=== PATIENT | female | born 1995 | race Caucasian/White ===

== ENCOUNTER 2017-05-04 09:42 | Emergency (ER) | payer OTHER, MEDICAID, SELFPAY ==
[2017-05-04 09:44] VITALS: BP 126/77; PULSE 69; RESP 15; TEMP 36.7; O2SAT 97; BMI 27.8
[2017-05-04 11:20] LABS: Carboxyhemoglobin Frac (CO) 3.3 % (0.0-1.5)
--- NOTE | 2017-05-04 11:51 | ED.VISSUMM ---
- ER Visit Summary Date of Service: 05/04/17 Chief Complaint: [Possible chemical exposure] History of Present Illness: The patient is a 21 F [presents to the emergency department with complaint of possible chemical exposure while at work. 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 Patient states that she will likely quit this job. Patient states when she was out of the garage her symptoms seem to resolve. Patient describes just a minimal headache at this time. She denies any visual changes.] Physical Examination: [HEENT-PERRLA, EOMI. Cranial nerves II through XII grossly intact. TMs clear. Mucous membranes moist. No adenopathy. Cardiovascular-regular rate and rhythm without murmur or ectopy Lungs-clear to auscultation, chest wall stable without crepitus or subcu emphysema Abdomen-normoactive bowel sounds, soft, nontender, no rebound or rigidity, no peritoneal signs. Extremities-intact ?4, normal range of motion, normal pulses, atraumatic] Test Results: [Carboxyhemoglobin was 3.3] Emergency Department Course and Treatment: [None indicated] Treatment Plan: [Patient states that she will not be returning to that garage. Patient is instructed to avoid the garage till issues associated with the propane heaters and the air compressor there are resolved.] Disposition: [Discharged home in stable condition. Patient advised to follow-up with corporate care in 3-5 days.] Impression: [Chemical exposure-etiology uncertain-suspect related to propane heaters] This note was generated with [employer] dictation software. It may contain incorrect words, spelling, and punctuation that were not noted in review of the chart prior to signing ED Disposition - Plan for ED Patient: Chief Complaint: Other, Pain/Inj Referrals: Care Physician,No Primary [Primary Care Provider] -
--- NOTE | 2017-05-04 11:54 | ED.DEP ---
ED Disposition - Plan for ED Patient: Chief Complaint: Other, Pain/Inj Instructions: ED Chemical Conjunctivitis, ED Inhalation Chemical Referrals: Care Physician,No Primary [Primary Care Provider] - Corporate,Care [GROUP OF PHYSICIANS] - 3-5 Days
== END 2017-05-04 12:12 | disposition home or self-care (01) ==
PROVIDERS: Emergency Provider Emergency Medicine
DX: Z77.098 Contact with and (suspected) exposure to other hazardous, chiefly nonmedicinal, chemicals (principal); Z72.0 Tobacco use
CPT/HCPCS: 82375; 99282

== ENCOUNTER → 2022-12-06 | Outpatient (CLI) | payer OTHER, BC, SELFPAY ==
--- NOTE | 2022-12-06 14:42 | RAD_ITS ---
STUDY: X-RAY CHEST REASON FOR EXAM: Female, 27 years old. cough TECHNIQUE: PA and lateral views of the chest. COMPARISON: None. FINDINGS: The lungs are clear and expanded. There is no demonstrated pleural abnormality. Normal size heart. Normal mediastinum and joe. Normal visualized pulmonary arteries. Normal visualized aortic arch and descending thoracic aorta. Normal visualized thoracic spine. Normal visualized ribs, clavicles, and shoulders. There is no demonstrated abnormality of the visualized soft tissue structures of the upper abdomen. RAD/Chest PA and Lateral IMPRESSION: Normal x-ray examination of the chest. Electronically Signed: Homero Painter MD at 15:38 EDT ,
== END | disposition home or self-care (01) ==
LOC: MTRAD 14:41
PROVIDERS: Referring Provider Physician Assistant; Visit Provider Physician Assistant
DX: R05.9 Cough, unspecified (principal)
CPT/HCPCS: 71046

== ENCOUNTER 2024-07-15 16:35 | Emergency (ER) | payer OTHER, SELFPAY ==
[2024-07-15 16:36] VITALS: BP 120/60; PULSE 82; RESP 19; TEMP 36.5; O2SAT 99; BMI 25.4
[2024-07-15 16:55] LABS: Absolute Lymphocyte Count 2.69 X10^3/uL (0.83-4.51); Absolute Neutrophil Count 6.2 X10^3/uL (2.0-7.7); Basophil# 0.05 X10^3/uL; Basophil% 0.5 % (0-1); Hematocrit 39.4 % (37-47); Hemoglobin 13.5 g/dL (12.0-15.0); Lymphocyte # 2.69 X10^3/ul (0.83-4.51); Lymphocyte % 27.6 % (19-41); Mean Corp Hgb Conc 34.3 g/dL (32-36); Mean Corpuscular Hgb 31.9 pg (27.0-32.0); Mean Corpuscular Volume 93.1 fL (81-99); Mean Platelet Vol. 9.8 fl (6.2-12.0); Monocyte# 0.65 X10^3/uL; Monocyte% 6.7 % (0-10); NRBC Flagged by Analyzer 0 % (0-5); Neutrophil # 6.23 X10^3/uL (2.7-7.7); Neutrophil % 63.8 % (47-70); Platelet Count 277 K/mm3 (150-450); RBC Distribution Width CV 13.3 % (11.6-14.6); RBC Distribution Width SD 45.8 fl (35.1-43.9); Red Blood Count 4.23 M/mm3 (4.2-5.4); White Blood Count 9.8 K/mm3 (4.4-11.0)
[2024-07-15 17:14] LABS: ALB/GLOB Ratio 1.4 RATIO (0.9-2.4); AST(SGOT) 13 U/L (<=31); Alanine Aminotransfer ALT/SGPT 7 U/L (<=34); Albumin, Serum 4.3 g/dL (3.5-5.0); Alkaline Phosphatase 94 U/L (35-104); Anion Gap 11 (5-15); BUN 5 mg/dL (4-19); BUN/Creat Ratio 5.7 RATIO (10-20); Calcium,Total 9.3 mg/dL (7.6-11.0); Carbon Dioxide 23.8 mmol/L (21.0-32.0); Chloride 105 mmol/L (98-108); EST Glomerular Filtration Rate 91 (>60); Estimated Creatinine Clearance 89.21 ml/min (50-250); Globulin 3.2 g/dL (2.2-4.2); Glucose 55 mg/dL (70-99); Lipase 32 U/L (13-75); Protein, Total 7.4 g/dL (5.9-8.4); Sodium Level 139 mmol/L (133-145); Total Bilirubin 1.02 mg/dL (0.00-1.30)
[2024-07-15 17:19] LABS: Internal QC Validated? YES +Cl - CLEAR BKGD; Pregnancy, Serum, hCG Quali. POSITIVE Negative
--- NOTE | 2024-07-15 17:36 | US_ITS ---
PROCEDURE: TRANSVAGINAL W/PREG US 07/15/2024 REASON FOR EXAM: ABD PAIN EARLY TECHNIQUE: Transvaginal FINDINGS: Comments: Number of Gestational Sacs: 1 Gestational Sac Shape: Normal Number of Fetuses: 1 Heart Rate: (average) Survey of Visible Anatomic Structures: Grossly unremarkable for gestational age. Nasal Bones: Yolk Sac: Present and unremarkable. Placenta: Presently not well-visualized Amniotic Fluid Volume: Subjectively normal for gestational age. Uterine Abnormalities: Maternal uterus is unremarkable. Ovaries / Adnexa: Both maternal ovaries are visualized and unremarkable. DIMENSIONS: Parameter Measurement / EGA [place] Rump Length: Not visualized/ Gestational Sac: 7 mm/5 weeks 3 days Yolk Sac: 2 mm/ ESTIMATED GESTATIONAL AGE: By Ultrasound: 5 weeks 3 days By LMP: 5 weeks 2 days ESTIMATED DATE OF DELIVERY: By Ultrasound: 03/14/2025 By LMP: 03/15/2025 US/Transvaginal w/Preg US IMPRESSION: Early intrauterine gestational sac with a yolk sac but no identifiable po le. Differential diagnosis includes an early intrauterine , or incomplete . Serial beta HCG measurements i s recommended. Reading Location: [id number]
[2024-07-15 18:59] VITALS: BP 100/63; PULSE 67; RESP 14; O2SAT 100
--- NOTE | 2024-07-15 19:20 | EX.ED.DYSGE1 ---
HPI History of Present Illness Chief Complaint: Abd Pain [facility] Medical History (Updated 12/06/22 @ 15:33 by Fausto CHRISTIANSON, PA) Contact with and (suspected) exposure to other viral communicable diseases Acute streptococcal pharyngitis COVID-19 URI (upper respiratory infection) Home Medications ?Medication ?Instructions ?Recorded ?Last Taken ?Type ovzxiptaxxvtzoz-qxneehvqzxigqro-FP 10 ml PO Q4H PRN 12/06/22 Unknown History 2 mg-30 mg-10 mg/5 mL oral syrup clindamycin HCl 300 mg capsule 300 mg PO Q8H 12/06/22 Unknown History methylprednisolone 4 mg tablets in See Rx Instructions PO PER PKG DIR 12/06/22 Unknown Rx a dose pack (Medrol (Landry)) #21 tabs norgestimate 0.25 mg-ethinyl 1 tab PO DAILY 12/06/22 Unknown History estradiol 35 mcg tablet ([place]Linyah) Allergy/AdvReac Type Severity Reaction Status Date / Time amoxicillin Allergy Angioedema Verified 12/06/22 14:39 Penicillins (PCN) Allergy Angioedema Verified 12/06/22 14:39 Social History (Updated 12/06/22 @ 15:38 by Brooklyn Bell) Smoking Status: Current every day smoker tobacco type: e-cigarettes alcohol intake: never EXAM Physical Exam Const Vital Signs: 07/15/24 16:36 07/15/24 18:59 Temperature 97.7 F L Temperature Source Temporal Pulse Rate 82 67 Respiratory Rate 19 H 14 Blood Pressure 120/60 100/63 Blood Pressure Mean 80 75 Pulse Ox 99 100 Oxygen Delivery Method Room Air Room Air [facility] MDM MDM Narrative Medical decision making narrative: HISTORY OF PRESENT ILLNESS: Chief complaint: Abdominal pain, early 28-year-old female who is a G1, P0 presents with concern for abdominal pain in early . She did note some spotting several days ago but denies any bleeding. Denies any STDs. Denies abdominal pain now but does note cramping throughout the last 5 weeks. Notes nausea and breast tenderness as well. Denies vomiting. Denies history abdominal surgeries. Denies urinary complaints. Denies changes in bowel habits. REVIEW OF SYSTEMS: Pertinent positives: Abdominal pain, vaginal spotting Pertinent negatives: Vomiting PHYSICAL EXAM: Nursing triage notes reviewed, Vital signs reviewed Constitutional: please see mdm HENT: MMM Eyes: Pupils equal round and reactive to light, Extraocular muscles intact Neck: No stridor, no JVD, full neck ROM Lungs: Clear to auscultation, No wheezing or rales. No increased work of breathing, no conversational dyspnea, no accessory muscle use, no nasal flaring. No respiratory distress noted Heart: Regular rate and rhythm, No murmurs, No rubs and No gallops, 2+ distal pulses (radial, femoral, posterior tibial) in all extremities Abdomen: Soft, there is no tenderness, rigidity, rebound or guarding, no obvious peritoneal signs, no palpable pulsatile abdominal masses, no auscultated abdominal bruit : No CVAT Extremities: No edema Neuro: No new focal neurological deficits, cranial nerves II through XII intact, 5/5 strength in all present extremities. Intact sensation to light touch in all present extremities, 2+ reflexes bilateral patella tendons. Skin: No rash or lesions noted MEDICAL DECISION MAKING: Chief Complaint: please see HPI External records reviewed: Reviewed prior imaging studies Factors affecting care: none Social determinants of health: none History obtained from others: none Consults: none [facility] Narrative: The patient was initially hemodynamically stable, afebrile and nontoxic-appearing. Abdominal exam was benign I considered the following differential diagnosis: Early intrauterine , ectopic , miscarriage I obtained a ultrasound and labs ALL IMAGES (IF OBTAINED) HAVE BEEN PERSONALLY REVIEWED AND INTERPRETED BY MYSELF. CBC with no leukocytosis, no anemia or thrombocytopenia CMP without evidence of acute kidney injury, significant electrolyte abnormality, anion gap to suggest end organ hypo-perfusion, no evidence of metabolic acidosis with a normal bicarbonate, no evidence of hepatobiliary obstructive pathology. Lipase is wnl indicating no pancreatic inflammation. Serum test Transvaginal ultrasound showed findings consistent with likely intrauterine although is not definitive. Patient would need repeat outpatient quant and ultrasound. Discussed this with patient who agreed to follow with RN BARIATRIC. Strict return precautions were discussed. Follow-up was arranged. The patient and/or family, caregivers express understanding. The patient and/or family, caregivers agrees with the plan. Shared decision making: I will have a discussion with the patient and or visitors regarding risk/benefits of further testing or admission. They will be made aware of of the risk/benefits inherent in this decision they will be given the opportunity to voice understanding. Total critical care time today provided was at least 0 minutes. This excludes separately billable procedures. Critical care time (if documented) is secondary to the patient having high probability of clinically significant/life threatening deterioration in the patient's condition which required my urgent intervention. Impression: 1. Abdominal pain 2. First trimester Dispo: Discharge home This note was generated with [employer] dictation software. It may contain incorrect words, spelling, and punctuation that were not noted in review of the chart prior to signing. Lab Data Labs: Laboratory Results - last 24 hr 07/15/24 16:45 WBC 9.8 RBC 4.23 Hgb 13.5 Hct 39.4 MCV 93.1 MCH 31.9 MCHC 34.3 RDW Std Deviation 45.8 H RDW Coeff of Jodi 13.3 Plt Count 277 MPV 9.8 Immature Gran % (Auto) 0.400 Neut % (Auto) 63.8 Lymph % (Auto) 27.6 [place] % (Auto) 6.7 Eos % (Auto) 1.0 Baso % (Auto) 0.5 Absolute Neuts (auto) 6.2 Absolute Lymphs (auto) 2.69 Nucleated RBC % 0 Sodium 139 Potassium 4.0 Chloride 105 Carbon Dioxide 23.8 Anion Gap 11 BUN 5 Creatinine 0.90 Estim Creat Clear Calc 89.21 Est GFR (MDRD) Non-Af 91 BUN/Creatinine Ratio 5.7 L Glucose 55 L Calcium 9.3 Total Bilirubin 1.02 AST 13 ALT 7 Alkaline Phosphatase 94 Total Protein 7.4 Albumin 4.3 Globulin 3.2 Albumin/Globulin Ratio 1.4 Lipase 32 Serum , Qual POSITIVE H Radiography Diagnostic Testing: Clinical Impression(s) from Imaging Studies Obstetrics Ultrasound 07/15/24 17:36 IMPRESSION: Early intrauterine gestational sac with a yolk sac but no identifiable pole. Differential diagnosis includes an early intrauterine , or incomplete . Serial beta HCG measurements is recommended. Reading Location: [id number] Discharge Plan Triage Chief Complaint: Abd Pain ED Provider: Jacinto Abarca Dx/Rx/DC Orders Prescriptions: No Action vfftermqxqcwfpa-owoxkzxif-PL 2-30-10 mg/5 mL syrup 10 ml PO Q4H PRN Patient Comments: take TEN ml BY MOUTH EVERY 4 HOURS BY MOUTH NEEDED FOR 5 DAYS clindamycin HCl 300 mg capsule 300 mg PO Q8H Patient Comments: TAKE 1 CAPSULE BY MOUTH EVERY 8 HOURS FOR 10 DAYS norgestimate-ethinyl estradiol [[place]ah] 0.25-35 mg-mcg tablet 1 tab PO DAILY Patient Comments: Take 1 tablet by mouth daily. methylprednisolone [Medrol (Landry)] 4 mg tablets,dose pack See Rx Instructions PO PER PKG DIR Qty: 21 0RF Rx Instructions: PO PER PKG DIR Primary Care Provider: Elisabet Morgan NP Referrals: Elisabet Morgan NP, JORDAN WORKER-C [Primary Care Provider] - Print Language: Korean
[2024-07-15 20:00] VITALS: PULSE 72; RESP 16
[2024-07-15 20:29] LABS: hCG Titer Quant., Serum 5000 mIU/mL (<9 non-preg)
[2024-07-15 21:39] VITALS: BP 100/63; PULSE 72; RESP 15; TEMP 36.5; O2SAT 100
== END 2024-07-15 21:40 | disposition home or self-care (01) ==
PROVIDERS: Emergency Provider Emergency Medicine; PCP Nurse Practitioner Family; Visit Provider Emergency Medicine
DX: O99.891 Other specified diseases and conditions complicating pregnancy (principal); R10.9 Unspecified abdominal pain; Z3A.00 Weeks of gestation of pregnancy not specified
CPT/HCPCS: 76817; 80053; 83690; 84702; 84703; 85025; 86900; 86901; 99282; A4216

== ENCOUNTER 2024-08-29 22:29 | Emergency (ER) | payer OTHER, SELFPAY ==
[2024-08-29 22:29] VITALS: BP 130/76; PULSE 72; RESP 18; TEMP 36.8; O2SAT 100; BMI 25.4
[2024-08-29 22:58] LABS: Absolute Lymphocyte Count 3.48 X10^3/uL (0.83-4.51); Absolute Neutrophil Count 8.1 X10^3/uL (2.0-7.7); Basophil# 0.04 X10^3/uL; Basophil% 0.3 % (0-1); Eosinophil# 0.14 X10^3/uL; Eosinophils% 1.1 % (0-5); Hematocrit 35.6 % (37-47); Hemoglobin 12.2 g/dL (12.0-15.0); Lymphocyte # 3.48 X10^3/ul (0.83-4.51); Mean Corp Hgb Conc 34.3 g/dL (32-36); Mean Corpuscular Hgb 31.9 pg (27.0-32.0); Mean Corpuscular Volume 93.2 fL (81-99); Monocyte# 0.62 X10^3/uL; NRBC Flagged by Analyzer 0 % (0-5); Neutrophil # 8.13 X10^3/uL (2.7-7.7); Neutrophil % 65.4 % (47-70); Platelet Count 242 K/mm3 (150-450); RBC Distribution Width CV 12.9 % (11.6-14.6); RBC Distribution Width SD 44.1 fl (35.1-43.9); Red Blood Count 3.82 M/mm3 (4.2-5.4); White Blood Count 12.4 K/mm3 (4.4-11.0)
--- NOTE | 2024-08-29 23:03 | EDS_ITS ---
HPI HPI - Female History of Present Illness Chief Complaint: Vag Bld, Preg Narrative Narrative: Patient is a 28-year-old female with no known significant past medical history who presented to the emergency department the chief complaint of brown spotting. Patient states that she about a week ago started having brown discharge states that she followed up with her CLERK GUIDE in outpatient setting they did an ultrasound that showed a intrauterine and ultimately sent her home. States that for the past few days she has had cramping in the lower portion of her abdomen noted that today while at work she had bright red blood and more brown discharge and her usual therefore she discussed with her mother and they decided to come here for the evaluation management. [facility] Medical History Contact with and (suspected) exposure to other viral communicable diseases Acute streptococcal pharyngitis COVID-19 URI (upper respiratory infection) Home Medications ?Medication ?Instructions ?Recorded ?Last Taken ?Type obpjiivokgbmwqb-rmesrllzhovmkqh-KM 10 ml PO Q4H PRN Unknown History 2 mg-30 mg-10 mg/5 mL oral syrup clindamycin HCl 300 mg capsule 300 mg PO Q8H 12/06/22 Unknown History methylprednisolone 4 mg tablets in See Rx Instructions PO PER PKG DIR 12/06/22 Unknown Rx a dose pack (Medrol (Landry)) #21 tabs norgestimate 0.25 mg-ethinyl 1 tab PO DAILY 12/06/22 U nknown History estradiol 0.035 mg tablet ([place]-Linyah) Allergy/AdvReac Type Severity Reaction Status Date / Time amoxicillin Allergy Angioedema Verified 08/29/24 22:31 Penicillins (PCN) Allergy Angioedema Verified 08/29/24 22:31 Social History Smoking Status: Current every day smoker tobacco type: e-cigarettes alcohol intake: never ROS ROS ED ROS Narrative constitutional: Denies any fevers or chills Cardiovascular: Denies chest pain Respiratory: Denies shortness of breath Abdomen: Complains of abdominal cramping as noted above, states that she is cons tantly nauseous since getting this is not new denies vomiting : Complains of spotting as noted above denies any painful urination Neurological: Denies any numbness, wheeze, tingling Musculoskeletal: Denies back pain Skin: Denies any rashes or lesions EXAM Physical Exam Narrative Exam Narrative: General: Patient lying in bed rest comfortably. In acute distress Head: Atraumatic, normocephalic Eyes: PERRL bilateral, EOMI bilateral, no conjunctival injection noted Neck: Soft, supple, trach midline Cardiovascular: Regular in rhythm no murmurs gallops rubs noted Respiratory: Clear to auscultation bilaterally Abdomen: Soft, nondistended, nontender to palpation Extremities: +5/5 strength noted in the bilateral upper and lower extremities Neurological: Patient follow commands knew that she was at [facility] year is 2024 Skin: Warm, dry, intact no rashes lesions noted Const Vital Signs: 08/29/24 22:29 08/30/24 00:29 08/30/24 02:03 Temperature 98.2 F Temperature Source Oral Pulse Rate 72 67 65 Respiratory Rate 18 16 15 Blood Pressure 130/76 H 92/58 L 92/51 L Blood Pressure Mean 94 69 64 Pulse Ox 100 100 100 Oxygen Delivery Method Room Air Room Air Room Air 08/30/24 04:00 Temperature Temperature Source Pulse Rate 80 Respiratory Rate 18 Blood Pressure 99/63 Blood Pressure Mean 75 Pulse Ox 98 Oxygen Delivery Method Room Air MDM MDM MDM Narrative Medical decision making narrative: Patient is a 28-year-old female who presented to the emergency department with concern of vaginal spotting. On the differential diagnosis includes but not limited to missed , threatened miscarriage, UTI. Once workup is obtained reviewed she will be reevaluated. Patient's CBC was reviewed and showed a white count of 12,000, hemoglobin is 12.2, platelet count of 242. Patient sodium normal 135, potassium normal 3.8, creatinine was noted to be 0.62. Patient's quant level was 63,097. Patient urinalysis reviewed showed a negative nitrites 25 leuks with 1+ bacteria and 0-5 white cells this was sent for culture she was advised to follow-up on this with her CLERK GUIDE. Multiple people attempted to obtain heart tones including we called OB team down and they were unable to do so since this was the case we ordered a transvaginal ultrasound was ordered. Ultrasound reviewed showed a single live intrauterine fundal portion of the uterus with heart tones at 174 beats per minutes. Discussed results with patient she would like to go home at this point time. She is vies follow-up on urine culture with her CLERK GUIDE and she is placed on pelvic rest. She is advised no intercourse nothing inserted in her vagina. She is agreeable spinal course concerns answered she was discharged home in stable condition. Lab Data Labs: Laboratory Results - last 24 hr 08/29/24 08/29/24 22:43 23:10 WBC 12.4 H RBC 3.82 L Hgb 12.2 Hct 35.6 L MCV 93.2 MCH 31.9 MCHC 34.3 RDW Std Deviation 44.1 H RDW Coeff of Jodi 12.9 Plt Count 242 MPV 10.0 Immature Gran % (Auto) 0.200 Neut % (Auto) 65.4 Lymph % (Auto) 28.0 [place] % (Auto) 5.0 Eos % (Auto) 1.1 Baso % (Auto) 0.3 Absolute Neuts (auto) 8.1 H Absolute Lymphs (auto) 3.48 Nucleated RBC % 0 Sodium 135 Potassium 3.8 Chloride 102 Carbon Dioxide 23.1 Anion Gap 10 BUN 7 Creatinine 0.62 L Estim Creat Clear Calc 129.75 Est GFR (MDRD) Non-Af 126 BUN/Creatinine Ratio 10.5 Glucose 83 Calcium 8.9 HCG, Quant 06251 H Urine Color Yellow Urine Clarity Clear Urine pH 6.0 Ur Specific [place] 1.025 Urine Protein 30 H Urine Glucose (UA) Normal Urine Ketones 15 H Urine Occult Blood 250 H Urine Nitrite Negative Urine Bilirubin Negative Urine Urobilinogen Normal Ur Leukocyte Esterase 25 H Urine RBC 0-5 SEEN Urine WBC 0-5 SEEN Ur Squamous Epith Cells 5-10 SEEN Urine Bacteria 1+ Urine Mucus 0 SEEN Blood Type O NEGATIVE Radiography Diagnostic Testing: Clinical Impression(s) from Imaging Studies Obstetrics Ultrasound 08/30/24 03:05 IMPRESSION: Single live intrauterine fundal portion of the uterus with heart tones 174 beats per minute. Reading Location: [facility] Discharge Plan Triage Chief Complaint: Vag Bld, Preg ED Provider: Carlos Bliss Dx/Rx/DC Orders Clinical Impression: Vaginal bleeding affecting early Prescriptions: No Action knmrbnmwdqqyggw-mlgqpbqqt-AD 2-30-10 mg/5 mL syrup 10 ml PO Q4H PRN Patient Comments: take TEN ml BY MOUTH EVERY 4 HOURS BY MOUTH NEEDED FOR 5 DAYS clindamycin HCl 300 mg capsule 300 mg PO Q8H Patient Comments: TAKE 1 CAPSULE BY MOUTH EVERY 8 HOURS FOR 10 DAYS norgestimate-ethinyl estradiol [[place]] 0.25-35 mg-mcg tablet 1 tab PO DAILY Patient Comments: Take 1 tablet by mouth daily. methylprednisolone [Medrol (Landry)] 4 mg tablets,dose pack See Rx Instructions PO PER PKG DIR Qty: 21 0RF Rx Instructions: PO PER PKG DIR Primary Care Provider: Elisabet Morgan NP Referrals: Elisabet Morgan RECORDS MANAGEMENT SPECIALIST, RECORDS MANAGEMENT SPECIALIST-C [Primary Care Provider] - Activity Restrictions/Additional Instructions: Follow-up with your CLERK GUIDE. You were given a hard copy of your ultrasound re port. You are placed on pelvic rest no sex nothing inserted in your vagina until you are cleared by CLERK GUIDE. Follow-up on urine culture with your OB as well. Print Language: Danish Disposition Disposition: Home, Self Care
[2024-08-29 23:16] LABS: Mucous, Urine 0 SEEN /hpf (<or=2+)
[2024-08-29 23:21] LABS: Glucose, Dipstick Normal (Normal); Ketone-Dipstick 15 mg/dl (Negative); Leukocyte Esterase-Dipstick 25 /ul (Negative); Nitrite-Dipstick Negative (Negative); Occult Blood-Urine 250 /ul (Negative); Protein-Dipstick 30 mg/dl (Negative); Specific Gravity, Urine 1.025 (1.002-1.030); Urine Bilirubin Dipstick Negative (Negative); Urine Urobilinogen Normal (Normal)
[2024-08-29 23:34] LABS: Color, Urine Yellow (Yellow); Urine Clarity Clear (Clear)
[2024-08-29 23:43] LABS: Anion Gap 10 (5-15); BUN 7 mg/dL (4-19); BUN/Creat Ratio 10.5 RATIO (10-20); Calcium,Total 8.9 mg/dL (7.6-11.0); Carbon Dioxide 23.1 mmol/L (21.0-32.0); Chloride 102 mmol/L (98-108); Creatinine, Serum 0.62 mg/dL (0.70-1.20); EST Glomerular Filtration Rate 126 (>60); Estimated Creatinine Clearance 129.75 ml/min (50-250); Glucose 83 mg/dL (70-99); Potassium 3.8 mmol/L (3.3-5.1); Sodium Level 135 mmol/L (133-145)
[2024-08-29 23:49] LABS: Squamous Epithelial Cells - UA 5-10 SEEN /hpf (5-10); White Blood Cells 0-5 SEEN /hpf (0-5)
[2024-08-29 23:51] LABS: Bacteria 1+ /hpf (None Seen); Red Blood Cells-Urine 0-5 SEEN /hpf (0-5)
[2024-08-30 00:29] VITALS: BP 92/58; PULSE 67; RESP 16; O2SAT 100
[2024-08-30 02:03] VITALS: BP 92/51; PULSE 65; RESP 15; O2SAT 100
--- NOTE | 2024-08-30 03:00 | ED.RN ---
KATIE Richards and KATIE Keen attempted to obtain heart rate with the doppler, [facility] called and two additional nurses attempted to obtain heart rate. All unable to obtain heart tones at this time. notified.
--- NOTE | 2024-08-30 03:05 | US_ITS ---
PROCEDURE: TRANSVAGINAL W/PREG US 08/30/2024 REASON FOR EXAM: VAG BLEEDING FIRST TRIMESTER TECHNIQUE: Transvaginal 1st trimester ultrasound FINDINGS: Comments: Transvaginal imaging was performed Single live intrauterine fundal portion of the uterus with heart tones 174 beats per minute. No sandip-sac hemorrhage identified. Estimated gestational age by ultrasound 11 weeks and 3 days, TORRI 03/18/2025 Estimated gestational age by LMP 11 weeks 6 days, TORRI 03/15/2025 4 mm yolk sac. The uterus measures 11.4 x 9.8 x 7.1 cm. Cervix appears closed. The right ovary measures 2.8 x 2.9 x 1.4 cm and appears within limits. The left ovary measures 2.5 x 2.4 x 1.7 cm and appears within limits. No evidence of adnexal mass. No free fluid seen. US/Transvaginal w/Preg US IMPRESSION: Single live intrauterine fundal portion of the uterus with hear t tones 174 beats per minute. Reading Location: [id number]
[2024-08-30 03:07] LABS: hCG Titer Quant., Serum 63097 mIU/mL (<9 non-preg)
[2024-08-30 04:00] VITALS: BP 99/63; PULSE 80; RESP 18; O2SAT 98
[2024-08-30 05:37] VITALS: BP 96/55; PULSE 60; RESP 18; TEMP 36.8; O2SAT 99
== END 2024-08-30 05:38 | disposition home or self-care (01) ==
PROVIDERS: Emergency Provider Emergency Medicine; PCP Nurse Practitioner Family; Visit Provider Emergency Medicine
DX: O20.9 Hemorrhage in early pregnancy, unspecified (principal); F17.290 Nicotine dependence, other tobacco product, uncomplicated; O99.330 Smoking (tobacco) complicating pregnancy, unspecified trimester; Z3A.00 Weeks of gestation of pregnancy not specified
CPT/HCPCS: 76817; 80048; 81001; 84702; 85025; 86900; 86901; 87086; 99283; A4216

== ENCOUNTER 2025-03-09 02:55 | Outpatient (CLI) | payer MEDICAID, SELFPAY ==
--- OUTSIDE RECORDS SUMMARY | 2025-03-09 03:05 | XMS RPT_ITS | CCD ---
Author Organization [facility] Care Team Providers Care Director Environmental Name Role Phone PROVIDER, UNKNOWN Admitting Unavailable BAUDILIO ARCHIBALD Attending Unavailable Queden SPECIAL SERVICES COORDINATOR.Lulu SERVINny A Primary Care Provider Joselyn Lovelace MD Primary Care Provider [phone] [facility] SPECIAL SERVICES COORDINATOR.Elisabet SERVIN A Primary Care Provider Care Physician, No Primary Primary Care Provider Unavailable Care Physician, No Primary Referring Provider Un available MEGHAN Dover Attending Provider Joselyn Lovelace MD Primary Care Provider Queden SPECIAL SERVICES COORDINATOR.Lulu SERVINny A Primary Care Provider Queden SPECIAL SERVICES COORDINATOR - GARETH Elisabet Primary Care Provider MALIA VALLES Attending Unavailable [facility] Primary Care Unavailable ES[facility] Primary Care Unavailable KEYONA CONRAD Attending Unavailable QUEDEN, ELISABET Primary Care Unavailable Dr. Jacinto Abarca DO Emergency Provider [phone] Queden POWER GRADER OPERATOR-C, Elisabet Primary Care Provider Carlos Bliss Attending Unavailable Queden POWER GRADER OPERATOR, Elisabet Primary Care Unavailable Queden POWER GRADER OPERATOR, Elisabet Primary Care Unavailable Jacinto Abarca Attending Unavailable Unavailable Primary Care Provider Unavailabl e QUEDEN, ELISABET A Primary Care Unavailable VON LOZANO Attending Unavailable QUEDEN, ELISABET A Primary Care Unavailable GEOFFREY ARTHUR Attending Unava ilable QUEDEN, ELISABET A Primary Care Unavailable ARNOLDO HEREDIA Attending Unavailable ARNOLDO HEREDIA Admitting Unavailable QUEDEN, ELISABET A Primary Care Unavailable QUEDEN, ELISABET A Primary Care Unavailable AGUSTÍN BLACKWELL Attending Unavailable QUEDEN, ELISABET A Primary Care Unavailable SHEETSCAROLYNN Attending Unavailable QUEDEN, ELISABET A Primary Care Unavailable SHEETSCAROLYNN C Referring Unavailable QUEDEN, ELISABET A Primary Care Unavailable HAURY, FREDA Referring Unavailable QUEDEN, ELISABET A Primary Care Unavailable KLARISSA RAIN Attending Unavailable QUEDEN, ELISABET A Primary Care Unavailable QUEDEN, ELISABET A Primary Care Unavailable WISWELLOCTAVIA Attending Unavailable QUEDEN, ELISABET A Primary Care Unavailable HAURY, FREDA Referring Unavailable SUNITHA AGUILAR Attending Unavailable QUEDEN, ELISABET A Primary Care Unavailable HAURY, FREDA Referring Unavailable QUEDEN, ELISABET A Primary Care Unavailable WISOCTAVIA CURTIS Attending Unavailable QUEDEN, ELISABET A Primary Care Unavailable HAURY, FREDA Referring Unavailable QUEDEN, ELISABET A Primary Care Unavailable JOSE REESE Referring Unavailable QUEDEN, ELISABET A Primary Care Unavailable WISWELL, OCTAVIA Referring Unavailable QUEDEN, ELISABET A Primary Care Unavailable TIJOSE DUGGAN Attending Unavailable QUEDEN, ELISABET A Primary Care Unavailable WISWELLFLORINAA Attending Unavailable QUEDEN, ELISABET A Primary Care Unavailable HAURY, FREDA Attending Unavailable QUEDEN, ELISABET A Primary Care Unavailable SCARLETYSUSSYT DANIE GUANRE Attending Unavail able QUEDEN, ELISABET A Primary Care Unavailable NEYHART DANIE GUANRE Attending Unavail able QUEDEN, ELISABET A Primary Care Unavailable HAURY, FREDA Attending Unavailable NEYHART GUAN, JYOTSNA Attending Unavail able QUEDEN, ELISABET A Primary Care Unavailable QUEDEN, ELISABET A Primary Care Unavailable NEYHART ROGE, JYOTSNA Attending Unavail able QUEDEN, ELISABET A Primary Care Unavailable KLARISSA RAIN Attending Unavailable SUDARSHAN HONG Attending Unavailable QUEDEN, ELISABET A Primary Care Unavailable QUEDEN, ELISABET A Primary Care Unavailable HAURY, FREDA Referring Unavailable TIANA CARPENTER Attending Unavailable Allergies Allergy Classification Reported Allergen(s) Allergy Type Date of Onset Reaction(s) Facility (20 sources) Amoxicillin; Translations: [AMOXICILLIN] Drug Allergy 07-21-2014 Swelling [facility] (10 sources) Penicillins; Translations: [PENICILLINS] Drug Allergy 07-21-2014 Swelling [facility] (7 sources) Penicillins Drug Allergy 07-21-2014 Swelling [facility] (11 sources) Penicillins Drug Allergy 07-21-2014 Swelling [facility] (2 sources) Penicillins Allergy to substance 12-06-2022 Angioedema [facility] (20 sources) Penicillins Drug Allergy 07-21-2014 Swelling [facility] (1 source) Amoxicillin Drug Allergy 08-29-2024 [facility] (1 source) Penicillins Drug allergy (disorder) 08-29-2024 [facility] Medications Current Medications Medication Drug Class(es) Dates Sig (Normalized) Sig (Original) aspirin 81 mg delayed release oral tablet (20 sources) Platelet Aggregation Inhibitor, Nonsteroidal Anti-inflammatory Drug Start: 08-01-2024 take 1 tablet by mouth once daily aspirin, enteric coated (ECOTRIN LOW STRENGTH) 81 mg EC tablet Indications: Encounter for supervision of high risk in first trimester, antepartum (HCC) Take 1 tablet by mouth once daily. 90 tablet 3 08/01/2024 Active azithromycin 250 mg oral tablet (1 source) Macrolide Antimicrobial Start: 11-02-2022 End: 11-06-2022 take 1 tablet by mouth once daily azithromycin (ZITHROMAX) 250 mg tablet Take 1 tablet by mouth once daily for 4 days. 4 tablet 0 11/02/2022 11/06/2022 Active Comment on above: Take 1 tablet by [facility] once daily for 4 days. brompheniramine maleate 0.4 mg/ml / dextromethorphan hydrobromide 2 mg/ml / pseudoephedrine hydrochloride 6 mg/ml oral solution (2 sources) alpha-Adrenergic Agonist, Uncompetitive P-lcqxxj-P-aspartat e Receptor Antagonist, Sigma-1 Agonist Start: 12-06-2022 take 1 mL by mouth every four hours as needed Brompheniramine-P seudoeph-Dm 30-10 mg/5 mL syrup Active 10 mL PO Q4H as needed December 06, 2022 12:00am Start: 12-06-2022 take 1 mL by mouth every four hours Zaddebnccpcgfsg-Bucaybmom-Dr Active 10 M L PO Q4H December 06, 2022 12:00am clindamycin 300 mg oral capsule (2 sources) Lincosamide Antibacterial Start: 12-06-2022 take 1 capsule by mouth every eight hours Clindamycin Hcl 300 mg capsule Active 300 mg PO Q8H December 06, 2022 12:00am diazePAM 5 mg oral tablet (2 sources) Benzodiazepine Start: 06-12-2024 End: 06-15-2024 take 1 tablet by mouth every eight hours as needed for muscle spasms diazePAM (Valium) 5 MG tablet Indications: Pleuritic chest pain , Acute cough Take 1 tablet (5 mg) by mouth every 8 hours as needed for muscle spasms for up to 3 days. 9 tablet 06/12/2024 06/15/2024 Active ethinyl estradiol 0.035 mg / norgestimate 0.25 mg oral tablet (10 sources) Progestin, Estrogen Start: 12-06-2022 End: 07-10-2023 norgestimate 0.25 mg-ethinyl estradiol 35 mcg (MONO-LINYAH) 0.25-35 mg-mcg per tablet Take by mouth. 0 12/06/2022 07/10/2023 Discontinued (Other) Start: 12-06-2022 Norgestimate-E thinyl Estradiol ([place]-Linyah) 0.25-35 mg-mcg tablet Active 1 {tbl} PO DAILY December 06, 2022 12:00am Start: 12-06-2022 take 1 tablet by dewey once daily Norgestimate-Ethinyl Estradiol ([place]-Linyah) 0.25-35 mg-mcg tablet Active 1 TABLET PO DAILY December 06, 2022 12:00am Start: 11-15-2022 End: 06-30-2023 take 1 tablet by mouth once daily norgestimate-ethinyl estradiol (Sprintec 28) 0.25-35 MG-MCG tablet Take 1 tablet by mouth daily. 28 tablet 12 06/30/2023 Active Comment on above: Take by mouth. fluconazole 150 mg oral tablet (5 sources) Azole Antifungal Start: 04-30-2024 End: 04-30-2024 take 1 tablet by mouth once fluconazole (DIFLUCAN) 150 mg tablet Take 1 tablet by mouth one time only for 1 dose. 1 tablet 04/30/2024 04/30/2024 Active Start: 08-11-2023 End: 04-30-2024 fluconazole (DIFLUCAN) 150 m g tablet Indications: vulvovaginal candidiasis Take one by mouth at the first sign of a yeast infection, repeat with another tablet in 3 days 2 tablet 08/11/2023 04/30/2024 Discontinued (Other) Start: 03-25-2023 End: 07-10-2023 fluconazole (DIFLUCAN) 150 m g tablet take 1 tab now and then take another in 3 days and then another 3 days after that. (day 1, 4, and 7) 0 03/25/2023 07/10/2023 Discontinued (Other) Comment on above: take 1 tab now and t hen take another in 3 days and then another 3 days after that. (day 1, 4, and 7) ibuprofen 600 mg oral tablet (2 sources) Nonsteroidal Anti-inflammatory Drug Start: 2024 End: 2024 take 1 tablet by mouth every eight hours as needed for pain ibuprofen 600 MG tablet Take 1 tablet (600 mg) by mouth every 8 hours as needed for mild pain (1-3) for up to 7 days. 21 tablet 06/12/2024 06/19/2024 Active levoFLOXacin 500 mg oral tablet (2 sources) Quinolone Antimicrobial Start: 2024 End: 2024 take 1 tablet by mouth once daily levoFLOXacin (LEVAQUIN) 500 mg tablet Indications: Non-recurrent acute suppurative otitis media of left ear without spontaneous rupture of tympanic membrane Take 1 tablet by mouth once daily for 5 days. 5 tablet 08/15/2024 08/20/2024 Active methylPREDNISolone 4 mg oral tablet (2 sources) Corticosteroid Start: 2022 take 1 tablet by mouth once Methylprednisolone (Medrol (Landry)) 4 mg tablets,dose pack Active 0 PO per package directions December 06, 2022 12:00am PO PER PKG DIR metroNIDAZOLE 0.0075 mg/mg vaginal gel (4 sources) Nitroimidazole Antimicrobial Start: 2024 End: 2024 metroNIDAZOLE (METROGEL) 0.75 % (37.5mg/5 gram) Vaginal Gel Use 1 Applicatorful vaginally daily at bedtime for 5 days. 75 g 04/30/2024 05/05/2024 Active Start: 07-12-2021 End: 07-19-2021 take 1 tablet by mouth twice daily metroNIDAZOLE (FLAGYL) 500 mg tablet Indications: BV (bacterial vaginosis) Take 1 tablet by mouth twice daily for 7 days. Do not drink alcohol during treatment and for 48 hours after final dose 14 tablet 0 07/12/2021 07/19/2021 Active Comment on above: Take 1 tablet by dewey th twice daily for 7 days. Do not drink alcohol during treatment and for 48 hours after final dose predniSONE 50 mg oral tablet (1 source) Start: 11-02-2022 End: 11-06-2022 take 1 tablet by mouth once daily predniSONE (DELTASONE) 50 mg Take 1 tablet by mouth once daily for 4 days. 4 tablet 0 11/02/2022 11/06/2022 Active Comment on above: Take 1 tablet by dewey th once daily for 4 days. Vitamin w/ Iron (PNV NO. 72, W/ IRON,) 27 mg iron- 1 mg (20 sources) Start: 07-08-2024 take 1 tablet by mouth once daily Vitamin w/ Iron (PNV NO. 72, W/ IRON,) 27 mg iron- 1 mg Take 1 tablet by mouth once daily. 30 tablet 2 07/08/2024 Active Start: 07-08-2024 End: 10-06-2024 take 1 tablet by mouth once daily Vitamin w/ Iron (PNV NO. 72, W/ IRON,) 27 mg iron- 1 mg Take 1 tablet by mouth once daily. 30 tablet 2 07/08/2024 10/06/2024 Active vitamin, iron-folic , 27 mg iron-800 mcg folic acid tablet (2 sources) take 1 tablet by dewey th once daily vitamin, iron-folic, 27 mg iron-800 mcg folic acid tablet Take 1 tablet by mouth once daily. Active Completed/Discontinued Medications Medication Drug Class(es) Dates Sig (Normalized) Sig (Original) Albuterol (1 source) beta2-Adrenergic Agonist End: 07-12-2021 ALBUTEROL INHALATION Inhale as instructed. 0 07/12/2021 Discontinued (Course of therapy completed) Comment on above: Inhale as instructed . benzonatate 100 mg oral capsule (4 sources) Non-narcotic Antitussive Start: 06-12-2024 End: 06-12-2024 take 200 mg by mouth once 200 mg, Oral, Once, On Mon06/12/24 at 1555, For 1 dose, Do not crush or chew. Start: 06-12-2024 End: 06-19-2024 take 1 capsule by mouth three times daily as needed for cough benzonatate (Tessalon) 200 MG capsule Take 1 capsule (200 mg) by mouth 3 times daily as needed for cough for up to 7 days. Do not crush or chew. 21 capsule 06/12/2024 06/19/2024 Active boric acid vaginal supposito ry 600 mg (CPD) (5 sources) Start: 07-12-2021 End: 08-09-2021 boric acid vaginal supposito ry 600 mg (CPD) Indications: Bacterial vaginosis Use 1 Suppository vaginally three times a week. Unwrap and insert as directed. 12 Suppository 2 07/12/2021 08/09/2021 Discontinued (Availability) Start: 07-12-2021 boric acid vag inal suppository 600 mg (CPD) Indications: Bacterial vaginosis Use 1 Suppository vaginally three times a week. Unwrap and insert as directed. 12 Suppository 2 07/12/2021 Active Comment on above: Use 1 Suppository va ginally three times a week. Unwrap and insert as directed. dexamethasone 4 mg oral tablet (2 sources) Corticosteroid Start: 02-19-20 End: 12-07-19 take 1 tablet by mouth once daily Dexamethasone 4 mg tablet Discontinued 4 mg PO DAILY February 18, 2021 1:00am December 06, 2022 2:39pm enteric contrast (will be provided with radiology test) (2 sources) Start: 07-10-19 End: 07-11-19 enteric contrast (will be provided with radiology test) For CT ABD/PEL W IVCON Routine order Administer, As Directed One Time Only, via Oral, Rectal, both Oral and Rectal, Enteric Tube, Stoma or Indwelling Catheter, Enteric Contrast as designated per enteric contrast guidelines 1 Each 0 07/10/2023 07/11/2023 Start: 07-10-2023 End: 07-11-2023 enteric contrast (will be pr ovided with radiology test) For CT ABD/PEL W IVCON Routine order Administer, As Directed One Time Only, via Oral, Rectal, both Oral and Rectal, Enteric Tube, Stoma or Indwelling Catheter, Enteric Contrast as designated per enteric contrast guidelines 1 Each 0 07/10/2023 07/11/2023 Active Comment on above: For CT ABD/PEL W IVC ON Routine order Administer, As Directed One Time Only, via Oral, Rectal, both Oral and Rectal, Enteric Tube, Stoma or Indwelling Catheter, Enteric Contrast as designated per enteric contrast guidelines gabapentin 300 mg oral capsule (5 sources) Anti-epileptic Agent End: 07-10-2023 gabapentin (NEURONTIN) 300 mg capsule Take 300 mg by mouth as needed. Erik Reddic 0 07/10/2023 Discontinued (Other) Comment on above: Take 300 mg by mouth as needed. Erik Foy iv contrast (will be provided with radiology test) (2 sources) Start: 07-10-2023 End: 07-11-2023 iv contrast (will be provided with radiology test) CT ABD/PEL -Inject, intravenously, once for 1 dose.No IV access, insert saline lock prior to the beginning of sedation, infusion, injection of imaging exam. Discontinue saline lock post exam. If Pt. has a central line or IVAD, may access for administration according to line specific nursing protocol. Once exam is complete flush line and de-access according to line specific nursing protocol in the CT contrast administration guidelines link. 1 Each 0 07/10/2023 07/11/2023 Start: 07-10-2023 End: 07-11-2023 iv contrast (will be provide d with radiology test) CT ABD/PEL -Inject, intravenously, once for 1 dose.No IV access, insert saline lock prior to the beginning of sedation, infusion, injection of imaging exam. Discontinue saline lock post exam. If Pt. has a central line or IVAD, may access for administration according to line specific nursing protocol. Once exam is complete flush line and de-access according to line specific nursing protocol in the CT contrast administration guidelines link. 1 Each 0 07/10/2023 07/11/2023 Active Comment on above: CT ABD/PEL -Inject, intravenously, once for 1 dose.No IV access, insert saline lock prior to the beginning of sedation, infusion, injection of imaging exam. Discontinue saline lock post exam. If Pt. has a central line or IVAD, may access for administration according to line specific nursing protocol. Once exam is complete flush line and de-access according to line specific nursing protocol in the CT contrast administration guidelines link. 1 ml ketorolac tromethamine 15 mg/ml cartridge (2 sources) Nonsteroidal Anti-inflammatory Drug, Cyclooxygenase Inhibitor Start: 06-12-2024 End: 06-12-2024 15 mg, IntraVENous, Once, On Mon06/12/24 at 1555, For 1 dose Problems Active Problems Problem Classification Problem Date Documented Da te Episodic/Chronic Anxiety disorders (20 sources) Mixed anxiety and depressive disorder; Translations: [Other specified anxiety disorders] Onset: 08-01-2024 08-01-2024 Chronic Diabetes mellitus without complication (2 sources) Prediabetes; Translations: [Prediabetes] 08-11-2023 Episodic Diseases of white blood cells (1 source) Leukocytosis; Translations: [Elevated white blood cell count, unspecified] Chronic Gastrointestinal hemorrhage (1 source) Rectal hemorrhage; Translations: [Hemorrhage of anus and rectum] 07-10-2023 Episodic Genitourinary symptoms and ill-defined conditions (3 sources) Proteinuria; Translations: [Proteinuria, unspecified] Onset: 11-28-2024 08-14-2023 Episodic Headache; including migraine (1 source) Headache; including migraine; Translations: [ headache in third trimester (HCC)] Onset: 01-10-2025 Hemorrhage during ; abruptio placenta; placenta previa (2 sources) Antepartum hemorrhage; Translations: [Hemorrhage in early , unspecified] Onset: 09-04-2024 07-15-2024 Episodic Immunizations and screening for infectious disease (10 sources) Exposure to Hepatitis C virus; Translations: [Contact with and (suspected) exposure to viral hepatitis] Onset: 08-01-2024 Episodic Malaise and fatigue (1 source) Fatigue; Translations: [Other fatigue] 01-01-2025 Episodic Mood disorders (1 source) Mood disorders; Translations: [Depression, unspecified depression type] Onset: 02-17-2025 Other circulatory disease (1 source) Elevated blood-pressure reading, without diagnosis of hypertension; Translations: [Elevated blood pressure reading without diagnosis of hypertension] Onset: 01-24-2025 Episodic Other complications of (1 source) Anemia complicating , third trimester; Translations: [Anemia complicating , third trimester (HCC)] Onset: 12-30-2024 Chronic Other complications of (20 sources) High risk ; Translations: [Supervision of high risk , unspecified, first trimester] Onset: 08-01-2024 08-01-2024 Episodic Other complications of (2 sources) Uterine contractions problem; Translations: [Other specified related conditions, unspecified trimester] 08-22-2024 Episodic Other complications of (11 sources) RhD negative; Translations: [Other specified related conditions, unspecified trimester] Onset: 09-12-2024 09-12-2024 Episodic Other complications of (1 source) Reduced movement; Translations: [Decreased movements, second trimester, not applicable or unspecified] 12-04-2024 Episodic Other complications of (1 source) Decreased movements, third trimester, not applicable or unspecified; Translations: [Decreased movements in third trimester, single or unspecified fetus ([facility])] Onset: 01-24-2025 Episodic Other complications of (1 source) Supervision of high risk , unspecified, third trimester; Translations: [Supervision of high risk in third trimester ([facility])] Onset: 02-03-2025 Episodic Other complications of (1 source) Other specified related conditions, third trimester; Translations: [ headache in third trimester ([facility])] Onset: 01-10-2025 Episodic Other complications of (1 source) Decreased movements, second trimester, not applicable or unspecified; Translations: [Decreased movements in second trimester, single or unspecified fetus ([facility])] Onset: 12-04-2024 Episodic Other connective tissue disease (1 source) Pain in left arm; Translations: [Pain in left arm] 12-23-2024 Episodic Other female genital disorders (1 source) Pain in female genitalia on intercourse; Translations: [Unspecified dyspareunia] 07-10-2023 Chronic Other female genital disorders (2 sources) Vaginal bleeding; Translations: [Abnormal uterine and vaginal bleeding, unspecified] 08-22-2024 Chronic Other female genital disorders (1 source) Abnormal uterine and vaginal bleeding, unspecified; Translations: [Vaginal spotting] Onset: 09-05-2024 Chronic Other female genital disorders (1 source) Pruritus of vagina; Translations: [Other specified noninflammatory disorders of vagina] 08-11-2023 Episodic Other female genital disorders (1 source) Vaginal irritation; Translations: [Other specified noninflammatory disorders of vagina] 04-30-2024 Episodic Other lower respiratory disease (3 sources) Cough; Translations: [Cough] 11-24-2020 Episodic Other lower respiratory disease (2 sources) Pleuritic pain; Translations: [Pleurodynia] 06-12-2024 Episodic Other lower respiratory disease (2 sources) Cough; Translations: [Acute cough] 06-12-2024 Episodic Other lower respiratory disease (2 sources) Pleurodynia; Translations: [Pleurodynia] Onset: 06-12-2024 Episodic Other nutritional; endocrine; and metabolic disorders (20 sources) Obese class I; Translations: [Obesity, unspecified] Onset: 07-12-2021 Chronic Other screening for suspected conditions (not mental disorders or infectious disease) (10 sources) Cancer cervix screening status; Translations: [Encounter for screening for malignant neoplasm of cervix] Onset: 04-30-2024 Episodic Other upper respiratory disease (2 sources) Respiratory tract congestion; Translations: [Nasal congestion] 02-18-2021 Episodic Ovarian cyst (1 source) Cyst of left ovary; Translations: [Unspecified ovarian cyst, left side] 11-15-2022 Episodic Personality disorders (1 source) Personality disorder, unspecified; Translations: [Personality disorder (HCC)] Onset: 02-17-2025 Chronic Residual codes; unclassified (1 source) Family history of malignant neoplasm of ovary; Translations: [Family history of malignant neoplasm of ovary] 11-15-2022 Episodic Residual codes; unclassified (2 sources) Suspected clinical finding; Translations: [Contact with and (suspected) exposure to other hazardous, chiefly nonmedicinal, chemicals] 05-17-2017 Episodic Residual codes; unclassified (1 source) Gestation period, 4 weeks; Translations: [Less than 8 weeks gestation of ] 07-10-2024 Episodic Residual codes; unclassified (1 source) Gestation period, 10 weeks; Translations: [10 weeks gestation of ] 08-22-2024 Episodic Residual codes; unclassified (1 source) Gestation period, 12 weeks; Translations: [12 weeks gestation of ] 09-05-2024 Episodic Residual codes; unclassified (2 sources) Gestation period, 13 weeks; Translations: [13 weeks gestation of ] 09-11-2024 Episodic Residual codes; unclassified (1 source) Gestation period, 16 weeks; Translations: [16 weeks gestation of ] 10-03-2024 Episodic Residual codes; unclassified (1 source) Gestation period, 20 weeks; Translations: [20 weeks gestation of ] 10-31-2024 Episodic Residual codes; unclassified (1 source) Gestation period, 24 weeks; Translations: [24 weeks gestation of ] 11-28-2024 Episodic Residual codes; unclassified (1 source) Gestation period, 25 weeks; Translations: [25 weeks gestation of ] 12-04-2024 Episodic Residual codes; unclassified (1 source) 33 weeks gestation of ; Translations: [33 weeks gestation of (HCC)] Onset: 01-24-2025 Episodic Residual codes; unclassified (1 source) 36 weeks gestation of ; Translations: [36 weeks gestation of (HCC)] Onset: 02-17-2025 Episodic Residual codes; unclassified (1 source) 34 weeks gestation of ; Translations: [34 weeks gestation of (HCC)] Onset: 02-03-2025 Episodic Residual codes; unclassified (1 source) 32 weeks gestation of ; Translations: [32 weeks gestation of (HCC)] Onset: 01-20-2025 Episodic Residual codes; unclassified (1 source) 30 weeks gestation of ; Translations: [30 weeks gestation of (HCC)] Onset: 01-10-2025 Episodic Residual codes; unclassified (1 source) 24 weeks gestation of ; Translations: [24 weeks gestation of ([facility])] Onset: 12-27-2024 Episodic Residual codes; unclassified (1 source) 28 weeks gestation of ; Translations: [28 weeks gestation of ([facility])] Onset: 12-27-2024 Episodic Residual codes; unclassified (1 source) 25 weeks gestation of ; Translations: [25 weeks gestation of ([facility])] Onset: 12-04-2024 Episodic Unclassified (1 source) Acute cough; Translations: [Acute cough] Onset: 06-12-2024 Unclassified (20 sources) [facility] - [facility]ON Onset: 08-01-2024 08-01-2024 Unclassified (20 sources) Education - [place] Onset: 08-01-2024 08-01-2024 Unclassified (1 source) Other specified diseases and conditions complicating ; Translations: [Other specified diseases and conditions complicating ] Onset: 07-19-2024 Unclassified (1 source) Vaginal candidiasis; Translations: [Vaginal candidiasis] Onset: 04-30-2024 Viral infection (2 sources) Disease caused by 2019-nCoV; Translations: [COVID-19] 02-18-2021 Episodic Past or Other Problems Problem Classification Problem Date Documented Date Episodic/Chronic Abdominal pain (16 sources) Pain in female pelvis; Translations: [Pelvic and perineal pain] Onset: 06-30-2023 10-25-2022 Episodic Allergic reactions (20 sources) Allergy to penicillin; Translations: [Allergy status to penicillin] Onset: 08-01-2024 08-01-2024 Episodic Bacterial infection; unspecified site (1 source) Other specified bacterial agents as the cause of diseases classified elsewhere; Translations: [Bacterial vaginosis] Onset: 07-12-2021 Episodic Conditions associated with dizziness or vertigo (2 sources) Lightheadedness; Translations: [Dizziness and giddiness] Onset: 04-30-2024 04-30-2024 Episodic E Codes: Fall (20 sources) Fall; Translations: [Unspecified fall, initial encounter] Onset: 08-01-2024 08-01-2024 Episodic Inflammatory diseases of female pelvic organs (20 sources) Bacterial vaginosis; Translations: [Acute vaginitis] Onset: 07-12-2021 Episodic Other complications of (20 sources) Smoking (tobacco) complicating , unspecified trimester; Translations: [Tobacco use disorder complicating , childbirth, or the puerperium, unspecified as to episode of care or not applicable] Onset: 08-01-2024 08-01-2024 Episodic Other complications of (20 sources) Vomiting of , unspecified; Translations: [Unspecified vomiting of , unspecified as to episode of care or not applicable] Onset: 08-01-2024 08-01-2024 Episodic Other complications of (1 source) Other specified related conditions, first trimester; Translations: [Abdominal pain during in first trimester ([facility])] Onset: 09-03-2024 Episodic Other complications of (1 source) Supervision of high risk , unspecified, second trimester; Translations: [Encounter for supervision of high risk in second trimester, antepartum ([facility])] Onset: 09-11-2024 Episodic Other complications of (1 source) Supervision of high risk , unspecified, first trimester; Translations: [Encounter for supervision of high risk in first trimester, antepartum ([facility])] Onset: 09-11-2024 Episodic Other complications of (1 source) Other specified related conditions, unspecified trimester; Translations: [Cramping affecting , antepartum ([facility])] Onset: 09-05-2024 Episodic Other female genital disorders (20 sources) Vaginal discharge; Translations: [Other specified noninflammatory disorders of vagina] Onset: 08-01-2024 Episodic Other female genital disorders (1 source) Other specified noninflammatory disorders of vagina; Translations: [Vaginal discharge] Onset: 08-02-2024 Episodic Other and delivery including normal (4 sources) First trimester ; Translations: [Encounter for supervision of normal , unspecified, first trimester] Onset: 08-01-2024 07-15-2024 Episodic Other upper respiratory infections (9 sources) Acute upper respiratory infection; Translations: [Acute upper respiratory infection, unspecified] Onset: 09-03-2024 11-24-2020 Episodic Otitis media and related conditions (2 sources) Acute suppurative otitis media without spontaneous rupture of ear drum; Translations: [Acute suppurative otitis media without spontaneous rupture of ear drum, left ear] Onset: 08-15-2024 08-15-2024 Episodic Pancreatic disorders (not diabetes) (7 sources) Mass of pancreas; Translations: [Other specified diseases of pancreas] Onset: 11-05-2018 01-20-2022 Episodic Residual codes; unclassified (1 source) 20 weeks gestation of ; Translations: [20 weeks gestation of ([facility])] Onset: 10-31-2024 Episodic Residual codes; unclassified (1 source) 16 weeks gestation of ; Translations: [16 weeks gestation of (HCC)] Onset: 10-03-2024 Episodic Residual codes; unclassified (1 source) 13 weeks gestation of ; Translations: [13 weeks gestation of (HCC)] Onset: 09-11-2024 Episodic Residual codes; unclassified (1 source) 12 weeks gestation of ; Translations: [12 weeks gestation of ([facility])] Onset: 09-05-2024 Episodic Residual codes; unclassified (1 source) Less than 8 weeks gestation of ; Translations: [7 weeks gestation of (HCC)] Onset: 08-01-2024 Episodic Unclassified (1 source) Acute cough; Translations: [Acute cough] Onset: 06-12-2024 NEGATED: Highlighted row has been ruled out!Unclassified (1 source) No known active problems 01-01-2025 Results Test Name Value Interpretation Reference Range Facility ROUTINE, GROUP B ST REPTOCOCCUS BY PCRon 02-17-2025 ROUTINE, GROUP B STREPTOCOCCUS BY PCR Not detected Normal [facility] Comment on above: Performed By: #### G BPCR ####[facility] [id number] [place] [address] [place] CBC panel Auto (Bld)on 01-24 Erythrocyte distribution width (RBC) [Ratio] 12.5 % Normal 11.5-15.0 [facility] Comment on above: Order Comment: Mich martinez Type: BLOOD SPECIMEN Ordering Facility: [facility] Address: [address] [place] [address] Performed By: #### 5 8410-2 #### [facility] CLIA [id number] [address] [place] [address] [place] Hematocrit (Bld) [Volume fraction] 30.4 % Low 36.0-46.0 [facility] Comment on above: Order Comment: Mich martinez Type: BLOOD SPECIMEN Ordering Facility: [facility] Address: [address] [place] [address] Performed By: #### 5 8410-2 #### [facility] CLIA [id number] [address] [place] [address] [place] Hemoglobin (Bld) [Mass/Vol] 10.7 g/dL Low 11.5-15.5 [facility] Comment on above: Order Comment: Speci men Type: BLOOD SPECIMEN Ordering Facility: [facility] Address: [address] [place] [address] Performed By: #### 5 8410-2 #### [facility] CLIA [id number] [address] MCH (RBC) [Entitic mass] 33.6 pg Normal 26.0-34.0 [facility] Comment on above: Order Comment: Speci men Type: BLOOD SPECIMEN Ordering Facility: [facility] Address: [address] [place] [address] Performed By: #### 5 8410-2 #### [facility] CLIA [id number] [address] MCHC (RBC) [Mass/Vol] 35.2 g/dL Normal 30.5-36.0 [facility] Comment on above: Order Comment: Speci men Type: BLOOD SPECIMEN Ordering Facility: [facility] Address: [address] [place] [address] Performed By: #### 5 8410-2 #### [facility] CLIA [id number] [address] MCV (RBC) [Entitic vol] 95.6 fL Normal 80.0-100.0 [facility] Comment on above: Order Comment: Speci men Type: BLOOD SPECIMEN Ordering Facility: [facility] Address: [address] [place] [address] Performed By: #### 5 8410-2 #### [facility] CLIA [id number] [address] Nucleated RBC (Bld) [#/Vol] 10*3/uL Normal <0.01 [facility] Comment on above: Order Comment: Speci men Type: BLOOD SPECIMEN Ordering Facility: [facility] Address: [address] [place] [address] Performed By: #### 5 8410-2 #### [facility] CLIA [id number] [address] [place] Platelet mean volume (Bld) [Entitic vol] 10.7 fL Normal 9.0-12.7 [facility] Comment on above: Order Comment: Speci men Type: BLOOD SPECIMEN Ordering Facility: [facility] Address: [address] [place] [address] Performed By: #### 5 8410-2 #### [facility] CLIA [id number] [address] [place] Platelets (Bld) [#/Vol] 210 10*3/uL Normal 150-400 [facility] Comment on above: Order Comment: Speci men Type: BLOOD SPECIMEN Ordering Facility: [facility] Address: [address] [place] [address] Performed By: #### 5 8410-2 #### [facility] CLIA [id number] [address] RBC (Bld) [#/Vol] 3.18 10*6/uL Low 3.90-5.20 [facility] Comment on above: Order Comment: Speci men Type: BLOOD SPECIMEN Ordering Facility: [facility] Address: [address] [place] [address] Performed By: #### 5 8410-2 #### [facility] CLIA [id number] [address] [place] WBC (Bld) [#/Vol] 10.41 10*3/uL Normal 3.70-11.00 [facility] Comment on above: Order Comment: Speci men Type: BLOOD SPECIMEN Ordering Facility: [facility] Address: [address] [place] [address] Performed By: #### 5 8410-2 #### [facility] CLIA [id number] [address] OF [facility] Ricardo 01-24-2025 ARSH Telephone (OBGYWM) ---- GABE HUBBARD ([id number]) 1995 F ONOFRE Date Time Provider Department 01/24/25 [facility]N VILLALPANDO During your visit today, we recorded the following information about you: Breanna Gillette RN 01/24/2025 3:52 PM Signed S: Last movement around 11-11:30am. For past few days, have had water colored black squiggly lines in vision -checked BP 132/87. Reports trouble breathing-states noticed this past few days/will be sitting on the couch and feels like she ran a marathon States baby is usually pretty active B: 32w6d. A: Tried eating (milkshake/chicken sandwich, apple), poking stomach/lifting stomach. Denies headache/denies increase in swelling/denies RUQ abdominal pain R: Spoke to Brooklyn Villalpando APRN, CNM and Pt is advised to go to [facility] OB ED. Pt voiced understanding. Breanna Gillette RN Allergies As of Date: 01/24/2025 Noted Allergy Reaction AMOXICILLIN 07/21/2014 7 - Swelling PENICILLINS 07/21/2014 7 - Swelling Date Reviewed: 01/20/2025 Reviewed by: Ashlyn Vasques MA - Fully Assessed Prescriptions as of 01/24/2025 - famotidine (PEPCID) 20 mg tablet Take 1 tablet by mouth two times a day. - aspirin, enteric coated (ECOTRIN LOW STRENGTH) 81 mg EC tablet Take 1 tablet by mouth once daily. - Vitamin w/ Iron (PNV NO. 72, W/ IRON,) 27 mg iron- 1 mg Take 1 tablet by mouth once daily. Meds Comments as of 12/14/2015: Pt states she takes control pill, unable to recall which one Problem List As Of Date 01/24/2025 Noted Resolved Use of nicotine during (HCC) [O99.330]08/01/2024 Vaginal discharge [N89.8] 08/01/2024 Depression with anxiety [F41.8] 08/01/2024 Nausea and vomiting during ([facility]) [O21*08/01/2024 Fall [W19.XXXA] 08/01/2024 Penicillin allergy [Z88.0] 08/01/2024 Rh negative state in antepartum period ([facility]) [O*09/12/2024 Anemia complicating , third trimester *12/30/2024 Encounter Status:Closed by BREANNA GILLETTE on 01/24/25 Normal [facility] metabolic 2000 panelon 01-24-2025 Albumin [Mass/Vol] 3.4 g/dL Low 3.9-4.9 [facility] Comment on above: Order Comment: Speci men Type: URINE SPECIMEN Ordering Facility: [facility] Address: [address] [place] [address] Performed By: #### 2 4356-8 #### [facility] CLIA [id number] [address] [place] [address] [place] ALP [Catalytic activity/Vol] 107 U/L Normal 34-123 [facility] Comment on above: Order Comment: Speci men Type: URINE SPECIMEN Ordering Facility: [facility] Address: [address] [place] [address] Performed By: #### 2 4356-8 #### [facility] CLIA [id number] [address] [place] [address] [place] ALT With P-5'-P [Catalytic activity/Vol] 10 U/L Normal 7-38 [facility] Comment on above: Order Comment: Speci men Type: URINE SPECIMEN Ordering Facility: [facility] Address: [address] [place] [place] [address] Performed By: #### 2 4356-8 #### [facility] CLIA [id number] [address] [place] [address] [place] [facility] Anion gap [Moles/Vol] 9 mmol/L Normal 8-15 [facility] Comment on above: Order Comment: Speci men Type: URINE SPECIMEN Ordering Facility: [facility] Address: [address] [place], [place] [address] Performed By: #### 2 4356-8 #### [facility] CLIA [id number] [address] [place] [address] [place] AST With P-5'-P [Catalytic activity/Vol] 15 U/L Normal 13-35 [facility] Comment on above: Order Comment: Speci men Type: URINE SPECIMEN Ordering Facility: [facility] Address: [address] [place] [address] Performed By: #### 2 4356-8 #### [facility] CLIA [id number] [address] [place] [address] [place] Bilirubin [Mass/Vol] 0.4 mg/dL Normal 0.2-1.3 [facility] Comment on above: Order Comment: Speci men Type: URINE SPECIMEN Ordering Facility: [facility] Address: [address] [place] [address] Performed By: #### 2 4356-8 #### [facility] CLIA [id number] [address] [place] [address] [place] Calcium [Mass/Vol] 8.4 mg/dL Low 8.5-10.2 [facility] Comment on above: Order Comment: Speci men Type: URINE SPECIMEN Ordering Facility: [facility] Address: [address] [place] [address] Performed By: #### 2 4356-8 #### [facility] CLIA [id number] [address] [place] [address] [place] Chloride [Moles/Vol] 105 mmol/L Normal 98-107 [facility] Comment on above: Order Comment: Speci men Type: URINE SPECIMEN Ordering Facility: [facility] Address: [address] [place] [address] Performed By: #### 2 4356-8 #### [facility] CLIA [id number] [address] [place] [address] [place] CO2 [Moles/Vol] 23 mmol/L Normal 22-30 [facility] Comment on above: Order Comment: Speci men Type: URINE SPECIMEN Ordering Facility: [facility] Address: [address] [place] [address] Performed By: #### 2 4356-8 #### [facility] CLIA [id number] [address] [place] [address] [place] Creatinine [Mass/Vol] 0.55 mg/dL Low 0.58-0.96 [facility] Comment on above: Order Comment: Speci men Type: URINE SPECIMEN Ordering Facility: [facility] Address: [address] [place] [address] Performed By: #### 2 4356-8 #### [facility] CLIA [id number] [address] [place] [address] [place] eGFRcr SerPlBld CKD-EPI 2020 129 mL/min/1.73m??? Normal >=60 [facility] Comment on above: Order Comment: Speci men Type: URINE SPECIMEN Ordering Facility: [facility] Address: [address] [place] [address] Result Comment: Beth mated Glomerular Filtration Rate (eGFR) is calculated using the 2020 CKD-EPI creatinine equation. This equation utilizes serum creatinine, sex, and age as parameters. The creatinine assay has traceable calibration to isotope dilution-mass spectrometry. Refer to KDIGO guidelines for clinical interpretation. In patients with unstable renal function, e.g. those with acute kidney injury, the eGFR may not accurately reflect actual GFR. Performed By: #### 2 4356-8 #### [facility] CLIA [id number] [address] [place] [address] [place] Glucose [Mass/Vol] 107 mg/dL High 74-99 [facility] Comment on above: Order Comment: Sharrondiandra martinez Type: URINE SPECIMEN Ordering Facility: [facility] Address: [address] [place] [address] Result Comment: The [place] Diabetes Association (ADA) provides guidance for cutoff values for fasting glucose and random glucose. The ADA defines fasting as no caloric intake for at least 8 hours. Fasting plasma glucose results between 100 to 125 mg/dL indicate increased risk for diabetes (prediabetes). Fasting plasma glucose results greater than or equal to 126 mg/dL meet the criteria for diagnosis of diabetes. In the absence of unequivocal hyperglycemia, results should be confirmed by repeat testing. In a patient with classic symptoms of hyperglycemia or hyperglycemic crisis, random plasma glucose results greater than or equal to 200 mg/dL meet the criteria for diagnosis of diabetes. Reference: Standards of Medical Care in Diabetes 2016, [place] [employer] Association. Diabetes Care. 2016.39(Suppl 1). Performed By: #### 2 4356-8 #### [facility] CLIA [id number] [address] [place] [address] [place] Potassium [Moles/Vol] 3.6 mmol/L Low 3.7-5.1 [facility] Comment on above: Order Comment: Speci men Type: URINE SPECIMEN Ordering Facility: [facility] Address: [address] [place] [address] Performed By: #### 2 4356-8 #### [facility] CLIA [id number] [address] [place] [address] [place] Protein [Mass/Vol] 6.5 g/dL Normal 6.3-8.0 [facility] Comment on above: Order Comment: Speci men Type: URINE SPECIMEN Ordering Facility: [facility] Address: [address] [place] [address] Performed By: #### 2 4356-8 #### [facility] CLIA [id number] [address] [place] [address] [place] Sodium [Moles/Vol] 137 mmol/L Normal 136-144 [facility] Comment on above: Order Comment: Speci men Type: URINE SPECIMEN Ordering Facility: [facility] Address: [address] [place] [address] Performed By: #### 2 4356-8 #### [facility] CLIA [id number] [address] [place] [address] [place] Urea nitrogen [Mass/Vol] 9 mg/dL Normal 7-21 [facility] Comment on above: Order Comment: Speci men Type: URINE SPECIMEN Ordering Facility: [facility] Address: [address] [place], [place] [address] Performed By: #### 2 4356-8 #### [facility] CLIA [id number] [address] [place] [address] [facility] ED Triage Noteon 01-24-2025 ED Triage Note HNO ID: [id number] Author: ARISTEO CISNEROS APRN.CNP Service: Emergency Medicine Author Type: Nurse Practitioner Type: ED Triage Notes Filed: 01/24/2025 17:40 Note Text: ED TRIAGE PROVIDER NOTE Patient Name: Gabe Hubbard Service Date: 01/24/25 BRIEF HPI: The patient is a 29-year-old primigravida who presents to the emergency department for evaluation of multiple complaints. She states that she is about 33 weeks . She reports that she started noticing elevated blood pressure readings today. She also noticed decreased movement. No formal diagnosis of hypertension and no reported complications during this . No abdominal pain, nausea, vomiting or new concerning vaginal bleeding/leakage. BRIEF EXAM: NAD Awake and Alert Non labored breathing PA and ED findings were discussed with our OB attending who accepted the patient for OB triage for further evaluation and definitive care. INITIAL WORKUP AND DECISION MAKING: Orders Placed This Encounter No orders of the defined types were placed in this encounter. SIGNATURE: Aristeo Luna APRN.GARETH Normal [facility] Prot/Creat Uron 01-24-2025 Protein/Creatinine (U) [Mass ratio] 0.12 mg/mg Normal <0.15 [facility] Comment on above: Order Comment: Speci men Type: BLOOD SPECIMEN [facility] Facility: [facility] Address: [address] [place], [place] [address] Result Comment: Adul t Proteinuria Categories: <0.15 mg/mg is considered normal to mildly increased 0.15 - 0.50 mg/mg is considered moderately increased >0.50 mg/mg is considered severely increased KDIGO. (2013). KDIGO 2012 Clinical Practice Guideline for the Evaluation and Management of Chronic Kidney Disease. Official Journal of the International Society of Nephrology, 3(1), 1-150. Performed By: #### 5 8410-2 #### [facility] CLIA [id number] [address] [place] [address] [place] Protein/Creatinine (U) [Mass ratio]on 01-24-2025 Creatinine (U) [Mass/Vol] 102.6 mg/dL Normal 42.2-237.9 [facility] Comment on above: Order Comment: Speci men Type: BLOOD SPECIMEN Order[facility] Facility: [facility] Address: [address] [place] [address] Performed By: #### 5 8410-2 #### [facility] CLIA [id number] [address] [place] [address] [place] Protein (U) [Mass/Vol] 12 mg/dL Normal 0-20 [facility] Comment on above: Order Comment: Speci men Type: BLOOD SPECIMEN [facility] Facility: [facility] Address: [address] [place] [address] Performed By: #### 5 8410-2 #### [facility] CLIA [id number] [address] [place] [id number] [place] CBC panel Auto (Bld)on 01-10 Erythrocyte distribution width (RBC) [Ratio] 12.9 % Normal 11.5-15.0 [facility] Comment on above: Order Comment: Speci men Type: BLOOD SPECIMENOrdering Facility: [facility] Address: [address] [place] [address] Performed By: #### 5 8410-2 ####[facility] [id number] [place] [address] [place] Hematocrit (Bld) [Volume fraction] 31.2 % Low 36.0-46.0 [facility] Comment on above: Order Comment: Speci men Type: BLOOD SPECIMENOrdering Facility: [facility] Address: [address] [place] [address] Performed By: #### 5 8410-2 ####[facility] [id number] [place] [address] [place] Hemoglobin (Bld) [Mass/Vol] 10.9 g/dL Low 11.5-15.5 [facility] Comment on above: Order Comment: Speci men Type: BLOOD SPECIMENOrdering Facility: [facility] Address: [address] [place] [address] Performed By: #### 5 8410-2 ####[facility] [id number] [place] [address] [place] MCH (RBC) [Entitic mass] 33.0 pg Normal 26.0-34.0 [facility] Comment on above: Order Comment: Speci men Type: BLOOD SPECIMENOrdering Facility: [facility] Address: [address] [place] [address] Performed By: #### 5 8410-2 ####[facility] [id number] [address] [place] MCHC (RBC) [Mass/Vol] 34.9 g/dL Normal 30.5-36.0 [facility] Comment on above: Order Comment: Speci men Type: BLOOD SPECIMENOrdering Facility: [facility] Address: [address] [place] [address] Performed By: #### 5 8410-2 ####[facility] [id number] [place] [address] [place] MCV (RBC) [Entitic vol] 94.5 fL Normal 80.0-100.0 [facility] Comment on above: Order Comment: Speci men Type: BLOOD SPECIMENOrdering Facility: [facility] Address: [address] [place] [address] Performed By: #### 5 8410-2 ####[facility] [id number] [place] [address] [place] Nucleated RBC (Bld) [#/Vol] 10*3/uL Normal <0.01 [facility] Comment on above: Order Comment: Speci men Type: BLOOD SPECIMENOrdering Facility: [facility] Address: [address] [place] [address] Performed By: #### 5 8410-2 ####[facility] [id number] [place] [address] [place] Platelet mean volume (Bld) [Entitic vol] 10.4 fL Normal 9.0-12.7 [facility] Comment on above: Order Comment: Speci men Type: BLOOD SPECIMENOrdering Facility: [facility] Address: [address] [place] [address] Performed By: #### 5 8410-2 ####[facility] [id number] [place] [address] [place] Platelets (Bld) [#/Vol] 236 10*3/uL Normal 150-400 [facility] Comment on above: Order Comment: Speci men Type: BLOOD SPECIMENOrdering Facility: [facility] Address: [address] [place] [address] Performed By: #### 5 8410-2 ####[facility] [id number] [place] [address] [place] RBC (Bld) [#/Vol] 3.30 10*6/uL Low 3.90-5.20 [facility] Comment on above: Order Comment: Speci men Type: BLOOD SPECIMENOrdering Facility: [facility] Address: [address] [place] [address] Performed By: #### 5 8410-2 ####[facility] [id number] [place] [address] [place] WBC (Bld) [#/Vol] 11.09 10*3/uL High 3.70-11.00 [facility] Comment on above: Order Comment: Speci men Type: BLOOD SPECIMENOrdering Facility: [facility] Address: [address] [place] [address] Performed By: #### 5 8410-2 ####[facility] [id number] [place] [address] [place] CNCOon 01-10-2025 CNCO Letter Text Normal [facility] Creatinine and Glomerular fi ltration rate.predicted panel (S/P/Bld)on 01-10-2025 Creatinine [Mass/Vol] 0.62 mg/dL Normal 0.58-0.96 [facility] Comment on above: Order Comment: Speci juan Type: BLOOD SPECIMEN [facility] Address: [address] [place] [address] Performed By: #### 5 195-3, 16131-7, 67537-7 #### [facility] CLIA [id number] [address] [place] [address] [place] eGFRcr SerPlBld CKD-EPI 2020 125 mL/min/1.73m??? Normal >=60 [facility] Comment on above: Order Comment: Mich martinez Type: BLOOD SPECIMEN [facility]: [facility] Address: [address] [place] [address] Result Comment: Beth mated Glomerular Filtration Rate (eGFR) is calculated using the 2020 CKD-EPI creatinine equation. This equation utilizes serum creatinine, sex, and age as parameters. The creatinine assay has traceable calibration to isotope dilution-mass spectrometry. Refer to KDIGO guidelines for clinical interpretation. In patients with unstable renal function, e.g. those with acute kidney injury, the eGFR may not accurately reflect actual GFR. Performed By: #### 5 195-3, 06270-4, 72943-0 #### [facility] CLIA [id number] [address] [place] [address] [place] Hepatic function 2000 panelo n 01-10-2025 Albumin [Mass/Vol] 3.4 g/dL Low 3.9-4.9 [facility] Comment on above: Order Comment: Speci men Type: BLOOD SPECIMEN [facility] Address: [address] [place] [address] Performed By: #### 5 195-3, 65062-0, 36866-8 #### [facility] CLIA [id number] [address] [place] [address] [place] ALP [Catalytic activity/Vol] 108 U/L Normal 34-123 [facility] Comment on above: Order Comment: Speci men Type: BLOOD SPECIMEN [facility] Address: [address] [place] [address] Performed By: #### 5 195-3, 54188-1, 95985-8 #### [facility] CLIA [id number] [address] [place] [address] [place] ALT [Catalytic activity/Vol] 12 U/L Normal 7-38 [facility] Comment on above: Order Comment: Speci men Type: BLOOD SPECIMEN [facility] Address: [address] [place] [address] Performed By: #### 5 195-3, 89934-9, 90264-4 #### [facility] CLIA [id number] [address] [place] [address] [place] AST [Catalytic activity/Vol] 15 U/L Normal 13-35 [facility] Comment on above: Order Comment: Speci men Type: BLOOD SPECIMEN [facility] Address: [address] [place] [address] Performed By: #### 5 195-3, 07002-5, 06367-6 #### [facility] CLIA [id number] [address] [place] [address] [place] Bilirubin [Mass/Vol] 0.5 mg/dL Normal 0.2-1.3 [facility] Comment on above: Order Comment: Speci men Type: BLOOD SPECIMEN [facility] Address: [address] [place] [address] Performed By: #### 5 195-3, 47601-3, 87847-8 #### [facility] CLIA [id number] [address] [place] [address] [place] Bilirubin.conjugated [Mass/Vol] 0.1 mg/dL Normal <0.3 [facility] Comment on above: Order Comment: Speci men Type: BLOOD SPECIMEN [facility] Address: [address] [place] [address] Performed By: #### 5 195-3, 69331-5, 08423-7 #### [facility] CLIA [id number] [address] [place] [address] [place] Protein [Mass/Vol] 6.6 g/dL Normal 6.3-8.0 [facility] Comment on above: Order Comment: Speci men Type: BLOOD SPECIMEN [facility] Address: [address] [place] [address] Performed By: #### 5 195-3, 03506-1, #### [facility] CLIA [id number] [address] [place] [address] [place] Prot/Creat Uron 01-10-2025 Protein/Creatinine (U) [Mass ratio] 0.15 mg/mg High <0.15 [facility] Comment on above: Order Comment: Speci men Type: BLOOD SPECIMEN [facility] Address: [address] [place] [address] Result Comment: Adul t Proteinuria Categories: <0.15 mg/mg is considered normal to mildly increased 0.15 - 0.50 mg/mg is considered moderately increased >0.50 mg/mg is considered severely increased KDIGO. (2013). KDIGO 2012 Clinical Practice Guideline for the Evaluation and Management of Chronic Kidney Disease. Official Journal of the International Society of Nephrology, 3(1), 1-150. Performed By: #### 5 195-3, 62366-9, 71456-0 #### [facility] CLIA [id number] [address] [place], [place] [address] [place] Protein/Creatinine (U) [Mass ratio]on 01-10-2025 Creatinine (U) [Mass/Vol] 33.1 mg/dL Normal 20.0-300.0 [facility] Comment on above: Order Comment: Speci men Type: BLOOD SPECIMEN [facility] Address: [address] [place] [address] Performed By: #### 5 195-3, 31141-9, 38007-3 #### [facility] CLIA [id number] [address] [place] [address] [place] Protein (U) [Mass/Vol] 5 mg/dL Normal 0-20 [facility] Comment on above: Order Comment: Speci men Type: BLOOD SPECIMEN [facility] Address: [address] [place] [address] Performed By: #### 5 195-3, 74876-0, 48256-6 #### [facility] CLIA [id number] [address] [place] [address] [place] Urate SerPl-mCncon Urate [Mass/Vol] 3.8 mg/dL Normal 2.5-6.6 [facility] Comment on above: Order Comment: Speci men Type: BLOOD SPECIMEN [facility] Address: [address] [place] [address] Performed By: #### 5 195-3, 34841-4, 77523-3 #### [facility] CLIA [id number] [address] [place], [place] [address] [place] Ricardo 01-07-2025 [facility] Telephone (OBGYWM) ---- GABE HUBBARD ([id number]) 1995 F [facility] Date Time Provider Department 01/07/25 [facility] During your visit today, we recorded the following information about you: Breanna Gillette RN 01/07/2025 9:19 AM Signed 32w3d C/o pain in pelvic area for past couple of weeks. 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 Has not noticed increase in swelling. Pain Improves with sitting. Has not taken anything for the pain/Has not used heating pad. +FM.Denies vaginal bleeding, denies abdominal pain, denies vaginal itching States does have white discharge, thick on underwear, not noticing every time she wipes. Not sexually active in months. Advised Pt when able to take breaks at work-sit and put feet up, advised to take 1,000mg tylenol q6 hours PRN and may be a good idea to take before she's on her feet all day, stay hydrated, monitor kick counts/notify office if decreased movement, monitor for vaginal bleeding/vaginal itching/abdominal pain AND notify office. Advised Pt to use heating pad after work alternating hips and to also take tylenol at that time if needed. Pt advised that this pelvic pain sounds normal with her being 32w3d and being on her feet for 8 hours a day and minimal breaks AND she should contact office if not noticing improvement with the above advice. Pt voiced understanding. Next OB appt 01/20/25. 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 Thank you, Brooklyn Villalpando APRN.Rita Ness RN 01/07/2025 12:23 PM Signed Left message to check [employer] message and call with any questions. Rita Chairez RN Allergies As of Date: 01/07/2025 Noted Allergy Reaction AMOXICILLIN 07/21/2014 7 - Swelling PENICILLINS 07/21/2014 7 - Swelling Date Reviewed: 12/27/2024 Reviewed by: Klarissa Rain MD - Fully Assessed Reason for Visit: Pelvic Pain [282] Prescriptions as of 01/07/2025 - aspirin, enteric coated (ECOTRIN LOW STRENGTH) 81 mg EC tablet Take 1 tablet by mouth once daily. - Vitamin w/ Iron (PNV NO. 72, W/ IRON,) 27 mg iron- 1 mg Take 1 tablet by mouth once daily. Meds Comments as of 12/14/2015: Pt states she takes control pill, unable to recall which one Problem List As Of Date 01/07/2025 Noted Resolved Use of nicotine during (HCC) [O99.330]08/01/2024 Vaginal discharge [N89.8] 08/01/2024 Depression with anxiety [F41.8] 08/01/2024 Nausea and vomiting during (HCC) [O21*08/01/2024 Fall [W19.XXXA] 08/01/2024 Penicillin allergy [Z88.0] 08/01/2024 Rh negative state in antepartum period ([facility]) [O*09/12/2024 Anemia complicating , third trimester *12/30/2024 Encounter Status:Closed by RITA CHAIREZ on 01/07/25 [facility]ABE [facility] ([id number]) 1995 F [facility] Date Time Provider Department 01/02/25 [facility] During your visit today, we recorded the following information about you: Klarissa Beckett, KATIE 01/02/2025 8:13 AM Signed Received request from [facility] for breast pump, compression stockings, lumbar support, abdominal binder, and BP cuff. To RR to sign. KATIE Vega Tara, RN 01/02/2025 12:25 PM Signed Faxed. Breanna Gillette RN Allergies As of Date: 01/02/2025 Noted Allergy Reaction AMOXICILLIN 07/21/2014 7 - Swelling PENICILLINS 07/21/2014 7 - Swelling Date Reviewed: 12/27/2024 Reviewed by: Klarissa Rain MD - Fully Assessed Reason for Visit: Breast Pump RX [Other] Prescriptions as of 01/02/2025 - aspirin, enteric coated (ECOTRIN LOW STRENGTH) 81 mg EC tablet Take 1 tablet by mouth once daily. - Vitamin w/ Iron (PNV NO. 72, W/ IRON,) 27 mg iron- 1 mg Take 1 tablet by mouth once daily. Meds Comments as of 12/14/2015: Pt states she takes control pill, unable to recall which one Problem List As Of Date 01/02/2025 Noted Resolved Use of nicotine during ([facility]) [O99.330]08/01/2024 Vaginal discharge [N89.8] 08/01/2024 Depression with anxiety [F41.8] 08/01/2024 Nausea and vomiting during ([facility]) [O21*08/01/2024 Fall [W19.XXXA] 08/01/2024 Penicillin allergy [Z88.0] 08/01/2024 Rh negative state in antepartum period ([facility]) [O*09/12/2024 Anemia complicating , third trimester *12/30/2024 Encounter Status:Closed by BREANNA GILLETTE on 01/02/25 Normal [facility] POCT SPOTFIRE R/ST Panel Min i w/COVID ([facility]) manually resultedOrdered By: Caren Haro on 01-01-2025 POC Human Rhinovirus PCR Negative Negative [facility] POC Influenza A Virus PCR Negative Negative [facility] POC Influenza B Virus PCR Negative Negative [facility] POC Respiratory Syncytial Virus PCR Negative Negative [facility] POC Sars-Cov-2 PCR Negative Negative [facility] CBC W Auto Differential pane l (Bld)on 12-27-2024 Basophils (Bld) [#/Vol] 10*3/uL Normal <0.11 [facility] Comment on above: Order Comment: Speci men Type: BLOOD SPECIMEN [facility] Address: [address] [place] [address] Performed By: #### 5 195-3, 02264-5, 30397-6 #### [facility] CLIA [id number] [address] [place] [address] [place] Basophils/100 WBC (Bld) 0.2 % Normal [facility] Comment on above: Order Comment: Speci men Type: BLOOD SPECIMEN [facility] Address: [address] [place] [address] Performed By: #### 5 195-3, 27709-5, 00162-7 #### [facility] CLIA [id number] [address] [place] [address] [place] Differential cell count method Nom (Bld) Auto Normal [facility] Comment on above: Order Comment: Speci men Type: BLOOD SPECIMEN [facility] Address: [address] [place] [address] Performed By: #### 5 195-3, 58215-1, 82058-7 #### [facility] CLIA [id number] [address] [place] [address] [place] Eosinophils (Bld) [#/Vol] 0.11 10*3/uL Normal <0.46 [facility] Comment on above: Order Comment: Speci men Type: BLOOD SPECIMEN [facility] Address: [address] [place] [address] Performed By: #### 5 195-3, 19910-3, 49905-3 #### [facility] CLIA [id number] [address] [place] [address] [place] Eosinophils/100 WBC (Bld) 1.1 % Normal [facility] Comment on above: Order Comment: Speci men Type: BLOOD SPECIMEN [facility] Address: [address] [place] [address] Performed By: #### 5 195-3, 88957-1, 58196-2 #### [facility] CLIA [id number] [address] [place] [address] [place] Erythrocyte distribution width (RBC) [Ratio] 12.9 % Normal 11.5-15.0 [facility] Comment on above: Order Comment: Speci men Type: BLOOD SPECIMEN [facility] Address: [address] [place] [address] Performed By: #### 5 195-3, 47823-9, 69645-9 #### [facility] CLIA [id number] [address] [place] [address] [place] Hematocrit (Bld) [Volume fraction] 30.7 % Low 36.0-46.0 [facility] Comment on above: Order Comment: Speci men Type: BLOOD SPECIMEN [facility] Address: [address] [place] [address] Performed By: #### 5 195-3, 94143-1, 49303-3 #### [facility] CLIA [id number] [address] [place] [address] [place] Hemoglobin (Bld) [Mass/Vol] 10.6 g/dL Low 11.5-15.5 [facility] Comment on above: Order Comment: Speci men Type: BLOOD SPECIMEN [facility] Address: [address] [place] [address] Performed By: #### 5 195-3, 29617-2, 48157-2 #### [facility] CLIA [id number] [address] [place] [address] [place] Immature granulocytes (Bld) [#/Vol] 0.08 10*3/uL Normal <0.10 [facility] Comment on above: Order Comment: Speci men Type: BLOOD SPECIMEN [facility] Address: [address] [place] [address] Performed By: #### 5 195-3, 93126-2, 71207-2 #### [facility] CLIA [id number] [address] [place] [address] [place] Immature granulocytes/100 WBC (Bld) 0.8 % Normal [facility] Comment on above: Order Comment: Speci men Type: BLOOD SPECIMEN [facility] Address: [address] [place] [address] Performed By: #### 5 195-3, 13148-0, 45904-1 #### [facility] CLIA [id number] [address] [place] [address] [place] Lymphocytes (Bld) [#/Vol] 2.27 10*3/uL Normal 1.00-4.00 [facility] Comment on above: Order Comment: Speci men Type: BLOOD SPECIMEN [facility] Address: [address] [place] [address] Performed By: #### 5 195-3, 67883-4, 27915-4 #### [facility] CLIA [id number] [address] [place] [address] [place] Lymphocytes/100 WBC (Bld) 22.1 % Normal [facility] Comment on above: Order Comment: Speci men Type: BLOOD SPECIMEN [facility] Address: [address] [place] [address] Performed By: #### 5 195-3, 21789-4, 75136-6 #### [facility] CLIA [id number] [address] [place] [address] [place] MCH (RBC) [Entitic mass] 32.9 pg Normal 26.0-34.0 [facility] Comment on above: Order Comment: Speci men Type: BLOOD SPECIMEN [facility] Address: [address] [place] [address] Performed By: #### 5 195-3, 42744-1, 05129-5 #### [facility] CLIA [id number] [address] [place] [address] [place] MCHC (RBC) [Mass/Vol] 34.5 g/dL Normal 30.5-36.0 [facility] Comment on above: Order Comment: Speci men Type: BLOOD SPECIMEN [facility] Address: [address] [place] [address] Performed By: #### 5 195-3, 21821-8, 41831-1 #### [facility] CLIA [id number] [address] [place] [address] [place] MCV (RBC) [Entitic vol] 95.3 fL Normal 80.0-100.0 C [facility] Comment on above: Order Comment: Speci men Type: BLOOD SPECIMEN [facility] Address: [address] [place] [address] Performed By: #### 5 195-3, 83588-7, 21566-1 #### [facility] CLIA [id number] [address] [place] [address] [place] Monocytes (Bld) [#/Vol] 0.67 10*3/uL Normal <0.87 [facility] Comment on above: Order Comment: Speci men Type: BLOOD SPECIMEN [facility] Address: [address] [place] [address] Performed By: #### 5 195-3, 97344-5, #### [facility] CLIA [id number] [address] [place] [address] [place] Monocytes/100 WBC (Bld) 6.5 % Normal C [facility] Comment on above: Order Comment: Speci men Type: BLOOD SPECIMEN [facility] Address: [address] [place] [address] Performed By: #### 5 195-3, 92216-7, 12355-3 #### [facility] CLIA [id number] [address] [place] [address] [place] Neutrophils (Bld) [#/Vol] 7.13 10*3/uL Normal 1.45-7.50 [facility] Comment on above: Order Comment: Speci men Type: BLOOD SPECIMEN [facility] Address: [address] [place] [address] Performed By: #### 5 195-3, 60543-1, 39729-6 #### [facility] CLIA [id number] [address] [place] [address] [place] Neutrophils/100 WBC (Bld) 69.3 % Normal [facility] Comment on above: Order Comment: Speci men Type: BLOOD SPECIMEN [facility] Address: [address] [place] [address] Performed By: #### 5 195-3, 85233-2, 95339-9 #### [facility] CLIA [id number] [address] [place] [address] [place] Nucleated RBC (Bld) [#/Vol] 10*3/uL Normal <0.01 [facility] Comment on above: Order Comment: Speci men Type: BLOOD SPECIMEN [facility] Address: [address] [place] [address] Performed By: #### 5 195-3, 27589-2, 23001-3 #### [facility] CLIA [id number] [address] [place] [address] [place] Nucleated RBC/100 WBC (Bld) [Ratio] 0.0 /100 WBC Normal [facility] Comment on above: Order Comment: Speci men Type: BLOOD SPECIMEN [facility] Address: [address] [place] [address] Performed By: #### 5 195-3, 24233-4, 68269-7 #### [facility] CLIA [id number] [address] [place] [address] [place] Platelet mean volume (Bld) [Entitic vol] 9.9 fL Normal 9.0-12.7 [facility] Comment on above: Order Comment: Speci men Type: BLOOD SPECIMEN [facility] Address: [address] [place] [address] Performed By: #### 5 195-3, 17838-8, 11554-1 #### [facility] CLIA [id number] [address] [place] [address] [place] Platelets (Bld) [#/Vol] 214 10*3/uL Normal 150-400 [facility] Comment on above: Order Comment: Speci men Type: BLOOD SPECIMEN [facility] Address: [address] [place] [address] Performed By: #### 5 195-3, 19881-0, 79560-2 #### [facility] CLIA [id number] [address] [place] [address] [place] RBC (Bld) [#/Vol] 3.22 10*6/uL Low 3.90-5.20 [facility] Comment on above: Order Comment: Speci men Type: BLOOD SPECIMEN [facility] Address: [address] [place] [address] Performed By: #### 5 195-3, 74315-3, 89914-6 #### [facility] CLIA [id number] [address] [place] [address] [place] WBC (Bld) [#/Vol] 10.28 10*3/uL Normal 3.70-11.00 [facility] Comment on above: Order Comment: Speci men Type: BLOOD SPECIMEN [facility] Address: [address] [place] [address] Performed By: #### 5 195-3, 42665-6, 42283-6 #### [facility] CLIA [id number] [address] [place], [place] [address] [place] Ferritin SerPl-mCncon 2024 Ferritin [Mass/Vol] 14.2 ng/mL Low 14.7-205.1 [facility] Comment on above: Order Comment: Mich martinez Type: BLOOD SPECIMEN [facility] Address: [address] [place] [address] Performed By: #### 5 195-3, 81965-2, 59561-6 #### [facility] CLIA [id number] [address] [place] [address] [place] GESTATIONAL GLUCOSE SCREEN, 1-HOUR, 50 GRAM, NON-FASTINGon 12-27-2024 Glucose [Mass/Vol] 132 mg/dL Normal 74-134 [facility] Comment on above: Order Comment: Mich martinez Type: BLOOD SPECIMENOrdering Facility: [facility] Address: [address] [place] [address] Result Comment: [facility] Congress of Obstetricians and Gynecologists (Chasidy/Joanne) guidelines state a gestational diabetes mellitus positive screen is made, in women not previously diagnosed with overt diabetes, when the 1 hr plasma glucose level is equal to or above 140 mg/dL. [facility] [employer] [facility] [employer] recommends a 135 mg/dL cutoff. Performed By: #### G LTGST ####[facility] [id number] [place] [id number] [place] Iron and Iron binding capaci ty panelon 12-27-2024 Iron [Mass/Vol] 54 ug/dL Normal 41-186 [facility] Comment on above: Order Comment: Mich martinez Type: BLOOD SPECIMEN [facility] Address: [address] [place] [address] Performed By: #### 5 195-3, 76472-3, 82290-9 #### [facility] CLIA [id number] [address] [place], [place] [address] [place] Iron binding capacity [Mass/Vol] 466 ug/dL High 232-386 [facility] Comment on above: Order Comment: Speci men Type: BLOOD SPECIMEN [facility] Address: [address] [place] [address] Performed By: #### 5 195-3, 83455-6, 78255-3 #### [facility] CLIA [id number] [address] [place] [address] [place] Iron/TIBC [Molar ratio] 11.6 % Low 15.0-57.0 C [facility] Comment on above: Order Comment: Speci men Type: BLOOD SPECIMEN [facility] Address: [address] [place] [address] Performed By: #### 5 195-3, 11241-8, 27275-9 #### [facility] CLIA [id number] [address] [place] [address] [place] Reagin and Treponema pallidu m IgG and IgM [Interp]on 12-27-2024 T. pallidum IgG+IgM IA Ql (S) Non-Reactive Normal Nonreactive [facility] Comment on above: Order Comment: Speci men Type: BLOOD SPECIMENOrdering Facility: [facility] Address: [address] [place] [address] Performed By: #### 7 3752-8 ####[facility] LABCLIA [id number] [place] [address] [place] Reagin+T pallidum IgG+IgM Se rPl-Impon 12-27-2024 Reagin and Treponema pallidum IgG and IgM [Interp] Cannot exclude recent Treponemal infection if specimen collected within 7-10 days after appearance of suspect lesions or 2-3 weeks after an exposure. Clinical correlation is required. Normal [facility] Comment on above: Order Comment: Speci men Type: BLOOD SPECIMENOrdering Facility: [facility] Address: [address] [place] [address] Performed By: #### 7 3752-8 ####[facility] LABCLIA [id number] [place] [address] [place] TYPE + SCREEN PRENATALon ABO O Normal [facility] Comment on above: Order Comment: Speci men Type: BLOOD SPECIMEN [facility] Address: [address] [place] [address] Performed By: #### 5 195-3, 81526-7, 62054-2 #### [facility] CLIA [id number] [address] [place] [address] [place] Rh Nom (Bld) Negative Normal [facility] Comment on above: Order Comment: Speci men Type: BLOOD SPECIMEN [facility] Address: [address] [place] [address] Performed By: #### 5 195-3, 66640-3, 38223-1 #### [facility] CLIA [id number] [address] [place] [address] [place] TYPE AND SCREEN EXPIRATION 12/30/2024 23:59 Normal [facility] Comment on above: Order Comment: Speci men Type: BLOOD SPECIMEN [facility] Address: [address] [place] [address] Performed By: #### 5 195-3, 93443-3, 18498-9 #### [facility] CLIA [id number] [address] [place] [address] [place] CNCOon 12-04-2024 CNCO Letter Text Normal [facility] BACTERIAL VAGINOSIS NAATon 0 11-28-2024 Lactobacillus crispatus+gasseri+jense tanvir + Gardnerella vaginalis + Atopobium vaginae rRNA JOSEFA+probe Ql (Vag fld) Not detected Normal Not detected [facility] Comment on above: Order Comment: Speci men Type: SWABOrdering Facility: [facility] Address: [address] [place] [address] Performed By: #### B VAMP, CVTV ####[facility] LABCLIA [id number] [place] [address] [place] YOUSUF/TRICHOMONAS NAATon 0 11-28-2024 C. glabrata RNA JOSEFA+probe Ql (Vag fld) Not detected Normal Not detected [facility] Comment on above: Order Comment: Speci men Type: SWABOrdering Facility: [facility] Address: [address] [place] [address] Performed By: #### B VAMP, CVTV ####[facility] LABCLIA [id number] [place] [address] [place] Yousuf sp DNA JOSEFA+probe Ql (Vag fld) Not detected Normal Not detected [facility] Comment on above: Order Comment: Speci men Type: SWABOrdering Facility: [facility] Address: [address] [place] [address] Result Comment: The Yousuf species group target includes C. albicans, C. tropicalis, C. parapsilosis, and C. dubliniensis. Performed By: #### B VAMP, CVTV ####[facility] LABCLIA [id number] [place] [address] [place] T. vaginalis DNA JOSEFA+probe Ql (Unsp spec) Not detected Normal Not detected [facility] Comment on above: Order Comment: Speci men Type: SWABOrdering Facility: [facility] Address: [address] [place] [address] Performed By: #### B VAMP, CVTV ####[facility] LABCLIA [id number] [place] [address] [place] UA DIP, URINE (POC)on 2024 BILIRUBIN UA (POCT) Negative Negative [facility] CLARITY UA (POCT) Clear [facility] COLOR UA (POCT) Yellow [facility] GLUCOSE UA (POCT) Negative Negative mg/dL [facility] Hemoglobin Ql (U) Negative Negative [facility] KETONE UA (POCT) Negative Negative mg/dL [facility] LEUKOCYTES UA (POCT) Negative Negative [facility] NITRITE UA (POCT) Negative Negative [facility] PH UA (POCT) 6.0 4.5 - 8.0 [facility] Protein Ql (U) Negative Negative mg/dL [facility] SPECIFIC GRAVITY UA (POCT) 1.010 1.005 - 1.030 [facility] UROBILINOGEN UA (POCT) 0.2 Normal E.U./d L [facility] Location:[facility], [address] [facility], [place], [place], [id number] [place] [address] POINT OF CARE [facility] Examination level ultrasound on 10-31-2024 Indication Standard anatomic survey Impression remote read The patient is referred for a standard anatomic survey. - Single, live, intrauterine . - biometry is consistent with the established gestational age. - No malformations were visualized on a complete standard anatomic survey. - The amniotic fluid volume is normal amount. - The placenta is anterior, fundal. - The Transvaginal cervical length measures 35.6 mm with no evidence of funneling or other dynamic changes. - Not all structural malformations can be detected by ultrasound examination. Recommendations Additional follow-up as clinically indicated. Maternal Assessment Height 163 cm Height (ft) 5 ft Height (in) 4 in Physical Exam Initial weight (lb) 142 lb Initial BMI 24.37 kg/m Method Transabdominal and transvaginal ultrasound examination. View: Adequate visualization Alfaro . Number of fetuses: 1 Dating LMP on: 06/08/2024 GA by LMP 20 w + 5 d TORRI by LMP: 03/15/2025 GA by prior assessment 20 w + 5 d TORRI by prior assessment: 03/15/2025 Ultrasound examination on: 10/31/2024 GA by U/S based upon: AC, BPD, Femur, HC GA by U/S 20 w + 6 d TORRI by U/S: 03/14/2025 Assigned: based on stated TORRI, selected on 09/11/2024 Assigned GA 20 w + 5 d Assigned TORRI: 03/15/2025 General Evaluation Cardiac activity present. FHR 159 bpm. movements: present. Presentation: breech Placenta: Placental site: anterior, fundal Umbilical cord: Cord vessels: 3 vessel cord. Insertion site: normal insertion Amniotic fluid: Amount of AF: normal amount. MVP 4.5 cm Growth Overview Exam date GA BPD (mm) HC (mm) AC (mm) FL (mm) HL (mm) EFW (g) 10/31/2024 20w 5d 48.2 43% 177.6 35% 168.4 79% 33 48% 32.4 54% 393 61% Biometry Standard BPD 48.2 mm 20w 4d 43% Hadlock OFD 62.8 mm 20w 1d 44% Nicolaides HC 177.6 mm 20w 2d 35% Jewel Cerebellum tr 21.1 mm 20w 0d 41% Hill Nuchal fold 3.9 mm AC 168.4 mm 21w 6d 79% Hadlock Femur 33.0 mm 20w 3d 48% Jewel Humerus 32.4 mm 20w 6d 54% Jewel EFW 393 g 20w 6d 61% Hadlock EFW (lb) 0 lb EFW (oz) 14 oz EFW by: Hadlock (HC-AC-FL) [facility] 5.9 mm CM 4.6 mm 31% Nicolaides Nasal bone 6.3 mm Extremities / Bony Struc FL / HC 0.19 48% Hadlock Other Structures FHR 159 bpm Anatomy Cranium: normal Lateral ventricles: normal Choroid plexus: normal Midline falx: normal Cavum septi pellucidi: normal Cerebellum: normal Cisterna magna: normal Head / Neck Vermis: Normal but not required for a standard anatomy exam Neck: Normal but not required for a standard anatomy exam Nuchal fold: Normal but not required for a standard anatomy exam Lips: normal Profile: Normal but not required for a standard anatomy exam Nose: Normal but not required for a standard anatomy exam Face Maxilla: Normal but not required for a standard anatomy exam Mandible: Normal but not required for a standard anatomy exam Orbits: Normal but not required for a standard anatomy exam Lens: Normal but not required for a standard anatomy exam 4-chamber view: normal RVOT view: normal LVOT view: normal 3-vessel view: normal 9-[id number]-[id number] view: normal Heart / Thorax Situs: situs solitus (normal) Aortic arch view: Normal but not required for a standard anatomy exam SVC: Normal but not required for a standard anatomy exam IVC: Normal but not required for a standard anatomy exam Cardiac axis: normal Rt lung: Normal but not required for a standard anatomy exam Lt lung: Normal but not required for a standard anatomy exam Diaphragm: normal Cord insertion: normal Stomach: normal Kidneys: normal Bladder: normal Genitals: normal Abdomen Abdom. wall: normal Cervical spine: normal Thoracic spine: normal Lumbar spine: normal Sacral spine: normal Arms: normal Legs: normal Rt upper arm: normal Rt forearm: normal Rt hand: normal Rt fingers: normal Lt upper arm: normal Lt forearm: normal Lt hand: normal Lt fingers: normal Rt upper leg: normal Rt lower leg: normal Rt foot: normal Lt upper leg: normal Lt lower leg: normal Lt foot: normal sex: female Wants to know sex: yes Maternal Structures Uterus / Cervix Uterus: Visualized Cervix: Visualized Approach: Transvaginal Cervical length 35.6 mm Ovaries / Tubes / Adnexa Rt ovary: Normal Lt ovary: Normal Performed By: Taniya Hartley RDMS Read By: Juanis Oviedo M.D. MATERNAL MEDICINE [facility] Radiology Study observation (narrative) [facility] 10-03-2024 [facility] Telephone (OBGYWM) ---- GABE VIERA ([id number]) 1995 [facility] Date Time Provider Department 10/03/24 OCTAVAI HERZOG OBGYWMorenita During your visit today, we recorded the following information about you: Breanna Gillette RN 10/03/2024 1:25 PM Signed SW asked that Pt's FMLA, work restrictions letter, AND list of patient appointments be printed out for patient. 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 All are printed out with patient label and at nurses desk. KATIE Alamo Trisha, RN 10/15/2024 9:21 AM Signed Patient called in and will pick paperwork up. All to front of house manager front of house manager binder. Rita Chairez RN Allergies As of Date: 10/03/2024 Noted Allergy Reaction AMOXICILLIN 07/21/2014 7 - Swelling PENICILLINS 07/21/2014 7 - Swelling Date Reviewed: 10/03/2024 Reviewed by: Karly Pardo MA - Fully Assessed Reason for Visit: Records [Other] Prescriptions as of 10/15/2024 - aspirin, enteric coated (ECOTRIN LOW STRENGTH) 81 mg EC tablet Take 1 tablet by mouth once daily. - Vitamin w/ Iron (PNV NO. 72, W/ IRON,) 27 mg iron- 1 mg Take 1 tablet by mouth once daily. 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]08/01/2024 Vaginal discharge [N89.8] 08/01/2024 Encounter for supervision of high risk pregnanc*08/01/2024 Depression with anxiety [F41.8] 08/01/2024 Nausea and vomiting during (HCC) [O21*08/01/2024 Fall [W19.XXXA] 08/01/2024 Penicillin allergy [Z88.0] 08/01/2024 Rh negative state in antepartum period ([facility]) [O*09/12/2024 Encounter Status:Closed by RITA CHAIREZ on 10/15/24 Normal [facility] CBC W Auto Differential pane l (Bld)on 09-11-2024 Basophils (Bld) [#/Vol] 0.03 10*3/uL Normal <0.11 [facility] Comment on above: Order Comment: Speci men Type: BLOOD SPECIMEN [facility] Address: [address] [place] [address] Performed By: #### 5 195-3, 08794-5, 81094-8 #### [facility] CLIA [id number] [address] [place] [address] [place] Basophils/100 WBC (Bld) 0.4 % Normal C [facility] Comment on above: Order Comment: Speci men Type: BLOOD SPECIMEN [facility] Address: [address] [place] [address] Performed By: #### 5 195-3, 77364-2, 09229-1 #### [facility] CLIA [id number] [address] [place] [address] [place] Differential cell count method Nom (Bld) Auto Normal [facility] Comment on above: Order Comment: Speci men Type: BLOOD SPECIMEN [facility] Address: [address] [place] [address] Performed By: #### 5 195-3, 53177-8, 37531-2 #### [facility] CLIA [id number] [address] [place] [address] [place] Eosinophils (Bld) [#/Vol] 0.07 10*3/uL Normal <0.46 [facility] Comment on above: Order Comment: Speci men Type: BLOOD SPECIMEN [facility] Address: [address] [place] [address] Performed By: #### 5 195-3, 81232-2, 88789-3 #### [facility] CLIA [id number] [address] [place] [address] [place] Eosinophils/100 WBC (Bld) 0.8 % Normal [facility] Comment on above: Order Comment: Speci men Type: BLOOD SPECIMEN [facility] Address: [address] [place] [address] Performed By: #### 5 195-3, 82010-9, 78470-5 #### [facility] CLIA [id number] [address] [place] [address] [place] Erythrocyte distribution width (RBC) [Ratio] 12.7 % Normal 11.5-15.0 [facility] Comment on above: Order Comment: Speci men Type: BLOOD SPECIMEN [facility] Address: [address] [place] [address] Performed By: #### 5 195-3, 18784-0, 48836-4 #### [facility] CLIA [id number] [address] [place] [address] [place] Hematocrit (Bld) [Volume fraction] 37.6 % Normal 36.0-46.0 [facility] Comment on above: Order Comment: Speci men Type: BLOOD SPECIMEN [facility] Address: [address] [place] [address] Performed By: #### 5 195-3, 48081-0, 11824-2 #### [facility] CLIA [id number] [address] [place] [address] [place] Hemoglobin (Bld) [Mass/Vol] 12.5 g/dL Normal 11.5-15.5 [facility] Comment on above: Order Comment: Speci men Type: BLOOD SPECIMEN [facility] Address: [address] [place] [address] Performed By: #### 5 195-3, 71587-5, 84601-9 #### [facility] CLIA [id number] [address] [place] [address] [place] Immature granulocytes (Bld) [#/Vol] 0.03 10*3/uL Normal <0.10 [facility] Comment on above: Order Comment: Speci men Type: BLOOD SPECIMEN [facility] Address: [address] [place] [address] Performed By: #### 5 195-3, 41749-1, 60565-7 #### [facility] CLIA [id number] [address] [place] [address] [place] Immature granulocytes/100 WBC (Bld) 0.4 % Normal [facility] Comment on above: Order Comment: Speci men Type: BLOOD SPECIMEN [facility] Address: [address] [place] [address] Performed By: #### 5 195-3, 20318-3, 35260-4 #### [facility] CLIA [id number] [address] [place] [address] [place] Lymphocytes (Bld) [#/Vol] 2.41 10*3/uL Normal 1.00-4.00 [facility] Comment on above: Order Comment: Speci men Type: BLOOD SPECIMEN [facility] Address: [address] [place] [address] Performed By: #### 5 195-3, 48061-4, 65321-0 #### [facility] CLIA [id number] [address] [place] [address] [place] Lymphocytes/100 WBC (Bld) 28.5 % Normal [facility] Comment on above: Order Comment: Speci men Type: BLOOD SPECIMEN [facility] Address: [address] [place] [address] Performed By: #### 5 195-3, 77113-7, 38562-5 #### [facility] CLIA [id number] [address] [place] [address] [place] MCH (RBC) [Entitic mass] 30.9 pg Normal 26.0-34.0 [facility] Comment on above: Order Comment: Speci men Type: BLOOD SPECIMEN [facility] Address: [address] [place] [address] Performed By: #### 5 195-3, 32525-1, 06605-9 #### [facility] CLIA [id number] [address] [place] [address] [place] MCHC (RBC) [Mass/Vol] 33.2 g/dL Normal 30.5-36.0 [facility] Comment on above: Order Comment: Speci men Type: BLOOD SPECIMEN [facility] Address: [address] [place] [address] Performed By: #### 5 195-3, 61952-9, 79838-9 #### [facility] CLIA [id number] [address] [place] [address] [place] MCV (RBC) [Entitic vol] 92.8 fL Normal 80.0-100.0 [facility] Comment on above: Order Comment: Speci men Type: BLOOD SPECIMEN [facility] Address: [address] [place] [address] Performed By: #### 5 195-3, 47953-4, 27310-5 #### [facility] CLIA [id number] [address] [place] [address] [place] Monocytes (Bld) [#/Vol] 0.44 10*3/uL Normal <0.87 [facility] Comment on above: Order Comment: Speci men Type: BLOOD SPECIMEN [facility] Address: [address] [place] [address] Performed By: #### 5 195-3, 69768-1, 66169-9 #### [facility] CLIA [id number] [address] [place] [address] [place] Monocytes/100 WBC (Bld) 5.2 % Normal C [facility] Comment on above: Order Comment: Speci men Type: BLOOD SPECIMEN [facility] Address: [address] [place] [address] Performed By: #### 5 195-3, 51776-6, 07923-8 #### [facility] CLIA [id number] [address] [place] [address] [place] Neutrophils (Bld) [#/Vol] 5.48 10*3/uL Normal 1.45-7.50 [facility] Comment on above: Order Comment: Speci men Type: BLOOD SPECIMEN [facility] Address: [address] [place] [address] Performed By: #### 5 195-3, 85888-1, 31414-2 #### [facility] CLIA [id number] [address] [place] [address] [place] Neutrophils/100 WBC (Bld) 64.7 % Normal [facility] Comment on above: Order Comment: Speci men Type: BLOOD SPECIMEN [facility] Address: [address] [place] [address] Performed By: #### 5 195-3, 81612-8, 06731-6 #### [facility] CLIA [id number] [address] [place] [address] [place] Nucleated RBC (Bld) [#/Vol] 10*3/uL Normal <0.01 [facility] Comment on above: Order Comment: Speci men Type: BLOOD SPECIMEN [facility] Address: [address] [place] [address] Performed By: #### 5 195-3, 47882-7, 39544-2 #### [facility] CLIA [id number] [address] [place] [address] [place] Nucleated RBC/100 WBC (Bld) [Ratio] 0.0 /100 WBC Normal [facility] Comment on above: Order Comment: Speci men Type: BLOOD SPECIMEN [facility] Address: [address] [place] [address] Performed By: #### 5 195-3, 16253-9, 15487-0 #### [facility] CLIA [id number] [address] [place] [address] [place] Platelet mean volume (Bld) [Entitic vol] 9.6 fL Normal 9.0-12.7 [facility] Comment on above: Order Comment: Speci men Type: BLOOD SPECIMEN [facility] Address: [address] [place] [address] Performed By: #### 5 195-3, 29819-6, 76653-9 #### [facility] CLIA [id number] [address] [place] [address] [place] Platelets (Bld) [#/Vol] 237 10*3/uL Normal 150-400 [facility] Comment on above: Order Comment: Speci men Type: BLOOD SPECIMEN [facility] Address: [address] [place] [address] Performed By: #### 5 195-3, 89533-1, 95366-2 #### [facility] CLIA [id number] [address] [place] [address] [place] RBC (Bld) [#/Vol] 4.05 10*6/uL Normal 3.90-5.20 [facility] Comment on above: Order Comment: Speci men Type: BLOOD SPECIMEN [facility] Address: [address] [place] [address] Performed By: #### 5 195-3, 61244-4, 41513-5 #### [facility] CLIA [id number] [address] [place] [address] [place] WBC (Bld) [#/Vol] 8.46 10*3/uL Normal 3.70-11.00 [facility] Comment on above: Order Comment: Speci men Type: BLOOD SPECIMEN [facility] Address: [address] [place] [address] Performed By: #### 5 195-3, 95132-4, 92027-2 #### [facility] CLIA [id number] [address] [place] [address] [place] Examination level ultrasound on 09-11-2024 Indication First trimester anatomic survey Impression The patient is referred for a first trimester anatomy scan including nuchal translucency measurement as clinically indicated. - Single, live, intrauterine . - Danby rump length measurement is consistent with the established gestational age. - No malformations visualized on a complete first trimester anatomic assessment. - The nuchal translucency measurement is 1.7 mm. - Not all structural malformations can be detected by ultrasound examination. Maternal Structures: Right Ovary: Size 37 mm x 20 mm x 15 mm Left Ovary: Size 33 mm x 32 mm x 14 mm Recommendations Return for anatomy ultrasound Maternal Assessment Height 163 cm Height (ft) 5 ft Height (in) 4 in Physical Exam Initial weight (lb) 142 lb Initial BMI 24.37 kg/m Maternal assessment other: 1 Para 0 REMOTE READ Method Transabdominal ultrasound examination Alfaro . Number of fetuses: 1 Dating LMP on: 06/08/2024 GA by LMP 13 w + 4 d TORRI by LMP: 03/15/2025 GA by prior assessment 13 w + 4 d TORRI by prior assessment: 03/15/2025 Ultrasound examination on: 09/11/2024 GA by U/S based upon: CRL GA by U/S 13 w + 2 d TORRI by U/S: 03/17/2025 Assigned: based on stated TORRI, selected on 09/11/2024 Assigned GA 13 w + 4 d Assigned TORRI: 03/15/2025 General Evaluation Cardiac activity present Placenta: anterior Cord vessels: 3 vessel cord Amniotic fluid: normal amount Biometry Standard FHR 161 bpm CRL 70.4 mm 13w 2d 28% Hadlock NT 1.70 mm First Trimester Anatomy Calvarium: normal Falx cerebri: normal Choroid plexus: normal Profile: normal Nasal bone: normal Retronasal triangle: normal Maxilla: normal Mandible: normal Nuchal translucency: Unremarkable Situs: normal Cardiac position: normal Cardiac axis: normal 4-chamber view: suboptimal 4-chamber view with color: suboptimal [id number] view: visualized Abdominal cord insertion: normal Stomach: normal Kidneys: normal Bladder: normal Color doppler of perivesical umbilical arteries: normal Vertebral alignment: normal Arms: normal Hands: normal Legs: normal Feet: normal Maternal Structures Uterus / Cervix Uterus: Visualized Uterus length 121 mm Uterus width 96 mm Uterus height 79 mm Uterus Vol 477.6 cm Ovaries / Tubes / Adnexa Rt ovary: Visualized Rt ovary D1 37 mm Rt ovary D2 20 mm Rt ovary D3 15 mm Rt ovary Vol 5.5 cm Lt ovary: Visualized Lt ovary D1 33 mm Lt ovary D2 32 mm Lt ovary D3 14 mm Lt ovary Vol 7.5 cm Performed By: Cristobal Crenshaw RDMS, RVT Read By: Savannah Benitez M.D. MATERNAL MEDICINE [facility] Radiology Study observation (narrative) [facility] HBV surface Ag Ser Qlon 06-0 HBV surface Ag Ql (S) Negative Normal Negative [facility] Comment on above: Order Comment: Speci men Type: BLOOD SPECIMEN [facility] Address: [address] [place] [address] Performed By: #### 5 195-3, 64762-8, 89988-5 #### [facility] CLIA [id number] [address] [place] [address] [place] HCV Ab Ser Qlon 09-11-2024 HCV Ab Ql (S) Negative Normal Negative [facility] Comment on above: Order Comment: Speci men Type: BLOOD SPECIMEN Ordering Facility: [facility] Address: [address] [place] [address] Result Comment: The result suggests no evidence of infection with Hepatitis C virus. Should recent infection be suspected, repeat testing may be considered 4-6 weeks after this draw. Performed By: #### 1 6128-1 #### [facility] CLIA [id number] [address] [place] [address] [place] HIV 1+2 Ab IA Qlon HIV 1 and 2 Ab IA.rapid Nom (S/P/Bld) Normal [facility] Comment on above: Order Comment: Speci men Type: BLOOD SPECIMEN Ordering Facility: [facility] Address: [address] [place] [address] Result Comment: Test not indicated. Performed By: #### 5 195-3, 92395-0, 80907-3 #### [facility] CLIA [id number] [address] [place] [address] [place] HIV 1+2 Ab+HIV1 p24 Ag IA Ql Non-Reactive Normal Nonreactive [facility] Comment on above: Order Comment: Speci men Type: BLOOD SPECIMEN Ordering Facility: [facility] Address: [address] [place] [address] Performed By: #### 5 195-3, 61220-8, 95344-6 #### [facility] CLIA [id number] [address] [place] [address] [place] HIV immunoassay testing algorithm interpretation (S/P/Bld) [Interp] Normal [facility] Comment on above: Order Comment: Mich martinez Type: BLOOD SPECIMEN Ordering Facility: [facility] Address: [address] [place] [address] Result Comment: No e vidence of HIV-1 or HIV-2 infection. Should recent infection be suspected, repeat testing may be considered 2-3 weeks after this draw. [place] Rev. Code 3701.243(E): This information has been disclosed to you from confidential records protected from disclosure by state law. You shall make no further disclosure of this information without the specific, written, and informed release of the individual to whom it pertains or as otherwise permitted by state law. A general authorization for the release of medical or other information is not sufficient for the purpose of the release of HIV test results or diagnoses. Performed By: #### 5 195-3, 81380-2, 04981-4 #### [facility] CLIA [id number] [address] [place] [address] [place] HbA1c (Bld)on 09-11-2024 Average glucose Estimated from glycated hemoglobin (Bld) [Mass/Vol] 111 mg/dL Normal [facility] Comment on above: Order Comment: Mich juan Type: BLOOD SPECIMENOrdering Facility: [facility] Address: [address] [place] [address] Result Comment: eAG: (Estimated average glucose) is a calculated value from HgbA1c and is loan representative of the average blood glucose level in the last 2-3 month period. Performed By: #### 5 5454-3 ####[facility] [id number] [place] [address] [place] HbA1c (Bld) [Mass fraction] 5.5 % Normal 4.3-5.6 [facility] Comment on above: Order Comment: Mich martinez Type: BLOOD SPECIMENOrdering Facility: [facility] Address: [address] [place] [address] Result Comment: Amer ican Diabetes Association guidelines indicate that patients with HgbA1c in the range 5.7-6.4% are at increased risk for development of diabetes, and intervention by lifestyle modification may be beneficial. HgbA1c greater or equal to 6.5% is considered diagnostic of diabetes. Performed By: #### 5 5454-3 ####[facility] [id number] [place] [address] [place] [id number] PLUSon 09-11-2024 Cell-free DNA./Cell-free DNA.total Dosage of chromosome-specific cfDNA (cfDNA) [Molar fraction] 23% Normal [facility] Comment on above: Order Comment: Speci men Type: BLOOD SPECIMENOrdering Facility: [facility] Address: [address] [place] [address] Performed By: #### M AT21 ####[facility]CLIA [id number] [place] [address] Chr 13+18+21+X+Y aneuploidy Dosage of chromosome-specific cfDNA Ql (cfDNA) Negative Normal [facility] Comment on above: Order Comment: Speci men Type: BLOOD SPECIMENOrdering Facility: [facility] Address: [address] [place] [address] Performed By: #### M AT21 ####[facility] LABCLIA [id number] [place] [address] Chr 21 trisomy Dosage of chromosome-specific cfDNA Ql (cfDNA) Negative Normal [facility] Comment on above: Order Comment: Speci men Type: BLOOD SPECIMENOrdering Facility: [facility] Address: [address] [place] [address] Performed By: #### M AT21 ####[facility]IA [id number] [place] [address] Chr X and Y aneuploidy risk Sequencing Ql (cfDNA) [Interp] Not detected Normal [facility] Comment on above: Order Comment: Speci men Type: BLOOD SPECIMENOrdering Facility: [facility] Address: [address] [place] [address] Result Comment: Not Detected Not Detected Performed By: #### M AT21 ####[facility] LABCLIA [id number] [place] [id number] Citation Jame (Reference lab test) Comment Normal [facility] Comment on above: Order Comment: Speci men Type: BLOOD SPECIMENOrdering Facility: [facility] Address: [address] [place] [address] Result Comment: 1. P caitlin ROBBINS, et al. Kavitha Med. 2012;14(3):296-305. 2. Nicolas DURAN, et al. Prenat Diag. 2013;33(6):591-597. 3. Markel C, et al. Clin Chem. 2015 Apr;61(4):608-616. 4. Yogesh ROBBINS, et al. Kavitha Med. 2011;13(11):913-920. 5. ACOG/SMFM Practice Bulletin No. 226, Jan 2020. Performed By: #### M AT21 ####[facility]CLIA [id number] [place] [id number] Gestational age Estimated from conception date Alfaro Normal [facility] Comment on above: Order Comment: Speci men Type: BLOOD SPECIMENOrdering Facility: [facility] Address: [address] [place] [address] Performed By: #### M AT21 ####[facility]CLIA [id number] [place] [id number] GESTATIONALAGE AGE > OR = 9W Yes Normal [facility] Comment on above: Order Comment: Speci men Type: BLOOD SPECIMENOrdering Facility: [facility] Address: [address] [place] [address] Performed By: #### M AT21 ####[facility]CLIA [id number] [place] [address] Laboratory comment Jame (Report) Comment Normal [facility] Comment on above: Order Comment: Speci men Type: BLOOD SPECIMENOrdering Facility: [facility] Address: [address] [place] [address] Result Comment: The MaterniT(R) 21 PLUS laboratory-developed test (LDT) analyzes circulating cell-free DNA from a maternal blood sample. This test is used for screening purposes and not diagnostic. Clinical correlation is recommended. Validation data on twin pregnancies is limited and the ability of this test to detect aneuploidy in higher multiple gestations has not yet been validated. Performed By: #### M AT21 ####[facility]IA [id number] [place] [address] traffic engineering director name Nom (Provider) Comment Normal [facility] Comment on above: Order Comment: Speci men Type: BLOOD SPECIMENOrdering Facility: [facility] Address: [address] [place] [address] Result Comment: This specimen showed an expected representation of chromosome 21, 18 and 13 material. Clinical correlation is suggested. Comment Kenan Garcia MD, PhD, Director, [facility] Performed By: #### M AT21 ####[facility] LABCLIA [id number] [place] [address] LIMITATIONS OF THE TEST Comment Normal [facility] Comment on above: Order Comment: Speci men Type: BLOOD SPECIMENOrdering Facility: [facility] Address: [address] [place] [address] Result Comment: Whil e the results of these tests are highly reliable, discordant results, including inaccurate sex prediction, may occur due to placental, maternal, or mosaicism or neoplasm; vanishing twin; prior maternal organ transplant; or other causes. These tests are screening tests and not diagnostic; they do not replace the accuracy and precision of diagnosis with CVS or amniocentesis. A patient with a positive test result should be referred for genetic counseling and offered invasive diagnosis for confirmation of test results.[5] The results of this testing, including the benefits and limitations, should be discussed with a qualified healthcare provider. management decisions, including termination of the , should not be based on the results of these tests alone. The healthcare provider is responsible for the use of this information in the management of their patient. Sex chromosomal aneuploidies are not reportable for known multiple gestations. A negative result does not ensure an unaffected nor does it exclude the possibility of other chromosomal abnormalities or defects which are not a part of these tests. An uninformative result may be reported, the causes of which may include, but are not limited to, insufficient sequencing coverage, noise or artifacts in the region, amplification or sequencing bias, or insufficient fraction. These tests are not intended to identify pregnancies at risk for neural tube defects or ventral wall defects. Testing for whole chromosome abnormalities (including sex chromosomes) and for subchromosomal abnormalities could lead to the potential discovery of both and maternal genomic abnormalities that could have major, minor, or no, clinical significance. Evaluating the significance of a positive or a non-reportable result may involve both invasive testing and additional studies on the mother. Such investigations may lead to a diagnosis of maternal chromosomal or subchromosomal abnormalities, which on occasion may be associated with benign or malignant maternal neoplasms. These tests may not accurately identify triploidy, balanced rearrangements, or the precise location of subchromosomal duplications or deletions; these may be detected by diagnosis with CVS or amniocentesis. The ability to report results may be impacted by maternal BMI, maternal weight, maternal systemic lupus erythematosus (SLE) and/or by certain pharmaceutical agents such as low molecular weight heparin (for example: Lovenox(R), Xaparin(R), Clexane(R) and Fragmin(R)). Performed By: #### M AT21 ####[facility] LABCLIA [id number] [place] [address] Monosomy X risk Dosage of chromosome-specific cfDNA Ql (Plasma cell-free+WBC DNA) [Interp] Not detected Normal [facility] Comment on above: Order Comment: Speci men Type: BLOOD SPECIMENOrdering Facility: [facility] Address: [address] [place] [address] Performed By: #### M AT21 ####[facility]CLIA [id number] [place] [address] NEGATIVE PREDICTIVE VALUE Note Normal [facility] Comment on above: Order Comment: Speci men Type: BLOOD SPECIMENOrdering Facility: [facility] Address: [address] [place] [address] Result Comment: The Negative Predictive Value (NPV) for trisomy 21, 18, and 13 is greater than 99%. The NPV for SCA and ESS cannot be calculated as SCA and ESS are only reported when an abnormality is detected. Performed By: #### M AT21 ####[facility] LABCLIA [id number] [place] [address] PERFORMANCE CHARACTERISTICS Note Normal [facility] Comment on above: Order Comment: Mich martinez Type: BLOOD SPECIMENOrdering Facility: [facility] Address: [address], [place] [address] Result Comment: ! Sex ! Accuracy: 99.4% ! ! ! ! Region (associated syndrome) ! Est. Sens# ! Est. Spec ! ! ! ! Trisomy 21 (Down Syndrome) ! 99.1% ! 99.9% ! ! ! ! Trisomy 18 (Ortega Syndrome) ! >99.9% ! 99.6% ! ! ! ! Trisomy 13 (Patau Syndrome) ! 91.7% ! 99.7% ! ! ! ! Sex Chromosome Aneuploidies## ! 96.2% ! 99.7% ! ! ! * As reported in ISCA database nstd37 [https://www.ncbi.nlm.nih.gov/dbvar/studies/nstd37/ ] # Estimated Sensitivity. Sensitivity estimated across the observed size distribution of each syndrome [per ISCA database nstd37] and across the range of fractions observed in routine clinical NIPT. Actual sensitivity can also be influenced by other factors such as the size of the event, total sequence counts, amplification bias, or sequence bias. ## Alfaro gestation only. Performed By: #### M AT21 ####[facility] LABCLIA [id number] [place] [address] POSITIVE PREDICTIVE VALUE N/A Normal [facility] Comment on above: Order Comment: Mich martinez Type: BLOOD SPECIMENOrdering Facility: [facility] Address: [address] [place] [address] Performed By: #### M AT21 ####[facility] LABCLIA [id number] [place] [address] Reference Lab Test Method Comment Normal [facility] Comment on above: Order Comment: Mich martinez Type: BLOOD SPECIMENOrdering Facility: [facility] Address: [address] [place] [address] Result Comment: See Notes Circulating cell-free DNA was purified from the plasma component of maternal blood. The extracted DNA was then converted into a genomic DNA library for aneuploidy analysis of chromosomes 21, 18, and 13 via next generation sequencing.[1] Optional findings based on the test order include sex chromosome aneuploidy (SCA)[2], and enhanced sequencing series (ESS)[3], which will only be reported on as an additional finding when an abnormality is detected. SCA testing includes information on X and Y representation, while ESS testing includes deletions in selected regions (22q, 15q, 11q, 8q, 5p, 4p, 1p) and trisomy of chromosomes 16 and 22. Performed By: #### M AT21 ####[facility]CLIA [id number] [place] [address] Service comment (Unsp spec) [Interp] Comment Normal [facility] Comment on above: Order Comment: Speci men Type: BLOOD SPECIMENOrdering Facility: [facility] Address: [address] [place] [address] Result Comment: See Notes [employer] is a subsidiary of [[employer], using the brand [employer]. This test was developed and its performance characteristics determined by [employer]. It has not been cleared or approved by the Food and Drug Administration. This laboratory is certified under the Clinical Laboratory Improvement Amendments (CLIA) as qualified to perform high complexity clinical laboratory testing and accredited by the [employer] (CAP). If there is future clinical need for adding MaterniT GENOME testing, this specimen will be available until term. [facility] samples will not be retained beyond 60 days. [facility] patients will have to send a new sample for re-sequencing ([facility] Test Code: 832828). Performed By: #### M AT21 ####[facility] LABCLIA [id number] [place] [address] Sex Dosage of chromosome-specific cfDNA Nom (cfDNA) Comment Normal [facility] Comment on above: Order Comment: Speci men Type: BLOOD SPECIMENOrdering Facility: [facility] Address: [address] [place] [address] Result Comment: Cons istent with Female Performed By: #### M AT21 ####[facility]CLIA [id number] [place] [address] Test performance information Jame (Unsp spec) Comment Normal [facility] Comment on above: Order Comment: Speci men Type: BLOOD SPECIMENOrdering Facility: [facility] Address: [address] [place] [address] Result Comment: The performance characteristics of the MaterniT(R) 21 PLUS laboratory-developed test (LDT) have been determined in a clinical validation study with women at increased risk for chromosomal aneuploidy.[1-4] Performed By: #### M AT21 ####[facility]CLIA [id number] [place] [address] Trisomy 13 risk Dosage of chromosome-specific cfDNA Ql (cfDNA) [Interp] Negative Normal [facility] Comment on above: Order Comment: Speci men Type: BLOOD SPECIMENOrdering Facility: [facility] Address: [address] [place] [address] Performed By: #### M AT21 ####[facility]CLIA [id number] [place] [address] Trisomy 18 risk Dosage of chromosome-specific cfDNA Ql (Plasma cell-free+WBC DNA) [Interp] Negative Normal [facility] Comment on above: Order Comment: Speci juan Type: BLOOD SPECIMENOrdering Facility: [facility] Address: [address] [place] [address] Performed By: #### M AT21 ####[facility] LABCLIA [id number] [place] [address] RUBELLA IGG ANTIBODYon 09-11 RUBELLA IGG AB, QUAL Positive Normal Positive [facility] Comment on above: Order Comment: Sharroni juan Type: BLOOD SPECIMENOrdering Facility: [facility] Address: [address] [place] [address] Result Comment: The result suggests recent or past exposure to Rubella virus or history of Rubella vaccination. Positive result may also be seen due to presence of passively-transferred antibodies. Please correlate with patient's history. Performed By: #### R UBIGG ####[facility] LABCLIA [id number] [place] [address] [place] Reagin and Treponema pallidu m IgG and IgM [Interp]on 09-11-2024 T. pallidum IgG+IgM IA Ql (S) Non-Reactive Normal Nonreactive [facility] Comment on above: Order Comment: Speci men Type: BLOOD SPECIMEN [facility] Facility: [facility] Address: [address] [place] [address] Performed By: #### 5 195-3, 87981-6, 91349-3 #### [facility] CLIA [id number] [address] [place] [address] [place] Reagin+T pallidum IgG+IgM Se rPl-Impon 09-11-2024 Reagin and Treponema pallidum IgG and IgM [Interp] Cannot exclude recent Treponemal infection if specimen collected within 7-10 days after appearance of suspect lesions or 2-3 weeks after an exposure. Clinical correlation is required. Normal [facility] Comment on above: Order Comment: Speci men Type: BLOOD SPECIMEN [facility] Facility: [facility] Address: [address] [place] [address] Performed By: #### 5 195-3, 32346-8, 34868-8 #### [facility] CLIA [id number] [address] [place] [address] [place] TYPE + SCREEN PRENATALon ABO O Normal [facility] Comment on above: Order Comment: Speci men Type: BLOOD SPECIMEN [facility] Facility: [facility] Address: [address] [place] [address] Performed By: #### 5 195-3, 22911-2, 72966-1 #### [facility] CLIA [id number] [address] [place] [address] [place] Rh Nom (Bld) Negative Normal [facility] Comment on above: Order Comment: Speci men Type: BLOOD SPECIMEN [facility] Facility: [facility] Address: [address] [place] [address] Performed By: #### 5 195-3, 52699-7, 39953-5 #### [facility] CLIA [id number] [address] [place] [address] [place] TYPE AND SCREEN EXPIRATION 09/14/2024 23:59 Normal [facility] Comment on above: Order Comment: Speci men Type: BLOOD SPECIMEN [facility] Facility: [facility] Address: [address] [place] [address] Performed By: #### 5 195-3, 32928-0, 27050-5 #### [facility] CLIA [id number] [address] [place] [address] [place] Bacteria Ur Culton 5 Bacteria identified Cx Nom (U) ORGANISM ID: 1 10,000 -<50,000 CFU/ml Normal urogenital david Normal [facility] Comment on above: Performed By: #### 6 30-4 ####[facility] LABCLIA [id number] [place] [address] [place] UA DIP, URINE (POC)on 2024 BILIRUBIN UA (POCT) Negative Negative [facility] CLARITY UA (POCT) Clear [facility] COLOR UA (POCT) Light yellow [facility] GLUCOSE UA (POCT) Negative Negative mg/dL [facility] Hemoglobin Ql (U) Trace-intact Abnormal Negative [facility] Interpretation and review of laboratory results Abnormal [facility] KETONE UA (POCT) Negative Negative mg/dL [facility] LEUKOCYTES UA (POCT) Negative Negative [facility] NITRITE UA (POCT) Negative Negative [facility] PH UA (POCT) 5.5 4.5 - 8.0 [facility] Protein Ql (U) Negative Negative mg/dL [facility] SPECIFIC GRAVITY UA (POCT) 1.01 1.005 - 1.030 [facility] UROBILINOGEN UA (POCT) 0.2 Normal E.U./d L [facility] Location:[facility], [address], [place], [address] [facility] Ricardo 09-04-2024 ARSH Telephone (OBGYW) ---- GABE VIERA ([id number]) 1995 F ONOFRE Date Time Provider Department 09/04/24 [place]ILLAL[place]O During your visit today, we recorded the following information about you: Rita Chairez RN 09/04/2024 1:26 PM Signed 12w4d Patient calling with update after going to [place] ER yesterday. She thought she had UTI, but was told urine was negative and to f/u with OB provider. No u/s was done. Stated pain has lessened since yesterday, but she is still having constant pressure feeling like her bladder is full. She is having some brown discharge still from when she had bleeding on 08/29 (she went to [facility] ER for this and did have u/s then). No cramping, but does still have some discomfort with moving especially that causes a cramp like feeling at times. Please advise. KATIE Wright Jessica, APRN.CNM 09/04/2024 1:41 PM Signed Can schedule for appointment this week. Get both ED records. Thanks, Brooklyn Villalpando APRN.Klarissa Payne RN 09/04/2024 2:28 PM Signed ER records are in [facility]. Appointment scheduled for tomorrow with RR. Klarissa Beckett RN Allergies As of Date: 09/04/2024 Noted Allergy Reaction AMOXICILLIN 07/21/2014 7 - Swelling PENICILLINS 07/21/2014 7 - Swelling Date Reviewed: 09/03/2024 Reviewed by: Amparo Blake RN - Fully Assessed Reason for Visit: ER F/U [41] Prescriptions as of 09/04/2024 - aspirin, enteric coated (ECOTRIN LOW STRENGTH) 81 mg EC tablet Take 1 tablet by mouth once daily. - Vitamin w/ Iron (PNV NO. 72, W/ IRON,) 27 mg iron- 1 mg Take 1 tablet by mouth once daily. Meds Comments as of 12/14/2015: Pt states she takes control pill, unable to recall which one Problem List As Of Date 09/04/2024 Noted Resolved Use of nicotine during (HCC) [O99.330]08/01/2024 Vaginal discharge [N89.8] 08/01/2024 Encounter for supervision of high risk pregnanc*08/01/2024 Depression with anxiety [F41.8] 08/01/2024 Nausea and vomiting during (HCC) [O21*08/01/2024 Fall [W19.XXXA] 08/01/2024 Penicillin allergy [Z88.0] 08/01/2024 Encounter Status:Closed by KLARISSA BECKETT on 09/04/24 Normal [facility] ED NOTEon 09-03-2024 ED NOTE HNO ID: [id number] Author: SYLVIA SOOD, KATIE Service: ? Author Type: Registered Nurse Type: ED Notes Filed: 09/04/2024 18:40 Note Text: Patient Call Back Information How are you doing ? better Did we appropriately manage your pain? Yes Did you understand your discharge instructions? Yes Did you get your prescriptions filled? Were you able to make a follow-up appointment with your physician? Yes Were you comfortable during your stay here? Yes Did a member of the ER nursing team round on you during your visit? Yes You will receive a patient satisfaction survey in the mail in the nest 2 weeks, please take the time to fill out the survey as your input from your ER visit is very important to us. Yes Can we do anything else to help you? No Normal [facility] ED NOTE HNO ID: [id number] Author: AMPARO BLAKE, KATIE Service: ? Author Type: Registered Nurse Type: ED Notes Filed: 09/03/2024 20:54 Note Text: Pt c/o pelvic and back pain that started this morning. States does not feel like normal uti pain. Pt states she is 12w . OB US last . States she is also having throat and ear pain. Normal [facility] ED PROV NOTEon 09-03-2024 ED PROV NOTE HNO ID: [id number] Author: VON LOZANO MD Service: Emergency Medicine Author Type: Physician Type: ED Provider Notes Filed: 09/03/2024 22:51 Note Text: ED Provider Note Patient Name: Gabe Viera : 1995 SERVICE DATE: 09/03/24 History Patient presents with: Abdominal Pain: 12w Pelvic Pain: Back Pain Gabe Viera is a 28 year old female with history of 12-week intrauterine by ultrasound who presents with lower abdominal pain. Patient has taken nothing with no relief of symptoms. - Symptom began this morning. - Severity: mild - Timing: constant - Quality: dull - Pain is exacerbated by movement. Pain radiates to lumbar back. - Pain is not exacerbated by inspiration. - Symptoms are associated with dysuria also complaining of sore throat and bilateral ear pain. - Symptoms are not associated with vaginal bleeding. - Improved by rest. - Patient's G1, P0 Ab0 12 weeks she has had ultrasound by OB with a confirmed IUP. No vaginal bleeding but she has had some low back pain today and some pelvic discomfort does not feel that she has dysuria like she would have a UTI but there is some discomfort when she urinates PAST MEDICAL HISTORY Diagnosis Date Anxiety Asthma (HCC) childhood Bronchitis Depression Personality disorder (HCC) PAST SURGICAL HISTORY Procedure Laterality Date NONE FAMILY HISTORY Problem Relation Age of Onset No Known Problems Mother No Known Problems Father Diabetes Maternal Grandmother Ovarian cancer Paternal Grandmother No Known Problems Half-brother No Known Problems Half-sister No Known Problems Half-sister No Known Problems Half-sister No Known Problems Half-sister Diabetes Other Social History Tobacco Use Smoking status: Former Current packs/day: 1.00 Types: Cigarettes Smokeless tobacco: Never Vaping Use Vaping status: current everyday user Substances: Nicotine, Flavoring Substance and Sexual Activity Alcohol use: No Drug use: No Sexual activity: Yes Partners: Male ALLERGIES Allergen Reactions Amoxicillin Swelling Penicillins Swelling Review of Systems Constitutional: Negative for chills and fever. HENT: Positive for ear pain and sore throat. Negative for rhinorrhea. Respiratory: Negative for cough and shortness of breath. Gastrointestinal: Negative for nausea and vomiting. Genitourinary: Positive for flank pain. Negative for difficulty urinating, dysuria and vaginal bleeding. Musculoskeletal: Positive for back pain. Negative for myalgias. Skin: Negative for rash. Allergic/Immunologi c: Negative for environmental allergies, food allergies and immunocompromised state. Physical Exam Vitals [09/03/242054] BP Pulse Temp Temp src Resp SpO2 Weight Height 105/66 81 36.2 ?C (97.2 ?F) Temporal 16 100 % 65.3 kg (144 lb) -- Physical Exam Vitals and nursing note reviewed. Constitutional: General: She is not in acute distress. Appearance: She is well-developed. She is not ill-appearing, toxic-appearing or diaphoretic. HENT: Head: Normocephalic and atraumatic. Mouth/Throat: Mouth: Mucous membranes are moist. Pharynx: No oropharyngeal exudate. Comments: Erythema and mild enlargement of tonsils TMs dull middle ear effusion but no infection. Eyes: General: No scleral icterus. Extraocular Movements: Extraocular movements intact. Pulmonary: Effort: Pulmonary effort is normal. No respiratory distress. Abdominal: General: There is no distension. There are no signs of injury. Palpations: Abdomen is soft. Tenderness: There is no abdominal tenderness. There is no right CVA tenderness or left CVA tenderness. Skin: General: Skin is warm and dry. Capillary Refill: Capillary refill takes less than 2 seconds. Findings: No rash. Neurological: General: No focal deficit present. Mental Status: She is alert and oriented to person, place, and time. Psychiatric: Mood and Affect: Mood normal. Mood is not anxious or depressed. Behavior: Behavior normal. Diagnostic Testing ED Labs Ordered and Reviewed URINALYSIS (WITH MICROSCOPIC) WITH CULTURE IF INDICATED - Abnormal; Notable for the following components: Result Value Ref Range Bilirubin, Urine 1+ (*) Negative Specific [place], Ur >=1.030 (*) 1.005 - 1.030 Hemoglobin/Blood,Ur Trace (*) Negative Protein, Urine Trace (*) Negative Bacteria Few (*) None Seen /HPF All other components within normal limits GROUP A STREPTOCOCCUS BY PCR - Normal Procedures ED Course / Clinical Impression Clinical Impressions as of 09/03/245 Abdominal pain during in first trimester (HCC) Sore throat MDM / Disposition / Plan Urinalysis is negative for any acute infection strep throat testing is negative. She has some middle ear effusion on exam I think she is safe to take some Claritin for this. She has had recent ultrasound imaging has a confirmed IUP she lovelace (more content not included)... Normal [facility] S pyo DNA Throat Ql JOSEFA+prob levi 09-03-2024 S. pyogenes DNA JOSEFA+probe Ql (Throat) Not detected Normal Not detected [facility] Comment on above: Order Comment: Speci men Type: SWAB Ordering Facility: [facility] Address: [address] [place] [address] Performed By: #### 6 0489-2 #### [facility] CLIA [id number] [address] [place] [address] [facility] Urinalysis complete panel (U )on 09-03-2024 Bacteria LM.HPF (Urine sed) [#/Area] Few Abnormal None Seen [facility] Comment on above: Order Comment: Speci men Type: URINE SPECIMEN Ordering Facility: [facility] Address: [address] [place] [address] Performed By: #### 2 4356-8 #### [facility] CLIA [id number] [address] [place] [address] Bilirubin Ql (U) 1+ Abnormal Negative [facility] Comment on above: Order Comment: Speci men Type: URINE SPECIMEN Ordering Facility: [facility] Address: [address] [place] [address] Result Comment: Sugg est correlation with clinical findings and serum bilirubin if clinically indicated. Performed By: #### 2 4356-8 #### [facility] CLIA [id number] [address] [place], [place] [id number] [facility] Clarity (Unsp spec) Clear Normal Clear [facility] Comment on above: Order Comment: Speci men Type: URINE SPECIMEN Ordering Facility: [facility] Address: [address] [place] [address] Performed By: #### 2 4356-8 #### [facility] CLIA [id number] [address] [place] [address] [facility] Color (U) Yellow Normal Yellow [facility] Comment on above: Order Comment: Speci men Type: URINE SPECIMEN Ordering Facility: [facility] Address: [address] [place] [address] Performed By: #### 2 4356-8 #### [facility] CLIA [id number] [address] [place] [address] [facility] [place] Epithelial cells LM.HPF (Urine sed) [#/Area] Few Normal [facility] Comment on above: Order Comment: Speci men Type: URINE SPECIMEN Ordering Facility: [facility] Address: [address] [place] [address] Performed By: #### 2 4356-8 #### [facility] CLIA [id number] [address] [place] [address] [facility] Glucose Test strip (U) [Mass/Vol] Negative Normal Negative [facility] Comment on above: Order Comment: Speci men Type: URINE SPECIMEN Ordering Facility: [facility] Address: [address] [place] [address] Performed By: #### 2 4356-8 #### [facility] CLIA [id number] [address] [place] [address] [facility] Hemoglobin Ql (U) Trace Abnormal Negative [facility] Comment on above: Order Comment: Speci men Type: URINE SPECIMEN Ordering Facility: [facility] Address: [address] [place] [address] Performed By: #### 2 4356-8 #### [facility] CLIA [id number] [address] [place] [address] [place] Ketones Ql (U) Negative Normal Negative [facility] Comment on above: Order Comment: Speci men Type: URINE SPECIMEN Ordering Facility: [facility] Address: [address] [place] [address] Performed By: #### 2 4356-8 #### [facility] CLIA [id number] [address] [place] [address] [place] Leukocyte esterase Test strip Ql (U) Negative Normal Negative [facility] Comment on above: Order Comment: Speci men Type: URINE SPECIMEN Ordering Facility: [facility] Address: [address] [place] [address] Performed By: #### 2 4356-8 #### [facility] CLIA [id number] [address] [place] [address] [place] Nitrite Ql (U) Negative Normal Negative [facility] Comment on above: Order Comment: Speci men Type: URINE SPECIMEN Ordering Facility: [facility] Address: [address] [place] [address] Performed By: #### 2 4356-8 #### [facility] CLIA [id number] [address] [place] [address] [place] pH (U) 5.5 [pH] Normal 5.0-8.0 [facility] Comment on above: Order Comment: Speci men Type: URINE SPECIMEN Ordering Facility: [facility] Address: [address] [place] [address] Performed By: #### 2 4356-8 #### [facility] CLIA [id number] [address] [place] [address] [place] Protein (U) [Mass/Vol] Trace Abnormal Negative [facility] Comment on above: Order Comment: Speci men Type: URINE SPECIMEN Ordering Facility: [facility] Address: [address] [place] [address] Performed By: #### 2 4356-8 #### [facility] CLIA [id number] [address] [place] [address] [place] [facility] RBC LM.HPF (Urine sed) [#/Area] 0-3 /HPF Normal 0-3 /HPF [facility] Comment on above: Order Comment: Speci men Type: URINE SPECIMEN Ordering Facility: [facility] Address: [address] [place] [address] Performed By: #### 2 4356-8 #### [facility] CLIA [id number] [address] [place] [address] [place] Specific gravity (U) [Rel density] >=1.030 High 1.005-1.030 [facility] Comment on above: Order Comment: Speci men Type: URINE SPECIMEN Ordering Facility: [facility] Address: [address] [place] [address] Performed By: #### 2 4356-8 #### [facility] CLIA [id number] [address] [place] [address] [facility] Urobilinogen Ql (U) 0.2 EU/dL Normal 0.2-1.0 EU/dL [facility] Comment on above: Order Comment: Speci men Type: URINE SPECIMEN Ordering Facility: [facility] Address: [address] [place] [address] Performed By: #### 2 4356-8 #### [facility] CLIA [id number] [address] [place] WBC LM.HPF (Urine sed) [#/Area] 0-5 /HPF Normal 0-5 /HPF [facility] Comment on above: Order Comment: Speci men Type: URINE SPECIMEN Ordering Facility: [facility] Address: [address] [place] [address] Performed By: #### 2 4356-8 #### [facility] CLIA [id number] [address] [place] [address] [facility] Urine Cultureon 08-31-2024 URC Culture exhibits no growth. Normal [facility] Comment on above: Performed By: #### M 100.2200 #### [facility] [address] [place], [address] [facility] GABE VIERA ([id number]) 1995 F [facility] Date Time Provider Department 08/30/24 SUNITHA AGUILAR During your visit today, we recorded the following information about you: Rita Chairez, RN 08/30/2024 3:52 PM Signed 11w6d Patient went to [facility] ER yesterday for bleeding in . Was told everything looked fine and was discharged. Records in care everywhere and u/s report copied below. She only notices small amount of blood with wiping only so far today. No cramping. Advised to continue to monitor and if heavier flow returns or develops pain to return to ER over the weekend. Her next visit is on 09/11/24 for u/s and OB appt. Asking if she needs seen before that? Rita Chairez RN FINDINGS: Comments: Transvaginal imaging was performed Single live intrauterine fundal portion of the uterus with hearttones 174 beats per minute. No sandip-sac hemorrhage identified. Estimated gestational age by ultrasound 11 weeks and 3 days, TORRI 03/18/2025 Estimated gestational age by LMP 11 weeks 6 days, TORRI 03/15/2025 4 mm yolk sac. The uterus measures 11.4 x 9.8 x 7.1 cm. Cervix appears closed. The right ovary measures 2.8 x 2.9 x 1.4 cm and appears within limits. The left ovary measures 2.5 x 2.4 x 1.7 cm and appears within limits. No evidence of adnexal mass. No free fluid seen. Sunitha Aguilar APRN.EZEQUIEL 08/30/2024 4:22 PM Signed Patient is fine to monitor at home with knowledge of bleeding precautions and when to return to ED. Keep appointment. Thank you. Sunitha Aguilar APRN.Rita Gibson RN 08/30/2024 4:24 PM Signed Patient notified. Rita Chairez RN Allergies As of Date: 08/30/2024 Noted Allergy Reaction AMOXICILLIN 07/21/2014 7 - Swelling PENICILLINS 07/21/2014 7 - Swelling Date Reviewed: 08/22/2024 Reviewed by: Freda Santillan APRN.MED DIR - Fully Assessed Reason for Visit: ER F/U [41] OB Bleeding [Other] Prescriptions as of 08/30/2024 - aspirin, enteric coated (ECOTRIN LOW STRENGTH) 81 mg EC tablet Take 1 tablet by mouth once daily. - Vitamin w/ Iron (PNV NO. 72, W/ IRON,) 27 mg iron- 1 mg Take 1 tablet by mouth once daily. Meds Comments as of 12/14/2015: Pt states she takes control pill, unable to recall which one Problem List As Of Date 08/30/2024 Noted Resolved Use of nicotine during (HCC) [O99.330]08/01/2024 Vaginal discharge [N89.8] 08/01/2024 Encounter for supervision of high risk pregnanc*08/01/2024 Depression with anxiety [F41.8] 08/01/2024 Nausea and vomiting during (HCC) [O21*08/01/2024 Fall [W19.XXXA] 08/01/2024 Penicillin allergy [Z88.0] 08/01/2024 Encounter Status:Closed by RITA CHAIREZ on 08/30/24 Normal [facility] Transvaginal w/Preg USon Transvaginal w/Preg US [facility] [address] [place], [place] [id number] Transvaginal w/Preg US MR#: [id number] Acct: [id number] Name: GABE VIERA Rep #: [id number] : 1995 F 28 From: Luis Boyce MD PCP: LAYLA Bartholomew Status: REG ER Study: Transvaginal w/Preg US Date of Exam: 08/30/24 Exam# [id number] Ordering Dr: Carlos Bliss DO PROCEDURE: TRANSVAGINAL W/PREG US 08/30/2024 REASON FOR EXAM: VAG BLEEDING FIRST TRIMESTER TECHNIQUE: Transvaginal 1st trimester ultrasound FINDINGS: Comments: Transvaginal imaging was performed Single live intrauterine fundal portion of the uterus with heart tones 174 beats per minute. No sandip-sac hemorrhage identified. Estimated gestational age by ultrasound 11 weeks and 3 days, TORRI 03/18/2025 Estimated gestational age by LMP 11 weeks 6 days, TORRI 03/15/2025 4 mm yolk sac. The uterus measures 11.4 x 9.8 x 7.1 cm. Cervix appears closed. The right ovary measures 2.8 x 2.9 x 1.4 cm and appears within limits. The left ovary measures 2.5 x 2.4 x 1.7 cm and appears within limits. No evidence of adnexal mass. No free fluid seen. US/Transvaginal w/Preg US IMPRESSION: Single live intrauterine fundal portion of the uterus with heart tones 174 beats per minute. Reading Location: [id number] CC: LAYLA Morgan; Dr. Carlos Bliss DO [employer]: Signed Normal [facility] hCG Titer Quant., Serumon HCG QUANT. 02800 mIU/mL High <9 non-preg [facility] Comment on above: Result Comment: Gest ational Age 0.2-1 Week: 5-50 mIU/mL 1-2 Weeks: 50-500 mIU/mL 2-3 Weeks: 100-5000 mIU/mL 3-4 Weeks: 500-10,000 mIU/mL 4-5 Weeks:1000-50,000 mIU/mL 5-6 Weeks: 10,000-100,000 mIU/mL 6-8 Weeks: 15,000-200,000 mIU/mL 2-3 Months:10,000-100,000 mIU/mL Performed By: #### B 882-1, L700.8000 #### [facility] [address] [place], [address] [id number] 08-29-2024 ABO and Rh group Nom (Bld) Blood group O Rh(D) negative Normal [facility] Comment on above: Performed By: #### B 882-1, L700.8000 #### [facility] [address] [place], [address] Basic Metabolic Profile (BMP )on 08-29-2024 BUN/CRE 10.5 RATIO Normal 10-20 [facility] Comment on above: Performed By: #### L 500.2500, L100.0100 ####[facility] [address] [place], [address] Calcium [Mass/Vol] 8.9 mg/dL Normal 7.6-11.0 [facility] Comment on above: Performed By: #### L 500.2500, L100.0100 ####[facility] [address] [place], [address] Chloride [Moles/Vol] 102 mmol/L Normal 98-108 [facility] Comment on above: Performed By: #### L 500.2500, L100.0100 ####[facility] [address] [place], [address] CO2 [Moles/Vol] 23.1 mmol/L Normal 21.0-32.0 [facility] Comment on above: Performed By: #### L 500.2500, L100.0100 ####[facility] [address] [place], [address] Creatinine [Mass/Vol] 0.62 mg/dL Low 0.70-1.20 [facility] Comment on above: Performed By: #### L 500.2500, L100.0100 ####[facility] [address] [place], [address] ECRCL 129.75 ml/min Normal 50-250 [facility] Comment on above: Performed By: #### L 500.2500, L100.0100 ####[facility] [address] [place], [address] GAP 10 Normal 5-15 [facility] Comment on above: Performed By: #### L 500.2500, L100.0100 ####[facility] [address] [place], [address] GFR/1.73 sq M.predicted among non-blacks MDRD (S/P/Bld) [Vol rate/Area] 126 mL/min/{1.73_m2} Normal >60 [facility] Comment on above: Result Comment: mL/m in/1.73m2 CKD-EPI Creatinine Equation (2020) Performed By: #### L 500.2500, L100.0100 ####[facility] [address] [place], [address] Glucose [Mass/Vol] 83 mg/dL Normal 70-99 [facility] Comment on above: Performed By: #### L 500.2500, L100.0100 ####[facility] [address] [place], [address] Potassium [Moles/Vol] 3.8 mmol/L Normal 3.3-5.1 [facility] Comment on above: Performed By: #### L 500.2500, L100.0100 ####[facility] [address] [place], [address] Sodium [Moles/Vol] 135 mmol/L Normal 133-145 [facility] Comment on above: Performed By: #### L 500.2500, L100.0100 ####[facility] [address] [place], [address] Urea nitrogen [Mass/Vol] 7 mg/dL Normal 4-19 [facility] Comment on above: Performed By: #### L 500.2500, L100.0100 ####[facility] [address] [place], [address] CBC W/Diff, Automatedon 05-2 2-2024 Absolute Lymph 3.48 X10 3/uL Normal 0.83-4.51 [facility] Comment on above: Performed By: #### L 500.2500, L100.0100 #### [facility] [address] [place], [address] Absolute Neut 8.1 X10 3/uL High 2.0-7.7 [facility] Comment on above: Performed By: #### L 500.2500, L100.0100 #### [facility] [address] [place], [address] Basophils/100 WBC (Bld) 0.3 % Normal 0-1 [facility] Comment on above: Performed By: #### L 500.2500, L100.0100 #### [facility] [address] [place], [address] Eosinophils/100 WBC (Bld) 1.1 % Normal 0-5 [facility] Comment on above: Performed By: #### L 500.2500, L100.0100 #### [facility] [address] [place], [address] Erythrocyte distribution width (RBC) [Ratio] 12.9 % Normal 11.6-14.6 [facility] Comment on above: Performed By: #### L 500.2500, L100.0100 #### [facility] [address] [place], [address] Hematocrit (Bld) [Volume fraction] 35.6 % Low 37-47 [facility] Comment on above: Performed By: #### L 500.2500, L100.0100 #### [facility] [address] [place], [address] Hemoglobin (Bld) [Mass/Vol] 12.2 g/dL Normal 12.0-15.0 [facility] Comment on above: Performed By: #### L 500.2500, L100.0100 #### [facility] [address] [place], [address] IG% 0.200 Normal 0.0-0.9 [facility] Comment on above: Result Comment: IG% - Immature Granulocytes (promyelocytes, myelocytes and metamyelocytes) > 1% indicates that a LEFT SHIFT is Present. Performed By: #### L 500.2500, L100.0100 #### [facility] [address] [place], [address] Lymphocytes/100 WBC (Bld) 28.0 % Normal 19-41 [facility] Comment on above: Performed By: #### L 500.2500, L100.0100 #### [facility] [address] [place], [address] MCH (RBC) [Entitic mass] 31.9 pg Normal 27.0-32.0 [facility] Comment on above: Performed By: #### L 500.2500, L100.0100 #### [facility] [address] [place], [address] MCHC (RBC) [Mass/Vol] 34.3 g/dL Normal 32-36 [facility] Comment on above: Performed By: #### L 500.2500, L100.0100 #### [facility] [address] [place], [address] MCV (RBC) [Entitic vol] 93.2 fL Normal 81-99 [facility] Comment on above: Performed By: #### L 500.2500, L100.0100 #### [facility] [address] [place], [address] Monocytes/100 WBC (Bld) 5.0 % Normal 0-10 [facility] Comment on above: Performed By: #### L 500.2500, L100.0100 #### [facility] [address] [place], [address] Neutrophils/100 WBC (Bld) 65.4 % Normal 47-70 [facility] Comment on above: Performed By: #### L 500.2500, L100.0100 #### [facility] [address] [place], [address] Nucleated RBC (Bld) [#/Vol] 0 10*3/uL Normal 0-5 [facility] Comment on above: Performed By: #### L 500.2500, L100.0100 #### [facility] [address] [place], [address] Platelet mean volume (Bld) [Entitic vol] 10.0 fL Normal 6.2-12.0 [facility] Comment on above: Performed By: #### L 500.2500, L100.0100 #### [facility] [address] [place], [address] Platelets (Bld) [#/Vol] 242 10*3/uL Normal 150-450 [facility] Comment on above: Performed By: #### L 500.2500, L100.0100 #### [facility] [address] [place], [address] RBC (Bld) [#/Vol] 3.82 10*6/uL Low 4.2-5.4 [facility] Comment on above: Performed By: #### L 500.2500, L100.0100 #### [facility] [address] [place], [address] RDW SD 44.1 fl High 35.1-43.9 [facility] Comment on above: Performed By: #### L 500.2500, L100.0100 #### [facility] [address] [place], [address] WBC (Bld) [#/Vol] 12.4 10*3/uL High 4.4-11.0 [facility] Comment on above: Performed By: #### L 500.2500, L100.0100 #### [facility] [address] [place], [address] Emergency Department Summary on 08-29-2024 Emergency Department Summary [facility] Medical Records Department [address] [place] [address] Emergency Department Summary 08/29/24 MR#: [id number] Acct: [id number] Name: GABE VIERA Rep #: [id number] : 1995 28 From: Carlos Bliss DO PCP: LAYLA Bartholomew Status:REG ER Location: ED HPI HPI - Female History of Present Illness Chief Complaint: Vag Bld, Preg Narrative Narrative: Patient is a 28-year-old female with no known significant past medical history who presented to the emergency department the chief complaint of brown spotting. Patient states that she about a week ago started having brown discharge states that she followed up with her DIAPER FOLDER in outpatient setting they did an ultrasound that showed a intrauterine and ultimately sent her home. States that for the past few days she has had cramping in the lower portion of her abdomen noted that today while at work she had bright red blood and more brown discharge and her usual therefore she discussed with her mother and they decided to come here for the evaluation management. [facility] Medical History Contact with and (suspected) exposure to other viral communicable diseases Acute streptococcal pharyngitis COVID-19 URI (upper respiratory infection) Home Medications ???Medication ???Instructions ???Recorded ???Last Taken ???Type brompheniramine-pse udoephedrine-DM 10 ml PO Q4H PRN 12/06/22 Unknow n History 2 mg-30 mg-10 mg/5 mL oral syrup clindamycin HCl 300 mg capsule 300 mg PO Q8H 12/06/22 Unknown His tory methylprednisolone 4 mg tablets in See Rx Instructions PO PER PKG D IR 12/06/22 Unknown Rx a dose pack (Medrol (Landry)) #21 tabs norgestimate 0.25 mg-ethinyl 1 tab PO DAILY 12/06/22 Unknown Hi story estradiol 0.035 mg tablet ([place]-Linyah) Allergy/AdvReac Type Severity Reaction Status Date / Time amoxicillin Allergy Angioedema Verified 08/29/24 22:31 Penicillins (PCN) Allergy Angioedema Verified 08/29/24 22:31 Social History Smoking Status: Current every day smoker tobacco type: e-cigarettes alcohol intake: never ROS ROS ED ROS Narrative constitutional: Denies any fevers or chills Cardiovascular: Denies chest pain Respiratory: Denies shortness of breath Abdomen: Complains of abdominal cramping as noted above, states that she is constantly nauseous since getting this is not new denies vomiting : Complains of spotting as noted above denies any painful urination Neurological: Denies any numbness, wheeze, tingling Musculoskeletal: Denies back pain Skin: Denies any rashes or lesions EXAM Physical Exam Narrative Exam Narrative: General: Patient lying in bed rest comfortably. In acute distress Head: Atraumatic, normocephalic Eyes: PERRL bilateral, EOMI bilateral, no conjunctival injection noted Neck: Soft, supple, trach midline Cardiovascular: Regular in rhythm no murmurs gallops rubs noted Respiratory: Clear to auscultation bilaterally Abdomen: Soft, nondistended, nontender to palpation Extremities: +5/5 strength noted in the bilateral upper and lower extremities Neurological: Patient follow commands knew that she was at [facility] year is 2024 Skin: Warm, dry, intact no rashes lesions noted Const Vital Signs: 08/29/24 22:29 08/30/24 00:29 08/30/24 02:03 Temperature 98.2 F Temperature Source Oral Pulse Rate 72 67 65 Respiratory Rate 18 16 15 Blood Pressure 130/76 H 92/58 L 92/51 L Blood Pressure Mean 94 69 64 Pulse Ox 100 100 100 Oxygen Delivery Method Room Air Room Air Room Air 08/30/24 04:00 Temperature Temperature Source Pulse Rate 80 Respiratory Rate 18 Blood Pressure 99/63 Blood Pressure Mean 75 Pulse Ox 98 Oxygen Delivery Method Room Air MDM MDM MDM Narrative Medical decision making narrative: Patient is a 28-year-old female who presented to the emergency department with concern of vaginal spotting. On the differential diagnosis includes but not limited to missed , threatened miscarriage, UTI. Once workup is obtained reviewed she will be reevaluated. Patient's CBC was reviewed and showed a white count of 12,000, hemoglobin is 12.2, platelet count of 242. Patient sodium normal 135, potassium normal 3.8, creatinine was noted to be 0.62. Patient's quant level was 63,097. Patient urinalysis reviewed showed a negative nitrites 25 leuks with 1+ bacteria and 0-5 white cells this was sent for culture she was advised to follow-up on this with her DIAPER FOLDER. Multiple people attempted to obtain heart tones including we called OB team down and they were unable to do so since this was the case we ordered a transvaginal ultrasound wa (more content not included)... Normal [facility] Urinalysis, Completeon 08-29 BACTERIA 1+ /hpf Normal None Seen [facility] Comment on above: Order Comment: CLEAN CATCH Performed By: #### L 400.0001 ####[facility] [address] [place], [address] RBC 0-5 SEEN Normal 0-5 [facility] Comment on above: Order Comment: CLEAN CATCH Performed By: #### L 400.0001 ####[facility] [address] [place], [address] EPI,SQUAMOUS 5-10 SEEN Normal 5-10 [facility] Comment on above: Order Comment: CLEAN CATCH Performed By: #### L 400.0001 ####[facility] [address] [place], [address] WBC 0-5 SEEN Normal 0-5 [facility] Comment on above: Order Comment: CLEAN CATCH Performed By: #### L 400.0001 ####[facility] [address] [place], [address] Mucus Ql (Urine sed) 0 SEEN Normal [facility] Comment on above: Order Comment: CLEAN CATCH Performed By: #### L 400.0001 ####[facility] [address] [place], [address] BACTERIAL VAGINOSIS NAATon 0 - Lactobacillus crispatus+gasseri+jense tanvir + Gardnerella vaginalis + Atopobium vaginae rRNA JOSEFA+probe Ql (Vag fld) Not detected Normal Not detected [facility] Comment on above: Order Comment: Speci men Type: SWABOrdering Facility: [facility] Address: [address] [place] [address] Performed By: #### C VTV, BVAMP ####[facility] LABCLIA [id number] [place] [address] [place] YOUSUF/TRICHOMONAS NAATon 0 - C. glabrata RNA JOSEFA+probe Ql (Vag fld) Not detected Normal Not detected [facility] Comment on above: Order Comment: Speci men Type: SWABOrdering Facility: [facility] Address: [address] [place] [address] Performed By: #### C VTV, BVAMP ####[facility] LABIA [id number] [address] [place] Yousuf sp DNA JOSEFA+probe Ql (Vag fld) Not detected Normal Not detected [facility] Comment on above: Order Comment: Speci men Type: SWABOrdering Facility: [facility] Address: [address] [place] [address] Result Comment: The Yousuf species group target includes C. albicans, C. tropicalis, C. parapsilosis, and C. dubliniensis. Performed By: #### C VTV, BVAMP ####[facility] LABIA [id number] [address] [place] T. vaginalis DNA JOSEFA+probe Ql (Unsp spec) Not detected Normal Not detected [facility] Comment on above: Order Comment: Speci men Type: SWABOrdering Facility: [facility] Address: [address] [place] [address] Performed By: #### C VTV, BVAMP ####[facility] [id number] [address] [place] [facility] ---- GABE VIERA ([id number]) 1995 F [facility] Date Time Provider Department 08/21/24 FREDA SANTILLAN During your visit today, we recorded the following information about you: Klarissa Beckett, KATIE 08/21/2024 4:57 PM Signed 10w4d Patient called with c/o brown spotting since last night. Cramping pain rate of 4. Had a possible brown blood clot approximately 2 hours ago. Patient asking if she needs to be seen in ER. IUP seen on POCUS. Advised that we could bring her in to the office tomorrow since her bleeding is not red, heavy, and her pain is not severe. Patient agreeable. She was instructed to go to ER if those things occur. She is concerned for a missed AB and is scheduled for a visit tomorrow. Advised to call and cancel if she goes to ER for evaluation. DIEGO Beckett RN Allergies As of Date: 08/21/2024 Noted Allergy Reaction AMOXICILLIN 07/21/2014 7 - Swelling PENICILLINS 07/21/2014 7 - Swelling Date Reviewed: 08/15/2024 Reviewed by: Agustín Blackwell APRN.MED DIR - Fully Assessed Reason for Visit: Early OB Spotting [Other] Prescriptions as of 08/22/2024 - aspirin, enteric coated (ECOTRIN LOW STRENGTH) 81 mg EC tablet Take 1 tablet by mouth once daily. - Vitamin w/ Iron (PNV NO. 72, W/ IRON,) 27 mg iron- 1 mg Take 1 tablet by mouth once daily. Meds Comments as of 12/14/2015: Pt states she takes control pill, unable to recall which one Problem List As Of Date 08/21/2024 Noted Resolved Use of nicotine during (HCC) [O99.330]08/01/2024 Vaginal discharge [N89.8] 08/01/2024 Encounter for supervision of high risk pregnanc*08/01/2024 Depression with anxiety [F41.8] 08/01/2024 Nausea and vomiting during (HCC) [O21*08/01/2024 Fall [W19.XXXA] 08/01/2024 Penicillin allergy [Z88.0] 08/01/2024 Encounter Status:Closed by KLARISSA BECKETT on [facility]/22/[facility] AYLINGABE Xavier ([id number]) 1995 F [facility] Date Time Provider Department 08/21/24 FREDA SANTILLAN During your visit today, we recorded the following information about you: Osmani Juarez MA 08/21/2024 2:25 PM Signed Patients intermittent [facility] paperwork has been completed and faxed back to employer. Patient notified. Osmani Juarez MA Allergies As of Date: 08/21/2024 Noted Allergy Reaction AMOXICILLIN 07/21/2014 7 - Swelling PENICILLINS 07/21/2014 7 - Swelling Date Reviewed: 08/15/2024 Reviewed by: Agustín Blackwell APRN.MED DIR - Fully Assessed Reason for Visit: [facility] Paperwork [4185] Prescriptions as of 08/21/2024 - aspirin, enteric coated (ECOTRIN LOW STRENGTH) 81 mg EC tablet Take 1 tablet by mouth once daily. - Vitamin w/ Iron (PNV NO. 72, W/ IRON,) 27 mg iron- 1 mg Take 1 tablet by mouth once daily. Meds Comments as of 12/14/2015: Pt states she takes control pill, unable to recall which one Problem List As Of Date 08/21/2024 Noted Resolved Use of nicotine during (HCC) [O99.330]08/01/2024 Vaginal discharge [N89.8] 08/01/2024 Encounter for supervision of high risk pregnanc*08/01/2024 Depression with anxiety [F41.8] 08/01/2024 Nausea and vomiting during (HCC) [O21*08/01/2024 Fall [W19.XXXA] 08/01/2024 Penicillin allergy [Z88.0] 08/01/2024 Encounter Status:Closed by OSMANI JUAREZ on 08/21/24 [facility] CNOVon 08-15-2024 CNOV Office Visit (AGINTMLW) ---- GABE VIERA ([id number]) 1995 F [facility] Date Time Provider Department 08/15/24 2:20 PM AGUSTÍN BLACKWELL AGINTMLW During your visit today, we recorded the following information about you: Temperature Pulse Blood pressure Weight 98.5 degrees 76/minute 102/62 66 kg Height 1.626 m Agustín Blackwell, SPECIAL SERVICES COORDINATOR.MED DIR 08/15/2024 3:33 PM Signed This note was created using [employer]. 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 Headache: - Headache x3 days. - No recent sick contacts or travel. Tonsillar Swelling: - Onset of tonsillar swelling yesterday, with associated odynophagia and dysphagia. - Denies post-nasal drainage. Otalgia: - Bilateral otalgia since last night. 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 Nausea and Vomiting: - Nausea all day yesterday and today. - Typically experiences morning sickness without emesis, but vomited today. - Vomiting triggered by slight movements; no relief post-emesis. - Appetite described as crappy due to constant nausea. - Taking vitamins. - Denies diarrhea. - Prescribed aspirin for cramping but has not picked it up. : - Approximately 10 weeks gestation. - Reports fatigue and feeling sluggish. - Denies abdominal or pelvic pain. - No children at home. Allergies: - Allergic to penicillin and amoxicillin. ALLERGIES Allergen Reactions Amoxicillin Swelling Penicillins Swelling Current Outpatient Medications Medication Sig Dispense Refill Vitamin w/ Iron (PNV NO. 72, W/ IRON,) 27 mg iron- 1 mg Take 1 tablet by mouth once daily. 30 tablet 2 aspirin, enteric coated (ECOTRIN LOW STRENGTH) 81 mg EC tablet Take 1 tablet by mouth once daily. (Patient not taking: Reported on 08/15/2024) 90 tablet 3 No current facility-administer ed medications for this visit. ACTIVE PROBLEM LIST Use of Nicotine During (Hcc) Vaginal Discharge Encounter for Supervision of High Risk in First Trimester, Antepartum ([facility]) Depression With Anxiety Nausea and Vomiting During (Hcc) Fall Penicillin Allergy PAST MEDICAL HISTORY Diagnosis Date Anxiety Asthma (HCC) childhood Bronchitis Depression Personality disorder (HCC) PAST SURGICAL HISTORY Procedure Laterality Date NONE Social History Tobacco Use Smoking status: Former Current packs/day: 1.00 Types: Cigarettes Smokeless tobacco: Never Vaping Use Vaping status: current everyday user Substances: Nicotine, Flavoring Substance Use Topics Alcohol use: No Drug use: No Family History Problem Relation Age of Onset No Known Problems Mother No Known Problems Father Diabetes Maternal Grandmother Ovarian cancer Paternal Grandmother No Known Problems Half-brother No Known Problems Half-sister No Known Problems Half-sister No Known Problems Half-sister No Known Problems Half-sister Diabetes Other . Review of Systems Constitutional: Negative for chills, fatigue, fever and unexpected weight change. HENT: Positive for ear pain, postnasal drip and sore throat. Negative for congestion, rhinorrhea, sinus pressure, sinus pain, sneezing, tinnitus and trouble swallowing. Respiratory: Positive for shortness of breath. Negative for cough and wheezing. Cardiovascular: Negative for chest pain, palpitations and leg swelling. Gastrointestinal: Positive for nausea and vomiting. Negative for abdominal pain, constipation and diarrhea. Genitourinary: Negative for difficulty urinating, flank pain and frequency. Neurological: Positive for headaches. Objective 08/15/24 1446 BP: 102/62 Pulse: 76 Temp: 36.9 ?C (98.5 ?F) SpO2: 98% Weight: 66 kg (145 lb 9.6 oz) Height: 162.6 cm (5' 4) BP 102/62 Pulse 76 Temp 36.9 ?C (98.5 ?F) Ht 162.6 cm (5' 4) Wt 66 kg (145 lb 9.6 oz) LMP 06/08/2024 (Approximate) SpO2 98% BMI 24.99 kg/m? Physical Exam Vitals and nursing note reviewed. Constitutional: General: She is not in acute distress. Appearance: She is not ill-appearing. HENT: Head: Normocephalic and atraumatic. Cardiovascular: Rate and Rhythm: Normal rate and regular rhythm. Pulses: Normal pulses. Heart sounds: Normal heart sounds. No murmur heard. Pulmonary: Effort: Pulmonary effort is normal. No respiratory distress. Breath sounds: Normal breath sounds. No wheezing, rhonchi or rales. Abdominal: General: Abdomen is flat. Palpations: Abdomen is soft. Skin: General: Skin is warm and dry. Neurological: Mental Status: She is oriented to person, place, and time. Psychiatric: Mood and Affect: Mood normal. Behavior: Behavior normal. Thought Content: Thought content normal. Judgment: Judgment normal. Assessment and Plan 1. Non-recurrent acute suppurative otitis media of left (more content not included)... Normal [facility] CNPNon 08-06-2024 CNPN Telephone (AGPSYACC) ---- VIERAGABE Nayak ([id number]) 1995 [facility] Date Time Provider Department 08/06/24 TIANA CARPENTER During your visit today, we recorded the following information about you: Qasim Worrell 08/06/2024 11:05 AM Signed No Show Documentation Gabe Viera no showed for an appointment on 08/06/2024 with Tiana Carpenter MD at 9:00 AM. She was scheduled for VIRTUAL NEW . I called and spoke with the patient regarding her missed appointment. Gabe stated the reason that she missed her appointment was because forgot about appointment . Resources discussed/offered to patient: RESSCHEDULE No show determined to be fault of patient: Yes This is the patients first no show in the last 12 months. Patient was rescheduled for NOT AT THIS TIME. Letter mailed : Yes Is this the Third or Fourth No Show? Madie Worrell August 06, 2024 11:02 AM Allergies As of Date: 08/06/2024 Noted Allergy Reaction AMOXICILLIN 07/21/2014 7 - Swelling PENICILLINS 07/21/2014 7 - Swelling Date Reviewed: 08/01/2024 Reviewed by: Freda Santillan APRN.MED DIR - Fully Assessed Prescriptions as of 08/06/2024 - aspirin, enteric coated (ECOTRIN LOW STRENGTH) 81 mg EC tablet Take 1 tablet by mouth once daily. - Vitamin w/ Iron (PNV NO. 72, W/ IRON,) 27 mg iron- 1 mg Take 1 tablet by mouth once daily. Meds Comments as of 12/14/2015: Pt states she takes control pill, unable to recall which one Problem List As Of Date 08/06/2024 Noted Resolved Use of nicotine during (HCC) [O99.330]08/01/2024 Vaginal discharge [N89.8] 08/01/2024 Encounter for supervision of high risk pregnanc*08/01/2024 Depression with anxiety [F41.8] 08/01/2024 Nausea and vomiting during (HCC) [O21*08/01/2024 Fall [W19.XXXA] 08/01/2024 Penicillin allergy [Z88.0] 08/01/2024 Letter Text Encounter Status:Closed by QASIM WORRELL on 08/06/24 [facility] CNPN Telephone (PSYRMN) ---- GABE VIERA ([id number]) 1995 [facility] Date Time Provider Department 08/02/24 ARIEL RAWLS PSYRMN During your visit today, we recorded the following information about you: Ariel Rawls LISW 08/02/2024 12:23 PM Signed Review of referral with patient. Was patient aware of [facility] referral placement by provider?Yes Is the patient currently connected for care : No If not connected to Care are they agreeable to referral?Yes If agreeable to referral, are they:Internal Comment: [facility] psychiatry Assisted in making appt at: [facility] psychiatry Appointment date and time: 08/06/24 @ 9am ([place]) Current priority status of the referral Medium Additional information Patient and SW discussed [facility] referral. Patient shared mental health history, noting history of depression and anxiety as well as possible other diagnoses. Patient reports being happy about the , but noted difficulty controlling emotions over the last two months, reporting crying a lot and needing to call off work a lot. Patient agreeable to [facility] psychiatry appointment: appointment scheduled. Patient declines interest in counseling at this time, but verbalized understanding that [facility] SW can assist patient in connecting with counseling in the future if needed/wanted. 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 - Vitamin w/ Iron (PNV NO. 72, W/ IRON,) 27 mg iron- 1 mg Take 1 tablet by mouth once daily. 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]08/01/2024 Vaginal discharge [N89.8] 08/01/2024 Encounter for supervision of high risk pregnanc*08/01/2024 Depression with anxiety [F41.8] 08/01/2024 Nausea and vomiting during (HCC) [O21*08/01/2024 Fall [W19.XXXA] 08/01/2024 Penicillin allergy [Z88.0] 08/01/2024 Encounter Status:Closed by ARIEL RAWLS on 08/02/24 Normal [facility] Telephone (PSYRMN) ---- GABE VIERA ([id number]) 1995 F [facility] Date Time Provider Department 08/02/24 ARIEL RAWLS PSYRMN During your visit today, we recorded the following information about you: Ariel Rawls LISW 08/02/2024 11:23 AM Signed Phone call to patient regarding [facility] referral. Patient did not answer, left message. 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 - Vitamin w/ Iron (PNV NO. 72, W/ IRON,) 27 mg iron- 1 mg Take 1 tablet by mouth once daily. 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]08/01/2024 Vaginal discharge [N89.8] 08/01/2024 Encounter for supervision of high risk pregnanc*08/01/2024 Depression with anxiety [F41.8] 08/01/2024 Nausea and vomiting during (HCC) [O21*08/01/2024 Fall [W19.XXXA] 08/01/2024 Penicillin allergy [Z88.0] 08/01/2024 Encounter Status:Closed by ARIEL RAWLS on 08/02/24 Normal [facility] BACTERIAL VAGINOSIS NAATon 0 08-01-2024 Lactobacillus crispatus+gasseri+jense tanvir + Gardnerella vaginalis + Atopobium vaginae rRNA JOSEFA+probe Ql (Vag fld) Not detected Normal Not detected [facility] Comment on above: Order Comment: Speci men Type: BLOOD SPECIMEN [facility] Address: [address] [place] [address] [place] [address] Performed By: #### 5 195-3, 12705-1, 70643-7 #### [facility] CLIA [id number] [address] [place] [address] [place] Bacteria Ur Culton Bacteria identified Cx Nom (U) ORGANISM ID: 1 10,000 -<50,000 CFU/ml Normal urogenital david Normal [facility] Comment on above: Performed By: #### 6 30-4 ####[facility] LABCLIA [id number] [place] [address] [place] C. trachomatis+N. gonorrhoea e DNA JOSEFA+probe Ql (Unsp spec)on 08-01-2024 C. trachomatis rRNA JOSEFA+probe Ql (Unsp spec) Not detected Normal Not detected [facility] Comment on above: Order Comment: Speci men Type: BLOOD SPECIMEN [facility] Address: [address] [place] [address] Performed By: #### 5 195-3, 80914-6, 40536-3 #### [facility] CLIA [id number] [address] [place] [address] [place] N. gonorrhoeae rRNA JOSEFA+probe Ql (Unsp spec) Not detected Normal Not detected [facility] Comment on above: Order Comment: Speci men Type: BLOOD SPECIMEN [facility] Address: [address] [place] [address] Performed By: #### 5 195-3, 80673-9, 24844-7 #### [facility] CLIA [id number] [address] [place] [address] [place] YOUSUF/TRICHOMONAS NAATon 0 08-01-2024 C. glabrata RNA JOSEFA+probe Ql (Vag fld) Detected Abnormal Not detected [facility] Comment on above: Order Comment: Speci men Type: BLOOD SPECIMEN [facility] Address: [address] [place] [address] Performed By: #### 5 195-3, 40011-1, 99522-2 #### [facility] CLIA [id number] [address] [place] [address] [place] Yousuf sp DNA JOSEFA+probe Ql (Vag fld) Detected Abnormal Not detected [facility] Comment on above: Order Comment: Speci men Type: BLOOD SPECIMEN [facility] Address: [address] [place] [address] Result Comment: The Yousuf species group target includes C. albicans, C. tropicalis, C. parapsilosis, and C. dubliniensis. Performed By: #### 5 195-3, 93198-1, 51882-2 #### [facility] CLIA [id number] [address] [place] [address] [place] T. vaginalis DNA JOSEFA+probe Ql (Unsp spec) Not detected Normal Not detected [facility] Comment on above: Order Comment: Speci men Type: BLOOD SPECIMEN [facility]: [facility] Address: [address] [place] [address] Performed By: #### 5 195-3, 68191-2, 64565-8 #### [facility] CLIA [id number] [address] [place] [address] [place] PAP TESTon 08-01-2024 ADEQUACY Normal [facility] Comment on above: Order Comment: Speci men Type: BLOOD SPECIMEN [facility] [facility] Address: [address] [place] [address] Result Comment: Sati sfactory for interpretation. Transformation zone present Performed By: #### 5 195-3, 91107-3, 21134-9 #### [facility] CLIA [id number] [address] [place] [address] [place] CASE REPORT Normal [facility] Comment on above: Order Comment: Speci men Type: BLOOD SPECIMEN Ordering Facility: [facility] Address: [address] [place] [address] Result Comment: Gyne cologic Cytology Report Case: [id number] Authorizing Provider: Freda Santillan APRN.MED DIR Collected: 08/01/2024 02:25 PM Ordering Location: OB/Gynecology Received: 08/01/2024 04:43 PM First Screen: Venessa Bunch, CT, ASCP Rescreen: Freda Burgos, CT, ASCP Specimen: Pap Test, ThinPrep, Cervix Performed By: #### 5 195-3, 88468-8, 77972-6 #### [facility] CLIA [id number] [address] [place] [address] [place] CLINICAL HISTORY, CYTOLOGY, SHIP DESIGN TEACHER Routine Exam Normal [facility] Comment on above: Order Comment: Speci men Type: BLOOD SPECIMEN Ordering Facility: [facility] Address: [address] [place] [address] Performed By: #### 5 195-3, 11383-3, 43068-9 #### [facility] CLIA [id number] [address] [place] [address] STATES OF [facility] FINAL PERFORMING LAB Normal [facility] Comment on above: Order Comment: Speci men Type: BLOOD SPECIMEN Ordering Facility: [facility] Address: [address] [place] [address] Result Comment: Tech nical component, switching clerk screening performed at: [facility], [address] [place] [address] CLIA: [id number] Diagnostic interpretation performed at: [facility], [address] [place] [address] CLIA# [id number] Plating Inspector: Sherry Winston MD Performed By: #### 5 195-3, 48448-4, 68106-2 #### [facility] CLIA [id number] [address] [place] [address] [place] INTERPRETATION, CYTOLOGY, SHIP DESIGN TEACHER Normal [facility] Comment on above: Order Comment: Speci men Type: BLOOD SPECIMEN Ordering Facility: [facility] Address: [address] [place] [address] Result Comment: Nega tive for intraepithelial lesion or malignancy. at 0925 EDT Performed By: #### 5 195-3, 50084-6, 16269-1 #### [facility] CLIA [id number] [address] [place], [place] [address] [place] LMP 06/08/2024 Normal [facility] Comment on above: Order Comment: Speci men Type: BLOOD SPECIMEN Ordering Facility: [facility] Address: [address] [place] [address] Performed By: #### 5 195-3, 87908-7, 99962-2 #### [facility] CLIA [id number] [address] [place], [place] [address] [place] PAP DISCLAIMER COMMENT The Pap Smear is a screening test for cervical cancer. False negative results occur with all screening tests, emphasizing the need for rescreening at recommended intervals, and clinical correlation. Normal [facility] Comment on above: Order Comment: Speci men Type: BLOOD SPECIMEN Ordering Facility: [facility] Address: [address] [place] [address] Performed By: #### 5 195-3, 19117-6, 28213-8 #### [facility] CLIA [id number] [address] [place], [place] [address] [place] Absolute neutrophil countOrd ered By: ED PROVIDER on 07-15-2024 Neutrophils (Bld) [#/Vol] 6.2 10*3/uL 2.0-7.7 [facility] Anion gap in Serum or Plasma Ordered By: ED PROVIDER on 07-15-2024 Anion gap [Moles/Vol] 11 mmol/L 5-15 [facility] [id number] 07-15-2024 ABO and Rh group Nom (Bld) Blood group O Rh(D) negative Normal [facility] Comment on above: Performed By: #### B 882-1 #### [facility] [address] [place], [address] BUN/creatinine ratioOrdered By: ED PROVIDER on 07-15-2024 Urea nitrogen/Creatinine [Mass ratio] 5.7 mg/mg Low 10-20 [facility] Basophil percentageOrdered B y: ED PROVIDER on 07-15-2024 Basophils/100 WBC (Bld) 0.5 % 0-1 [facility] Beta HCG ( test) Ql Ordered By: ED PROVIDER on 07-15-2024 Serum Test, Qualitative Negative High [facility] Comment on above: TEST is *P OSITIVE* Bilirubin, totalOrdered By: ED PROVIDER on 07-15-2024 Bilirubin [Mass/Vol] 1.02 mg/dL 0.00-1.30 [facility] CBC W/Diff, Automatedon Absolute Lymph 2.69 X10 3/uL Normal 0.83-4.51 [facility] Comment on above: Performed By: #### L 100.0100, L700.6800, L500.4050, L501.2450 ####[facility] [address] [place], [address] Absolute Neut 6.2 X10 3/uL Normal 2.0-7.7 [facility] Comment on above: Performed By: #### L 100.0100, L700.6800, L500.4050, L501.2450 ####[facility] [address] [place], [address] Basophils/100 WBC (Bld) 0.5 % Normal 0-1 [facility] Comment on above: Performed By: #### L 100.0100, L700.6800, L500.4050, L501.2450 ####[facility] [address] [place], [address] Eosinophils/100 WBC (Bld) 1.0 % Normal 0-5 [facility] Comment on above: Performed By: #### L 100.0100, L700.6800, L500.4050, L501.2450 ####[facility] [address] [place], [address] Erythrocyte distribution width (RBC) [Ratio] 13.3 % Normal 11.6-14.6 [facility] Comment on above: Performed By: #### L 100.0100, L700.6800, L500.4050, L501.2450 ####[facility] [address] [place], [address] Hematocrit (Bld) [Volume fraction] 39.4 % Normal 37-47 [facility] Comment on above: Performed By: #### L 100.0100, L700.6800, L500.4050, L501.2450 ####[facility] [address] [place], [address] Hemoglobin (Bld) [Mass/Vol] 13.5 g/dL Normal 12.0-15.0 [facility] Comment on above: Performed By: #### L 100.0100, L700.6800, L500.4050, L501.2450 ####[facility] [address] [place], [address] IG% 0.400 Normal 0.0-0.9 [facility] Comment on above: Result Comment: IG% - Immature Granulocytes (promyelocytes, myelocytes and metamyelocytes) > 1% indicates that a LEFT SHIFT is Present. Performed By: #### L 100.0100, L700.6800, L500.4050, L501.2450 ####[facility] [address] [place], [address] Lymphocytes/100 WBC (Bld) 27.6 % Normal 19-41 [facility] Comment on above: Performed By: #### L 100.0100, L700.6800, L500.4050, L501.2450 ####[facility] [address] [place], [address] MCH (RBC) [Entitic mass] 31.9 pg Normal 27.0-32.0 [facility] Comment on above: Performed By: #### L 100.0100, L700.6800, L500.4050, L501.2450 ####[facility] [address] [place], [address] MCHC (RBC) [Mass/Vol] 34.3 g/dL Normal 32-36 [facility] Comment on above: Performed By: #### L 100.0100, L700.6800, L500.4050, L501.2450 ####[facility] [address] [place], [address] MCV (RBC) [Entitic vol] 93.1 fL Normal 81-99 [facility] Comment on above: Performed By: #### L 100.0100, L700.6800, L500.4050, L501.2450 ####[facility] [address] [place], [address] Monocytes/100 WBC (Bld) 6.7 % Normal 0-10 [facility] Comment on above: Performed By: #### L 100.0100, L700.6800, L500.4050, L501.2450 ####[facility] [address] [place], [address] Neutrophils/100 WBC (Bld) 63.8 % Normal 47-70 [facility] Comment on above: Performed By: #### L 100.0100, L700.6800, L500.4050, L501.2450 ####[facility] [address] [place], [address] Nucleated RBC (Bld) [#/Vol] 0 10*3/uL Normal 0-5 [facility] Comment on above: Performed By: #### L 100.0100, L700.6800, L500.4050, L501.2450 ####[facility] [address] [place], [address] Platelet mean volume (Bld) [Entitic vol] 9.8 fL Normal 6.2-12.0 [facility] Comment on above: Performed By: #### L 100.0100, L700.6800, L500.4050, L501.2450 ####[facility] [address] [place], [address] Platelets (Bld) [#/Vol] 277 10*3/uL Normal 150-450 [facility] Comment on above: Performed By: #### L 100.0100, L700.6800, L500.4050, L501.2450 ####[facility] [address] [place], [address] RBC (Bld) [#/Vol] 4.23 10*6/uL Normal 4.2-5.4 [facility] Comment on above: Performed By: #### L 100.0100, L700.6800, L500.4050, L501.2450 ####[facility] [address] [place], [address] RDW SD 45.8 fl High 35.1-43.9 [facility] Comment on above: Performed By: #### L 100.0100, L700.6800, L500.4050, L501.2450 ####[facility] [address] [place], [address] WBC (Bld) [#/Vol] 9.8 10*3/uL Normal 4.4-11.0 [facility] Comment on above: Performed By: #### L 100.0100, L700.6800, L500.4050, L501.2450 ####[facility] [address] [place], [address] CNPNon 07-15-2024 [facility] Telephone (OBGYWM) ---- VIERAGABE Nayak ([id number]) 1995 [facility] Date Time Provider Department 07/15/24 [facility] V[facility]AL[facility]O OBGYWMorenita During your visit today, we recorded the following information about you: Cristobal Smiley RN 07/15/2024 1:59 PM Signed Patient calling with concerns of cramping and vaginal spotting in early . Patient states she had some spotting in her underwear earlier today that was light red. Patient states she just used the bathroom and did not have any bleeding when she wiped. Patient was seen in the office on 07/10 for a ER follow up at [place] on 07/07. When she went to the ER she did not have any bleeding only cramping. Currently rating abdominal cramping at a 4-5 out of 10, occasional stabbing. LMP was 3/1, making her approximately 5w2d. blee hCG Quantitative, Blood (mIU/mL) Date Value 07/10/2024 1,045.0 07/07/2024 420.4 KATIE Donis Jessica, APRN.CNM 07/15/2024 3:07 PM Signed I can order another hCG and pelvic ultrasound. Can she have an US and follow up visit tomorrow due to no prior US and confirm IUP. [place] Tinoco Lindsey, RN 07/15/2024 3:13 PM Signed Left message to call office. Please file pended HCG quant level. KATIE Donis Jennifer, RN 07/15/2024 3:23 PM Signed Patient called back. Are you wanting patient to have a formal US or bedside? No pelvic US openings until . Also need HCG orders signed. KATIE Vega Jessica, APRN.CNM 07/15/2024 3:57 PM Addendum Formal ultrasound soonest appointment please. Thanks, [place] Tinoco Lindsey, RN 07/15/2024 4:04 PM Signed Patient called and notified of below instructions. Patient states she is actually already on her way to [place] ED. Patient states she has not had an increase in bleeding or pain/cramping since last call, but she is just feeling anxious and wants to be evaluated. Patient will call office tomorrow with update and schedule ultrasound if not done in ED. Will look for ER reports from [facility] tomorrow. KATIE Donis Trisha, RN 07/17/2024 9:37 AM Signed Patient did go to [facility] ER on 07/15/24. She did have labs and u/s. All records available under care everywhere. Copied some below. Should she get the [facility] This order was previously placed. US/Transvaginal w/Preg US IMPRESSION: Early intrauterine gestational sac with a yolk sac but no identifiable pole. Differential diagnosis includes an early intrauterine , or incomplete . Serial beta HCG measurements is recommended. [facility] hcg Result: HCG ( test) Ql Ordered By: Jacinto Abarca on 07-15-2024 Human Chorionic Gonadotropin, Quant 5000 mIU/mL Previous F results: hCG Quantitative, Blood (mIU/mL) Date Value 07/10/2024 1,045.0 07/07/2024 420.4 Sunitha Aguilar APRN.CNM 07/17/2024 11:27 AM Signed We can discuss ordering HCG levels at her appointment. Thank you! [place] Nieto Trisha, RN 07/17/2024 11:31 AM Signed She doesn't have an appointment until her NOB on 08/01/24. Does she need one this week? KATIE Wright Courtney, APRN.CNM 07/17/2024 11:33 AM Signed I would recommend a visit in office prior to NOB due to cramping and spotting. I would recommend a formal ultrasound here as well. Next week is fine. [place] Nieto Jennifer, RN 07/17/2024 12:03 PM Signed Called patient. Scheduled for viability US and f/u visit with RR on 07/25. Patient reports having a yeast infection. Vaginal itching and thick white discharge. Discussed OTC Monistat 7 day. She has not had any more bleeding since ER visit. Occasional right sided sharp pain continues. Klarissa Beckett RN Allergies As of Date: 07/15/2024 Noted Allergy Reaction AMOXICILLIN 07/21/2014 7 - Swelling PENICILLINS 07/21/2014 7 - Swelling Date Reviewed: 07/10/2024 Reviewed by: Perfecto Sanches LPN - Fully Assessed Reason for Visit: Bleeding With [73364] Primary Visit Diagnosis:Pelvic pain in (HCC) [O26.899, R10.2] Other Visit Diagnosis:Bleeding in early (HCC) [O20.9] Order(s):PELVIC US WHI [9683663] Order #: [id number]: 1 FUTURE HCG QUANTITATIVE [SQHCGQT] Order #: [id number] FUTURE Prescriptions as of 07/17/2024 - Vitamin w/ Iron (PNV NO. 72, W/ IRON,) 27 mg iron- 1 mg Take 1 tablet by mouth once daily. Meds Comments as of 12/14/2015: Pt states she takes control pill, unable to recall which one Problem List As Of Date 07/15/2024 Noted Resolved Obesity, Class I, BMI 30-34.9 [E66.811] 07/12/2021 Bacterial vaginosis [N76.0, B96.89] 07/12/2021 Encounter Status:Closed by SUNITHA AGUILAR on 07/17/24 Normal [facility] Carbon dioxide, total [Moles /volume] in Central venous bloodOrdered By: ED PROVIDER on 07-15-2024 CO2 [Moles/Vol] 23.8 mmol/L 21.0-32.0 [facility] Chloride assayOrdered By: ED PROVIDER on 07-15-2024 Chloride [Moles/Vol] 105 mmol/L 98-108 [facility] Comprehensive Metabolic Prof ilon 07-15-2024 Albumin [Mass/Vol] 4.3 g/dL Normal 3.5-5.0 [facility] Comment on above: Performed By: #### L 100.0100, L700.6800, L500.4050, L501.2450 ####[facility] [address] [place], [address] Albumin/Globulin [Mass ratio] 1.4 {ratio} Normal 0.9-2.4 [facility] Comment on above: Performed By: #### L 100.0100, L700.6800, L500.4050, L501.2450 ####[facility] [address] [place], [address] ALK PHOS 94 U/L Normal 35-104 [facility] Comment on above: Performed By: #### L 100.0100, L700.6800, L500.4050, L501.2450 ####[facility] [address] [place], [address] ALT [Catalytic activity/Vol] 7 U/L Normal <=34 [facility] Comment on above: Performed By: #### L 100.0100, L700.6800, L500.4050, L501.2450 ####[facility] [address] [place], [address] AST [Catalytic activity/Vol] 13 U/L Normal <=31 [facility] Comment on above: Performed By: #### L 100.0100, L700.6800, L500.4050, L501.2450 ####[facility] [address] [place], [address] Bilirubin [Mass/Vol] 1.02 mg/dL Normal 0.00-1.30 [facility] Comment on above: Performed By: #### L 100.0100, L700.6800, L500.4050, L501.2450 ####[facility] [address] [place], [address] BUN/CRE 5.7 RATIO Low 10-20 [facility] Comment on above: Performed By: #### L 100.0100, L700.6800, L500.4050, L501.2450 ####[facility] [address] [place], [address] Calcium [Mass/Vol] 9.3 mg/dL Normal 7.6-11.0 [facility] Comment on above: Performed By: #### L 100.0100, L700.6800, L500.4050, L501.2450 ####[facility] [address] [place], [address] Chloride [Moles/Vol] 105 mmol/L Normal 98-108 [facility] Comment on above: Performed By: #### L 100.0100, L700.6800, L500.4050, L501.2450 ####[facility] [address] [place], [address] CO2 [Moles/Vol] 23.8 mmol/L Normal 21.0-32.0 [facility] Comment on above: Performed By: #### L 100.0100, L700.6800, L500.4050, L501.2450 ####[facility] [address] [place], [address] Creatinine [Mass/Vol] 0.90 mg/dL Normal 0.70-1.20 [facility] Comment on above: Performed By: #### L 100.0100, L700.6800, L500.4050, L501.2450 ####[facility] [address] [place], [address] ECRCL 89.21 ml/min Normal 50-250 [facility] Comment on above: Performed By: #### L 100.0100, L700.6800, L500.4050, L501.2450 ####[facility] [address] [place], [address] GAP 11 Normal 5-15 [facility] Comment on above: Performed By: #### L 100.0100, L700.6800, L500.4050, L501.2450 ####[facility] [address] [place], [address] GFR/1.73 sq M.predicted among non-blacks MDRD (S/P/Bld) [Vol rate/Area] 91 mL/min/{1.73_m2} Normal >60 [facility] Comment on above: Result Comment: mL/m in/1.73m2 CKD-EPI Creatinine Equation (2020) Performed By: #### L 100.0100, L700.6800, L500.4050, L501.2450 ####[facility] [address] [place], [address] Globulin (S) [Mass/Vol] 3.2 g/dL Normal 2.2-4.2 [facility] Comment on above: Performed By: #### L 100.0100, L700.6800, L500.4050, L501.2450 ####[facility] [address] [place], [address] Glucose [Mass/Vol] 55 mg/dL Low 70-99 [facility] Comment on above: Performed By: #### L 100.0100, L700.6800, L500.4050, L501.2450 ####[facility] [address] [place], [address] Potassium [Moles/Vol] 4.0 mmol/L Normal 3.3-5.1 [facility] Comment on above: Performed By: #### L 100.0100, L700.6800, L500.4050, L501.2450 ####[facility] [address] [place], [address] Sodium [Moles/Vol] 139 mmol/L Normal 133-145 [facility] Comment on above: Performed By: #### L 100.0100, L700.6800, L500.4050, L501.2450 ####[facility] [address] [place], [address] T PROT 7.4 g/dL Normal 5.9-8.4 [facility] Comment on above: Performed By: #### L 100.0100, L700.6800, L500.4050, L501.2450 ####[facility] [address] [place], [address] Urea nitrogen [Mass/Vol] 5 mg/dL Normal 4-19 [facility] Comment on above: Performed By: #### L 100.0100, L700.6800, L500.4050, L501.2450 ####[facility] [address] [place], [address] Emergency Department Summary on 07-15-2024 Emergency Department Summary [facility] Medical Records Department [address] [place] [address] Emergency Department Summary 07/15/24 MR#: [id number] Acct: [id number] Name: GABE VIERA Rep #: [id number] : 1995 28 From: Jacinto Abarca DO PCP: LAYLA Bartholomew Status:REG ER Location: ED ADDENDUM by Dr. Jacinto Abarca DO on 07/15/24 at 2055 Medical decision making narrative: HISTORY OF PRESENT ILLNESS: Chief complaint: Abdominal pain, early 28-year-old female who is a G1, P0 presents with concern for abdominal pain in early . She did note some spotting several days ago but denies any bleeding. Denies any STDs. Denies abdominal pain now but does note cramping throughout the last 5 weeks. Notes nausea and breast tenderness as well. Denies vomiting. Denies history abdominal surgeries. Denies urinary complaints. Denies changes in bowel habits. REVIEW OF SYSTEMS: Pertinent positives: Abdominal pain, vaginal spotting Pertinent negatives: Vomiting PHYSICAL EXAM: Nursing triage notes reviewed, Vital signs reviewed Constitutional: please see mdm HENT: MMM Eyes: Pupils equal round and reactive to light, Extraocular muscles intact Neck: No stridor, no JVD, full neck ROM Lungs: Clear to auscultation, No wheezing or rales. No increased work of breathing, no conversational dyspnea, no accessory muscle use, no nasal flaring. No respiratory distress noted Heart: Regular rate and rhythm, No murmurs, No rubs and No gallops, 2+ distal pulses (radial, femoral, posterior tibial) in all extremities Abdomen: Soft, there is no tenderness, rigidity, rebound or guarding, no obvious peritoneal signs, no palpable pulsatile abdominal masses, no auscultated abdominal bruit : No CVAT Extremities: No edema Neuro: No new focal neurological deficits, cranial nerves II through XII intact, 5/5 strength in all present extremities. Intact sensation to light touch in all present extremities, 2+ reflexes bilateral patella tendons. Skin: No rash or lesions noted MEDICAL DECISION MAKING: Chief Complaint: please see HPI External records reviewed: Reviewed prior imaging studies Factors affecting care: none Social determinants of health: none History obtained from others: none Consults: OBGYN (Dr. Herzog) - discussed Rhogam. Noted there is likely no benefit at this gestational age. Recommended against Rhogam at this time. [facility] Narrative: The patient was initially hemodynamically stable, afebrile and nontoxic-appearing. Abdominal exam was benign I considered the following differential diagnosis: Early intrauterine , ectopic , miscarriage I obtained a ultrasound and labs ALL IMAGES (IF OBTAINED) HAVE BEEN PERSONALLY REVIEWED AND INTERPRETED BY MYSELF. CBC with no leukocytosis, no anemia or thrombocytopenia CMP without evidence of acute kidney injury, significant electrolyte abnormality, anion gap to suggest end organ hypo-perfusion, no evidence of metabolic acidosis with a normal bicarbonate, no evidence of hepatobiliary obstructive pathology. Lipase is wnl indicating no pancreatic inflammation. Serum test Transvaginal ultrasound showed findings consistent with likely intrauterine although is not definitive. Patient would need repeat outpatient quant and ultrasound. Discussed this with patient who agreed to follow with DIAPER FOLDER. Strict return precautions were discussed. Follow-up was arranged. The patient and/or family, caregivers express understanding. The patient and/or family, caregivers agrees with the plan. Shared decision making: I will have a discussion with the patient and or visitors regarding risk/benefits of further testing or admission. They will be made aware of of the risk/benefits inherent in this decision they will be given the opportunity to voice understanding. Total critical care time today provided was at least 0 minutes. This excludes separately billable procedures. Critical care time (if documented) is secondary to the patient having high probability of clinically significant/life threatening deterioration in the patient's condition which required my urgent intervention. Impression: 1. Abdominal pain 2. First trimester Dispo: Discharge home This note was generated with [employer] dictation software. It may contain incorrect words, spelling, and punctuation that were not noted in review of the chart prior to signing. 07/15/242054 Cosigner Signature (if applicable): cc: LAYLA Morgan * Signed HPI History of Present Illness Chief Complaint: Abd Pain [facility] Medical History (Updated 12/06/22 @ 15:33 by Amparo CHRISTIANSON, PA) Contact with and (suspected) exposure to other viral communicable diseases Acute streptococcal pharyngitis COVID-19 URI (upper respi (more content not included)... Normal [facility] Eosinophil percentageOrdered By: ED PROVIDER on 07-15-2024 Eosinophils/100 WBC (Bld) 1.0 % 0-5 [facility] Erythrocyte distribution wid th (RBC) [Ratio]Ordered By: ED PROVIDER on 07-15-2024 Erythrocyte distribution width (RBC) [Entitic vol] 45.8 fL High 35.1-43.9 [facility] Erythrocyte distribution wid th ratioOrdered By: ED PROVIDER on 07-15-2024 Erythrocyte distribution width (RBC) [Ratio] 13.3 % 11.6-14.6 [facility] Estimation of creatinine livia aranceOrdered By: ED PROVIDER on 07-15-2024 Estimated Creatinine Clearance Calc 89.21 ml/min 50-250 [facility] GFR/1.73 sq M.predicted marilyn g non-blacks MDRD (S/P/Bld) [Vol rate/Area]Ordered By: ED PROVIDER on 07-15-2024 Estimated GFR (MDRD) Non-Af Amer 91 >60 [facility] Comment on above: mL/min/1.73m2 CKD-EP I Creatinine Equation (2020) HCG ( test) QlOrder ed By: Jacinto Abarca on 07-15-2024 Human Chorionic Gonadotropin, Quant 5000 mIU/mL High <9 [facility] Comment on above: Gestational Age0.2-1 Week: 5-50 mIU/mL1-2 Weeks: 50-500 mIU/mL2-3 Weeks: 100-5000 mIU/mL3-4 Weeks: 500-10,000 mIU/mL4-5 Weeks:1000-50,000 mIU/mL5-6 Weeks: 10,000-100,000 mIU/mL6-8 Weeks: 15,000-200,000 mIU/mL2-3 Months:10,000-100,000 mIU/mL Hematocrit Auto (Bld) [Volum e fraction]Ordered By: ED PROVIDER on 07-15-2024 Hematocrit (Bld) [Volume fraction] 39.4 % 37-47 [facility] Hemoglobin measurementOrdere d By: ED PROVIDER on 07-15-2024 Hemoglobin (Bld) [Mass/Vol] 13.5 g/dL 12.0-15.0 [facility] Immature granulocytes/100 WB C Auto (Bld)Ordered By: ED PROVIDER on 07-15-2024 Immature granulocytes/100 WBC (Bld) 0.400 % 0.0-0.9 [facility] Comment on above: IG% - Immature Granu locytes (promyelocytes, myelocytes and metamyelocytes) > 1% indicates that a LEFT SHIFT is Present. Laboratory - Chemistry and C hemistry - challengeOrdered By: ED PROVIDER on 07-15-2024 AST [Catalytic activity/Vol] 13 U/L <32 [facility] Lipaseon 07-15-2024 Lipase [Catalytic activity/Vol] 32 U/L Normal 13-75 [facility] Comment on above: Result Comment: Queenie jaquez note: LIPASE revised reference range effective 22. New Lipase methodology. Expected to produce lower values than the previous assay method. NEW Reference Range: 13 - 75 U/L Performed By: #### L 100.0100, L700.6800, L500.4050, L501.2450 ####[facility] [address] [place], [address] Lipase measurementOrdered By : ED PROVIDER on 07-15-2024 Lipase [Catalytic activity/Vol] 32 U/L 13-75 [facility] Comment on above: Please note:LIPASE r evised reference range effective 22. New Lipase methodology. Expected to produce lower values than the previous assay method. NEW Reference Range: 13 - 75 U/L Lymphocytes Auto (Unsp spec) [#/Vol]Ordered By: ED PROVIDER on 07-15-2024 Lymphocytes (Bld) [#/Vol] 2.69 10*3/uL 0.83-4.51 [facility] Lymphocytes/100 WBC Auto (Un sp spec)Ordered By: ED PROVIDER on 07-15-2024 Lymphocytes/100 WBC (Bld) 27.6 % 19-41 [facility] MCV (mean corpuscular volume ) determinationOrdered By: ED PROVIDER on 07-15-2024 MCV (RBC) [Entitic vol] 93.1 fL 81-99 [facility] Mean corpuscular hemoglobin (MCH) determinationOrdered By: ED PROVIDER on 07-15-2024 MCH (RBC) [Entitic mass] 31.9 pg 27.0-32.0 [facility] Mean corpuscular hemoglobin concentration (MCHC) determinationOrdered By: ED PROVIDER on 07-15-2024 MCHC (RBC) [Mass/Vol] 34.3 g/dL 32-36 [facility] Mean platelet volume determi nationOrdered By: ED PROVIDER on 07-15-2024 Platelet mean volume (Bld) [Entitic vol] 9.8 fL 6.2-12.0 [facility] Monocyte percentageOrdered B y: ED PROVIDER on 07-15-2024 Monocytes/100 WBC (Bld) 6.7 % 0-10 [facility] Neutrophil percentageOrdered By: ED PROVIDER on 07-15-2024 Neutrophils/100 WBC (Bld) 63.8 % 47-70 [facility] Nucleated red blood cell per centageOrdered By: ED PROVIDER on 07-15-2024 Nucleated RBC/100 WBC (Bld) [Ratio] 0 % 0-5 [facility] Platelet countOrdered By: ED PROVIDER on 07-15-2024 Platelets (Bld) [#/Vol] 277 10*3/uL 150-450 [facility] Potassium (Unsp spec) [Mass/ Vol]Ordered By: ED PROVIDER on 07-15-2024 Potassium [Moles/Vol] 4.0 mmol/L 3.3-5.1 [facility] ,Serum,hCG Quali.on 07-15-2024 HCG, SERUM QUAL Positive Abnormal [facility] Comment on above: Order Comment: CRITI ONOFRE VALUE CALLED TO [id number]/07/25 1720 Mally Black.RESULTS READ BACK BY SAME. Result Comment: PREG MIRANDA TEST is *POSITIVE* Performed By: #### L 100.0100, L700.6800, L500.4050, L501.2450 ####[facility] [address] [place], [place], [address] RBC Auto (Bld) [#/Vol]Ordere d By: ED PROVIDER on 07-15-2024 RBC (Bld) [#/Vol] 4.23 10*6/uL 4.2-5.4 [facility] Serum creatinine measurement (mass/volume)Ordered By: ED PROVIDER on 07-15-2024 Creatinine [Mass/Vol] 0.90 mg/dL 0.70-1.20 [facility] Serum globulin measurementOr dered By: ED PROVIDER on 07-15-2024 Globulin (S) [Mass/Vol] 3.2 g/dL 2.2-4.2 [facility] Serum glucose measurement (m ass/volume)Ordered By: ED PROVIDER on 07-15-2024 Glucose [Mass/Vol] 55 mg/dL Low 70-99 [facility] Serum or plasma alanine brennan otransferase (ALT) measurementOrdered By: ED PROVIDER on 07-15-2024 ALT [Catalytic activity/Vol] 7 U/L <35 [facility] Serum or plasma albumin mahesh urement (mass/volume)Ordered By: ED PROVIDER on 07-15-2024 Albumin [Mass/Vol] 4.3 g/dL 3.5-5.0 [facility] Serum or plasma albumin/glob ulin mass ratioOrdered By: ED PROVIDER on 07-15-2024 Albumin/Globulin [Mass ratio] 1.4 {ratio} 0.9-2.4 [facility] Serum or plasma alkaline vernon sphatase measurementOrdered By: ED PROVIDER on 07-15-2024 ALP [Catalytic activity/Vol] 94 U/L 35-104 [facility] Serum or plasma calcium mahesh urement (mass/volume)Ordered By: ED PROVIDER on 07-15-2024 Calcium [Mass/Vol] 9.3 mg/dL 7.6-11.0 [facility] Serum or plasma urea nitroge n measurement (mass/volume)Ordered By: ED PROVIDER on 07-15-2024 Urea nitrogen [Mass/Vol] 5 mg/dL 4-19 [facility] Sodium levelOrdered By: ED P ROVIDER on 07-15-2024 Sodium [Moles/Vol] 139 mmol/L 133-145 [facility] Total proteinOrdered By: ED PROVIDER on 07-15-2024 Protein [Mass/Vol] 7.4 g/dL 5.9-8.4 [facility] Transvaginal w/Preg USon Transvaginal w/Preg US [facility] [address] [place], [place] [address] Transvaginal w/Preg US MR#: [id number] Acct: [id number] Name: GABE VIERA Rep #: [id number] : 1995 F 28 From: Nick Jean MD PCP: Care Physician,No Primary Status: PRE ER Study: Transvaginal w/Preg US Date of Exam: 07/15/24 Exam# [id number] Ordering Dr: Jacinto Abarca DO PROCEDURE: TRANSVAGINAL W/PREG US 07/15/2024 REASON FOR EXAM: ABD PAIN EARLY TECHNIQUE: Transvaginal FINDINGS: Comments: Number of Gestational Sacs: 1 Gestational Sac Shape: Normal Number of Fetuses: 1 Heart Rate: (average) Survey of Visible Anatomic Structures: Grossly unremarkable for gestational age. Nasal Bones: Yolk Sac: Present and unremarkable. Placenta: Presently not well-visualized Amniotic Fluid Volume: Subjectively normal for gestational age. Uterine Abnormalities: Maternal uterus is unremarkable. Ovaries / Adnexa: Both maternal ovaries are visualized and unremarkable. DIMENSIONS: Parameter Measurement / EGA Danby Rump Length: Not visualized/ Gestational Sac: 7 mm/5 weeks 3 days Yolk Sac: 2 mm/ ESTIMATED GESTATIONAL AGE: By Ultrasound: 5 weeks 3 days By LMP: 5 weeks 2 days ESTIMATED DATE OF DELIVERY: By Ultrasound: 03/14/2025 By LMP: 03/15/2025 US/Transvaginal w/Preg US IMPRESSION: Early intrauterine gestational sac with a yolk sac but no identifiable pole. Differential diagnosis includes an early intrauterine , or incomplete . Serial beta HCG measurements is recommended. Reading Location: [id number] CC: Dr. Jacinto Abarca DO; No Primary Care Physician Salesperson Shoes: Signed Normal [facility] White blood cell (WBC) count Ordered By: ED PROVIDER on 07-15-2024 WBC (Bld) [#/Vol] 9.8 10*3/uL 4.4-11.0 [facility] hCG Titer Quant., Serumon HCG QUANT. 5000 mIU/mL High <9 non-preg [facility] Comment on above: Result Comment: Gest ational Age 0.2-1 Week: 5-50 mIU/mL 1-2 Weeks: 50-500 mIU/mL 2-3 Weeks: 100-5000 mIU/mL 3-4 Weeks: 500-10,000 mIU/mL 4-5 Weeks:1000-50,000 mIU/mL 5-6 Weeks: 10,000-100,000 mIU/mL 6-8 Weeks: 15,000-200,000 mIU/mL 2-3 Months:10,000-100,000 mIU/mL Performed By: #### L 700.8000 #### [facility] [address] [place], [address] B-HCG SerPl-aCncon 5 HCG.beta subunit Qn 1045.0 m[IU]/mL High <5.0 [facility] Comment on above: Order Comment: Speci men Type: BLOOD SPECIMEN Ordering Facility: [facility] Address: [address] [place] [address] Result Comment: ADRIÁN TITATIVE HCG NORMAL RANGES Weeks of Gestation (Weeks Since LMP) 3 Weeks (5.8-71.2 mIU/mL) 4 Weeks (9.5-750 mIU/mL) 5 Weeks (217-7138 mIU/mL) 6 Weeks (158-51554 mIU/mL) 7 Weeks (3697-450005 mIU/mL) 8 Weeks (92805-713737 mIU/mL) 9 Weeks (62032-422477 mIU/mL) 10 Weeks (34283-242434 mIU/mL) 12 Weeks (65447-486494 mIU/mL) Referenced to 4th IS of [facility] Performed By: #### 5 195-3, 49250-3, 69274-9 #### [facility] CLIA [id number] [address] [place] [address] OF [facility] CNOVon 07-10-2024 CNOV Office Visit (OBGYWM) ---- GABE VIERA ([id number]) 1995 [facility] Date Time Provider Department 07/10/24 11:10 AM JOSE REESE OBGYWM During your visit today, we recorded the following information about you: Blood pressure Weight Last Period 124/70 67.8 kg 06/08/24 Jose Reese MD 07/10/2024 11:34 AM Signed Gabe Viera is a 28 year old female who presents for problem visit follow up [place], Emergency Room visit on 07/07/2024 for reported vaginal cramping requested additional Hcg lab order, last Hcg 07/07/2024 420.4. HPI:Patient see3n at [place] ER to confirm Quant. BHCG 420 Asked to repeat BHCG in 48 hrs and presents today for lab. Reports nausea w/o emesis and breast tenderness. 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: Sexual Activity: Yes; No partner data on record Contraception: Condom PAST MEDICAL HISTORY Diagnosis Date Anxiety Asthma Bronchitis Depression Personality disorder (HCC) PAST SURGICAL HISTORY Procedure Laterality Date NONE FAMILY HISTORY Problem Relation Age of Onset No Known Problems Mother No Known Problems Father Diabetes Maternal Grandmother Ovarian cancer Paternal Grandmother Diabetes Other No Known Problems Half-sister No Known Problems Half-sister No Known Problems Half-sister No Known Problems Half-sister No Known Problems Half-brother Social History Tobacco Use Smoking status: Former Current packs/day: 1.00 Types: Cigarettes Smokeless tobacco: Never Vaping Use Vaping status: current everyday user Substances: Nicotine Substance Use Topics Alcohol use: No Drug use: No Current Outpatient Medications Medication Sig Vitamin w/ Iron (PNV NO. 72, W/ IRON,) 27 mg iron- 1 mg Take 1 tablet by mouth once daily. No current facility-administer ed medications for this visit. Allergies As of Date: 07/10/2024 Allergen Noted Reaction AMOXICILLIN 07/21/2014 Swelling PENICILLINS 07/21/2014 Swelling Fully Assessed 07/07/2024 REVIEW OF SYSTEMS Abdomen: No bloating, early satiety, indigestion, or increased flatulence. No abdominal pain, nausea, vomiting, diarrhea, or constipation. Bladder: No dysuria, gross hematuria, urinary frequency, urinary urgency, or incontinence. Breast: No breast lumps, nipple d/c, overlying skin changes, redness or skin retraction. Expanded ROS: N/A Allergies and current medication updated:Yes SENSITIVE EXAM: Sensitive exam not performed. EXAM: LMP 06/14/2024 GENERAL: pleasant, female in no apparent distress ASSESSMENT AND PLAN: Early confirm viability and appropriate rise in BHCG Assessment AND Plan 4 weeks gestation of (HCC) Orders: HCG QUANTITATIVE; Future confirm appropriate rise in BHCG and f/u for NOB ftft> 30 min Jose Reese MD Allergies As of Date: 07/10/2024 Noted Allergy Reaction AMOXICILLIN 07/21/2014 7 - Swelling PENICILLINS 07/21/2014 7 - Swelling Date Reviewed: 07/10/2024 Reviewed by: Perfecto Sanches LPN - Fully Assessed Reason for Visit: Problem Visit [Other] Primary Visit Diagnosis:4 weeks gestation of (HCC) [Z3A.01] Order(s):HCG QUANTITATIVE [SQHCGQT] Order #: [id number] FUTURE Prescriptions as of 07/10/2024 - Vitamin w/ Iron (PNV NO. 72, W/ IRON,) 27 mg iron- 1 mg Take 1 tablet by mouth once daily. Meds Comments as of 12/14/2015: Pt states she takes control pill, unable to recall which one Problem List As Of Date 07/10/2024 Noted Resolved Obesity, Class I, BMI 30-34.9 [E66.811] 07/12/2021 Bacterial vaginosis [N76.0, B96.89] 07/12/2021 Encounter Status:Closed by JOSE REESE on 07/10/24 Normal [facility] HCG QUANTITATIVEon HCG.beta subunit Qn 1045 m[IU]/mL [facility] Comment on above: QUANTITATIVE HCG NOR MAL RANGES Weeks of Gestation (Weeks Since LMP) 3 Weeks (5.8-71.2 mIU/mL) 4 Weeks (9.5-750 mIU/mL) 5 Weeks (217-7138 mIU/mL) 6 Weeks (158-84500 mIU/mL) 7 Weeks (3697-548536 mIU/mL) 8 Weeks (67585-015130 mIU/mL) 9 Weeks (02544-700396 mIU/mL) 10 Weeks (58017-958237 mIU/mL) 12 Weeks (91782-705581 mIU/mL) Referenced to 4th IS of [facility] HCG.beta subunit Qnon 2024 Interpretation and review of laboratory results Abnormal [facility] ED NOTEon 07-08-2024 ED NOTE HNO ID: [id number] Author: RENETTA MAYES RN Service: Emergency Medicine Author Type: Registered Nurse Type: ED Notes Filed: 07/08/2024 09:38 Note Text: Patient Call Back Information How are you doing ? better Did we appropriately manage your pain? Yes Did you understand your discharge instructions? Yes Did you get your prescriptions filled? Yes Were you able to make a follow-up appointment with your physician? Yes Were you comfortable during your stay here? Yes Did a member of the ER nursing team round on you during your visit? Yes You will receive a patient satisfaction survey in the mail in the nest 2 weeks, please take the time to fill out the survey as your input from your ER visit is very important to us. Yes Can we do anything else to help you? No Normal [facility] ED NOTE HNO ID: [id number] Author: SILVIANO BROOKS RN Service: Emergency Medicine Author Type: Registered Nurse Type: ED Notes Filed: 07/08/2024 01:15 Note Text: Patient discharge instructions given to patient. Patient educated on discharge instructions and prescription. Patient denied having questions at this time regarding discharge instructions. Patient discharged home at this time. Normal [facility] ED PROV NOTEon 07-08-2024 ED PROV NOTE HNO ID: [id number] Author: GEOFFREY ARTHUR MD Service: Emergency Medicine Author Type: Physician Type: ED Provider Notes Filed: 07/08/2024 03:43 Note Text: ED Provider Note Patient Name: Gabe Viera : 1995 SERVICE DATE: 07/07/24 History Patient presents with: Abdominal Pain Possible Ex-smoker, past history of ovarian cyst, presents to the emergency room with her mom, for concerns of a , and right lower quadrant abdominal pain. Patient notes she felt like symptoms like appear to be becoming a week early and started having abdominal cramping which is since localized to her right lower quadrant. Patient denies any vaginal complaints or vaginal discharge however she feels like her abdomen is swollen. Patient's concern for , she also notes her breasts are swollen and tender and she took 2 home test which were positive. Patient's last menstrual period was approximately 3 weeks prior. No nausea no vomiting no urinary complaints no stool changes. Patient does not currently have a DIAPER FOLDER, and she does not take vitamins. Previously used control for ovarian cysts without much improvement. Abdominal Pain Pain location: RLQ (right adnexa, and right groin) Pain severity: Mild Onset quality: Gradual Timing: Intermittent Progression: Waxing and waning Chronicity: New Context: not sick contacts Associated symptoms: no constipation, no diarrhea, no dysuria, no vaginal bleeding and no vomiting Risk factors: Risk factors: has not had multiple surgeries PAST MEDICAL HISTORY Diagnosis Date Anxiety Asthma Bronchitis Depression Personality disorder (HCC) PAST SURGICAL HISTORY Procedure Laterality Date NONE FAMILY HISTORY Problem Relation Age of Onset No Known Problems Mother No Known Problems Father Diabetes Maternal Grandmother Ovarian cancer Paternal Grandmother Diabetes Other No Known Problems Half-sister No Known Problems Half-sister No Known Problems Half-sister No Known Problems Half-sister No Known Problems Half-brother Social History Tobacco Use Smoking status: Former Current packs/day: 1.00 Types: Cigarettes Smokeless tobacco: Never Vaping Use Vaping status: current everyday user Substances: Nicotine Substance and Sexual Activity Alcohol use: No Drug use: No Sexual activity: Yes control/protection: Condom ALLERGIES Allergen Reactions Amoxicillin Swelling Penicillins Swelling Review of Systems Gastrointestinal: Positive for abdominal pain. Negative for constipation, diarrhea and vomiting. Genitourinary: Negative for dysuria and vaginal bleeding. Physical Exam Vitals BP Pulse Temp Temp src Resp SpO2 Weight Height 07/07/24 2241 07/07/24 2241 07/07/24 2243 07/07/24 2240 07/07/24 2241 07/07/24 2241 07/07/24 2240 07/07/24 2240 116/72 (!) 92 36.8 ?C (98.3 ?F) Temporal 16 100 % 67.1 kg (148 lb) 1.626 m (5' 4) Physical Exam Vitals and nursing note reviewed. Constitutional: General: She is not in acute distress. Appearance: Normal appearance. She is not ill-appearing or toxic-appearing. HENT: Head: Normocephalic and atraumatic. Eyes: General: Right eye: No discharge. Left eye: No discharge. Cardiovascular: Rate and Rhythm: Normal rate and regular rhythm. Heart sounds: Normal heart sounds. No murmur heard. Pulmonary: Effort: No respiratory distress. Abdominal: General: Abdomen is flat. Bowel sounds are normal. Palpations: Abdomen is soft. Tenderness: There is abdominal tenderness. There is no right CVA tenderness, left CVA tenderness or guarding. Negative signs include McBurney's sign. Skin: General: Skin is warm and dry. Neurological: General: No focal deficit present. Mental Status: She is alert and oriented to person, place, and time. Mental status is at baseline. Psychiatric: Mood and Affect: Mood normal. Behavior: Behavior normal. Diagnostic Testing ED Labs Ordered and Reviewed URINALYSIS (WITH MICROSCOPIC) WITH CULTURE IF INDICATED - Abnormal; Notable for the following components: Result Value Ref Range Glucose, Urine Trace (*) Negative Urobilinogen 2.0 EU/dL (*) 0.2-1.0 EU/dL Bacteria Rare (*) None Seen /HPF All other components within normal limits HCG, QUALITATIVE, URINE - Abnormal; Notable for the following components: HCG Qualitative, Urine Positive (*) Negative All other components within normal limits COMPLETE BLOOD COUNT - Abnormal; Notable for the following components: WBC 11.65 (*) 3.70 - 11.00 k/uL All other components within normal limits COMPREHENSIVE METABOLIC PANEL HCG QUANTITATIVE Procedures ED Course / Clinical Impression Clinical Impressions as of 07/08/24 0340 Abdominal pain during in first trimester RLQ abdominal pain MDM / Disposition / Plan [age] year-old female w past history of ovarian cysts, pres (more content not included)... Normal [facility] B-HCG SerPl-aCncon 5 HCG.beta subunit Qn 420.4 m[IU]/mL High <5.0 [facility] Comment on above: Order Comment: Speci men Type: BLOOD SPECIMEN Ordering Facility: [facility] Address: [address] [place] [address] Result Comment: ADRIÁN TITATIVE HCG NORMAL RANGES Weeks of Gestation (Weeks Since LMP) 3 Weeks (5.8-71.2 mIU/mL) 4 Weeks (9.5-750 mIU/mL) 5 Weeks (217-7138 mIU/mL) 6 Weeks (158-07827 mIU/mL) 7 Weeks (3697-104965 mIU/mL) 8 Weeks (40525-267711 mIU/mL) 9 Weeks (99111-006942 mIU/mL) 10 Weeks (94795-645013 mIU/mL) 12 Weeks (29178-287501 mIU/mL) Referenced to 4th IS of [facility] Performed By: #### 2 1198-7 #### [facility] CLIA [id number] [address] [place] [address] [place] CBC panel Auto (Bld)on 07-07 Erythrocyte distribution width (RBC) [Ratio] 13.5 % Normal 11.5-15.0 [facility] Comment on above: Order Comment: Speci men Type: URINE SPECIMEN Ordering Facility: [facility] Address: [address] [place] [address] Performed By: #### 2 4356-8 #### [facility] CLIA [id number] [address] [place] [address] [facility] Hematocrit (Bld) [Volume fraction] 43.3 % Normal 36.0-46.0 [facility] Comment on above: Order Comment: Speci men Type: URINE SPECIMEN Ordering Facility: [facility] Address: [address] [place] [address] Performed By: #### 2 4356-8 #### [facility] CLIA [id number] [address] [place] [address] [facility] [place] Hemoglobin (Bld) [Mass/Vol] 14.4 g/dL Normal 11.5-15.5 [facility] Comment on above: Order Comment: Speci men Type: URINE SPECIMEN Ordering Facility: [facility] Address: [address] [place] [address] Performed By: #### 2 4356-8 #### [facility] CLIA [id number] [address] [place] [address] [place] MCH (RBC) [Entitic mass] 31.2 pg Normal 26.0-34.0 [facility] Comment on above: Order Comment: Speci men Type: URINE SPECIMEN Ordering Facility: [facility] Address: [address] [place] [address] Performed By: #### 2 4356-8 #### [facility] CLIA [id number] [address] [place] [address] [place] MCHC (RBC) [Mass/Vol] 33.3 g/dL Normal 30.5-36.0 [facility] Comment on above: Order Comment: Speci men Type: URINE SPECIMEN Ordering Facility: [facility] Address: [address] [place] [address] Performed By: #### 2 4356-8 #### [facility] CLIA [id number] [address] [place] [address] [place] MCV (RBC) [Entitic vol] 93.9 fL Normal 80.0-100.0 [facility] Comment on above: Order Comment: Speci men Type: URINE SPECIMEN Ordering Facility: [facility] Address: [address] [place] [address] Performed By: #### 2 4356-8 #### [facility] CLIA [id number] [address] [place] [address] [place] Platelet mean volume (Bld) [Entitic vol] 9.9 fL Normal 9.0-12.7 [facility] Comment on above: Order Comment: Speci men Type: URINE SPECIMEN Ordering Facility: [facility] Address: [address] [place] [address] Performed By: #### 2 4356-8 #### [facility] CLIA [id number] [address] [place] [address] [place] Platelets (Bld) [#/Vol] 265 10*3/uL Normal 150-400 [facility] Comment on above: Order Comment: Speci men Type: URINE SPECIMEN Ordering Facility: [facility] Address: [address] [place] [address] Performed By: #### 2 4356-8 #### [facility] CLIA [id number] [address] [place] [address] [place] RBC (Bld) [#/Vol] 4.61 10*6/uL Normal 3.90-5.20 [facility] Comment on above: Order Comment: Speci men Type: URINE SPECIMEN Ordering Facility: [facility] Address: [address] [place] [address] Performed By: #### 2 4356-8 #### [facility] CLIA [id number] [address] [place] [address] [facility] WBC (Bld) [#/Vol] 11.65 10*3/uL High 3.70-11.00 [facility] Comment on above: Order Comment: Speci men Type: URINE SPECIMEN Ordering Facility: [facility] Address: [address] [place] [address] Performed By: #### 2 4356-8 #### [facility] CLIA [id number] [address] [place] [address] [facility] Comprehensive metabolic 2000 panelon 07-07-2024 Albumin [Mass/Vol] 4.3 g/dL Normal 3.9-4.9 [facility] Comment on above: Order Comment: Speci men Type: BLOOD SPECIMEN Ordering Facility: [facility] Address: [address] [place] [address] Performed By: #### 2 4323-8 #### [facility] CLIA [id number] [address] [place] [address] [facility] ALP [Catalytic activity/Vol] 94 U/L Normal 34-123 [facility] Comment on above: Order Comment: Speci men Type: BLOOD SPECIMEN Ordering Facility: [facility] Address: [address] [place] [address] Performed By: #### 2 4323-8 #### [facility] CLIA [id number] [address] [place] [address] [facility] ALT With P-5'-P [Catalytic activity/Vol] 7 U/L Normal 7-38 [facility] Comment on above: Order Comment: Speci men Type: BLOOD SPECIMEN Ordering Facility: [facility] Address: [address] [place] [address] Performed By: #### 2 4323-8 #### [facility] [place] [facility] CLIA [id number] [address] [place] [address] [facility] Anion gap [Moles/Vol] 12 mmol/L Normal 8-15 [facility] Comment on above: Order Comment: Speci men Type: BLOOD SPECIMEN Ordering Facility: [facility] Address: [address] [place] [address] Performed By: #### 2 4323-8 #### [facility] [place] [facility] CLIA [id number] [address] [place] [address] [place] AST With P-5'-P [Catalytic activity/Vol] 12 U/L Low 13-35 [facility] Comment on above: Order Comment: Speci men Type: BLOOD SPECIMEN Ordering Facility: [facility] Address: [address] [place] [address] Performed By: #### 2 4323-8 #### [facility] [place] [facility] CLIA [id number] [address] [place] [address] [place] Bilirubin [Mass/Vol] 1.6 mg/dL High 0.2-1.3 [facility] Comment on above: Order Comment: Speci men Type: BLOOD SPECIMEN Ordering Facility: [facility] Address: [address] [place] [address] Performed By: #### 2 4323-8 #### [facility] [place] [facility] CLIA [id number] [address] [place] [address] [place] Calcium [Mass/Vol] 9.1 mg/dL Normal 8.5-10.2 [facility] Comment on above: Order Comment: Speci men Type: BLOOD SPECIMEN Ordering Facility: [facility] Address: [address] [place] [address] Performed By: #### 2 4323-8 #### [facility] [place] [facility] CLIA [id number] [address] [place] [address] [place] Chloride [Moles/Vol] 103 mmol/L Normal 98-107 [facility] Comment on above: Order Comment: Speci men Type: BLOOD SPECIMEN Ordering Facility: [facility] Address: [address] [place] [address] Performed By: #### 2 4323-8 #### [facility] [place] [facility] CLIA [id number] [address] [place] [address] [place] [facility] CO2 [Moles/Vol] 24 mmol/L Normal 22-30 [facility] Comment on above: Order Comment: Mich martinez Type: BLOOD SPECIMEN Ordering Facility: [facility] Address: [address] [place] [address] Performed By: #### 2 4323-8 #### [facility] [place] CLIA [id number] [address] [place] [address] [place] Creatinine [Mass/Vol] 0.80 mg/dL Normal 0.58-0.96 [facility] Comment on above: Order Comment: Speci men Type: BLOOD SPECIMEN Ordering Facility: [facility] Address: [address] [place] [address] Performed By: #### 2 4323-8 #### [facility] CLIA [id number] [address] Creatinine and Glomerular filtration rate.predicted panel (S/P/Bld) 104 mL/min/1.73m??? Normal >=60 [facility] Comment on above: Order Comment: Speci men Type: BLOOD SPECIMEN Ordering Facility: [facility] Address: [address] [place] [address] Result Comment: Beth mated Glomerular Filtration Rate (eGFR) is calculated using the 2020 CKD-EPI creatinine equation. This equation utilizes serum creatinine, sex, and age as parameters. The creatinine assay has traceable calibration to isotope dilution-mass spectrometry. Refer to KDIGO guidelines for clinical interpretation. In patients with unstable renal function, e.g. those with acute kidney injury, the eGFR may not accurately reflect actual GFR. Performed By: #### 2 4323-8 #### [facility] CLIA [id number] [address] [place] [id number] [place] [facility] Glucose [Mass/Vol] 69 mg/dL Low 74-99 [facility] Comment on above: Order Comment: Speci men Type: BLOOD SPECIMEN Ordering Facility: [facility] Address: [address] [place] [address] Result Comment: The [place] Diabetes Association (ADA) provides guidance for cutoff values for fasting glucose and random glucose. The ADA defines fasting as no caloric intake for at least 8 hours. Fasting plasma glucose results between 100 to 125 mg/dL indicate increased risk for diabetes (prediabetes). Fasting plasma glucose results greater than or equal to 126 mg/dL meet the criteria for diagnosis of diabetes. In the absence of unequivocal hyperglycemia, results should be confirmed by repeat testing. In a patient with classic symptoms of hyperglycemia or hyperglycemic crisis, random plasma glucose results greater than or equal to 200 mg/dL meet the criteria for diagnosis of diabetes. Reference: Standards of Medical Care in Diabetes 2016, [place] Diabetes Association. Diabetes Care. 2016.39(Suppl 1). Performed By: #### 2 4323-8 #### [facility] CLIA [id number] [address] [place], [place] [id number] [place] Potassium [Moles/Vol] 3.6 mmol/L Low 3.7-5.1 [facility] Comment on above: Order Comment: Mich martinez Type: BLOOD SPECIMEN Ordering Facility: [facility] Address: [address] [place] [address] Performed By: #### 2 4323-8 #### [facility] [place] CLIA [id number] [address] [place], [place] [id number] [place] Protein [Mass/Vol] 7.4 g/dL Normal 6.3-8.0 [facility] Comment on above: Order Comment: Mich martinez Type: BLOOD SPECIMEN Ordering Facility: [facility] Address: [address] [place] [address] Performed By: #### 2 4323-8 #### [facility] [place] [facility] CLIA [id number] [address] [place] [address] [place] Sodium [Moles/Vol] 139 mmol/L Normal 136-144 [facility] Comment on above: Order Comment: Mich martinez Type: BLOOD SPECIMEN Ordering Facility: [facility] Address: [address] [place] [address] Performed By: #### 2 4323-8 #### [facility] CLIA [id number] [address] [place] [address] [place] Urea nitrogen [Mass/Vol] 7 mg/dL Normal 7-21 [facility] Comment on above: Order Comment: Speci men Type: BLOOD SPECIMEN Ordering Facility: [facility] Address: [address] [place] [address] Performed By: #### 2 4323-8 #### [facility] CLIA [id number] [address] [place] [address] [place] HCG Preg Ur Qlon 07-07-2024 HCG ( test) Ql (U) Positive Abnormal Negative [facility] Comment on above: Order Comment: Speci men Type: URINE SPECIMEN Ordering Facility: [facility] Address: [address] [place] [address] Result Comment: This test is intended to aid in the early detection of . Very dilute urine samples, as indicated by a low specific gravity, may not contain loan representative levels of hCG. This test detects intact hCG only. This test does not reliably detect hCG degradation products, including free-beta subunit and beta-core fragment. Therefore, this test may show reduced reactivity in urine after 8 weeks gestation. A number of conditions other than , including trophoblastic disease and certain non-trophoblastic neoplasms cause elevated levels of hCG. As with any assay employing mouse antibodies, the possibility exists for interference by human anti-mouse antibodies (HAMA) in the specimen. The test provides a presumptive diagnosis for . Performed By: #### 2 106-3 #### [facility] CLIA [id number] [address] [place] [address] [place] Urinalysis complete panel (U )on 07-07-2024 Bacteria LM.HPF (Urine sed) [#/Area] Rare Abnormal None Seen [facility] Comment on above: Order Comment: Speci men Type: URINE SPECIMEN Ordering Facility: [facility] Address: [address] [place], [place] [address] Performed By: #### 2 4356-8 #### [facility] CLIA [id number] [address] [place] [address] [place] Bilirubin Ql (U) Negative Normal Negative [facility] Comment on above: Order Comment: Speci men Type: URINE SPECIMEN Ordering Facility: [facility] Address: [address] [place] [address] Performed By: #### 2 4356-8 #### [facility] CLIA [id number] [address] [place] [address] [facility] [place] Clarity (Unsp spec) Clear Normal Clear [facility] Comment on above: Order Comment: Speci men Type: URINE SPECIMEN Ordering Facility: [facility] Address: [address] [place] [address] Performed By: #### 2 4356-8 #### [facility] CLIA [id number] [address] [place] [address] [facility] Color (U) Yellow Normal Yellow [facility] Comment on above: Order Comment: Speci men Type: URINE SPECIMEN Ordering Facility: [facility] Address: [address] [place] [address] Performed By: #### 2 4356-8 #### [facility] CLIA [id number] [address] [place] [address] [facility] Epithelial cells LM.HPF (Urine sed) [#/Area] Few Normal [facility] Comment on above: Order Comment: Speci men Type: URINE SPECIMEN Ordering Facility: [facility] Address: [address] [place] [address] Performed By: #### 2 4356-8 #### [facility] CLIA [id number] [address] [place] [address] [facility] [place] Glucose Test strip (U) [Mass/Vol] Trace Abnormal Negative [facility] Comment on above: Order Comment: Speci men Type: URINE SPECIMEN Ordering Facility: [facility] Address: [address] [place] [address] Performed By: #### 2 4356-8 #### [facility] CLIA [id number] [address] [place] [address] [facility] [place] Hemoglobin Ql (U) Negative Normal Negative [facility] Comment on above: Order Comment: Speci men Type: URINE SPECIMEN Ordering Facility: [facility] Address: [address] [place] [address] Performed By: #### 2 4356-8 #### [facility] CLIA [id number] [address] [place] [address] [place] Ketones Ql (U) Negative Normal Negative [facility] Comment on above: Order Comment: Speci men Type: URINE SPECIMEN Ordering Facility: [facility] Address: [address] [place] [address] Performed By: #### 2 4356-8 #### [facility] CLIA [id number] [address] [place] [address] [place] Leukocyte esterase Test strip Ql (U) Negative Normal Negative [facility] Comment on above: Order Comment: Speci men Type: URINE SPECIMEN Ordering Facility: [facility] Address: [address] [place] [address] Performed By: #### 2 4356-8 #### [facility] [place] [facility] CLIA [id number] [address] [place] [address] [place] Nitrite Ql (U) Negative Normal Negative [facility] Comment on above: Order Comment: Speci men Type: URINE SPECIMEN Ordering Facility: [facility] Address: [address] [place] [address] Performed By: #### 2 4356-8 #### [facility] CLIA [id number] [address] [place] [address] [place] pH (U) 6.5 [pH] Normal 5.0-8.0 [facility] Comment on above: Order Comment: Speci men Type: URINE SPECIMEN Ordering Facility: [facility] Address: [address] [place] [address] Performed By: #### 2 4356-8 #### [facility] [facility] CLIA [id number] [address] [place] [address] [place] Protein (U) [Mass/Vol] Negative Normal Negative [facility] Comment on above: Order Comment: Speci men Type: URINE SPECIMEN Ordering Facility: [facility] Address: [address] [place] [address] Performed By: #### 2 4356-8 #### [facility] CLIA [id number] [address] [place] [address] RBC LM.HPF (Urine sed) [#/Area] 0-3 /HPF Normal 0-3 /HPF [facility] Comment on above: Order Comment: Speci men Type: URINE SPECIMEN Ordering Facility: [facility] Address: [address] [place] [address] Performed By: #### 2 4356-8 #### [facility] CLIA [id number] [address] Specific gravity (U) [Rel density] 1.020 Normal 1.005-1.030 [facility] Comment on above: Order Comment: Speci men Type: URINE SPECIMEN Ordering Facility: [facility] Address: [address] [place] [address] Performed By: #### 2 4356-8 #### [facility] CLIA [id number] [address] [place] [address] Urobilinogen Ql (U) 2.0 EU/dL Abnormal 0.2-1.0 EU/dL [facility] Comment on above: Order Comment: Speci men Type: URINE SPECIMEN Ordering Facility: [facility] Address: [address] [place] [address] Performed By: #### 2 4356-8 #### [facility] CLIA [id number] [address] [place] [address] [facility] WBC LM.HPF (Urine sed) [#/Area] 0-5 /HPF Normal 0-5 /HPF [facility] Comment on above: Order Comment: Speci men Type: URINE SPECIMEN Ordering Facility: [facility] Address: [address] [place] [address] Performed By: #### 2 4356-8 #### [facility] [place] [facility] CLIA [id number] [address] [place] [address] [place] CBC W Auto Differential pane l (Bld)on 06-12-2024 Basophils (Bld) [#/Vol] 0 10*3/uL 0.0 - 0.2 10*3/uL [facility] Basophils/100 WBC (Bld) 0.3 % 0.0 - 2.0 % [facility] Eosinophils (Bld) [#/Vol] 0.1 10*3/uL 0.0 - 0.5 10*3/uL [facility] Eosinophils/100 WBC (Bld) 1.3 % 0.0 - 6.0 % [facility] Erythrocyte distribution width (RBC) [Ratio] 13.4 % 11.5 - 15.0 % [facility] Hematocrit (Bld) [Volume fraction] 35.8 % 35.0 - 47.0 % [facility] Hemoglobin (Bld) [Mass/Vol] 12.2 g/dL 11.7 - 16.0 g/dL [facility] Immature granulocytes (Bld) [#/Vol] 0 10*3/uL NINF - 0.1 10*3/uL [facility] Immature granulocytes/100 WBC (Bld) 0.3 % 0.0 - 2.0 % [facility] Interpretation and review of laboratory results Normal [facility] Lymphocytes (Bld) [#/Vol] 2.6 10*3/uL 1.0 - 4.3 10*3/uL [facility] Lymphocytes/100 WBC (Bld) 33.2 % 15.0 - 45.0 % [facility] MCH (RBC) [Entitic mass] 31.1 pg 26.0 - 34.0 pg [facility] MCHC (RBC) [Mass/Vol] 34.1 % 30.5 - 36.0 % [facility] MCV (RBC) [Entitic vol] 91.3 fL 77.0 - 99.0 fL [facility] Monocytes (Bld) [#/Vol] 0.5 10*3/uL 0.0 - 0.9 10*3/uL [facility] Monocytes/100 WBC (Bld) 5.8 % 5.0 - 13.0 % [facility] Neutrophils (Bld) [#/Vol] 4.6 10*3/uL 1.8 - 7.5 10*3/uL [facility] Neutrophils/100 WBC (Bld) 59.1 % 38.0 - 82.0 % [facility] Nucleated RBC/100 WBC (Bld) [Ratio] 0 % [facility] Platelet mean volume (Bld) [Entitic vol] 9.9 fL 9.0 - 12.7 fL [facility] Comment on above: MPV is a calculated measurement using platelet volume ratio Platelets (Bld) [#/Vol] 255 10*3/uL 140 - 440 10*3/uL [facility] RBC (Bld) [#/Vol] 3.92 10*6/uL 3.80 - 5.2 0 10*6/uL [facility] WBC (Bld) [#/Vol] 7.7 10*3/uL 3.6 - 10.7 10*3/uL [facility] CBC WITH AUTO DIFFERENTIALon 06-12-2024 Basophils (Bld) [#/Vol] 0.0 10*3/uL Normal 0.0-0.2 [facility] Comment on above: Performed By: #### Drew [id number], [id number], LAB17 #### Ibm Bpm Architect: SCOTT WILLSON ([phone]) [facility] ([facility]) [address] [place] [address] [place] Basophils/100 WBC (Bld) 0.3 % Normal 0.0-2.0 [facility] Comment on above: Performed By: #### Drew [id number], [id number], LAB17 #### Ibm Bpm Architect: SCOTT WILLSON ([phone]) [facility] ([facility]) [address] [place] [address] [place] Eosinophils (Bld) [#/Vol] 0.1 10*3/uL Normal 0.0-0.5 [facility] Comment on above: Performed By: #### Drew [id number], [id number], LAB17 #### Ibm Bpm Architect: SCOTT WILLSON ([phone]) [facility] ([facility]) [address] [place] [address] [place] Eosinophils/100 WBC (Bld) 1.3 % Normal 0.0-6.0 [facility] Comment on above: Performed By: #### Drew [id number], [id number], LAB17 #### Ibm Bpm Architect: SCOTT WILLSON ([phone]) [facility] ([facility]) [address] [place] [address] Erythrocyte distribution width (RBC) [Ratio] 13.4 % Normal 11.5-15.0 [facility] Comment on above: Performed By: #### Drew [id number], [id number], LAB17 #### Ibm Bpm Architect: SCOTT WILLSON ([id number]) [facility] ([facility]) [address] [place] [address] Hematocrit (Bld) [Volume fraction] 35.8 % Normal 35.0-47.0 [facility] Comment on above: Performed By: #### Drew [id number], [id number], LAB17 #### Ibm Bpm Architect: SCOTT WILLSON ([id number]) [facility] ([facility]) [address] [place] [address] Hemoglobin (Bld) [Mass/Vol] 12.2 g/dL Normal 11.7-16.0 [facility] Comment on above: Performed By: #### Drew [id number], [id number], LAB17 #### Ibm Bpm Architect: SCOTT WILLSON ([id number]) [facility] ([facility]) [address] [place] [address] IMMATURE GRANS % 0.3 % Normal 0.0-2.0 [facility] Comment on above: Performed By: #### Drew [id number], [id number], LAB17 #### Ibm Bpm Architect: SCOTT WILLSON ([id number]) [facility] ([facility]) [address] [place] [address] IMMATURE GRANS ABSOLUTE 0.0 10*3/uL Normal <0.1 [facility] Comment on above: Performed By: #### Drew [id number], [id number], LAB17 #### Ibm Bpm Architect: SCOTT WILLSON ([id number]) [facility] ([facility]) [address] [place] [address] [place] Lymphocytes (Bld) [#/Vol] 2.6 10*3/uL Normal 1.0-4.3 [facility] Comment on above: Performed By: #### L [id number], [id number], LAB17 #### Ibm Bpm Architect: SCOTT WILLSON ([id number]) [facility] ([facility]) [address] [place] [address] Lymphocytes/100 WBC (Bld) 33.2 % Normal 15.0-45.0 [facility] Comment on above: Performed By: #### Drew [id number], [id number], LAB17 #### Ibm Bpm Architect: SCOTT WILLSON ([phone]) [facility] ([facility]) [address] [place] [address] MCH (RBC) [Entitic mass] 31.1 pg Normal 26.0-34.0 [facility] Comment on above: Performed By: #### Drew [id number], [id number], LAB17 #### Ibm Bpm Architect: CSOTT WILLSON ([id number]) [facility] ([facility]) [address] [place] [address] MCHC 34.1 % Normal 30.5-36.0 [facility] Comment on above: Performed By: #### Drew [id number], [id number], LAB17 #### Ibm Bpm Architect: SCOTT WILLSON ([phone]) [facility] ([facility]) [address] [place] [address] MCV (RBC) [Entitic vol] 91.3 fL Normal 77.0-99.0 [facility] Comment on above: Performed By: #### L [id number], [id number], LAB17 #### Ibm Bpm Architect: SCOTT WILLSON ([id number]) [facility] ([facility]) [address] [place] [address] Monocytes (Bld) [#/Vol] 0.5 10*3/uL Normal 0.0-0.9 [facility] Comment on above: Performed By: #### L [id number], [id number], LAB17 #### Ibm Bpm Architect: SCOTT WILLSON ([id number]) [facility] ([facility]) [address] [place] [address] [place] Monocytes/100 WBC (Bld) 5.8 % Normal 5.0-13.0 [facility] Comment on above: Performed By: #### L [id number], [id number], LAB17 #### Ibm Bpm Architect: SCOTT WILLSON ([id number]) [facility] ([facility]) [address] [place] [address] [place] NEUTROPHILS ABSOLUTE 4.6 10*3/uL Normal 1.8-7.5 [facility] Comment on above: Performed By: #### Drew [id number], [id number], LAB17 #### Ibm Bpm Architect: SCOTT WILLSON ([id number]) [facility] ([facility]) [address] [place] [address] [place] Neutrophils/100 WBC (Bld) 59.1 % Normal 38.0-82.0 [facility] Comment on above: Performed By: #### Drew [id number], [id number], LAB17 #### Ibm Bpm Architect: SCOTT WILLSON ([phone]) [facility] ([facility]) [address] [place] [address] [place] NRBC 0.0 /100 WBCs Normal 0.0-2.0 [facility] Comment on above: Performed By: #### L [id number], [id number], LAB17 #### Ibm Bpm Architect: SCOTT WILLSON ([id number]) [facility] WALLVICTOR MANUEL [facility] ([facility]) [address] [place] [address] Platelet mean volume (Bld) [Entitic vol] 9.9 fL Normal 9.0-12.7 [facility] Comment on above: Result Comment: MPV is a calculated measurement using platelet volume ratio Performed By: #### L [id number], [id number], LAB17 #### Ibm Bpm Architect: SCOTT WILLSON ([id number]) [facility] ([facility]) [address] [place] [address] Platelets (Bld) [#/Vol] 255 10*3/uL Normal 140-440 [facility] Comment on above: Performed By: #### Drew [id number], [id number], LAB17 #### Ibm Bpm Architect: SCOTT WILLSON ([id number]) [facility] ([facility]) [address] [place] [address] RBC (Bld) [#/Vol] 3.92 10*6/uL Normal 3.80-5.20 [facility] Comment on above: Performed By: #### Drew [id number], [id number], LAB17 #### Ibm Bpm Architect: SCOTT WILLSON ([id number]) [facility] ([facility]) [address] [place] [address] WBC (Bld) [#/Vol] 7.7 10*3/uL Normal 3.6-10.7 [facility] Comment on above: Performed By: #### Drew [id number], [id number], LAB17 #### Ibm Bpm Architect: SCOTT WILLSON ([id number]) [facility] ([facility]) [address] [place] [address] COMPREHENSIVE METABOLIC PANE [place] 06-12-2024 Albumin [Mass/Vol] 3.7 g/dL Normal 3.5-5.0 [facility] Comment on above: Performed By: #### Drew [id number], [id number], LAB17 #### Ibm Bpm Architect: SCOTT WILLSON ([phone]) [facility] ([facility]) [address] [place] [address] ALP [Catalytic activity/Vol] 80 U/L Normal 40-150 [facility] Comment on above: Performed By: #### Drew [id number], [id number], LAB17 #### Ibm Bpm Architect: SCOTT WILLSON ([id number]) [facility] ([facility]) [address] [place] [address] ALT [Catalytic activity/Vol] 11 U/L Normal <30 [facility] Comment on above: Performed By: #### L [id number], [id number], LAB17 #### Ibm Bpm Architect: SCOTT WILLSON ([id number]) [facility] ([facility]) [address] [place] [address] Anion gap [Moles/Vol] 7 mmol/L Normal 3-13 [facility] Comment on above: Performed By: #### L [id number], [id number], LAB17 #### Ibm Bpm Architect: SCOTT WILLSON ([phone]) [facility] ([facility]) [address] [place] [address] AST [Catalytic activity/Vol] 16 U/L Normal <34 [facility] Comment on above: Performed By: #### Drew [id number], [id number], LAB17 #### Ibm Bpm Architect: SCOTT WILLSON ([phone]) [facility] ([facility]) [address] [place] [address] [place] Bilirubin [Mass/Vol] 1.9 mg/dL High <1.2 [facility] Comment on above: Performed By: #### Drew [id number], [id number], [id number] #### Ibm Bpm Architect: SCOTT WILLSON ([id number]) [facility] (SWRLAB) [address] [place] [address] Calcium [Mass/Vol] 8.8 mg/dL Normal 8.4-10.2 [facility] Comment on above: Performed By: #### L [id number], [id number], [id number] #### Ibm Bpm Architect: SCOTT WILLSON ([id number]) [facility] (SWRLAB) [address] [place] [address] [place] Chloride [Moles/Vol] 110 mmol/L High 98-107 [facility] Comment on above: Performed By: #### L [id number], [id number], [id number] #### Ibm Bpm Architect: SCOTT WILLSON ([id number]) [facility] (SWRLAB) [address] [place] [address] CO2 [Moles/Vol] 25 mmol/L Normal 22-29 [facility] Comment on above: Performed By: #### L [id number], [id number], [id number] #### Ibm Bpm Architect: SCOTT WILLSON ([id number]) [facility] (SWRLAB) [address] [place] [address] Creatinine [Mass/Vol] 0.75 mg/dL Normal 0.57-1.11 [facility] Comment on above: Performed By: #### Drew [id number], [id number], [id number] #### Ibm Bpm Architect: SCOTT WILLSON ([phone]) [facility] MORGANT[facility] (SWRLAB) [address] [place] [address] GLOMERULAR FILTRATION RATE ML/MIN/1.73 SQ M.PREDICTED >90.0 Normal >60.0 [facility] Comment on above: Result Comment: Calc ulation based on the Chronic Kidney Disease Epidemiology Collaboration (CKD-EPI) equation refit without adjustment for race Performed By: #### L [id number], [id number], [id number] #### Ibm Bpm Architect: SCOTT WILLSON ([id number]) [facility]GANT[facility] (SWRLAB) [address] [place] [address] [place] Glucose [Mass/Vol] 91 mg/dL Normal 74-100 [facility] Comment on above: Performed By: #### L [id number], [id number], [id number] #### Ibm Bpm Architect: SCOTT WILLSON ([phone]) [facility] [place] (SWRLAB) [address] [place] [address] [place] Potassium [Moles/Vol] 3.5 mmol/L Normal 3.5-5.1 [facility] Comment on above: Result Comment: [facility] potassium values may be up to 0.5 mmol/L lower than serum values. Performed By: #### L [id number], [id number], [id number] #### Ibm Bpm Architect: SCOTT WILLSON ([phone]) [facility] (SWRLAB) [address] [place] [address] Protein [Mass/Vol] 6.7 g/dL Normal 6.4-8.3 [facility] Comment on above: Performed By: #### Drew [id number], [id number], [id number] #### Ibm Bpm Architect: SCOTT WILLSON ([id number]) [facility]GANT[facility] (SWRLAB) [address] [place] [address] Sodium [Moles/Vol] 142 mmol/L Normal 136-145 [facility] Comment on above: Performed By: #### Drew [id number], [id number], [id number] #### Ibm Bpm Architect: SCOTT WILLSON ([id number]) [facility]GANT[facility] (SWRLAB) [address] [place] [address] Urea nitrogen [Mass/Vol] 10 mg/dL Normal 8-21 [facility] Comment on above: Performed By: #### Drew [id number], [id number], [id number] #### Ibm Bpm Architect: SCOTT WILLSON ([id number]) [facility]GANT[facility] (SWRLAB) [address] [place] [address] Comprehensive metabolic 1998 panelon 06-12-2024 Albumin [Mass/Vol] 3.7 g/dL 3.5 - 5.0 g/dL [facility] ALP [Catalytic activity/Vol] 80 U/L 40 - 150 U/L [facility] ALT [Catalytic activity/Vol] 11 U/L NINF - 30 U/L [facility] Anion gap [Moles/Vol] 7 mmol/L 3 - 13 mmol/L [facility] AST [Catalytic activity/Vol] 16 U/L NINF - 34 U/L [facility] Bilirubin [Mass/Vol] 1.9 mg/dL High NINF - 1.2 mg/dL [facility] Calcium [Mass/Vol] 8.8 mg/dL 8.4 - 10. 2 mg/dL [facility] Chloride [Moles/Vol] 110 mmol/L High 98 - 10 7 mmol/L [facility] CO2 [Moles/Vol] 25 mmol/L 22 - 29 mmol/L [facility] Creatinine [Mass/Vol] 0.75 mg/dL 0.57 - 1.11 mg/dL [facility] GFR/1.73 sq M.predicted (S/P/Bld) [Vol rate/Area] - PINF [facility] Comment on above: Calculation based on the Chronic Kidney Disease Epidemiology Collaboration (CKD-EPI) equation refit without adjustment for race Glucose [Mass/Vol] 91 mg/dL 74 - 100 mg/dL [facility] Interpretation and review of laboratory results Abnormal [facility] Potassium [Moles/Vol] 3.5 mmol/L 3.5 - 5.1 mmol/L [facility] Comment on above: Plasma potassium lazarus ues may be up to 0.5 mmol/L lower than serum values. Protein [Mass/Vol] 6.7 g/dL 6.4 - 8.3 g/dL [facility] Sodium [Moles/Vol] 142 mmol/L 136 - 145 mmol/L [facility] Urea nitrogen [Mass/Vol] 10 mg/dL 8 - 21 mg/dL [facility] D-DIMER,QUANTITATIVEon 06-12 D-DIMER, INNOVANCE 0.26 mg/L Normal <0.50 [facility] Comment on above: Result Comment: AMIE Martins COMMENTS: [employer] D-Dimer values of <0.50 mg/L FEU can be used in combination with a pre-test probability model (e.g. Well's) to exclude pulmonary embolism (PE) disease, as well as an aid in the diagnosis of deep vein thrombosis (DVT). Performed By: #### L [id number], [id number], [id number] #### Ibm Bpm Architect: SCOTT WILLSON ([id number]) [facility] (SWLakshmiLAB) [address] [place] [address] ECG 12-LEADon 06-12-2024 ECG 12-LEAD IMPRESSION: EKG shows sinus arrhythmia, normal axis, normal ND QRS and QTC intervals. No STEMI, no SVT, no LVH. No old EKG. Electronically Signed On 06-12-2024 15:38:55 EST by Keyona Conrad Normal [facility] ED Nursing Noteon 06-12-2024 ED Nursing Note Since last night c/o chest pain with radiation down both arms, cough, shortness of breath and dizziness. EKG done on arrival [facility] ED Provider Noteon ED Provider Note EMERGENCY DEPARTMENT ENCOUNTER Pt Name: Gabe Viera Birthdate 1995 Date of evaluation: 06/12/2024 ED Provider: Keyona Conrad MD CHIEF COMPLAINT Chief Complaint Patient presents with Chest Pain HISTORY OF PRESENT ILLNESS (Location/Symptom, Timing/Onset, Context/Setting, Quality, Duration, Modifying Factors, Severity) Note limiting factors. I wore appropriate PPE for the entirety of this encounter. HPI Gabe Viera is a 28 y.o. who presents to the emergency department with pleuritic chest pain Patient has a history of cigarette smoking which she is gradually replacing with vaping. Drinks alcohol. 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 Patient says that for the last 3 days she has had pleuritic chest tightness, only lasts a few seconds at a time and radiates down her right arm. She gets lightheaded occasionally when this happens but denies any palpitations. She has no focal numbness or focal weakness in the arms or legs no slurred speech no facial droop no blurry vision no double vision no syncope no presyncope. She also has a cough and has been short of breath for 3 days. Her has a pneumonia and he is sitting right next to her with no mask on. Patient denies any fevers or chills. Patient says the chest tightness can happen at random, for no apparent reason. It is not associated with exertion, it is only rarely associated with coughing. Patient denies any recent travel or recent immobility. She has no leg pain orthopnea or paroxysmal nocturnal dyspnea. She has no calf pain she has no history of DVT or PE. She has no history of coronary artery disease and there is no family history of early CAD either. She denies any hemoptysis, denies any wheezing. Denies any fevers. She is not tachycardic or tachypneic or hypoxic. Nursing Notes were reviewed. Limitations to history: None Outside historians: None REVIEW OF SYSTEMS Review of Systems Pertinent positives and negatives as per HPI PAST MEDICAL HISTORY Past Medical History: Diagnosis Date Depression SURGICAL HISTORY History reviewed. No pertinent surgical history. CURRENT MEDICATIONS Previous Medications NORGESTIMATE-ETHINY L ESTRADIOL (SPRINTEC 28) 0.25-35 MG-MCG TABLET Take 1 tablet by mouth daily. ALLERGIES Penicillins FAMILY HISTORY Family History Problem Relation Name Age of Onset Ovarian cancer Paternal Grandmother Breast cancer Paternal Great-Grandmother Colon cancer Neg Hx Uterine cancer Neg Hx SOCIAL HISTORY Social History Socioeconomic History Marital status: Single Tobacco Use Smoking status: Every Day Current packs/day: 1.00 Types: Cigarettes Smokeless tobacco: Never Vaping Use Vaping status: Every Day Substance and Sexual Activity Alcohol use: Yes Drug use: Never Sexual activity: Yes Social Drivers of Health Financial Resource Strain: Low Risk (10/25/2022) Overall Financial Resource Strain (CARDIA) Difficulty of Paying Living Expenses: Not very hard Food Insecurity: No Food Insecurity (10/25/2022) Hunger Vital Sign Worried About Running Out of Food in the Last Year: Never true Ran Out of Food in the Last Year: Never true Transportation Needs: No Transportation Needs (10/25/2022) PRAPARE - Transportation Lack of Transportation (Medical): No Lack of Transportation (Non-Medical): No Physical Activity: Inactive (10/25/2022) Exercise Vital Sign Days of Exercise per Week: 0 days Minutes of Exercise per Session: 0 min Stress: No Stress Concern Present (10/25/2022) [employer] - Occupational Stress Questionnaire Feeling of Stress : Not at all Intimate Partner Violence: Not At Risk (10/25/2022) Humiliation, Afraid, Rape, and Kick questionnaire Fear of Current or Ex-Partner: No Emotionally Abused: No Physically Abused: No Sexually Abused: No Housing Stability: Low Risk (10/25/2022) Housing Stability Vital Sign Unable to Pay for Housing in the Last Year: No Number of Places Lived in the Last Year: 1 Unstable Housing in the Last Year: No PHYSICAL EXAM ED Triage Vitals [06/12/24 1450] Temp Heart Rate Resp BP 36.6 ?C (97.8 ?F) 65 14 (!) 151/71 SpO2 Temp Source Heart Rate Source Patient Position 98 % Oral -- -- BP Location FiO2 (%) -- -- Physical Exam General: WDWN adult in NAD. Non-toxic appearing HENT: Head NCAT, EOMI with no erythema, swelling or discharge. Normal visual acuity bilaterally. No diplopia bilaterally. No nystagmus bilaterally. No visual field cuts on confrontational testing bilaterally oropharyngeal mucus membranes moist, pink, no exudate Neck: Full ROM, supple, no rigidity Cardio: RRR, nl s1 s2 no m/r/g, extremities warm, dry, well (more content not included)... Normal [facility] Fibrin D-dimer FEU (PPP) [Ma ss/Vol]on 06-12-2024 Interpretation and review of laboratory results Normal [facility] D-Dimer values of <0.50 mg/L FEU can be used in combination with a pre-test probability model (e.g. Well's) to exclude pulmonary embolism (PE) disease, as well as an aid in the diagnosis of deep vein thrombosis (DVT). [facility] HCG QUALITATIVE URINEon Beta HCG ( test) Ql (U) Negative Normal Negative [facility] Comment on above: Result Comment: Plea se note: Very dilute urine specimens, as indicated by a low specific gravity, may not contain loan representative levels of hCG. If is still suspected, a first morning urine specimen should be collected 48 hours later and tested. ORDER COMMENTS: is the most common reason for HCG in urine, although choriocarcinoma, hydatidiform mole, and certain nontrophoblastic malignancies also result in detectable urinary HCG levels. Sensitivity = 20mIU/mL. Performed By: #### L [id number], [id number], [id number] #### Ibm Bpm Architect: SCOTT WILLSON ([id number]) [facility] DANILO (SWRLAB) [address] [place] [address] HIGH SENSITIVITY TROPONIN, S ERIAL BASELINEon 06-12-2024 TROPONIN HS SERIAL BASELINE <3 Normal <=14 [facility] Comment on above: Result Comment: In i ndividuals presenting with symptoms > 2h, a baseline troponin <= 5 ng/L suggests acute cardiac injury is unlikely and further serial testing is generally not indicated. Performed By: #### L [id number], [id number], [id number] #### Ibm Bpm Architect: SCOTT WILLSON ([id number]) [facility] (SWRLAB) [address] [place] [address] HIGH SENSITIVITY TROPONIN, S ERIAL, SECOND TESTon 06-12-2024 2H TROPONIN HS (SERIAL 2ND TROPONIN) <3 Normal <=14 [facility] Comment on above: Result Comment: Delt a value was unable to be calculated as both baseline and serial troponin tests were below the level of quantitation. As both baseline and 2h troponin values are below the level of quantitation, acute cardiac injury is unlikely. Performed By: #### L [id number] #### Ibm Bpm Architect: SCOTT WILLSON ([id number]) [facility] (SWRLAB) [address] [place] [address] Laboratory - Chemistry and C hemistry - challengeOrdered By: Tutu Clark on 06-12-2024 Beta HCG ( test) Ql Negative Negative [facility] Comment on above: Please note: Very di lute urine specimens, as indicated by a low specific gravity, may not contain loan representative levels of hCG. If is still suspected, a first morning urine specimen should be collected 48 hours later and tested. Beta HCG ( test) Ql (U) is the most common reason for HCG in urine, although choriocarcinoma, hydatidiform mole, and certain nontrophoblastic malignancies also result in detectable urinary HCG levels. Sensitivity = 20mIU/mL. [facility] Laboratory - Coagulationon 0 06-12-2024 Fibrin D-dimer FEU (PPP) [Mass/Vol] 0.26 mg/L NINF - 0.50 mg/L [facility] - Microbiology an d Antimicrobial susceptibilityon 06-12-2024 FLUAV RNA JOSEFA+probe Ql (Resp) Not detected Not Detected [facility] FLUBV RNA JOSEFA+probe Ql (Resp) Not detected Not Detected [facility] RSV RNA JOSEFA+probe Ql (Resp) Not detected Not Detected [facility] SARS-CoV-2 (COVID-19) RNA JOSEFA+probe Ql (Resp) Not detected Not Detected [facility] SARS-CoV-2 (COVID-19) RNA JOSEFA+probe Ql (Unsp spec) Methodology: real-time, RT-PCR The SARS-CoV-2, Flu A/B, and RSV Combo assay is intended for in vitro diagnostic use under the FDA Emergency Use Authorization (EUA). This test has not been FDA cleared or approved. In compliance with this authorization, please visit www.fda.gov/media/6 75255/download or www.fda.gov/media/ 47383/download to access the applicable information sheets. [facility] NT PRO BNPon 06-12-2024 Natriuretic peptide B (Bld) [Mass/Vol] 95 pg/mL Normal <125 [facility] Comment on above: Performed By: #### L [id number], [id number], [id number] #### Ibm Bpm Architect: SCOTT WILLSON ([id number]) [facility]) [address] [place] [address] Natriuretic peptide B [Mass/ Vol]on 06-12-2024 Interpretation and review of laboratory results Normal [facility] Natriuretic peptide B (Bld) [Mass/Vol] 95 pg/mL NINF - 125 pg/mL [facility] No Panel Informationon 06-12 2h Troponin HS (Serial 2nd Troponin) ng/L [facility] ng/L [facility] Comment on above: Delta value was unab le to be calculated as both baseline and serial troponin tests were below the level of quantitation. As both baseline and 2h troponin values are below the level of quantitation, acute cardiac injury is unlikely. Interpretation and review of laboratory results Normal [facility] Interpretation and review of laboratory results Normal [facility] Troponin HS Serial Baseline ng/L NINF - 14 ng/L [facility] Comment on above: In individuals prese nting with symptoms > 2h, a baseline troponin <= 5 ng/L suggests acute cardiac injury is unlikely and further serial testing is generally not indicated. [facility] P Wilbur 21 degrees [facility] ND Interval 173 ms [facility] QRS Wilbur 70 degrees [facility] QRSD Inter[facility] 78 [facility] QT Interval 381 ms [facility] QTC Interval 397 ms [facility] T Wave Wilbur 31 degrees [facility] EKG shows sinus arrhythmia, normal axis, normal ND QRS and QTC intervals. No STEMI, no SVT, no LVH. No old EKG. Electronically Signed On 06-12-2024 15:38:55 EST by Keyona Conrad CV Keyona Murphy MD - 06/12/2024 IMPRESSION: EKG shows sinus arrhythmia, normal axis, normal ND QRS and QTC intervals. No STEMI, no SVT, no LVH. No old EKG. Electronically Signed On 06-12-2024 15:38:55 EST by Keyona Conrad [facility] No Panel InformationOrdered By: Tutu Clark on 06-12-2024 [facility] SARS-COV-2, FLU A/B, AND RSV COMBOon 06-12-2024 SARS-CoV-2 (COVID-19) RNA JOSEFA+probe Ql (Unsp spec) SARS-COV-2 Reference Not Detected Not Detected RESPIRATORY SYNCYTIAL VIRUS Reference Not Detected Not Detected INFLUENZA A (CEPHEID) Reference Not Detected Not Detected INFLUENZA B (CEPHEID) Reference Not Detected Not Detected ORDER COMMENTS: Methodology: real-time, RT-PCR The SARS-CoV-2, Flu A/B, and RSV Combo assay is intended for in vitro diagnostic use under the FDA Emergency Use Authorization (EUA). This test has not been FDA cleared or approved. In compliance with this authorization, please visit www.fda.gov/media/ 23156/download or www.fda.gov/media/ 60276/download to access the applicable information sheets. Normal [facility] Comment on above: Performed By: #### L [id number] #### Ibm Bpm Architect: SCOTT WILLSON ([id number]) [facility] ([facility]) [address] [place] [address] SARS-CoV-2, Flu A/B, and RSV Comboon 06-12-2024 Interpretation and review of laboratory results Normal [facility] Vital signson 06-12-2024 Heart rate 65 /min bpm [facility] XR Chest 2 Viewson No focal consolidation or pulmonary edema. Report Dictated on Electronically Signed By: Rene Ruiz MD Electronically Signed Date/Time: 06/12/2024 4:41 PM [facility] Patient Name: GABE VIERA : 1995 Exam Date/Time: 06/12/2024 16:09 Procedure: XR CHEST 2 VIEWS Ordering Provider: CONRAD DOUGLAS Reason For Exam: chest pain, intermittent pleuritic CHEST: CLINICAL INDICATION: chest pain, intermittent pleuritic TECHNIQUE: PA and Lateral COMPARISON: None FINDINGS: No focal consolidation or pulmonary edema. No pleural effusions or pneumothorax. The cardiac and mediastinal silhouettes are normal. The osseous structures are unremarkable. [facility] Rene Ruiz MD - 06/12/2024 Patient Name: GABE VIERA : 1995 Exam Date/Time: 06/12/2024 16:09 Procedure: XR CHEST 2 VIEWS Ordering Provider: CONRAD DOUGLAS Reason For Exam: chest pain, intermittent pleuritic CHEST: CLINICAL INDICATION: chest pain, intermittent pleuritic TECHNIQUE: PA and Lateral COMPARISON: None FINDINGS: No focal consolidation or pulmonary edema. No pleural effusions or pneumothorax. The cardiac and mediastinal silhouettes are normal. The osseous structures are unremarkable. IMPRESSION: No focal consolidation or pulmonary edema. Report Dictated on Electronically Signed By: Rene Ruiz MD Electronically Signed Date/Time: 06/12/2024 4:41 PM [facility] Radiology Study observation (narrative) [facility] XR Chest 2 ViewsOrdered By: Rene Ruiz on 06-12-2024 [facility] [employer] Work Phone: CBC panel Auto (Bld)on 04-30 Erythrocyte distribution width (RBC) [Ratio] 12.5 % 11.5 - 15.0 % [facility] Hematocrit (Bld) [Volume fraction] 41.1 % 36.0 - 46.0 % [facility] Hemoglobin (Bld) [Mass/Vol] 13.5 g/dL 11.5 - 15.5 g/dL [facility] Interpretation and review of laboratory results Abnormal [facility] MCH (RBC) [Entitic mass] 30.7 pg 26.0 - 34.0 pg [facility] MCHC (RBC) [Mass/Vol] 32.8 g/dL 30.5 - 36.0 g/dL [facility] MCV (RBC) [Entitic vol] 93.4 fL 80.0 - 100.0 fL [facility] Platelet mean volume (Bld) [Entitic vol] 10.1 fL 9.0 - 12.7 fL [facility] Platelets (Bld) [#/Vol] 260 10*3/uL [facility] RBC (Bld) [#/Vol] 4.40 10*6/uL 3.90 - 5.2 0 m/uL [facility] WBC (Bld) [#/Vol] 11.96 10*3/uL High [facility] Erythrocyte distribution width (RBC) [Ratio] 12.5 % Normal 11.5-15.0 [facility] Comment on above: Order Comment: Mich martinez Type: BLOOD SPECIMEN Ordering Facility: [facility] Address: [address] [place] [address] Performed By: #### 5 8410-2 #### [facility] CLIA [id number] [address] [place] [address] [place] Hematocrit (Bld) [Volume fraction] 41.1 % Normal 36.0-46.0 [facility] Comment on above: Order Comment: Mich martinez Type: BLOOD SPECIMEN Ordering Facility: [facility] Address: [address] [place] [address] Performed By: #### 5 8410-2 #### [facility] CLIA [id number] [address] [place] [address] [place] Hemoglobin (Bld) [Mass/Vol] 13.5 g/dL Normal 11.5-15.5 [facility] Comment on above: Order Comment: Mich martinez Type: BLOOD SPECIMEN Ordering Facility: [facility] Address: [address] [place] [address] Performed By: #### 5 8410-2 #### [facility] CLIA [id number] [address] [place] [address] [facility] MCH (RBC) [Entitic mass] 30.7 pg Normal 26.0-34.0 [facility] Comment on above: Order Comment: Speci men Type: BLOOD SPECIMEN Ordering Facility: [facility] Address: [address] [place] [address] Performed By: #### 5 8410-2 #### [facility] CLIA [id number] [address] [place] [address] [place] MCHC (RBC) [Mass/Vol] 32.8 g/dL Normal 30.5-36.0 [facility] Comment on above: Order Comment: Speci men Type: BLOOD SPECIMEN Ordering Facility: [facility] Address: [address] [place] [address] Performed By: #### 5 8410-2 #### [facility] CLIA [id number] [address] [place], [place] [id number] [place] [address] [place] MCV (RBC) [Entitic vol] 93.4 fL Normal 80.0-100.0 [facility] Comment on above: Order Comment: Speci men Type: BLOOD SPECIMEN Ordering Facility: [facility] Address: [address] [place] [address] Performed By: #### 5 8410-2 #### [facility] CLIA [id number] [address] [place] [address] [place] Platelet mean volume (Bld) [Entitic vol] 10.1 fL Normal 9.0-12.7 [facility] Comment on above: Order Comment: Speci men Type: BLOOD SPECIMEN Ordering Facility: [facility] Address: [address] [place] [address] Performed By: #### 5 8410-2 #### [facility] CLIA [id number] [address] [place] [address] [facility] OF [place] Platelets (Bld) [#/Vol] 260 10*3/uL Normal 150-400 [facility] Comment on above: Order Comment: Speci men Type: BLOOD SPECIMEN Ordering Facility: [facility] Address: [address] [place], [place] [address] Performed By: #### 5 8410-2 #### [facility] CLIA [id number] [address] [place] [address] [facility] RBC (Bld) [#/Vol] 4.40 10*6/uL Normal 3.90-5.20 [facility] Comment on above: Order Comment: Speci men Type: BLOOD SPECIMEN Ordering Facility: [facility] Address: [address] [place] [address] Performed By: #### 5 8410-2 #### [facility] CLIA [id number] [address] [place] [address] [facility] WBC (Bld) [#/Vol] 11.96 10*3/uL High 3.70-11.00 [facility] Comment on above: Order Comment: Speci men Type: BLOOD SPECIMEN Ordering Facility: [facility] Address: [address] [place] [address] Performed By: #### 5 8410-2 #### [facility] CLIA [id number] [address] [place], [place] [id number] [facility] CNOVon 04-30-2024 CNOV Office Visit (CHARANFAMPLE) ---- GABE VIERA ([id number]) 1995 F [facility] Date Time Provider Department 04/30/24 9:00 AM CAROLYNN HUMPHREY During your visit today, we recorded the following information about you: Temperature Pulse Respiration Blood pressure 97.6 degrees 83/minute 16/minute 100/64 Weight Height 72.6 kg 1.626 m Carolynn Humphrey DO 04/30/2024 7:45 PM Signed Subjective HPI Pt is here for acute visit She has been lightheaded for over 2 weeks It is constant It is worse when she goes from sitting to standing It can last from a few minutes to 1 hour She feels weak when it happens She is getting lightheaded when driving She is occasionally getting a headache after she gets lightheaded She gets an eye exam annually, last time was in October, denies blurred vision She denies feeling like the room is spinning She denies chest pain or heart palpitations She has been checking her BP at home, has had readings of 115/69, her blood sugar is 108 She has vaginal discharge with perineal itchiness and irritation ALLERGIES Allergen Reactions Amoxicillin Swelling Penicillins Swelling Current Outpatient Medications Medication Sig Dispense Refill fluconazole (DIFLUCAN) 150 mg tablet Take one by mouth at the first sign of a yeast infection, repeat with another tablet in 3 days (Patient not taking: Reported on 04/30/2024) 2 tablet 0 No current facility-administer ed medications for this visit. ACTIVE PROBLEM LIST Obesity, Class I, Bmi 30-34.9 Bacterial Vaginosis Social History Tobacco Use Smoking status: Former Current packs/day: 1.00 Types: Cigarettes Smokeless tobacco: Never Vaping Use Vaping status: current everyday user Substances: Nicotine Substance Use Topics Alcohol use: No Drug use: No Family History Problem Relation Age of Onset No Known Problems Mother No Known Problems Father Diabetes Maternal Grandmother Ovarian cancer Paternal Grandmother Diabetes Other No Known Problems Half-sister No Known Problems Half-sister No Known Problems Half-sister No Known Problems Half-sister No Known Problems Half-brother Reviewed past medical history, family history and surgeries. All medications and supplements were reviewed with the patient. Review of Systems Constitutional: Negative for chills, diaphoresis, fever, malaise/fatigue and weight loss. HENT: Negative for ear pain and hearing loss. Eyes: Negative for blurred vision and double vision. Respiratory: Negative for cough and shortness of breath. Cardiovascular: Negative for chest pain, palpitations and leg swelling. Gastrointestinal: Negative for constipation, diarrhea and heartburn. Genitourinary: Negative for dysuria and frequency. Vaginal discharge and irritation Musculoskeletal: Negative for back pain, falls, joint pain and myalgias. Skin: Negative for itching and rash. Neurological: Positive for dizziness and headaches. Negative for weakness. Endo/Heme/Allergies : Does not bruise/bleed easily. Psychiatric/Behavio ral: Negative for depression and substance abuse. The patient does not have insomnia. Objective BP 100/64 Pulse 83 Temp 36.4 ?C (97.6 ?F) Resp 16 Ht 162.6 cm (5' 4) Wt 72.6 kg (160 lb) LMP 02/14/2024 (Approximate) SpO2 93% BMI 27.46 kg/m? Physical Exam Constitutional: Appearance: Normal appearance. HENT: Head: Normocephalic and atraumatic. Nose: Nose normal. Mouth/Throat: Mouth: Mucous membranes are moist. Dentition: Normal dentition. Eyes: General: Lids are normal. Extraocular Movements: Extraocular movements intact. Conjunctiva/sclera: Conjunctivae normal. Pupils: Pupils are equal, round, and reactive to light. Neck: Thyroid: No thyroid mass or thyromegaly. Vascular: No carotid bruit. Trachea: Phonation normal. Cardiovascular: Rate and Rhythm: Normal rate and regular rhythm. Heart sounds: Normal heart sounds. No murmur heard. No friction rub. No gallop. Pulmonary: Effort: Pulmonary effort is normal. Breath sounds: Normal breath sounds. No wheezing or rales. Abdominal: General: Bowel sounds are normal. There is no distension. Palpations: Abdomen is soft. There is no mass. Tenderness: There is no abdominal tenderness. Genitourinary: Comments: Pelvic exam declined Musculoskeletal: General: No swelling or tenderness. Normal range of motion. Cervical back: Normal range of motion and neck supple. No edema. Lymphadenopathy: Cervical: No cervical adenopathy. Skin: General: Skin is warm and dry. Findings: No erythema or rash. Nails: There is no clubbing. Neurological: Mental Status: She is alert and oriented to person, place, and time. Cranial Nerves: No cranial nerve deficit. Motor: Motor function is intact. Coordination: Coordination normal. Gait: Gait is intact. Psychiatric: Attention and Percepti (more content not included)... Normal [facility] Comprehensive metabolic 2000 panelon 04-30-2024 Albumin [Mass/Vol] 4.1 g/dL 3.9 - 4.9 g/dL [facility] ALP [Catalytic activity/Vol] 103 U/L 34 - 123 U/L [facility] ALT With P-5'-P [Catalytic activity/Vol] 7 U/L 7 - 38 U/L [facility] Anion gap [Moles/Vol] 9 mmol/L 8 - 15 mmol/L [facility] AST With P-5'-P [Catalytic activity/Vol] 13 U/L 13 - 35 U/L [facility] Bilirubin [Mass/Vol] 1.4 mg/dL High 0.2 - 1 .3 mg/dL [facility] Calcium [Mass/Vol] 9.5 mg/dL 8.5 - 10. 2 mg/dL [facility] Chloride [Moles/Vol] 103 mmol/L 98 - 10 7 mmol/L [facility] CO2 [Moles/Vol] 26 mmol/L 22 - 30 mmol/L [facility] Creatinine [Mass/Vol] 0.88 mg/dL 0.58 - 0.96 mg/dL [facility] GFR/1.73 sq M.predicted among non-blacks MDRD (S/P/Bld) [Vol rate/Area] 93 mL/min/{1.73_m2} - PINF [facility] Comment on above: Estimated Glomerular Filtration Rate (eGFR) is calculated using the 2020 CKD-EPI creatinine equation. This equation utilizes serum creatinine, sex, and age as parameters. The creatinine assay has traceable calibration to isotope dilution-mass spectrometry. Refer to KDIGO guidelines for clinical interpretation. In patients with unstable renal function, e.g. those with acute kidney injury, the eGFR may not accurately reflect actual GFR. Glucose [Mass/Vol] 94 mg/dL 74 - 99 mg/dL [facility] Comment on above: The [place] Diabete s Association (ADA) provides guidance for cutoff values for fasting glucose and random glucose. The ADA defines fasting as no caloric intake for at least 8 hours. Fasting plasma glucose results between 100 to 125 mg/dL indicate increased risk for diabetes (prediabetes). Fasting plasma glucose results greater than or equal to 126 mg/dL meet the criteria for diagnosis of diabetes. In the absence of unequivocal hyperglycemia, results should be confirmed by repeat testing. In a patient with classic symptoms of hyperglycemia or hyperglycemic crisis, random plasma glucose results greater than or equal to 200 mg/dL meet the criteria for diagnosis of diabetes. Reference: Standards of Medical Care in Diabetes 2016, [place] Diabetes Association. Diabetes Care. 2016.39(Suppl 1). Potassium [Moles/Vol] 4.0 mmol/L 3.7 - 5.1 mmol/L [facility] Protein [Mass/Vol] 7.3 g/dL 6.3 - 8.0 g/dL [facility] Sodium [Moles/Vol] 138 mmol/L 136 - 144 mmol/L [facility] Urea nitrogen [Mass/Vol] 13 mg/dL 7 - 21 mg/dL [facility] Albumin [Mass/Vol] 4.1 g/dL Normal 3.9-4.9 [facility] Comment on above: Order Comment: Speci men Type: BLOOD SPECIMEN [facility]ing Facility: [facility] Address: [address] [place] [address] Performed By: #### 3 016-3, 30776-3 #### [facility] CLIA [id number] [address] [place] [address] [place] ALP [Catalytic activity/Vol] 103 U/L Normal 34-123 [facility] Comment on above: Order Comment: Speci men Type: BLOOD SPECIMEN Ordering Facility: [facility] Address: [address] [place] [address] Performed By: #### 3 016-3, 37587-5 #### [facility] CLIA [id number] [address] [place] [address] [place] ALT With P-5'-P [Catalytic activity/Vol] 7 U/L Normal 7-38 [facility] Comment on above: Order Comment: Speci men Type: BLOOD SPECIMEN Ordering Facility: [facility] Address: [address] [place] [address] Performed By: #### 3 016-3, 18785-8 #### [employer] [facility] CLIA [id number] [address] [place] [address] [place] Anion gap [Moles/Vol] 9 mmol/L Normal 8-15 [facility] Comment on above: Order Comment: Speci men Type: BLOOD SPECIMEN Ordering Facility: [facility] Address: [address] [place] [address] Performed By: #### 3 016-3, 61120-3 #### [facility] CLIA [id number] [address] [place] [address] [place] AST With P-5'-P [Catalytic activity/Vol] 13 U/L Normal 13-35 [facility] Comment on above: Order Comment: Speci men Type: BLOOD SPECIMEN Ordering Facility: [facility] Address: [address] [place] [address] Performed By: #### 3 016-3, 51655-7 #### [facility] CLIA [id number] [address] [place] [address] [place] Bilirubin [Mass/Vol] 1.4 mg/dL High 0.2-1.3 [facility] Comment on above: Order Comment: Speci men Type: BLOOD SPECIMEN Ordering Facility: [facility] Address: [address] [place] [address] Performed By: #### 3 016-3, 78915-3 #### [facility] CLIA [id number] [address] [place] [address] [place] Calcium [Mass/Vol] 9.5 mg/dL Normal 8.5-10.2 [facility] Comment on above: Order Comment: Speci men Type: BLOOD SPECIMEN Ordering Facility: [facility] Address: [address] [place] [address] Performed By: #### 3 016-3, 76871-1 #### [facility] CLIA [id number] [address] [place] [address] [place] Chloride [Moles/Vol] 103 mmol/L Normal 98-107 [facility] Comment on above: Order Comment: Speci men Type: BLOOD SPECIMEN Ordering Facility: [facility] Address: [address] [place] [address] Performed By: #### 3 016-3, 24150-1 #### [facility] CLIA [id number] [address] [place] [address] [place] CO2 [Moles/Vol] 26 mmol/L Normal 22-30 [facility] Comment on above: Order Comment: Speci men Type: BLOOD SPECIMEN Ordering Facility: [facility] Address: [address] [place] [id number] Performed By: #### 3 016-3, 22252-4 #### [facility] CLIA [id number] [address] [place] [address] [place] [facility] Creatinine [Mass/Vol] 0.88 mg/dL Normal 0.58-0.96 [facility] Comment on above: Order Comment: Mich martinez Type: BLOOD SPECIMEN Ordering Facility: [facility] Address: [address] [place] [address] Performed By: #### 3 016-3, 33238-0 #### [facility] CLIA [id number] [address] [place] [address] [facility] Creatinine and Glomerular filtration rate.predicted panel (S/P/Bld) 93 mL/min/1.73m??? Normal >=60 [facility] Comment on above: Order Comment: Mich martinez Type: BLOOD SPECIMEN Ordering Facility: [facility] Address: [address] [place] [address] Result Comment: Beth mated Glomerular Filtration Rate (eGFR) is calculated using the 2020 CKD-EPI creatinine equation. This equation utilizes serum creatinine, sex, and age as parameters. The creatinine assay has traceable calibration to isotope dilution-mass spectrometry. Refer to KDIGO guidelines for clinical interpretation. In patients with unstable renal function, e.g. those with acute kidney injury, the eGFR may not accurately reflect actual GFR. Performed By: #### 3 016-3, 14130-6 #### [facility] CLIA [id number] [address] [place] [address] [place] Glucose [Mass/Vol] 94 mg/dL Normal 74-99 [facility] Comment on above: Order Comment: Mich martinez Type: BLOOD SPECIMEN Ordering Facility: [facility] Address: [address] [place] [address] Result Comment: The [place] Diabetes Association (ADA) provides guidance for cutoff values for fasting glucose and random glucose. The ADA defines fasting as no caloric intake for at least 8 hours. Fasting plasma glucose results between 100 to 125 mg/dL indicate increased risk for diabetes (prediabetes). Fasting plasma glucose results greater than or equal to 126 mg/dL meet the criteria for diagnosis of diabetes. In the absence of unequivocal hyperglycemia, results should be confirmed by repeat testing. In a patient with classic symptoms of hyperglycemia or hyperglycemic crisis, random plasma glucose results greater than or equal to 200 mg/dL meet the criteria for diagnosis of diabetes. Reference: Standards of Medical Care in Diabetes 2016, [place] Diabetes Association. Diabetes Care. 2016.39(Suppl 1). Performed By: #### 3 016-3, 16795-2 #### [facility] CLIA [id number] [address] [place] [address] [place] Potassium [Moles/Vol] 4.0 mmol/L Normal 3.7-5.1 [facility] Comment on above: Order Comment: Mich martinez Type: BLOOD SPECIMEN Order[facility] Facility: [facility] Address: [address] [place] [address] Performed By: #### 3 -, 55253-6 #### [facility] CLIA [id number] [address] [place] [address] [place] Protein [Mass/Vol] 7.3 g/dL Normal 6.3-8.0 [facility] Comment on above: Order Comment: Sharroni juan Type: BLOOD SPECIMEN [facility] Facility: [facility] Address: [address] [place] [address] Performed By: #### 3 -3, 43031-0 #### [facility] CLIA [id number] [address] [place] [address] [place] Sodium [Moles/Vol] 138 mmol/L Normal 136-144 [facility] Comment on above: Order Comment: Sharroni men Type: BLOOD SPECIMEN Order[facility] Facility: [facility] Address: [address] [place] [address] Performed By: #### 3 -3, 13678-0 #### [facility] CLIA [id number] [address] [place] [address] [place] Urea nitrogen [Mass/Vol] 13 mg/dL Normal 7-21 [facility] Comment on above: Order Comment: Speci men Type: BLOOD SPECIMEN Ordering Facility: [facility] Address: [address] [place], [place] [address] Performed By: #### 3 016-3, 01387-6 #### [facility] CLIA [id number] [address] [place] [address] [place] ECG B/O W INTERP (MED OFFICE )on 04-30-2024 NSR Carolynn Humphrey, [facility] No Panel Informationon 04-30 Interpretation and review of laboratory results Abnormal [facility] THYROID STIMULATING HORMONEo n 04-30-2024 TSH Qn 4.210 m[IU]/L High [facility] Comment on above: If the patient is pr egnant, TSH reference range varies by gestational period: First Trimester (weeks 9-12): 0.180-2.990 mIU/L Second Trimester: 0.110-3.980 mIU/L Third Trimester: 0.480-4.710 mIU/L Milo Russell, et al. A Practical Approach for the Verifications and Determination of Site- and Trimester-Specific Reference Intervals for Thyroid Function tests in . Thyroid, 2019:29:3:412-420. Inocencio Gerardo et al. 2017 Guidelines of the [place] Thyroid Association for the Diagnosis and Management of Thyroid Disease during and the . Thyroid, 2017:27:3:315-389. TSH SerPl-aCncon 04-30-2024 TSH Qn 4.210 m[IU]/L High 0.270-4.200 [facility] Comment on above: Order Comment: Mich martinez Type: BLOOD SPECIMEN Ordering Facility: [facility] Address: [address] [place], [place] [address] [address] Result Comment: If t he patient is , TSH reference range varies by gestational period: First Trimester (weeks 9-12): 0.180-2.990 mIU/L Second Trimester: 0.110-3.980 mIU/L Third Trimester: 0.480-4.710 mIU/L Milo Russell, et al. A Practical Approach for the Verifications and Determination of Site- and Trimester-Specific Reference Intervals for Thyroid Function tests in . Thyroid, 2019:29:3:412-420. Inocencio E, et al. 2017 Guidelines of the [place] Thyroid Association for the Diagnosis and Management of Thyroid Disease during and the . Thyroid, 2017:27:3:315-389. Performed By: #### 3 016-3, 54415-4 #### [facility] CLIA [id number] [address] [place] [address] [facility] 09-18-2023 36 [facility] sent Normal [employer] [facility] 09-16-2023 36 We have been unable to reach your patient to schedule their testing. Test Name: Physical Therapy 1st Attempt: 09/14/23 2nd Attempt: 09/16/23 Normal [facility] HbA1c (Bld)on 08-11-2023 Average glucose Estimated from glycated hemoglobin (Bld) [Mass/Vol] 123 mg/dL [facility] Comment on above: eAG: (Estimated aver age glucose) is a calculated value from HgbA1c and is loan representative of the average blood glucose level in the last 2-3 month period. HbA1c (Bld) [Mass fraction] 5.9 % High 4.3 - 5.6 % [facility] Comment on above: [place] Diabetes As sociation guidelines indicate that patients with HgbA1c in the range 5.7-6.4% are at increased risk for development of diabetes, and intervention by lifestyle modification may be beneficial. HgbA1c greater or equal to 6.5% is considered diagnostic of diabetes. Interpretation and review of laboratory results Abnormal [facility] UA DIP, URINE (POC)on 2023 BILIRUBIN UA (POCT) Negative Negative [facility] CLARITY UA (POCT) Clear [facility] COLOR UA (POCT) Yellow [facility] GLUCOSE UA (POCT) Negative Negative mg/dL [facility] Hemoglobin Ql (U) Negative Negative [facility] KETONE UA (POCT) Negative Negative mg/dL [facility] LEUKOCYTES UA (POCT) Negative Negative [facility] NITRITE UA (POCT) Negative Negative [facility] PH UA (POCT) 6.0 4.5 - 8.0 [facility] Protein Ql (U) Negative Negative mg/dL [facility] SPECIFIC GRAVITY UA (POCT) >=1.030 1.005 - 1.030 [facility] UROBILINOGEN UA (POCT) 1.0 Normal E.U./d L [facility] Location:[facility], [address] [place] [address], [address] [place] [address] POINT OF CARE [facility] CT Abdomen and Pelvis W cont rast Rosi 07-11-2023 [facility] CBC W Auto Differential pane l (Bld)on 07-10-2023 Basophils (Bld) [#/Vol] 0.03 10*3/uL <0.11 k/uL [facility] Basophils/100 WBC (Bld) 0.3 % [facility] Differential cell count method Nom (Bld) Auto [facility] Eosinophils (Bld) [#/Vol] 0.11 10*3/uL <0.46 k/uL [facility] Eosinophils/100 WBC (Bld) 1.2 % [facility] Erythrocyte distribution width (RBC) [Ratio] 12.5 % 11.5 - 15.0 % [facility] Hematocrit (Bld) [Volume fraction] 43.1 % 36.0 - 46.0 % [facility] Hemoglobin (Bld) [Mass/Vol] 14.4 g/dL 11.5 - 15.5 g/dL [facility] Immature granulocytes (Bld) [#/Vol] <0.10 k/uL [facility] Immature granulocytes/100 WBC (Bld) 0.1 % [facility] Lymphocytes (Bld) [#/Vol] 3.12 10*3/uL 1.00 - 4.00 k/uL [facility] Lymphocytes/100 WBC (Bld) 33.8 % [facility] MCH (RBC) [Entitic mass] 30.7 pg 26.0 - 34.0 pg [facility] MCHC (RBC) [Mass/Vol] 33.4 g/dL 30.5 - 36.0 g/dL [facility] MCV (RBC) [Entitic vol] 91.9 fL 80.0 - 100.0 fL [facility] Monocytes (Bld) [#/Vol] 0.44 10*3/uL <0.87 k/uL [facility] Monocytes/100 WBC (Bld) 4.8 % [facility] Neutrophils (Bld) [#/Vol] 5.52 10*3/uL 1.45 - 7.50 k/uL [facility] Neutrophils/100 WBC (Bld) 59.8 % [facility] Nucleated RBC (Bld) [#/Vol] [facility] Nucleated RBC/100 WBC (Bld) [Ratio] [facility] Platelet mean volume (Bld) [Entitic vol] 9.4 fL 9.0 - 12.7 fL [facility] Platelets (Bld) [#/Vol] 266 10*3/uL 150 - 400 k /uL [facility] RBC (Bld) [#/Vol] 4.69 10*6/uL 3.90 - 5.2 0 m/uL [facility] WBC (Bld) [#/Vol] 9.23 10*3/uL 3.70 - 11. 00 k/uL [facility] Comprehensive metabolic 2000 panelon 07-10-2023 Albumin [Mass/Vol] 4.3 g/dL 3.9 - 4.9 g/dL Cl [facility] ALP [Catalytic activity/Vol] 104 U/L 34 - 123 U/L [facility] ALT With P-5'-P [Catalytic activity/Vol] 14 U/L 7 - 38 U/L [facility] Anion gap [Moles/Vol] 10 mmol/L 9 - 18 mmol/L [facility] AST With P-5'-P [Catalytic activity/Vol] 14 U/L 13 - 35 U/L [facility] Bilirubin [Mass/Vol] 0.9 mg/dL 0.2 - 1 .3 mg/dL [facility] Calcium [Mass/Vol] 9.4 mg/dL 8.5 - 10. 2 mg/dL [facility] Chloride [Moles/Vol] 102 mmol/L 97 - 10 5 mmol/L [facility] CO2 [Moles/Vol] 25 mmol/L 22 - 30 mmol/L [facility] Creatinine [Mass/Vol] 0.86 mg/dL 0.58 - 0.96 mg/dL [facility] Estimated Glomerular Filtration Rate 96 mL/min/1.73m >=60 mL/min/1.73m [facility] Glucose [Mass/Vol] 103 mg/dL High 74 - 99 mg/dL [facility] Potassium [Moles/Vol] 4.2 mmol/L 3.7 - 5.1 mmol/L [facility] Protein [Mass/Vol] 7.9 g/dL 6.3 - 8.0 g/dL Cl [facility] Sodium [Moles/Vol] 137 mmol/L 136 - 144 mmol/L [facility] Urea nitrogen [Mass/Vol] 8 mg/dL 7 - 21 mg/dL [facility] LIPASE BLDon 07-10-2023 Lipase [Catalytic activity/Vol] 22 U/L 16 - 61 U/L [facility] UA DIP, URINE (POC)on 2023 BILIRUBIN UA (POCT) Negative Negative [facility] CLARITY UA (POCT) Clear [facility] COLOR UA (POCT) Yellow [facility] GLUCOSE UA (POCT) 100 mg/dL Abnormal Negative mg/dL [facility] Hemoglobin Ql (U) Negative Negative [facility] KETONE UA (POCT) Negative Negative mg/dL [facility] LEUKOCYTES UA (POCT) Negative Negative [facility] NITRITE UA (POCT) Negative Negative [facility] PH UA (POCT) 5.5 4.5 - 8.0 [facility] Protein Ql (U) Trace Abnormal Negative mg/dL [facility] SPECIFIC GRAVITY UA (POCT) >=1.030 1.005 - 1.030 [facility] UROBILINOGEN UA (POCT) 0.2 E.U./dL Normal E.U./ dL [facility] UA DIP,URINE HCG (POC)on Beta HCG ( test) Ql (U) Negative Negative [facility] [facility] 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) Internal QC [place] [facility] Office Visiton 06-30-2023 Follow-up visit [id number] Gabe Viera 1995 F Date Provider Department Center 06/30/2023 [id number]-ROYELNMALIA VALLES [facility] OB Offi Family History Problem Relation Age of Onset Ovarian cancer Paternal Grandmother Breast cancer Paternal Great-Grandmother Colon cancer Neg Hx Uterine cancer Neg Hx Family Status - Relation Status Age at Paternal Grandfather Alive Paternal Grandmother Alive Maternal Grandmother Alive Maternal Grandfather Alive Father Alive Mother Alive Paternal Great-Grandmother Alive Neg Hx Level of Service:29387 ND OFFICE/OUTPATIENT ESTABLISHED LOW MDM 20 MIN Reason for Visit and Comments: Follow-up [[id number]] - results Normal [facility] Progress Noteon 06-30-2023 Progress Note Gabe Viera 06/30/2023 Date Of : 1995 HPI: Gabe Viera is a 27 y.o. female The patient was seen today. She is here regarding [facility] for [facility] pain . Planning to go back on ocp but lost pills; will send new rx.. 2 days pain with cycle. Menses regular. Sharp pain right lasts seconds every day. Problem for years. Review Of Systems: Constitutional: No fever, chills or malaise; No weight change or fatigue Gastrointestinal ROS: No Indigestion, Heartburn, Nausea, vomiting, Diarrhea, Constipation,or Bowel Changes Genito-Urinary ROS: No Dysuria Psych ROS: No Depression, Homicidal thoughts,suicidal thoughts, or anxiety Physical Exam: Blood pressure 120/83, pulse 94, height 5' 4 (1.626 m), weight 189 lb (85.7 kg). General: Alert, NAD Respirations: Normal respiratory effort Abdomen: Soft No guarding, rebound or rigidity. Extremities: No calf tenderness and No edema bilaterally Ulcad reviewed with patient Assessment: Diagnosis Plan 1. Pelvic pain in female [facility] Pelvic Health Therapy [facility] PLAN: Follow up for annual. Orders Placed This Encounter Procedures [facility] Pelvic Health Therapy [facility] Pelvic Health Therapy Standing Status: Future Standing Expiration Date: 06/29/2024 Referral Priority: Routine Referral Type: Therapy Referral Reason: Eval and Treat Requested Specialty: Physical Therapy Number of Visits Requested: 1 The encounter diagnosis was Pelvic pain in female. and Follow-up (results) as well as counseling on preventative health maintenance follow-up. Normal [facility] PELVIS TRANSVAGINALon PELVIS TRANSVAGINAL -- Gynecological Report (Signed Final 06/26/2023 03:32 pm) PATIENT INFO: ID #: [id number] : [birth year] (27 yrs)(F) Name: GABE VIERA Visit Date: 06/23/2023 03:29 pm PERFORMED BY: Attending: Jamir Wing MD Performed By: Rupa Nichols RDMS Referred By: MALIA VALLES MD Location: [facility] DIAPER FOLDER Toone Visit Type: [facility] DIAPER FOLDER SERVICE(S) PROVIDED: Truck Driver Instructor Transvaginal [id number] INDICATIONS: Pelvic and perineal pain R10.2 LMP: 06/13/2023 Transvaginal SHIP DESIGN TEACHER TECHNIQUE/SCAN QUALITY: Technique: Transvaginal Approach COMPARISON: [facility] DIAPER FOLDER 11/08/2022 - Left ovarian hemorrhagic cyst 2.23 x 1.37 x 1.25 cm. HISTORY: Age: 27 LMP: 06/13/23 Day Of Cycle: 11 HX COMMENTS: Non latex cover used. UTERUS: Uterus: Normal Position: Anteverted Size (cm) L: 8.29 W: 4.6 H: 3.72 ENDOMETRIUM: Endometrium: Normal Thickness(mm): 12.31 CERVIX: Fluid is noted in the cervical canal. CUL-DE-SAC: A small amount of fluid was noted. RIGHT OVARY: Status: Enlarged Size (cm) L: 3.24 W: 3.04 H: 2.39 Vol (ml): 12.33 Comment: Multiple follicles <2mm distributed peripherally. LEFT OVARY: Status: Enlarged Size (cm) L: 5.03 W: 3.48 H: 2.33 Vol (ml): 21.36 Type: Simple cyst Size (cm) L: 1.61 W: 1.8 H: 1.4 Vol (ml): 2.12 Comment: Multiple follicles <2mm distributed peripherally. Jamir Wing MD Electronically Signed Final Report 06/26/2023 03:32 pm IMPRESSION: The endometrium appears trilaminar in contour: 12.31 mm. Both ovaries are enlarged and have several, small cysts along the periphery of the ovary. This appearance and ovarian volumes over 10 cc can be associated with PCOS. Clinical correlation is required. Simple appearing left ovarian cyst measures 1.61 x 1.8 x 1.4 cm. Given patient's LMP, this most likely represents a functional cyst. Follow up as clinically indicated. Benign appearing cyst - consider repeat imaging in 4-6 weeks The patient is scheduled to see Dr. Valles on 06/30/2023. *Ultrasound cannot detect all pelvic or SHIP DESIGN TEACHER abnormalities and normal findings cannot guarantee the absence of a problem.* Normal [facility] US Pelvis transvaginalon The endometrium appears trilaminar in contour: 12.31 mm. Both ovaries are enlarged and have several, small cysts along the periphery of the ovary. This appearance and ovarian volumes over 10 cc can be associated with PCOS. Clinical correlation is required. Simple appearing left ovarian cyst measures 1.61 x 1.8 x 1.4 cm. Given patient's LMP, this most likely represents a functional cyst. Follow up as clinically indicated. Benign appearing cyst - consider repeat imaging in 4-6 weeks The patient is scheduled to see Dr. Valles on 06/30/2023. *Ultrasound cannot detect all pelvic or SHIP DESIGN TEACHER abnormalities and normal findings cannot guarantee the absence of a problem.* [employer] Gynecological Report (Signed Final 06/26/2023 03:32 pm) PATIENT INFO: ID #: [id number] : [birth year] (27 yrs)(F) Name: GABE VIERA Visit Date: 06/23/2023 03:29 pm PERFORMED BY: Attending: Jamir Wing MD Performed By: Rupa Nichols [facility] Referred By: MALIA VALLES MD Location: [facility] DIAPER FOLDER Toone Visit Type: [facility] DIAPER FOLDER SERVICE(S) PROVIDED: Truck Driver Instructor Transvaginal [id number] INDICATIONS: Pelvic and perineal pain R10.2 LMP: 06/13/2023 Transvaginal SHIP DESIGN TEACHER TECHNIQUE/SCAN QUALITY: Technique: Transvaginal Approach COMPARISON: [facility] DIAPER FOLDER 11/08/2022 - Left ovarian hemorrhagic cyst 2.23 x 1.37 x 1.25 cm. HISTORY: Age: 27 LMP: 06/13/23 Day Of Cycle: 11 HX COMMENTS: Non latex cover used. UTERUS: Uterus: Normal Position: Anteverted Size (cm) L: 8.29 W: 4.6 H: 3.72 ENDOMETRIUM: Endometrium: Normal Thickness(mm): 12.31 CERVIX: Fluid is noted in the cervical canal. CUL-DE-SAC: A small amount of fluid was noted. RIGHT OVARY: Status: Enlarged Size (cm) L: 3.24 W: 3.04 H: 2.39 Vol (ml): 12.33 Comment: Multiple follicles <2mm distributed peripherally. LEFT OVARY: Status: Enlarged Size (cm) L: 5.03 W: 3.48 H: 2.33 Vol (ml): 21.36 Type: Simple cyst Size (cm) L: 1.61 W: 1.8 H: 1.4 Vol (ml): 2.12 Comment: Multiple follicles <2mm distributed peripherally. Jamir Wing MD Electronically Signed Final Report 06/26/2023 03:32 pm [facility] RADIOLOGY SYSTEM Maciej, Jamir Andrade MD - 06/26/2023 Gynecological Report (Signed Final 06/26/2023 03:32 pm) PATIENT INFO: ID #: [id number] : [birth year] (27 yrs)(F) Name: GABE VIERA Visit Date: 06/23/2023 03:29 pm PERFORMED BY: Attending: Jamir Wing MD Performed By: Rupa Nichols RDTX Referred By: MALIA VALLES MD Location: [facility] DIAPER FOLDER Toone Visit Type: [facility] DIAPER FOLDER SERVICE(S) PROVIDED: Truck Driver Instructor Transvaginal [id number] INDICATIONS: Pelvic and perineal pain R10.2 LMP: 06/13/2023 Transvaginal SHIP DESIGN TEACHER TECHNIQUE/SCAN QUALITY: Technique: Transvaginal Approach COMPARISON: [facility] DIAPER FOLDER 11/08/2022 - Left ovarian hemorrhagic cyst 2.23 x 1.37 x 1.25 cm. HISTORY: Age: 27 LMP: 06/13/23 Day Of Cycle: 11 HX COMMENTS: Non latex cover used. UTERUS: Uterus: Normal Position: Anteverted Size (cm) L: 8.29 W: 4.6 H: 3.72 ENDOMETRIUM: Endometrium: Normal Thickness(mm): 12.31 CERVIX: Fluid is noted in the cervical canal. CUL-DE-SAC: A small amount of fluid was noted. RIGHT OVARY: Status: Enlarged Size (cm) L: 3.24 W: 3.04 H: 2.39 Vol (ml): 12.33 Comment: Multiple follicles <2mm distributed peripherally. LEFT OVARY: Status: Enlarged Size (cm) L: 5.03 W: 3.48 H: 2.33 Vol (ml): 21.36 Type: Simple cyst Size (cm) L: 1.61 W: 1.8 H: 1.4 Vol (ml): 2.12 Comment: Multiple follicles <2mm distributed peripherally. Jamir Wing MD Electronically Signed Final Report 06/26/2023 03:32 pm IMPRESSION: The endometrium appears trilaminar in contour: 12.31 mm. Both ovaries are enlarged and have several, small cysts along the periphery of the ovary. This appearance and ovarian volumes over 10 cc can be associated with PCOS. Clinical correlation is required. Simple appearing left ovarian cyst measures 1.61 x 1.8 x 1.4 cm. Given patient's LMP, this most likely represents a functional cyst. Follow up as clinically indicated. Benign appearing cyst - consider repeat imaging in 4-6 weeks The patient is scheduled to see Dr. Valles on 06/30/2023. *Ultrasound cannot detect all pelvic or SHIP DESIGN TEACHER abnormalities and normal findings cannot guarantee the absence of a problem.* [email or web address] US Pelvis transvaginalOrdere d By: Jamir Wing on 06-26-2023 [email or web address] Work Phone: US Pelvis transvaginalon Radiology Study observation (narrative) [facility] alth Sureswab(R) Advanced Vaginit is Plus, TMA (Quest)on 06-10-2023 C. glabrata RNA JOSEFA+probe Ql (Vag fld) Not detected NOT DETECTED [facility] Comment on above: Yousuf species C. albicans, C. tropicalis, C. parapsilosis, and/or C. dubliniensis can be detected, but not differentiated, in the Yousuf spp. result. C. trachomatis rRNA JOSEFA+probe Ql (Unsp spec) Not detected NOT DETECTED [facility] Yousuf sp rRNA Probe Ql (Vag fld) Not detected NOT DETECTED [facility] Lactobacillus crispatus+gasseri+jense tanvir + Gardnerella vaginalis + Atopobium vaginae rRNA JOSEFA+probe Ql (Vag fld) Negative NEGATIVE [facility] N. gonorrhoeae rRNA JOSEFA+probe Ql (Unsp spec) Not detected NOT DETECTED [facility] Comment on above: For additional infor veronica, please refer to [email or web address].[email or web address]/faq/[email or web address] (This link is being provided for information/ educational purposes only.) T. vaginalis rRNA JOSEFA+probe Ql (Unsp spec) Not detected NOT DETECTED [facility] HCG ( test) Ql (U)o n 06-09-2023 Beta HCG ( test) Ql (U) . [facility] NEGATIVE QC Pass [facility] POSITIVE QC Pass [facility] Preg Test, Ur Negative Negative [facility] h [facility] Radiology Study observation (narrative) [facility] alth Urinalysis macro (dipstick) panel (U)on 06-09-2023 Bilirubin, UA Negative [facility] Blood, UA Negative [facility] Glucose, UA Negative [facility] Ketones, POC (mg/dL) Negative [facility] Leukocytes, UA Negative [facility] Nitrite, UA Negative [facility] pH, UA 5.5 [facility] Protein, UA Negative [facility] Spec Grav, UA 1.030 [facility] h Urobilinogen, UA 0.2 [facility] alth [facility] Radiology Study observation (narrative) [facility] alth Laboratory - Microbiology an d Antimicrobial susceptibilityon 12-06-2022 SARS-CoV-2 (COVID-19) RNA JOSEFA+probe Ql (Unsp spec) Not detected [facility] No Panel Informationon 12-06 Influenza Types A,B Rapid (Clinic) Not detected [facility] HCG ( test) Ql (U)o n 10-25-2022 Beta HCG ( test) Ql (U) . [facility] [employer] NEGATIVE QC Pass [facility] [employer] POSITIVE QC Pass [facility] [employer] Preg Test, Ur Negative Negative [facility] Healt h [facility] [employer] RAPID BACT VAGINOSIS (AK)on 08-09-2021 Bacterial sialidase Ql (Unsp spec) Negative Negative for the presence of bacterial vaginosis. [facility] TRICHOMONAS PREP/ANTIGENon 0 08-09-2021 T. vaginalis Ag IA Ql (Genital specimen) Negative Negative for Trichomonas Antigen [facility] CBC W Auto Differential pane l (Bld)on 07-12-2021 Basophils (Bld) [#/Vol] 0.03 10*3/uL <0.11 k/uL [facility] Basophils/100 WBC (Bld) 0.2 % [facility] Differential cell count method Nom (Bld) Auto [facility] Eosinophils (Bld) [#/Vol] 0.49 10*3/uL High <0.46 k/uL [facility] Eosinophils/100 WBC (Bld) 3.8 % [facility] Erythrocyte distribution width (RBC) [Ratio] 13.0 % 11.5 - 15.0 % [facility] Hematocrit (Bld) [Volume fraction] 42.3 % 36.0 - 46.0 % [facility] Hemoglobin (Bld) [Mass/Vol] 13.9 g/dL 11.5 - 15.5 g/dL [facility] Lymphocytes (Bld) [#/Vol] 4.79 10*3/uL High 1.00 - 4.00 k/uL [facility] Lymphocytes/100 WBC (Bld) 37.0 % [facility] MCH (RBC) [Entitic mass] 30.1 pg 26.0 - 34.0 pg [facility] MCHC (RBC) [Mass/Vol] 32.9 g/dL 30.5 - 36.0 g/dL [facility] MCV (RBC) [Entitic vol] 91.6 fL 80.0 - 100.0 fL [facility] Monocytes (Bld) [#/Vol] 0.77 10*3/uL <0.87 k/uL [facility] Monocytes/100 WBC (Bld) 6.0 % [facility] Neutrophils (Bld[facility] [#/Vol] 6.86 10*3/uL 1.45 - 7.50 k/uL [facility] Neutrophils/100 WBC (Bld) 53.0 % [facility] Platelet mean volume (Bld) [Entitic vol] 10.6 fL 9.0 - 12.7 fL [facility] Platelets (Bld) [#/Vol] 280 10*3/uL 150 - 400 k /uL [facility] RBC (Bld) [#/Vol] 4.62 10*6/uL 3.90 - 5.2 0 m/uL [facility] WBC (Bld) [#/Vol] 12.94 10*3/uL High 3.70 - 11 .00 k/uL [facility] Comprehensive metabolic 2000 panelon 07-12-2021 Albumin [Mass/Vol] 4.2 g/dL 3.9 - 4.9 g/dL Cl [facility] ALP [Catalytic activity/Vol] 148 U/L High 34 - 123 U/L [facility] ALT With P-5'-P [Catalytic activity/Vol] 15 U/L 7 - 38 U/L [facility] Anion gap [Moles/Vol] 7 mmol/L Low 9 - 18 mmol/L [facility] AST With P-5'-P [Catalytic activity/Vol] 14 U/L 13 - 35 U/L [facility] Bilirubin [Mass/Vol] 0.2 mg/dL 0.2 - 1 .3 mg/dL [facility] Calcium [Mass/Vol] 9.1 mg/dL 8.5 - 10. 2 mg/dL [facility] Chloride [Moles/Vol] 105 mmol/L 97 - 10 5 mmol/L [facility] CO2 [Moles/Vol] 26 mmol/L 22 - 30 mmol/L [facility] Creatinine [Mass/Vol] 0.83 mg/dL 0.58 - 0.96 mg/dL [facility] Estimated Glomerular Filtration Rate 102 mL/min/1.73m >=60 mL/min/1.73m [facility] Glucose [Mass/Vol] 120 mg/dL High 74 - 99 mg/dL [facility] Potassium [Moles/Vol] 4.3 mmol/L 3.7 - 5.1 mmol/L [facility] Protein [Mass/Vol] 7.4 g/dL 6.3 - 8.0 g/dL [facility] Sodium [Moles/Vol] 138 mmol/L 136 - 144 mmol/L [facility] Urea nitrogen [Mass/Vol] 8 mg/dL 7 - 21 mg/dL [facility] TSH BLDon 07-12-2021 TSH Qn 4.130 m[IU]/L 0.270 - 4.200 mIU/L [facility] C GENITALon 12-21-2019 C GENITAL [facility] [address] [place] [id number] Name: GABE VIERA : 1995 Admitting Provider: Gender: Female Financial [phone] Number: Location: [facility]. Admit 12/18/2019 Date: Discharge 12/18/2019 Date: Microbiology PROCEDURE: C GENITAL [] SOURCE: VAGINAL BODY SITE: COLLECTED DATE/TIME: 12/18/2019 14:22 EDT RECEIVED DATE/TIME: 12/18/2019 14:50 EDT START DATE/TIME: 12/18/2019 14:50 EDT FREE TEXT SOURCE: ORDERING PHYSICIAN: PETER MCNALLY MD FINAL REPORTS Final Report [] Verified Date/Time: 12/21/2019 11:55 EDT Normal Vaginal David isolated. STAINS GS [] Verified Date/Time: 12/18/2019 15:21 EDT Moderate Epithelial Cells Many Gram Positive Rods. Rare Gram Negative Rods Gram Stain consistent with normal vaginal secretions. _ L=Low, H= High, *= Abnormal, C=Critical, f=Footnote, c=Corrected, i=Interp Data Name: GABE VIERA Print Date/ 12/23/2019 15:47 EDT Time: Normal [facility] Comment on above: Performed By: #### 1 [id number] #### [facility] [address] [place] [address] Ibm Bpm Architect: Julio Cabrera MD GP CHLAMon 12-20-2019 Genprobe Chlamydia Negative Normal [facility] Comment on above: Order Comment: Order ed on Fin# [id number] Result Comment: This Chlamydia assay is being performed via a second generation NAAT that utilizes target capture, biochemical development engineer mediated amplification and dual kenetic assay technologies. Performed By: #### 1 [id number], [id number] #### [facility] [address] [place] [address] Ibm Bpm Architect: Julio Cabrera MD GP GCon 12-20-2019 Genprobe GC Negative [facility] Comment on above: Order Comment: Order ed on Fin# [id number] Result Comment: This Gonorrhoea assay is being performed via a second generation NAAT that utilizes target capture, biochemical development engineer mediated amplification and dual kenetic assay technologies. Performed By: #### 1 [id number], [id number] #### [facility] [address] [place] [address] Ibm Bpm Architect: Julio Cabrera MD [facility] Physician Progress No brunilda 12-18-2019 [facility] Physician Progress Note Chief Complaint New pt, Having symptoms of yeast infection. She not having any discharge at the moment but had some last week. Last month went to urgent care and told her she had a BV and yeast infection and STI. but dealing with BVand yeast infection for about a year no History of Present Illness She presented to urgent care with vaginal discharge with itching and burning. Has some discomfort with urination. Was diagnosed with yeast, BV and and STD. No records available. Was treated with Diflucan, MetroGel and doxycycline. Physical Exam Vitals & Measurements Systolic Blood Pressure: 120 mmHg (12/18/19 10:15:00) Diastolic Blood Pressure: 70 mmHg (12/18/19 10:15:00) Height/Length Measured: 163 cm (12/18/19 10:15:00) Weight Measured: 83.2 kg (12/18/19 10:15:00) Body Mass Index Measured: 31.31 kg/m2 (12/18/19 10:15:00) Last Menstrual Period: 12/11/19 (12/18/19 10:15:00) Depression Screening Scores Initial Depression Screen Score: 0 (12/18/19 10:15:00) Fall Risk Assessment Is the patient ambulatory (mobile): Yes (12/18/19 10:15:00) Have you had a fall within the past: No (12/18/19 10:15:00) Have you had 2 or more falls in the past: No (12/18/19 10:15:00) Constitutional female appearing her stated age. Pelvic EGBUS normal female. Vagina pink and rugated. Small amount of discharge is noted. Cervix without lesions. Neurological oriented. Psychiatric normal judgment. Assessment/Plan Encounter for screening for infections with predominantly sexual mode of transmission Z11.3 Culture obtained. Patient be called with result. Ordered: AMB Office/Outpt New Pt (approx 20 min) , 12/18/2019 10:44:00 EDT, Vaginal discharge / Encounter for screening for infections with predominantly sexual mode of transmission GP CHLAM, ROUTINE, 12/18/2019, Specimen type: Cervical, Dx: Encounter for screening for infections with predominantly sexual mode of transmission GP GC, ROUTINE, 12/18/2019, Specimen type: Cervical, Dx: Encounter for screening for infections with predominantly sexual mode of transmission Vaginal discharge N89.8 Culture obtained. Patient be called with result. Total time spent 20 minutes, greater than 50 percent was spent in counseling and/or coordination of care. Ordered: AMB Office/Outpt New Pt (approx 20 min) , 12/18/2019 10:44:00 EDT, Vaginal discharge / Encounter for screening for infections with predominantly sexual mode of transmission C GENITAL, ROUTINE, 12/18/2019, Specimen type: Vaginal, Vaginal discharge Problem List/Past Medical History Ongoing No qualifying data Historical No qualifying data Procedure/Surgical History Last pap-unsure Medications No active medications Allergies amoxicillin penicillin Social History Alcohol - Low Risk, 12/18/2019 Sexual Sexually active: Yes., 12/18/2019 Substance Abuse - Denies Substance Abuse, 12/18/2019 Tobacco 5-9 cigarettes (between 1/4 to 1/2 pack)/day in last 30 days Tobacco Use:., 12/18/2019 Family History Ovarian cancer..: Grandmother. . Health Maintenance Pending (in the next year) Due MMR Vaccine Dose 1 due 12/18/19 One-time only Tetanus Vaccine due 12/18/19 and every 10 years Varicella Vaccine Dose 1 due 12/18/19 One-time only Satisfied (in the past 1 year) There are no satisfied recommendations within the defined date range Normal [facility] Cult Urineon 06-25-2019 Cult Urine Test performed at [facility] ORGANISM: *Staphylococcus saprophyticus (ID: 1) >100,000 CFU/ml Routine susceptibility testing of S. saprophyticus urine isolates is not performed because uncomplicated UTIs respond to urine concentrations of agents commonly used (e.g. nitrofurantion, TMP/SMX or a quinolone). Normal [facility] Comment on above: Performed By: #### C _URI #### [place] [address] Urinalysis Routineon 020 Appearance (U) 3+ (CLOUDY) Normal [facility] Comment on above: Performed By: #### L URIN #### [place] [address] Bilirubin Urine * Normal Negative [facility] Comment on above: Performed By: #### L URIN #### [place] [address] Color (U) RED Normal [facility] Comment on above: Performed By: #### L URIN #### [place] [address] Comment Urines See Below Normal [facility] Comment on above: Result Comment: Heber r abnormal-macroscopic not done. Performed By: #### L URIN #### [place] [address] Ep Cells Urine 2-5 Normal 0-5 [facility] Comment on above: Performed By: #### L URIN #### [place] [address] Glucose Ql (U) * Normal Negative [facility] Comment on above: Performed By: #### L URIN #### [facility] [address] [place] [address] Hemoglobin,Urine * Normal Negative [facility] Comment on above: Performed By: #### L URIN #### [facility] [address] [place] [address] Ketone Urine * Normal Negative [facility] Comment on above: Performed By: #### L URIN #### [facility] [address] [place] [address] Leukocytes Esterase * Normal Negative [facility] Comment on above: Performed By: #### L URIN #### [facility] [address] [place] [address] Nitrites Urine * Normal Negative [facility] Comment on above: Performed By: #### L URIN #### [place] [address] pH (U) * Normal 5.0-8.0 [facility] Comment on above: Performed By: #### L URIN #### [place] [address] Protein (U) [Mass/Vol] * Normal Negative [facility] Comment on above: Performed By: #### L URIN #### [facility] [address] [place] [address] RBC LM.HPF (Urine sed) [#/Area] /[HPF] Abnormal 0-3 [facility] Comment on above: Performed By: #### L URIN #### [facility] [address] [place] [address] Specific [place], Ur * Normal 1.005-1.030 [facility] Comment on above: Performed By: #### L URIN #### [place] [address] Urobilinogen,Ur * Normal 0.2-1.0 [facility] Comment on above: Performed By: #### L URIN #### [place] [address] WBC LM.HPF (Urine sed) [#/Area] 0-2 Normal 0-5 [facility] Comment on above: Performed By: #### L URIN #### [facility] [address] [place], [place] [address] Urine HCG, Qual.on 0 Beta HCG ( test) Ql (U) Negative Normal Negative [facility] Comment on above: Performed By: #### L HCG2 #### [facility] [address] [place] [id number] Chlamydia and GC PCR Panelon 11-06-2018 Chlamydia and GC PCR Panel Chlamydia trachomatis PCR --> Status: F NOT Detected Chlamydia trachomatis Nucleic Acid NOT Detected by DNA Amplification using the FTBpro System. Culture is the only recommended test in medical-legal cases such as suspected child abuse or molestation. Chlamydia trachomatis Nucleic Acid NOT Detected by DNA Amplification using the [employer] System. Culture is the only recommended test in medical-legal cases such as suspected child abuse or molestation. Neisseria gonorrhoeae PCR --> Status: F NOT Detected Neisseria gonorrhoeae Nucleic Acid NOT Detected by DNA Amplification using the [employer] System. Culture is the only recommended test in medical-legal cases such as suspected child abuse or molestation. Neisseria gonorrhoeae Nucleic Acid NOT Detected by DNA Amplification using the [employer] System. Culture is the only recommended test in medical-legal cases such as suspected child abuse or molestation. Normal [facility] Comment on above: Order Comment: Speci men Source Comment:Cervix Performed By: #### C TNGP #### [facility] [address] [place] [address] Complete Urinalysison 2018 Appearance (U) Clear Normal [facility] Comment on above: Result Comment: Refe rence Range: Clear Performed By: #### H CGUR, CUA2 #### [facility] [address] [place] [address] Bacteria LM.HPF (Urine sed) [#/Area] Few (1-5) Normal [facility] Comment on above: Result Comment: Refe rence Range: Negative Performed By: #### H CGUR, CUA2 #### [facility] [address] [place] [address] Bilirubin,Urine 1 + mg/dL Normal [facility] Comment on above: Result Comment: Refe rence Range: Negative Performed By: #### H CGUR, CUA2 #### [facility] [address] [place] [address] Color (U) Yellow Normal [facility] Comment on above: Result Comment: Refe rence Range: Lt. Yellow Performed By: #### H CGUR, CUA2 #### [facility] [address] [place] [address] Glucose Ql (U) NEG (Normal) Normal [facility] Comment on above: Result Comment: Refe rence Range: Normal (<70) Performed By: #### H CGUR, CUA2 #### [facility] [address] [place] [address] Ketone,Urine 1+ (small) Normal [facility] Comment on above: Result Comment: Refe rence Range: Negative Performed By: #### H CGUR, CUA2 #### [facility] [address] [place] [address] Leukocytes,Urine Trace Normal [facility] Comment on above: Result Comment: Refe rence Range: Negative Performed By: #### H CGUR, CUA2 #### [facility] [address] [place] [address] Mucous Threads Moderate Normal [facility] Comment on above: Result Comment: Refe rence Range: Negative Performed By: #### H CGUR, CUA2 #### [place] [address] [place] [address] Nitrites,Urine Negative Normal [facility] Comment on above: Result Comment: Refe rence Range: Negative Performed By: #### H CGUR, CUA2 #### [facility] [address] [place] [address] Occult Blood,Urine Trace Normal [facility] Comment on above: Result Comment: Refe rence Range: Negative Performed By: #### H CGUR, CUA2 #### [facility] [address] [place] [address] pH (U) 5.0 Normal 5.0-8.0 [facility] Comment on above: Performed By: #### H CGUR, CUA2 #### [address] [address] Protein (U) [Mass/Vol] 1+ (30) Normal [facility] Comment on above: Result Comment: Refe rence Range: Negative Performed By: #### H CRISTIAN, CUA2 #### [address] [address] RBC LM.HPF (Urine sed) [#/Area] 0 - 2 Normal [facility] Comment on above: Result Comment: Refe rence Range: 0-2 Performed By: #### H CGLUCIO, CUA2 #### [address] [address] Specific [place],Urine 1.025 Normal 1.005-1.030 S [facility] Comment on above: Performed By: #### H CRISTIAN, CUA2 #### [address] [address] Squamous Epithelial 11 - 25 Normal [facility] Comment on above: Result Comment: Refe rence Range: 3-5 Performed By: #### H CRISTIAN, CUA2 #### [address] [address] Urobilinogen,Urine 4.0 mg/dL Normal [facility] Comment on above: Result Comment: Refe rence Range: Normal (0-1) Performed By: #### H CRISTIAN, CUA2 #### [address] [address] VOLUME, URINE 12 ml Normal [facility] Comment on above: Performed By: #### H CRISTIAN, CUA2 #### [address] [address] WBC LM.HPF (Urine sed) [#/Area] 0 - 2 Normal [facility] Comment on above: Result Comment: Refe rence Range: 0-5 Performed By: #### H CGLUCIO, CUA2 #### [address] [address] HCG,Urine Qualon 11-05-2018 Beta HCG ( test) Ql (U) Negative Normal Negative [facility] Comment on above: Result Comment: Preg miranda is the most common reason for HCG in urine, although choriocarcinoma, hydatidiform mole, and certain nontropho- blastic malignancies also result in detectable urinary HCG levels. Sensitivity = 20mIU/mL. Performed By: #### H CGUR, CUA2 #### [facility] [address] [place] [address] Vaginitis Panel PCRon 2018 Vaginitis Panel PCR Bacterial Vaginosis Markers PCR --> Status: F Negative Yousuf spp. PCR --> Status: F Negative Yousuf glabrata PCR --> Status: F Negative Yousuf krusei PCR --> Status: F Negative Trichomonas vaginalis PCR --> Status: F Negative Expected Value: Negative Method: Real Time PCR by BD-MAX Expected Value: Negative Method: Real Time PCR by BD-MAX Normal [employer] Comment on above: Order Comment: Speci men Source Comment:Vaginal Use UVE Collection Kit Performed By: #### V GPCR #### [facility] [address] [place] [address] Chlamydia and GC PCR Panelon 08-03-2018 Chlamydia and GC PCR Panel Chlamydia trachomatis PCR --> Status: F NOT Detected Chlamydia trachomatis Nucleic Acid NOT Detected by DNA Amplification using the [employer]epheid System. Culture is the only recommended test in medical-legal cases such as suspected child abuse or molestation. Chlamydia trachomatis Nucleic Acid NOT Detected by DNA Amplification using the [employer]epheid System. Culture is the only recommended test in medical-legal cases such as suspected child abuse or molestation. Neisseria gonorrhoeae PCR --> Status: F NOT Detected Neisseria gonorrhoeae Nucleic Acid NOT Detected by DNA Amplification using the [employer]epheid System. Culture is the only recommended test in medical-legal cases such as suspected child abuse or molestation. Neisseria gonorrhoeae Nucleic Acid NOT Detected by DNA Amplification using the Cepheid System. Culture is the only recommended test in medical-legal cases such as suspected child abuse or molestation. Normal [employer] Comment on above: Order Comment: Speci men Source Comment:Cervix Performed By: #### C TNGP #### [facility] [employer] [facility] [address] [place] [address] HCG,Urine Qualon 08-02-2018 Beta HCG ( test) Ql (U) Negative Normal Negative [facility] Comment on above: Result Comment: Preg miranda is the most common reason for HCG in urine, although choriocarcinoma, hydatidiform mole, and certain nontropho- blastic malignancies also result in detectable urinary HCG levels. Sensitivity = 20mIU/mL. Performed By: #### U AMAC, HCGUR, UAMIC #### [address] [address] Urinalysis,Macroon 9 Appearance (U) Clear Normal Clear [facility] Comment on above: Performed By: #### U AMAC, HCGUR, UAMIC #### [address] [address] Bilirubin,Ur Negative Normal Negative [facility] Comment on above: Performed By: #### U AMAC, HCGUR, UAMIC #### [address] [address] Color (U) Yellow Normal Lt. Yellow [facility] Comment on above: Performed By: #### U AMAC, HCGUR, UAMIC #### [address] [address] Glucose Ql (U) NEG (Normal) Normal Negative [facility] Comment on above: Performed By: #### U AMAC, HCGUR, UAMIC #### [address] [address] Ketone,Urine Negative Normal Negative [facility] Comment on above: Performed By: #### U AMAC, HCGUR, UAMIC #### [address] [address] Nitrite Ql (U) Negative Normal Negative [facility] Comment on above: Performed By: #### U AMAC, HCGUR, UAMIC #### [address] [address] Occult Blood,Ur Negative Normal Negative [facility] Comment on above: Performed By: #### U AMAC, HCGUR, UAMIC #### [address] [address] pH (U) 6.5 Normal 5.0-8.0 [facility] Comment on above: Performed By: #### U AMAC, HCGUR, UAMIC #### [address] [address] Protein (U) [Mass/Vol] Negative Normal Negative [facility] Comment on above: Performed By: #### U AMAC, HCGUR, UAMIC #### [address] [address] Specific [place],Urine 1.015 Normal 1.005-1.030 S [facility] Comment on above: Performed By: #### U AMAC, HCGUR, UAMIC #### [address] [address] Urobilinogen Qn (U) Normal (0.2) Normal 0-1 [facility] Comment on above: Performed By: #### U AMAC, HCGUR, UAMIC #### [address] [address] WBC (Bld) [#/Vol] Trace Normal Negative [facility] Comment on above: Performed By: #### U AMAC, HCGUR, UAMIC #### [address] [address] Urinalysis,Microscopicon Bacteria LM.HPF (Urine sed) [#/Area] Few (1-5) Normal Negative [facility] Comment on above: Performed By: #### U AMAC, HCGUR, UAMIC #### [address] [address] Ca Oxylate Crystals Moderate (6-50) Normal Negative [facility] Comment on above: Performed By: #### U AMAC, HCGUR, UAMIC #### [address] [address] Epithelial cells LM.HPF (Urine sed) [#/Area] 6 - 10 Normal 3-5 [facility] Comment on above: Performed By: #### U AMAC, HCGUR, UAMIC #### [address] [address] Mucous Threads Few Normal Negative [facility] Comment on above: Performed By: #### U AMAC, HCGUR, UAMIC #### [address] [address] RBC LM.HPF (Urine sed) [#/Area] Negative Normal 0-2 [facility] Comment on above: Performed By: #### U AMAC, HCGUR, UAMIC #### [facility] [address] [place] [address] WBC LM.HPF (Urine sed) [#/Area] 0 - 2 Normal 0-5 [facility] Comment on above: Performed By: #### U AMAC, HCGUR, UAMIC #### [facility] [address] [place] [address] GC/CHLAMYDIA AMPLIFICATIONon 06-29-2018 GC/CHLAMYDIA AMPLIFICATION GC AMPLIFICATION: Negative CHLAMYDIA AMPLIFICATION: Negative Normal Negative [facility] Comment on above: Performed By: #### G CA #### [facility] [address] [place] [address] HIV1 HIV2 AGAB SCRNon 2018 HIV AG-AB SCREEN Non-Reactive Normal Non-Reactive [facility] Comment on above: Order Comment: HIV Information: ?[place] Rev. code 3701.243(E): This information has been disclosed to you from confidential records protected from disclosure by state law. ?You shall make no further disclosure of this information without the specific, written, and informed release of the individual to whom it pertains, or as otherwise permitted by state law. ?A general authorization for the release of medical or other information is not sufficient for the purpose of the release of HIV test results or diagnoses. Result Comment: No HIV Infection. Performed By: #### h iv1 hiv2 agab scrn #### [facility] [address] [place] [address], HIV-1 AB Non-Reactive Normal Non-Reactive [facility] Comment on above: Order Comment: HIV Information: ?[place] Rev. code 3701.243(E): This information has been disclosed to you from confidential records protected from disclosure by state law. ?You shall make no further disclosure of this information without the specific, written, and informed release of the individual to whom it pertains, or as otherwise permitted by state law. ?A general authorization for the release of medical or other information is not sufficient for the purpose of the release of HIV test results or diagnoses. Performed By: #### h iv1 hiv2 agab scrn #### [facility] [address] [place] [address], HIV-1 P24 ANTIGEN Non-Reactive Normal Non-Reactive [facility] Comment on above: Order Comment: HIV Information: ?[place] Rev. code 3701.243(E): This information has been disclosed to you from confidential records protected from disclosure by state law. ?You shall make no further disclosure of this information without the specific, written, and informed release of the individual to whom it pertains, or as otherwise permitted by state law. ?A general authorization for the release of medical or other information is not sufficient for the purpose of the release of HIV test results or diagnoses. Performed By: #### h iv1 hiv2 agab scrn #### [facility] [address] [place] [address], HIV-2 AB Non-Reactive Normal Non-Reactive [facility] Comment on above: Order Comment: HIV Information: ?[place] Rev. code 3701.243(E): This information has been disclosed to you from confidential records protected from disclosure by state law. ?You shall make no further disclosure of this information without the specific, written, and informed release of the individual to whom it pertains, or as otherwise permitted by state law. ?A general authorization for the release of medical or other information is not sufficient for the purpose of the release of HIV test results or diagnoses. Performed By: #### h iv1 hiv2 agab scrn #### [facility] [address] [place] [address], URINALYSISon 06-29-2018 Bilirubin mass conc (U) Negative Normal Negative [facility] Comment on above: Order Comment: A negative leukocyte esterase AND negative nitrite test or absence of pyuria (urine WBC count <= 5-10) make a UTI (urinary tract infection) very unlikely in a non-neutropenic adult (<=5% likelihood in many studies). A positive leukocyte esterase, nitrite and/or pyuria is a nonspecific result. This can be seen in conditions other than a UTI e.g. asymptomatic bacteriuria, gynecologic infections, sexually transmitted infections, and noninfectious conditions (positive predictive value for UTI around 50%) Performed By: #### U AC #### [facility] [address] [place] [address], Color Nom (U) Yellow Normal Yellow [facility] Comment on above: Order Comment: A negative leukocyte esterase AND negative nitrite test or absence of pyuria (urine WBC count <= 5-10) make a UTI (urinary tract infection) very unlikely in a non-neutropenic adult (<=5% likelihood in many studies). A positive leukocyte esterase, nitrite and/or pyuria is a nonspecific result. This can be seen in conditions other than a UTI e.g. asymptomatic bacteriuria, gynecologic infections, sexually transmitted infections, and noninfectious conditions (positive predictive value for UTI around 50%) Performed By: #### U AC #### [facility] [address] [place] [address], Glucose Ql (U) Negative Normal Negative [facility] Comment on above: Order Comment: A negative leukocyte esterase AND negative nitrite test or absence of pyuria (urine WBC count <= 5-10) make a UTI (urinary tract infection) very unlikely in a non-neutropenic adult (<=5% likelihood in many studies). A positive leukocyte esterase, nitrite and/or pyuria is a nonspecific result. This can be seen in conditions other than a UTI e.g. asymptomatic bacteriuria, gynecologic infections, sexually transmitted infections, and noninfectious conditions (positive predictive value for UTI around 50%) Performed By: #### U AC #### [facility] [address] [place] [address], pH (U) 7.0 Normal 5.0-8.0 [facility] Comment on above: Order Comment: A negative leukocyte esterase AND negative nitrite test or absence of pyuria (urine WBC count <= 5-10) make a UTI (urinary tract infection) very unlikely in a non-neutropenic adult (<=5% likelihood in many studies). A positive leukocyte esterase, nitrite and/or pyuria is a nonspecific result. This can be seen in conditions other than a UTI e.g. asymptomatic bacteriuria, gynecologic infections, sexually transmitted infections, and noninfectious conditions (positive predictive value for UTI around 50%) Performed By: #### U AC #### [facility] [address] [place] [address], Protein mass conc (U) Negative Normal Negative [facility] Comment on above: Order Comment: A negative leukocyte esterase AND negative nitrite test or absence of pyuria (urine WBC count <= 5-10) make a UTI (urinary tract infection) very unlikely in a non-neutropenic adult (<=5% likelihood in many studies). A positive leukocyte esterase, nitrite and/or pyuria is a nonspecific result. This can be seen in conditions other than a UTI e.g. asymptomatic bacteriuria, gynecologic infections, sexually transmitted infections, and noninfectious conditions (positive predictive value for UTI around 50%) Performed By: #### U AC #### [facility] [address] [place] [address], RBC #/vol (U) 0-2 Normal 0-2 [facility] Comment on above: Order Comment: A negative leukocyte esterase AND negative nitrite test or absence of pyuria (urine WBC count <= 5-10) make a UTI (urinary tract infection) very unlikely in a non-neutropenic adult (<=5% likelihood in many studies). A positive leukocyte esterase, nitrite and/or pyuria is a nonspecific result. This can be seen in conditions other than a UTI e.g. asymptomatic bacteriuria, gynecologic infections, sexually transmitted infections, and noninfectious conditions (positive predictive value for UTI around 50%) Performed By: #### U AC #### [facility] [address] [place] [address], Specific gravity Relative Density (U) 1.014 Normal [facility] Comment on above: Order Comment: A negative leukocyte esterase AND negative nitrite test or absence of pyuria (urine WBC count <= 5-10) make a UTI (urinary tract infection) very unlikely in a non-neutropenic adult (<=5% likelihood in many studies). A positive leukocyte esterase, nitrite and/or pyuria is a nonspecific result. This can be seen in conditions other than a UTI e.g. asymptomatic bacteriuria, gynecologic infections, sexually transmitted infections, and noninfectious conditions (positive predictive value for UTI around 50%) Performed By: #### U AC #### [facility] [address] [place] [address], SQUAMOUS EPITHELIAL 0-2 Normal 0-10 [facility] Comment on above: Order Comment: A negative leukocyte esterase AND negative nitrite test or absence of pyuria (urine WBC count <= 5-10) make a UTI (urinary tract infection) very unlikely in a non-neutropenic adult (<=5% likelihood in many studies). A positive leukocyte esterase, nitrite and/or pyuria is a nonspecific result. This can be seen in conditions other than a UTI e.g. asymptomatic bacteriuria, gynecologic infections, sexually transmitted infections, and noninfectious conditions (positive predictive value for UTI around 50%) Performed By: #### U AC #### [facility] [address] [place] [address], U APPEAR Clear Normal Clear [facility] Comment on above: Order Comment: A negative leukocyte esterase AND negative nitrite test or absence of pyuria (urine WBC count <= 5-10) make a UTI (urinary tract infection) very unlikely in a non-neutropenic adult (<=5% likelihood in many studies). A positive leukocyte esterase, nitrite and/or pyuria is a nonspecific result. This can be seen in conditions other than a UTI e.g. asymptomatic bacteriuria, gynecologic infections, sexually transmitted infections, and noninfectious conditions (positive predictive value for UTI around 50%) Performed By: #### U AC #### [facility] [address] [place] [address], U BACTERIA Few Normal [facility] Comment on above: Order Comment: A negative leukocyte esterase AND negative nitrite test or absence of pyuria (urine WBC count <= 5-10) make a UTI (urinary tract infection) very unlikely in a non-neutropenic adult (<=5% likelihood in many studies). A positive leukocyte esterase, nitrite and/or pyuria is a nonspecific result. This can be seen in conditions other than a UTI e.g. asymptomatic bacteriuria, gynecologic infections, sexually transmitted infections, and noninfectious conditions (positive predictive value for UTI around 50%) Performed By: #### U AC #### [facility] [address] [place] [address], U BLOOD Moderate Abnormal Negative [facility] Comment on above: Order Comment: A negative leukocyte esterase AND negative nitrite test or absence of pyuria (urine WBC count <= 5-10) make a UTI (urinary tract infection) very unlikely in a non-neutropenic adult (<=5% likelihood in many studies). A positive leukocyte esterase, nitrite and/or pyuria is a nonspecific result. This can be seen in conditions other than a UTI e.g. asymptomatic bacteriuria, gynecologic infections, sexually transmitted infections, and noninfectious conditions (positive predictive value for UTI around 50%) Performed By: #### U AC #### [facility] [address] [place] [address], U KETONE Negative Normal Negative [facility] Comment on above: Order Comment: A negative leukocyte esterase AND negative nitrite test or absence of pyuria (urine WBC count <= 5-10) make a UTI (urinary tract infection) very unlikely in a non-neutropenic adult (<=5% likelihood in many studies). A positive leukocyte esterase, nitrite and/or pyuria is a nonspecific result. This can be seen in conditions other than a UTI e.g. asymptomatic bacteriuria, gynecologic infections, sexually transmitted infections, and noninfectious conditions (positive predictive value for UTI around 50%) Performed By: #### U AC #### [facility] [address] [place] [address], U LEUK Negative Normal Negative [facility] Comment on above: Order Comment: A negative leukocyte esterase AND negative nitrite test or absence of pyuria (urine WBC count <= 5-10) make a UTI (urinary tract infection) very unlikely in a non-neutropenic adult (<=5% likelihood in many studies). A positive leukocyte esterase, nitrite and/or pyuria is a nonspecific result. This can be seen in conditions other than a UTI e.g. asymptomatic bacteriuria, gynecologic infections, sexually transmitted infections, and noninfectious conditions (positive predictive value for UTI around 50%) Performed By: #### U AC #### [facility] [address] [place] [address], U NITRITE Negative Normal Negative [facility] Comment on above: Order Comment: A negative leukocyte esterase AND negative nitrite test or absence of pyuria (urine WBC count <= 5-10) make a UTI (urinary tract infection) very unlikely in a non-neutropenic adult (<=5% likelihood in many studies). A positive leukocyte esterase, nitrite and/or pyuria is a nonspecific result. This can be seen in conditions other than a UTI e.g. asymptomatic bacteriuria, gynecologic infections, sexually transmitted infections, and noninfectious conditions (positive predictive value for UTI around 50%) Performed By: #### U AC #### [facility] [address] [place] [address], U UROBILI Negative Normal 0.1 - 1.0 [facility] Comment on above: Order Comment: A negative leukocyte esterase AND negative nitrite test or absence of pyuria (urine WBC count <= 5-10) make a UTI (urinary tract infection) very unlikely in a non-neutropenic adult (<=5% likelihood in many studies). A positive leukocyte esterase, nitrite and/or pyuria is a nonspecific result. This can be seen in conditions other than a UTI e.g. asymptomatic bacteriuria, gynecologic infections, sexually transmitted infections, and noninfectious conditions (positive predictive value for UTI around 50%) Performed By: #### U AC #### [facility] [address] [place] [address], WBC #/vol (U) 0-2 Normal 0-2 [facility] Comment on above: Order Comment: A negative leukocyte esterase AND negative nitrite test or absence of pyuria (urine WBC count <= 5-10) make a UTI (urinary tract infection) very unlikely in a non-neutropenic adult (<=5% likelihood in many studies). A positive leukocyte esterase, nitrite and/or pyuria is a nonspecific result. This can be seen in conditions other than a UTI e.g. asymptomatic bacteriuria, gynecologic infections, sexually transmitted infections, and noninfectious conditions (positive predictive value for UTI around 50%) Performed By: #### U AC #### [facility] [address] [place] [address], URINALYSIS,AUTO-IN OFFICEon 06-29-2018 BILIRUBIN, URINE POC Negative Normal Negative [facility] Comment on above: Order Comment: TEST PERFORMED AT: Emergency Department POC Laboratory [address] [place] [address] [place], [place] Performed By: #### 8 1003 #### [facility] [address] [place] [address] [place], [place] BLOOD, URINE POC Large Abnormal Negative [facility] Comment on above: Order Comment: TEST PERFORMED AT: Emergency Department [facility] [address] [place] [address] [place], [place] [address] Performed By: #### 8 1003 #### [facility] [address] [facility] [place], [place] CLARITY, POC Clear Normal [facility] Comment on above: Order Comment: TEST PERFORMED AT: Emergency Department [facility]OC Laboratory [address] [facility] [address] [place], [place] [address] Performed By: #### 8 1003 #### [facility] [address] [facility] [address] [place], [place] COLOR, POC Yellow Normal [facility] Comment on above: Order Comment: TEST PERFORMED AT: Emergency Department [facility]OC Laboratory [address] [facility] [address] [place], [place] [address] Performed By: #### 8 1003 #### [facility] [address] [facility] [address] [place], [place] GLUCOSE, URINE POC Negative Normal Negative [facility] Comment on above: Order Comment: TEST PERFORMED AT: Emergency Department [facility]OC Laboratory [address] [facility] [place], [place] [address] Performed By: #### 8 1003 #### [facility] [address] [place] [address] [place], [place] KETONES, URINE POC Negative Normal Negative [facility] Comment on above: Order Comment: TEST PERFORMED AT: Emergency Department [facility]OC Laboratory [address] [facility] [place], [place] Performed By: #### 8 1003 #### [facility] [address] [place] [address] [place], [place] LEUKOCYTES, URINE POC Negative Normal Negative [facility] Comment on above: Order Comment: TEST PERFORMED AT: Emergency Department [facility]OC [facility] [address] [facility] [place], [place] [address] Performed By: #### 8 1003 #### [facility] [address] [facility] [address] [place], [place] NITRITES, URINE POC Negative Normal Negative [facility] Comment on above: Order Comment: TEST PERFORMED AT: Emergency Department [facility]OC Laboratory [address] [facility] [place], [place] Performed By: #### 8 1003 #### [facility] [address] [facility] [address] [place], [place] PH, URINE POC 7.0 Normal 5.0-8.0 [facility] Comment on above: Order Comment: TEST PERFORMED AT: Emergency Department [facility]OC Laboratory [address] [facility] [place], [place] Performed By: #### 8 1003 #### [facility] [address] [facility] [address] [place] Protein mass conc (U) Negative Normal Negative [facility] Comment on above: Order Comment: TEST PERFORMED AT: Emergency Department [facility]OC Laboratory [address] [facility] [place], [place] Performed By: #### 8 1003 #### [facility] [address] [facility] [address] [place], [place] SPECIFIC GRAVITY, POC 1.015 Normal 1.005 - 1.030 [facility] Comment on above: Order Comment: TEST PERFORMED AT: Emergency Department POC Laboratory [address] [facility] [address] [place], [place] [address] Performed By: #### 8 1003 #### [facility] [address] [facility] [address] [place], [place] UROBILINOGEN, URINE POC 0.2 Normal 0.2 - 1.0 [facility] Comment on above: Order Comment: TEST PERFORMED AT: Emergency Department POC Laboratory [address] [facility] [address] [place], [place] [address] Performed By: #### 8 1003 #### [facility] [address] [facility] [address] [place], [place] WET MOUNT PREPARATIONon 06-09 WET MOUNT PREPARATION CLUE CELLS: Moderate (20-70%) WBC: 0-2 TRICHOMONAS REFLEX: None Seen YEAST: None Seen SPERM: None Seen Normal None Seen [facility] Comment on above: Performed By: #### C R WET #### [facility] [address] [place] [address] [place], [place] Vital Signs Date Time Vital Sign Value Performing Clinician Facility 01-01-2025 08:16-0400 Body mass index (BMI) [Ratio] 31.07 kg/m2 Yosvany Ramey PA-C Work Phone: [facility] 01-01-2025 08:16-0400 Body temperature 97.9 [degF] Yosvany Ramey PA-C Work Phone: [facility] 01-01-2025 08:16-040 Body weight 82.1 kg Yosvany Ramey PA-C Work Phone: [facility] 01-01-2025 08:16-0400 Diastolic blood pressure 71 mm[Hg] Yosvany Tanvir PA-C Work Phone: [facility] 01-01-2025 08:16-0400 Heart rate 84 /min Yosvany Ramey PA-C Work Phone: [facility] 01-01-2025 08:16-0400 Respiratory rate 18 /min Yosvany Ramey PA-C Work Phone: [facility] 01-01-2025 08:16-0400 SaO2% (BldA) [Mass fraction] 98 % Yosvany Ramey PA-C Work Phone: [facility] 01-01-2025 08:16-0400 Systolic blood pressure 106 mm[Hg] Yosvany Ramey PA-C Work Phone: [facility] 12-23-2024 14:16-0400 Body height 162.6 cm Mario Garcia MD Work Phone: [facility] 12-23-2024 14:16-0400 Body mass index (BMI) [Ratio] 31.07 kg/m2 Mario Garcia MD Work Phone: [facility] 12-23-2024 14:16-0400 Body temperature 98.01 [degF] Mario Garcia MD Work Phone: [facility] 12-23-2024 14:16-0400 Body weight 82.1 kg Mario Garcia MD Work Phone: [facility] 12-23-2024 14:16-0400 Diastolic blood pressure 72 mm[Hg] Mario Garcia MD Work Phone: [facility] 12-23-2024 14:16-0400 Heart rate 85 /min Mario Garcia MD Work Phone: [facility] 12-23-2024 14:16-0400 Respiratory rate 20 /min Mario Garcia MD Work Phone: [facility] 12-23-2024 14:16-0400 SaO2% (BldA) [Mass fraction] 98 % Mario Garcia MD Work Phone: [facility] 12-23-2024 14:16-0400 Systolic blood pressure 108 mm[Hg] Mario Garcia MD Work Phone: [facility] 12-04-2024 10:30-0400 Body mass index (BMI) [Ratio] 29.7 kg/m2 Jyotsna Guan MD Work Phone: [facility] 12-04-2024 10:30-0400 Body weight 78.47 kg Jyotsna Guan MD Work Phone: [facility] 12-04-2024 10:30-0400 Diastolic blood pressure 60 mm[Hg] Jyotsna Guan MD Work Phone: [facility] 12-04-2024 10:30-0400 Systolic blood pressure 120 mm[Hg] Jyotsna Guan MD Work Phone: [facility] 11-28-2024 14:23-0400 Body mass index (BMI) [Ratio] 29.59 kg/m2 Octavia Herzog MD Work Phone: [facility] 11-28-2024 14:23-0400 Body weight 78.2 kg Octavia Herzog MD Work Phone: [facility] 11-28-2024 14:23-0400 Diastolic blood pressure 78 mm[Hg] Octavia Herzog MD Work Phone: [facility] 11-28-2024 14:23-0400 Systolic blood pressure 110 mm[Hg] Octavia Herzog MD Work Phone: [facility] 10-31-2024 08:56-0400 Body mass index (BMI) [Ratio] 26.78 kg/m2 Klarissa Rain MD Work Phone: [facility] 10-31-2024 08:56-0400 Body weight 70.76 kg Klarissa Rain MD Work Phone: [facility] 10-31-2024 08:56-0400 Diastolic blood pressure 60 mm[Hg] Klarissa Rain MD Work Phone: [facility] 10-31-2024 08:56-0400 Systolic blood pressure 102 mm[Hg] Klarissa Rain MD Work Phone: [facility] 10-03-2024 10:23-0400 Body mass index (BMI) [Ratio] 25.16 kg/m2 Octavia Herzog MD Work Phone: [facility] 10-03-2024 10:23-0400 Body weight 66.5 kg Octavia Herzog MD Work Phone: [facility] 10-03-2024 10:23-0400 Diastolic blood pressure 70 mm[Hg] Octavia Herzog MD Work Phone: [facility] 10-03-2024 10:23-0400 Systolic blood pressure 100 mm[Hg] Octavia Herzog MD Work Phone: [facility] 09-11-2024 13:04-0400 Body mass index (BMI) [Ratio] 25.34 kg/m2 Sunitha Plotts SPECIAL SERVICES COORDINATOR.CNM Work Phone: [facility] 09-11-2024 13:04-0400 Body weight 66.95 kg Sunitha Plotts SPECIAL SERVICES COORDINATOR.CNM Work Phone: [facility] 09-11-2024 13:04-0400 Diastolic blood pressure 62 mm[Hg] Sunitha Plotts SPECIAL SERVICES COORDINATOR.CNM Work Phone: [facility] 09-11-2024 13:04-0400 Systolic blood pressure 100 mm[Hg] Sunitha Plotts SPECIAL SERVICES COORDINATOR.CNM Work Phone: [facility] 09-05-2024 14:33-0400 Body mass index (BMI) [Ratio] 24.72 kg/m2 Sudarshan Hong MD Work Phone: [facility] 09-05-2024 14:33-0400 Body weight 65.32 kg Sudarshan Hong MD Work Phone: [facility] 09-05-2024 14:33-0400 Diastolic blood pressure 62 mm[Hg] Sudarshan Hong MD Work Phone: [facility] 09-05-2024 14:33-0400 Systolic blood pressure 104 mm[Hg] Sudarshan Hong MD Work Phone: [facility] 08-22-2024 08:50-0400 Body mass index (BMI) [Ratio] 24.72 kg/m2 Freda Haury SPECIAL SERVICES COORDINATOR.MED DIR Work Phone: [facility] 08-22-2024 08:50-0400 Body weight 65.32 kg Freda Haury SPECIAL SERVICES COORDINATOR.MED DIR Work Phone: [facility] 08-22-2024 08:50-0400 Diastolic blood pressure 60 mm[Hg] Freda Haury SPECIAL SERVICES COORDINATOR.MED DIR Work Phone: [facility] 08-22-2024 08:50-0400 Systolic blood pressure 100 mm[Hg] Freda Haury SPECIAL SERVICES COORDINATOR.MED DIR Work Phone: [facility] 08-15-2024 14:46-0400 Body height 162.6 cm Agustín Danielle SPECIAL SERVICES COORDINATOR.MED DIR Work Phone: [facility] 08-15-2024 14:46-0400 Body mass index (BMI) [Ratio] 24.99 kg/m2 Agustín Danielle SPECIAL SERVICES COORDINATOR.MED DIR Work Phone: [facility] 08-15-2024 14:46-0400 Body temperature 98.49 [degF] Agustín Danielle SPECIAL SERVICES COORDINATOR.MED DIR Work Phone: [facility] 08-15-2024 14:46-0400 Body weight 66.04 kg Agustín Danielle SPECIAL SERVICES COORDINATOR.MED DIR Work Phone: [facility] 08-15-2024 14:46-0400 Diastolic blood pressure 62 mm[Hg] Agustín Danielle SPECIAL SERVICES COORDINATOR.MED DIR Work Phone: [facility] 08-15-2024 14:46-0400 Heart rate 76 /min Agustín Danielle SPECIAL SERVICES COORDINATOR.MED DIR Work Phone: [facility] 08-15-2024 14:46-0400 SaO2% (BldA) [Mass fraction] 98 % Agustín Blackwell SPECIAL SERVICES COORDINATOR.MED DIR Work Phone: [facility] 08-15-2024 14:46-0400 Systolic blood pressure 102 mm[Hg] Agustín Blackwell SPECIAL SERVICES COORDINATOR.MED DIR Work Phone: [facility] 07-15-2024 21:39-0400 Body temperature 97.7 [degF] Dr. Jacinto Abarca DO Work Phone: [facility] 07-15-2024 21:39-0400 Diastolic blood pressure 63 mm[Hg] Dr. Jacinto Abarca DO Work Phone: 4(405)[phone] [place] [address] 07-15-2024 21:39-0400 Heart rate 72 /min Dr. Jacinto Abarca DO Work Phone: 3(623)[phone] [place] [address] 07-15-2024 21:39-0400 Respiratory rate 15 /min Dr. Jacinto Abarca DO Work Phone: [facility] 07-15-2024 21:39-0400 SaO2% (BldA) [Mass fraction] 100 % Dr. Jacinto Abarca DO Work Phone: [facility] 07-15-2024 21:39-0400 Systolic blood pressure 100 mm[Hg] Dr. Jacinto Abarca DO Work Phone: [facility] 07-15-2024 16:36-0400 Body height 162.[address] Jacinto Abarca DO Work Phone: 9(023)[phone] [place] [address] 07-15-2024 16:36-0400 Body mass index (BMI) [Ratio] 25.4 kg/m2 Dr. Jacinto Abarca DO Work Phone: 7(841)[phone] [place] [address] 07-15-2024 16:36-0400 Body weight 67.[address] Jacinto Abarca DO Work Phone: 2(842)[phone] [place] [address] 07-10-2024 11:14-0400 Body mass index (BMI) [Ratio] 25.64 kg/m2 oJse Reese MD Work Phone: [facility] 07-10-2024 11:14-0400 Body weight 67.77 kg Jose Reese MD Work Phone: [facility] 07-10-2024 11:14-0400 Diastolic blood pressure 70 mm[Hg] Jose Reese MD Work Phone: [facility] 07-10-2024 11:14-0400 Systolic blood pressure 124 mm[Hg] Jose Reese MD Work Phone: [facility] 06-12-2024 17:33-0500 Diastolic blood pressure 56 mm[Hg] Keyona Conrad MD Work Phone: [facility] [employer] 06-12-2024 17:33-0500 Heart rate 80 /min Keyona Conrad MD Work Phone: [facility] [employer] 06-12-2024 17:33-0500 Respiratory rate 14 /min Keyona Conrad MD Work Phone: [facility] [employer] 06-12-2024 17:33-0500 SaO2% (BldA) [Mass fraction] 100 % Keyona Conrad MD Work Phone: [facility] [employer] 06-12-2024 17:33-0500 Systolic blood pressure 105 mm[Hg] Keyona Conrad MD Work Phone: [facility] 06-12-2024 14:52-0500 Body height 162.6 cm Keyona Conrad MD Work Phone: [facility] [employer] 06-12-2024 14:52-0500 Body mass index (BMI) [Ratio] 26.61 kg/m2 Keyona Conrad MD Work Phone: [facility] 06-12-2024 14:52-0500 Body weight 70.31 kg Keyona Conrad MD Work Phone: [facility] [employer] 06-12-2024 14:50-0500 Body temperature 97.81 [degF] Keyona Conrad MD Work Phone: [email or web address] 04-30-2024 08:39-0500 Body height 162.6 cm Carolynn Sheets DO Work Phone: [facility] 04-30-2024 08:39-0500 Body mass index (BMI) [Ratio] 27.46 kg/m2 Carolynn Sheets DO Work Phone: [facility] 04-30-2024 08:39-0500 Body temperature 97.59 [degF] Carolynn Sheets DO Work Phone: [facility] 04-30-2024 08:39-0500 Body weight 72.58 kg Carolynn Sheets DO Work Phone: [facility] 04-30-2024 08:39-0500 Diastolic blood pressure 64 mm[Hg] Carolynn Sheets DO Work Phone: [facility] 04-30-2024 08:39-0500 Heart rate 83 /min Carolynn Sheets DO Work Phone: [facility] 04-30-2024 08:39-0500 Respiratory rate 16 /min Carolynn Sheets DO Work Phone: [facility] 04-30-2024 08:39-0500 SaO2% (BldA) [Mass fraction] 93 % Carolynn Sheets DO Work Phone: [facility] 04-30-2024 08:39-0500 Systolic blood pressure 100 mm[Hg] Carolynn Sheets DO Work Phone: [facility] 08-11-2023 08:47-0400 Body height 162.6 cm Elisabet Queden SPECIAL SERVICES COORDINATOR.MED DIR Work Phone: [facility] 08-11-2023 08:47-0400 Body mass index (BMI) [Ratio] 32.08 kg/m2 Elisabet Queden SPECIAL SERVICES COORDINATOR.MED DIR Work Phone: [facility] 08-11-2023 08:47-0400 Body temperature 98.29 [degF] Elisabet Queden SPECIAL SERVICES COORDINATOR.MED DIR Work Phone: [facility] 08-11-2023 08:47-0400 Body weight 84.82 kg Elisabet Queden SPECIAL SERVICES COORDINATOR.MED DIR Work Phone: [facility] 08-11-2023 08:47-0400 Diastolic blood pressure 64 mm[Hg] Elisabet Queden SPECIAL SERVICES COORDINATOR.MED DIR Work Phone: [facility] 08-11-2023 08:47-0400 Heart rate 83 /min Elisabet Queden SPECIAL SERVICES COORDINATOR.MED DIR Work Phone: [facility] 08-11-2023 08:47-0400 Respiratory rate 18 /min Elisabet Queden SPECIAL SERVICES COORDINATOR.MED DIR Work Phone: [facility] 08-11-2023 08:47-0400 SaO2% (BldA) [Mass fraction] 97 % Elisabet Queden SPECIAL SERVICES COORDINATOR.MED DIR Work Phone: [facility] 08-11-2023 08:47-0400 Systolic blood pressure 122 mm[Hg] Elisabet Queden SPECIAL SERVICES COORDINATOR.MED DIR Work Phone: [facility] 07-10-2023 15:33-0400 Body height 162.6 cm Sylvia Trill SPECIAL SERVICES COORDINATOR.MED DIR Work Phone: [facility] 07-10-2023 15:33-0400 Body temperature 98.1 [degF] Sylvia Trill SPECIAL SERVICES COORDINATOR.MED DIR Work Phone: [facility] 07-10-2023 15:33-0400 Body weight 82.56 kg Sylvia Trill SPECIAL SERVICES COORDINATOR.MED DIR Work Phone: [facility] 07-10-2023 15:33-0400 Diastolic blood pressure 60 mm[Hg] Sylvia Trill SPECIAL SERVICES COORDINATOR.MED DIR Work Phone: [facility] 07-10-2023 15:33-0400 Heart rate 93 /min Sylvia Trill SPECIAL SERVICES COORDINATOR.MED DIR Work Phone: [facility] 07-10-2023 15:33-0400 Respiratory rate 18 /min Sylvia Trill SPECIAL SERVICES COORDINATOR.MED DIR Work Phone: [facility] 07-10-2023 15:33-0400 SaO2% (BldA) [Mass fraction] 97 % Sylvia Becker SPECIAL SERVICES COORDINATOR.MED DIR Work Phone: [facility] 07-10-2023 15:33-0400 Systolic blood pressure 110 mm[Hg] Sylvia Becker APRN.MED DIR Work Phone: [facility] 06-30-2023 10:20-0400 Body height 162.6 cm Malia Valles MD Work Phone: [facility] [employer] 06-30-2023 10:20-0400 Body mass index (BMI) [Ratio] 32.44 kg/m2 Malia Valles MD Work Phone: [facility] 06-30-2023 10:20-0400 Body weight 85.73 kg Malia Valles MD Work Phone: [facility] 06-30-2023 10:20-0400 Diastolic blood pressure 83 mm[Hg] Malia Valles MD Work Phone: [facility] 06-30-2023 10:20-0400 Heart rate 94 /min Malia Valles MD Work Phone: [facility] 06-30-2023 10:20-0400 Systolic blood pressure 120 mm[Hg] Malia Valles MD Work Phone: [facility] 06-09-2023 09:18-0500 Body height 162.6 cm Malia Valles MD Work Phone: [facility] [employer] 06-09-2023 09:18-0500 Body mass index (BMI) [Ratio] 32.61 kg/m2 Malia Valles MD Work Phone: [facility] 06-09-2023 09:18-0500 Body weight 86.18 kg Malia Valles MD Work Phone: [facility] 06-09-2023 09:18-0500 Diastolic blood pressure 74 mm[Hg] Malia Valles MD Work Phone: [facility] 06-09-2023 09:18-0500 Heart rate 88 /min Malia Valles MD Work Phone: [facility] 06-09-2023 09:18-0500 Systolic blood pressure 114 mm[Hg] Malia Valles MD Work Phone: [facility] 12-06-2022 14:40-0400 Body temperature 98.4 [degF] No Primary Care Physician [facility] 12-06-2022 14:40-0400 Diastolic blood pressure 82 mm[Hg] No Primary Care Physician [facility] 12-06-2022 14:40-0400 Heart rate 100 /min No Primary Care Physician [facility] 12-06-2022 14:40-0400 Respiratory rate 16 /min No Primary Care Physician [facility] 12-06-2022 14:40-0400 SaO2% (BldA) [Mass fraction] 97 % No Primary Care Physician [facility] 12-06-2022 14:40-0400 Systolic blood pressure 112 mm[Hg] No Primary Care Physician [facility] 10-25-2022 07:47-0400 Body height 162.6 cm Malia Valles MD Work Phone: [facility] 10-25-2022 07:47-0400 Body mass index (BMI) [Ratio] 32.1 kg/m2 Malia Valles MD Work Phone: [facility] 10-25-2022 07:47-0400 Body weight 84.82 kg Malia Valles MD Work Phone: [facility] 10-25-2022 07:47-0400 Diastolic blood pressure 71 mm[Hg] Malia Valles MD Work Phone: [facility] 10-25-2022 07:47-0400 Heart rate 90 /min Malia Valles MD Work Phone: [facility] 10-25-2022 07:47-0400 Systolic blood pressure 110 mm[Hg] Malia Valles MD Work Phone: [facility] 08-09-2021 09:39-0400 Body height 162.6 cm Elisabet Morgan APRN.CNP Work Phone: [facility] 08-09-2021 09:39-0400 Body temperature 97.5 [degF] Elisabet Queden SPECIAL SERVICES COORDINATOR.MED DIR Work Phone: [facility] 08-09-2021 09:39-0400 Body weight 87.09 kg Elisabet Queden SPECIAL SERVICES COORDINATOR.MED DIR Work Phone: [facility] 08-09-2021 09:39-0400 Diastolic blood pressure 70 mm[Hg] Elisabet Queden SPECIAL SERVICES COORDINATOR.MED DIR Work Phone: [facility] 08-09-2021 09:39-0400 Heart rate 107 /min Elisabet Queden SPECIAL SERVICES COORDINATOR.MED DIR Work Phone: [facility] 08-09-2021 09:39-0400 SaO2% (BldA) [Mass fraction] 97 % Elisabet Queden SPECIAL SERVICES COORDINATOR.MED DIR Work Phone: [facility] 08-09-2021 09:39-0400 Systolic blood pressure 114 mm[Hg] Elisabet Queden SPECIAL SERVICES COORDINATOR.MED DIR Work Phone: [facility] 07-12-2021 08:15-0400 Body height 162.6 cm Elisabet Queden SPECIAL SERVICES COORDINATOR.MED DIR Work Phone: [facility] 07-12-2021 08:15-0400 Body temperature 98.4 [degF] Elisabet Queden SPECIAL SERVICES COORDINATOR.MED DIR Work Phone: [facility] 07-12-2021 08:15-0400 Body weight 89.81 kg Elisabet Queden SPECIAL SERVICES COORDINATOR.MED DIR Work Phone: [facility] 07-12-2021 08:15-0400 Diastolic blood pressure 74 mm[Hg] Elisabet Queden SPECIAL SERVICES COORDINATOR.MED DIR Work Phone: [facility] 07-12-2021 08:15-0400 Heart rate 87 /min Elisabet Queden SPECIAL SERVICES COORDINATOR.MED DIR Work Phone: [facility] 07-12-2021 08:15-0400 SaO2% (BldA) [Mass fraction] 98 % Elisabet Morgan SPECIAL SERVICES COORDINATOR.MED DIR Work Phone: [facility] 07-12-2021 08:15-0400 Systolic blood pressure 116 mm[Hg] Elisabet Morgan SPECIAL SERVICES COORDINATOR.MED DIR Work Phone: [facility] Encounters Encounter Date Encounter Type Care Provider Facility Start: 02-17-2025 End: 02-17-2025 ambulatory ELISABET MORGAN Facility:[facility] Start: 02-03-2025 End: 02-03-2025 ambulatory ELISABET MORGAN Facility:[facility] Start: 01-24-2025 End: 01-24-2025 Emergency department patient visit ELISABET MORGAN Facility:[facility] Start: 01-20-2025 End: 01-20-2025 ambulatory JYOTSNA GUAN Facility:[facility] Start: 01-10-2025 End: 01-10-2025 ambulatory ELISABETCHRISTOS MORGAN Facility:[facility] Start: 01-01-2025 End: 01-01-2025 Office outpatient visit 15 minutes Yosvany Ramey PA-C Work Phone: [facility] Comment on above: state, [facility] ([facility]) (Primary Dx); Close exposure to COVID-19 virus; Fatigue, unspecified type Start: 12-27-2024 End: 12-27-2024 ambulatory ELISABET MORGAN Facility:[facility] Start: 12-23-2024 End: 12-23-2024 Office outpatient new 30 minutes Mario Garcia MD Work Phone: [facility] Comment on above: Left arm pain (Prima ry Dx) Start: 12-04-2024 End: 12-04-2024 Patient encounter procedure Jyotsna Guan MD Work Phone: OB/Gynecology Comment on above: Encounter for superv ision of high risk in second trimester, antepartum (HCC) (Primary Dx); Decreased movements in second trimester, single or unspecified fetus (HCC); 25 weeks gestation of (HCC) Start: 12-04-2024 End: 12-04-2024 ambulatory Sunitha Aguilar SPECIAL SERVICES COORDINATOR.CNM Work Phone: OB/Gynecology Comment on above: Baby movements Start: 11-28-2024 End: 11-28-2024 Patient encounter procedure Octavia Herzog MD Work Phone: OB/Gynecology Comment on above: Screening for diabet es mellitus (Primary Dx); 24 weeks gestation of (HCC); Encounter for supervision of high risk in second trimester, antepartum (HCC); Pain with urination; Vaginal discharge Start: 11-28-2024 End: 11-28-2024 ambulatory [facility] Start: 10-31-2024 End: 10-31-2024 Patient encounter procedure Whi Tech 1 Pump Attendant Mfm Wstr Mob Maternal Medicine Comment on above: Encounter for superv ision of high risk in first trimester, antepartum (HCC) Encounter for superv ision of high risk in second trimester, antepartum (HCC) (Primary Dx); 20 weeks gestation of (HCC) Start: 10-31-2024 End: 10-31-2024 ambulatory [facility] Start: 10-03-2024 End: 10-15-2024 Telephone encounter Octavia Herzog MD Work Phone: OB/Gynecology Comment on above: Records Start: 10-03-2024 End: 10-03-2024 Patient encounter procedure Octavia Herzog MD Work Phone: OB/Gynecology Comment on above: Encounter for superv ision of high risk in second trimester, antepartum (HCC) (Primary Dx); 16 weeks gestation of ([facility]) Start: 10-03-2024 End: 10-03-2024 ambulatory [facility] Start: 09-18-2024 End: 11-18-2024 Follow-up encounter Sunitha Aguilar APRN.CNM Work Phone: OB/Gynecology Start: 09-11-2024 End: 09-11-2024 ambulatory [facility] Start: 09-11-2024 End: 09-11-2024 Patient encounter procedure Whi Tech 1 Pump Attendant Mfm Wstr Mob Maternal Medicine Comment on above: Encounter for antena south screening for malformation using ultrasound (HCC) (Primary Dx); Encounter for (NT) nuchal translucency scan (HCC); 13 weeks gestation of (HCC) 13 weeks gestation o f (HCC) (Primary Dx); Encounter for supervision of high risk in first trimester, antepartum (HCC) Start: 09-11-2024 End: 09-11-2024 ambulatory ELISABET MORGAN Facility:[facility] Start: 09-09-2024 End: 11-09-2024 Follow-up encounter Marco East MD Work Phone: OB/Gynecology Start: 09-05-2024 End: 09-05-2024 ambulatory SUDARSHAN HONG Facility:[facility] Start: 09-05-2024 End: 09-05-2024 Patient encounter procedure Sudarshan Hong MD Work Phone: OB/Gynecology Comment on above: Encounter for superv ision of high risk in first trimester, antepartum (HCC) (Primary Dx); Cramping affecting , antepartum (HCC); Vaginal spotting; 12 weeks gestation of (HCC) Start: 09-04-2024 End: 09-04-2024 Telephone encounter Brooklyn Villalpando APRN.CNM Work Phone: OB/Gynecology Comment on above: ER F/U Start: 09-03-2024 End: 09-03-2024 Emergency department patient visit ELISABET MORGAN Facility:[facility] Start: 09-03-2024 End: 09-03-2024 ambulatory Elisabet Morgan SPECIAL SERVICES COORDINATOR.MED DIR Work Phone: [facility] Start: 09-03-2024 End: 09-03-2024 Follow-up encounter Elisabet Morgan APRN.MED DIR Work Phone: [facility] Comment on above: ED Follow-up ([place] [facility] 08/29/2024) Start: 08-29-2024 End: 08-30-2024 Emergency department patient visit Carlos Bliss Facility:[facility] Start: 08-23-2024 End: 10-23-2024 Follow-up encounter Freda Santillan APRN.CNP Work Phone: OB/Gynecology Start: 08-22-2024 End: 08-22-2024 Patient encounter procedure Freda Santillan APRN.MED DIR Work Phone: OB/Gynecology Comment on above: Cramping affecting p regnancy, antepartum (HCC) (Primary Dx); Vaginal discharge; Vaginal spotting; 10 weeks gestation of ([facility]); Use of nicotine during ([facility]); Nausea and vomiting during ([facility]) Start: 08-22-2024 End: 08-22-2024 ambulatory [facility] Start: 08-21-2024 End: 08-22-2024 Telephone encounter Freda Santillan APRN.MED DIR Work Phone: OB/Gynecology Comment on above: FMLA Paperwork Early OB Spotting Start: 08-18-2024 End: 08-19-2024 Follow-up encounter Agustín Blackwell APRN.CNP Work Phone: [facility] Comment on above: Results Start: 08-15-2024 End: 08-15-2024 Patient encounter procedure Agustín Blackwell APRN.MED DIR Work Phone: [facility] Comment on above: Non-recurrent acute suppurative otitis media of left ear without spontaneous rupture of tympanic membrane (Primary Dx); Sore throat; First trimester (HCC) Start: 08-15-2024 End: 08-15-2024 ambulatory [facility] Start: 08-06-2024 End: 08-07-2024 ambulatory [facility] Start: 08-06-2024 End: 08-06-2024 Telephone encounter Tiana Carpenter MD Work Phone: [facility] Start: 08-02-2024 End: 10-02-2024 Follow-up encounter Freda Santillan APRN.MED DIR Work Phone: OB/Gynecology Start: 08-01-2024 End: 08-01-2024 ambulatory ELISABET MORGAN Facility:[facility] Start: 07-15-2024 End: 07-15-2024 Emergency department patient visit Dr. Jacinto Abarca DO Work Phone: -Emergency Department Work Phone: Start: 07-15-2024 End: 07-17-2024 Telephone encounter Brooklyn Villalpando APRN.CNM Work Phone: OB/Gynecology Comment on above: Bleeding With Pregna ncy Start: 07-12-2024 End: 09-11-2024 Follow-up encounter Freda Santillan APRN.MED DIR Work Phone: OB/Gynecology Start: 07-10-2024 End: 07-10-2024 ambulatory ELISABET MORGAN Facility:[facility] Start: 07-10-2024 End: 07-10-2024 Patient encounter procedure Jose Resee MD Work Phone: OB/Gynecology Comment on above: 4 weeks gestation of (HCC) (Primary Dx) Start: 07-07-2024 End: 07-08-2024 Emergency department patient visit ELISABET MORGAN Facility:[facility] Start: 06-17-2024 End: 06-17-2024 ambulatory Elisabetchristos Morgan SPECIAL SERVICES COORDINATOR.MED DIR Work Phone: [facility] Start: 06-17-2024 End: 06-17-2024 Follow-up encounter Elisabet Francisco Eddie SPECIAL SERVICES COORDINATOR.MED DIR Work Phone: [facility] Comment on above: ED Follow-up ([facility] ED 06/12/2024) Start: 06-12-2024 End: 06-12-2024 Emergency department patient visit Keyona Conrad MD Work Phone: [facility] Comment on above: Pleuritic chest pain (Primary Dx); Acute cough Start: 04-30-2024 End: 04-30-2024 Patient encounter procedure Carolynn Humphery DO Work Phone: [facility] Comment on above: Lightheadedness (Rdaha jeffry Dx); Screening for thyroid disorder; Vaginal irritation Start: 04-30-2024 End: 04-30-2024 ambulatory [facility] Francisco MORGAN Facility:[facility] Start: 02-28-2024 End: 02-28-2024 Emergency department patient visit ELISABET MORGAN Facility:[facility] Start: 08-11-2023 Telephone encounter Elisabet Morgan SPECIAL SERVICES COORDINATOR.MED DIR Work Phone: [facility] Comment on above: Results Start: 08-11-2023 End: 08-11-2023 Patient encounter procedure Elisabet Grijalvasamy SPECIAL SERVICES COORDINATOR.MED DIR Work Phone: [facility] Comment on above: Right lower quadrant abdominal pain (Primary Dx); Prediabetes; Glucose found in urine on examination; Proteinuria, unspecified type; Itching in the vaginal area Start: 08-10-2023 Telephone encounter Elisabet A Eddie BARR.MED DIR Work Phone: [facility] Comment on above: Lab Orders Start: 07-14-2023 Telephone encounter Elisabet Singh Eddie SPECIAL SERVICES COORDINATOR.MED DIR Work Phone: [facility] Comment on above: Results Start: 07-11-2023 End: 07-11-2023 Subsequent hospital visit by physician [facility] Work Phone: [facility] Comment on above: Right lower quadrant abdominal pain [R10.31] Start: 07-10-2023 End: 07-10-2023 Patient encounter procedure Sylvia Becker APRN.MED DIR Work Phone: [facility] Comment on above: Right lateral abdomi nal pain (Primary Dx); Right lower quadrant abdominal pain; Rectal bleeding; Dyspareunia in female Start: 07-10-2023 Telephone encounter Sylvia Becker APRN.MED DIR Work Phone: [facility] Comment on above: Results (Labs, UA) Start: 06-30-2023 End: 06-30-2023 Office outpatient visit 15 minutes Malia Valles MD Work Phone: [facility] Comment on above: Pelvic pain in femal e (Primary Dx) Start: 06-30-2023 End: 06-30-2023 ambulatory MALIA VALLES [facility] Start: 06-23-2023 End: 06-23-2023 ambulatory JOSELYNWESLEY LOVELACE [facility] Start: 06-09-2023 End: 06-09-2023 Office outpatient visit 15 minutes Malia Valles MD Work Phone: [facility] Comment on above: Pelvic pain in femal e (Primary Dx); Vaginal discharge Start: 12-06-2022 End: 12-06-2022 ambulatory No Primary Care Physician [facility] Work Phone: Start: 12-06-2022 End: 12-06-2022 Patient encounter procedure No Primary Care Physician [facility] Work Phone: Start: 12-02-2022 Telephone encounter Malia kwon MD Work Phone: [facility] Comment on above: myrisk Start: 11-15-2022 End: 11-15-2022 Office outpatient visit 10 minutes Malia Valles MD Work Phone: [facility] Comment on above: Pelvic pain in femal e (Primary Dx); Cyst of left ovary; Family history of ovarian cancer Start: 11-04-2022 ambulatory Jeffry Balbuean [facility] Comment on above: ed outreach (Ed outr each/) Start: 10-25-2022 End: 10-25-2022 Office outpatient new 30 minutes Malia Valles MD Work Phone: [facility] Comment on above: Pelvic pain in femal e (Primary Dx); Vaginal discharge Start: 08-16-2021 Telephone encounter Elisabet Morgan APRN.MED DIR Work Phone: [facility] Comment on above: Results Start: 08-11-2021 Telephone encounter Elisabet A Queden SPECIAL SERVICES COORDINATOR.MED DIR Work Phone: [facility] Comment on above: Lab Orders Start: 08-09-2021 End: 08-09-2021 Patient encounter procedure Elisabet Singh Eddie SPECIAL SERVICES COORDINATOR.MED DIR Work Phone: [facility] Comment on above: Well woman exam with routine gynecological exam (Primary Dx); Screening for cervical cancer; Vaginal discharge; Bacterial vaginosis; Leukocytosis, unspecified type Start: 07-14-2021 Telephone encounter Elisabet Francisco Eddie SPECIAL SERVICES COORDINATOR.MED DIR Work Phone: [facility] Comment on above: Results Start: 07-12-2021 ambulatory Elisabet Francisco Nahomi en SPECIAL SERVICES COORDINATOR.MED DIR Work Phone: [facility] Comment on above: Diabetes test Start: 07-12-2021 Telephone encounter Elisabet Morgan SPECIAL SERVICES COORDINATOR.MED DIR Work Phone: [facility] Comment on above: Rx Refills Start: 07-12-2021 End: 07-12-2021 Patient encounter procedure Elisabet Francisco Eddie SPECIAL SERVICES COORDINATOR.MED DIR Work Phone: [facility] Comment on above: Well adult exam ([facility] jeffry Dx); Obesity, Class I, BMI 30-34.9; Bacterial vaginosis; Exposure to hepatitis C; Special screening examination for viral disease; Screening for HIV (human immunodeficiency virus); Screening for STD (sexually transmitted disease) Start: 07-12-2021 End: 07-12-2021 Patient encounter status Elisabet A Eddie SPECIAL SERVICES COORDINATOR.MED DIR Work Phone: [facility] Start: 06-29-2018 End: 06-29-2018 Emergency department patient visit UNKNOWN PROVIDER Facility:[facility] Procedures Date Procedure Procedure Detail Performing Clinician Start: 01-01-2025 Iadna respiratry pro be & rev trnscr 3-5 targets Gema Carmona PA-C Work Phone: Start: 12-27-2024 Antibody screen ELISABET MORGAN Comment on above: Order Comment: Speci men Type: BLOOD SPECIMEN Ordering Facility: [facility] Address: [address] [place] [address] Performed By: #### 5 [id number], [id number], [id number] #### [facility] CLIA [id number] [address] [place] [address] Start: 11-28-2024 Urnls dip stick/tabl et rgnt auto w/o microscopy Octavia Herzog MD Work Phone: Start: 10-31-2024 Us preg uterus after 1st trimest 04/10 gestation Freda Santillan APRN.MED DIR Work Phone: Start: 09-11-2024 Antibody screen ELISABET EDDIE Comment on above: Order Comment: Speci men Type: BLOOD SPECIMEN Ordering Facility: [facility] Address: [address] [place] [address] Performed By: #### 5 [id number], [id number], [id number] #### [facility] CLIA [id number] [address] [place] [address] [place] Start: 09-11-2024 Us preg uterus after 1st trimest 04/10 gestation Freda Santillan APRN.MED DIR Work Phone: Start: 09-05-2024 Urnls dip stick/tabl et rgnt auto w/o microscopy Marco East MD Work Phone: Start: 08-01-2024 Microscopic observat ion [Identifier] in Cervix by Cyto stain Mario Garcia MD Work Phone: Start: 07-15-[address] ic ultrasonography Dr. Jacinto Abarca DO Work Phone: Start: 06-12-2024 Assay of troponin quantitative Keyoan Conrad MD Work Phone: Start: 06-12-2024 Radiologic exam ches t 2 views Keyona Conrad MD Work Phone: Start: 06-12-2024 SARS-COV-2, FLU A/B, AND RSV COMBO Keyona Conrad MD Work Phone: Start: 06-12-2024 Urine test visual color cmprsn meths Keyona Conrad MD Work Phone: Start: 06-12-2024 Comprehensive metabo lic panel Keyona Conrad MD Work Phone: Start: 06-12-2024 Ecg routine ecg w/le ast 12 lds i&r only Keyona Conrad MD Work Phone: Start: 04-30-2024 Ecg routine ecg w/le ast 12 lds w/i&r Carolynn C Sheets DO Work Phone: Start: 08-11-2023 Urnls dip stick/tabl et rgnt auto w/o microscopy Elisabet [place] SPECIAL SERVICES COORDINATOR.[facility] Work Phone: Start: 07-11-2023 Ct abdomen & pelvis w/contrast material Sylvia Becker SPECIAL SERVICES COORDINATOR.MED DIR Work Phone: Start: 07-10-2023 UA DIP,URINE HCG (POC) Sylvia Becker SPECIAL SERVICES COORDINATOR.MED DIR Work Phone: Start: 07-10-2023 Urnls dip stick/tabl et rgnt auto w/o microscopy Sylvia Becker SPECIAL SERVICES COORDINATOR.MED DIR Work Phone: Start: 06-09-2023 End: 06-09-2023 Urnls dip stick/tablet rgnt non-auto w/o micrscp Malia Valles MD Work Phone: Start: 06-09-2023 SURESWAB(R) ADVANCED VAGINITIS PLUS, TMA (QUEST) Malia Valles MD Work Phone: Start: 12-06-2022 Plain chest X-ray No Pr imary Care Physician Start: 10-25-2022 Urine test visual color cmprsn meths Malia Valles MD Work Phone: Start: 08-09-2021 Iaadiadoo trichomona s vaginalis Elisabet Morgan SPECIAL SERVICES COORDINATOR.MED DIR Work Phone: Start: 08-09-2021 Adult depression scr eening assessment Elisabet Morgan SPECIAL SERVICES COORDINATOR.MED DIR Work Phone: Start: 08-09-2021 Microscopic observat ion [Identifier] in Cervix by Cyto stain Keyona Conrad MD Work Phone: Start: 07-12-2021 Adult depression scr eening assessment Elisabet Morgan SPECIAL SERVICES COORDINATOR.MED DIR Work Phone: Start: 06-29-2018 Antibody hiv-1&hiv-2 single result UNKNOWN PROVIDER Start: 06-29-2018 DISCHARGE PATIENT UNKNO WN PROVIDER Start: 06-29-2018 Iadna neisseria gono rrhoeae amplified probe tq UNKNOWN PROVIDER Start: 06-29-2018 Smr prim src wet dewey nt nfct agt UNKNOWN PROVIDER Start: 06-29-2018 Urine test visual color cmprsn meths UNKNOWN PROVIDER Start: 06-29-2018 Urnls dip stick/tabl et rgnt auto w/o microscopy UNKNOWN PROVIDER Plan of Treatment Date Care Activity Detail Author Start: 2072 RSV Immunization for Adults (1 - 1-dose 75+ series) RSV Immunization for Adults (1 - 1-dose 75+ series) [facility] Start: 2057 RSV Immunization age d 60 or older (1 - 1-dose 60+ series) RSV Immunization aged 60 or older (1 - 1-dose 60+ series) [facility] Start: 10-21-2047 Zoster Vaccines (1 of 2) Zoster Vacc david (1 of 2) [facility] Start: 08-02-2027 Screening for malign ant neoplasm of cervix [facility] Start: 01-18-2025 RSV Vaccine (1 - Ris k 1-dose series) RSV Vaccine (1 - Risk 1-dose series) [facility] Start: 12-29-2024 End: 03-30-2025 ANEMIA REFLEX PANEL ANEMIA REFLEX PANEL Lab Routine 24 weeks gestation of (HCC) Encounter for supervision of high risk in second trimester, antepartum (HCC) Expected: 12/29/2024 (Approximate), Expires: 03/30/2025 [facility] Comment on above: Expected: 12/29/2024 (Approximate), Expires: 03/30/2025 Start: 12-29-2024 End: 11-28-2025 GESTATIONAL GLUCOSE SCREEN, 1-HOUR, 50 GRAM, NON-FASTING GESTATIONAL GLUCOSE SCREEN, 1-HOUR, 50 GRAM, NON-FASTING Lab Routine Screening for diabetes mellitus Expected: 12/29/2024 (Approximate), Expires: 11/28/2025 [facility] Work Phone: Comment on above: Expected: 12/29/2024 (Approximate), Expires: 11/28/2025 Start: 12-29-2024 End: 11-28-2025 SYPHILIS TREPONEMAL W/REFLEX SYPHILIS TREPONEMAL W/REFLEX Lab Routine 24 weeks gestation of (HCC) Encounter for supervision of high risk in second trimester, antepartum (HCC) Expected: 12/29/2024 (Approximate), Expires: 11/28/2025 [facility] Comment on above: Expected: 12/29/2024 (Approximate), Expires: 11/28/2025 Start: 12-29-2024 End: 03-30-2025 TYPE + SCREEN TYPE + SCREEN Blood Bank Routine 24 weeks gestation of (HCC) Encounter for supervision of high risk in second trimester, antepartum (HCC) Expected: 12/29/2024 (Approximate), Expires: 03/30/2025 [facility] Comment on above: Expected: 12/29/2024 (Approximate), Expires: 03/30/2025 Start: 12-27-2024 End: 12-27-2024 Patient encounter procedure 12/27/2024 1:40 PM EDT Routine Office Visit OB/Gynecology [address] [place] [id number] Klarissa Rain MD [address] [place] [address] OB OB/Gynecology Comment on above: OB Start: 12-27-2024 End: 12-27-2024 ambulatory 12/27/2024 1:30 PM EDT Results Only [place] [facility] [address] [place] [address] Glucose lab [facility] Comment on above: Glucose lab Start: 12-09-2024 COVID-19 Vaccine ( season) COVID-19 Vaccine ( season) [facility] Start: 12-09-2024 Influenza vaccination C [facility] Start: 11-28-2024 End: 11-28-2024 Patient encounter procedure 11/28/2024 2:30 PM EDT Routine Office Visit OB/Gynecology [address] [place], [place] [id number] Octavia Herzog MD [address] [place] [address] OB OB/Gynecology Comment on above: OB Start: 10-31-2024 End: 10-31-2024 Patient encounter procedure Maternal Medicine Comment on above: Anatomy Scan OB Routine Start: 2024 HPV Vaccine (1 - 3-d ose SCDM series) HPV Vaccine (1 - 3-dose SCDM series) [facility] Start: 2024 HPV Vaccines (1 - 3- dose standard series) HPV Vaccines (1 - 3-dose standard series) [facility] Start: 10-03-2024 End: 10-03-2024 Patient encounter procedure 10/03/2024 10:10 AM EDT Routine Office Visit OB/Gynecology [address] [place], [place] [address] Octavia Herzog MD [address] [place], [place] [id number] OB Routine OB/Gynecology Comment on above: OB Routine Start: 09-11-2024 End: 12-11-2024 Chromosome 21 trisomy [Presence] in Blood or Tissue by Cytogenetics [facility] Work Phone: Comment on above: Expected: 09/11/2024 , Expires: 12/11/2024 Start: 09-11-2024 End: 09-11-2024 Patient encounter procedure Maternal Medicine Comment on above: Nuchal Nuchal/ no provider available after US,pt was rescheduled due to cristobal not available on 09/05/OB Routine Start: 09-05-2024 End: 09-05-2024 Patient encounter procedure Maternal Medicine Comment on above: Nuchal OB Routine OB - ER f/u - pelvic pressure (see phone note) Start: 08-30-2024 End: 08-30-2024 Patient encounter procedure 08/30/2024 10:20 AM EDT Routine Office Visit OB/Gynecology [address] [place] [address] Marco East MD [address] [place] [address] 1st OB - LMP 06/08/24 OB/Gynecology Comment on above: 1st OB - LMP 06/08/24 Start: 08-22-2024 End: 08-22-2024 Patient encounter procedure 08/22/2024 8:45 AM EDT Routine Office Visit OB/Gynecology [address] [place] [address] Freda Santillan, SPECIAL SERVICES COORDINATOR.MED DIR [address] [place] [address] Early OB - spotting, cramping - see phone note OB/Gynecology Comment on above: Early OB - spotting, cramping - see phone note Start: 08-09-2024 PAP TESTING PAP TESTING [facility] Start: 08-09-2024 Screening for malign ant neoplasm of cervix [facility] Start: 08-01-2024 End: 08-01-2024 Patient encounter procedure 08/01/2024 1:45 PM EDT Initial Office Visit OB/Gynecology [address] [place] [address] Freda Santillan APRN.MED DIR [address] [place] [address] 1st OB - LMP 06/08/24 OB/Gynecology Comment on above: 1st OB - LMP 06/08/24 Start: 07-25-2024 End: 07-25-2024 Patient encounter procedure 07/25/2024 10:40 AM EDT Office Visit OB/Gynecology [address] [place] [address] Marco East MD [address] [place] [address] Early OB bleeding f/u OB/Gynecology Comment on above: Early OB bleeding f/ u Start: 07-25-2024 End: 07-25-2024 ambulatory 07/25/2024 10:00 AM EDT Procedure OB/Gynecology [address] [place] [address] Remote, Pump Attendant Wstr Mob Us [address] [place] [address] Bleeding in early OB/Gynecology Comment on above: Bleeding in early pr egnancy Start: 07-15-2024 [facility] Start: 07-15-2024 [facility] Start: 07-15-2024 End: 10-14-2024 Choriogonadotropin.beta subunit [Units/volume] in Serum or Plasma HCG QUANTITATIVE Lab Routine Pelvic pain in (HCC) Bleeding in early (HCC) Expected: 07/15/2024, Expires: 10/14/2024 [facility] Comment on above: Expected: 07/15/2024 , Expires: 10/14/2024 Start: 07-15-2024 End: 07-15-2025 US Pelvis PELVIC US [facility] Routine Pelvic pain in (HCC) Expected: 07/15/2024, Expires: 07/15/2025 [facility] Work Phone: Comment on above: Expected: 07/15/2024 , Expires: 07/15/2025 Start: 05-28-2024 End: 05-28-2024 Patient encounter procedure 05/28/2024 9:20 AM EST Office Visit [facility] [address] [place], [place] [id number] Elisabet [place], SPECIAL SERVICES COORDINATOR.[facility] [address] [place] [address] 4 WK F/U Lightheadedness [facility] Comment on above: 4 WK F/U Lightheaded ness Start: 12-10-2023 Covid-19 Vaccine ( season) Covid-19 Vaccine ( season) [facility] Start: 12-10-2023 Influenza vaccination C [facility] Start: 08-11-2023 End: 08-11-2023 Patient encounter procedure 08/11/2023 8:40 AM EDT Office Visit [facility] [address] [place] [address] Elisabet [place], SPECIAL SERVICES COORDINATOR.MED DIR [address], [place] [id number] 4-6 WK F/U Abdominal Pain [facility] Comment on above: 4-6 WK F/U Abdominal Pain Start: 06-30-2023 End: 06-30-2023 Patient encounter procedure 06/30/2023 10:00 AM EDT Office Visit [facility] [address] [place] [phone] Malia Valles MD [address] [place] [address] [facility] Start: 04-10-2023 Behavioral Health Screening Behavioral Health Screening [facility] Start: 04-10-2023 Depression Assessment Depression Ass essment [facility] Start: 01-13-2023 End: 01-13-2023 Patient encounter procedure 01/13/2023 8:30 AM EDT Office Visit [facility] [address] [place] [phone] Malia Valles MD [address] [place] [address] [facility] Start: 12-09-2022 COVID-19 Vaccine ( season) COVID-19 Vaccine () [facility] Start: 12-09-2022 Influenza vaccination S [facility] Start: 12-02-2022 End: 12-02-2022 Patient encounter procedure 12/02/2022 9:30 AM EDT Office Visit [facility] [address] [place] [address] [facility] Start: 11-15-2022 End: 11-15-2022 Patient encounter procedure 11/15/2022 8:30 AM EDT Office Visit [facility] [address] [place] [address] Malia Valles MD [address] [place], [place] [id number] [facility] Start: 11-08-2022 End: 11-08-2022 Professional / ancillary services management 11/08/2022 8:00 AM EDT Ancillary Procedure [facility] [address] [place] [address] [facility] Start: 10-25-2022 End: 10-26-2023 US Pelvis transvaginal US pelvis transvaginal Imaging Routine Pelvic pain in female Expected: 10/25/2022, Expires: 10/26/2023 [facility] Work Phone: Comment on above: Expected: 10/25/2022 , Expires: 10/26/2023 Start: 08-09-2022 Adult depression screening assessment DEPRESSION SCREENING [facility] Start: 07-12-2022 Adult depression screening assessment DEPRESSION SCREENING [facility] Start: 07-12-2022 CHLAMYDIA SCREENING (18-24) CHLAMYDIA SCREENING (18-24) [facility] Start: 07-12-2022 COVID-19 VACCINE (#1) COVID-19 VACCI NE (#1) [facility] Comment on above: Postponed from 10/20 (Declined at this time) Start: 07-12-2022 COVID-19 VACCINE (1) COVID-19 VACCIN E (1) [facility] Comment on above: Postponed from 10/20 (Declined at this time) Start: 07-12-2022 GC (GONORRHEA) SCREE ABHI (18-24) GC (GONORRHEA) SCREENING (18-24) [facility] Start: 04-10-2022 DEPRESSION ASSESSMENT DEPRESSION ASS ESSMENT [facility] Start: 12-09-2021 Influenza vaccination INFLUENZA (Sea son Ended) [facility] Start: 08-09-2021 End: 10-09-2021 CBC W Auto Differential panel - Blood CBC + DIFF Lab Routine Leukocytosis, unspecified type Expected: 08/09/2021, Expires: 10/09/2021 [facility] Work Phone: Comment on above: Expected: 08/09/2021 , Expires: 10/09/2021 Start: 07-12-2021 End: 09-11-2021 Hemoglobin A1c/Hemoglobin.total in Blood [facility] Work Phone: Comment on above: Expected: 07/12/2021 , Expires: 09/11/2021 Start: 07-12-2021 End: 09-11-2021 Hepatitis C virus Ab [Presence] in Serum [facility] Work Phone: Comment on above: Expected: 07/12/2021 , Expires: 09/11/2021 Start: 07-12-2021 End: 09-11-2021 HIV 1+2 Ab [Presence] in Serum or Plasma by Immunoassay [facility] Work Phone: Comment on above: Expected: 07/12/2021 , Expires: 09/11/2021 Start: 11-15-2020 PAP TESTING PAP TESTING [facility] Start: 04-15-2020 CHLAMYDIA SCREENING (18-24) CHLAMYDIA SCREENING (18-24) [facility] Start: 04-15-2020 GC (GONORRHEA) SCREE ABHI (18-24) GC (GONORRHEA) SCREENING (18-24) [facility] Start: 10-24-2019 DTaP/Tdap/Td Vaccine s (7 - Td or Tdap) DTaP/Tdap/Td Vaccines (7 - Td or Tdap) [facility] Start: 10-24-2019 Urine microalbumin profile [facility] Start: 2018 Screening for malign ant neoplasm of cervix [facility] Start: 2016 Pneumococcal Vaccine : Pediatrics (0 to 5 Years) and At-Risk Patients (6 to 49 Years) (1 of 2 - PCV) Pneumococcal Vaccine: Pediatrics (0 to 5 Years) and At-Risk Patients (6 to 49 Years) (1 of 2 - PCV) [facility] Start: 10-21-2015 Anxiety Screening Anxiety Screening [facility] Start: 10-21-2015 Depression Screening Depression Scre ening [facility] Start: 10-21-2015 HEPATITIS C SCREENING HEPATITIS C [facility] Start: 10-21-2015 Hepatitis C screening Hepatitis C [facility] Start: 10-21-2015 HIV SCREENING HIV SCREENING [facility] Start: 2013 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 (1 of 2 - Patient Seeks Protection) MENINGOCOCCAL B: Consider based on risk (1 of 2 - Patient Seeks Protection) [facility] Start: 2012 HPV Vaccine (1 - 3-d ose series) HPV Vaccine (1 - 3-dose series) [facility] Start: 2012 HPV Vaccines (1 - 3- dose series) HPV Vaccines (1 - 3-dose series) [facility] Start: 10-21-2011 PEDS TO ADULT TRANSI TION ANNUAL ASSESSMENT PEDS TO ADULT TRANSITION ANNUAL ASSESSMENT [facility] Start: 2009 Depression Screening Depression Scre ening [facility] Start: 2009 PEDS TO ADULT TRANSI TION INITIAL DISCUSSION PEDS TO ADULT TRANSITION INITIAL DISCUSSION [facility] Start: 2008 HPV VACCINE (1 - 2-d ose series) HPV VACCINE (1 - 2-dose series) [facility] Start: 2008 HPV Vaccines (1 - 2- dose series) HPV Vaccines (1 - 2-dose series) [facility] Start: 10-21-2007 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 (1 of 2 - Risk Bexsero 2-dose series) MENINGOCOCCAL B: Consider based on risk (1 of 2 - Risk Bexsero 2-dose series) [facility] Start: 2006 HPV VACCINE (1 - 2-d ose series) HPV VACCINE (1 - 2-dose series) [facility] Start: 10-21-2003 PNEUMOCOCCAL (1 - PCV) PNEUMOCOCCAL (1 - PCV) [facility] Start: 10-21-2003 Pneumococcal Vaccine : Pediatrics (0 to 5 Years) and At-Risk Patients (6 to 64 Years) (1 - PCV) Pneumococcal Vaccine: Pediatrics (0 to 5 Years) and At-Risk Patients (6 to 64 Years) (1 - PCV) [facility] Start: 10-21-2003 Pneumococcal Vaccine : Pediatrics (0 to 5 Years) and At-Risk Patients (6 to 64 Years) (1 of 2 - PCV) Pneumococcal Vaccine: Pediatrics (0 to 5 Years) and At-Risk Patients (6 to 64 Years) (1 of 2 - PCV) [facility] Start: 12-16-2002 Varicella vaccination Varicell a Vaccines (2 of 2 - 2-dose childhood series) [facility] Start: 04-22-1998 COVID-19 Vaccine (#1) COVID-19 Vacci ne (#1) [facility] Start: 1997 HIV screening HIV Screening [facility] Start: 1997 Lipid panel Lipid Panel [facility] Start: 1997 Yearly Adult Physical Yearly Adult P [facility] Bacteria identified in Urine by Culture BACTERIAL CULTURE, URINE Microbiology Routine Cramping affecting , antepartum (HCC) Vaginal spotting 12 weeks gestation of ([facility]) Encounter for supervision of high risk in first trimester, antepartum ([facility]) 09/05/2024 2:55 PM EDT [facility] Work Phone: BACTERIAL VAGINOSIS NAAT BACTERI AL VAGINOSIS NAAT Lab Routine Vaginal discharge 08/22/2024 9:08 AM EDT [facility] Work Phone: BACTERIAL VAGINOSIS NAAT BACTERI AL VAGINOSIS NAAT Lab Routine Vaginal discharge 11/28/2024 3:19 PM EDT [facility] YOUSUF/TRICHOMONAS NAAT YOUSUF /TRICHOMONAS NAAT Lab Routine Vaginal discharge 08/22/2024 9:08 AM EDT [facility] YOUSUF/TRICHOMONAS NAAT YOUSUF /TRICHOMONAS NAAT Lab Routine Vaginal discharge 11/28/2024 3:19 PM EDT [facility] Chlamydia trachomatis+Neisseria gonorrhoeae DNA [Presence] in Urine by JOSEFA with probe detection GC/CHLAMYDIA AMPLIF, URINE Microbiology Routine Screening for STD (sexually transmitted disease) 07/12/2021 9:47 AM EDT [facility] Work Phone: COVID & INFLUENZA A/ B & RSV PCR, ROUTINE COVID & INFLUENZA A/B & RSV PCR, ROUTINE Microbiology Routine Sore throat 08/15/2024 3:23 PM EDT [facility] Work Phone: FUNGAL SMEAR FUNGAL SMEAR Microbiology Routine Vaginal discharge Bacterial vaginosis 08/09/2021 9:45 AM EDT [facility] Work Phone: PAP FLUID CERVICAL SCREENING PAP FLUID CERVICAL SCREENING Lab Routine Screening for cervical cancer Ordered: 08/09/2021 [facility] Work Phone: Comment on above: Ordered: 08/09/2021 Patient Education What Is Care? [facility] Work Phone: Patient referral [facility] Work Phone: SURESWAB(R) ADVANCED VAGINITIS PLUS, TMA ([facility]) Sureswab(R) Advanced Vaginitis Plus, TMA ([facility]) Lab Routine Pelvic pain in female Vaginal discharge Ordered: 10/25/2022 [facility] [employer] Comment on above: Ordered: 10/25/2022 T VAGINALIS AMPLIFICATION T VAGI NALIS AMPLIFICATION Lab Routine Screening for STD (sexually transmitted disease) 07/12/2021 9:47 AM EDT [facility] Work Phone: UA DIP B/O UA DIP B/O Lab R outine Proteinuria, unspecified type Glucose found in urine on examination Ordered: 08/11/2023 [facility] Work Phone: Comment on above: Ordered: 08/11/2023 UA DIP, URINE (POC) UA DIP, URIN E (POC) Lab Routine Right lower quadrant abdominal pain Dyspareunia in female Ordered: 07/10/2023 [facility] Work Phone: Comment on above: Ordered: 07/10/2023 Urine test visual color cmprsn meths HCG QUAL UR B/O Lab Routine Right lower quadrant abdominal pain Dyspareunia in female Ordered: 07/10/2023 [facility] Work Phone: Comment on above: Ordered: 07/10/2023 [facility] Immunizations Immunization Date Immunization Notes Care Provider Hanane faust 01-29-2016 influenza, seasonal, injectable Elisabet Queden SPECIAL SERVICES COORDINATOR.MED DIR Work Phone: [facility] 01-29-2016 influenza virus vacc ine, unspecified formulation Malia Valles MD Work Phone: [facility] 04-21-2015 tuberculin skin test ; purified protein derivative solution, intradermal Carolynn Sheets DO Work Phone: [facility] 04-07-2015 tuberculin skin test ; purified protein derivative solution, intradermal Carolynn Sheets DO Work Phone: [facility] 12-30-2014 influenza, injectabl e, quadrivalent, contains preservative Elisabet Queden SPECIAL SERVICES COORDINATOR.MED DIR Work Phone: [facility] 12-30-2014 meningococcal polysaccharide (groups A, C, Y and W-135) diphtheria toxoid conjugate vaccine (MCV4P) Elisabet Queden SPECIAL SERVICES COORDINATOR.MED DIR Work Phone: [facility] 10-23-2009 meningococcal polysaccharide (groups A, C, Y and W-135) diphtheria toxoid conjugate vaccine (MCV4P) Elisabet Queden SPECIAL SERVICES COORDINATOR.MED DIR Work Phone: [facility] 10-23-2009 tetanus toxoid, redu garland diphtheria toxoid, and acellular pertussis vaccine, adsorbed Elisabet Queden SPECIAL SERVICES COORDINATOR.MED DIR Work Phone: [facility] 11-18-2002 diphtheria, tetanus toxoids and acellular pertussis vaccine, 5 pertussis antigens Elisabet Queden SPECIAL SERVICES COORDINATOR.MED DIR Work Phone: [facility] 11-18-2002 measles, mumps and rubella virus vaccine Elisabet Queden SPECIAL SERVICES COORDINATOR.MED DIR Work Phone: [facility] 11-18-2002 poliovirus vaccine, inactivated Elisabet Queden SPECIAL SERVICES COORDINATOR.MED DIR Work Phone: [facility] 04-06-1999 diphtheria, tetanus toxoids and acellular pertussis vaccine, 5 pertussis antigens Elisabet Queden SPECIAL SERVICES COORDINATOR.MED DIR Work Phone: [facility] 04-06-1999 haemophilus influenz ae type b vaccine, HbOC conjugate Elisabet Queden SPECIAL SERVICES COORDINATOR.MED DIR Work Phone: [facility] 04-06-1999 measles, mumps and rubella virus vaccine Elisabet Queden SPECIAL SERVICES COORDINATOR.MED DIR Work Phone: [facility] 04-06-1999 varicella virus vaccine Brit tny Queden SPECIAL SERVICES COORDINATOR.MED DIR Work Phone: [facility] 12-24-1998 haemophilus influenz ae type b vaccine, HbOC conjugate Elisabet Queden SPECIAL SERVICES COORDINATOR.MED DIR Work Phone: [facility] 09-28-1998 hepatitis B vaccine, pediatric or pediatric/adolescent dosage Elisabet Queden SPECIAL SERVICES COORDINATOR.MED DIR Work Phone: [facility] 09-28-1998 poliovirus vaccine, inactivated Elisabet Queden SPECIAL SERVICES COORDINATOR.MED DIR Work Phone: [facility] 05-14-1998 diphtheria, tetanus toxoids and acellular pertussis vaccine, 5 pertussis antigens Elisabet Queden SPECIAL SERVICES COORDINATOR.MED DIR Work Phone: [facility] 05-14-1998 haemophilus influenz ae type b vaccine, HbOC conjugate Elisabet Queden SPECIAL SERVICES COORDINATOR.MED DIR Work Phone: [facility] 03-05-1998 diphtheria, tetanus toxoids and acellular pertussis vaccine, 5 pertussis antigens Elisabet Queden SPECIAL SERVICES COORDINATOR.MED DIR Work Phone: [facility] 03-05-1998 haemophilus influenz ae type b vaccine, HbOC conjugate Elisabet Queden SPECIAL SERVICES COORDINATOR.MED DIR Work Phone: [facility] 03-04-1998 poliovirus vaccine, inactivated Elisabet Queden SPECIAL SERVICES COORDINATOR.MED DIR Work Phone: [facility] 1997 diphtheria, tetanus toxoids and acellular pertussis vaccine, 5 pertussis antigens Elisabet Queden SPECIAL SERVICES COORDINATOR.MED DIR Work Phone: [facility] 1997 hepatitis B vaccine, pediatric or pediatric/adolescent dosage Elisabet Queden SPECIAL SERVICES COORDINATOR.MED DIR Work Phone: [facility] 1997 poliovirus vaccine, inactivated Elisabet Queden SPECIAL SERVICES COORDINATOR.MED DIR Work Phone: [facility] 1997 hepatitis B vaccine, pediatric or pediatric/adolescent dosage Elisabet Queden SPECIAL SERVICES COORDINATOR.MED DIR Work Phone: [facility] Payers Date Payer Category Payer Medicaid [facility] [employer] [employer] [id number] 2024 Medicaid (Managed Care) [facility] [id number] 2024 Unknown [id number] 2024 Self-pay [id number] 2022 Commercial Managed C are - HMO MMO LOCAL [address] [facility] [id number] 2022 Private Health Insurance [id number] 2022 Unknown [id number] 2019 Unknown [employer] BLUE CARD PPO OOS [id number] 2019-Present [phone] [address] [place] [address] PPO [id number] 2019 Unknown [id number] 2019 Unknown [id number] 2018 Blue [employer] Blue Shield [id number] 1997 Unknown [id number] Unknown SELF [facility] DMITRY DAVIDSON [id number] Unknown [id number] Unknown [id number] Social History Date Type Detail Facility Start: 06-25-2019 End: 07-15-2024 Tobacco smoking status SCIS Smokes tobacco daily [facility] History of tobacco use Cigarette Smoker C [facility] Start: 06-25-2019 End: 12-23-2024 Cigarettes smoked current (pack per day) - Reported 1 [facility] Start: 06-25-2019 End: 08-01-2024 Tobacco use and exposure Smokeless tobacco non-user [facility] Start: 07-12-2021 End: 11-28-2024 Alcohol intake Current non-drinker of alcohol (finding) [facility] Start: 1997 Sex Assigned At Not on file [facility] Start: 07-02-2021 End: 12-02-2022 Exposure to SARS-CoV-2 (event) Not sure [facility] Start: 10-25-2022 End: 06-12-2024 Alcohol intake Current drinker of alcohol (finding) [facility] Start: 10-25-2022 End: 12-23-2024 Humiliation, Afraid, Rape, and Kick questionnaire [HARK] [facility] Within the last year , have you been afraid of your partner or ex-partner? No [facility] Start: 03-11-2012 End: 12-23-2024 Frequency of Alcohol Consumption Not on file [facility] How often do you hav e 6 or more drinks on 1 occasion? Never [facility] How hard is it for y ou to pay for the very basics like food, housing, medical care, and heating Not very hard [facility] Do you feel stress - tense, restless, nervous, or anxious, or unable to sleep at night because your mind is troubled all the time - these days [OSQ] Not at all [facility] (I/We) worried wheth er (my/our) food would run out before (I/we) got money to buy more. Never true [facility] Start: 12-06-2022 Tobacco smoking status SCIS Unknown if ever smoked [facility] Start: 1995 Sex Assigned At Female [facility] Start: 03-30-2023 End: 09-15-2025 Tobacco smoking status NHIS Ex-smoker [facility] History of tobacco use Current smoker [facility] Start: 11-08-2021 End: 07-15-2024 Sex Female (finding) [facility] Start: 06-22-2024 [facility] Start: 07-31-2024 Gender identity Identifies as female gender (finding) [facility] Start: 07-31-2024 Sexual orientation Heterosexual (finding) [facility] Start: 12-23-2024 Tobacco use and exposure User of smokeless tobacco [facility] Work Phone: Start: 12-23-2024 End: 01-01-2025 Alcoholic beverage intake Ex-drinker (finding) [facility] Work Phone: Goals Date Patient Goal Desired Activity /State Personal health goal Functional Status Date Assessment Result Facility 01-01-2025 Functional status 106/ 025 8:16 AM EDT Brooklyn Pool MA [facility] Work Phone: 01-01-2025 Vital signs 84 01/01/2025 8: 16 AM EDT Brooklyn Pool MA [facility] Work Phone: 12-23-2024 Patient Health [facility] ionnaire 2 item (PHQ-2) [Reported] [facility] Work Phone: 07-21-2014 Are you deaf, or do you have serious difficulty hearing No 07/21/2014 3:47 PM EDT Senati Johns LPN No [facility] 07-21-2014 Are you blind, or do you have serious difficulty seeing, even when wearing glasses No 07/21/2014 3:47 PM EDT Senait Johns LPN No [facility] 07-21-2014 Do you have serious difficulty walking or climbing stairs No 07/21/2014 3:47 PM EDT Senait Johns LPN No [facility] 07-21-2014 Do you have difficul ty dressing or bathing No 07/21/2014 3:47 PM EDT Senait Johns LPN No [facility] 07-21-2014 Because of a physica l, mental, or emotional condition, do you have difficulty doing errands alone such as visiting a physician's office or shopping No 07/21/2014 3:47 PM EDT Senait Johns LPN No [facility] Mental Status Date Assessment Result Facility 07-21-2014 Because of a physica l, mental, or emotional condition, do you have serious difficulty concentrating, remembering, or making decisions No 07/21/2014 3:47 PM EDT Senait Johns LPN No [facility] Clinical Notes 07-12-2021 to 01-24-2025 Yosvany Ramey PA-C - 01/01/2025 8:20 AM EDTPatient Lilliam Garcia MD - 12/23/2024 2:10 PM EDTPatient Jyotsna Cardenas MD - 12/04/2024 10:54 AM EDT Note Date & Type Note Facility 01-24-2025 Note HNO ID: [id number] Author: FREDA MENDOZA DO Service: Obstetrics Author Type: Resident Type: Plan of Care Filed: 01/24/2025 19:57 Note Text: Prior to discharge, the following Plan of care discussed with: Provider, RN, Patient. Wet prep positive for yeast buds, will send diflucan 150mg to pharmacy on file. [facility] labs without evidence of preeclampsia. Isolated mild range blood pressure, all other BP normal. Patient is ready for discharge home. Discharge Vital signs: .BP 122/91 Pulse 106 Temp 36.6 ?C (97.9 ?F) (Temporal) Resp 16 Ht 162.6 cm (5' 4) Wt 85.7 kg (189 lb) LMP 06/08/2024 (Approximate) SpO2 98% BMI 32.44 kg/m? Lab Results: CBC: Recent Labs 01/24/25 1852 WBC 10.41 RBC 3.18* HB 10.7* HCT 30.4* PLT 210 MCV 95.6 MCH 33.6 MPV 10.7 CMP: Recent Labs 01/24/25 1852 NA 137 K 3.6* CHLOR 105 CO2 23 BUN 9 CREAT 0.55* GLUC 107* TPROT 6.5 CA 8.4* TBILI 0.4 ALKPHOS 107 ALT 10 AST 15 ANION 9 UPC: 0.12 Follow-up: Appointments for Next 60 Days Date Time Provider Location Dept Phone 02/03/2025 9:40 AM JYOTSNA SINGER [phone] Precautions: preE s/s, DFM, PROM, PTL New or adjusted home medications: diflucan 150mg once Other recommendations/instructions: none Freda Mendoza DO 7:57 PM [facility] 01-24-2025 Note HNO ID: [id number] Author: ARNOLDO HEREDIA MD Service: Obstetrics Author Type: Resident Type: Progress Notes Filed: 01/24/2025 20:25 Note Text: Attestation signed by Arnoldo Heredia MD at 01/24/2025 8:25 PM Attending Note I evaluated the patient and personally participated in the olson components. I agree with the resident's findings and plan as documented and have discussed the case and management of the patient's care with the resident. Plan of care discussed with: Provider, RN, Patient. Signature: Arnoldo Heredia MD Date: January 24, 2025 Time: 8:25 PM OBSTETRICS OB ED PROGRESS NOTE SERVICE DATE: January 24, 2025 SERVICE TIME: 7:18 PM Subjective Patient's stated reason for arrival: vision changes, blood pressure, dec fm CHIEF COMPLAINT: vision changes, decreased movement, vaginal discharge HISTORY OF THE PRESENT ILLNESS: The patient is a 29 year old female, , who is at 32w6d with an TORRI of 03/15/2025, by Last Menstrual Period dating method. Patient is here complaining of vision changes, decreased movement and vaginal discharge. Patient reports intermittent black floaters in her vision for the past few weeks. She states over the past few days, they have become more frequent. Denies associated headache, CP, Shortness of Breath, RUQ pain at this time. She has been evaluated for these visual changes at her routine OB appts with low suspicion for preE. Baseline preE labs on 01/10 within normal limits. She denies history of CHTN. Patient additionally notes decreased movement today. The last normal movement she felt was around 1130. 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 She did not perform formal kick counts. Upon arrival to the OB ED, she reports feeling more movement, which has provided reassurance. Additionally notes some yellowish-white thick vaginal discharge over the past few days with associated mild vaginal itching. She denies vaginal irritation, dysuria, hematuria, frequency, urgency. Denies vaginal bleeding, contractions, leaking of fluid. PAST MEDICAL HISTORY Diagnosis Date Anxiety Asthma (HCC) childhood Bronchitis Depression Personality disorder (HCC) PAST SURGICAL HISTORY Procedure Laterality Date NONE FAMILY HISTORY Problem Relation Age of Onset No Known Problems Mother No Known Problems Father Diabetes Maternal Grandmother Ovarian cancer Paternal Grandmother No Known Problems Half-brother No Known Problems Half-sister No Known Problems Half-sister No Known Problems Half-sister No Known Problems Half-sister Diabetes Other OB History Gravida1 Para0 Term0 Preterm0 AB0 Living0 SAB0 IAB0 Ectopic0 Multiple0 Live Births0 REVIEW OF SYSTEMS: The remainder of the review of systems is negative. Objective LAST VITALS: Pulse: 106 BP: 115/77 Resp: 16 Temp: 36.6 ?C (97.9 ?F) SpO2: 98 % Height: 162.6 cm (5' 4) Weight: 85.7 kg (189 lb) BMI: 32.44 SENSITIVE EXAMINATION CONSENT: Participation of a fellow, resident, medical student, or advanced practice provider student in performing the sensitive examination was discussed with the patient or authorized loan representative. The patient or authorized loan representative has agreed to proceed with the sensitive examination. PHYSICAL EXAM: General: WD, WN, NAD, comfortable Heart: RR, S1, S2 Lungs: clear to auscultation Abdomen: soft, nontender, gravid Uterus: soft, NT Extremities: no edema SSE: normal appearing external genitalia, vaginal mucosa, external os; no active bleeding or blood in the vaginal vault; thick yellow-white discharge present in the posterior vaginal vault; wet prep performed with yeast buds present; no trichomonads or clue cells present MONITORING/ASSESSMENT: Baseline: 130 bpm Variability: moderate Accelerations: present Decelerations: none Tocometer: uterine irritability Reactive NST LABS Diagnostic tests reviewed for today's visit: Most recent labs and imaging results. 29 year old EGA:32w6d here for evaluation of vision changes, decreased movement and vaginal discharge Assessment AND Plan Elevated blood-pressure reading without diagnosis of hypertension - isolated mild range blood pressure in the OB ED, no other document elevated blood pressures this , no hx of CHTN - complains of vision changes, no other s/s of preE - other vitals WNL - cardiopulmonary exam WNL - reactive NST - uterine irritability on toco - baseline PIH labs from 01/10/2025 without evidence of preeclampsia - obtain repeat CBC, CMP, UPC Decreased movement (HCC) - decreased movement today, la (more content not included)... [facility] 01-24-2025 Note HNO ID: [id number] Author: ARNOLDO HEREDIA MD Service: Obstetrics Author Type: Registered Nurse Type: Procedures Filed: 01/24/2025 20:27 Note Text: Attestation signed by Arnoldo Heredia MD at 01/24/2025 8:27 PM PROVIDER INTERPRETATION: Category I SIGNATURE: Arnoldo Heredia MD DATE: January 24, 2025 TIME: 8:27 PM OBSTETRICS NST SUMMARY SERVICE DATE: January 24, 2025 The patient is a 29 year old female, , who is at 32w6d with an TORRI of 03/15/2025, by Last Menstrual Period dating method. NST OBJECTIVE FINDINGS PER NURSE: Start Time: 1814 (01/24/251834 : Caren Randolph RN) Complete Time: 1834 (01/24/251834 : Caren Randolph RN) Indications: Other: Comment (OB ED) (01/24/251834 : Caren Randolph, KATIE) Patient Reason For: monitor baby (01/24/251834 : Caren Randolph RN) NST Explanation: Procedure Explained, Monitor Explained, Verbalizes Understanding (01/24/251834 : Caren Randolph RN) Acoustic Stimulator: No (01/24/251834 : Caren Randolph RN) Interventions: MONITORING/ASSESSMENT: Baseline: 140 bpm (01/24/251834 : Caren Randolph RN) Variability: Moderate (6-25 bpm) (01/24/251834 : Caren Randolph RN) Accelerations: Present (01/24/251834 : Caren Randolph RN) Decelerations: Decelerations: None (01/24/251834 : Caren Randolph RN) Contractions: Not present (01/24/251834 : Caren Randolph RN) Frequency: Above information forwarded to Dr. Heredia (01/24/251834 : Caren Randolph RN) for final review and interpretation. SIGNATURE: Caren Randolph RN PATIENT NAME: Gabe Hubbard DATE: January 24, 2025 TIME: 6:38 PM [facility] 01-01-2025 History of Presen t illness Narrative Subjective Patient ID: Gabe Hubbard is a 29 y.o. female. They present today with a chief complaint of Illness. Patient disposition: Home HISTORY OF PRESENT ILLNESS: This is an otherwise healthy young adult female, currently 29 weeks , presenting for fatigue. She wants to make sure she did not catch an infection because there have been multiple sick people at work lately. Denies any respiratory symptoms. Denies any abdominal pain, vaginal bleeding, UTI symptoms. She just has been feeling tired and achy lately but is not sure if that is result of the . She is G1, P0. Past Medical History Allergies as of 01/01/2025 - Reviewed 12/23/2024 Allergen Reaction Noted Penicillins Swelling 12/23/2024 Prescriptions Prior to Admission[1] Medical History[2] Surgical History[3] reports that she has quit smoking. Her smoking use included cigarettes. She uses smokeless tobacco. She reports that she does not currently use alcohol. Review of Systems Negative except as documented in the History of Present Illness. Objective Vitals: 01/01/25 0816 BP: 106/71 Pulse: 84 Resp: 18 Temp: 36.6 C (97.9 F) SpO2: 98% Weight: 82.1 kg (181 lb) No LMP recorded. Patient is . PHYSICAL EXAMINATION: CONSTITUTIONAL: well-appearing, nontoxic, ambulatory ENT: Head and face are unremarkable and atraumatic. Mucous membranes moist. * Oropharynx [normal without erythema nor exudate]. Airway patent. * No uvular deviation. No visible abscess. * Lymphadenopathy [absent]. * [TMs normal BL.] [EACs normal BL.] LUNGS: [CTAB, no r/r/w. No increased WOB.] CARDIOVASCULAR: RRR, no m/r/g. Nl S1/S2. ABDOMEN: Gravid. Nontender including left upper quadrant, nondistended, no acute abdomen. MUSCULOSKELETAL: No obvious deformities. BIRCH with equal strength. Gait normal. SKIN: Warm and dry with no rashes. NEURO: Normal baseline mental status. PSYCH: Appropriate mood and affect. MDM: Rapid PCR testing all negative. Vital signs within normal limits and exam benign. Reassured patient fatigue is likely result of but instructed her to follow-up here or at the ED as needed if any worsening or new symptoms. Procedures Diagnostic study results (if any) were reviewed by Yosvany Ramey PA-C. No results found for this visit on 01/01/25. Assessment/Plan Allergies, medications, history, and pertinent labs/EKGs/Imaging reviewed by Yosvany Ramey PA-C. Orders and Diagnoses Diagnoses and all orders for this visit: Close exposure to COVID-19 virus - POCT SPOTFIRE R/ST Panel Mini w/COVID ([facility]) manually resulted Fatigue, unspecified type - POCT SPOTFIRE R/ST Panel Mini w/COVID ([facility]) manually resulted Medical Admin Record Follow Up Instructions No follow-ups on file. Electronically signed by Yosvany Ramey PA-C 8:25 AM [1] (Not in a hospital admission) [2] No past medical history on file. [3] No past surgical history on file. documented in this encounter [facility] Work Phone: 01-01-2025 Instructions Yosvany Ramey PA-C - 01/01/2025 8:20 AM EDT Use ZYRTEC and FLONASE as needed for congestion and ear symptoms. Follow-up here for any significant worsening or new symptoms, or at the ER if severe symptoms outside of business hours. documented in this encounter [facility] Work Phone: 12-27-2024 Note HNO ID: [id number] Author: PERFECTO SANCHES LPN Service: ? Author Type: Licensed Nurse Type: Progress Notes Filed: 12/27/2024 15:05 Note Text: Patient identified by name and date of . Jimfrancisco Xavier Haydee presents today for a vaccination of Tdap. Patient denies an allergy to latex: yes Patient denies a severe (life-threatening) allergy to a previous dose of Tdap, DTP, DTaP, DT or Td vaccine. Yes Patient denies history of epilepsy or neurological problems: Yes Patient is afebrile and denies being moderately or severely ill: Yes Patient denies history of Guillain-Sonoita Syndrome (a severe paralytic illness): Yes Tdap Adacel injection was given without incident. See immunizations for details of immunizations administered today. VIS sheet provided: Yes Provider Dr. Klarissa Rain was present in office at time of injection. Perfecto Sanches LPN Gabe Hubbard 29 year old is here for her injection of Rhophylac. Gabe Hubbard had a negative Antibody Screen on 12/27/2024. Her blood type is O-. Gabe Hubbard is Rhophylac Negative [facility] [id number], Lot [id number] Exp 2026 Rhophylac injection was given without incident. Provider Dr. Klarissa Rain was present in office at time of injection. Gabe Hubbard was given her Rhophylac pocket card. Patient denied having Rhophylac injection for current at hospital or another facility. Perfecto Sanches LPN [facility] 12-23-2024 History of Presen t illness Narrative Subjective Patient ID: Gabe Hubbard is a 29 y.o. female. They present today with a chief complaint of Numbness. History of Present Illness Patient reports that she slept on her left side awkwardly and woke up with left shoulder and lateral arm pain - characterizes as achey Denies chest pain, palpitations Denies nausea Denies LOF, vaginal bleeding Denies headache Denies hx of preeclampsia Notes that her is going well without any issues Denies hx of stroke Denies headache Denies neck injury Notes hx of CTS bilaterally Requests work note Past Medical History Allergies as of 12/23/2024 - Reviewed 12/23/2024 Allergen Reaction Noted Penicillins Swelling 12/23/2024 Prescriptions Prior to Admission[1] Medical History[2] Surgical History[3] reports that she has quit smoking. Her smoking use included cigarettes. She uses smokeless tobacco. She reports that she does not currently use alcohol. Objective Vitals: 12/23/24 1416 BP: 108/72 Pulse: 85 Resp: 20 Temp: 36.7 C (98 F) TempSrc: Oral SpO2: 98% Weight: 82.1 kg (181 lb) Height: 1.626 m (5' 4) No LMP recorded. Physical Exam Constitutional: General: She is not in acute distress. Appearance: Normal appearance. She is not ill-appearing or toxic-appearing. HENT: Nose: No rhinorrhea. Eyes: General: Right eye: No discharge. Left eye: No discharge. Extraocular Movements: Extraocular movements intact. Cardiovascular: Rate and Rhythm: Normal rate and regular rhythm. Pulmonary: Effort: No respiratory distress. Breath sounds: No stridor. No wheezing or rales. Musculoskeletal: General: No tenderness. Cervical back: No tenderness or bony tenderness. Thoracic back: No bony tenderness. Comments: No elbow tenderness to palpation Skin: Comments: Appears well perfused Neurological: General: No focal deficit present. Mental Status: She is alert. Cranial Nerves: No cranial nerve deficit. Motor: No weakness. Comments: Tinels negative LEFT SHOULDER Carmen No significant ttp along the lateral shoulder No apparent weakness with abduction Negative Neer's sign No ttp along the cervical spine Patellar reflexes intact bilaterally Psychiatric: Mood and Affect: Mood normal. Behavior: Behavior normal. Procedures Point of Care Test & Imaging Results from this visit: No results found for this or any previous visit. Diagnostic study results (if any) were reviewed by Mario Garcia MD. Assessment/Plan Allergies, medications, history, and pertinent labs/EKGs/Imaging reviewed by Mario Garcia MD. Medical Decision Making: Patient's symptoms are most consistent with MSK etiology such as shoulder strain from sleep positioning. Encourage supportive care measures. Discussed ER precautions. 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 Will provide a work note. Orders and Diagnoses Diagnoses and all orders for this visit: Left arm pain Patient disposition: Home Medical Admin Record Follow Up Instructions No follow-ups on file. Electronically signed by Mario Garcia MD 1:22 PM [1] (Not in a hospital admission) [2] No past medical history on file. [3] No past surgical history on file. documented in this encounter [facility] Work Phone: 12-23-2024 Instructions Mario Garcia MD - 12/23/2024 2:10 PM EDT ER if your symptoms worsen (ex: worsening arm pain, chest pain, worsening shortness of breath) documented in this encounter [facility] Work Phone: 12-04-2024 Note HNO ID: [id number] Author: JYOTSNA SINGER MD Service: ? Author Type: Physician Type: Progress Notes Filed: 12/04/2024 10:55 Note Text: NST SUMMARY PROVIDER ASSESSMENT AND INTERPRETATION Gabe Hubbard is a 29 year old female, , who is at 25w4d with an TORRI of 03/15/2025, by Last Menstrual Period dating method. Indications for NST: Decreased Movement Baseline: 140 Variability: Moderate Accelerations: Present 10 X 10 Decelerations: None Contractions: TOCO: None Interpretation: Category I and Reactive SIGNATURE: Jyotsna Dorsey MD [facility] 12-04-2024 History of Presen t illness Narrative NST SUMMARY PROVIDER ASSESSMENT AND INTERPRETATION Gabe Hubbard is a 29 year old female, , who is at 25w4d with an TORRI of 03/15/2025, by Last Menstrual Period dating method. Indications for NST: Decreased Movement Baseline: 140 Variability: Moderate Accelerations: Present 10 X 10 Decelerations: None Contractions: TOCO: None Interpretation: Category I and Reactive SIGNATURE: Jyotsna Dorsey MD DM-Pt seen urgently- reports decreased FM. Denies vaginal Bleeding, Leaking fluid, or regular Contractions. Pt reports good movement Physical Exam: Gen: female in no apparent distress Abd: soft, Gravid. Non tender to palpation. See flow sheet @ 25.4 weeks Assessment & Plan Encounter for supervision of high risk in second trimester, antepartum (HCC) Decreased movements in second trimester, single or unspecified fetus (HCC) Reassurance given NST- reactive cat 1 Kick counts reviewed with patient 25 weeks gestation of (HCC) RTO as scheduled Jyotsna Dorsey MD documented in this encounter [facility] 12-04-2024 Note HNO ID: [id number] Author: JYOTSNA SINGER MD Service: ? Author Type: Physician Type: Progress Notes Filed: 12/04/2024 10:55 Note Text: DM-Pt seen urgently- reports decreased FM. Denies vaginal Bleeding, Leaking fluid, or regular Contractions. Pt reports good movement Physical Exam: Gen: female in no apparent distress Abd: soft, Gravid. Non tender to palpation. See flow sheet @ 25.4 weeks Assessment AND Plan Encounter for supervision of high risk in second trimester, antepartum (HCC) Decreased movements in second trimester, single or unspecified fetus (HCC) Reassurance given NST- reactive cat 1 Kick counts reviewed with patient 25 weeks gestation of (HCC) RTO as scheduled Jyotsna Dorsey MD [facility] 12-04-2024 Instructions Maty Victor MA - 12/04/2024 10:26 AM EDT SEQUENTIAL SCREENINGS [facility] offers sequential screenings for women who are interested in screenings for chromosomal abnormalities and certain defects during a . The sequential screen combines ultrasound and blood tests to determine the risk of chromosomal abnormalities, including Down's Syndrome (Trisomy 21) and Trisomy 18, as well as open neural tube defects including spina bifida. Ultrasound examination is performed between 11 weeks and 13 weeks gestational age. Blood tests are drawn after the ultrasound and again later in the between 15 and 21 weeks gestational age. Please let your physician know if you are interested in this testing. It will require an appointment with our hvac service technician. This is not an ultrasound performed by a physician in our office during a routine visit. SIGNS AND SYMPTOMS OF LABOR 1. Contractions every 10 minutes or more often 2. Clear, pink, or brownish fluid (water) leaking from vagina 3. Feeling that baby is pushing down, pressure 4. Low, dull backache 5. Cramps that feel like a period 6. Cramps with or without diarrhea If you notice any of the above symptoms, contact our office at [phone] and ask to speak with a nurse. After hours, you can call doctors registry at [phone] OR call [facility] at [phone] and ask to have the doctor assistant corporate controller paged. If you consider this an emergency, dial or go to your nearest emergency department. NEED HELP? Are you dealing with a violent or abusive relationship? Are you a victim of rape or sexual assult? Call [facility] ([place]) 24 hour Crisis Hotline: 676.790.6275 or 438-914-5566. MANUAL Your Guide to a Healthy manual is now on-line. Visit [email or web address] Stacy to download your free copy documented in this encounter [facility] 12-04-2024 Miscellaneous Notes Patient scheduled Ob patient is 25w4d documented in this encounter [facility] 12-04-2024 Telephone encounter Note Patient scheduled [facility] 12-04-2024 Telephone encounter Note Ob patient is 25w4d [facility] 11-28-2024 Note Addended by: OCTAVIA HERZOG on: 11/28/2024 03:16 PM Modules accepted: Orders [facility] 11-28-2024 Miscellaneous Notes Addended by: OCTAVIA HERZOG on: 11/28/2024 03:16 PM Modules accepted: Orders Addended by: KARLY PARDO on: 11/28/2024 03:01 PM Modules accepted: Orders documented in this encounter [facility] 11-28-2024 Note Addended by: KARLY PARDO on: 11/28/2024 03:01 PM Modules accepted: Orders [facility] 11-28-2024 Note HNO ID: [id number] Author: OCTAVIA HERZOG MD Service: ? Author Type: Physician Type: Progress Notes Filed: 11/28/2024 14:56 Note Text: SW- Urinary frequency and urgency. No dysuria. No ctx, vb, lof. Good FM. Used Monistat 1 day several days ago. She was having vaginal itching and occasional white discharge. PE: Gen- NAD, well appearing Abd- Soft, gravid, NT See flowsheet A/p 24 wk gestation - Discussed urinary symptoms. Urine dip negative - Check BV, yeast - Cont LDA - 28 wk labs ordered - Questions answered - Discussed diet and exercise in , and normal weight gain - RTO 4 wks Octavia Herzog DO [facility] 11-28-2024 History of Presen t illness Narrative SW- Urinary frequency and urgency. No dysuria. No ctx, vb, lof. Good FM. Used Monistat 1 day several days ago. She was having vaginal itching and occasional white discharge. PE: Gen- NAD, well appearing Abd- Soft, gravid, NT See flowsheet A/p 24 wk gestation - Discussed urinary symptoms. Urine dip negative - Check BV, yeast - Cont LDA - 28 wk labs ordered - Questions answered - Discussed diet and exercise in , and normal weight gain - RTO 4 wks Octavia Herzog DO documented in this encounter [facility] 11-28-2024 Instructions Karly Pardo MA - 11/28/2024 2:21 PM EDT SEQUENTIAL SCREENINGS [facility] offers sequential screenings for women who are interested in screenings for chromosomal abnormalities and certain defects during a . The sequential screen combines ultrasound and blood tests to determine the risk of chromosomal abnormalities, including Down's Syndrome (Trisomy 21) and Trisomy 18, as well as open neural tube defects including spina bifida. Ultrasound examination is performed between 11 weeks and 13 weeks gestational age. Blood tests are drawn after the ultrasound and again later in the between 15 and 21 weeks gestational age. Please let your physician know if you are interested in this testing. It will require an appointment with our hvac service technician. This is not an ultrasound performed by a physician in our office during a routine visit. SIGNS AND SYMPTOMS OF LABOR 1. Contractions every 10 minutes or more often 2. Clear, pink, or brownish fluid (water) leaking from vagina 3. Feeling that baby is pushing down, pressure 4. Low, dull backache 5. Cramps that feel like a period 6. Cramps with or without diarrhea If you notice any of the above symptoms, contact our office at [phone] and ask to speak with a nurse. After hours, you can call doctors registry at [phone] OR call [facility] at [phone] and ask to have the doctor assistant corporate controller paged. If you consider this an emergency, dial 9-3- or go to your nearest emergency department. NEED HELP? Are you dealing with a violent or abusive relationship? Are you a victim of rape or sexual assult? Call [facility] ([facility] 24 hour Crisis Hotline: 679.818.8676 or 287-944-2641. MANUAL Your Guide to a Healthy manual is now on-line. Visit [email or web address] Stacy to download your free copy documented in this encounter [facility] 10-31-2024 Progress note Formatting of t his note might be different from the original. S: Gabe Hubbard is a 29 year old female who presents at 03/15/2025, by Last Menstrual Period for a routine visit. Denies headache, visual changes, chest pain, shortness of breath, vaginal bleeding, leakage of fluid, or dysuria. Feeling well, no complaints. O: See flow sheet Gen: No apparent distress Anatomy US completed today Trying to quit vaping. Discussed ways to decrease use. 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 ASSESSMENT/PLAN: 1. Encounter for supervision of high risk in second trimester, antepartum (HCC) - ICD9: V23.9, ICD10: O09.92 (primary diagnosis) 2. 20 weeks gestation of (HCC) - ICD9: V22.2, ICD10: Z3A.20 Klarissa Rain MD [facility] 10-31-2024 Miscellaneous Notes S: Gaeb Hubbard is a 29 year old female who presents at 03/15/2025, by Last Menstrual Period for a routine visit. Denies headache, visual changes, chest pain, shortness of breath, vaginal bleeding, leakage of fluid, or dysuria. Feeling well, no complaints. O: See flow sheet Gen: No apparent distress Anatomy US completed today Trying to quit vaping. Discussed ways to decrease use. 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 ASSESSMENT/PLAN: 1. Encounter for supervision of high risk in second trimester, antepartum (HCC) - ICD9: V23.9, ICD10: O09.92 (primary diagnosis) 2. 20 weeks gestation of (HCC) - ICD9: V22.2, ICD10: Z3A.20 Klarissa Rain MD documented in this encounter [facility] 10-31-2024 Instructions Maty Victor MA - 10/31/2024 8:34 AM EDT SEQUENTIAL SCREENINGS [facility] offers sequential screenings for women who are interested in screenings for chromosomal abnormalities and certain defects during a . The sequential screen combines ultrasound and blood tests to determine the risk of chromosomal abnormalities, including Down's Syndrome (Trisomy 21) and Trisomy 18, as well as open neural tube defects including spina bifida. Ultrasound examination is performed between 11 weeks and 13 weeks gestational age. Blood tests are drawn after the ultrasound and again later in the between 15 and 21 weeks gestational age. Please let your physician know if you are interested in this testing. It will require an appointment with our hvac service technician. This is not an ultrasound performed by a physician in our office during a routine visit. SIGNS AND SYMPTOMS OF LABOR 1. Contractions every 10 minutes or more often 2. Clear, pink, or brownish fluid (water) leaking from vagina 3. Feeling that baby is pushing down, pressure 4. Low, dull backache 5. Cramps that feel like a period 6. Cramps with or without diarrhea If you notice any of the above symptoms, contact our office at [phone] and ask to speak with a nurse. After hours, you can call doctors registry at [phone] OR call [facility] at [phone] and ask to have the doctor assistant corporate controller paged. If you consider this an emergency, dial [phone] or go to your nearest emergency department. NEED HELP? Are you dealing with a violent or abusive relationship? Are you a victim of rape or sexual assult? Call [facility] ([place]) 24 hour Crisis Hotline: 970.944.4098 or 214-018-8431. MANUAL Your Guide to a Healthy manual is now on-line. Visit [email or web address] Stacy to download your free copy documented in this encounter [facility] 10-15-2024 Telephone encounter Note Patient called in and will pick paperwork up. All to front of house manager front of house manager binder. Rita Chairez RN [facility] 10-15-2024 Miscellaneous Notes Patient called in and will pick paperwork up. All to front of house manager front of house manager binder. Rita Chairez RN SW asked that Pt's FMLA, work restrictions letter, & list of patient appointments be printed out for patient. 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 All are printed out with patient label and at nurses desk. Breanna Gillette RN documented in this encounter [facility] 10-03-2024 Telephone encounter Note SW asked that Pt's FMLA, work restrictions letter, & list of patient appointments be printed out for patient. 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 All are printed out with patient label and at nurses desk. Breanna Gillette RN [facility] 10-03-2024 Progress note Formatting of t his note might be different from the original. SW- pt doing well. No pain, vb, lof. PE: Gen- NAD, well appearing Abd- Soft, NT See flowsheet A/p 16 wk gestation - Cont LDA - Completed NIPT and NOB labs - Schedule anatomy US - RTO 4 wks Octavia Herzog DO [facility] 10-03-2024 Miscellaneous Notes SW- pt doing well. No pain, vb, lof. PE: Gen- NAD, well appearing Abd- Soft, NT See flowsheet A/p 16 wk gestation - Cont LDA - Completed NIPT and NOB labs - Schedule anatomy US - RTO 4 wks Octavia Herzog DO documented in this encounter [facility] 10-03-2024 Instructions Karly Pardo MA - 10/03/2024 10:20 AM EDT SEQUENTIAL SCREENINGS [facility] offers sequential screenings for women who are interested in screenings for chromosomal abnormalities and certain defects during a . The sequential screen combines ultrasound and blood tests to determine the risk of chromosomal abnormalities, including Down's Syndrome (Trisomy 21) and Trisomy 18, as well as open neural tube defects including spina bifida. Ultrasound examination is performed between 11 weeks and 13 weeks gestational age. Blood tests are drawn after the ultrasound and again later in the between 15 and 21 weeks gestational age. Please let your physician know if you are interested in this testing. It will require an appointment with our hvac service technician. This is not an ultrasound performed by a physician in our office during a routine visit. SIGNS AND SYMPTOMS OF LABOR 1. Contractions every 10 minutes or more often 2. Clear, pink, or brownish fluid (water) leaking from vagina 3. Feeling that baby is pushing down, pressure 4. Low, dull backache 5. Cramps that feel like a period 6. Cramps with or without diarrhea If you notice any of the above symptoms, contact our office at [phone] and ask to speak with a nurse. After hours, you can call doctors registry at [phone] OR call [facility] at [phone] and ask to have the doctor assistant corporate controller paged. If you consider this an emergency, dial 9-1-1 or go to your nearest emergency department. NEED HELP? Are you dealing with a violent or abusive relationship? Are you a victim of rape or sexual assult? Call [facility] ([place]) 24 hour Crisis Hotline: 339.948.3819 or 945-836-2427. MANUAL Your Guide to a Healthy manual is now on-line. Visit [email or web address] to download your free copy documented in this encounter [facility] 09-11-2024 Progress note Formatting of t his note might be different from the original. S: Gabe Viera is a 28 year old female who presents at 13 weeks gestation for a routine visit. Continues to have occasional cramps and has had to leave work several times. Lifting sometimes over 50 lbs.at work. Does not drink much water or fluids. Denies headache, visual changes, chest pain, shortness of breath, vaginal bleeding, leakage of fluid, or dysuria. O: See flow sheet Gen: No apparent distress Abd: Gravid, nontender ASSESSMENT/PLAN: 1. 13 weeks gestation of 2. Encounter for supervision of high risk in first trimester - [id number] PLUS - labs today- concern over FOB has hx of +HepC. She has never tested positive - Letter for lifting restrictions for work provided - Start ASA PO nightly - Increase fluids - RTO 4 weeks or sooner if needed Sunitha Aguilar APRN.CNM [facility] 09-11-2024 Miscellaneous Notes S: Gabe Viera is a 28 year old female who presents at 13 weeks gestation for a routine visit. Continues to have occasional cramps and has had to leave work several times. Lifting sometimes over 50 lbs.at work. Does not drink much water or fluids. Denies headache, visual changes, chest pain, shortness of breath, vaginal bleeding, leakage of fluid, or dysuria. O: See flow sheet Gen: No apparent distress Abd: Gravid, nontender ASSESSMENT/PLAN: 1. 13 weeks gestation of 2. Encounter for supervision of high risk in first trimester - [id number] PLUS - labs today- concern over FOB has hx of +HepC. She has never tested positive - Letter for lifting restrictions for work provided - Start ASA PO nightly - Increase fluids - RTO 4 weeks or sooner if needed Sunitha Aguilar APRN.CNM documented in this encounter [facility] 09-11-2024 Instructions Karly Pardo MA - 09/11/2024 1:01 PM EDT SEQUENTIAL SCREENINGS The [facility] offers sequential screenings for women who are interested in screenings for chromosomal abnormalities and certain defects during a . The sequential screen combines ultrasound and blood tests to determine the risk of chromosomal abnormalities, including Down's Syndrome (Trisomy 21) and Trisomy 18, as well as open neural tube defects including spina bifida. Ultrasound examination is performed between 11 weeks and 13 weeks gestational age. Blood tests are drawn after the ultrasound and again later in the between 15 and 21 weeks gestational age. Please let your physician know if you are interested in this testing. It will require an appointment with our hvac service technician. This is not an ultrasound performed by a physician in our office during a routine visit. SIGNS AND SYMPTOMS OF LABOR 1. Contractions every 10 minutes or more often 2. Clear, pink, or brownish fluid (water) leaking from vagina 3. Feeling that baby is pushing down, pressure 4. Low, dull backache 5. Cramps that feel like a period 6. Cramps with or without diarrhea If you notice any of the above symptoms, contact our office at [phone] and ask to speak with a nurse. After hours, you can call doctors registry at [phone] OR call [facility] at [phone] and ask to have the doctor assistant corporate controller paged. If you consider this an emergency, dial 4-3-2 or go to your nearest emergency department. NEED HELP? Are you dealing with a violent or abusive relationship? Are you a victim of rape or sexual assult? Call [facility] ([place]) 24 hour Crisis Hotline: 534.126.4432 or 720-581-3919. MANUAL Your Guide to a Healthy manual is now on-line. Visit [email or web address] to download your free copy documented in this encounter [facility] 09-05-2024 Progress note Formatting of t his note might be different from the original. KJ S: Patient presents with bladder pressure. Also she reports having spotting last week that has become scant brown spotting. She reports ED visits for both of these concerns. O: 12w5d, see flow sheet SENSITIVE EXAM: Sensitive exam not performed. A/P: Assessment & Plan Cramping affecting , antepartum ([facility]) Orders: UA DIP, URINE (POC) BACTERIAL CULTURE, URINE Vaginal spotting Orders: UA DIP, URINE (POC) BACTERIAL CULTURE, URINE 12 weeks gestation of ([facility]) Orders: UA DIP, URINE (POC) BACTERIAL CULTURE, URINE Encounter for supervision of high risk in first trimester, antepartum ([facility]) Orders: UA DIP, URINE (POC) BACTERIAL CULTURE, URINE Bedside TAUS shows active fetus with FCA. Follow up next week for NT as scheduled. Sudarshan Hong MD [facility] 09-05-2024 Miscellaneous Notes KJ S: Patient presents with bladder pressure. Also she reports having spotting last week that has become scant brown spotting. She reports ED visits for both of these concerns. O: 12w5d, see flow sheet SENSITIVE EXAM: Sensitive exam not performed. A/P: Assessment & Plan Cramping affecting , antepartum ([facility]) Orders: UA DIP, URINE (POC) BACTERIAL CULTURE, URINE Vaginal spotting Orders: UA DIP, URINE (POC) BACTERIAL CULTURE, URINE 12 weeks gestation of ([facility]) Orders: UA DIP, URINE (POC) BACTERIAL CULTURE, URINE Encounter for supervision of high risk in first trimester, antepartum ([facility]) Orders: UA DIP, URINE (POC) BACTERIAL CULTURE, URINE Bedside TAUS shows active fetus with FCA. Follow up next week for NT as scheduled. Sudarshan Hong MD documented in this encounter [facility] 09-05-2024 Instructions Ashlyn Vasques MA - 09/05/2024 2:11 PM EDT SEQUENTIAL SCREENINGS [facility] offers sequential screenings for women who are interested in screenings for chromosomal abnormalities and certain defects during a . The sequential screen combines ultrasound and blood tests to determine the risk of chromosomal abnormalities, including Down's Syndrome (Trisomy 21) and Trisomy 18, as well as open neural tube defects including spina bifida. Ultrasound examination is performed between 11 weeks and 13 weeks gestational age. Blood tests are drawn after the ultrasound and again later in the between 15 and 21 weeks gestational age. Please let your physician know if you are interested in this testing. It will require an appointment with our hvac service technician. This is not an ultrasound performed by a physician in our office during a routine visit. SIGNS AND SYMPTOMS OF LABOR 1. Contractions every 10 minutes or more often 2. Clear, pink, or brownish fluid (water) leaking from vagina 3. Feeling that baby is pushing down, pressure 4. Low, dull backache 5. Cramps that feel like a period 6. Cramps with or without diarrhea If you notice any of the above symptoms, contact our office at [phone] and ask to speak with a nurse. After hours, you can call doctors registry at [phone] OR call [facility] at [phone] and ask to have the doctor assistant corporate controller paged. If you consider this an emergency, dial 9-1-2 or go to your nearest emergency department. NEED HELP? Are you dealing with a violent or abusive relationship? Are you a victim of rape or sexual assult? Call [facility] ([place]) 24 hour Crisis Hotline: 178.814.2849 or 174-436-3128. MANUAL Your Guide to a Healthy manual is now on-line. Visit [email or web address] Stacy to download your free copy documented in this encounter [facility] 09-04-2024 Telephone encounter Note ER records are in CareEverywhere. Appointment scheduled for tomorrow with RR. Klarissa Beckett, KATIE [facility] 09-04-2024 Miscellaneous Notes ER records are in CareEverywhere. Appointment scheduled for tomorrow with TIARA. Klarissa Beckett, RN Can schedule for appointment this week. Get both ED records. Thanks, Brooklyn Villalpando APRN.CNM 12w4d Patient calling with update after going to [place] ER yesterday. She thought she had UTI, but was told urine was negative and to f/u with OB provider. No u/s was done. Stated pain has lessened since yesterday, but she is still having constant pressure feeling like her bladder is full. She is having some brown discharge still from when she had bleeding on 08/29 (she went to [facility] ER for this and did have u/s then). No cramping, but does still have some discomfort with moving especially that causes a cramp like feeling at times. Please advise. Rita Chairez RN documented in this encounter [facility] 09-04-2024 Telephone encounter Note Can schedule for appointment this week. Get both ED records. Thanks, Brooklyn Villalpando APRN.CNM [facility] Work Phone: 09-04-2024 Telephone encounter Note 12w4d Patient calling with update after going to [place] ER yesterday. She thought she had UTI, but was told urine was negative and to f/u with OB provider. No u/s was done. Stated pain has lessened since yesterday, but she is still having constant pressure feeling like her bladder is full. She is having some brown discharge still from when she had bleeding on 08/29 (she went to [facility] ER for this and did have u/s then). No cramping, but does still have some discomfort with moving especially that causes a cramp like feeling at times. Please advise. Rita Chairez RN [facility] 09-03-2024 Note HNO ID: [id number] Author: WENDY TREVIZO LPN Service: ? Author Type: LICENSED NURSE Type: Progress Notes Filed: 09/03/2024 14:35 Note Text: ED Follow-Up Note Provider Action / FYI: Call completed by: JAMMIE Patient seen in ED: Out of Network ED Contact made with Patient: Yes The patient was identified by Name and Date of . Discussed Care with: patient Patient was seen in the Emergency Department (ED) Location: [place] Date: 08/29/2024 Reason for ED Visit: Vaginal bleeding affecting early ED Intervention: Transvaginal ultrasound Labs Urine culture New Medications: None Medication Changes: None Does patient understand medication changes: N/A Can patient afford medication changes: N/A Patient educated on worsening symptoms and when and where to seek additional care: No Patient Education Provided including treatment plan and new orders. Patient provided with appropriate counseling: Yes Per pt she has follow up with OB next week. Pt states that she thinks that her ear infection is back. Pt would like to schedule follow up. Call transferred to call center. Wendy Trevizo LPN [facility] 09-03-2024 History of Presen t illness Narrative ED Follow-Up Note Provider Action / FYI: Call completed by: JAMMIE Patient seen in ED: Out of Network ED Contact made with Patient: Yes The patient was identified by Name and Date of . Discussed Care with: patient Patient was seen in the Emergency Department (ED) Location: Date: 08/29/2024 Reason for ED Visit: Vaginal bleeding affecting early ED Intervention: Transvaginal ultrasound Labs Urine culture New Medications: None Medication Changes: None Does patient understand medication changes: N/A Can patient afford medication changes: N/A Patient educated on worsening symptoms and when and where to seek additional care: No Patient Education Provided including treatment plan and new orders. Patient provided with appropriate counseling: Yes Per pt she has follow up with OB next week. Pt states that she thinks that her ear infection is back. Pt would like to schedule follow up. Call transferred to call center. Wendy Trevizo LPN documented in this encounter [facility] 09-03-2024 Note Patient Outreach (AG FAMPLE) GABE VIERA ([id number]) 1995 F ONOFRE Date Time Provider Department 09/03/24 ELISABET MORGAN During your visit today, we recorded the following information about you: Wendy Trevizo LPN 09/03/2024 2:35 PM Signed ED Follow-Up Note Provider Action / FYI: Call completed by: JAMMIE Patient seen in ED: Out of Network ED Contact made with Patient: Yes The patient was identified by Name and Date of . Discussed Care with: patient Patient was seen in the Emergency Department (ED) Location: [place] Date: 08/29/2024 Reason for ED Visit: Vaginal bleeding affecting early ED Intervention: Transvaginal ultrasound Labs Urine culture New Medications: None Medication Changes: None Does patient understand medication changes: N/A Can patient afford medication changes: N/A Patient educated on worsening symptoms and when and where to seek additional care: No Patient Education Provided including treatment plan and new orders. Patient provided with appropriate counseling: Yes Per pt she has follow up with OB next week. Pt states that she thinks that her ear infection is back. Pt would like to schedule follow up. Call transferred to call center. Wendy Trevizo LPN Allergies As of Date: 09/03/2024 Noted Allergy Reaction AMOXICILLIN 07/21/2014 7 - Swelling PENICILLINS 07/21/2014 7 - Swelling Date Reviewed: 08/22/2024 Reviewed by: Freda Santillan APRN.MED DIR - Fully Assessed Reason for Visit: ED Follow-up [821] Cmt: [place] [facility] 08/29/2024 Prescriptions as of 09/03/2024 - aspirin, enteric coated (ECOTRIN LOW STRENGTH) 81 mg EC tablet Take 1 tablet by mouth once daily. - Vitamin w/ Iron (PNV NO. 72, W/ IRON,) 27 mg iron- 1 mg Take 1 tablet by mouth once daily. Meds Comments as of 12/14/2015: Pt states she takes control pill, unable to recall which one Problem List As Of Date 09/03/2024 Noted Resolved Use of nicotine during (HCC) [O99.330]08/01/2024 Vaginal discharge [N89.8] 08/01/2024 Encounter for supervision of high risk pregnanc*08/01/2024 Depression with anxiety [F41.8] 08/01/2024 Nausea and vomiting during (HCC) [O21*08/01/2024 Fall [W19.XXXA] 08/01/2024 Penicillin allergy [Z88.0] 08/01/2024 Encounter Status:Closed by WENDY TREVIZO on 09/03/24 [facility] 08-22-2024 Instructions Freda Santillan APRN.MED DIR - 08/22/2024 8:59 AM EDT MORNING SICKNESS IN by Teresa Zhou M.D. for [employer] As you may already know, morning sickness can often be more appropriately called evening sickness or fcryl-oinpjc-si-the-day sickness. While there are the ni few, most women (50-90%) experience some degree of nausea, some have vomiting, and a few develop a severe form of vomiting during called hyperemesis gravidarum. What causes the nausea and vomiting of ? We can't explain why some people feel fine and others are green for months. Even the same woman may feel vastly different in each . There is some relationship between nausea and the level of the hormone hCG. In twin pregnancies, and in other situations where the hCG is greater than expected, nausea and vomiting tend to be worse. In a destined for miscarriage, hCG levels tend to be low, and nausea is often less severe. This being said, a lack of nausea doesn't guarantee that the is destined for miscarriage. The fact that nausea and vomiting are often signs of a healthy can offer a silver lining in the dark cloud of miserable nausea. How long will the nausea last? Fortunately, for most women, nausea and vomiting are a first trimester event, peaking at week 9-10 and waning by week 14-16. When you are feeling bad the weeks can go by slowly but most moms do feel tremendously better by the middle of the . Whether morning sickness is a brief experience or lasts through most of the , there are treatments that can make the weeks or months more tolerable. What can you do about it? Diet: See what works for you. Try eating bland dry foods, and avoid fatty or spicy foods. It is okay to eat a less than perfectly balanced diet in the first trimester. Have your liquids separately from dry foods. Try sports drinks, water, clear juices, Sherif-aid, or non-caffeinated tea. Avoid carbonated beverages that fill up your stomach. Try eating lots of little meals. If you tend to feel sick when you first wake up, leave crackers next to the bed for a quick snack before rising. Keeping healthy snacks with you all day to nibble when you feel queasy can sometimes even prevent nausea from starting. vitamins and nausea: Pre- vitamins can sometimes worsen nausea in . While folate is necessary, especially early in the , it comes as a smaller pill that many people find more tolerable than the complete vitamin pill. Ask your practitioner if it is okay to temporarily replace vitamins and iron with just a folate pill if you find a significant worsening in the level of your nausea from the vitamins. Alternative therapies: Acupressure may be used to treat nausea in , and is not known to have any risks for the fetus. Wristbands (marketed for seasickness) that put pressure on an acupressure point at the wrist are often available at drugstores or travel stores. Kamar root is used for nausea in many traditional cultures. Some women take fresh grated kamar or kamar tablets. It is possible that the pill form contains other ingredients or contaminants, so you may want to try fresh kamar first. Medications: Emetrol is the only nausea medication approved for use in . It is available over the counter and is soothing to the stomach. A prescription medication called Bendectin was available in the 1970s-1980's and was shown to be safe in , but the company stopped marketing it in the [place] due to the costs of liability coverage. Bendectin contained 10 milligrams of vitamin B6 and 10 milligrams of Doxylamine. Two tablets were given at bedtime and a total of up to 4 tablets could be used in a 24-hour period. Interestingly, Unisom , which contains a higher dose (25 mg.) of the same medication, Doxylamine, is currently marketed as an psjq-tjg-omhxwsf sleeping pill. Ask your practitioner if creating a vitamin B6/Doxylamine combination with chpd-ghc-oyqrafx medications would be safe for you. Prescription medications like Compazine and Phenergan can be used if the benefits outweigh possible risks, but these have not been clearly shown to be safe in . Zofran , an expensive anti-nausea medication often used to treat nausea from chemotherapy, can also be used. Can I throw up so much it harms the baby? The act of vomiting cannot hurt your fetus, which is protected inside the uterus. If you get dehydrated or develop a metabolic imbalance, this can be unhealthy. As long as you can keep down liquids, you and your baby will generally do all right. Eat when you feel able. If you are unable to keep anything down, or if you notice potential signs of dehydration such as lightheadedness, or concentrated and/or infrequent urination, call your practitioner. Some women need brief hospital admission for intravenous fluids and anti-nausea medications if their condition becomes severe. This severe form of nausea and vomiting is called Hyperemesis Gravidarum. As with many symptoms of , remind yourself that this, too, shall pass, and you'll have a wonderful baby to show for it! TREATMENT OPTIONS, SHORT VERSION: Frequent small meals Hydrate throughout day [employer] wrist pressure point applicators Kamar root (powdered, in capsules) 250mg four times a day Vitamin B6 25 mg tablet three times a day Also may be taken with half a tablet of Unisom three times a day (Doxylamine 12.5 mg) If severe (weight loss, dehydration), call us and come in for IV hydration and possible medication in the form of injections. Prescription medications such as Phenergan, Compazine, Reglan documented in this encounter [facility] 08-22-2024 Note HNO ID: [id number] Author: FREDA SANTILLAN APRN.MED DIR Service: ? Author Type: Nurse Practitioner Type: Progress Notes Filed: 08/22/2024 09:10 Note Text: [employer] Pan[employer] Plater offered: Patient declines. Gabe Viera is a 28 year old female who presents for problem visit of spotting and cramping during . HPI: Beth presents for spotting and cramping in . POCUS confirms IUP on 08/01/24 . Rates cramping 07/18. Spotting is a light brown color and she reports some vaginal discharge. + for yeast/glabrata 08/01/24 Drinks 2 orange pops per day, as well as a Dr. Torri. Continues to vape, but has decreased. She also reports severe nausea. Reports vomiting 3 times in the last week. Not taking Vitamin B6. 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 History Comments: Sexual Activity: Yes; Male Contraception: No contraception data on record PAST MEDICAL HISTORY Diagnosis Date Anxiety Asthma (HCC) childhood Bronchitis Depression Personality disorder (HCC) PAST SURGICAL HISTORY Procedure Laterality Date NONE FAMILY HISTORY Problem Relation Age of Onset No Known Problems Mother No Known Problems Father Diabetes Maternal Grandmother Ovarian cancer Paternal Grandmother No Known Problems Half-brother No Known Problems Half-sister No Known Problems Half-sister No Known Problems Half-sister No Known Problems Half-sister Diabetes Other Social History Tobacco Use Smoking status: Former Current packs/day: 1.00 Types: Cigarettes Smokeless tobacco: Never Vaping Use Vaping status: current everyday user Substances: Nicotine, Flavoring Substance Use Topics Alcohol use: No Drug use: No Current Outpatient Medications Medication Sig aspirin, enteric coated (ECOTRIN LOW STRENGTH) 81 mg EC tablet Take 1 tablet by mouth once daily. (Patient not taking: Reported on 08/15/2024) Vitamin w/ Iron (PNV NO. 72, W/ IRON,) 27 mg iron- 1 mg Take 1 tablet by mouth once daily. No current facility-administered medications for this visit. Allergies As of Date: 08/22/2024 Allergen Noted Reaction AMOXICILLIN 07/21/2014 Swelling PENICILLINS 07/21/2014 Swelling Fully Assessed 08/15/2024 REVIEW OF SYSTEMS Abdomen: No bloating, early satiety, indigestion, or increased flatulence. No abdominal pain, diarrhea, or constipation. 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 As applicable, any other physician, advance practice provider, medical student, or other health professional student that will be observing or involved in the sensitive examination for educational or training purposes was discussed with the Patient or Authorized Gel Coater. The Patient or Authorized Gel Coater has agreed to proceed with the sensitive examination. (Sensitive examination includes inspection and/or palpation of the breasts, pelvis, prostate and anorectal regions). EXAM: BP 100/60 Wt 144 lb (65.3kg) LMP 06/08/2024 GENERAL: pleasant, female in no apparent distress HEENT: Normocephalic, atraumatic, mucus membranes moist, and no lesions CHEST: Normal inspiratory effort PELVIC: external genitalia normal, normal Bartholin's glands, urethra, [place]'s glands, no vulvar lesions, no cervical lesions, good vaginal support, + brown discharge noted, normal appearing perineal body and perianal region NEURO: alert and oriented x3,exam grossly non-focal EXTREMITIES: normal ASSESSMENT AND PLAN: 1. Cramping affecting , antepartum ([facility]) - ICD9: 646.83, 789.00, ICD10: O26.899, R10.9 (primary diagnosis) - Recommend decreasing caffeine/sugary drink consumption - Increase water intake 2. Vaginal discharge - ICD9: 623.5, ICD10: N89.8 3. Vaginal spotting - ICD9: 623.8, ICD10: N93.9 - BV/yeast culture obtained - Avoid intercourse at this time 4. 10 weeks gestation of ([facility]) - ICD9: V22.2, ICD10: Z3A.10 - Cardiac activity confirmed 5. Use of nicotine during ([facility]) - ICD9: 649.00, ICD10: O99.330 - Discussed this will contribute to nausea and recommend cessation to decrease risks to mom and baby 6. Nausea and vomiting during ([facility]) - ICD9: 643.90, ICD10: O21.9 - Start Vitamin B6 as directed last visit - Eat small frequent meals - To notify if going longer than 12-24 hours without eating or drinking RTO for scheduled OB visit or sooner as needed. 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 Gabe Viera is a 28 year old female who presents for problem visit of spotting and cramping during . HPI: Beth presents for spotting and cramping in . POCUS confirms IUP on 08/01/24 . Rates cramping 07/18. Spotting is a light brown color and she reports some vaginal discharge. + for yeast/glabrata 08/01/24 Drinks 2 orange pops per day, as well as a DrBecca Wild. Continues to vape, but has decreased. She also reports severe nausea. Reports vomiting 3 times in the last week. Not taking Vitamin B6. 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 History Comments: Sexual Activity: Yes; Male Contraception: No contraception data on record PAST MEDICAL HISTORY Diagnosis Date Anxiety Asthma (HCC) childhood Bronchitis Depression Personality disorder (HCC) PAST SURGICAL HISTORY Procedure Laterality Date NONE FAMILY HISTORY Problem Relation Age of Onset No Known Problems Mother No Known Problems Father Diabetes Maternal Grandmother Ovarian cancer Paternal Grandmother No Known Problems Half-brother No Known Problems Half-sister No Known Problems Half-sister No Known Problems Half-sister No Known Problems Half-sister Diabetes Other Social History Tobacco Use Smoking status: Former Current packs/day: 1.00 Types: Cigarettes Smokeless tobacco: Never Vaping Use Vaping status: current everyday user Substances: Nicotine, Flavoring Substance Use Topics Alcohol use: No Drug use: No Current Outpatient Medications Medication Sig aspirin, enteric coated (ECOTRIN LOW STRENGTH) 81 mg EC tablet Take 1 tablet by mouth once daily. (Patient not taking: Reported on 08/15/2024) Vitamin w/ Iron (PNV NO. 72, W/ IRON,) 27 mg iron- 1 mg Take 1 tablet by mouth once daily. No current facility-administered medications for this visit. Allergies As of Date: 08/22/2024 Allergen Noted Reaction AMOXICILLIN 07/21/2014 Swelling PENICILLINS 07/21/2014 Swelling Fully Assessed 08/15/2024 REVIEW OF SYSTEMS Abdomen: No bloating, early satiety, indigestion, or increased flatulence. No abdominal pain, diarrhea, or constipation. 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 As applicable, any other physician, advance practice provider, medical student, or other health professional student that will be observing or involved in the sensitive examination for educational or training purposes was discussed with the Patient or Authorized Gel Coater. The Patient or Authorized Gel Coater has agreed to proceed with the sensitive examination. (Sensitive examination includes inspection and/or palpation of the breasts, pelvis, prostate and anorectal regions). EXAM: BP 100/60 Wt 144 lb (65.3kg) LMP 06/08/2024 GENERAL: pleasant, female in no apparent distress HEENT: Normocephalic, atraumatic, mucus membranes moist, and no lesions CHEST: Normal inspiratory effort PELVIC: external genitalia normal, normal Bartholin's glands, urethra, [place]'s glands, no vulvar lesions, no cervical lesions, good vaginal support, + brown discharge noted, normal appearing perineal body and perianal region NEURO: alert and oriented x3,exam grossly non-focal EXTREMITIES: normal ASSESSMENT AND PLAN: 1. Cramping affecting , antepartum (HCC) - ICD9: 646.83, 789.00, ICD10: O26.899, R10.9 (primary diagnosis) - Recommend decreasing caffeine/sugary drink consumption - Increase water intake 2. Vaginal discharge - ICD9: 623.5, ICD10: N89.8 3. Vaginal spotting - ICD9: 623.8, ICD10: N93.9 - BV/yeast culture obtained - Avoid intercourse at this time 4. 10 weeks gestation of ([facility]) - ICD9: V22.2, ICD10: Z3A.10 - Cardiac activity confirmed 5. Use of nicotine during ([facility]CC) - ICD9: 649.00, ICD10: O99.330 - Discussed this will contribute to nausea and recommend cessation to decrease risks to mom and baby 6. Nausea and vomiting during ([facility]CC) - ICD9: 643.90, ICD10: O21.9 - Start Vitamin B6 as directed last visit - Eat small frequent meals - To notify if going longer than 12-24 hours without eating or drinking RTO for scheduled OB visit or sooner as needed. Freda Santillan APRN.CNP Medical Decision Making: Problems: Low: Acute, uncomplicated illness or injury Data: Unique test(s) ordered: 2 Risk: Minimal: Minimal risk from testing/treatment Medical Decision Making Level: 3 - Low documented in this encounter [facility] 08-21-2024 Telephone encounter Note 10w4d Patient called with c/o brown spotting since last night. Cramping pain rate of 4. Had a possible brown blood clot approximately 2 hours ago. Patient asking if she needs to be seen in ER. IUP seen on POCUS. Advised that we could bring her in to the office tomorrow since her bleeding is not red, heavy, and her pain is not severe. Patient agreeable. She was instructed to go to ER if those things occur. She is concerned for a missed AB and is scheduled for a visit tomorrow. Advised to call and cancel if she goes to ER for evaluation. DIEGO Beckett RN [facility] 08-21-2024 Miscellaneous Notes 10w4d Patient called with c/o brown spotting since last night. Cramping pain rate of 4. Had a possible brown blood clot approximately 2 hours ago. Patient asking if she needs to be seen in ER. IUP seen on POCUS. Advised that we could bring her in to the office tomorrow since her bleeding is not red, heavy, and her pain is not severe. Patient agreeable. She was instructed to go to ER if those things occur. She is concerned for a missed AB and is scheduled for a visit tomorrow. Advised to call and cancel if she goes to ER for evaluation. DIEGO Beckett, RN documented in this encounter [facility] 08-21-2024 Telephone encounter Note Patients intermittent FMLA paperwork has been completed and faxed back to employer. Patient notified. Osmani Juarez MA [facility] 08-21-2024 Miscellaneous Notes Patients intermittent FMLA paperwork has been completed and faxed back to employer. Patient notified. Osmani Juarez MA documented in this encounter [facility] 08-19-2024 Telephone encounter Note Patient informed of results. Marilyn Campos MA [facility] 08-19-2024 Telephone encounter Note ----- Message from Agustín Blackwell APRN.MED DIR sent at 08/18/2024 7:42 PM EDT ----- Negative covid flu and rsv [facility] 08-19-2024 Miscellaneous Notes Patient informed of results. Marilyn Campos MA ----- Message from Agustín Blackwell APRN.MED DIR sent at 08/18/2024 7:42 PM EDT ----- Negative covid flu and rsv documented in this encounter [facility] 08-15-2024 Note SARS-COV-2 (AGENT OF COVID-19) RNA: Not detected INFLUENZA A RNA: Not detected INFLUENZA B RNA: Not detected RESPIRATORY SYNCYTIAL VIRUS (RSV) RNA: Not detected [facility] Comment on above: Performed By: #### 2 [id number] #### [facility] CLIA [id number] [address] [place] [address] STATES OF [facility] 08-15-2024 History of Presen t illness Narrative This note was created using nubeloter. 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 Headache: - Headache x3 days. - No recent sick contacts or travel. Tonsillar Swelling: - Onset of tonsillar swelling yesterday, with associated odynophagia and dysphagia. - Denies post-nasal drainage. Otalgia: - Bilateral otalgia since last night. 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 Nausea and Vomiting: - Nausea all day yesterday and today. - Typically experiences morning sickness without emesis, but vomited today. - Vomiting triggered by slight movements; no relief post-emesis. - Appetite described as crappy due to constant nausea. - Taking vitamins. - Denies diarrhea. - Prescribed aspirin for cramping but has not picked it up. : - Approximately 10 weeks gestation. - Reports fatigue and feeling sluggish. - Denies abdominal or pelvic pain. - No children at home. Allergies: - Allergic to penicillin and amoxicillin. ALLERGIES Allergen Reactions Amoxicillin Swelling Penicillins Swelling Current Outpatient Medications Medication Sig Dispense Refill Vitamin w/ Iron (PNV NO. 72, W/ IRON,) 27 mg iron- 1 mg Take 1 tablet by mouth once daily. 30 tablet 2 aspirin, enteric coated (ECOTRIN LOW STRENGTH) 81 mg EC tablet Take 1 tablet by mouth once daily. (Patient not taking: Reported on 08/15/2024) 90 tablet 3 No current facility-administered medications for this visit. ACTIVE PROBLEM LIST Use of Nicotine During (Hcc) Vaginal Discharge Encounter for Supervision of High Risk in First Trimester, Antepartum ([facility]cc) Depression With Anxiety Nausea and Vomiting During (Hcc) Fall Penicillin Allergy PAST MEDICAL HISTORY Diagnosis Date Anxiety Asthma (HCC) childhood Bronchitis Depression Personality disorder (HCC) PAST SURGICAL HISTORY Procedure Laterality Date NONE Social History Tobacco Use Smoking status: Former Current packs/day: 1.00 Types: Cigarettes Smokeless tobacco: Never Vaping Use Vaping status: current everyday user Substances: Nicotine, Flavoring Substance Use Topics Alcohol use: No Drug use: No Family History Problem Relation Age of Onset No Known Problems Mother No Known Problems Father Diabetes Maternal Grandmother Ovarian cancer Paternal Grandmother No Known Problems Half-brother No Known Problems Half-sister No Known Problems Half-sister No Known Problems Half-sister No Known Problems Half-sister Diabetes Other . Review of Systems Constitutional: Negative for chills, fatigue, fever and unexpected weight change. HENT: Positive for ear pain, postnasal drip and sore throat. Negative for congestion, rhinorrhea, sinus pressure, sinus pain, sneezing, tinnitus and trouble swallowing. Respiratory: Positive for shortness of breath. Negative for cough and wheezing. Cardiovascular: Negative for chest pain, palpitations and leg swelling. Gastrointestinal: Positive for nausea and vomiting. Negative for abdominal pain, constipation and diarrhea. Genitourinary: Negative for difficulty urinating, flank pain and frequency. Neurological: Positive for headaches. Objective 08/15/24 1446 BP: 102/62 Pulse: 76 Temp: 36.9 C (98.5 F) SpO2: 98% Weight: 66 kg (145 lb 9.6 oz) Height: 162.6 cm (5' 4) BP 102/62 Pulse 76 Temp 36.9 C (98.5 F) Ht 162.6 cm (5' 4) Wt 66 kg (145 lb 9.6 oz) LMP 06/08/2024 (Approximate) SpO2 98% BMI 24.99 kg/m Physical Exam Vitals and nursing note reviewed. Constitutional: General: She is not in acute distress. Appearance: She is not ill-appearing. HENT: Head: Normocephalic and atraumatic. Cardiovascular: Rate and Rhythm: Normal rate and regular rhythm. Pulses: Normal pulses. Heart sounds: Normal heart sounds. No murmur heard. Pulmonary: Effort: Pulmonary effort is normal. No respiratory distress. Breath sounds: Normal breath sounds. No wheezing, rhonchi or rales. Abdominal: General: Abdomen is flat. Palpations: Abdomen is soft. Skin: General: Skin is warm and dry. Neurological: Mental Status: She is oriented to person, place, and time. Psychiatric: Mood and Affect: Mood normal. Behavior: Behavior normal. Thought Content: Thought content normal. Judgment: Judgment normal. Assessment and Plan 1. Non-recurrent acute suppurative otitis media of left ear without spontaneous rupture of tympanic membrane (H66.002) - Left ear shows signs of inflammation and infection on otoscopic examination. - Patient has a known allergy to penicillin and amoxicillin. - Initiated levofloxacin, which is considered safe during based on available data, for a short duration. - Advised to take the antibiotic with food to minimize gastrointestinal side effects. - Ordered COVID-19 and influenza swabs to rule out viral etiologies. 2. Sore throat (J02.9) - Mild tonsillar swelling observed without exudates. - Likely secondary to viral infection or referred pain from otitis media. - Advised rest and hydration. - Recommended a bland diet (e.g., bananas, rice, applesauce, toast) to manage nausea and maintain nutritional intake. - Encouraged the use of electrolyte solutions like Pedialyte to ensure adequate hydration. - Discussed the possibility of viral etiology; ordered COVID-19 and influenza swabs. - Patient to follow up with OB if symptoms persist or worsen. documented in this encounter [facility] 08-15-2024 Note HNO ID: [id number] Author: AGUSTÍN BLACKWELL APRN.MED DIR Service: ? Author Type: Nurse Practitioner Type: Progress Notes Filed: 08/15/2024 15:33 Note Text: This note was created using NoteWriter. 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 Headache: - Headache x3 days. - No recent sick contacts or travel. Tonsillar Swelling: - Onset of tonsillar swelling yesterday, with associated odynophagia and dysphagia. - Denies post-nasal drainage. Otalgia: - Bilateral otalgia since last night. 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 Nausea and Vomiting: - Nausea all day yesterday and today. - Typically experiences morning sickness without emesis, but vomited today. - Vomiting triggered by slight movements; no relief post-emesis. - Appetite described as crappy due to constant nausea. - Taking vitamins. - Denies diarrhea. - Prescribed aspirin for cramping but has not picked it up. : - Approximately 10 weeks gestation. - Reports fatigue and feeling sluggish. - Denies abdominal or pelvic pain. - No children at home. Allergies: - Allergic to penicillin and amoxicillin. ALLERGIES Allergen Reactions Amoxicillin Swelling Penicillins Swelling Current Outpatient Medications Medication Sig Dispense Refill Vitamin w/ Iron (PNV NO. 72, W/ IRON,) 27 mg iron- 1 mg Take 1 tablet by mouth once daily. 30 tablet 2 aspirin, enteric coated (ECOTRIN LOW STRENGTH) 81 mg EC tablet Take 1 tablet by mouth once daily. (Patient not taking: Reported on 08/15/2024) 90 tablet 3 No current facility-administered medications for this visit. ACTIVE PROBLEM LIST Use of Nicotine During ([facility]) Vaginal Discharge Encounter for Supervision of High Risk in First Trimester, Antepartum ([facility]) Depression With Anxiety Nausea and Vomiting During ([facility]) Fall Penicillin Allergy PAST MEDICAL HISTORY Diagnosis Date Anxiety Asthma ([facility]) childhood Bronchitis Depression Personality disorder ([facility]) PAST SURGICAL HISTORY Procedure Laterality Date NONE Social History Tobacco Use Smoking status: Former Current packs/day: 1.00 Types: Cigarettes Smokeless tobacco: Never Vaping Use Vaping status: current everyday user Substances: Nicotine, Flavoring Substance Use Topics Alcohol use: No Drug use: No Family History Problem Relation Age of Onset No Known Problems Mother No Known Problems Father Diabetes Maternal Grandmother Ovarian cancer Paternal Grandmother No Known Problems Half-brother No Known Problems Half-sister No Known Problems Half-sister No Known Problems Half-sister No Known Problems Half-sister Diabetes Other . Review of Systems Constitutional: Negative for chills, fatigue, fever and unexpected weight change. HENT: Positive for ear pain, postnasal drip and sore throat. Negative for congestion, rhinorrhea, sinus pressure, sinus pain, sneezing, tinnitus and trouble swallowing. Respiratory: Positive for shortness of breath. Negative for cough and wheezing. Cardiovascular: Negative for chest pain, palpitations and leg swelling. Gastrointestinal: Positive for nausea and vomiting. Negative for abdominal pain, constipation and diarrhea. Genitourinary: Negative for difficulty urinating, flank pain and frequency. Neurological: Positive for headaches. Objective 08/15/24 1446 BP: 102/62 Pulse: 76 Temp: 36.9 ?C (98.5 ?F) SpO2: 98% Weight: 66 kg (145 lb 9.6 oz) Height: 162.6 cm (5' 4) BP 102/62 Pulse 76 Temp 36.9 ?C (98.5 ?F) Ht 162.6 cm (5' 4) Wt 66 kg (145 lb 9.6 oz) LMP 06/08/2024 (Approximate) SpO2 98% BMI 24.99 kg/m? Physical Exam Vitals and nursing note reviewed. Constitutional: General: She is not in acute distress. Appearance: She is not ill-appearing. HENT: Head: Normocephalic and atraumatic. Cardiovascular: Rate and Rhythm: Normal rate and regular rhythm. Pulses: Normal pulses. Heart sounds: Normal heart sounds. No murmur heard. Pulmonary: Effort: Pulmonary effort is normal. No respiratory distress. Breath sounds: Normal breath sounds. No wheezing, rhonchi or rales. Abdominal: General: Abdomen is flat. Palpations: Abdomen is soft. Skin: General: Skin is warm and dry. Neurological: Mental Status: She is oriented to person, place, and time. Psychiatric: Mood and Affect: Mood normal. Behavior: Behavior normal. Thought Content: Thought content normal. Judgment: Judgment normal. Assessment and Plan 1. Non-recurrent acute suppurative otitis media of left ear without spontaneous rupture of tympanic membrane (H66.002) - Left ear shows signs of inflammation and infection on otoscopic examination. - Patient has a known allergy to penicillin and amoxicillin. - Initiated levofloxacin, which is considered safe during based on available (more content not included)... [facility] 08-07-2024 Note HNO ID: [id number] Author: TIANA CARPENTER MD Service: ? Author Type: Physician Type: Progress Notes Filed: 08/07/2024 09:22 Note Text: The appointment was cancelled for this patient. Tinaa Carpenter MD [facility] 08-06-2024 Telephone encounter Note No Show Documentation Gabe M Viera no showed for an appointment on 08/06/2024 with Tiana Carpenter MD at 9:00 AM. She was scheduled for VIRTUAL NEW . I called and spoke with the patient regarding her missed appointment. Gabe stated the reason that she missed her appointment was because forgot about appointment . Resources discussed/offered to patient: RESSCHEDULE No show determined to be fault of patient: Yes This is the patients first no show in the last 12 months. Patient was rescheduled for NOT AT THIS TIME. Letter mailed : Yes Is this the Third or Fourth No Show? No Qasim Worrell August 06, 2024 11:02 AM [facility] 08-06-2024 Miscellaneous Notes No Show Documentation Gabe Xavier Viera no showed for an appointment on 08/06/2024 with Tiana Carpenter MD at 9:00 AM. She was scheduled for VIRTUAL NEW . I called and spoke with the patient regarding her missed appointment. Gabe stated the reason that she missed her appointment was because forgot about appointment . Resources discussed/offered to patient: RESSCHEDULE No show determined to be fault of patient: Yes This is the patients first no show in the last 12 months. Patient was rescheduled for NOT AT THIS TIME. Letter mailed : Yes Is this the Third or Fourth No Show? No Qasim Worrell August 06, 2024 11:02 AM documented in this encounter [facility] 07-31-2024 Note HNO ID: [id number] Author: FREDA SANTILLAN APRN.MED DIR Service: ? 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 INITIAL OB ASSESSMENT HPI: Beth is a 28 year old White Female here to establish Obstetrical Care. Patient's last menstrual period was 06/08/2024 (approximate). from OB Dating Form. was unplanned but accepted Complaints: Irritating vaginal discharge, cramping OB History Gravida1 Para0 Term0 Preterm0 AB0 Living0 SAB0 IAB0 Ectopic0 Multiple0 Live Births0 Previous history: Prior : never History of 4th degree laceration: NA History of shoulder dystocia: No History of Hypertensive disorders including pre-eclampsia or gestational hypertension: No History of gestational diabetes: NA Patient's Risk Screening for delivery: Have you had a prior alfaor between 20w and 36w6d? No How many pregnancies have you had before? 0 Did you have a previous baby with a GBS Infection? No Please select all that apply for any prior : N/A MEDICAL/PSYCHOSOCIAL HISTORY: History of hemorrhage or bleeding concerns: No Thyroid Disease: No History of chronic hypertension: No History of pre-existing diabetes: No No results found for: ABORHD No weight on file for this encounter. Last Pap: 08/09/2021 normal History of abnormal pap: No Prior treatment for cervical dysplasia: none. Last HPV: never done History of STDs: None Partner History of STDs: None Did you have a partner with Herpes? No Tobacco use: No E-Cigarette/Vaping Use: Yes Caffeine use: Yes Drug use: No Alcohol use: No Multivitamin with Folic acid: Yes Would refuse blood transfusion if medically necessary: No Social Needs: How often does this describe you? I don't have enough money to pay my bills: Sometimes Within the past 12 months, have you worried that your food would run out before you had money to buy more? Never In the past 12 months, has lack of reliable transportation kept you from going to medical appointments or work, or from getting things needed for daily living? Never In the past 12 months, have you had any concerns about having a place to live, or about the condition or quality of your housing? Never Would you like more information on any of the following (please check all that apply)? Not interested Social History: Do you have any history of depression, anxiety, PTSD, or other mood problems? Yes Do you have a history of abuse or trauma that may impact your experience? No Are you currently employed? Yes Depression/Anxiety Screening: denies, admits to symptoms of depression. OB Depression and Anxiety Screening- This Encounter Over the past 2 weeks have you felt down, depressed, or hopeless? Positive - Further Testing Indicated Over the past two weeks, have you felt little interest or pleasure in doing things?? Positive - Further Testing Indicated I have been able to laugh and see the funny side of things. Definitely not so much now I have looked forward with enjoyment to things. Hardly at all I have blamed myself unnecessarily when things went wrong. Not very often I have been anxious or worried for no good reason. Yes, very often I have felt scared or panicky for no good reason. Yes, quite a lot Things have been getting on top of me. No, I have been coping as well as ever I have been so unhappy that I have had difficulty sleeping. Not at all I have felt sad or miserable. Yes, most of the time I have been so unhappy that I have been crying. Yes, quite often The thought of harming myself has occurred to me. Never [place] Depression Scale Total 17 Feeling nervous, anxious or on edge 2-More than half the days Not being able to stop or control worrying 2-More than half the days Anxiety Pre-Screening Total (If >/= 3 additional questions will be reviewed) 4 Worrying too much about different things 3-Nearly every day Trouble relaxing 3-Nearly every day Being so restless that it is hard to sit still 3-Nearly every day Becoming easily annoyed or irritable 3-Nearly every day Feeling afraid, as if something awful might happen 3-Nearly every day Anxiety ([place]) Full Screening Total 19 Genetic Screening: Partner present: No Patient verbalized knowledge of partner family health history: Yes Do you or your partner have any personal or family history of defects not previously discussed: No Do you have history of a complicated by anomaly, genetic condition, or demise: No Preeclampsia Risk Screening: Screening for prevention of preeclampsia: High risk factors: None Moderate risk ractors: Nulliparity OB Risk Screening: Completed, no positive findings documented. Marital Status: Partner: Name: Fred Hubbard Age: 27 Occupation: Not employed Gender: Male (more content not included)... [facility] 07-17-2024 Telephone encounter Note Called patient. Scheduled for viability US and f/u visit with RR on 07/25. Patient reports having a yeast infection. Vaginal itching and thick white discharge. Discussed OTC Monistat 7 day. She has not had any more bleeding since ER visit. Occasional right sided sharp pain continues. Klarissa Beckett RN [facility] 07-17-2024 Miscellaneous Notes Called patient. Scheduled for viability US and f/u visit with RR on 07/25. Patient reports having a yeast infection. Vaginal itching and thick white discharge. Discussed OTC Monistat 7 day. She has not had any more bleeding since ER visit. Occasional right sided sharp pain continues. Klarissa Beckett RN I would recommend a visit in office prior to NOB due to cramping and spotting. I would recommend a formal ultrasound here as well. Next week is fine. Sunitha Aguilar APRN.CNM She doesn't have an appointment until her NOB on 08/01/24. Does she need one this week? Rita Chairez RN We can discuss ordering HCG levels at her appointment. Thank you! Sunitha Aguilar APRN.CNM Patient did go to [facility] ER on 07/15/24. She did have labs and u/s. All records available under care everywhere. Copied some below. [facility] she get the [facility]? This order was previously placed. US/Transvaginal w/Preg US IMPRESSION: Early intrauterine gestational sac with a yolk sac but no identifiable pole. Differential diagnosis includes an early intrauterine , or incomplete . Serial beta HCG measurements is recommended. [facility] hcg Result: HCG ( test) Ql Ordered By: Jacinto Abarca on 07-15-2024 Human Chorionic Gonadotropin, Quant 5000 mIU/mL Previous [facility] results: hCG Quantitative, Blood (mIU/mL) Date Value 07/10/2024 1,045.0 07/07/2024 420.4 Patient called and notified of below instructions. Patient states she is actually already on her way to [place] ED. Patient states she has not had an increase in bleeding or pain/cramping since last call, but she is just feeling anxious and wants to be evaluated. Patient will call office tomorrow with update and schedule ultrasound if not done in ED. Will look for ER reports from [facility] tomorrow. Cristobal Smiley RN Formal ultrasound soonest appointment please. Brooklyn Baugh APRN.CNM Patient called back. Are you wanting patient to have a formal US or bedside? No pelvic US openings until . Also need HCG orders signed. Klarissa Beckett RN Left message to call office. Please file pended HCG quant level. Cristobal Smiley RN I can order another hCG and pelvic ultrasound. Can she have an US and follow up visit tomorrow due to no prior US and confirm IUP. Brooklyn Villalpando APRN.CNM Patient calling with concerns of cramping and vaginal spotting in early . Patient states she had some spotting in her underwear earlier today that was light red. Patient states she just used the bathroom and did not have any bleeding when she wiped. Patient was seen in the office on 07/10 for a ER follow up at [place] on 07/07. When she went to the ER she did not have any bleeding only cramping. Currently rating abdominal cramping at a 4-5 out of 10, occasional stabbing. LMP was 06/08, making her approximately 5w2d. blee hCG Quantitative, Blood (mIU/mL) Date Value 07/10/2024 1,045.0 07/07/2024 420.4 Cristobal Smiley RN documented in this encounter [facility] 07-17-2024 Telephone encounter Note I would recommend a visit in office prior to NOB due to cramping and spotting. I would recommend a formal ultrasound here as well. Next week is fine. Sunitha Aguilar APRN.CNM T [facility] Work Phone: 07-17-2024 Telephone encounter Note She doesn't have an appointment until her NOB on 08/01/24. Does she need one this week? Rita Chairez RN [facility] 07-17-2024 Telephone encounter Note We can discuss ordering HCG levels at her appointment. Thank you! Sunitha Aguilar APRN.CNM T [facility] 07-17-2024 Telephone encounter Note Patient did go to [facility] ER on 07/15/24. She did have labs and u/s. All records available under care everywhere. Copied some below. Should she get the [facility]? This order was previously placed. US/Transvaginal w/Preg US IMPRESSION: Early intrauterine gestational sac with a yolk sac but no identifiable pole. Differential diagnosis includes an early intrauterine , or incomplete . Serial beta HCG measurements is recommended. [facility] hcg Result: HCG ( test) Ql Ordered By: Jacinto Abarca on 07-15-2024 Human Chorionic Gonadotropin, Quant 5000 mIU/mL Previous [facility] results: hCG Quantitative, Blood (mIU/mL) Date Value 07/10/2024 1,045.0 07/07/2024 420.4 [facility] 07-15-2024 Discharge summary [facility] 07-15-2024 Radiology Diagnostic study note [facility] Imaging Services [address] [place] [address] [id number] Transvaginal w/Preg US MR#: [id number] Acct: [id number] Name: GABE VIERA Rep #: [id number] : 1995 F 28 From: Luan Jean MD PCP: Care Physician,No Primary Status: PRE ER Study:Transvaginal w/Preg US Date of Exam: 07/15/24 Exam# [id number] Ordering Dr: Charo Abarca DO PROCEDURE: TRANSVAGINAL W/PREG US 07/15/2024 REASON FOR EXAM: ABD PAIN EARLY TECHNIQUE: Transvaginal FINDINGS: Comments: Number of Gestational Sacs: 1 Gestational Sac Shape: Normal Number of Fetuses: 1 Heart Rate: (average) Survey of Visible Anatomic Structures: Grossly unremarkable for gestational age. Nasal Bones: Yolk Sac: Present and unremarkable. Placenta: Presently not well-visualized Amniotic Fluid Volume: Subjectively normal for gestational age. Uterine Abnormalities: Maternal uterus is unremarkable. Ovaries / Adnexa: Both maternal ovaries are visualized and unremarkable. DIMENSIONS: Parameter Measurement / EGA [place] Rump Length: Not visualized/ Gestational Sac: 7 mm/5 weeks 3 days Yolk Sac: 2 mm/ ESTIMATED GESTATIONAL AGE: By Ultrasound: 5 weeks 3 days By LMP: 5 weeks 2 days ESTIMATED DATE OF DELIVERY: By Ultrasound: 03/14/2025 By LMP: 03/15/2025 US/Transvaginal w/Preg US IMPRESSION: Early intrauterine gestational sac with a yolk sac but no identifiable pole. Differential diagnosis includes an early intrauterine , or incomplete . Serial beta HCG measurements isrecommended. Reading Location: [id number] CC: Dr. Jacinto Abarca, DO; No Primary Care Physician ~ Salesperson Shoes: Signed [facility] 07-15-2024 Telephone encounter Note Patient called and notified of below instructions. Patient states she is actually already on her way to [place] ED. Patient states she has not had an increase in bleeding or pain/cramping since last call, but she is just feeling anxious and wants to be evaluated. Patient will call office tomorrow with update and schedule ultrasound if not done in ED. Will look for ER reports from [facility] tomorrow. Cristobal Smiley RN [facility] 07-15-2024 Telephone encounter Note Formal ultrasound soonest appointment please. Thanks, Brooklyn Villalpando APRN.CNM [facility] 07-15-2024 Telephone encounter Note Patient called back. Are you wanting patient to have a formal US or bedside? No pelvic US openings until . Also need HCG orders signed. Klarissa Beckett RN [facility] 07-15-2024 Telephone encounter Note Left message to call office. Please file pended HCG quant level. Cristobal Smiley RN [facility] 07-15-2024 Telephone encounter Note I can order another hCG and pelvic ultrasound. Can she have an US and follow up visit tomorrow due to no prior US and confirm IUP. Brooklyn Villalpando APRN.CNM [facility] 07-15-2024 Discharge summary Note Date/Time July 15, 2024 8:55pm [facility] Medical Records Department [address] [place] [address] Emergency Department Summary 07/15/24 MR#: [id number] Acct: [id number] Name: GABE VIERA Rep #:[id number] : 1995 28 From: Jacinto Zambrano PCP: LAYLA Bartholomew Status:REG E R Location: ED ADDENDUM by Dr. Jacinto Abarca DO on 07/15/24 at 2055 Medical decision making narrative: HISTORY OF PRESENT ILLNESS: Chief complaint: Abdominal pain, early 28-year-old female who is a G1, P0 presents with concern for abdominal pain in early . She did note some spotting several days ago but denies any bleeding. Denies any STDs. Denies abdominal pain now but does note cramping throughout the last 5 weeks. Notes nausea and breast tenderness as well. Denies vomiting. Denies history abdominal surgeries. Denies urinary complaints. Denies changes in bowel habits. REVIEW OF SYSTEMS: Pertinent positives: Abdominal pain, vaginal spotting Pertinent negatives: Vomiting PHYSICAL EXAM: Nursing triage notes reviewed, Vital signs reviewed Constitutional: please see mdm HENT: MMM Eyes: Pupils equal round and reactive to light, Extraocular muscles intact Neck: No stridor, no JVD, full neck ROM Lungs: Clear to auscultation, No wheezing or rales. No increased work of breathing, no conversational dyspnea, no accessory muscle use, no nasal flaring. No respiratory distress noted Heart: Regular rate and rhythm, No murmurs, No rubs and No gallops, 2+ distal pulses (radial, femoral, posterior tibial) in all extremities Abdomen: Soft, there is no tenderness, rigidity, rebound or guarding, no obviousperitoneal signs, no palpable pulsatile abdominal masses, no auscultated abdominal bruit : No CVAT Extremities: No edema Neuro: No new focal neurological deficits, cranial nerves II through XII intact,5/5 strength in all present extremities. Intact sensation to light touch in all present extremities, 2+ reflexes bilateral patella tendons. Skin: No rash or lesions noted MEDICAL DECISION MAKING: Chief Complaint: please see HPI External records reviewed: Reviewed prior imaging studies Factors affecting care: none Social determinants of health: none History obtained from others: none Consults: OBGYN (Dr. Herzog) - discussed Rhogam. Noted there is likely no benefit at this gestational age. Recommended against Rhogam at this time. MDM Narrative: The patient was initially hemodynamically stable, afebrile and nontoxic-appearing. Abdominal exam was benign I considered the following differential diagnosis: Early intrauterine ,ectopic , miscarriage I obtained a ultrasound and labs ALL IMAGES (IF OBTAINED) HAVE BEEN PERSONALLY REVIEWED AND INTERPRETED BY MYSELF. CBC with no leukocytosis, no anemia or thrombocytopenia CMP without evidence of acute kidney injury, significant electrolyte abnormality, anion gap to suggest end organ hypo-perfusion, no evidence of metabolic acidosis with a normal bicarbonate, no evidence of hepatobiliary obstructive pathology. Lipase is wnl indicating no pancreatic inflammation. Serum test Transvaginal ultrasound showed findings consistent with likely intrauterine although is not definitive. Patient would need repeat outpatient quant and ultrasound. Discussed this with patient who agreed to follow with DIAPER FOLDER. Strict return precautions were discussed. Follow-up was arranged. The patient and/or family, caregivers express understanding. The patient and/orfamily, caregivers agrees with the plan. Shared decision making: I will have a discussion with the patient and or visitors regarding risk/benefits of further testing or admission. They will be made aware of of the risk/benefits inherent in this decision they will be given the opportunity to voice understanding. Total critical care time today provided was at least 0 minutes. This excludes separately billable procedures. Critical care time (if documented) is secondary to the patient having high probability of clinically significant/life threatening deterioration in the patient's condition which required my urgent intervention. Impression: 1. Abdominal pain 2. First trimester Dispo: Discharge home This note was generated with Klick[employer] dictation software. It may contain incorrectwords, spelling, and punctuation that were not noted in review of the chart prior to signing. 07/15/242054<Electronically signed by Jacinto Abarca DO> Cosigner Signature (if applicable): cc: LAYLA Morgan ~* Signed HPI History of Present Illness Chief Complaint: Abd Pain [facility] Medical History (Updated 12/06/22 @ 15:33 by Amparo CHRISTIANSON, PA) Contact with and (suspected) exposure to other viral communicable diseases Acute streptococcal pharyngitis COVID-19 URI (upper respiratory infection) Home Medications ?Medication ?Instructions ?Recorded ?Last Taken ?Type dwarcrorwvlybxb-njjogwpesowxehe-AZ 10 ml PO Q4H PRN Unknown History 2 mg-30 mg-10 mg/5 mL oral syrup clindamycin HCl 300 mg capsule 300 mg PO Q8H 12/06/22 Unknown History methylprednisolone 4 mg tablets in See Rx Instructions PO PER PKG DIR 12/06/22 Unknown Rx a dose pack (Medrol (Landry)) #21 tabs norgestimate 0.25 mg-ethinyl 1 tab PO DAILY 12/06/22 U nknown History estradiol 35 mcg tablet (Genesee-Linyah) Allergy/AdvReac Type Severity Reaction Status Date / Time amoxicillin Allergy Angioedema Verified 12/06/22 14:39 Penicillins (PCN) Allergy Angioedema Verified 12/06/22 14:39 Social History (Updated 12/06/22 @ 15:38 by Brooklyn Bell) Smoking Status: Current every day smoker tobacco type: e-cigarettes alcohol intake: never EXAM Physical Exam Const Vital Signs: 07/15/24 16:36 07/15/24 18:59 Temperature 97.7 F L Temperature Source Temporal Pulse Rate 82 67 Respiratory Rate 19 H 14 Blood Pressure 120/60 100/63 Blood Pressure Mean 80 75 Pulse Ox 99 100 Oxygen Delivery Method Room Air Room Air MDM MDM MDM Narrative Medical decision making narrative: HISTORY OF PRESENT ILLNESS: Chief complaint: Abdominal pain, early 28-year-old female who is a G1, P0 presents with concern for abdominal pain in early . She did note some spotting several days ago but denies any bleeding. Denies any STDs. Denies abdominal pain now but does note cramping throughout the last 5 weeks. Notes nausea and breast tenderness as well. Denies vomiting. Denies history abdominal surgeries. Denies urinary complaints. Denies changes in bowel habits. REVIEW OF SYSTEMS: Pertinent positives: Abdominal pain, vaginal spotting Pertinent negatives: Vomiting PHYSICAL EXAM: Nursing triage notes reviewed, Vital signs reviewed Constitutional: please see mdm HENT: MMM Eyes: Pupils equal round and reactive to light, Extraocular muscles intact Neck: No stridor, no JVD, full neck ROM Lungs: Clear to auscultation, No wheezing or rales. No increased work of breathing, no conversational dyspnea, no accessory muscle use, no nasal flaring. No respiratory distress noted Heart: Regular rate and rhythm, No murmurs, No rubs and No gallops, 2+ distal pulses (radial, femoral, posterior tibial) in all extremities Abdomen: Soft, there is no tenderness, rigidity, rebound or guarding, no obviousperitoneal signs, no palpable pulsatile abdominal masses, no auscultated abdominal bruit : No CVAT Extremities: No edema Neuro: No new focal neurological deficits, cranial nerves II through XII intact,5/5 strength in all present extremities. Intact sensation to light touch in all present extremities, 2+ reflexes bilateral patella tendons. Skin: No rash or lesions noted MEDICAL DECISION MAKING: Chief Complaint: please see HPI External records reviewed: Reviewed prior imaging studies Factors affecting care: none Social determinants of health: none History obtained from others: none Consults: none [facility] Narrative: The patient was initially hemodynamically stable, afebrile and nontoxic-appearing. Abdominal exam was benign I considered the following differential diagnosis: Early intrauterine ,ectopic , miscarriage I obtained a ultrasound and labs ALL IMAGES (IF OBTAINED) HAVE BEEN PERSONALLY REVIEWED AND INTERPRETED BY MYSELF. CBC with no leukocytosis, no anemia or thrombocytopenia CMP without evidence of acute kidney injury, significant electrolyte abnormality, anion gap to suggest end organ hypo-perfusion, no evidence of metabolic acidosis with a normal bicarbonate, no evidence of hepatobiliary obstructive pathology. Lipase is wnl indicating no pancreatic inflammation. Serum test Transvaginal ultrasound showed findings consistent with likely intrauterine although is not definitive. Patient would need repeat outpatient quant and ultrasound. Discussed this with patient who agreed to follow with DIAPER FOLDER. Strict return precautions were discussed. Follow-up was arranged. The patient and/or family, caregivers express understanding. The patient and/orfamily, caregivers agrees with the plan. Shared decision making: I will have a discussion with the patient and or visitors regarding risk/benefits of further testing or admission. They will be made aware of of the risk/benefits inherent in this decision they will be given the opportunity to voice understanding. Total critical care time today provided was at least 0 minutes. This excludes separately billable procedures. Critical care time (if documented) is secondary to the patient having high probability of clinically significant/life threatening deterioration in the patient's condition which required my urgent intervention. Impression: 1. Abdominal pain 2. First trimester Dispo: Discharge home This note was generated with Klick[employer]ru dictation software. It may contain incorrectwords, spelling, and punctuation that were not noted in review of the chart prior to signing. Lab Data Labs: Laboratory Results - last 24 hr 07/15/24 16:45 WBC 9.8 RBC 4.23 Hgb 13.5 Hct 39.4 MCV 93.1 MCH 31.9 MCHC 34.3 RDW Std Deviation 45.8 H RDW Coeff of Jodi 13.3 Plt Count 277 MPV 9.8 Immature Gran % (Auto) 0.400 Neut % (Auto) 63.8 Lymph % (Auto) 27.6 [place] % (Auto) 6.7 Eos % (Auto) 1.0 Baso % (Auto) 0.5 Absolute Neuts (auto) 6.2 Absolute Lymphs (auto) 2.69 Nucleated RBC % 0 Sodium 139 Potassium 4.0 Chloride 105 Carbon Dioxide 23.8 Anion Gap 11 BUN 5 Creatinine 0.90 Estim Creat Clear Calc 89.21 Est GFR (MDRD) Non-Af 91 BUN/Creatinine Ratio 5.7 L Glucose 55 L Calcium 9.3 Total Bilirubin 1.02 AST 13 ALT 7 Alkaline Phosphatase 94 Total Protein 7.4 Albumin 4.3 Globulin 3.2 Albumin/Globulin Ratio 1.4 Lipase 32 Serum , Qual POSITIVE H Radiography Diagnostic Testing: Clinical Impression(s) from Imaging Studies Obstetrics Ultrasound 07/15/24 17:36 IMPRESSION: Early intrauterine gestational sac with a yolk sac but no identifiable pole. Differential diagnosis includes an early intrauterine , or incomplete . Serial beta HCG measurements isrecommended. Reading Location: [id number] Discharge Plan Triage Chief Complaint: Abd Pain ED Provider: Jacinto Abarca Dx/Rx/DC Orders Prescriptions: No Action sbsoltygwtzdcbw-gfhhjiqfd-VB 2-30-10 mg/5 mL syrup 10 ml PO Q4H PRN Patient Comments: take TEN ml BY MOUTH EVERY 4 HOURS BY MOUTH NEEDED FOR 5 DAYS clindamycin HCl 300 mg capsule 300 mg PO Q8H Patient Comments: TAKE 1 CAPSULE BY MOUTH EVERY 8 HOURS FOR 10 DAYS norgestimate-ethinyl estradiol [Genesee-Linyah] 0.25-35 mg-mcg tablet 1 tab PO DAILY Patient Comments: Take 1 tablet by mouth daily. methylprednisolone [Medrol (Landry)] 4 mg tablets,dose pack See Rx Instructions PO PER PKG DIR Qty: 21 0RF Rx Instructions: PO PER PKG DIR Primary Care Provider: Elisabet Morgan NP Referrals: Elisabet Morgan NP, POWER GRADER OPERATOR-C [Primary Care Provider] - Print Language: Senegalese What to do if you have Problems For any increased pain, shortness of breath, bleeding, nausea or vomiting, chestpain, or any unexpected problems, contact your Primary Care Provider. Call [facility] ([phone]) or report to the closest Emergency Room. Call 911 if necessary. 07/15/241921 <Electronically signed by Jacinto Abarca DO> Cosigner Signature (if applicable): CC: POWER GRADER OPERATOR-C Elisabet Morgan ~ Signed [facility] Work Phone: [phone]) 934-626804-07-2025 Telephone encounter Note* Telephone Encounter - Cristobal Smiley RN - 07/15/2024 1:53 PM EDT Patient calling with concerns of cramping and vaginal spotting in early . Patient states she had some spotting in her underwear earlier today that was light red. Patient states she just usedthe bathroom and did not have any bleeding when she wiped. Patient was seen in the office on 07/10 for a ER follow up at [place] on 07/07. When she went to the ER she did not have any bleeding only cramping. Currently rating abdominal cramping at a 4-5 out of 10, occasional stabbing. LMP was 3/1, making her approximately 5w2d. blee hCG Quantitative, Blood (mIU/mL) Date Value 07/10/2024 1,045.0 07/07/2024 420.4 Cristobal Smiley RN [facility]04-02-2025 History of Present illness Narrative* Jose Reese MD - 07/10/2024 11:10 AM EDT Gabe Viera is a 28 year old female who presents for problem visit follow up [place], Emergency Room visit on 07/07/2024 for reported vaginal cramping requested additional Hcg lab order, last Hcg 07/07/2024 420.4. HPI:Patient see3n at [place] ER to confirm Quant. BHCG 420 Asked to repeat BHCG in 48 hrs and presents today for lab. Reports nausea w/o emesis and breast tenderness. 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: Sexual Activity: Yes; No partner data on record Contraception: Condom PAST MEDICAL HISTORY Diagnosis Date Anxiety Asthma Bronchitis Depression Personality disorder (HCC) PAST SURGICAL HISTORY Procedure Laterality Date NONE FAMILY HISTORY Problem Relation Age of Onset No Known Problems Mother No Known Problems Father Diabetes Maternal Grandmother Ovarian cancer Paternal Grandmother Diabetes Other No Known Problems Half-sister No Known Problems Half-sister No Known Problems Half-sister No Known Problems Half-sister No Known Problems Half-brother Social History Tobacco Use Smoking status: Former Current packs/day: 1.00 Types: Cigarettes Smokeless tobacco: Never Vaping Use Vaping status: current everyday user Substances: Nicotine Substance Use Topics Alcohol use: No Drug use: No Current Outpatient Medications Medication Sig Vitamin w/ Iron (PNV NO. 72, W/ IRON,) 27 mg iron- 1 mg Take 1 tablet by mouth once daily. No current facility-administered medications for this visit. Allergies As of Date: 07/10/2024 Allergen Noted Reaction AMOXICILLIN 07/21/2014 Swelling PENICILLINS 07/21/2014 Swelling Fully Assessed 07/07/2024 REVIEW OF SYSTEMS Abdomen: No bloating, early satiety, indigestion, or increased flatulence. No abdominal pain, nausea, vomiting, diarrhea, or constipation. Bladder: No dysuria, gross hematuria, urinary frequency, urinary urgency, or incontinence. Breast: No breast lumps, nipple d/c, overlying skin changes, redness or skin retraction. Expanded ROS: N/A Allergies and current medication updated:Yes SENSITIVE EXAM: Sensitive exam not performed. EXAM: LMP 06/14/2024 GENERAL: pleasant, female in no apparent distress ASSESSMENT AND PLAN: Early confirm viability and appropriate rise in BHCG Assessment & Plan 4 weeks gestation of (HCC) Orders: HCG QUANTITATIVE; Future confirm appropriate rise in BHCG and f/u for NOB ftft> 30 min Jose Reese MD documented [facility]25 NoteHNO ID: [id number] Author: JSOE REESE MD Service: ? Author Type: Physician Type: Progress Notes Filed: 07/10/2024 11:34 Note Text: Gabe Viera is a 28 year old female who presents for problem visit follow up [place], Emergency Room visit on 07/07/2024 for reported vaginal cramping requested additional Hcg lab order, last Hcg 07/07/2024 420.4. HPI:Patient see3n at [place] ER to confirm Quant. BHCG 420 Asked to repeat BHCG in 48 hrs and presents today for lab. Reports nausea w/o emesis and breast tenderness. 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: Sexual Activity: Yes; No partner data on record Contraception: Condom PAST MEDICAL HISTORY Diagnosis Date Anxiety Asthma Bronchitis Depression Personality disorder (HCC) PAST SURGICAL HISTORY Procedure Laterality Date NONE FAMILY HISTORY Problem Relation Age of Onset No Known Problems Mother No Known Problems Father Diabetes Maternal Grandmother Ovarian cancer Paternal Grandmother Diabetes Other No Known Problems Half-sister No Known Problems Half-sister No Known Problems Half-sister No Known Problems Half-sister No Known Problems Half-brother Social History Tobacco Use Smoking status: Former Current packs/day: 1.00 Types: Cigarettes Smokeless tobacco: Never Vaping Use Vaping status: current everyday user Substances: Nicotine Substance Use Topics Alcohol use: No Drug use: No Current Outpatient Medications Medication Sig Vitamin w/ Iron (PNV NO. 72, W/ IRON,) 27 mg iron- 1 mg Take 1 tablet by mouth once daily. No current facility-administered medications for this visit. Allergies As of Date: 07/10/2024 Allergen Noted Reaction AMOXICILLIN 07/21/2014 Swelling PENICILLINS 07/21/2014 Swelling Fully Assessed 07/07/2024 REVIEW OF SYSTEMS Abdomen: No bloating, early satiety, indigestion, or increased flatulence. No abdominal pain, nausea, vomiting, diarrhea, or constipation. Bladder: No dysuria, gross hematuria, urinary frequency, urinary urgency, or incontinence. Breast: No breast lumps, nipple d/c, overlying skin changes, redness or skin retraction. Expanded ROS: N/A Allergies and current medication updated:Yes SENSITIVE EXAM: Sensitive exam not performed. EXAM: LMP 06/14/2024 GENERAL: pleasant, female in no apparent distress ASSESSMENT AND PLAN: Early confirm viability and appropriate rise in BHCG Assessment AND Plan 4 weeks gestation of (HCC) Orders: HCG QUANTITATIVE; Future confirm appropriate rise in BHCG and f/u for NOB ftft> 30 min Jose Reese, [facility]03-10-[facility]25 NoteHNO ID: [id number] Author: WENDY TREVIZO LPN Service: ? Author Type: LICENSED NURSE Type: Progress Notes Filed: 06/17/2024 15:02 Note Text: ED Follow-Up Note Provider Action / FYI: Call completed by: JAMMIE Patient seen in ED: Out of Network ED Contact made with Patient: Yes The patient was identified by Name and Date of . Discussed Care with: patient Patient was seen in the Emergency Department (ED) Location: [facility] Date: 06/12/2024 Reason for ED Visit: Pleuritic chest pain, acute cough ED Intervention: Labs EKG Chest xray New Medications: Benzonatate 200 mg take 1 capsule by mouth 3 times daily as needed for cough for up to 7 days Diazepam 5 mg tablet take 1 tablet by mouth every 8 hours as needed for muscle spasms for up to 3 days Ibuprofen 600 mg tablet take 1 tablet daily by mouth every 8 hours as needed for mild pain for up to 7 days Medication Changes: None Does patient understand medication changes: N/A Can patient afford medication changes: N/A Patient educated on worsening symptoms and when and where to seek additional care: No Patient Education Provided including treatment plan and new orders. Patient provided with appropriate counseling: Yes Pt states that she is doing better. Pt does not wish to schedule at this time. Wendy [facility]PN[facility] History of Present illness Narrative* Wendy Trevizo LPN - 06/17/2024 2:54 PM EDT ED Follow-Up Note Provider Action / FYI: Call completed by: JAMMIE Patient seen in ED: Out of Network ED Contact made with Patient: Yes The patient was identified by Name and Date of . Discussed Care with: patient Patient was seen in the Emergency Department (ED) Location: [facility] Date: 06/12/2024 Reason for ED Visit: Pleuritic chest pain, acute cough ED Intervention: Labs EKG Chest xray New Medications: Benzonatate 200 mg take 1 capsule by mouth 3 times daily as needed for cough for up to 7 days Diazepam 5 mg tablet take 1 tablet by mouth every 8 hours as needed for muscle spasms for up to 3 days Ibuprofen 600 mg tablet take 1 tablet daily by mouth every 8 hours as needed for mild pain for up to 7 days Medication Changes: None Does patient understand medication changes: N/A Can patient afford medication changes: N/A Patient educated on worsening symptoms and when and where to seek additional care: No Patient Education Provided including treatment plan and new orders. Patient provided with appropriate counseling: Yes Pt states that she is doing better. Pt does not wish to schedule at this time. Wendy Trevizo LPN documented in this encounterGood [facility]itan [facility]03-10-2025 NotePatient Outreach (AGFAMPLE) VIERAGABE Nayak ([id number]) 1995 F ONOFRE Date Time Provider Department 06/17/24 ELISABET MORGAN During your visit today, we recorded the following information about you: Wendy Trevizo LPN 06/17/2024 3:02 PM Signed ED Follow-Up Note Provider Action / FYI: Call completed by: JAMMIE Patient seen in ED: Out of Network ED Contact made with Patient: Yes The patient was identified by Name and Date of . Discussed Care with: patient Patient was seen in the Emergency Department (ED) Location: [facility] Date: 06/12/2024 Reason for ED Visit: Pleuritic chest pain, acute cough ED Intervention: Labs EKG Chest xray New Medications: Benzonatate 200 mg take 1 capsule by mouth 3 times daily as needed for cough for up to 7 days Diazepam 5 mg tablet take 1 tablet by mouth every 8 hours as needed for muscle spasms for up to 3 days Ibuprofen 600 mg tablet take 1 tablet daily by mouth every 8 hours as needed for mild pain for up to 7 days Medication Changes: None Does patient understand medication changes: N/A Can patient afford medication changes: N/A Patient educated on worsening symptoms and when and where to seek additional care: No Patient Education Provided including treatment plan and new orders. Patient provided with appropriate counseling: Yes Pt states that she is doing better. Pt does not wish to schedule at this time. Wendy Trevizo LPN Allergies As of Date: 06/17/2024 Noted Allergy Reaction AMOXICILLIN 07/21/2014 7 - Swelling PENICILLINS 07/21/2014 7 - Swelling Date Reviewed: 04/30/2024 Reviewed by: Carolynn Humphrey DO - Fully Assessed Reason for Visit: ED Follow-up [821] Cmt: [facility] ED 06/12/2024 Meds Comments as of 12/14/2015: Pt states she takes control pill, unable to recall which one Problem List As Of Date 06/17/2024 Noted Resolved Obesity, Class I, BMI 30-34.9 [E66.811] 07/12/2021 Bacterial vaginosis [N76.0, B96.89] 07/12/2021 Encounter Status:Closed by [facility] on [facility]/17/24[facility] Discharge instructions* Discharge Instructions* Keyona Conrad MD - 06/12/2024 7:45 PM EST You have been seen in the Emergency Department for with chest wall pain especially when you cough. Your chest x-ray shows no pneumonia, both your troponins are negative, your risk of cardiac disease in the next 6 weeks is less than 1.7%. Your D-dimer is also negative so the risk of a pulmonary embol ism/blood clot is less than 2% and your risk of a dissection or tear in the aorta is less than 04/999. Antibiotics are not recommended as there is no pneumonia. This appears to be more musculoskeletal pain/muscle spasm on your chest wall instead. -I prescribed you Tessalon to take as needed for cough -I prescribed Valium to take as needed for muscle spasm. Do not drink alcohol or drive a car while on Valium as it will make you sleepy -I have prescribed you ibuprofen to take as needed for pain. Take this with food to avoid stomach upset After a visit to the Emergency Department, follow-up is important. You should follow-up with your primary care provider by the end of this week to ensure you are feeling better. Return to the ED if you develop worsening chest pain, coughing up blood, shortness of breath, fevers, chills, you feel weak feel faint or pass out, decreased tolerance to exercise, or if any new signs, symptoms, or concerns arise. * Attachments The following attachments cannot be sent through Care Everywhere. * Pleuritic Chest Pain Discharge Instructions ([place]e) * Cough, Adult ED ([place]e) * Muscle Spasm ED ([place]e) documented in this [facility]03-05-2025 Emergency department Note* Keyona Conrad MD - 06/12/2024 2:43 PM EST Images from the original note were not included. EMERGENCY DEPARTMENT ENCOUNTER Pt Name: Gabe Viera Birthdate 1995 Date of evaluation: 06/12/2024 ED Provider: Keyona Conrad MD CHIEF COMPLAINT Chief Complaint Patient presents with Chest Pain HISTORY OF PRESENT ILLNESS (Location/Symptom, Timing/Onset, Context/Setting, Quality, Duration, Modifying Factors, Severity) Note limiting factors. I wore appropriate PPE for the entirety of this encounter. HPI Gabe Viera is a 28 y.o. who presents to the emergency department with pleuritic chest pain Patient has a history of cigarette smoking which she is gradually replacing with vaping. Drinks alcohol. 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 Patient says that for the last3 days she has had pleuritic chest tightness, only lasts a few seconds at a time and radiates down her right arm. She gets lightheaded occasionally when this happens but denies any palpitations. She has no focal numbness or focal weakness in the arms or legs no slurred speech no facial droop no blurry vision no double vision no syncope no presyncope. She also has a cough and has been short of breath for 3 days. Her has a pneumonia and he is sitting right next to her with no mask on. Patient denies any fevers or chills. Patient says the chest tightness can happen at random, for no apparent reason. It is not associated with exertion, it is only rarely associated with coughing. Patient denies any recent travel or recent immobility. She has no leg pain orthopnea or paroxysmal nocturnal dyspnea. She has no calf pain she has no history of DVT or PE. She has no history of coronary artery disease and there is no family history of early CAD either. She denies any hemoptysis, denies anywheezing. Denies any fevers. She is not tachycardic or tachypneic or hypoxic. Nursing Notes were reviewed. Limitations to history: None Outside historians: None REVIEW OF SYSTEMS Review of Systems Pertinent positives and negatives as per HPI PAST MEDICAL HISTORY Past Medical History: Diagnosis Date Depression SURGICAL HISTORY History reviewed. No pertinent surgical history. CURRENT MEDICATIONS Previous Medications NORGESTIMATE-ETHINYL ESTRADIOL (SPRINTEC 28) 0.25-35 MG-MCG TABLET Take 1 tablet by mouth daily. ALLERGIES Penicillins FAMILY HISTORY Family History Problem Relation Name Age of Onset Ovarian cancer Paternal Grandmother Breast cancer Paternal Great-Grandmother Colon cancer Neg Hx Uterine cancer Neg Hx SOCIAL HISTORY Social History Socioeconomic History Marital status: Single Tobacco Use Smoking status: Every Day Current packs/day: 1.00 Types: Cigarettes Smokeless tobacco: Never Vaping Use Vaping status: Every Day Substance and Sexual Activity Alcohol use: Yes Drug use: Never Sexual activity: Yes Social Drivers of Health Financial Resource Strain: Low Risk (10/25/2022) Overall Financial Resource Strain (CARDIA) Difficulty of Paying Living Expenses: Not very hard Food Insecurity: No Food Insecurity (10/25/2022) Hunger Vital Sign Worried About Running Out of Food in the Last Year: Never true Ran Out of Food in the Last Year: Never true Transportation Needs: No Transportation Needs (10/25/2022) PRAPARE - Transportation Lack of Transportation (Medical): No Lack of Transportation (Non-Medical): No Physical Activity: Inactive (10/25/2022) Exercise Vital Sign Days of Exercise per Week: 0 days Minutes of Exercise per Session: 0 min Stress: No Stress Concern Present (10/25/2022) [employer] - Occupational Stress Questionnaire Feeling of Stress : Not at all Intimate Partner Violence: Not At Risk (10/25/2022) Humiliation, Afraid, Rape, and Kick questionnaire Fear of Current or Ex-Partner: No Emotionally Abused: No Physically Abused: No Sexually Abused: No Housing Stability: Low Risk (10/25/2022) Housing Stability Vital Sign Unable to Pay for Housing in the Last Year: No Number of Places Lived in the Last Year: 1 Unstable Housing in the Last Year: No PHYSICAL EXAM ED Triage Vitals [06/12/24 1450] Temp Heart Rate Resp BP 36.6 C (97.8 F) 65 14 (!) 151/71 SpO2 Temp Source Heart Rate Source Patient Position 98 % Oral -- -- BP Location FiO2 (%) -- -- Physical Exam General: WDWN adult in NAD. Non-toxic appearing HENT: Head NCAT, EOMI with no erythema, swelling or discharge. Normal visual acuity bilaterally. Nodiplopia bilaterally. No nystagmus bilaterally. No visual field cuts on confrontational testing bilaterally oropharyngeal mucus membranes moist, pink, no exudate Neck: Full ROM, supple, no rigidity Cardio: RRR, nl s1 s2 no m/r/g, extremities warm, dry, well perfused, non- edematous, 2+ bilateral radial pulses, 2+ bilateral carotid pulses, 2+ bilateral femoral pulses, 2+ bilateral DP pulses Lungs: Diminished lung sounds bilateral bases but otherwise no wheezes, rales, rhonchi, normal workof breathing. Rare dry cough on exam. No cyanosis no retractions. SaO2 90% on room air. Of note, patient says that her right lateral chest wall hurts when she takes a deep breath Abdomen: Soft, NT, ND, non-rigid, BS x 4 normal, no flank pain to palpation bilaterally, no CVA tenderness to palpation bilaterally MSK: Palpation of right anterior chest wall and right lateral chest wall reproduces the chest discomfort. Chest tightness appears to be spastic and intermittent, lasting only about 1 to 2 seconds at a time. No subcutaneous emphysema or crepitus in the chest wall Left anterior chest wall and left lateral chest wall are not tender to palpation No midline cervical thoracic or lumbar spine pain to palpation Bilateral lower extremities soft nontender nonerythematous nonindurated. 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 NIHSS = 0. Psych: Simultaneously has anxiety and depressed affect. Verbally consolable and redirectable. Not responding to internal stimuli, not psychotic DIAGNOSTIC RESULTS RADIOLOGY (Per Emergency Physician): Interpretation per the Radiologist below, if available at the time of this note: XR chest 2 views Final Result No focal consolidation or pulmonary edema. Report Dictated on Electronically Signed By: Rene Ruiz MD Electronically Signed Date/Time: 06/12/2024 4:41 PM EST LABS: Labs Reviewed COMPREHENSIVE METABOLIC PANEL - Abnormal Result Value SODIUM 142 POTASSIUM 3.5 CHLORIDE 110 (*) CARBON DIOXIDE 25 ANION GAP 7 UREA NITROGEN 10 CREATININE 0.75 GLUCOSE 91 CALCIUM 8.8 AST (SGOT) 16 ALT 11 ALKALINE PHOSPHATASE 80 ALBUMIN 3.7 BILIRUBIN, TOTAL 1.9 (*) TOTAL PROTEIN 6.7 eGFR >90.0 SARS-COV-2, FLU A/B, AND RSV COMBO - Normal SARS-CoV-2 Not Detected Respiratory Syncytial Virus Not Detected Influenza A Not Detected Influenza B Not Detected Narrative: Methodology: real-time, RT-PCR The SARS-CoV-2, Flu A/B, and RSV Combo assay is intended for in vitro diagnostic use under the FDA Emergency Use Authorization (EUA). This test has not been FDA cleared or approved. In compliance with this authorization, please visit www.fda.gov/media/613084/download or www.fda.gov/media/658767/download to access the applicable information sheets. D-DIMER,QUANTITATIVE - Normal D-DIMER, INNOVANCE 0.26 Narrative: Innovance D-Dimer values of <0.50 mg/L FEU can be used in combination with a pre-test probability model (e.g. Well's) to exclude pulmonary embolism (PE) disease, as well as an aid in the diagnosisof deep vein thrombosis (DVT). HIGH SENSITIVITY TROPONIN, SERIAL BASELINE - Normal Troponin HS Serial Baseline <3 NT PRO BNP - Normal NT PRO BNP 95 CBC WITH AUTO DIFFERENTIAL - Normal Auto WBC 7.7 RBC 3.92 Hemoglobin 12.2 Hematocrit 35.8 MCV 91.3 MCH 31.1 MCHC 34.1 RDW 13.4 Platelets 255 MPV 9.9 nRBC 0.0 Neutrophils Relative 59.1 Lymphocytes Relative 33.2 Monocytes Relative 5.8 Eosinophils Relative 1.3 Basophils Relative 0.3 Immature Grans % 0.3 Neutrophils Absolute 4.6 Lymphocytes Absolute 2.6 Monocytes Absolute 0.5 Eosinophils Absolute 0.1 Basophils Absolute 0.0 Immature Grans Absolute 0.0 HIGH SENSITIVITY TROPONIN, SERIAL, SECOND TEST - Normal 2h Troponin HS (Serial 2nd Troponin) <3 HCG QUALITATIVE URINE HCG,URINE QUAL Negative Narrative: is the most common reason for HCG in urine, although choriocarcinoma, hydatidiform mole, and certain nontrophoblastic malignancies also result in detectable urinary HCG levels. Sensitivity = 20mIU/mL. All other labs were within normal range or not returned as of this dictation. EMERGENCY DEPARTMENT COURSE and DIFFERENTIAL DIAGNOSIS/MDM: Vitals: Vitals: 06/12/24 1450 06/12/24 1452 06/12/24 1733 BP: (!) 151/71 105/56 Pulse: 65 80 Resp: 14 14 Temp: 36.6 C (97.8 F) TempSrc: Oral SpO2: 98% 100% Weight: 70.3 kg (155 lb) Height: 1.626 m (5' 4) Medications ketorolac (Toradol) injection 15 mg (15 mg IntraVENous Given 06/12/24 1618) benzonatate (Tessalon) capsule 200 mg (200 mg Oral Given 06/12/24 1618) SCREENINGS HEART Score History: Slightly suspicious ECG: Normal Age: <45 Risk Factors: 1-2 risk factors Troponin: Less than or equal to normal limit HEART Score: 1 NIH Stroke Scale 1A. Level of Consciousness: Alert, Keenly Responsive 1B. Ask Month and Age: Both Questions Right 1C. Blink Eyes & Squeeze Hands: Performs Both Tasks 2. Best Gaze: Normal 3. Visual: No Visual Loss 4. Facial Palsy: Normal Symmetrical Movements 5A. Motor - Left Arm: No Drift 5B. Motor - Right Arm: No Drift 6A. Motor - Left Leg: No Drift 6B. Motor - Right Leg: No Drift 7. Limb Ataxia: Absent 8. Sensory Loss: Normal 9. Best Language: No Aphasia 10. Dysarthria: Normal 11. Extinction and Inattention: No Abnormality NIH Stroke Scale: 0 28-year-old female presents for 3 days of pleuritic chest pain, lasting only a few seconds at a time, happening at random not associated with exercise. at bedside has pneumonia Concern for pleuritic chest pain, musculoskeletal chest pain, pneumonia, COVID- 19 RSV influenza or combination the above. Patient has a HEART score of 1, so given 2 negative high-sensitivity troponins to hours apart her risk of major adverse cardiac events in the next 6 weeks is less than 1.7%. Marvin a Wells score of 0 and a negative PERC criteria, so if she has a negative D-dimer the odds of aPE are less than 2%. I also considered the possibility of a thoracic aortic dissection, but she hasno associated neurological deficits, the radial and femoral pulses are equal, the patient does havepain that is maximal at onset but disappears within 1 to 2 seconds, and she has no ripping or tearing sensation and the pain does not migrate to the back of the abdomen. Thus if the chest x-ray is normal she has a [facility] thoracic aortic dissection CMT score of 0 and if the chest x-ray is not normal she has a thoracic aortic dissection CMT score of 1. Thus assuming that her CMT score is 1, if she has a negative D-dimer the odds of a thoracic aortic dissection are less than 04/999 and no CTA chest will be required to rule out dissection. We will get a D-dimer both to rule out PE and TADS. Her NIHSS is 0, this is not consistent with a stroke. We will also give patient Toradol for pain. MEDICAL DECISION MAKING: I considered, but did not perform, additional testing such as head or chest CT angiogram, VQ scan, or echocardiogram, as well as admission or transfer to a higher level of care. I utilized an evidence-based risk rating tool (CMT) along with my training and experience to weigh the risk of discharge against the risks of further testing, imaging, or hospitalization. At this time, I estimate the risks of additional testing, imaging, or hospitalization (in the case of discharge) to be equal to or greater than the risk of discharge. [id number] SHARED DECISION MAKING: I discussed my risk assessment with the patient. The patient understands and consents to the risk of disposition/plan, as well as the risk of uncertainty in estimating outcomes. [id number] PROCEDURES: Unless otherwise noted below, none Procedures EKG: I read and interpreted this EKG. My interpretation can be found in the [employer] EKG system. EKG shows sinus arrhythmia, normal axis, normal ND QRS and QTC intervals. No STEMI, no SVT, no LVH.No old EKG. Metabolic panel shows no metabolic acidosis, good kidney function, glucose within normal limits Aminotransferases unremarkable Alk phos unremarkable Sodium potassium calcium unremarkable Troponin #1 negative BNP negative Normal white blood cell count Not anemic Normal platelet count D-dimer is negative. PE effectively ruled out. Risk of PE less than 2%. Thoracic aortic dissection also effectively ruled out, risk of thoracic aortic dissection less than 04/999. No CTA chest required. Not Chest x-ray shows no focal saltation or pulmonary edema. No pneumonia. No pleural effusions no pneumothorax. Cardiac and mediastinal silhouettes are normal. Osseous structures unremarkable. Interpreted by radiology and by me. Respiratory PCR swab negative for COVID-19, negative for RSV, negative for influenza Troponin #2 negative. Risk of major adverse cardiac events in the next 6 weeks less than 1.7% D-dimer negative. Risk of PE less than 2%. Risk of thoracic aortic dissection less than 04/999. No CTA chest required Workup entirely negative for acute cardiopulmonary or infectious pathology. By process of illumination this is likely pleuritic chest pain associated with cough and possibly degree of muscle spasm superimposed on it. I will prescribe the patient a small supply of Valium to take as needed for musclespasm, she should not drink alcohol or drive a car while on Valium as it will make her sleepy. I will prescribe her ibuprofen for pain control and Tessalon for cough. There is no indication for Tamiflu as she is negative for influenza and there is no indication for antibiotics as there is no sign pneumonia. Patient will follow-up with her primary care provider, Elisabet Morgan, by the end of this w [place] to ensure she is feeling better. If she develops worsening chest pain, decreased exercise tolerance, shortness of breath, coughing up blood, fevers, chills, palpitations, feels weak feels faint or passes out, she should return to the ED immediately. Otherwise she should be stable for outpatientmanagement. At the time of patient's discharge, she has no chest pain, she is not tachycardic or tachypneic or hypoxic and she is normotensive and afebrile. She is not septic. Symptoms are gone. Results of workup and plan of care discussed with patient. She indicated understanding. Strict return precautions and anticipatory guidance given. All questions answered to her satisfaction. Patient discharged home in improved condition. Disposition: Discharged CRITICAL CARE TIME FINAL IMPRESSION 1. Pleuritic chest pain 2. Acute cough DISPOSITION Discharge 06/12/2024 07:32:34 PM PATIENT REFERRED TO: No follow-up provider specified. DISCHARGE MEDICATIONS: New Prescriptions No medications on file (Comment: Please note this report has been produced using speech recognition software and may contain errors related to that system including errors in grammar, punctuation, and spelling, as well as words and phrases that may be inappropriate. If there are any questions or concerns please feel freeto contact the dictating provider for clarification.) Keyona Conrad MD (electronically signed) Emergency Medicine Provider Keyona Conrad MD 06/12/241943 * Elisa Melton RN - 06/12/2024 2:43 PM EST Since last night c/o chest pain with radiation down both arms, cough, shortness of breath and dizziness. EKG done on arrival documented in this [facility]03-05-2025 Emergency department Triage note* Elisa Melton RN - 06/12/2024 2:43 PM EST Since last night c/o chest pain with radiation down both arms, cough, shortness of breath and dizziness. [id number] Emergency [facility] Note* Keyona Conrad MD - 06/12/2024 2:43 PM EST Images from the original note were not included. EMERGENCY DEPARTMENT ENCOUNTER Pt Name: Gabe Viera Birthdate 1995 Date of evaluation: 06/12/2024 ED Provider: Keyona Conrad MD CHIEF COMPLAINT Chief Complaint Patient presents with Chest Pain HISTORY OF PRESENT ILLNESS (Location/Symptom, Timing/Onset, Context/Setting, Quality, Duration, Modifying Factors, Severity) Note limiting factors. I wore appropriate PPE for the entirety of this encounter. HPI Gabe Viera is a 28 y.o. who presents to the emergency department with pleuritic chest pain Patient has a history of cigarette smoking which she is gradually replacing with vaping. Drinks alcohol. 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 Patient says that for the last3 days she has had pleuritic chest tightness, only lasts a few seconds at a time and radiates down her right arm. She gets lightheaded occasionally when this happens but denies any palpitations. She has no focal numbness or focal weakness in the arms or legs no slurred speech no facial droop no blurry vision no double vision no syncope no presyncope. She also has a cough and has been short of breath for 3 days. Her has a pneumonia and he is sitting right next to her with no mask on. Patient denies any fevers or chills. Patient says the chest tightness can happen at random, for no apparent reason. It is not associated with exertion, it is only rarely associated with coughing. Patient denies any recent travel or recent immobility. She has no leg pain orthopnea or paroxysmal nocturnal dyspnea. She has no calf pain she has no history of DVT or PE. She has no history of coronary artery disease and there is no family history of early CAD either. She denies any hemoptysis, denies anywheezing. Denies any fevers. She is not tachycardic or tachypneic or hypoxic. Nursing Notes were reviewed. Limitations to history: None Outside historians: None REVIEW OF SYSTEMS Review of Systems Pertinent positives and negatives as per HPI PAST MEDICAL HISTORY Past Medical History: Diagnosis Date Depression SURGICAL HISTORY History reviewed. No pertinent surgical history. CURRENT MEDICATIONS Previous Medications NORGESTIMATE-ETHINYL ESTRADIOL (SPRINTEC 28) 0.25-35 MG-MCG TABLET Take 1 tablet by mouth daily. ALLERGIES Penicillins FAMILY HISTORY Family History Problem Relation Name Age of Onset Ovarian cancer Paternal Grandmother Breast cancer Paternal Great-Grandmother Colon cancer Neg Hx Uterine cancer Neg Hx SOCIAL HISTORY Social History Socioeconomic History Marital status: Single Tobacco Use Smoking status: Every Day Current packs/day: 1.00 Types: Cigarettes Smokeless tobacco: Never Vaping Use Vaping status: Every Day Substance and Sexual Activity Alcohol use: Yes Drug use: Never Sexual activity: Yes Social Drivers of Health Financial Resource Strain: Low Risk (10/25/2022) Overall Financial Resource Strain (CARDIA) Difficulty of Paying Living Expenses: Not very hard Food Insecurity: No Food Insecurity (10/25/2022) Hunger Vital Sign Worried About Running Out of Food in the Last Year: Never true Ran Out of Food in the Last Year: Never true Transportation Needs: No Transportation Needs (10/25/2022) PRAPARE - Transportation Lack of Transportation (Medical): No Lack of Transportation (Non-Medical): No Physical Activity: Inactive (10/25/2022) Exercise Vital Sign Days of Exercise per Week: 0 days Minutes of Exercise per Session: 0 min Stress: No Stress Concern Present (10/25/2022) [employer] - Occupational Stress Questionnaire Feeling of Stress : Not at all Intimate Partner Violence: Not At Risk (10/25/2022) Humiliation, Afraid, Rape, and Kick questionnaire Fear of Current or Ex-Partner: No Emotionally Abused: No Physically Abused: No Sexually Abused: No Housing Stability: Low Risk (10/25/2022) Housing Stability Vital Sign Unable to Pay for Housing in the Last Year: No Number of Places Lived in the Last Year: 1 Unstable Housing in the Last Year: No PHYSICAL EXAM ED Triage Vitals [06/12/24 1450] Temp Heart Rate Resp BP 36.6 C (97.8 F) 65 14 (!) 151/71 SpO2 Temp Source Heart Rate Source Patient Position 98 % Oral -- -- BP Location FiO2 (%) -- -- Physical Exam General: WDWN adult in NAD. Non-toxic appearing HENT: Head NCAT, EOMI with no erythema, swelling or discharge. Normal visual acuity bilaterally. Nodiplopia bilaterally. No nystagmus bilaterally. No visual field cuts on confrontational testing bilaterally oropharyngeal mucus membranes moist, pink, no exudate Neck: Full ROM, supple, no rigidity Cardio: RRR, nl s1 s2 no m/r/g, extremities warm, dry, well perfused, non- edematous, 2+ bilateral radial pulses, 2+ bilateral carotid pulses, 2+ bilateral femoral pulses, 2+ bilateral DP pulses Lungs: Diminished lung sounds bilateral bases but otherwise no wheezes, rales, rhonchi, normal workof breathing. Rare dry cough on exam. No cyanosis no retractions. SaO2 90% on room air. Of note, patient says that her right lateral chest wall hurts when she takes a deep breath Abdomen: Soft, NT, ND, non-rigid, BS x 4 normal, no flank pain to palpation bilaterally, no CVA tenderness to palpation bilaterally MSK: Palpation of right anterior chest wall and right lateral chest wall reproduces the chest discomfort. Chest tightness appears to be spastic and intermittent, lasting only about 1 to 2 seconds at a time. No subcutaneous emphysema or crepitus in the chest wall Left anterior chest wall and left lateral chest wall are not tender to palpation No midline cervical thoracic or lumbar spine pain to palpation Bilateral lower extremities soft nontender nonerythematous nonindurated. 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 NIHSS = 0. Psych: Simultaneously has anxiety and depressed affect. Verbally consolable and redirectable. Not responding to internal stimuli, not psychotic DIAGNOSTIC RESULTS RADIOLOGY (Per Emergency Physician): Interpretation per the Radiologist below, if available at the time of this note: XR chest 2 views Final Result No focal consolidation or pulmonary edema. Report Dictated on Electronically Signed By: Rene Ruiz MD Electronically Signed Date/Time: 06/12/2024 4:41 PM EST LABS: Labs Reviewed COMPREHENSIVE METABOLIC PANEL - Abnormal Result Value SODIUM 142 POTASSIUM 3.5 CHLORIDE 110 (*) CARBON DIOXIDE 25 ANION GAP 7 UREA NITROGEN 10 CREATININE 0.75 GLUCOSE 91 CALCIUM 8.8 AST (SGOT) 16 ALT 11 ALKALINE PHOSPHATASE 80 ALBUMIN 3.7 BILIRUBIN, TOTAL 1.9 (*) TOTAL PROTEIN 6.7 eGFR >90.0 SARS-COV-2, FLU A/B, AND RSV COMBO - Normal SARS-CoV-2 Not Detected Respiratory Syncytial Virus Not Detected Influenza A Not Detected Influenza B Not Detected Narrative: Methodology: real-time, RT-PCR The SARS-CoV-2, Flu A/B, and RSV Combo assay is intended for in vitro diagnostic use under the FDA Emergency Use Authorization (EUA). This test has not been FDA cleared or approved. In compliance with this authorization, please visit www.fda.gov/media/287753/download or www.fda.gov/media/053811/download to access the applicable information sheets. D-DIMER,QUANTITATIVE - Normal D-DIMER, INNOVANCE 0.26 Narrative: [employer] D-Dimer values of <0.50 mg/L FEU can be used in combination with a pre-test probability model (e.g. Well's) to exclude pulmonary embolism (PE) disease, as well as an aid in the diagnosisof deep vein thrombosis (DVT). HIGH SENSITIVITY TROPONIN, SERIAL BASELINE - Normal Troponin HS Serial Baseline <3 NT PRO BNP - Normal NT PRO BNP 95 CBC WITH AUTO DIFFERENTIAL - Normal Auto WBC 7.7 RBC 3.92 Hemoglobin 12.2 Hematocrit 35.8 MCV 91.3 MCH 31.1 MCHC 34.1 RDW 13.4 Platelets 255 MPV 9.9 nRBC 0.0 Neutrophils Relative 59.1 Lymphocytes Relative 33.2 Monocytes Relative 5.8 Eosinophils Relative 1.3 Basophils Relative 0.3 Immature Grans % 0.3 Neutrophils Absolute 4.6 Lymphocytes Absolute 2.6 Monocytes Absolute 0.5 Eosinophils Absolute 0.1 Basophils Absolute 0.0 Immature Grans Absolute 0.0 HIGH SENSITIVITY TROPONIN, SERIAL, SECOND TEST - Normal 2h Troponin HS (Serial 2nd Troponin) <3 HCG QUALITATIVE URINE HCG,URINE QUAL Negative Narrative: is the most common reason for HCG in urine, although choriocarcinoma, hydatidiform mole, and certain nontrophoblastic malignancies also result in detectable urinary HCG levels. Sensitivity = 20mIU/mL. All other labs were within normal range or not returned as of this dictation. EMERGENCY DEPARTMENT COURSE and DIFFERENTIAL DIAGNOSIS/MDM: Vitals: Vitals: 06/12/24 1450 06/12/24 1452 06/12/24 1733 BP: (!) 151/71 105/56 Pulse: 65 80 Resp: 14 14 Temp: 36.6 C (97.8 F) TempSrc: Oral SpO2: 98% 100% Weight: 70.3 kg (155 lb) Height: 1.626 m (5' 4) Medications ketorolac (Toradol) injection 15 mg (15 mg IntraVENous Given 06/12/24 1618) benzonatate (Tessalon) capsule 200 mg (200 mg Oral Given 06/12/24 161) SCREENINGS HEART Score History: Slightly suspicious ECG: Normal Age: <45 Risk Factors: 1-2 risk factors Troponin: Less than or equal to normal limit HEART Score: 1 NIH Stroke Scale 1A. Level of Consciousness: Alert, Keenly Responsive 1B. Ask Month and Age: Both Questions Right 1C. Blink Eyes & Squeeze Hands: Performs Both Tasks 2. Best Gaze: Normal 3. Visual: No Visual Loss 4. Facial Palsy: Normal Symmetrical Movements 5A. Motor - Left Arm: No Drift 5B. Motor - Right Arm: No Drift 6A. Motor - Left Leg: No Drift 6B. Motor - Right Leg: No Drift 7. Limb Ataxia: Absent 8. Sensory Loss: Normal 9. Best Language: No Aphasia 10. Dysarthria: Normal 11. Extinction and Inattention: No Abnormality NIH Stroke Scale: 0 28-year-old female presents for 3 days of pleuritic chest pain, lasting only a few seconds at a time, happening at random not associated with exercise. at bedside has pneumonia Concern for pleuritic chest pain, musculoskeletal chest pain, pneumonia, COVID- 19 RSV influenza or combination the above. Patient has a HEART score of 1, so given 2 negative high-sensitivity troponins to hours apart her risk of major adverse cardiac events in the next 6 weeks is less than 1.7%. Shehas a Wells score of 0 and a negative PERC criteria, so if she has a negative D-dimer the odds of aPE are less than 2%. I also considered the possibility of a thoracic aortic dissection, but she hasno associated neurological deficits, the radial and femoral pulses are equal, the patient does havepain that is maximal at onset but disappears within 1 to 2 seconds, and she has no ripping or tearing sensation and the pain does not migrate to the back of the abdomen. Thus if the chest x-ray is normal she has a [facility] thoracic aortic dissection CMT score of 0 and if the chest x-ray is not normal she has a thoracic aortic dissection CMT score of 1. Thus assuming that her CMT score is 1, if she has a negative D-dimer the odds of a thoracic aortic dissection are less than 04/999 and no CTA chest will be required to rule out dissection. We will get a D-dimer both to rule out PE and TADS. Her NIHSS is 0, this is not consistent with a stroke. We will also give patient Toradol for pain. MEDICAL DECISION MAKING: I considered, but did not perform, additional testing such as head or chest CT angiogram, VQ scan, or echocardiogram, as well as admission or transfer to a higher level of care. I utilized an evidence-based risk rating tool (CMT) along with my training and experience to weigh the risk of discharge against the risks of further testing, imaging, or hospitalization. At this time, I estimate the risks of additional testing, imaging, or hospitalization (in the case of discharge) to be equal to or greater than the risk of discharge. [id number] SHARED DECISION MAKING: I discussed my risk assessment with the patient. The patient understands and consents to the risk of disposition/plan, as well as the risk of uncertainty in estimating outcomes. [id number] PROCEDURES: Unless otherwise noted below, none Procedures EKG: I read and interpreted this EKG. My interpretation can be found in the [employer] EKG system. EKG shows sinus arrhythmia, normal axis, normal ND QRS and QTC intervals. No STEMI, no SVT, no LVH.No old EKG. Metabolic panel shows no metabolic acidosis, good kidney function, glucose within normal limits Aminotransferases unremarkable Alk phos unremarkable Sodium potassium calcium unremarkable Troponin #1 negative BNP negative Normal white blood cell count Not anemic Normal platelet count D-dimer is negative. PE effectively ruled out. Risk of PE less than 2%. Thoracic aortic dissection also effectively ruled out, risk of thoracic aortic dissection less than 04/999. No CTA chest required. Not Chest x-ray shows no focal saltation or pulmonary edema. No pneumonia. No pleural effusions no pneumothorax. Cardiac and mediastinal silhouettes are normal. Osseous structures unremarkable. Interpreted by radiology and by me. Respiratory PCR swab negative for COVID-19, negative for RSV, negative for influenza Troponin #2 negative. Risk of major adverse cardiac events in the next 6 weeks less than 1.7% D-dimer negative. Risk of PE less than 2%. Risk of thoracic aortic dissection less than 04/999. No CTA chest required Workup entirely negative for acute cardiopulmonary or infectious pathology. By process of illumination this is likely pleuritic chest pain associated with cough and possibly degree of muscle spasm superimposed on it. I will prescribe the patient a small supply of Valium to take as needed for musclespasm, she should not drink alcohol or drive a car while on Valium as it will make her sleepy. I will prescribe her ibuprofen for pain control and Tessalon for cough. There is no indication for Tamiflu as she is negative for influenza and there is no indication for antibiotics as there is no sign pneumonia. Patient will follow-up with her primary care provider, Elisabet Morgan, by the end of this [facility] [place] [facility] to ensure she is feeling better. If she develops worsening chest pain, decreased exercise tolerance, shortness of breath, coughing up blood, fevers, chills, palpitations, feels weak feels faint or passes out, she should return to the ED immediately. Otherwise she should be stable for outpatientmanagement. At the time of patient's discharge, she has no chest pain, she is not tachycardic or tachypneic or hypoxic and she is normotensive and afebrile. She is not septic. Symptoms are gone. Results of workup and plan of care discussed with patient. She indicated understanding. Strict return precautions and anticipatory guidance given. All questions answered to her satisfaction. Patient discharged home in improved condition. Disposition: Discharged CRITICAL CARE TIME FINAL IMPRESSION 1. Pleuritic chest pain 2. Acute cough DISPOSITION Discharge 06/12/2024 07:32:34 PM PATIENT REFERRED TO: No follow-up provider specified. DISCHARGE MEDICATIONS: New Prescriptions No medications on file (Comment: Please note this report has been produced using speech recognition software and may contain errors related to that system including errors in grammar, punctuation, and spelling, as well as words and phrases that may be inappropriate. If there are any questions or concerns please feel freeto contact the dictating provider for clarification.) Keyona Conrad MD (electronically signed) Emergency Medicine Provider Keyona Conrad MD 06/12/241943 [facility]01-21-2025 NoteHNO ID: [id number] Author: CAROLYNN HUMPHREY, DO Service: ? Author Type: Physician Type: Progress Notes Filed: 04/30/2024 19:45 Note Text: Subjective HPI Pt is here for acute visit She has been lightheaded for over 2 weeks It is constant It is worse when she goes from sitting to standing It can last from a few minutes to 1 hour She feels weak when it happens She is getting lightheaded when driving She is occasionally getting a headache after she gets lightheaded She gets an eye exam annually, last time was in October, denies blurred vision She denies feeling like the room is spinning She denies chest pain or heart palpitations She has been checking her BP at home, has had readings of 115/69, her blood sugar is 108 She has vaginal discharge with perineal itchiness and irritation ALLERGIES Allergen Reactions Amoxicillin Swelling Penicillins Swelling Current Outpatient Medications Medication Sig Dispense Refill fluconazole (DIFLUCAN) 150 mg tablet Take one by mouth at the first sign of a yeast infection, repeat with another tablet in 3 days (Patient not taking: Reported on 04/30/2024) 2 tablet 0 No current facility-administered medications for this visit. ACTIVE PROBLEM LIST Obesity, Class I, Bmi 30-34.9 Bacterial Vaginosis Social History Tobacco Use Smoking status: Former Current packs/day: 1.00 Types: Cigarettes Smokeless tobacco: Never Vaping Use Vaping status: current everyday user Substances: Nicotine Substance Use Topics Alcohol use: No Drug use: No Family History Problem Relation Age of Onset No Known Problems Mother No Known Problems Father Diabetes Maternal Grandmother Ovarian cancer Paternal Grandmother Diabetes Other No Known Problems Half-sister No Known Problems Half-sister No Known Problems Half-sister No Known Problems Half-sister No Known Problems Half-brother Reviewed past medical history, family history and surgeries. All medications and supplements were reviewed with the patient. Review of Systems Constitutional: Negative for chills, diaphoresis, fever, malaise/fatigue and weight loss. HENT: Negative for ear pain and hearing loss. Eyes: Negative for blurred vision and double vision. Respiratory: Negative for cough and shortness of breath. Cardiovascular: Negative for chest pain, palpitations and leg swelling. Gastrointestinal: Negative for constipation, diarrhea and heartburn. Genitourinary: Negative for dysuria and frequency. Vaginal discharge and irritation Musculoskeletal: Negative for back pain, falls, joint pain and myalgias. Skin: Negative for itching and rash. Neurological: Positive for dizziness and headaches. Negative for weakness. Endo/Heme/Allergies: Does not bruise/bleed easily. Psychiatric/Behavioral: Negative for depression and substance abuse. The patient does not have insomnia. Objective BP 100/64 Pulse 83 Temp 36.4 ?C (97.6 ?F) Resp 16 Ht 162.6 cm (5' 4) Wt 72.6 kg (160 lb) LMP 02/14/2024 (Approximate) SpO2 93% BMI 27.46 kg/m? Physical Exam Constitutional: Appearance: Normal appearance. HENT: Head: Normocephalic and atraumatic. Nose: Nose normal. Mouth/Throat: Mouth: Mucous membranes are moist. Dentition: Normal dentition. Eyes: General: Lids are normal. Extraocular Movements: Extraocular movements intact. Conjunctiva/sclera: Conjunctivae normal. Pupils: Pupils are equal, round, and reactive to light. Neck: Thyroid: No thyroid mass or thyromegaly. Vascular: No carotid bruit. Trachea: Phonation normal. Cardiovascular: Rate and Rhythm: Normal rate and regular rhythm. Heart sounds: Normal heart sounds. No murmur heard. No friction rub. No gallop. Pulmonary: Effort: Pulmonary effort is normal. Breath sounds: Normal breath sounds. No wheezing or rales. Abdominal: General: Bowel sounds are normal. There is no distension. Palpations: Abdomen is soft. There is no mass. Tenderness: There is no abdominal tenderness. Genitourinary: Comments: Pelvic exam declined Musculoskeletal: General: No swelling or tenderness. Normal range of motion. Cervical back: Normal range of motion and neck supple. No edema. Lymphadenopathy: Cervical: No cervical adenopathy. Skin: General: Skin is warm and dry. Findings: No erythema or rash. Nails: There is no clubbing. Neurological: Mental Status: She is alert and oriented to person, place, and time. Cranial Nerves: No cranial nerve deficit. Motor: Motor function is intact. Coordination: Coordination normal. Gait: Gait is intact. Psychiatric: Attention and Perception: Attention normal. Mood and Affect: Mood and affect normal. Speech: Speech normal. Behavior: Behavior normal. Behavior is cooperative. Thought Content: Thought content normal. Cognition and Memory: Cognition and memory normal. Judgment: Judgment normal. ASSESSMENT/PLAN: 1. Lightheadedness - ICD9: 780.4, ICD10: R42 (more content not included)...[facility]01-21-2025 History of Present illness Narrative* YvetteCarolynn - 04/30/2024 8:42 AM EST Subjective HPI Pt is here for acute visit She has been lightheaded for over 2 weeks It is constant It is worse when she goes from sitting to standing It can last from a few minutes to 1 hour She feels weak when it happens She is getting lightheaded when driving She is occasionally getting a headache after she gets lightheaded She gets an eye exam annually, last time was in October, denies blurred vision She denies feeling like the room is spinning She denies chest pain or heart palpitations She has been checking her BP at home, has had readings of 115/69, her blood sugar is 108 She has vaginal discharge with perineal itchiness and irritation ALLERGIES Allergen Reactions Amoxicillin Swelling Penicillins Swelling Current Outpatient Medications Medication Sig Dispense Refill fluconazole (DIFLUCAN) 150 mg tablet Take one by mouth at the first sign of a yeast infection, repeat with another tablet in 3 days (Patient not taking: Reported on 04/30/2024) 2 tablet 0 No current facility-administered medications for this visit. ACTIVE PROBLEM LIST Obesity, Class I, Bmi 30-34.9 Bacterial Vaginosis Social History Tobacco Use Smoking status: Former Current packs/day: 1.00 Types: Cigarettes Smokeless tobacco: Never Vaping Use Vaping status: current everyday user Substances: Nicotine Substance Use Topics Alcohol use: No Drug use: No Family History Problem Relation Age of Onset No Known Problems Mother No Known Problems Father Diabetes Maternal Grandmother Ovarian cancer Paternal Grandmother Diabetes Other No Known Problems Half-sister No Known Problems Half-sister No Known Problems Half-sister No Known Problems Half-sister No Known Problems Half-brother Reviewed past medical history, family history and surgeries. All medications and supplements were reviewed with the patient. Review of Systems Constitutional: Negative for chills, diaphoresis, fever, malaise/fatigue and weight loss. HENT: Negative for ear pain and hearing loss. Eyes: Negative for blurred vision and double vision. Respiratory: Negative for cough and shortness of breath. Cardiovascular: Negative for chest pain, palpitations and leg swelling. Gastrointestinal: Negative for constipation, diarrhea and heartburn. Genitourinary: Negative for dysuria and frequency. Vaginal discharge and irritation Musculoskeletal: Negative for back pain, falls, joint pain and myalgias. Skin: Negative for itching and rash. Neurological: Positive for dizziness and headaches. Negative for weakness. Endo/Heme/Allergies: Does not bruise/bleed easily. Psychiatric/Behavioral: Negative for depression and substance abuse. The patient does not have insomnia. Objective BP 100/64 Pulse 83 Temp 36.4 C (97.6 F) Resp 16 Ht 162.6 cm (5' 4) Wt 72.6 kg (160 lb) LMP 02/14/2024 (Approximate) SpO2 93% BMI 27.46 kg/m Physical Exam Constitutional: Appearance: Normal appearance. HENT: Head: Normocephalic and atraumatic. Nose: Nose normal. Mouth/Throat: Mouth: Mucous membranes are moist. Dentition: Normal dentition. Eyes: General: Lids are normal. Extraocular Movements: Extraocular movements intact. Conjunctiva/sclera: Conjunctivae normal. Pupils: Pupils are equal, round, and reactive to light. Neck: Thyroid: No thyroid mass or thyromegaly. Vascular: No carotid bruit. Trachea: Phonation normal. Cardiovascular: Rate and Rhythm: Normal rate and regular rhythm. Heart sounds: Normal heart sounds. No murmur heard. No friction rub. No gallop. Pulmonary: Effort: Pulmonary effort is normal. Breath sounds: Normal breath sounds. No wheezing or rales. Abdominal: General: Bowel sounds are normal. There is no distension. Palpations: Abdomen is soft. There is no mass. Tenderness: There is no abdominal tenderness. Genitourinary: Comments: Pelvic exam declined Musculoskeletal: General: No swelling or tenderness. Normal range of motion. Cervical back: Normal range of motion and neck supple. No edema. Lymphadenopathy: Cervical: No cervical adenopathy. Skin: General: Skin is warm and dry. Findings: No erythema or rash. Nails: There is no clubbing. Neurological: Mental Status: She is alert and oriented to person, place, and time. Cranial Nerves: No cranial nerve deficit. Motor: Motor function is intact. Coordination: Coordination normal. Gait: Gait is intact. Psychiatric: Attention and Perception: Attention normal. Mood and Affect: Mood and affect normal. Speech: Speech normal. Behavior: Behavior normal. Behavior is cooperative. Thought Content: Thought content normal. Cognition and Memory: Cognition and memory normal. Judgment: Judgment normal. ASSESSMENT/PLAN: 1. Lightheadedness - ICD9: 780.4, ICD10: R42 (primary diagnosis) Pt advised to drink 64 ounces of water daily - ECG B/O W INTERP (MED OFFICE) shows NSR - COMPLETE BLOOD COUNT - COMPREHENSIVE METABOLIC PANEL 2. Screening for thyroid disorder - ICD9: V77.0, ICD10: Z13.29 - THYROID STIMULATING HORMONE 3. Vaginal irritation - ICD9: 623.9, ICD10: N89.8 Pt declined pelvic exam Will treat with diflucan 150 mg x 1 and metrogel vaginal gel nightly x 5 nights Carolynn Humphrey DO documented in this encounterGood [facility] Telephone encounter Note * Telephone Encounter - Jeffry Balbuena MA - 08/11/2023 1:07 PM EDT Patient received her my chart message. Jeffry Balbuena MA [facility]05-03[facility]24 Miscellaneous Notes* Telephone Encounter - Jeffry Balbuena MA - 08/11/2023 1:07 PM EDT Patient received her my chart message. Jeffry Balbuena MA * Telephone Encounter - Jeffry Balbuena MA - 08/11/2023 1:05 PM EDT ----- Message from Elisaebt Morgan APRN.MED DIR sent at 08/11/2023 11:34 AM EDT ----- Please let patient know their results are WNL. Thank you. documented in this encounterGood [facility]05-[facility]24 Telephone encounter Note * Telephone Encounter - Jeffry Balbuena MA - 08/11/2023 1:05 PM EDT ----- Message from Elisabet Morgan APRN.MED DIR sent at 08/11/2023 11:34 AM EDT ----- Please let patient know their results are WNL. Thank you. [facility] History of Present illness Narrative* Elisabet Morgan APRN.CNP - 08/11/2023 8:55 AM EDT CHIEF COMPLAINT: Gabe Viera is a 27 year old female, patient of MANUEL Becker, who presents for 4 week f/u abd pain. Her pain is located to her lower abdomen but currently rates it a 1/10. She has had chronic pain for past year and a half. She describes it as a pressure the past 2 days its been hard to the touch.She has not taken anything for the pain. I reviewed past medical, surgical, social, and family histories today and updated chart. Allergies, chronic medications, and supplements were also reviewed. Pain is located to right lower abdomen Off and on for the last year and a half Not correlated to her cycle Doesn't matter what position Feels like a pressure Having some vaginal itching Clear discharge No odor that she can tell Did have leftover Monistat and started No antibiotics recently The history is provided by the patient. PAST MEDICAL HISTORY Diagnosis Date Anxiety Asthma Bronchitis Depression Personality disorder (HCC) PAST SURGICAL HISTORY Procedure Laterality Date NONE Social History Tobacco Use Smoking status: Former Packs/day: 1 Types: Cigarettes Smokeless tobacco: Never Vaping Use Vaping Use: current everyday user Substances: Nicotine Substance Use Topics Alcohol use: No Drug use: No ALLERGIES Allergen Reactions Amoxicillin Swelling Penicillins Swelling Family History Problem Relation Age of Onset No Known Problems Mother No Known Problems Father Diabetes Maternal Grandmother Ovarian cancer Paternal Grandmother Diabetes Other No Known Problems Half-sister No Known Problems Half-sister No Known Problems Half-sister No Known Problems Half-sister No Known Problems Half-brother No current outpatient medications on file. No current facility-administered medications for this visit. Review of Systems Constitutional: Negative for appetite change, chills, diaphoresis, fatigue and fever. Respiratory: Negative. Cardiovascular: Negative. Gastrointestinal: Positive for abdominal pain (right lower abdomen). Negative for blood in stool, constipation, diarrhea, nausea and vomiting. Genitourinary: Negative for dysuria, flank pain, hematuria and urgency. Musculoskeletal: Positive for back pain. Negative for arthralgias, gait problem, joint swelling, myalgias and neck pain. Skin: Negative. Neurological: Negative for dizziness, light-headedness and headaches. BP 122/64 Pulse 83 Temp 98.3 Resp 18 Ht 5' 4.02 (1.63m) Wt 187 lb (84.8kg) SpO2 97% LMP 03/10/2023 BMI 32.08 kg/(m^2). Physical Exam Vitals and nursing note reviewed. Constitutional: Appearance: She is obese. HENT: Head: Normocephalic. Mouth/Throat: Mouth: Mucous membranes are moist. Eyes: Pupils: Pupils are equal, round, and reactive to light. Cardiovascular: Rate and Rhythm: Normal rate and regular rhythm. Heart sounds: Normal heart sounds. Pulmonary: Effort: Pulmonary effort is normal. Breath sounds: Normal breath sounds. Abdominal: General: Bowel sounds are normal. There is no distension. Palpations: Abdomen is soft. There is no hepatomegaly, splenomegaly or mass. Tenderness: There is generalized abdominal tenderness. There is no guarding. Negative signs includeMurphy's sign and McBurney's sign. Skin: General: Skin is warm and dry. Neurological: Mental Status: She is alert and oriented to person, place, and time. Psychiatric: Mood and Affect: Mood is anxious. Behavior: Behavior is cooperative. Cognition and Memory: Cognition normal. No visits with results within 1 Day(s) from this visit. Latest known visit with results is: Appointment on 07/10/2023 Component Date Value Ref Range Status Lipase 07/10/2023 22 16 - 61 U/L Final WBC 07/10/2023 9.23 3.70 - 11.00 k/uL Final RBC 07/10/2023 4.69 3.90 - 5.20 m/uL Final Hemoglobin 07/10/2023 14.4 11.5 - 15.5 g/dL Final Hematocrit 07/10/2023 43.1 36.0 - 46.0 % Final MCV 07/10/2023 91.9 80.0 - 100.0 fL Final MCH 07/10/2023 30.7 26.0 - 34.0 pg Final MCHC 07/10/2023 33.4 30.5 - 36.0 g/dL Final RDW-CV 07/10/2023 12.5 11.5 - 15.0 % Final Platelet Count 07/10/2023 266 150 - 400 k/uL Final MPV 07/10/2023 9.4 9.0 - 12.7 fL Final Neutrophils % 07/10/2023 59.8 % Final Abs Neut 07/10/2023 5.52 1.45 - 7.50 k/uL Final Lymphocytes % 07/10/2023 33.8 % Final Abs Lymph 07/10/2023 3.12 1.00 - 4.00 k/uL Final Monocytes % 07/10/2023 4.8 % Final Abs [place] 07/10/2023 0.44 <0.87 k/uL Final Eosinophils % 07/10/2023 1.2 % Final Abs Eosin 07/10/2023 0.11 <0.46 k/uL Final Basophils % 07/10/2023 0.3 % Final Abs Baso 07/10/2023 0.03 <0.11 k/uL Final Immature Granulocytes % 07/10/2023 0.1 % Final Abs Immature Gran 07/10/2023 <0.03 <0.10 k/uL Final Diff Type 07/10/2023 Auto Final Protein, Total 07/10/2023 7.9 6.3 - 8.0 g/dL Final Albumin 07/10/2023 4.3 3.9 - 4.9 g/dL Final Calcium, Total 07/10/2023 9.4 8.5 - 10.2 mg/dL Final Bilirubin, Total 07/10/2023 0.9 0.2 - 1.3 mg/dL Final Alkaline Phosphatase 07/10/2023 104 34 - 123 U/L Final AST 07/10/2023 14 13 - 35 U/L Final ALT 07/10/2023 14 7 - 38 U/L Final Glucose 07/10/2023 103 (H) 74 - 99 mg/dL Final The [place] [employer] (ADA) provides guidance for cutoff values for fasting glucose andrandom glucose. The ADA defines fasting as no caloric intake for at least 8 hours. Fasting plasma glucose results between 100 to 125 mg/dL indicate increased risk for diabetes (prediabetes). Fasting plasma glucose results greater than or equal to 126 mg/dL meet the criteria for diagnosis of diabetes. In the absence of unequivocal hyperglycemia, results should be confirmed by repeat testing. In a patient with classic symptoms of hyperglycemia or hyperglycemic crisis, random plasma glucose results greater than or equal to 200 mg/dL meet the criteria for diagnosis of diabetes. Reference: Standards of Medical Care in Diabetes 2016, [place] [employer]. Diabetes Care. 2016.39(Suppl 1). BUN 07/10/2023 8 7 - 21 mg/dL Final Creatinine 07/10/2023 0.86 0.58 - 0.96 mg/dL Final Sodium 07/10/2023 137 136 - 144 mmol/L Final Potassium 07/10/2023 4.2 3.7 - 5.1 mmol/L Final Chloride 07/10/2023 102 97 - 105 mmol/L Final CO2 07/10/2023 25 22 - 30 mmol/L Final Anion Gap 07/10/2023 10 9 - 18 mmol/L Final Estimated Glomerular Filtration Ra* 07/10/2023 96 >=60 mL/min/1.73m Final Estimated Glomerular Filtration Rate (eGFR) is calculated using the 2020 CKD-EPI creatinine equation. This equation utilizes serum creatinine, sex, and age as parameters. The creatinine assay has traceable calibration to isotope dilution- mass spectrometry. Refer to KDIGO guidelines for clinical interpretation. In patients with unstable renal function, e.g. those with acute kidney injury, the eGFRmay not accurately reflect actual GFR. * * *Final Report* * * DATE OF EXAM: Jul 11 2023 10:14AM [facility] 0530 - CT ABD/PEL W IVCON / PROCEDURE REASON: Right lower quadrant abdominal pain * * * * Physician Interpretation * * * * EXAMINATION: CT ABD/PEL W IVCON CLINICAL HISTORY: Right lower quadrant abdominal pain TECHNIQUE: CT of the abdomen and pelvis was performed using standard technique, scanning from just above the dome of the diaphragm to the symphysis pubis. Contrast: IV: 150 ml of Omnipaque 300 Oral: 20 ml of Omni 240 10-25ml diluted with water Dose-Length Product (DLP): 745.80 mGy*cm CT Dose Reduction Employed: Automated exposure control(AEC) and iterative recon COMPARISON: No available prior. RESULT: Lower thorax: Unremarkable. Liver: No mass. Biliary: Gallbladder is nondistended. No biliary duct dilatation. Spleen: No mass. No splenomegaly. Pancreas: No mass or ductal dilatation. Adrenal glands: Unremarkable. Kidneys: No solid, enhancing mass or hydronephrosis in either kidney. Vascular: Normal caliber abdominal aorta . GI tract: No dilation or wall thickening. Normal appendix. No pericolonic inflammatory changes. Pelvis: Trace free pelvic fluid, likely physiologic. Involuting 1.5 cm left corpus luteum cyst and a 2 cm simple-appearing left adnexal cyst. Unremarkable urinary bladder and uterus. Lymph nodes: No abdominal or pelvic lymphadenopathy, by size criteria. Mesentery/Peritoneum/Retroperitoneum: No ascites, pneumoperitoneum or suspicious mass. Soft Tissues/Bones: No destructive osseous lesion. No suspicious body wall findings. Latest Ref Rng 08/11/2023 GLUCOSE UA (POCT) Negative mg/dL Negative BILIRUBIN UA (POCT) Negative Negative KETONE UA (POCT) Negative mg/dL Negative SPECIFIC GRAVITY UA (POCT) 1.005 - 1.030 >=1.030 HEMOGLOBIN/BLOOD UA (POCT) Negative Negative PH UA (POCT) 4.5 - 8.0 6.0 PROTEIN UA (POCT) Negative mg/dL Negative UROBILINOGEN UA (POCT) Normal E.U./dL 1.0 NITRITE UA (POCT) Negative Negative LEUKOCYTES UA (POCT) Negative Negative COLOR UA (POCT) Yellow CLARITY UA (POCT) Clear ASSESSMENT/PLAN: 1. Right lower quadrant abdominal pain - ICD9: 789.03, ICD10: R10.31 (primary diagnosis) Etiology unclear Differential Diagnosis includes Constipation, IBD, Kidney stones/colic, and Ovarian cyst - CT abd showed free fluid but on the left side - Increase fiber in diet - Karnes low residue diet 2. Prediabetes - ICD9: 790.29, ICD10: R73.03 - HEMOGLOBIN A1C 3. Glucose found in urine on examination - ICD9: 791.5, ICD10: R81 - UA DIP B/O - HEMOGLOBIN A1C 4. Proteinuria, unspecified type - ICD9: 791.0, ICD10: R80.9 - UA DIP B/O 5. Itching in the vaginal area - ICD9: 698.1, ICD10: N89.8 - FLUCONAZOLE 150 MG TABLET New medication(s) prescribed today: Yes: Diflucan. Discussed new medication dosage, usage, goals oftherapy, and side effects. Patient has been apprised of any potential drug interactions to be awareof. Patient expresses understanding. Counseling completed in adopting health behaviors such as avoiding excessive alcohol use, avoid tobacco use, improve nutrition, and engage in physical activities. Copy of written care plan, clinical summary, treatment plan, new medications, goals, and self management requirements were given to patient. Elisabet Morgan APRN.MED DIR documented in this encounterGood [facility]05-02-[facility]24 Telephone encounter Note * Telephone Encounter - Avani Ragsdale MA - 08/10/2023 7:42 AM EDT ----- Message from Jeffry Balbuena MA sent at 07/11/2023 7:16 AM EDT ----- Remind pt. Time to recheck UA. Jeffry Balbuena MA [facility]05-02-[facility]24 Miscellaneous Notes* Telephone Encounter - Avani Ragsdale MA - 08/10/2023 7:42 AM EDT ----- Message from Jeffry Balbuena MA sent at 07/11/2023 7:16 AM EDT ----- Remind pt. Time to recheck UA. Jeffry Balbuena MA documented in this encounterGood Samaritan Hospital04-05-2024 Miscellaneous Notes* Telephone Encounter - Jeffry Balbuena MA - 07/14/2023 1:20 PM EDT Patient notified. .Jeffry Balbuena MA * Telephone Encounter - Jeffry Balbuena MA - 07/14/2023 1:19 PM EDT ----- Message from Sylvia Becker APRN.MED DIR sent at 07/14/2023 12:57 PM EDT ----- Normal besides mild elevated of sugar. Sylvia Becker APRN.MED DIR documented in this encounterGood Samaritan Hospital04-05-2024 Miscellaneous Notes* Telephone Encounter - Avani Ragsdale MA - 07/14/2023 7:48 AM EDT Patient is informed Avani Ragsdale MA * Telephone Encounter - Avani Ragsdale MA - 07/14/2023 7:48 AM EDT ----- Message from Sylvia Becker APRN.MED DIR sent at 07/13/2023 11:54 PM EDT ----- Please notify patient results are normal. Thank you. Sylvia Becker APRN.MED DIR documented in this encounterGood [facility]aritan Hospital04-02-2024 Miscellaneous Notes* Telephone Encounter - Jeffry Balbuena MA - 07/11/2023 8:35 AM EDT Patient received her my chart message. Jeffry Balbuena MA * Telephone Encounter - Jeffry Balbuena MA - 07/11/2023 7:16 AM EDT Reminder placed. Jeffry Balbuena MA * Telephone Encounter - Sylvia Becker APRN.MED DIR - 07/10/2023 10:46 PM EDT Urine test is negative UA shows some protein and glucose Blood sugar was slightly elevated at 103, prediabetes range Liver, kidney, pancreas levels normal Cbc normal Recheck urinalysis in 1 month, please add reminder Sylvia Becker APRN.MED DIR documented in this encounterGood Samaritan Hospital04-01-2024 History of Present illness Narrative* Sylvia Becker APRN.GARETH - 07/10/2023 3:33 PM EDT Images from the original note were not included. Subjective Gabe Viera is a 27 year old female here today for abdominal pain. I reviewed past medical, surgical, social, and family histories today and updated chart. Allergies, chronic medications, and supplements were also reviewed. HPI Abdominal pain is chronic - started 1.5 years ago around Thanksgiving time Located to right lower quadrant Will occasionally get pain to right lower back Rates pain 2/10 Pain is both sharp and dull Feels like being stabbed, then will have a weird feeling like a pressure Pain has been more frequent the past few months Intermittent but does occur everyday Pain severity does get worse and will not be able to go to work No nausea or vomiting Not sure about heartburn - she does have chest pain occasionally - very brief like someone sitting on chest No SOB Coffee drinks cause diarrhea - thinks she may be lactose intolerant Usually has BM every 1-2 days No rectal pain Rectal bleeding - noticed it last week, with wiping. The first 2 times it was bright red, then third time it was a darker red color. Thinks she may have had hemhorroids in the past LMP - 06/13/23 She has regular periods Periods usually last 5-7 days Has heavy bleeding Gets really bad cramps with periods Was on control in the past - it lightened her period She is sexually active, doesn't use condoms She would like to get Has pain with sex Grows excessive hair to neck, chin, abdomen She has acne Her blood sugar has been elevated Prone to BV and yeast infections Last Pap was August 2021 = Normal She saw [employer] TE[employer]ER, Dr Valles, has had 2 pelvic US done She would like to see a new [employer] DES[employer] TE[employer]ER Hx of LEFT ovary cyst She has tried ibuprofen, tylenol, heating pad She describes her diet as lousy - lots of pasta, sometimes has fruit, no vegetables Drinks Dr Pepper Not that much water Rarely has alcohol PAST MEDICAL HISTORY Diagnosis Date Anxiety Asthma Bronchitis Depression Personality disorder (HCC) PAST SURGICAL HISTORY Procedure Laterality Date NONE ALLERGIES Amoxicillin and Penicillins MEDICATIONS No prescriptions on file. FAMILY HISTORY Problem Relation Age of Onset No Known Problems Mother No Known Problems Father Diabetes Maternal Grandmother Ovarian cancer Paternal Grandmother Diabetes Other No Known Problems Half-sister No Known Problems Half-sister No Known Problems Half-sister No Known Problems Half-sister No Known Problems Half-brother Social History Tobacco Use Smoking status: Former Packs/day: 1 Types: Cigarettes Smokeless tobacco: Never Vaping Use Vaping Use: current everyday user Substances: Nicotine Substance Use Topics Alcohol use: No Drug use: No Review of Systems Constitutional: Negative for appetite change, chills, fatigue, fever and unexpected weight change. HENT: Negative for congestion, ear pain, rhinorrhea and sore throat. Eyes: Negative for pain, discharge, itching and visual disturbance. Respiratory: Negative for cough, shortness of breath and wheezing. Cardiovascular: Negative for chest pain, palpitations and leg swelling. Gastrointestinal: Positive for abdominal pain, anal bleeding and blood in stool. Negative for constipation, diarrhea, nausea and vomiting. Musculoskeletal: Negative for arthralgias. Skin: Negative for rash. Neurological: Negative for dizziness, tremors, weakness and headaches. Psychiatric/Behavioral: Negative for dysphoric mood and sleep disturbance. The patient is not nervous/anxious. Objective BP 110/60 Pulse 93 Temp 98.1 Resp 18 Ht 5' 4.02 (1.63m) Wt 182 lb (82.6kg) SpO2 97% LMP 03/10/2023 BMI 31.22 kg/(m^2). Physical Exam Constitutional: Appearance: Normal appearance. She is not toxic-appearing. HENT: Mouth/Throat: Lips: Carpenter. Mouth: Mucous membranes are moist. Pharynx: Oropharynx is clear. Eyes: General: No scleral icterus. Cardiovascular: Rate and Rhythm: Normal rate and regular rhythm. Heart sounds: Normal heart sounds. No murmur heard. Pulmonary: Effort: Pulmonary effort is normal. Breath sounds: Normal breath sounds. No wheezing or rales. Abdominal: General: Bowel sounds are normal. There is no distension or abdominal bruit. Palpations: Abdomen is soft. There is no hepatomegaly, splenomegaly or mass. Tenderness: There is abdominal tenderness in the right lower quadrant. There is no right CVA tenderness or left CVA tenderness. Hernia: No hernia is present. There is no hernia in the right inguinal area. Musculoskeletal: Right lower leg: No edema. Left lower leg: No edema. Skin: General: Skin is warm and dry. Findings: No bruising or rash. Neurological: General: No focal deficit present. Mental Status: She is alert and oriented to person, place, and time. Sensory: Sensation is intact. Motor: Motor function is intact. Coordination: Coordination is intact. Psychiatric: Attention and Perception: Attention and perception normal. Mood and Affect: Mood and affect normal. Speech: Speech normal. Behavior: Behavior normal. Behavior is cooperative. Thought Content: Thought content normal. ASSESSMENT/PLAN: 1. Right lateral abdominal pain - ICD9: 789.09, ICD10: R10.9 (primary diagnosis) - Chronic, associated with rectal bleeding Check labs CT A/P - CBC + DIFF - COMP METABOLIC PANEL - LIPASE BLD 2. Right lower quadrant abdominal pain - ICD9: 789.03, ICD10: R10.31 - CT ABD/PEL W IVCON 3. Rectal bleeding - ICD9: 569.3, ICD10: K62.5 Will need GI referral Labs and CT A/P to be done first FU 4-6 weeks 4. Dyspareunia in female - ICD9: 625.0, ICD10: N94.10 - CONSULT TO DIAPER FOLDER Sylvia Becker APRN.MED DIR documented in this encounterGood Samaritan [facility]03-22-2024 History of Present illness Narrative* Malia Valles MD - 06/30/2023 10:00 AM EDT Gabe Viera 06/[birth year]23 Date Of : 1995 HPI: Gabe Viera is a 27 y.o. female The patient was seen today. She is here regarding fu ulsd for pelvic pain . Planning to go back on ocp but lost pills; will send new rx.. 2 days pain with cycle. Menses regular. Sharp pain right lasts seconds every day. Problem for years. Review Of Systems: Constitutional: No fever, chills or malaise; No weight change or fatigue Gastrointestinal ROS: No Indigestion, Heartburn, Nausea, vomiting, Diarrhea, Constipation,or Bowel Changes Genito-Urinary ROS: No Dysuria Psych ROS: No Depression, Homicidal thoughts,suicidal thoughts, or anxiety Physical Exam: Blood pressure 120/83, pulse 94, height 5' 4 (1.626 m), weight 189 lb (85.7 kg). General: Alert, NAD Respirations: Normal respiratory effort Abdomen: Soft No guarding, rebound or rigidity. Extremities: No calf tenderness and No edema bilaterally Ulsdd reviewed with patient Assessment: Diagnosis Plan 1. Pelvic pain in female [facility] Pelvic Health Therapy [facility] Comm. C[facility] PLAN: Follow up for annual. Orders Placed This Encounter Procedures [facility] Pelvic Health Therapy [place] Comm[facility] C[facility] Pelvic Health Therapy Standing Status: Future Standing Expiration Date: 06/29/2024 Referral Priority: Routine Referral Type: Therapy Referral Reason: Eval and Treat Requested Specialty: Physical Therapy Number of Visits Requested: 1 The encounter diagnosis was Pelvic pain in female. and Follow-up (results) as well as counseling on preventative health maintenance follow-up. documented in this [facility]03-01-2024 History of Present illness Narrative* Malia Valles MD - 06/09/2023 9:15 AM EST Gabe Viera 06/29[birth year]23 Date Of : 1995 HPI: Gabe Viera is a 27 y.o. female The patient was seen today. She is here regarding Pelvic pain 2 wks. Ho hem cyst. Off ocp for the last 3 wks. 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 Ran out hard time getting refills. Lmp early feb. Myrisk +vus. Review Of Systems: Constitutional: No fever, chills or malaise; No weight change or fatigue Gastrointestinal ROS: No Indigestion, Heartburn, Nausea, vomiting, Diarrhea, Constipation,or Bowel Changes Genito-Urinary ROS: No Dysuria Psych ROS: No Depression, Homicidal thoughts,suicidal thoughts, or anxiety Physical Exam: Blood pressure 114/74, pulse 88, height 5' 4 (1.626 m), weight 190 lb (86.2 kg). General: Alert, NAD Respirations: Normal respiratory effort Abdomen: Soft non-tender; No guarding, rebound or rigidity. Extremities: No calf tenderness and No edema bilaterally Pelvic: External genitalia: normal general appearance, no lesions Vaginal: normal mucosa without lesions/discharge Cervix: normal appearance, no cmt Adnexa: nontender, no pelvic masses Uterus: small, nontender Assessment: Diagnosis Plan 1. Pelvic pain in female US pelvis transvaginal POCT , urine manually resulted POCT urinalysis dipstick manually resulted 2. 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 Wants to go back on ocp Orders Placed This Encounter Procedures US pelvis transvaginal Standing Status: Future Number of Occurrences: 1 Standing Expiration Date: 06/08/2024 Sureswab(R) Advanced Vaginitis Plus, TMA ([facility]) POCT , urine manually resulted POCT urinalysis dipstick manually resulted The primary encounter diagnosis was Pelvic pain in female. A diagnosis of Vaginal discharge was also pertinent to this visit. and Follow-up (Ovarian pain right side) as well as counseling on preventative health maintenance follow-up. documented in this [facility]08-25-2023 Telephone encounter Note* Telephone Encounter - Judy Moctezuma - 12/02/2022 9:51 AM EDT Patient seen in office for the myrisk testing today. Scanned all documents into media. Called [employer]@ and s/w Adam. 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 To be pickedup before 3pm. Reference # [id number]. [id number] Miscellaneous Notes* Telephone Encounter - Judy Moctezuma - 12/02/2022 9:51 AM EDT Patient seen in office for the myrisk testing today. Scanned all documents into media. Called [employer]@ and s/w Adam. 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 To be pickedup before 3pm. Reference # [id number]. documented in this encounterSGeorgetown Behavioral [id number] History of Present illness Narrative* Malia Valles MD - 11/15/2022 8:30 AM EDT Gabe Viera 11/15/2022 Date Of : 1995 HPI: Gabe Viera is a 27 y.o. female The patient was seen today. She is here regarding fu ulsd due to pelvic pain. Right sided pain. Heavy menses. Depo in past did not like. Wants to try ocp. Weight gain with depo. And holm. Review Of Systems: Constitutional: No fever, chills or malaise Gastrointestinal ROS: No Indigestion, Heartburn, Nausea, vomiting, Diarrhea, Constipation,or Bowel Changes Genito-Urinary ROS: No Dysuria Psych ROS: No Depression, Homicidal thoughts,suicidal thoughts, or anxiety Physical Exam: Last menstrual period 10/08/2022. General: Alert, NAD Patient was seen today via Telehealth by agreement and consent. I used the following Telehealth technology: Audio capability only. Total length of call 10 minutes. The patient was offered and advisedvideo for a more comprehensive evaluation, but the patient declined or was unable to use video. Patient location: Patient Location: Home. This patient encounter is appropriate and reasonable underthe circumstances . The patient has been advised of the potential risks and limitations of this mode of treatment (including but not limited to the absence of in-person examination) and has agreed micky treated in a remote fashion in spite of them. Any and all of the patient's/patient's family's questions on this issue have been answered and I have made no promises or guarantees to the patient. The patient has also been advised to contact this office for worsening conditions or problems, and seek emergency medical treatment and/or call 911 if the patient deems either necessary. The patient sta chelsey that they are currently in the state [facility]. If the patient is a minor, permission has been obtained by the parent or guardian for the patient to receive medical care at this visit. [facility] reviewed with patient Assessment: Diagnosis Plan 1. Pelvic pain in female 2. Cyst of left ovary 3. Family history of ovarian cancer PLAN: Follow up in 2 weeks (on 11/29/2022) for myrisk testing. Ocp desired. Understands risks No orders of the defined types were placed in this encounter. Patient was seen with total face to face time of 10 minutes. More than 50% of this visit was counseling and education regarding The primary encounter diagnosis was Pelvic pain in female. Diagnoses ofCyst of left ovary and Family history of ovarian cancer were also pertinent to this visit. and Follow-up (results) as well as counseling on preventative health maintenance follow-up. documented in this [facility]07-28-2023 History of Present illness Narrative* Jeffry Balbuena MA - 11/04/2022 11:45 AM EDT ED Follow Up: Patient discharged from [facility] ED on 11/01/2022. 1. How are you feeling since your ED visit? better Have your symptoms improved or resolved? Yes 2. Were you prescribed any medications while in the ED or advised to stop any medication? Yes - If yes, were you able to fill your prescriptions? Yes -if stopped medication, what was the medication? na 3. Were you advised to schedule a follow up appointment with your provider? Yes - If no, Do you feel like you need an appointment scheduled? No - If yes, Do you need this scheduled now or has this already been scheduled? Not applicable 4. Were you able to contact the office or assistant corporate controller provider prior to your ED visit? Not applicable 5. Is there anything else I can do for you today? No Patient declined apt. Feels better. Jeffry Balbuena MA documented in this encounterGood [facility]aritan [facility]07-18-2023 History of Present illness Narrative* Malia Valles MD - 10/25/2022 7:30 AM EDT Gabe Viera 10/25/2022 Date Of : 1995 HPI: Gabe Viera is a 27 y.o. female The patient was seen today. She is here regarding intermittent right pelvic pain since nov. Worse with menses. Regular menses heavy 3-4 days. No urination or bowel issues. Sometimes n/v. No fever. Vaginal discharge yes. +Sex active. Ho bv. control none. Pain with sex. Prior pap normal. 2021. Review Of Systems: Constitutional: No fever, chills or malaise; No weight change or fatigue Gastrointestinal ROS: + Genito-Urinary ROS: No Dysuria Psych ROS: No Depression, Homicidal thoughts,suicidal thoughts, or anxiety Physical Exam: Blood pressure 110/71, pulse 90, height 5' 4 (1.626 m), weight 187 lb (84.8 kg), last menstrual period 10/08/2022. General: Alert, NAD Respirations: Normal respiratory effort Abdomen: Soft non-tender; No guarding, rebound or rigidity. Extremities: No calf tenderness and No edema bilaterally Pelvic: External genitalia: normal general appearance, no lesions Vaginal: normal mucosa +discharge Cervix: normal appearance, no cmt Adnexa: nontender, no pelvic masses Uterus: small, nontender Pelvic floor tenderness Hcg neg Assessment: Diagnosis Plan 1. Pelvic pain in female US pelvis transvaginal Sureswab(R) Advanced Vaginitis Plus, TMA ([facility]) POCT , urine manually resulted 2. 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 Pelvic floor pt will consider Orders Placed This Encounter Procedures US pelvis transvaginal Standing Status: Future Standing Expiration Date: 10/26/2023 Sureswab(R) Advanced Vaginitis Plus, TMA ([facility]) POCT , urine manually resulted The primary encounter diagnosis was Pelvic pain in female. A diagnosis of Vaginal discharge was also pertinent to this visit. and New Patient (Pain in ovaries) as well as counseling on preventative health maintenance follow-up. documented in this encounterSGeorgetown Behavioral [id number] Miscellaneous Notes* Telephone Encounter - Jeffry Balbuena MA - 08/16/2021 2:56 PM EDT Patient notified. Jeffry Balbuena MA * Telephone Encounter - Jeffry Balbuena MA - 08/16/2021 2:56 PM EDT ----- Message from Elisabet Morgan APRN.CNP sent at 08/16/2021 2:46 PM EDT ----- Pap was normal. Negative for BV, Trich, yeast documented in this encounterGood Samaritan Hospital05-04-2022 Miscellaneous Notes* Telephone Encounter - Elisabet Morgan APRN.CNP - 08/11/2021 2:49 PM EDT Already addressed. * Telephone Encounter - Avani Ragsdale MA - 08/11/2021 8:58 AM EDT ----- Message from Avani Ragsdale MA sent at 07/14/2021 1:39 PM EDT ----- Regarding: BQ Pt Recheck CBC in 4 weeks. Avani Ragsdale MA documented in this encounterGood Samaritan Hospital05-02-2022 History of Present illness Narrative* Elisabet Morgan APRN.CNP - 08/09/2021 9:50 AM EDT Images from the original note were not included. 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 Subjective Ms. Viera is a 25 year old who presents for an annual gynecologic exam with complaints, vaginal itching. Menses: cycles every 28-32 days and 7 days of flow. Contraception: condoms HPV vaccine: No Last Pap: N/A HPV: N/A History of abnormal pap: No Last mammogram: never Sexually active: Yes, currently 1 partner Last sexual contact: Last night Pain with intercourse: No Postcoital bleeding: No Vaginal itching No discharge today Review of Systems Constitutional: Negative for chills, diaphoresis and fatigue. Respiratory: Negative. Cardiovascular: Negative. Genitourinary: Negative for dysuria, frequency, hematuria, menstrual problem, urgency, vaginal discharge and vaginal pain. Obstetric History T0 L0 SAB0 IAB0 Ectopic0 Multiple0 Live Births0 PAST MEDICAL HISTORY Diagnosis Date Anxiety Asthma Bronchitis Depression Personality disorder (HCC) PAST SURGICAL HISTORY Procedure Laterality Date NONE FAMILY HISTORY Problem Relation Age of Onset Ovarian cancer Paternal Grandmother Social History Tobacco Use Smoking status: Current Every Day Smoker Packs/day: 1.00 Types: Cigarettes Smokeless tobacco: Never Used Vaping Use Vaping Use: Some days Substance Use Topics Alcohol use: No Drug use: No Current Meds gabapentin (NEURONTIN) 300 mg capsule Take 300 mg by mouth as needed. Erik Foy I have confirmed and edited as necessary the chief complaint, medications, past medical, family andsocial histories. Objective BP 114/70 (BP Site: Right Arm, BP Position: Sitting, BP Cuff Size: Regular Adult) Pulse 107 Temp 36.4 C (97.5 F) (Oral) Ht 162.6 cm (5' 4.02) Wt 87.1 kg (192 lb) LMP 06/14/2019 SpO2 97% BMI 32.94 kg/m Physical Exam Vitals and nursing note reviewed. Constitutional: Appearance: Normal appearance. Cardiovascular: Rate and Rhythm: Normal rate and regular rhythm. Heart sounds: Normal heart sounds, S1 normal and S2 normal. Genitourinary: Vagina: Normal. Cervix: Normal. Uterus: Normal. Adnexa: Right adnexa normal and left adnexa normal. 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 Neurological: Mental Status: She is alert. General Appearance: Well appearing, alert, in no acute distress, well-hydrated, well nourished.. Breast: Inspection negative. No nipple discharge or bleeding. No palpable mass and No skin changes or dimpling. Abdomen: Normal abdominal exam, Abdomen soft, non-tender. Bowel sounds normal. No masses, organomegaly. Genitourinary: No erythema of vulva. No ulceration of vulva. No swelling of vulva. No vaginal discharge. No vaginal odor. No vaginal lesion. No foreign body in vagina. No cystocele. No rectocele. No urethral discharge. No cervical motion tenderness. Uterus normal size. Uterus is immobile. No uterine tenderness. Yes cytology obtained. Data Reviewed: No new labs ASSESSMENT/PLAN: 1. Well woman exam with routine gynecological exam - ICD9: V72.31, ICD10: Z01.419 (primary diagnosis) Annual Gynecologic Examination Well Woman Exam - Completed pelvic and breast exam - Completed pap exam - check HPV - Encouraged monthly BSE - Follow up for annual exam in one year. Safe sex practices reviewed and encouraged. 2. Screening for cervical cancer - ICD9: V76.2, ICD10: Z12.4 - PAP FLUID CERVICAL SCREENING 3. Vaginal discharge - ICD9: 623.5, ICD10: N89.8 - FUNGAL SMEAR - TRICHOMONAS PREP/ANTIGEN - RAPID BACT VAGINOSIS (AK) 4. Bacterial vaginosis - ICD9: 616.10, 041.9, ICD10: N76.0, B96.89 - FUNGAL SMEAR - TRICHOMONAS PREP/ANTIGEN - RAPID BACT VAGINOSIS (AK) 5. Leukocytosis, unspecified type - ICD9: 288.60, ICD10: D72.829 - CBC + DIFF Return in about 1 year (around 08/09/2022) for well adult exam. Discussed the above with the patient using shared decision making. The patient is in agreement with the diagnostic and treatment plans. Elisabet Morgan APRN.CNP documented in this encounterGood Samaritan Hospital04-07-2022 Miscellaneous Notes* Telephone Encounter - Marilyn Campos MA - 07/15/2021 8:33 AM EDT Patient informed of all information and script sent to Connor Krishnamurthy. Marilyn Campos MA * Telephone Encounter - Elisabet Morgan APRN.CNP - 07/15/2021 8:05 AM EDT No the mountain dew would not affect the HgbA1C as this is an average over the last 3 months. She needs to cut back significantly though because this is contributing to her prediabetes which isn't helping her recurrent BV. I already sent in a prescription of Metronidazole for her because the Boric Acid isn't covered but she can buy it OTC at [facility].. This was addressed in a separate encounter. Urine was negative for trich. * Telephone Encounter - Avani Ragsdale MA - 07/14/2021 1:40 PM EDT Patient informed and reminder placed. She states that she had mountain dew about 3 hours before herblood being drawn and would like to know if that could affect it, and she states that she does havevaginal vaginosis. Avani Ragsdale MA * Telephone Encounter - Avani Ragsdale MA - 07/14/2021 1:38 PM EDT ----- Message from Elisabet Morgan APRN.CNP sent at 07/14/2021 12:14 PM EDT ----- Hep C and HIV negative HgbA1C is elevated at 6.3 which puts her in a prediabetic range (reminder her this is an average over 3 months). She needs to cut back on the junk food and stop drinking pop, increase her physical activity. Recheck in 6 months. Thyroid was normal CBC shows her WBC are slightly elevated- is she having any urinary symptoms? Please place reminder for 4 weeks to recheck. CMP showed one liver enzyme was slightly out of range- most likely due to possible fatty liver. Urine was negative for chlamydia and gonorrhea, still waiting for trich results documented in this encounterGood Samaritan Hospital04-06-2022 Miscellaneous Notes* Telephone Encounter - Elisabet Morgan APRN.CNP - 07/14/2021 12:31 PM EDT Addressed in result encounter. documented in this encounterGood Samaritan Hospital04-04-2022 Miscellaneous Notes* Telephone Encounter - Za Jimenez MA - 07/12/2021 4:26 PM EDT Called patient and left a vm per lifetime consent with information Za Jimenez MA * Telephone Encounter - Elisabet Morgan APRN.CNP - 07/12/2021 1:01 PM EDT Ok, I will send in a course of Flagyl for her to start and I would like her to see if [facility] carries the AZO boric acid suppositories. If not, she can check at [facility]. * Telephone Encounter - Za Jimenez MA - 07/12/2021 11:41 AM EDT Pharmacy called left a vm stating they cannot prescribe the boric acid vaginal suppository since itis a compound. Please advise Za Jimenez MA documented in this encounterGood Samaritan Hospital04-04-2022 Instructions* Patient Instructions* Elisabet Morgan APRN.CNP - 07/12/2021 8:46 AM EDT Images from the original note were not included. Vaginal Infection: Bacterial Vaginosis Bacterial vaginosis (BV) is due to an imbalance in the bacteria that are normally present in the vagina. The numbers of lactobacilli decrease and the numbers of certain other types of harmful bacteria increase. Cells on vaginal rachel become covered with bacteria. These bacteria-covered cells are called clue cells. The cause of this is not clearly understood. Contributing factors may include douching, or increased frequency of intercourse. Symptoms of Bacterial Vaginosis Thin, milky white or delatorre discharge Unpleasant fishy odor Irritation, itching, burning at opening of vagina (in some cases) Burning or irritation with intercourse or urination (in some cases) Treating Bacterial Vaginosis BV is often treated with antibiotic pills. In some cases, a vaginal antibiotic cream is prescribed instead. During treatment: Finish all of your medication, even if your symptoms go away. If you are taking antibiotic pills, avoid alcohol until you're finished with all of your medication. If you are using vaginal cream, apply it using the instructions on the prescription. Be aware that the cream may make condoms and diaphragms less effective. Call your doctor if symptoms persist, or if you have an allergic reaction to the medication. Why Treatment Matters Even if you have no symptoms or your symptoms are mild, BV should be treated. Untreated BV can leadto medical problems such as: Increased risk of delivery if you are . Increased risk of complications after surgery on the reproductive organs. Possible increased risk of pelvic inflammatory disease (PID). [id number] [employer], [address] [place] [address], [place] [address]. All rights reserved. This information is not intended as a substitute for professional medical care. Always follow your health care provider's instructions. documented in this encounterGood Samaritan Hospital04-04-2022 History of Present illness Narrative* Elisabet Francisco Morgan, SPECIAL SERVICES COORDINATOR.MED DIR - 07/12/2021 8:20 AM EDT Images from the original note were not included. [facility] Elisabet Morgan SPECIAL SERVICES COORDINATOR-MED DIR [address] [place] [address] Dept Dept. Visit Date: July 12, 2021 Ms.Anastasia Morenita Viera Date of : 1995 MRN/E #: [id number] Chief Complaint: Patient presents with: Establish Care History of Present Illness Gabe Viera is a 25 year old female. She is a new patient and will be establishing care here today. I reviewed past medical, surgical, social, and family histories today and updated chart. Allergies, chronic medications, and supplements were also reviewed. She hasn't been seeing any PCP for afew years. Her fiance was found to have Hep C 2 1/2 years ago and she is interested in being screened today. She hasn't Hx of recurrent BV- has it every couple weeks Itching, vaginal discharge Hasn't tried taking anything to prevent it Smoker- < 1 ppd for the 3-4 years No alcohol intake No illicit drug use Lots of caffeine and pop intake Doesn't drink much water Does not exercise LMP: 3 weeks ago Can be irregular Has been on OCP in the past but states she wasn't good at remembering to take it Currently sexually active, wears condoms but not all the time Has never had a Pap, has been tested for GC/Chlamydia in the past which was negative The history is provided by the patient. No linux architect was used. PAST MEDICAL HISTORY Diagnosis Date Anxiety Asthma Bronchitis Depression Personality disorder (HCC) PAST SURGICAL HISTORY Procedure Laterality Date NONE Social History Tobacco Use Smoking status: Current Every Day Smoker Packs/day: 1.00 Types: Cigarettes Smokeless tobacco: Never Used Vaping Use Vaping Use: Some days Substance Use Topics Alcohol use: No Drug use: No Social History Social History Narrative Not on file Family History Reviewed Including Cardiac Diseases, Psychiatric Diseases, & Substance Abuse Problem: Ovarian cancer Relation: Paternal Grandmother Age of Onset: (Not Specified) ALLERGIES Allergen Reactions Amoxicillin Swelling Penicillins Swelling Current Outpatient Medications Medication Sig boric acid vaginal suppository 600 mg (CPD) Use 1 Suppository vaginally three times a week. Unwrap and insert as directed. No current facility-administered medications for this visit. Review of Systems Review of Systems Constitutional: Positive for unexpected weight change (weight gain). Negative for appetite change, chills, diaphoresis, fatigue and fever. HENT: Negative for tinnitus and trouble swallowing. Eyes: Negative for visual disturbance. Respiratory: Negative for cough, chest tightness, shortness of breath and wheezing. Cardiovascular: Negative for chest pain, palpitations and leg swelling. Gastrointestinal: Negative for abdominal pain, blood in stool, constipation, diarrhea, nausea and vomiting. Endocrine: Negative. Genitourinary: Positive for dyspareunia (at times) and vaginal discharge. Negative for dysuria, frequency, hematuria, pelvic pain and urgency. Musculoskeletal: Negative for arthralgias, back pain, myalgias, neck pain and neck stiffness. Skin: Negative for color change and rash. Neurological: Negative for dizziness, syncope, light-headedness and headaches. Hematological: Negative for adenopathy. Does not bruise/bleed easily. Psychiatric/Behavioral: Negative for dysphoric mood and sleep disturbance. The patient is not nervous/anxious. Vital Signs BP 116/74 Pulse 87 Temp (Src) 98.4 (Oral) Ht 5' 4 (1.63m) Wt 198 lb (89.8kg) SpO2 98% LMP 06/14/2019 BMI 33.97 kg/(m^2). Physical Exam Vitals and nursing note reviewed. Constitutional: Appearance: She is obese. HENT: Head: Normocephalic. Right Ear: Tympanic membrane, ear canal and external ear normal. Left Ear: Tympanic membrane, ear canal and external ear normal. Mouth/Throat: Mouth: Mucous membranes are moist. Eyes: Pupils: Pupils are equal, round, and reactive to light. Cardiovascular: Rate and Rhythm: Normal rate and regular rhythm. Heart sounds: Normal heart sounds, S1 normal and S2 normal. Pulmonary: Effort: Pulmonary effort is normal. Breath sounds: Normal breath sounds. No wheezing or rhonchi. Abdominal: General: Bowel sounds are normal. There is no distension. Palpations: Abdomen is soft. Tenderness: There is no abdominal tenderness. Musculoskeletal: Cervical back: Neck supple. Right lower leg: No edema. Left lower leg: No edema. Lymphadenopathy: Cervical: No cervical adenopathy. Skin: General: Skin is warm and dry. Neurological: Mental Status: She is alert and oriented to person, place, and time. Psychiatric: Mood and Affect: Mood normal. Behavior: Behavior is cooperative. Cognition and Memory: Cognition normal. Visit Diagnoses (Z00.00) Well adult exam (primary encounter diagnosis) (E66.9) Obesity, Class I, BMI 30-34.9 (N76.0, B96.89) Bacterial vaginosis (Z20.5) Exposure to hepatitis C (Z11.59) Special screening examination for viral disease (Z11.4) Screening for HIV (human immunodeficiency virus) (Z11.3) Screening for STD (sexually transmitted disease) Assessment and Plan 1. Well adult exam - ICD9: V70.0, ICD10: Z00.00 (primary diagnosis) - Counseled on healthy diet and regular exercise - Calcium intake with supplements or by diet of 1000 mg/day for under 50, 1200- 1500 mg/day for 50+ - Discussed need and benefit for weight loss. BMI 33.99 kg/(m^2) - Check annual GC/Chlamydia for sexually active under 25 or 25+ at increased risk - Smoking cessation encouraged; discussed risks to health and quitting strategies. Patient is not ready to quit - Discussed safe sex practices and avoidance of STIs - Depression screening tool completed and reviewed with patient. Based on score and interview, patient is not at risk for depression and recommended no further intervention at this time. - Follow up for annual exam in one year - COMP METABOLIC PANEL - CBC + DIFF - TSH BLD - HGB A1C 2. Obesity, Class I, BMI 30-34.9 - ICD9: 278.00, ICD10: E66.9 Newly diagnosed - Behavioral intervention - TSH BLD 3. Bacterial vaginosis - ICD9: 616.10, 041.9, ICD10: N76.0, B96.89 - Start daily probiotics - Hygiene - Will trial boric acid suppositories, will ineffective may have to discuss suppressive therapy - BORIC ACID 600 MG VAGINAL SUPPOSITORY (CPD) 4. Exposure to hepatitis C - ICD9: V01.79, ICD10: Z20.5 - Check Hep C 5. Special screening examination for viral disease - ICD9: V73.99, ICD10: Z11.59 - HEP C AB IA W/CONF SCRN 6. Screening for HIV (human immunodeficiency virus) - ICD9: V73.89, ICD10: Z11.4 - HIV 1 2 COMBO(AG/AB),WITH REFLEX TO DIFFERENTIATION 7. Screening for STD (sexually transmitted disease) - ICD9: V74.5, ICD10: Z11.3 - GC/CHLAMYDIA AMPLIF, URINE - T VAGINALIS AMPLIFICATION Discussed above plan with patient and is agreeable to the plan. Follow up visit Return in about 4 weeks (around 08/09/2021) for with Pap. Elisabet Morgan APRN.CNP, signed on July 12, 2021 8:20 AM [facility] Diagnosis Well adult exam- Primary Routine general medical examination at a health care facility Obesity, Class I, BMI 30-34.9 Obesity, unspecified Bacterial vaginosis Vaginitis and vulvovaginitis, unspecified Exposure to hepatitis C Contact with or exposure to other viral diseases Special screening examination for viral disease Special screening examination for unspecified viral disease Screening for HIV (human immunodeficiency virus) Special screening examination for other specified viral diseases Screening for STD (sexually transmitted disease) Screening examination for venereal disease documented in this encounter [facility] note* Diagnosis BV (bacterial vaginosis) Vaginitis and vulvovaginitis, unspecified documented in this encounter [facility] note* Diagnosis Well woman exam with routine gynecological exam- Primary Routine gynecological examination Screening for cervical cancer Screening for malignant neoplasm of the cervix Vaginal discharge Leukorrhea, not specified as infective Bacterial vaginosis Vaginitis and vulvovaginitis, unspecified Leukocytosis, unspecified type documented in this encounter [facility] note* Diagnosis Pelvic pain in female- Primary Unspecified symptom associated with female genital organs Vaginal discharge Leukorrhea, not specified as infective documented in this encounter [facility] note* Diagnosis Pelvic pain in female- Primary Unspecified symptom associated with female genital organs Cyst of left ovary Other and unspecified ovarian cyst Family history of ovarian cancer Family history of malignant neoplasm of ovary documented in this encounter [facility] note* Diagnosis Onset Date Resolution Status Acute streptococcal pharyngitis acute Contact with and (suspected) exposure to other viral communicable diseases acute Cough acute [facility] Work Phone: Evaluation note* Diagnosis Pelvic pain in female- Primary Unspecified symptom associated with female genital organs Vaginal discharge Leukorrhea, not specified as infective Pelvic pain in female Unspecified symptom associated with female genital organs documented in this encounter [facility] note* Diagnosis Pelvic pain in female- Primary Unspecified symptom associated with female genital organs documented in this encounter [facility] note* Diagnosis Right lateral abdominal pain- Primary Abdominal pain, unspecified site Right lower quadrant abdominal pain Abdominal pain, right lower quadrant Rectal bleeding Hemorrhage of rectum and anus Dyspareunia in female documented in this encounter [facility] note* Diagnosis Right lower quadrant abdominal pain Abdominal pain, right lower quadrant documented in this encounter [facility] note* Diagnosis Right lower quadrant abdominal pain- Primary Abdominal pain, right lower quadrant Prediabetes Other abnormal glucose Glucose found in urine on examination Glycosuria Proteinuria, unspecified type Itching in the vaginal area Pruritus of genital organs documented in this encounter [facility] note* Diagnosis Lightheadedness- Primary Dizziness and giddiness Screening for thyroid disorder Vaginal irritation Unspecified noninflammatory disorder of vagina documented in this encounter [facility] note* Diagnosis Pleuritic chest pain- Primary Painful respiration Acute cough documented in this encounter [facility] note* Diagnosis 4 weeks gestation of (HCC)- Primary state, incidental documented in this encounter [facility] noteNo assessment information availableWLima [facility] Hospital Work Phone: Evaluation note* Diagnosis Pelvic pain in (HCC)- Primary Other specified complication of , unspecified as to episode of care Bleeding in early ([facility]) Unspecified hemorrhage in early , unspecified as to episode of care documented in this encounter [facility] note* Diagnosis Non-recurrent acute suppurative otitis media of left ear without spontaneous rupture of tympanic membrane- Primary Sore throat Acute pharyngitis First trimester (HCC) state, incidental documented in this encounter [facility] note* Diagnosis Cramping affecting , antepartum ([facility])- Primary Vaginal discharge Leukorrhea, not specified as infective Vaginal spotting Other specified noninflammatory disorder of vagina 10 weeks gestation of (HCC) state, incidental Use of nicotine during ([facility]) Nausea and vomiting during ([facility]) [facility] Diagnosis Encounter for supervision of high risk in first trimester, antepartum (HCC)- Primary Cramping affecting , antepartum (HCC) Vaginal spotting Other specified noninflammatory disorder of vagina 12 weeks gestation of ([facility]) state, incidental * Assessment & Plan Note - Sudarshan Hong MD - 09/05/2024 2:47 PM EDTAssociated Problem(s): Encounter for supervision of high risk in first trimester, antepartum ([facility]) Orders: UA DIP, URINE (POC) BACTERIAL CULTURE, URINE documented in this encounter [facility] note* Diagnosis Encounter for supervision of high risk in first trimester, antepartum (HCC)- Primary Cramping affecting , antepartum (HCC) Vaginal spotting Other specified noninflammatory disorder of vagina 12 weeks gestation of ([facility]) state, incidental Encounter for screening for malformation using ultrasound ([facility])- Primary Encounter for (NT) nuchal translucency scan ([facility]) Other specified screening 13 weeks gestation of ([facility]) state, incidental documented in this encounter [facility] note* Diagnosis Encounter for supervision of high risk in first trimester, antepartum (HCC)- Primary Cramping affecting , antepartum (HCC) Vaginal spotting Other specified noninflammatory disorder of vagina 12 weeks gestation of (HCC) state, incidental 13 weeks gestation of ([facility])- Primary state, incidental Encounter for supervision of high risk in first trimester, antepartum (HCC) documented in this encounter [facility] note* Diagnosis Encounter for supervision of high risk in first trimester, antepartum (HCC)- Primary Cramping affecting , antepartum (HCC) Vaginal spotting Other specified noninflammatory disorder of vagina 12 weeks gestation of ([facility]) state, incidental Encounter for supervision of high risk in second trimester, antepartum (HCC)- Primary 16 weeks gestation of ([facility]) state, incidental [facility] Encounter for supervision of high risk in first trimester, antepartum (HCC)- Primary Cramping affecting , antepartum (HCC) Vaginal spotting Other specified noninflammatory disorder of vagina 12 weeks gestation of (HCC) state, incidental Encounter for supervision of high risk in first trimester, antepartum (HCC) [facility]* Diagnosis Encounter for supervision of high risk in first trimester, antepartum (HCC)- Primary Cramping affecting , antepartum (HCC) Vaginal spotting Other specified noninflammatory disorder of vagina 12 weeks gestation of (HCC) state, incidental Encounter for supervision of high risk in second trimester, antepartum (HCC)- Primary 20 weeks gestation of ([facility]) state, incidental [facility]* Diagnosis Encounter for supervision of high risk in first trimester, antepartum (HCC)- Primary Cramping affecting , antepartum (HCC) Vaginal spotting Other specified noninflammatory disorder of vagina 12 weeks gestation of ([facility]) state, incidental Screening for diabetes mellitus- Primary 24 weeks gestation of ([facility]) state, incidental Encounter for supervision of high risk in second trimester, antepartum (HCC) Pain with urination Renal colic Vaginal discharge Leukorrhea, not specified as infective [facility]* Diagnosis Encounter for supervision of high risk in first trimester, antepartum (HCC)- Primary Cramping affecting , antepartum (HCC) Vaginal spotting Other specified noninflammatory disorder of vagina 12 weeks gestation of ([facility]) state, incidental Encounter for supervision of high risk in second trimester, antepartum (HCC)- Primary Decreased movements in second trimester, single or unspecified fetus ([facility]) 25 weeks gestation of ([facility]) state, incidental [facility]* Diagnosis Left arm pain- Primary Pain in soft tissues of limb documented in this encounter [facility] Work Phone: Evaluation note* Diagnosis state, incidental ([facility])- Primary state, incidental Close exposure to COVID-19 virus Fatigue, unspecified type documented in this encounter [facility] Work Phone: Hospital Discharge instructions Additional Instructions Thank you for trusting us with your care today! Please take Tylenol (2 pills, 650 mg)every 6 hours as needed for pain and fever control. Please return to the emergency department if your symptoms change or worsen. Please follow with your primary care physician for further outpatient evaluation and management.[facility] Work Phone: Reason for referral (narrative)No reason for referral information availableWLima Memorial Hospital Work Phone: Summary Purpose Family History No Family History Records FoundNo Family History Records FoundNo Family History Records FoundNo Family History Records FoundNo Family History Records FoundNo Family History Records FoundNo Family History Records FoundNo Family History Records Found Advance Directives No Advanced Directives Records FoundDocuments on File Type Date Recorded 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 No July 15, 2024 6:55pm Advance Directives No May 04, 2017 12:50pm Chief Complaint and Reason for Visit Chief Complaint POSSIBLE BRONCHITIS EORDER- CXR- cough Reason for Visit Acute streptococcal pharyngitis Contact with and (suspected) exposure to other viral communicable diseases Cough Chief Complaint Admit Date ABDOMINAL PAIN July 15, 2024 4:35 pm Reason for Referral Specialty Diagnoses / Procedures Referred By Cathy mejia Referred To Contact Physical Therapy Diagnoses Pelvic pain in female Procedures ND OFFICE/OUTPATIENT NEW HIGH MDM 60 MINUTES Malia Valles MD [address] [place] [address] [facility] [address] [place] [address] Referral ID Status Reason Start Date Expiration Date Visits Requested Visits Authorized [id number] Pending Review Eval and Treat 06/30/2023 06/24/2024 99 99 Specialty Diagnoses / Procedures Referred By Contac t Referred To Contact [facility] DEPARTMENT Diagnoses Dyspareunia in female Procedures CONSULT TO DIAPER FOLDER OFFICE/OUTPATIENT NEW HIGH MDM 60 MINUTES Sylvia Becker, SPECIAL SERVICES COORDINATOR.MED DIR [address] [place] [address] [place] [address] Referral ID Status Reason Start Date Expiration Date Visits Requested Visits Authorized [id number] Authorized PCP Requested Referral Auto-Generate d Referral 07/10/2023 07/09/2024 1 1 Specialty Diagnoses / Procedures Referred By Contac t Referred To Contact CT IMAGING Diagnoses Right lower quadrant abdominal pain Procedures CT ABD/PEL W IVCON CT ABD & PELVIS W/CONTRAST Sylvia Becker, SPECIAL SERVICES COORDINATOR.MED DIR [address] [place] [address] [place] [address] Referral ID Status Reason Start Date Expiration Date V isits Requested Visits Authorized [id number] Closed Auto-Generate d Referral 07/10/2023 08/08/2024 1 1 Additional Source Comments INFORMATION SOURCE (unrecogn ized section and content) DATE CREATED AUTHOR 07/08/2018 [employer] [facility] DATE CREATED AUTHOR AUTHOR'S ORGANIZ ATION 11/09/2018 [email or web address] [facility] [employer] DATE CREATED AUTHOR AUTHOR'S ORGANIZ ATION 06/27/2019 [facility] DATE CREATED AUTHOR AUTHOR'S ORGANIZ ATION 12/24/2019 [facility] DATE CREATED AUTHOR AUTHOR'S ORGANIZ ATION 06/14/2024 [email or web address] [facility] [employer] [facility] DATE CREATED AUTHOR AUTHOR'S ORGANIZ ATION 09/05/2024 [facility] DATE CREATED AUTHOR AUTHOR'S ORGANIZ ATION 01/26/2025 [facility] DATE CREATED AUTHOR AUTHOR'S ORGANIZ ATION 02/20/2025 [facility] Source Comments (unrecognize d section and content) In the event this informatio n is protected by the Federal Confidentiality of Alcohol and Drug Abuse Patient Records regulations: The Federal rules restrict any use of the information to criminally investigate or prosecute any alcohol or drug abuse patient.[facility] the event this information is protected by the Federal Confidentiality of Alcohol and Drug Abuse Patient Records regulations: The Federal rules restrict any use of the information to criminally investigate or prosecute any alcohol or drug abuse patient.[facility] HospitalIn the event this information is protected by the Federal Confidentiality of Alcohol and Drug Abuse Patient Records regulations: The Federal rules restrict any use of the information to criminally investigate or prosecute any alcohol or drug abuse patient.[facility] HospitalIn the event this information is protected by the Federal Confidentiality of Alcohol and Drug Abuse Patient Records regulations: The Federal rules restrict any use of the information to criminally investigate or prosecute any alcohol or drug abuse patient.[facility] HospitalIn the event this information is protected by the Federal Confidentiality of Alcohol and Drug Abuse Patient Records regulations: The Federal rules restrict any use of the information to criminally investigate or prosecute any alcohol or drug abuse patient.[facility] HospitalIn the event this information is protected by the Federal Confidentiality of Alcohol and Drug Abuse Patient Records regulations: The Federal rules restrict any use of the information to criminally investigate or prosecute any alcohol or drug abuse patient.[facility] HospitalIn the event this information is protected by the Federal Confidentiality of Alcohol and Drug Abuse Patient Records regulations: The Federal rules restrict any use of the information to criminally investigate or prosecute any alcohol or drug abuse patient.[facility] HospitalIn the event this information is protected by the Federal Confidentiality of Alcohol and Drug Abuse Patient Records regulations: The Federal rules restrict any use of the information to criminally investigate or prosecute any alcohol or drug abuse patient.[facility] HospitalIn the event this information is protected by the Federal Confidentiality of Alcohol and Drug Abuse Patient Records regulations: The Federal rules restrict any use of the information to criminally investigate or prosecute any alcohol or drug abuse patient.[facility] HospitalIn the event this information is protected by the Federal Confidentiality of Alcohol and Drug Abuse Patient Records regulations: The Federal rules restrict any use of the information to criminally investigate or prosecute any alcohol or drug abuse patient.[facility] HospitalIn the event this information is protected by the Federal Confidentiality of Alcohol and Drug Abuse Patient Records regulations: The Federal rules restrict any use of the information to criminally investigate or prosecute any alcohol or drug abuse patient.[facility] HospitalIn the event this information is protected by the Federal Confidentiality of Alcohol and Drug Abuse Patient Records regulations: The Federal rules restrict any use of the information to criminally investigate or prosecute any alcohol or drug abuse patient.[facility] HospitalIn the event this information is protected by the Federal Confidentiality of Alcohol and Drug Abuse Patient Records regulations: The Federal rules restrict any use of the information to criminally investigate or prosecute any alcohol or drug abuse patient.[facility] HospitalIn the event this information is protected by the Federal Confidentiality of Alcohol and Drug Abuse Patient Records regulations: The Federal rules restrict any use of the information to criminally investigate or prosecute any alcohol or drug abuse patient.[facility] HospitalIn the event this information is protected by the Federal Confidentiality of Alcohol and Drug Abuse Patient Records regulations: The Federal rules restrict any use of the information to criminally investigate or prosecute any alcohol or drug abuse patient.[facility] HospitalIn the event this information is protected by the Federal Confidentiality of Alcohol and Drug Abuse Patient Records regulations: The Federal rules restrict any use of the information to criminally investigate or prosecute any alcohol or drug abuse patient.[facility] HospitalIn the event this information is protected by the Federal Confidentiality of Alcohol and Drug Abuse Patient Records regulations: The Federal rules restrict any use of the information to criminally investigate or prosecute any alcohol or drug abuse patient.[facility] HospitalIn the event this information is protected by the Federal Confidentiality of Alcohol and Drug Abuse Patient Records regulations: The Federal rules restrict any use of the information to criminally investigate or prosecute any alcohol or drug abuse patient.[facility] HospitalIn the event this information is protected by the Federal Confidentiality of Alcohol and Drug Abuse Patient Records regulations: The Federal rules restrict any use of the information to criminally investigate or prosecute any alcohol or drug abuse patient.[facility] HospitalIn the event this information is protected by the Federal Confidentiality of Alcohol and Drug Abuse Patient Records regulations: The Federal rules restrict any use of the information to criminally investigate or prosecute any alcohol or drug abuse patient.[facility] HospitalIn the event this information is protected by the Federal Confidentiality of Alcohol and Drug Abuse Patient Records regulations: The Federal rules restrict any use of the information to criminally investigate or prosecute any alcohol or drug abuse patient.[facility] HospitalIn the event this information is protected by the Federal Confidentiality of Alcohol and Drug Abuse Patient Records regulations: The Federal rules restrict any use of the information to criminally investigate or prosecute any alcohol or drug abuse patient.[facility] HospitalIn the event this information is protected by the Federal Confidentiality of Alcohol and Drug Abuse Patient Records regulations: The Federal rules restrict any use of the information to criminally investigate or prosecute any alcohol or drug abuse patient.[facility] HospitalIn the event this information is protected by the Federal Confidentiality of Alcohol and Drug Abuse Patient Records regulations: The Federal rules restrict any use of the information to criminally investigate or prosecute any alcohol or drug abuse patient.[facility] HospitalIn the event this information is protected by the Federal Confidentiality of Alcohol and Drug Abuse Patient Records regulations: The Federal rules restrict any use of the information to criminally investigate or prosecute any alcohol or drug abuse patient.[facility] HospitalIn the event this information is protected by the Federal Confidentiality of Alcohol and Drug Abuse Patient Records regulations: The Federal rules restrict any use of the information to criminally investigate or prosecute any alcohol or drug abuse patient.[facility] HospitalIn the event this information is protected by the Federal Confidentiality of Alcohol and Drug Abuse Patient Records regulations: The Federal rules restrict any use of the information to criminally investigate or prosecute any alcohol or drug abuse patient.[facility] HospitalIn the event this information is protected by the Federal Confidentiality of Alcohol and Drug Abuse Patient Records regulations: The Federal rules restrict any use of the information to criminally investigate or prosecute any alcohol or drug abuse patient.[facility] HospitalIn the event this information is protected by the Federal Confidentiality of Alcohol and Drug Abuse Patient Records regulations: The Federal rules restrict any use of the information to criminally investigate or prosecute any alcohol or drug abuse patient.[facility] HospitalIn the event this information is protected by the Federal Confidentiality of Alcohol and Drug Abuse Patient Records regulations: The Federal rules restrict any use of the information to criminally investigate or prosecute any alcohol or drug abuse patient.[facility] HospitalIn the event this information is protected by the Federal Confidentiality of Alcohol and Drug Abuse Patient Records regulations: The Federal rules restrict any use of the information to criminally investigate or prosecute any alcohol or drug abuse patient.[facility] HospitalIn the event this information is protected by the Federal Confidentiality of Alcohol and Drug Abuse Patient Records regulations: The Federal rules restrict any use of the information to criminally investigate or prosecute any alcohol or drug abuse patient.[facility] HospitalIn the event this information is protected by the Federal Confidentiality of Alcohol and Drug Abuse Patient Records regulations: The Federal rules restrict any use of the information to criminally investigate or prosecute any alcohol or drug abuse patient.[facility] HospitalIn the event this information is protected by the Federal Confidentiality of Alcohol and Drug Abuse Patient Records regulations: The Federal rules restrict any use of the information to criminally investigate or prosecute any alcohol or drug abuse patient.[facility] HospitalIn the event this information is protected by the Federal Confidentiality of Alcohol and Drug Abuse Patient Records regulations: The Federal rules restrict any use of the information to criminally investigate or prosecute any alcohol or drug abuse patient.[facility] HospitalIn the event this information is protected by the Federal Confidentiality of Alcohol and Drug Abuse Patient Records regulations: The Federal rules restrict any use of the information to criminally investigate or prosecute any alcohol or drug abuse patient.[facility] HospitalIn the event this information is protected by the Federal Confidentiality of Alcohol and Drug Abuse Patient Records regulations: The Federal rules restrict any use of the information to criminally investigate or prosecute any alcohol or drug abuse patient.[facility] HospitalIn the event this information is protected by the Federal Confidentiality of Alcohol and Drug Abuse Patient Records regulations: The Federal rules restrict any use of the information to criminally investigate or prosecute any alcohol or drug abuse patient.[facility] HospitalIn the event this information is protected by the Federal Confidentiality of Alcohol and Drug Abuse Patient Records regulations: The Federal rules restrict any use of the information to criminally investigate or prosecute any alcohol or drug abuse patient.[facility] HospitalIn the event this information is protected by the Federal Confidentiality of Alcohol and Drug Abuse Patient Records regulations: The Federal rules restrict any use of the information to criminally investigate or prosecute any alcohol or drug abuse patient.[facility] HospitalIn the event this information is protected by the Federal Confidentiality of Alcohol and Drug Abuse Patient Records regulations: The Federal rules restrict any use of the information to criminally investigate or prosecute any alcohol or drug abuse patient.[facility] HospitalIn the event this information is protected by the Federal Confidentiality of Alcohol and Drug Abuse Patient Records regulations: The Federal rules restrict any use of the information to criminally investigate or prosecute any alcohol or drug abuse patient.[facility] HospitalIn the event this information is protected by the Federal Confidentiality of Alcohol and Drug Abuse Patient Records regulations: The Federal rules restrict any use of the information to criminally investigate or prosecute any alcohol or drug abuse patient.[facility] HospitalIn the event this information is protected by the Federal Confidentiality of Alcohol and Drug Abuse Patient Records regulations: The Federal rules restrict any use of the information to criminally investigate or prosecute any alcohol or drug abuse patient.[facility] Reason for Visit (unrecogniz ed section and content) Reason Comments Establish Care Reason Comments Rx Refills 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 The pain is sharp and dull. The pain is everyday but comes and goes. She does have blood when she wipes after a BMTreatment: ibuprofen, tylenol, and heating pad Specialty Diagnoses / Procedures Referred By Cathy mejia Referred To Contact CT IMAGING Diagnoses Right lower quadrant abdominal pain Procedures CT ABD/PEL W IVCON CT ABD & PELVIS W/CONTRAST Sylvia Becker, SPECIAL SERVICES COORDINATOR.MED DIR [address] [place] [address] [place] [id number] Referral ID Status Reason Start Date Expiration Date V isits Requested Visits Authorized [id number] Closed Auto-Generate d Referral 07/10/2023 08/08/2024 1 1 Reason Comments 4 week f/u abd pain Location: lower abdo men Pain scale: 1Duration: Chronic pain for past year and a halfDescription: pressure past 2 days its been hard to the touchTreatment: nothing Reason Comments Headache Light headedness sta rted two weeks ago, not having headaches anymore but still getting light headed every day, light headed all the time and weakness. Denies any other symptoms possible yeast infection Or BV, having p asty/yellowish vaginal discharge and itching that started last week Reason Comments Chest Pain Reason Onset Date Comments [facility] Reason Comments Problem Visit Reason Comments Bleeding With Reason Comments Headache Nausea,vomiting due to but last night got worse. Headache 3 days Swollen tonsils yesterday sore throat discomfort when swallowing Voice is raspy at times since yesterday did not test for covid. Reason Onset Date Comments Results 08/18/2024 Reason Comments FMLA Paperwork Reason Comments Early OB Spotting Reason Comments Problem Visit Reason Onset Date Comments ED Follow-up 08/29/2024 [facility] 2024 Reason Comments ER F/U Reason Onset Date Comments Care 09/05/2024 Reason Comments US Specialty Diagnoses / Procedures Referred By Cathy mejia Referred To Contact [facility]NOTE 3] Diagnoses Encounter for supervision of high risk in first trimester, antepartum (HCC) Procedures OBSTETRIC ULTRASOUND WHI US PREG UTERUS AFTER 1ST TRIMEST GESTATION Freda Santillan APRN.MED DIR [address] [place] [address] Phone: tel: fax: [facility] [address] [place] [address] Referral ID Status Reason Start Date Expiration Date V isits Requested Visits Authorized [id number] Closed Auto-Generate d Referral 08/01/2024 08/01/2025 1 1 Reason Onset Date Comments Care 09/11/2024 Reason Onset Date Comments Care 10/03/2024 Reason Comments Records Referral ID Status Reason Start Date Expiration Date V isits Requested Visits Authorized [id number] Closed Auto-Generate d Referral 08/01/2024 08/01/2025 1 1 Reason Onset Date Comments Care 10/31/2024 Reason Onset Date Comments Care 11/28/2024 Reason Onset Date Comments Care 12/04/2024 Reason Comments Numbness Reason Comments Illness Care Teams (unrecognized sec tion and content) Director Environmental Relationship Specialty Start Date End Date Elisabet Morgan, SPECIAL SERVICES COORDINATOR.MED DIR [address] [place], [place] [id number] PCP - General Family Practice 07/12/21 Director Environmental Relationship Specialty Start Date End Date Elisabet Morgan, SPECIAL SERVICES COORDINATOR.MED DIR [address] [place], [place] [id number] PCP - General Family Practice 07/12/21 Director Environmental Relationship Specialty Start Date End Date Elisabet Morgan, SPECIAL SERVICES COORDINATOR.MED DIR [address] [place], [place] [id number] PCP - General Family Practice 07/12/21 Director Environmental Relationship Specialty Start Date End Date Elisabet Morgan, SPECIAL SERVICES COORDINATOR.MED DIR [address] [place], [place] [id number] PCP - General Family Practice 07/12/21 Director Environmental Relationship Specialty Start Date End Date Elisabet Morgan, SPECIAL SERVICES COORDINATOR.MED DIR [address] [place] [address] PCP - General Family Practice 07/12/21 Director Environmental Relationship Specialty Start Date End Date Joselyn Lovelace MD [address] [place] [address], [address] [place], [place] [id number] PCP - General 11/15/18 Director Environmental Relationship Specialty Start Date End Date Elisabet Morgan, SPECIAL SERVICES COORDINATOR.MED DIR [address] [place], [place] [id number] PCP - General Family Medicine 07/12/21 Director Environmental Relationship Specialty Start Date End Date Joselyn Lovelace MD [address] [place] [address], [address] [place], [place] [id number] PCP - General 11/15/18 Team Status: Active Member Role Status Dates No Primary Care Physician Family Provider Active No Primary Care Physician Primary Care Provider Active Team Status: Inactive Member Role Status Dates No Primary Care Physician Primary Care Provider, Refer ring Provider Active MEGHAN Corey Attending Provider Active Team Status: Inactive Member Role Status Dates No Primary Care Physician Primary Care Provider Active Amparo CHRISTIANSON PA Attending Provider, Referring Pr ovider Active Director Environmental Relationship Specialty Start Date End Date Joselyn Lovelace MD [address] [place] [address] [address] [place], [place] [id number] PCP - General 11/15/18 Director Environmental Relationship Specialty Start Date End Date Joselyn Lovelace MD [address] [place] [address] [address] [place], [place] [id number] PCP - General 11/15/18 Director Environmental Relationship Specialty Start Date End Date Elisabet Morgan, SPECIAL SERVICES COORDINATOR.MED DIR [address] [facility] [place] [place] [address] PCP - General Family Medicine 07/12/21 Director Environmental Relationship Specialty Start Date End Date Elisabet Morgan, SPECIAL SERVICES COORDINATOR.MED DIR [address] [facility] [place] [address] PCP - General Family Medicine 07/12/21 Director Environmental Relationship Specialty Start Date End Date Elisabet Morgan, SPECIAL SERVICES COORDINATOR.MED DIR [address] [facility] [place] [address] PCP - General Family Medicine 07/12/21 Director Environmental Relationship Specialty Start Date End Date Elisabet Morgan, SPECIAL SERVICES COORDINATOR.MED DIR [address] [place] [address] PCP - General Family Medicine 07/12/21 Director Environmental Relationship Specialty Start Date End Date Elisabet Morgan, SPECIAL SERVICES COORDINATOR.MED DIR [address] [place], [place] [phone] PCP - General Family Medicine 07/12/21 Director Environmental Relationship Specialty Start Date End Date Elisabet Morgan, SPECIAL SERVICES COORDINATOR.MED DIR [address] [place], [place] [phone] PCP - General Family Medicine 07/12/21 Director Environmental Relationship Specialty Start Date End Date Elisabet Morgan, SPECIAL SERVICES COORDINATOR.MED DIR [address] [place] [address] PCP - General Family Medicine 07/12/21 Director Environmental Relationship Specialty Start Date End Date Elisabet Morgan, SPECIAL SERVICES COORDINATOR - MED DIR [address] [place] [address] PCP - General Family Medicine 07/12/21 Team Status: Active Member Role Status Dates Elisabet Morgan POWER GRADER OPERATOR, POWER GRADER OPERATOR-C Primary Care Provider Active Team Status: Inactive Member Role Status Dates Dr. Jacinto Abarca , DO Emergency Provider Active Start: July 15, 2024 End: July 15, 2024 Elisabet Morgan POWER GRADER OPERATOR, POWER GRADER OPERATOR-C Primary Care Provider Active Start: July 15, 2024 End: July 15, 2024 Director Environmental Relationship Specialty Start Date End Date Elisabet Morgan, SPECIAL SERVICES COORDINATOR.MED DIR [address] [place] [address] PCP - General Family Medicine 07/12/21 Director Environmental Relationship Specialty Start Date End Date QuedenElisabet A, SPECIAL SERVICES COORDINATOR.MED DIR [address] [place] [address] PCP - General Family Medicine 07/12/21 Director Environmental Relationship Specialty Start Date End Date QueElisabet pablo A, SPECIAL SERVICES COORDINATOR.MED DIR [address] [place] [address] PCP - General Family Medicine 07/12/21 Director Environmental Relationship Specialty Start Date End Date QuedenElisabet A, SPECIAL SERVICES COORDINATOR.MED DIR [address] [place] [address] PCP - General Family Medicine 07/12/21 Director Environmental Relationship Specialty Start Date End Date QueElisabet pablo A, SPECIAL SERVICES COORDINATOR.MED DIR [address] [place] [address] PCP - General Family Medicine 07/12/21 Director Environmental Relationship Specialty Start Date End Date Elisabet Morgan A, SPECIAL SERVICES COORDINATOR.MED DIR [address] [place] [address] PCP - General Family Medicine 07/12/21 Director Environmental Relationship Specialty Start Date End Date QueElisabet pablo A, SPECIAL SERVICES COORDINATOR.MED DIR [address] [place] [address] PCP - General Family Medicine 07/12/21 Director Environmental Relationship Specialty Start Date End Date QueElisabet pablo A, SPECIAL SERVICES COORDINATOR.MED DIR [address] [place] [address] PCP - General Family Medicine 07/12/21 Director Environmental Relationship Specialty Start Date End Date QuedenElisabet A, SPECIAL SERVICES COORDINATOR.MED DIR [address] [place] [address] PCP - General Family Medicine 07/12/21 Director Environmental Relationship Specialty Start Date End Date Elisabet Morgan, SPECIAL SERVICES COORDINATOR.MED DIR [address] [place] [address] PCP - General [facility] Medicine 07/12/21 Director Environmental Relationship Specialty Start Date End Date Elisabet Morgan, SPECIAL SERVICES COORDINATOR.MED DIR [address] [place] [address] PCP - [facility] Medicine 07/12/21 Director Environmental Relationship Specialty Start Date End Date Elisabet Morgan, SPECIAL SERVICES COORDINATOR.MED DIR [address] [place] [place], [place] [phone] PCP - [facility] Medicine 07/12/21 Director Environmental Relationship Specialty Start Date End Date Elsiabet Morgan, SPECIAL SERVICES COORDINATOR.MED DIR [address] [place] [address] PCP - General [facility] Medicine 07/12/21 Goals (unrecognized section and content) Goals may be documented in a n alternate sectionGoals may be documented in an alternate section Scheduled Active and Recently Administ ered Medications (unrecognized section and content) Medication Order 06/10/2024 06/11/2024 06/12/2024 benzonatate (Tessalon) capsule 200 mg (COMPLETED) 200 mg, Oral, Once, On Mon06/12/24 at 1555, For 1 dose, Do not crush or chew. 1618 (Given - Provid er: Elisa Melton, KATIE) ketorolac (Toradol) injection 15 mg (COMPLETED) 15 mg, IntraVENous, Once, On Mon06/12/24 at 1555, For 1 dose 1618 (Given - Provid er: Elisa Melton RN) FOR RECORDS PERTAINING TO PATIENTS WHO ARE OR HAVE BEEN ENROLLED IN A CHEMICAL DEPENDENCY/SUBSTANCEABUSE PROGRAM, SOME INFORMATION MAY BE OMITTED. This clinical summary was aggregated from multiple sources. Caution should be exercised in using it in the provision of clinical care. This summary normalizes information from multiple sources, and as a consequence, information in this document may materially change the coding, format and clinical context of patient data. In addition, data may be omitted in some cases. CLINICAL DECISIONS SHOULD BE BASED ON THE PRIMARY CLINICAL RECORDS. [facility]. provides no warranty or guarantee of the accuracy or completeness of information in this document.
[2025-03-09 03:28] VITALS: BP 125/83; PULSE 88; RESP 16; TEMP 36.6; O2SAT 97
[2025-03-09 03:29] VITALS: TEMP 36.6
[2025-03-09 03:35] VITALS: BMI 34.7
[2025-03-09 03:58] LABS: Mucous, Urine 0 SEEN /hpf (<or=2+)
[2025-03-09 03:59] LABS: Color, Urine Yellow (Yellow); Glucose, Dipstick Normal (Normal); Ketone-Dipstick 5 mg/dl (Negative); Leukocyte Esterase-Dipstick 25 /ul (Negative); Nitrite-Dipstick Negative (Negative); Occult Blood-Urine Negative /ul (Negative); Protein-Dipstick 30 mg/dl (Negative); Specific Gravity, Urine 1.025 (1.002-1.030); Urine Bilirubin Dipstick Negative (Negative)
[2025-03-09 04:18] LABS: Red Blood Cells-Urine 0-5 SEEN /hpf (0-5); Squamous Epithelial Cells - UA 10-25 SEEN /hpf (5-10)
[2025-03-09 04:55] VITALS: BP 121/75; PULSE 75
--- NOTE | 2025-03-10 06:59 | OB.TRI.NOTE ---
HPI - General General Date of Admission: 03/09/25 Date of Service: 03/09/25 Chief Complaint: R/o labor HPI Narrative GABE DONALDSON, is a 29 F who presents r/o labor. No cervical change made. Discharge with labor precautions. Maternal Data Information Final TORRI: 03/15/25 Gestational age: 39+1 PFSH [facility] Medical History Contact with and (suspected) exposure to other viral communicable diseases Acute streptococcal pharyngitis COVID-19 URI (upper respiratory infection) Home Medications ?Medication ?Instructions ?Recorded ?Last Taken ?Type gtegsyoaznlodrj-wlhllcsgguwkdfy-VG 10 ml PO Q4H PRN 12/06/22 Unknown History 2 mg-30 mg-10 mg/5 mL oral syrup clindamycin HCl 300 mg capsule 300 mg PO Q8H 12/06/22 Unknown History methylprednisolone 4 mg tablets in See Rx Instructions PO PER PKG DIR 12/06/22 Unknown Rx a dose pack (Medrol (Landry)) #21 tabs norgestimate 0.25 mg-ethinyl 1 tab PO DAILY 12/06/22 Unknown History estradiol 0.035 mg tablet ([place]) ferrous sulfate 325 mg (65 mg 325 mg PO DAILY 03/09/25 03/08/25 23:00 History iron) tablet (Feosol) vit no.95-ferrous 1 tab PO DAILY 03/09/25 03/08/25 23:00 History fumarate 28 mg-folic acid 800 mcg tablet () Allergy/AdvReac Type Severity Reaction Status Date / Time amoxicillin Allergy Angioedema Verified 03/09/25 03:34 Penicillins (PCN) Allergy Angioedema Verified 03/09/25 03:34 Social History Smoking Status: Current every day smoker tobacco type: e-cigarettes alcohol intake: never NST FHR Rate Baby A Baseline: 125 Variability:: Moderate Accelerations:: 15 x 15 Decelerations:: None NST Reactive:: Yes Assessment & Plan (1) False labor: (2) 39 weeks gestation of : PLAN: Plan Labor precautions
== END 2025-03-09 06:03 | disposition home or self-care (01) ==
LOC: WPOUT 03:02 → WP 03:02
PROVIDERS: PCP Nurse Practitioner Family; Referring Provider Obstetrics & Gynecology; Visit Provider Obstetrics & Gynecology
DX: O47.1 False labor at or after 37 completed weeks of gestation (principal); F17.290 Nicotine dependence, other tobacco product, uncomplicated; O99.333 Smoking (tobacco) complicating pregnancy, third trimester; Z3A.39 39 weeks gestation of pregnancy
CPT/HCPCS: 59025; 59050; 81001; 87086; 87088; 99221; G0378

== ENCOUNTER 2025-03-18 07:38 | Inpatient (IN) | payer MEDICAID, SELFPAY ==
[2025-03-18] VITALS (18 sets, daily range): BP systolic 119–145; BP diastolic 55–83; PULSE 60–204; RESP 16–18; TEMP 36.6–36.9; O2SAT 80–98; BMI 36.1
--- OUTSIDE RECORDS SUMMARY | 2025-03-18 07:38 | XMS RPT_ITS | CCD ---
Author Organization [facility] Care Team Providers Care Restaurant Inspector Name Role Phone PROVIDER, UNKNOWN Admitting Unavailable BAUDILIO ARCHIBALD Attending Unavailable Queden MAMMOGRAPHY TECHNICIAN.Lulu SERVINny A Primary Care Provider Joselyn Lovelace MD Primary Care Provider [phone] Queden MAMMOGRAPHY TECHNICIAN.Elisabet SERVIN A Primary Care Provider Care Physician, No Primary Primary Care Provider Unavailable Care Physician, No Primary Referring Provider Un available MEGHAN Dover Attending Provider Joselyn Lovelace MD Primary Care Provider [phone] Queden MAMMOGRAPHY TECHNICIAN.Lulu SERVINny A Primary Care Provider Queden MAMMOGRAPHY TECHNICIAN - GARETH Elisabet Primary Care Provider MALIA VALLES Attending Unavailable [facility] Primary Care Unavailable [facility] Primary Care Unavailable KEYONA CONRAD Attending Unavailable QUEDEN, ELISABET Primary Care Unavailable Dr. Jacinto Abarca DO Emergency Provider [phone] Queden GREEN CHAIN OFFBEARER-C, Elisabet Primary Care Provider [phone] Carlos Bliss Attending Unavailable Queden GREEN CHAIN OFFBEARER, Elisabet Primary Care Unavailable Queden GREEN CHAIN OFFBEARER, Elisabet Primary Care Unavailable Jacinto Abarca Attending [...] QUEDEN, ELISABET A Primary Care Unavailable HAURY, FRDEA Referring Unavailable QUEDEN, ELISABET A Primary Care [...] Amoxicillin; Translations: [AMOXICILLIN] Drug Allergy 07-21-2014 Swelling [facility] (10 sources) Penicillins; Translations: [PENICILLINS] Drug Allergy 07-21-2014 Swelling [facility] (7 sources) Penicillins Drug Allergy 07-21-2014 Swelling [facility] (11 sources) Penicillins Drug Allergy 07-21-2014 Swelling [facility] (2 sources) Penicillins Allergy to substance 12-06-2022 Angioedema [facility] (20 sources) Penicillins Drug Allergy 07-21-2014 Swelling [facility] (1 source) Amoxicillin Drug Allergy 08-29-2024 [facility] Repository (1 source) Penicillins Drug allergy (disorder) 08-29-2024 [facility] Repository Medications Current Medications Medication Drug [...] Comment on above: Take 1 tablet by [facility] once daily for 4 days. brompheniramine maleate 0.4 mg/ml / dextromethorphan hydrobromide 2 mg/ml / pseudoephedrine hydrochloride 6 mg/ml oral solution (2 sources) alpha-Adrenergic Agonist, Uncompetitive M-rzatdj-B-aspartat e Receptor Antagonist, Sigma-1 Agonist Start: 12-06-2022 take 1 mL by mouth every four hours as needed Brompheniramine-P seudoeph-Dm 30-10 mg/5 mL syrup Active 10 mL PO Q4H as needed December 06, 2022 12:00am Start: 12-06-2022 take 1 mL by mouth every four hours Oamztswwzjacesq-Ydqddkwlz-Yc Active 10 M L PO Q4H December [...] Discontinued (Other) Start: 12-06-2022 Norgestimate-E thinyl Estradiol (Broward-Linyah) 0.25-35 mg-mcg tablet Active 1 {tbl} PO DAILY December 06, 2022 12:00am Start: 12-06-2022 take 1 tablet by dewey once daily Norgestimate-Ethinyl Estradiol (Broward-Linyah) 0.25-35 mg-mcg tablet Active 1 TABLET PO [...] in third trimester, single or unspecified fetus ([facility])] Onset: 01-24-2025 Episodic Other complications of (1 source) Supervision of high risk , unspecified, third trimester; Translations: [Supervision of high risk in third trimester ([facility])] Onset: 02-03-2025 Episodic Other complications of (1 source) Other specified related conditions, third trimester; Translations: [ headache in third trimester ([facility])] Onset: 01-10-2025 Episodic Other complications of (1 source) Decreased movements, second trimester, not applicable or unspecified; Translations: [Decreased movements in second trimester, single or unspecified fetus ([facility])] Onset: 12-04-2024 Episodic Other connective tissue disease [...] of ; Translations: [24 weeks gestation of ([facility])] Onset: 12-27-2024 Episodic Residual codes; unclassified (1 source) 28 weeks gestation of ; Translations: [28 weeks gestation of ([facility])] Onset: 12-27-2024 Episodic Residual codes; unclassified (1 source) 25 weeks gestation of ; Translations: [25 weeks gestation of ([facility])] Onset: 12-04-2024 Episodic Unclassified (1 source) Acute [...] Translations: [Abdominal pain during in first trimester ([facility])] Onset: 09-03-2024 Episodic Other complications of (1 source) Supervision of high risk , unspecified, second trimester; Translations: [Encounter for supervision of high risk in second trimester, antepartum ([facility])] Onset: 09-11-2024 Episodic Other complications of (1 source) Supervision of high risk , unspecified, first trimester; Translations: [Encounter for supervision of high risk in first trimester, antepartum ([facility])] Onset: 09-11-2024 Episodic Other complications of (1 source) Other specified related conditions, unspecified trimester; Translations: [Cramping affecting , antepartum ([facility])] Onset: 09-05-2024 Episodic Other female genital disorders [...] of ; Translations: [20 weeks gestation of ([facility])] Onset: 10-31-2024 Episodic Residual codes; unclassified (1 source) 16 weeks gestation of ; Translations: [16 weeks gestation of (HCC)] Onset: 10-03-2024 Episodic Residual codes; unclassified (1 source) 13 weeks gestation of ; Translations: [13 weeks gestation of (HCC)] Onset: 09-11-2024 Episodic Residual codes; unclassified (1 source) 12 weeks gestation of ; Translations: [12 weeks gestation of ([facility])] Onset: 09-05-2024 Episodic Residual codes; unclassified (1 [...] B STREPTOCOCCUS BY PCR Not detected Normal [facility] Comment on above: Performed By: #### G BPCR ####[facility] [id number] [place] [address] [place] CBC panel Auto (Bld)on 01-24 Erythrocyte distribution width (RBC) [Ratio] 12.5 % Normal 11.5-15.0 [facility] Comment on above: Order Comment: Mich martinez Type: BLOOD SPECIMEN Ordering Facility: [facility] Address: [address] [place] [address] Performed By: #### 5 8410-2 #### [facility] CLIA [id number] [address] [place] [address] [place] Hematocrit (Bld) [Volume fraction] 30.4 % Low 36.0-46.0 [facility] Comment on above: Order Comment: Mich martinez Type: BLOOD SPECIMEN Ordering Facility: [facility] Address: [address] [place] [address] Performed By: #### 5 8410-2 #### [facility] CLIA [id number] [address] [place] [address] [place] Hemoglobin (Bld) [Mass/Vol] 10.7 g/dL Low 11.5-15.5 [facility] Comment on above: Order Comment: Speci men Type: BLOOD SPECIMEN Ordering Facility: [facility] Address: [address] [place] [address] Performed By: #### 5 8410-2 #### [facility] CLIA [id number] [address] MCH (RBC) [Entitic mass] 33.6 pg Normal 26.0-34.0 [facility] Comment on above: Order Comment: Speci men Type: BLOOD SPECIMEN Ordering Facility: [facility] Address: [address] [place] [address] Performed By: #### 5 8410-2 #### [facility] CLIA [id number] [address] MCHC (RBC) [Mass/Vol] 35.2 g/dL Normal 30.5-36.0 [facility] Comment on above: Order Comment: Speci men Type: BLOOD SPECIMEN Ordering Facility: [facility] Address: [address] [place] [address] Performed By: #### 5 8410-2 #### [facility] CLIA [id number] [address] MCV (RBC) [Entitic vol] 95.6 fL Normal 80.0-100.0 [facility] Comment on above: Order Comment: Speci men Type: BLOOD SPECIMEN Ordering Facility: [facility] Address: [address] [place] [address] Performed By: #### 5 8410-2 #### [facility] CLIA [id number] [address] Nucleated RBC (Bld) [#/Vol] 10*3/uL Normal <0.01 [facility] Comment on above: Order Comment: Speci men Type: BLOOD SPECIMEN Ordering Facility: [facility] Address: [address] [place] [address] Performed By: #### 5 8410-2 #### [facility] CLIA [id number] [address] OF [place] Platelet mean volume (Bld) [Entitic vol] 10.7 fL Normal 9.0-12.7 [facility] Comment on above: Order Comment: Speci men Type: BLOOD SPECIMEN Ordering Facility: [facility] Address: [address] [place] [address] Performed By: #### 5 8410-2 #### [facility] CLIA [id number] [address] OF [place] Platelets (Bld) [#/Vol] 210 10*3/uL Normal 150-400 [facility] Comment on above: Order Comment: Speci men Type: BLOOD SPECIMEN Ordering Facility: [facility] Address: [address] [place] [address] Performed By: #### 5 8410-2 #### [facility] CLIA [id number] [address] RBC (Bld) [#/Vol] 3.18 10*6/uL Low 3.90-5.20 [facility] Comment on above: Order Comment: Speci men Type: BLOOD SPECIMEN Ordering Facility: [facility] Address: [address] [place] [address] Performed By: #### 5 8410-2 #### [facility] CLIA [id number] [address] OF [place] WBC (Bld) [#/Vol] 10.41 10*3/uL Normal 3.70-11.00 [facility] Comment on above: Order Comment: Speci men Type: BLOOD SPECIMEN Ordering Facility: [facility] Address: [address] [place] [address] Performed By: #### 5 8410-2 #### [facility] CLIA [id number] [address] OF [facility] Ricardo 01-24-2025 ARSH Telephone (OBGYWM) ---- GABE HUBBARD ([id number]) 1995 F ONOFRE Date Time Provider Department [...] and Pt is advised to go to [facility] OB ED. Pt voiced understanding. Breanna Gillette [...] anxiety [F41.8] 08/01/2024 Nausea and vomiting during ([facility]) [O21*08/01/2024 Fall [W19.XXXA] 08/01/2024 Penicillin allergy [Z88.0] 08/01/2024 Rh negative state in antepartum period ([facility]) [O*09/12/2024 Anemia complicating , third trimester *12/30/2024 Encounter Status:Closed by BREANNA GILLETTE on 01/24/25 Normal [facility] metabolic 2000 panelon 01-24-2025 Albumin [Mass/Vol] 3.4 g/dL Low 3.9-4.9 [facility] Comment on above: Order Comment: Speci men Type: URINE SPECIMEN Ordering Facility: [facility] Address: [address] [place] [address] Performed By: #### 2 4356-8 #### [facility] CLIA [id number] [address] [place] [address] [place] ALP [Catalytic activity/Vol] 107 U/L Normal 34-123 [facility] Comment on above: Order Comment: Speci men Type: URINE SPECIMEN Ordering Facility: [facility] Address: [address] [place] [address] Performed By: #### 2 4356-8 #### [facility] CLIA [id number] [address] [place] [address] [place] ALT With P-5'-P [Catalytic activity/Vol] 10 U/L Normal 7-38 [facility] Comment on above: Order Comment: Speci men Type: URINE SPECIMEN Ordering Facility: [facility] Address: [address] [place] [id number] Performed By: #### 2 4356-8 #### [facility] CLIA [id number] [address] [place] [address] [place] [facility] Anion gap [Moles/Vol] 9 mmol/L Normal 8-15 [facility] Comment on above: Order Comment: Speci men Type: URINE SPECIMEN Ordering Facility: [facility] Address: [address] [place], [place] [address] Performed By: #### 2 4356-8 #### [facility] CLIA [id number] [address] [place] [address] [place] AST With P-5'-P [Catalytic activity/Vol] 15 U/L Normal 13-35 [facility] Comment on above: Order Comment: Speci men Type: URINE SPECIMEN Ordering Facility: [facility] Address: [address] [place] [address] Performed By: #### 2 4356-8 #### [facility] CLIA [id number] [address] [place] [address] [place] Bilirubin [Mass/Vol] 0.4 mg/dL Normal 0.2-1.3 [facility] Comment on above: Order Comment: Speci men Type: URINE SPECIMEN Ordering Facility: [facility] Address: [address] [place] [address] Performed By: #### 2 4356-8 #### [facility] CLIA [id number] [address] [place] [address] [place] Calcium [Mass/Vol] 8.4 mg/dL Low 8.5-10.2 [facility] Comment on above: Order Comment: Speci men Type: URINE SPECIMEN Ordering Facility: [facility] Address: [address] [place] [address] Performed By: #### 2 4356-8 #### [facility] CLIA [id number] [address] [place] [address] [place] Chloride [Moles/Vol] 105 mmol/L Normal 98-107 [facility] Comment on above: Order Comment: Speci men Type: URINE SPECIMEN Ordering Facility: [facility] Address: [address] [place] [address] Performed By: #### 2 4356-8 #### [facility] CLIA [id number] [address] [place] [address] [place] CO2 [Moles/Vol] 23 mmol/L Normal 22-30 [facility] Comment on above: Order Comment: Speci men Type: URINE SPECIMEN Ordering Facility: [facility] Address: [address] [place] [address] Performed By: #### 2 4356-8 #### [facility] CLIA [id number] [address] [place] [address] [place] Creatinine [Mass/Vol] 0.55 mg/dL Low 0.58-0.96 [facility] Comment on above: Order Comment: Speci men Type: URINE SPECIMEN Ordering Facility: [facility] Address: [address] [place] [address] Performed By: #### 2 4356-8 #### [facility] CLIA [id number] [address] [place] [address] [place] eGFRcr SerPlBld CKD-EPI 2020 129 mL/min/1.73m??? Normal >=60 [facility] Comment on above: Order Comment: Speci men Type: URINE SPECIMEN Ordering Facility: [facility] Address: [address] [place] [address] Result Comment: Beth mated Glomerular Filtration Rate [...] Performed By: #### 2 4356-8 #### [facility] CLIA [id number] [address] [place] [address] [place] Glucose [Mass/Vol] 107 mg/dL High 74-99 [facility] Comment on above: Order Comment: Sharrondiandra martinez Type: URINE SPECIMEN Ordering Facility: [facility] Address: [address] [place] [address] Result Comment: The [place] Diabetes Association (ADA) provides guidance for cutoff [...] Standards of Medical Care in Diabetes 2016, [place] [employer]. Diabetes Care. 2016.39(Suppl 1). Performed By: #### 2 4356-8 #### [facility] CLIA [id number] [address] [place] [address] [place] Potassium [Moles/Vol] 3.6 mmol/L Low 3.7-5.1 [facility] Comment on above: Order Comment: Speci men Type: URINE SPECIMEN Ordering Facility: [facility] Address: [address] [place] [address] Performed By: #### 2 4356-8 #### [facility] CLIA [id number] [address] [place] [address] [place] Protein [Mass/Vol] 6.5 g/dL Normal 6.3-8.0 [facility] Comment on above: Order Comment: Speci men Type: URINE SPECIMEN Ordering Facility: [facility] Address: [address] [place] [address] Performed By: #### 2 4356-8 #### [facility] CLIA [id number] [address] [place] [address] [place] Sodium [Moles/Vol] 137 mmol/L Normal 136-144 [facility] Comment on above: Order Comment: Speci men Type: URINE SPECIMEN Ordering Facility: [facility] Address: [address] [place] [address] Performed By: #### 2 4356-8 #### [facility] CLIA [id number] [address] [place] [address] [place] Urea nitrogen [Mass/Vol] 9 mg/dL Normal 7-21 [facility] Comment on above: Order Comment: Speci men Type: URINE SPECIMEN Ordering Facility: [facility] Address: [address] [place], [place] [address] Performed By: #### 2 4356-8 #### [facility] CLIA [id number] [address] [place] [address] [facility] ED Triage Noteon 01-24-2025 ED Triage Note HNO ID: [id number] Author: ARISTEO CISNEROS APRN.CNP Service: Emergency Medicine [...] this encounter. SIGNATURE: Aristeo Luna APRN.GARETH Normal [facility] Prot/Creat Uron 01-24-2025 Protein/Creatinine (U) [Mass ratio] 0.12 mg/mg Normal <0.15 [facility] Comment on above: Order Comment: Speci men Type: BLOOD SPECIMEN Ordering Facility: [facility] Address: [address] [place], [place] [address] Result Comment: Adul t Proteinuria Categories: <0.15 mg/mg is considered normal to mildly increased 0.15 - 0.50 mg/mg is considered moderately increased >0.50 mg/mg is considered severely increased KDIGO. (2013). KDIGO 2012 Clinical Practice Guideline for the Evaluation and Management of Chronic Kidney Disease. Official Journal of the International Society of Nephrology, 3(1), 1-150. Performed By: #### 5 8410-2 #### [facility] CLIA [id number] [address] [place] [address] [place] Protein/Creatinine (U) [Mass ratio]on 01-24-2025 Creatinine (U) [Mass/Vol] 102.6 mg/dL Normal 42.2-237.9 [facility] Comment on above: Order Comment: Speci men Type: BLOOD SPECIMEN Ordering Facility: [facility] Address: [address] [place] [address] Performed By: #### 5 8410-2 #### [facility] CLIA [id number] [address] [place] [address] [place] Protein (U) [Mass/Vol] 12 mg/dL Normal 0-20 [facility] Comment on above: Order Comment: Speci men Type: BLOOD SPECIMEN Ordering Facility: [facility] Address: [address] [place] [address] Performed By: #### 5 8410-2 #### [facility] CLIA [id number] [address] [place] [id number] [place] CBC panel Auto (Bld)on 01-10 Erythrocyte distribution width (RBC) [Ratio] 12.9 % Normal 11.5-15.0 [facility] Comment on above: Order Comment: Speci men Type: BLOOD SPECIMENOrdering Facility: [facility] Address: [address] [place] [address] Performed By: #### 5 8410-2 ####[facility] [id number] [place] [address] [place] Hematocrit (Bld) [Volume fraction] 31.2 % Low 36.0-46.0 [facility] Comment on above: Order Comment: Speci men Type: BLOOD SPECIMENOrdering Facility: [facility] Address: [address] [place] [address] Performed By: #### 5 8410-2 ####[facility] [id number] [place] [address] [place] Hemoglobin (Bld) [Mass/Vol] 10.9 g/dL Low 11.5-15.5 [facility] Comment on above: Order Comment: Speci men Type: BLOOD SPECIMENOrdering Facility: [facility] Address: [address] [place] [address] Performed By: #### 5 8410-2 ####[facility] [id number] [place] [address] [place] MCH (RBC) [Entitic mass] 33.0 pg Normal 26.0-34.0 [facility] Comment on above: Order Comment: Speci men Type: BLOOD SPECIMENOrdering Facility: [facility] Address: [address] [place] [address] Performed By: #### 5 8410-2 ####[facility] [id number] [address] [place] MCHC (RBC) [Mass/Vol] 34.9 g/dL Normal 30.5-36.[address] [facility] Comment on above: Order Comment: Speci men Type: BLOOD SPECIMENOrdering Facility: [facility] Address: [address] [place] [address] Performed By: #### 5 8410-2 ####[facility] [id number] [place] [address] [place] MCV (RBC) [Entitic vol] 94.5 fL Normal 80.0-100.0 [facility] Comment on above: Order Comment: Speci men Type: BLOOD SPECIMENOrdering Facility: [facility] Address: [address] [place] [address] Performed By: #### 5 8410-2 ####[facility] [id number] [place] [address] [place] Nucleated RBC (Bld) [#/Vol] 10*3/uL Normal <0.01 [facility] Comment on above: Order Comment: Speci men Type: BLOOD SPECIMENOrdering Facility: [facility] Address: [address] [place] [address] Performed By: #### 5 8410-2 ####[facility]LEMANCLIA [id number] [place] [address] [place] Platelet mean volume (Bld) [Entitic vol] 10.4 fL Normal 9.0-12.7 [facility] Comment on above: Order Comment: Speci men Type: BLOOD SPECIMENOrdering Facility: [facility] Address: [address] [place] [address] Performed By: #### 5 8410-2 ####[facility] [id number] [place] [address] [place] Platelets (Bld) [#/Vol] 236 10*3/uL Normal 150-400 [facility] Comment on above: Order Comment: Speci men Type: BLOOD SPECIMENOrdering Facility: [facility] Address: [address] [place] [address] Performed By: #### 5 8410-2 ####[facility] [id number] [place] [address] [place] RBC (Bld) [#/Vol] 3.30 10*6/uL Low 3.90-5.20 [facility] Comment on above: Order Comment: Speci men Type: BLOOD SPECIMENOrdering Facility: [facility] Address: [address] [place] [address] Performed By: #### 5 8410-2 ####[facility] [id number] [place] [address] [place] WBC (Bld) [#/Vol] 11.09 10*3/uL High 3.70-11.00 [facility] Comment on above: Order Comment: Speci men Type: BLOOD SPECIMENOrdering Facility: [facility] Address: [address] [place] [address] Performed By: #### 5 8410-2 ####[facility] [id number] [place] [address] [place] CNCOon 01-10-2025 CNCO Letter Text Normal [facility] Creatinine and Glomerular fi ltration rate.predicted panel (S/P/Bld)on 01-10-2025 Creatinine [Mass/Vol] 0.62 mg/dL Normal 0.58-0.[address] [facility] Comment on above: Order Comment: Speci juan Type: BLOOD SPECIMEN Ordering Facility: [facility] Address: [address] [place] [address] Performed By: #### 5 195-3, 59971-8, 72695-6 #### [facility] CLIA [id number] [address] [place] [address] [place] eGFRcr SerPlBld CKD-EPI 2020 125 mL/min/1.73m??? Normal >=60 [facility] Comment on above: Order Comment: Mich martinez Type: BLOOD SPECIMEN Ordering Facility: [facility] Address: [address] [place] [address] Result Comment: Beth mated Glomerular Filtration Rate [...] actual GFR. Performed By: #### 5 195-3, 35295-7, 19632-6 #### [facility] CLIA [id number] [address] [place] [address] [place] Hepatic function 2000 panelo n 01-10-2025 Albumin [Mass/Vol] 3.4 g/dL Low 3.9-4.9 [facility] Comment on above: Order Comment: Speci men Type: BLOOD SPECIMEN Ordering Facility: [facility] Address: [address] [place] [address] Performed By: #### 5 195-3, 04154-0, 84495-3 #### [facility] CLIA [id number] [address] [place] [address] [place] ALP [Catalytic activity/Vol] 108 U/L Normal 34-123 [facility] Comment on above: Order Comment: Speci men Type: BLOOD SPECIMEN Ordering Facility: [facility] Address: [address] [place] [address] Performed By: #### 5 195-3, 15896-9, 97559-0 #### [facility] CLIA [id number] [address] [place] [address] [place] ALT [Catalytic activity/Vol] 12 U/L Normal 7-38 [facility] Comment on above: Order Comment: Speci men Type: BLOOD SPECIMEN Ordering Facility: [facility] Address: [address] [place] [address] Performed By: #### 5 195-3, 09232-9, 72605-7 #### [facility] CLIA [id number] [address] [place] [address] [place] AST [Catalytic activity/Vol] 15 U/L Normal 13-35 [facility] Comment on above: Order Comment: Speci men Type: BLOOD SPECIMEN Ordering Facility: [facility] Address: [address] [place] [address] Performed By: #### 5 195-3, 00444-7, 45248-1 #### [facility] CLIA [id number] [address] [place] [address] [place] Bilirubin [Mass/Vol] 0.5 mg/dL Normal 0.2-1.3 [facility] Comment on above: Order Comment: Speci men Type: BLOOD SPECIMEN Ordering Facility: [facility] Address: [address] [place] [address] Performed By: #### 5 195-3, 75988-6, 05202-8 #### [facility] CLIA [id number] [address] [place] [address] [place] Bilirubin.conjugated [Mass/Vol] 0.1 mg/dL Normal <0.3 [facility] Comment on above: Order Comment: Speci men Type: BLOOD SPECIMEN Ordering Facility: [facility] Address: [address] [place] [address] Performed By: #### 5 195-3, 40052-6, 93874-5 #### [facility] CLIA [id number] [address] [place] [address] [place] Protein [Mass/Vol] 6.6 g/dL Normal 6.3-8.0 [facility] Comment on above: Order Comment: Speci men Type: BLOOD SPECIMEN Ordering Facility: [facility] Address: [address] [place] [address] Performed By: #### 5 195-3, 11209-4, #### [facility] CLIA [id number] [address] [place] [address] [place] Prot/Creat Uron 01-10-2025 Protein/Creatinine (U) [Mass ratio] 0.15 mg/mg High <0.15 [facility] Comment on above: Order Comment: Speci men Type: BLOOD SPECIMEN Ordering Facility: [facility] Address: [address] [place] [address] Result Comment: Adul t Proteinuria Categories: <0.15 mg/mg is considered normal to mildly increased 0.15 - 0.50 mg/mg is considered moderately increased >0.50 mg/mg is considered severely increased KDIGO. (2013). KDIGO 2012 Clinical Practice Guideline for the Evaluation and Management of Chronic Kidney Disease. Official Journal of the International Society of Nephrology, 3(1), 1-150. Performed By: #### 5 195-3, 53576-5, 72472-1 #### [facility] CLIA [id number] [address] [place], [place] [address] [place] Protein/Creatinine (U) [Mass ratio]on 01-10-2025 Creatinine (U) [Mass/Vol] 33.1 mg/dL Normal 20.0-300.0 [facility] Comment on above: Order Comment: Speci men Type: BLOOD SPECIMEN Ordering Facility: [facility] Address: [address] [place] [address] Performed By: #### 5 195-3, 98949-3, 83664-7 #### [facility] CLIA [id number] [address] [place] [address] [place] Protein (U) [Mass/Vol] 5 mg/dL Normal 0-20 [facility] Comment on above: Order Comment: Speci men Type: BLOOD SPECIMEN Ordering Facility: [facility] Address: [address] [place] [address] Performed By: #### 5 195-3, 69279-4, 81015-9 #### [facility] CLIA [id number] [address] [place] [address] [place] Urate SerPl-mCncon Urate [Mass/Vol] 3.8 mg/dL Normal 2.5-6.6 [facility] Comment on above: Order Comment: Speci men Type: BLOOD SPECIMEN Ordering Facility: [facility] Address: [address] [place] [address] Performed By: #### 5 195-3, 48438-9, 02645-8 #### [facility] CLIA [id number] [address] [place], [place] [address] [place] Ricardo 01-07-2025 [facility] Telephone (OBGYWM) ---- GABE HUBBARD ([id number]) 1995 F [facility] Date Time Provider Department [...] Jessica, APRN.JENNY 01/07/2025 12:19 PM Signed Recommend resident care aide, massage, abdominal support belt, and ice as well. Thank you, Brooklyn Villalpando APRN.Rita Ness RN 01/07/2025 12:23 PM Signed Left message to check [employer] message and call with any questions. Rita [...] 08/01/2024 Rh negative state in antepartum period ([facility]) [O*09/12/2024 Anemia complicating , third trimester *12/30/2024 Encounter Status:Closed by RITA CHAIREZ on 01/07/25 [facility] GABE HUBBARD ([id number]) 1995 F [facility] Date Time Provider Department 01/02/25 [facility] During your visit today, we recorded the following information about you: Klarissa Beckett, KATIE 01/02/2025 8:13 AM Signed Received request from [facility] for breast pump, compression stockings, [...] 01/02/2025 Noted Resolved Use of nicotine during ([facility]) [O99.330]08/01/2024 Vaginal discharge [N89.8] 08/01/2024 Depression with anxiety [F41.8] 08/01/2024 Nausea and vomiting during ([facility]) [O21*08/01/2024 Fall [W19.XXXA] 08/01/2024 Penicillin allergy [Z88.0] 08/01/2024 Rh negative state in antepartum period ([facility]) [O*09/12/2024 Anemia complicating , third trimester *12/30/2024 Encounter Status:Closed by BREANNA GILLETTE on 01/02/25 Normal [facility] POCT SPOTFIRE R/ST Panel Min i w/COVID ([facility]) manually resultedOrdered By: Caren Haro on 01-01-2025 POC Human Rhinovirus PCR Negative Negative [facility] POC Influenza A Virus PCR Negative Negative [facility] POC Influenza B Virus PCR Negative Negative [facility] POC Respiratory Syncytial Virus PCR Negative Negative [facility] POC Sars-Cov-2 PCR Negative Negative [facility] CBC W Auto Differential pane l (Bld)on 12-27-2024 Basophils (Bld) [#/Vol] 10*3/uL Normal <0.11 [facility] Comment on above: Order Comment: Speci men Type: BLOOD SPECIMEN Ordering Facility: [facility] Address: [address] [place] [address] Performed By: #### 5 195-3, 35948-7, 45571-9 #### [facility] CLIA [id number] [address] [place] [address] [place] Basophils/100 WBC (Bld) 0.2 % Normal [facility] Comment on above: Order Comment: Speci men Type: BLOOD SPECIMEN Ordering Facility: [facility] Address: [address] [place] [address] Performed By: #### 5 195-3, 74446-8, 67315-4 #### [facility] CLIA [id number] [address] [place] [address] [place] Differential cell count method Nom (Bld) Auto Normal [facility] Comment on above: Order Comment: Speci men Type: BLOOD SPECIMEN Ordering Facility: [facility] Address: [address] [place] [address] Performed By: #### 5 195-3, 10528-2, 67592-1 #### [facility] CLIA [id number] [address] [place] [address] [place] Eosinophils (Bld) [#/Vol] 0.11 10*3/uL Normal <0.46 [facility] Comment on above: Order Comment: Speci men Type: BLOOD SPECIMEN Ordering Facility: [facility] Address: [address] [place] [address] Performed By: #### 5 195-3, 55671-8, 67001-1 #### [facility] CLIA [id number] [address] [place] [address] [place] Eosinophils/100 WBC (Bld) 1.1 % Normal [facility] Comment on above: Order Comment: Speci men Type: BLOOD SPECIMEN Ordering Facility: [facility] Address: [address] [place] [address] Performed By: #### 5 195-3, 42279-1, 93566-3 #### [facility] CLIA [id number] [address] [place] [address] [place] Erythrocyte distribution width (RBC) [Ratio] 12.9 % Normal 11.5-15.0 [facility] Comment on above: Order Comment: Speci men Type: BLOOD SPECIMEN Ordering Facility: [facility] Address: [address] [place] [address] Performed By: #### 5 195-3, 13381-2, 69966-7 #### [facility] CLIA [id number] [address] [place] [address] [place] Hematocrit (Bld) [Volume fraction] 30.7 % Low 36.0-46.0 [facility] Comment on above: Order Comment: Speci men Type: BLOOD SPECIMEN Ordering Facility: [facility] Address: [address] [place] [address] Performed By: #### 5 195-3, 43192-5, 21821-6 #### [facility] CLIA [id number] [address] [place] [address] [place] Hemoglobin (Bld) [Mass/Vol] 10.6 g/dL Low 11.5-15.5 [facility] Comment on above: Order Comment: Speci men Type: BLOOD SPECIMEN Ordering Facility: [facility] Address: [address] [place] [address] Performed By: #### 5 195-3, 43098-7, 78818-8 #### [facility] CLIA [id number] [address] [place] [address] [place] Immature granulocytes (Bld) [#/Vol] 0.08 10*3/uL Normal <0.10 [facility] Comment on above: Order Comment: Speci men Type: BLOOD SPECIMEN Ordering Facility: [facility] Address: [address] [place] [address] Performed By: #### 5 195-3, 29865-1, 56857-8 #### [facility] CLIA [id number] [address] [place] [address] [place] Immature granulocytes/100 WBC (Bld) 0.8 % Normal [facility] Comment on above: Order Comment: Speci men Type: BLOOD SPECIMEN Ordering Facility: [facility] Address: [address] [place] [address] Performed By: #### 5 195-3, 64229-0, 33232-4 #### [facility] CLIA [id number] [address] [place] [address] [place] Lymphocytes (Bld) [#/Vol] 2.27 10*3/uL Normal 1.00-4.00 [facility] Comment on above: Order Comment: Speci men Type: BLOOD SPECIMEN Ordering Facility: [facility] Address: [address] [place] [address] Performed By: #### 5 195-3, 24042-9, 61811-7 #### [facility] CLIA [id number] [address] [place] [address] [place] Lymphocytes/100 WBC (Bld) 22.1 % Normal [facility] Comment on above: Order Comment: Speci men Type: BLOOD SPECIMEN Ordering Facility: [facility] Address: [address] [place] [address] Performed By: #### 5 195-3, 99258-7, 36323-2 #### [facility] CLIA [id number] [address] [place] [address] [place] MCH (RBC) [Entitic mass] 32.9 pg Normal 26.0-34.0 [facility] Comment on above: Order Comment: Speci men Type: BLOOD SPECIMEN Ordering Facility: [facility] Address: [address] [place] [address] Performed By: #### 5 195-3, 43190-5, 64701-4 #### [facility] CLIA [id number] [address] [place] [address] [place] MCHC (RBC) [Mass/Vol] 34.5 g/dL Normal 30.5-36.[address] [facility] Comment on above: Order Comment: Speci men Type: BLOOD SPECIMEN Ordering Facility: [facility] Address: [address] [place] [address] Performed By: #### 5 195-3, 45777-9, 09052-7 #### [facility] CLIA [id number] [address] [place] [address] [place] MCV (RBC) [Entitic vol] 95.3 fL Normal 80.0-100.0 [facility] Comment on above: Order Comment: Speci men Type: BLOOD SPECIMEN Ordering Facility: [facility] Address: [address] [place] [address] Performed By: #### 5 195-3, 85421-7, 26609-3 #### [facility] CLIA [id number] [address] [place] [address] [place] Monocytes (Bld) [#/Vol] 0.67 10*3/uL Normal <0.87 [facility] Comment on above: Order Comment: Speci men Type: BLOOD SPECIMEN Ordering Facility: [facility] Address: [address] [place] [address] Performed By: #### 5 195-3, 54027-2, #### [facility] CLIA [id number] [address] [place] [address] [place] Monocytes/100 WBC (Bld) 6.5 % Normal C [facility] Comment on above: Order Comment: Speci men Type: BLOOD SPECIMEN Ordering Facility: [facility] Address: [address] [place] [address] Performed By: #### 5 195-3, 40474-9, 54359-4 #### [facility] CLIA [id number] [address] [place] [address] [place] Neutrophils (Bld) [#/Vol] 7.13 10*3/uL Normal 1.45-7.50 [facility] Comment on above: Order Comment: Speci men Type: BLOOD SPECIMEN Ordering Facility: [facility] Address: [address] [place] [address] Performed By: #### 5 195-3, 17936-4, 62863-4 #### [facility] CLIA [id number] [address] [place] [address] [place] Neutrophils/100 WBC (Bld) 69.3 % Normal [facility] Comment on above: Order Comment: Speci men Type: BLOOD SPECIMEN Ordering Facility: [facility] Address: [address] [place] [address] Performed By: #### 5 195-3, 05916-4, 50718-2 #### [facility] CLIA [id number] [address] [place] [address] [place] Nucleated RBC (Bld) [#/Vol] 10*3/uL Normal <0.01 [facility] Comment on above: Order Comment: Speci men Type: BLOOD SPECIMEN Ordering Facility: [facility] Address: [address] [place] [address] Performed By: #### 5 195-3, 40577-0, 02887-4 #### [facility] CLIA [id number] [address] [place] [address] [place] Nucleated RBC/100 WBC (Bld) [Ratio] 0.0 /100 WBC Normal [facility] Comment on above: Order Comment: Speci men Type: BLOOD SPECIMEN Ordering Facility: [facility] Address: [address] [place] [address] Performed By: #### 5 195-3, 95101-2, 26731-2 #### [facility] CLIA [id number] [address] [place] [address] [place] Platelet mean volume (Bld) [Entitic vol] 9.9 fL Normal 9.0-12.7 [facility] Comment on above: Order Comment: Speci men Type: BLOOD SPECIMEN Ordering Facility: [facility] Address: [address] [place] [address] Performed By: #### 5 195-3, 12988-4, 24956-7 #### [facility] CLIA [id number] [address] [place] [address] [place] Platelets (Bld) [#/Vol] 214 10*3/uL Normal 150-400 [facility] Comment on above: Order Comment: Speci men Type: BLOOD SPECIMEN Ordering Facility: [facility] Address: [address] [place] [address] Performed By: #### 5 195-3, 11414-4, 82873-6 #### [facility] CLIA [id number] [address] [place] [address] [place] RBC (Bld) [#/Vol] 3.22 10*6/uL Low 3.90-5.20 [facility] Comment on above: Order Comment: Speci men Type: BLOOD SPECIMEN Ordering Facility: [facility] Address: [address] [place] [address] Performed By: #### 5 195-3, 65557-4, 11590-9 #### [facility] CLIA [id number] [address] [place] [address] [place] WBC (Bld) [#/Vol] 10.28 10*3/uL Normal 3.70-11.00 [facility] Comment on above: Order Comment: Speci men Type: BLOOD SPECIMEN Ordering Facility: [facility] Address: [address] [place] [address] Performed By: #### 5 195-3, 89991-3, 92634-5 #### [facility] CLIA [id number] [address] [place], [place] [address] [place] Ferritin SerPl-mCncon 2024 Ferritin [Mass/Vol] 14.2 ng/mL Low 14.7-205.1 [facility] Comment on above: Order Comment: Mich martinez Type: BLOOD SPECIMEN Ordering Facility: [facility] Address: [address] [place] [address] Performed By: #### 5 195-3, 34426-7, 59854-5 #### [facility] CLIA [id number] [address] [place] [address] [place] GESTATIONAL GLUCOSE SCREEN, 1-HOUR, 50 GRAM, NON-FASTINGon 12-27-2024 Glucose [Mass/Vol] 132 mg/dL Normal 74-134 [facility] Comment on above: Order Comment: Mich martinez Type: BLOOD SPECIMENOrdering Facility: [facility] Address: [address] [place] [address] Result Comment: [facility] Congress of Obstetricians and Gynecologists (Chasidy/Joanne) guidelines state a gestational diabetes mellitus positive screen is made, in women not previously diagnosed with overt diabetes, when the 1 hr plasma glucose level is equal to or above 140 mg/dL. The [facility] [employer] and [facility] [place] recommends a 135 mg/dL cutoff. Performed By: #### G LTGST ####[facility] [id number] [place] [id number] [place] Iron and Iron binding capaci ty panelon 12-27-2024 Iron [Mass/Vol] 54 ug/dL Normal 41-186 [facility] Comment on above: Order Comment: Mich martinez Type: BLOOD SPECIMEN Ordering Facility: [facility] Address: [address] [place] [address] Performed By: #### 5 195-3, 65019-5, 12705-4 #### [facility] CLIA [id number] [address] [place], [place] [address] [place] Iron binding capacity [Mass/Vol] 466 ug/dL High 232-386 [facility] Comment on above: Order Comment: Speci men Type: BLOOD SPECIMEN Ordering Facility: [facility] Address: [address] [place] [address] Performed By: #### 5 195-3, 03003-5, 20316-3 #### [facility] CLIA [id number] [address] [place] [address] [place] Iron/TIBC [Molar ratio] 11.6 % Low 15.0-57.0 C [facility] Comment on above: Order Comment: Speci men Type: BLOOD SPECIMEN Ordering Facility: [facility] Address: [address] [place] [address] Performed By: #### 5 195-3, 27880-4, 30290-1 #### [facility] CLIA [id number] [address] [place] [address] [place] Reagin and Treponema pallidu m IgG and IgM [Interp]on 12-27-2024 T. pallidum IgG+IgM IA Ql (S) Non-Reactive Normal Nonreactive [facility] Comment on above: Order Comment: Speci men Type: BLOOD SPECIMENOrdering Facility: [facility] Address: [address] [place] [address] Performed By: #### 7 3752-8 ####[facility] [id number] [place] [address] [place] Reagin+T pallidum IgG+IgM Se rPl-Impon 12-27-2024 Reagin and Treponema pallidum IgG and IgM [Interp] Cannot exclude recent Treponemal infection if specimen collected within 7-10 days after appearance of suspect lesions or 2-3 weeks after an exposure. Clinical correlation is required. Normal [facility] Comment on above: Order Comment: Speci men Type: BLOOD SPECIMENOrdering Facility: [facility] Address: [address] [place] [address] Performed By: #### 7 3752-8 ####[facility] [id number] [place] [address] [place] TYPE + SCREEN PRENATALon ABO O Normal [facility] Comment on above: Order Comment: Speci men Type: BLOOD SPECIMEN Ordering Facility: [facility] Address: [address] [place] [address] Performed By: #### 5 195-3, 66245-8, 27846-6 #### [facility] CLIA [id number] [address] [place] [address] [place] Rh Nom (Bld) Negative Normal [facility] Comment on above: Order Comment: Speci men Type: BLOOD SPECIMEN Ordering Facility: [facility] Address: [address] [place] [address] Performed By: #### 5 195-3, 46492-7, 31862-1 #### [facility] CLIA [id number] [address] [place] [address] [place] TYPE AND SCREEN EXPIRATION 12/30/2024 23:59 Normal [facility] Comment on above: Order Comment: Speci men Type: BLOOD SPECIMEN Ordering Facility: [facility] Address: [address] [place] [address] Performed By: #### 5 195-3, 32020-2, 11361-7 #### [facility] CLIA [id number] [address] [place] [address] [place] CNCOon 12-04-2024 CNCO Letter Text Normal [facility] BACTERIAL VAGINOSIS NAATon 0 11-28-2024 Lactobacillus crispatus+gasseri+jense tanvir + Gardnerella vaginalis + Atopobium vaginae rRNA JOSEFA+probe Ql (Vag fld) Not detected Normal Not detected [facility] Comment on above: Order Comment: Speci men Type: SWABOrdering Facility: [facility] Address: [address] [place] [address] Performed By: #### B VAMP, CVTV ####[facility] [id number] [place] [address] [place] YOUSUF/TRICHOMONAS NAATon 0 11-28-2024 C. glabrata RNA JOSEFA+probe Ql (Vag fld) Not detected Normal Not detected [facility] Comment on above: Order Comment: Speci men Type: SWABOrdering Facility: [facility] Address: [address] [place] [address] Performed By: #### B VAMP, CVTV ####[facility] [id number] [place] [address] [place] Yousuf sp DNA JOSEFA+probe Ql (Vag fld) Not detected Normal Not detected [facility] Comment on above: Order Comment: Speci men Type: SWABOrdering Facility: [facility] Address: [address] [place] [address] Result Comment: The Yousuf species group target includes C. albicans, C. tropicalis, C. parapsilosis, and C. dubliniensis. Performed By: #### B VAMP, CVTV ####[facility] LABCLIA [id number] [place] [address] [place] T. vaginalis DNA JOSEFA+probe Ql (Unsp spec) Not detected Normal Not detected [facility] Comment on above: Order Comment: Speci men Type: SWABOrdering Facility: [facility] Address: [address] [place] [address] Performed By: #### B VAMP, CVTV ####[facility] LABCLIA [id number] [place] [address] [place] UA DIP, URINE (POC)on 2024 BILIRUBIN UA (POCT) Negative Negative [facility] CLARITY UA (POCT) Clear [facility] COLOR UA (POCT) Yellow [facility] GLUCOSE UA (POCT) Negative Negative mg/dL [facility] Hemoglobin Ql (U) Negative Negative [facility] KETONE UA (POCT) Negative Negative mg/dL [facility] LEUKOCYTES UA (POCT) Negative Negative [facility] NITRITE UA (POCT) Negative Negative [facility] PH UA (POCT) 6.0 4.5 - 8.0 [facility] Protein Ql (U) Negative Negative mg/dL [facility] SPECIFIC GRAVITY UA (POCT) 1.010 1.005 - 1.030 [facility] UROBILINOGEN UA (POCT) 0.2 Normal E.U./d L [facility] Location:[facility], [address] [facility], [place], [place], [id number] [place] [address] POINT OF CARE [facility] Examination level ultrasound on 10-31-2024 Indication [...] 14 oz EFW by: Hadlock (HC-AC-FL) Extended Licensed Mortgage Loan Officer 5.9 mm CM 4.6 mm 31% Nicolaides [...] normal LVOT view: normal 3-vessel view: normal 0-fnaxwo-bszgkad view: normal Heart / Thorax Situs: situs [...] Read By: Juanis Oviedo M.D. MATERNAL MEDICINE [facility] Radiology Study observation (narrative) [facility] 10-03-2024 [facility] Telephone (OBGYWM) ---- GABE VIERA ([id number]) 1995 [facility] Date Time Provider Department 10/03/24 OCTAVIA HERZOG OBGYWMorenita During your visit today, we recorded the following information about you: Breanna Gillette RN 10/03/2024 1:25 PM Signed SW asked that Pt's FMLA, work restrictions letter, AND list of patient appointments be printed out for patient. Pt will call back and picker tender. All are printed out with patient label and at nurses desk. KATIE Alamo Trisha, RN 10/15/2024 9:21 AM Signed Patient called in and will pick paperwork up. All to front end developer front end developer binder. Rita Chairez RN Allergies As of [...] 08/01/2024 Rh negative state in antepartum period ([facility]) [O*09/12/2024 Encounter Status:Closed by RITA CHAIREZ on 10/15/24 Normal [facility] CBC W Auto Differential pane l (Bld)on 09-11-2024 Basophils (Bld) [#/Vol] 0.03 10*3/uL Normal <0.11 [facility] Comment on above: Order Comment: Speci men Type: BLOOD SPECIMEN Ordering Facility: [facility] Address: [address] [place] [address] Performed By: #### 5 195-3, 42236-8, 93941-6 #### [facility] CLIA [id number] [address] [place] [address] [place] Basophils/100 WBC (Bld) 0.4 % Normal C [facility] Comment on above: Order Comment: Speci men Type: BLOOD SPECIMEN Ordering Facility: [facility] Address: [address] [place] [address] Performed By: #### 5 195-3, 20347-1, 23479-4 #### [facility] CLIA [id number] [address] [place] [address] [place] Differential cell count method Nom (Bld) Auto Normal [facility] Comment on above: Order Comment: Speci men Type: BLOOD SPECIMEN Ordering Facility: [facility] Address: [address] [place] [address] Performed By: #### 5 195-3, 29113-2, 57932-7 #### [facility] CLIA [id number] [address] [place] [address] [place] Eosinophils (Bld) [#/Vol] 0.07 10*3/uL Normal <0.46 [facility] Comment on above: Order Comment: Speci men Type: BLOOD SPECIMEN Ordering Facility: [facility] Address: [address] [place] [address] Performed By: #### 5 195-3, 63391-1, 71863-5 #### [facility] CLIA [id number] [address] [place] [address] [place] Eosinophils/100 WBC (Bld) 0.8 % Normal [facility] Comment on above: Order Comment: Speci men Type: BLOOD SPECIMEN Ordering Facility: [facility] Address: [address] [place] [address] Performed By: #### 5 195-3, 74357-6, 40710-2 #### [facility] CLIA [id number] [address] [place] [address] [place] Erythrocyte distribution width (RBC) [Ratio] 12.7 % Normal 11.5-15.0 [facility] Comment on above: Order Comment: Speci men Type: BLOOD SPECIMEN Ordering Facility: [facility] Address: [address] [place] [address] Performed By: #### 5 195-3, 39445-2, 22282-1 #### [facility] CLIA [id number] [address] [place] [address] [place] Hematocrit (Bld) [Volume fraction] 37.6 % Normal 36.0-46.0 [facility] Comment on above: Order Comment: Speci men Type: BLOOD SPECIMEN Ordering Facility: [facility] Address: [address] [place] [address] Performed By: #### 5 195-3, 04225-6, 29903-1 #### [facility] CLIA [id number] [address] [place] [address] [place] Hemoglobin (Bld) [Mass/Vol] 12.5 g/dL Normal 11.5-15.5 [facility] Comment on above: Order Comment: Speci men Type: BLOOD SPECIMEN Ordering Facility: [facility] Address: [address] [place] [address] Performed By: #### 5 195-3, 40212-5, 22489-7 #### [facility] CLIA [id number] [address] [place] [address] [place] Immature granulocytes (Bld) [#/Vol] 0.03 10*3/uL Normal <0.10 [facility] Comment on above: Order Comment: Speci men Type: BLOOD SPECIMEN Ordering Facility: [facility] Address: [address] [place] [address] Performed By: #### 5 195-3, 61664-3, 75898-0 #### [facility] CLIA [id number] [address] [place] [address] [place] Immature granulocytes/100 WBC (Bld) 0.4 % Normal [facility] Comment on above: Order Comment: Speci men Type: BLOOD SPECIMEN Ordering Facility: [facility] Address: [address] [place] [address] Performed By: #### 5 195-3, 15403-5, 02198-1 #### [facility] CLIA [id number] [address] [place] [address] [place] Lymphocytes (Bld) [#/Vol] 2.41 10*3/uL Normal 1.00-4.00 [facility] Comment on above: Order Comment: Speci men Type: BLOOD SPECIMEN Ordering Facility: [facility] Address: [address] [place] [address] Performed By: #### 5 195-3, 57580-3, 90891-8 #### [facility] CLIA [id number] [address] [place] [address] [place] Lymphocytes/100 WBC (Bld) 28.5 % Normal [facility] Comment on above: Order Comment: Speci men Type: BLOOD SPECIMEN Ordering Facility: [facility] Address: [address] [place] [address] Performed By: #### 5 195-3, 64811-0, 72927-5 #### [facility] CLIA [id number] [address] [place] [address] [place] MCH (RBC) [Entitic mass] 30.9 pg Normal 26.0-34.0 [facility] Comment on above: Order Comment: Speci men Type: BLOOD SPECIMEN Ordering Facility: [facility] Address: [address] [place] [address] Performed By: #### 5 195-3, 02785-6, 17412-0 #### [facility] CLIA [id number] [address] [place] [address] [place] MCHC (RBC) [Mass/Vol] 33.2 g/dL Normal 30.5-36.[address] [facility] Comment on above: Order Comment: Speci men Type: BLOOD SPECIMEN Ordering Facility: [facility] Address: [address] [place] [address] Performed By: #### 5 195-3, 61534-7, 45994-8 #### [facility] CLIA [id number] [address] [place] [address] [place] MCV (RBC) [Entitic vol] 92.8 fL Normal 80.0-100.0 C [facility] Comment on above: Order Comment: Speci men Type: BLOOD SPECIMEN Ordering Facility: [facility] Address: [address] [place] [address] Performed By: #### 5 195-3, 53875-4, 05133-1 #### [facility] CLIA [id number] [address] [place] [address] [place] Monocytes (Bld) [#/Vol] 0.44 10*3/uL Normal <0.87 [facility] Comment on above: Order Comment: Speci men Type: BLOOD SPECIMEN Ordering Facility: [facility] Address: [address] [place] [address] Performed By: #### 5 195-3, 81251-7, 22230-4 #### [facility] CLIA [id number] [address] [place] [address] [place] Monocytes/100 WBC (Bld) 5.2 % Normal C [facility] Comment on above: Order Comment: Speci men Type: BLOOD SPECIMEN Ordering Facility: [facility] Address: [address] [place] [address] Performed By: #### 5 195-3, 52622-1, 16289-5 #### [facility] CLIA [id number] [address] [place] [address] [place] Neutrophils (Bld) [#/Vol] 5.48 10*3/uL Normal 1.45-7.50 [facility] Comment on above: Order Comment: Speci men Type: BLOOD SPECIMEN Ordering Facility: [facility] Address: [address] [place] [address] Performed By: #### 5 195-3, 17819-8, 34734-4 #### [facility] CLIA [id number] [address] [place] [address] [place] Neutrophils/100 WBC (Bld) 64.7 % Normal [facility] Comment on above: Order Comment: Speci men Type: BLOOD SPECIMEN Ordering Facility: [facility] Address: [address] [place] [address] Performed By: #### 5 195-3, 50634-7, 35777-9 #### [facility] CLIA [id number] [address] [place] [address] [place] Nucleated RBC (Bld) [#/Vol] 10*3/uL Normal <0.01 [facility] Comment on above: Order Comment: Speci men Type: BLOOD SPECIMEN Ordering Facility: [facility] Address: [address] [place] [address] Performed By: #### 5 195-3, 08802-7, 68207-4 #### [facility] CLIA [id number] [address] [place] [address] [place] Nucleated RBC/100 WBC (Bld) [Ratio] 0.0 /100 WBC Normal [facility] Comment on above: Order Comment: Speci men Type: BLOOD SPECIMEN Ordering Facility: [facility] Address: [address] [place] [address] Performed By: #### 5 195-3, 88401-2, 77517-0 #### [facility] CLIA [id number] [address] [place] [address] [place] Platelet mean volume (Bld) [Entitic vol] 9.6 fL Normal 9.0-12.7 [facility] Comment on above: Order Comment: Speci men Type: BLOOD SPECIMEN Ordering Facility: [facility] Address: [address] [place] [address] Performed By: #### 5 195-3, 37019-8, 18983-2 #### [facility] CLIA [id number] [address] [place] [address] [place] Platelets (Bld) [#/Vol] 237 10*3/uL Normal 150-400 [facility] Comment on above: Order Comment: Speci men Type: BLOOD SPECIMEN Ordering Facility: [facility] Address: [address] [place] [address] Performed By: #### 5 195-3, 02157-2, 83704-7 #### [facility] CLIA [id number] [address] [place] [address] [place] RBC (Bld) [#/Vol] 4.05 10*6/uL Normal 3.90-5.20 [facility] Comment on above: Order Comment: Speci men Type: BLOOD SPECIMEN Ordering Facility: [facility] Address: [address] [place] [address] Performed By: #### 5 195-3, 48177-0, 42770-2 #### [facility] CLIA [id number] [address] [place] [address] [place] WBC (Bld) [#/Vol] 8.46 10*3/uL Normal 3.70-11.00 [facility] Comment on above: Order Comment: Speci men Type: BLOOD SPECIMEN Ordering Facility: [facility] Address: [address] [place] [address] Performed By: #### 5 195-3, 64161-6, 69772-2 #### [facility] CLIA [id number] [address] [place] [address] [place] Examination level ultrasound on 09-11-2024 Indication First trimester anatomic survey Impression The patient is referred for a first trimester anatomy scan including nuchal translucency measurement as clinically indicated. - Single, live, intrauterine . - [place] rump length measurement is consistent with the [...] view: suboptimal 4-chamber view with color: suboptimal 3-ccjrcz-sqkcpbb view: visualized Abdominal cord insertion: normal Stomach: [...] Read By: Savannah Benitez M.D. MATERNAL MEDICINE [facility] Radiology Study observation (narrative) [facility] HBV surface Ag Ser Qlon 06-0 HBV surface Ag Ql (S) Negative Normal Negative [facility] Comment on above: Order Comment: Speci men Type: BLOOD SPECIMEN Ordering Facility: [facility] Address: [address] [place] [address] Performed By: #### 5 195-3, 79699-3, 85542-1 #### [facility] CLIA [id number] [address] [place] [address] [place] HCV Ab Ser Qlon 09-11-2024 HCV Ab Ql (S) Negative Normal Negative [facility] Comment on above: Order Comment: Speci men Type: BLOOD SPECIMEN Ordering Facility: [facility] Address: [address] [place] [address] Result Comment: The result suggests no evidence of infection with Hepatitis C virus. Should recent infection be suspected, repeat testing may be considered 4-6 weeks after this draw. Performed By: #### 1 6128-1 #### [facility] CLIA [id number] [address] [place] [address] [place] HIV 1+2 Ab IA Qlon HIV 1 and 2 Ab IA.rapid Nom (S/P/Bld) Normal [facility] Comment on above: Order Comment: Speci men Type: BLOOD SPECIMEN Ordering Facility: [facility] Address: [address] [place] [address] Result Comment: Test not indicated. Performed By: #### 5 195-3, 79160-1, 85984-4 #### [facility] CLIA [id number] [address] [place] [address] [place] HIV 1+2 Ab+HIV1 p24 Ag IA Ql Non-Reactive Normal Nonreactive [facility] Comment on above: Order Comment: Speci men Type: BLOOD SPECIMEN Ordering Facility: [facility] Address: [address] [place] [address] Performed By: #### 5 195-3, 47515-0, 06807-0 #### [facility] CLIA [id number] [address] [place] [address] [place] HIV immunoassay testing algorithm interpretation (S/P/Bld) [Interp] Normal [facility] Comment on above: Order Comment: Mich martinez Type: BLOOD SPECIMEN Ordering Facility: [facility] Address: [address] [place] [address] Result Comment: No e vidence of HIV-1 or HIV-2 infection. Should recent infection be suspected, repeat testing may be considered 2-3 weeks after this draw. [place] Rev. Code 3701.243(E): This information has been [...] or diagnoses. Performed By: #### 5 195-3, 97048-2, 06363-9 #### [facility] CLIA [id number] [address] [place] [address] [place] HbA1c (Bld)on 09-11-2024 Average glucose Estimated from glycated hemoglobin (Bld) [Mass/Vol] 111 mg/dL Normal [facility] Comment on above: Order Comment: Mich juan Type: BLOOD SPECIMENOrdering Facility: [facility] Address: [address] [place] [address] Result Comment: eAG: (Estimated average glucose) is a calculated value from HgbA1c and is patient care representative of the average blood glucose level in the last 2-3 month period. Performed By: #### 5 5454-3 ####[facility] [id number] [place] [address] [place] HbA1c (Bld) [Mass fraction] 5.5 % Normal 4.3-5.6 [facility] Comment on above: Order Comment: Mich martinez Type: BLOOD SPECIMENOrdering Facility: [facility] Address: [address] [place] [address] Result Comment: Amer [place] Diabetes Association guidelines indicate that patients with HgbA1c in the range 5.7-6.4% are at increased risk for development of diabetes, and intervention by lifestyle modification may be beneficial. HgbA1c greater or equal to 6.5% is considered diagnostic of diabetes. Performed By: #### 5 5454-3 ####[facility] [id number] [place] [address] [place] [id number] PLUSon 09-11-2024 Cell-free DNA./Cell-free DNA.total Dosage of chromosome-specific cfDNA (cfDNA) [Molar fraction] 23% Normal [facility] Comment on above: Order Comment: Speci men Type: BLOOD SPECIMENOrdering Facility: [facility] Address: [address] [place] [address] Performed By: #### M AT21 ####[facility] LAB[facility] [id number] [place] [address] Chr 13+18+21+X+Y aneuploidy Dosage of chromosome-specific cfDNA Ql (cfDNA) Negative Normal [facility] Comment on above: Order Comment: Speci men Type: BLOOD SPECIMENOrdering Facility: [facility] Address: [address] [place] [address] Performed By: #### M AT21 ####[facility] LABCLIA [id number] [place] [address] Chr 21 trisomy Dosage of chromosome-specific cfDNA Ql (cfDNA) Negative Normal [facility] Comment on above: Order Comment: Speci men Type: BLOOD SPECIMENOrdering Facility: [facility] Address: [address] [place] [address] Performed By: #### M AT21 ####[facility] LABCLIA [id number] [place] [address] Chr X and Y aneuploidy risk Sequencing Ql (cfDNA) [Interp] Not detected Normal [facility] Comment on above: Order Comment: Speci men Type: BLOOD SPECIMENOrdering Facility: [facility] Address: [address] [place] [address] Result Comment: Not Detected Not Detected Performed By: #### M AT21 ####[facility] LABCLIA [id number] [place] [id number] Citation Jame (Reference lab test) Comment Normal [facility] Comment on above: Order Comment: Speci men Type: BLOOD SPECIMENOrdering Facility: [facility] Address: [address] [place] [address] Result Comment: 1. P caitlin ROBBINS, et al. Kavitha Med. 2012;14(3):296-305. 2. Nicolas DURAN, et al. Prenat Diag. 2013;33(6):591-597. 3. Markel C, et al. Clin Chem. 2015 Apr;61(4):608-616. 4. Yogesh ROBBINS, et al. Kavitha Med. 2011;13(11):913-920. 5. ACOG/SMFM Practice Bulletin No. 226, Jan 2020. Performed By: #### M AT21 ####[facility] LABCLIA [id number] [place] [id number] Gestational age Estimated from conception date Alfaro Normal [facility] Comment on above: Order Comment: Speci men Type: BLOOD SPECIMENOrdering Facility: [facility] Address: [address] [place] [address] Performed By: #### M AT21 ####[facility] LABCLIA [id number] [place] [id number] GESTATIONALAGE AGE > OR = 9W Yes Normal [facility] Comment on above: Order Comment: Speci men Type: BLOOD SPECIMENOrdering Facility: [facility] Address: [address] [place] [address] Performed By: #### M AT21 ####[facility] LABCLIA [id number] [place] [address] Laboratory comment Jame (Report) Comment Normal [facility] Comment on above: Order Comment: Speci men Type: BLOOD SPECIMENOrdering Facility: [facility] Address: [address] [place] [address] Result Comment: The MaterniT(R) 21 PLUS laboratory-developed test (LDT) analyzes circulating cell-free DNA from a maternal blood sample. This test is used for screening purposes and not diagnostic. Clinical correlation is recommended. Validation data on twin pregnancies is limited and the ability of this test to detect aneuploidy in higher multiple gestations has not yet been validated. Performed By: #### M AT21 ####[facility] LABCLIA [id number] [place] [address] embalmer/funeral director name Nom (Provider) Comment Normal [facility] Comment on above: Order Comment: Speci men Type: BLOOD SPECIMENOrdering Facility: [facility] Address: [address] [place] [address] Result Comment: This specimen showed an expected representation of chromosome 21, 18 and 13 material. Clinical correlation is suggested. Comment Kenan Garcia MD, PhD, Director, [facility] Performed By: #### M AT21 ####[facility] LABCLIA [id number] [place] [address] LIMITATIONS OF THE TEST Comment Normal [facility] Comment on above: Order Comment: Speci men Type: BLOOD SPECIMENOrdering Facility: [facility] Address: [address] [place] [address] Result Comment: Whil e the results of [...] and Fragmin(R)). Performed By: #### M AT21 ####[facility] LABCLIA [id number] [place] [address] Monosomy X risk Dosage of chromosome-specific cfDNA Ql (Plasma cell-free+WBC DNA) [Interp] Not detected Normal [facility] Comment on above: Order Comment: Speci men Type: BLOOD SPECIMENOrdering Facility: [facility] Address: [address] [place] [address] Performed By: #### M AT21 ####[facility] LABCLIA [id number] [place] [address] NEGATIVE PREDICTIVE VALUE Note Normal [facility] Comment on above: Order Comment: Speci men Type: BLOOD SPECIMENOrdering Facility: [facility] Address: [address] [place] [address] Result Comment: The Negative Predictive Value (NPV) for trisomy 21, 18, and 13 is greater than 99%. The NPV for SCA and ESS cannot be calculated as SCA and ESS are only reported when an abnormality is detected. Performed By: #### M AT21 ####[facility] LABCLIA [id number] [place] [address] PERFORMANCE CHARACTERISTICS Note Normal [facility] Comment on above: Order Comment: Mich martinez Type: BLOOD SPECIMENOrdering Facility: [facility] Address: [address], [place] [address] Result Comment: ! Sex ! Accuracy: 99.4% [...] gestation only. Performed By: #### M AT21 ####[facility] LABCLIA [id number] [place] [address] POSITIVE PREDICTIVE VALUE N/A Normal [facility] Comment on above: Order Comment: Mich martinez Type: BLOOD SPECIMENOrdering Facility: [facility] Address: [address] [place] [address] Performed By: #### M AT21 ####[facility] LABCLIA [id number] [place] [address] Reference Lab Test Method Comment Normal [facility] Comment on above: Order Comment: Mich martinez Type: BLOOD SPECIMENOrdering Facility: [facility] Address: [address] [place] [address] Result Comment: See Notes Circulating cell-free DNA [...] and 22. Performed By: #### M AT21 ####[facility] LABCLIA [id number] [place] [address] Service comment (Unsp spec) [Interp] Comment Normal [facility] Comment on above: Order Comment: Speci men Type: BLOOD SPECIMENOrdering Facility: [facility] Address: [address] [place] [address] Result Comment: See Notes [facility]. is a subsidiary of [employer]), using the brand [employer]. This test was developed and its performance characteristics determined by [employer]. It has not been cleared or approved by the Food and Drug Administration. This laboratory is certified under the Clinical Laboratory Improvement Amendments (CLIA) as qualified to perform high complexity clinical laboratory testing and accredited by the [employer] ([employer]). If there is future clinical need for adding MaterniT GENOME testing, this specimen will be available until term. [facility] samples will not be retained beyond 60 days. [facility] patients will have to send a new sample for re-sequencing ([facility] Test Code: 239285). Performed By: #### M AT21 ####[facility] LABCLIA [id number] [place] [address] Sex Dosage of chromosome-specific cfDNA Nom (cfDNA) Comment Normal [facility] Comment on above: Order Comment: Speci men Type: BLOOD SPECIMENOrdering Facility: [facility] Address: [address] [place] [address] Result Comment: Cons istent with Female Performed By: #### M AT21 ####[facility] LABCLIA [id number] [place] [address] Test performance information Jame (Unsp spec) Comment Normal [facility] Comment on above: Order Comment: Speci men Type: BLOOD SPECIMENOrdering Facility: [facility] Address: [address] [place] [address] Result Comment: The performance characteristics of the MaterniT(R) 21 PLUS laboratory-developed test (LDT) have been determined in a clinical validation study with women at increased risk for chromosomal aneuploidy.[1-4] Performed By: #### M AT21 ####[facility] LABCLIA [id number] [place] [address] Trisomy 13 risk Dosage of chromosome-specific cfDNA Ql (cfDNA) [Interp] Negative Normal [facility] Comment on above: Order Comment: Speci men Type: BLOOD SPECIMENOrdering Facility: [facility] Address: [address] [place] [address] Performed By: #### M AT21 ####[facility] LABCLIA [id number] [place] [address] Trisomy 18 risk Dosage of chromosome-specific cfDNA Ql (Plasma cell-free+WBC DNA) [Interp] Negative Normal [facility] Comment on above: Order Comment: Speci juan Type: BLOOD SPECIMENOrdering Facility: [facility] Address: [address] [place] [address] Performed By: #### M AT21 ####[facility] LABCLIA [id number] [place] [address] RUBELLA IGG ANTIBODYon 09-11 RUBELLA IGG AB, QUAL Positive Normal Positive [facility] Comment on above: Order Comment: Sharroni juan Type: BLOOD SPECIMENOrdering Facility: [facility] Address: [address] [place] [address] Result Comment: The result suggests recent or past exposure to Rubella virus or history of Rubella vaccination. Positive result may also be seen due to presence of passively-transferred antibodies. Please correlate with patient's history. Performed By: #### R UBIGG ####[facility] LABCLIA [id number] [place] [address] [place] Reagin and Treponema pallidu m IgG and IgM [Interp]on 09-11-2024 T. pallidum IgG+IgM IA Ql (S) Non-Reactive Normal Nonreactive [facility] Comment on above: Order Comment: Speci men Type: BLOOD SPECIMEN [facility] Address: [address] [place] [address] Performed By: #### 5 195-3, 06927-7, 96829-1 #### [facility] CLIA [id number] [address] [place] [address] [place] Reagin+T pallidum IgG+IgM Se rPl-Impon 09-11-2024 Reagin and Treponema pallidum IgG and IgM [Interp] Cannot exclude recent Treponemal infection if specimen collected within 7-10 days after appearance of suspect lesions or 2-3 weeks after an exposure. Clinical correlation is required. Normal [facility] Comment on above: Order Comment: Speci men Type: BLOOD SPECIMEN [facility] Address: [address] [place] [address] Performed By: #### 5 195-3, 22744-1, 41024-5 #### [facility] CLIA [id number] [address] [place] [address] [place] TYPE + SCREEN PRENATALon ABO O Normal [facility] Comment on above: Order Comment: Speci men Type: BLOOD SPECIMEN [facility] Address: [address] [place] [address] Performed By: #### 5 195-3, 93393-6, 59714-1 #### [facility] CLIA [id number] [address] [place] [address] [place] Rh Nom (Bld) Negative Normal [facility] Comment on above: Order Comment: Speci men Type: BLOOD SPECIMEN [facility] Address: [address] [place] [address] Performed By: #### 5 195-3, 19566-6, 48312-8 #### [facility] CLIA [id number] [address] [place] [address] [place] TYPE AND SCREEN EXPIRATION 09/14/2024 23:59 Normal [facility] Comment on above: Order Comment: Speci men Type: BLOOD SPECIMEN [facility] Address: [address] [place] [address] Performed By: #### 5 195-3, 89216-9, 59827-6 #### [facility] CLIA [id number] [address] [place] [address] [place] Bacteria Ur Culton 5 Bacteria identified Cx Nom (U) ORGANISM ID: 1 10,000 -<50,000 CFU/ml Normal urogenital david Normal [facility] Comment on above: Performed By: #### 6 30-4 ####[facility] LABCLIA [id number] [place] [address] [place] UA DIP, URINE (POC)on 2024 BILIRUBIN UA (POCT) Negative Negative [facility] CLARITY UA (POCT) Clear [facility] COLOR UA (POCT) Light yellow [facility] GLUCOSE UA (POCT) Negative Negative mg/dL [facility] Hemoglobin Ql (U) Trace-intact Abnormal Negative [facility] Interpretation and review of laboratory results Abnormal [facility] KETONE UA (POCT) Negative Negative mg/dL [facility] LEUKOCYTES UA (POCT) Negative Negative [facility] NITRITE UA (POCT) Negative Negative [facility] PH UA (POCT) 5.5 4.5 - 8.0 [facility] Protein Ql (U) Negative Negative mg/dL [facility] SPECIFIC GRAVITY UA (POCT) 1.01 1.005 - 1.030 [facility] UROBILINOGEN UA (POCT) 0.2 Normal E.U./d L [facility] Location:[facility], [address], [place], [address] [facility] POINT [facility] CARE [facility] Ricardo 09-04-2024 ARSH Telephone (OBGYW) ---- GABE VIERA ([id number]) 1995 F O[place]FRE Date Time Provider Department 09/04/24 BROOKLYN VILLALPANDO During your visit today, we recorded the following information about you: Rita Chairez RN 09/04/2024 1:26 PM Signed 12w4d Patient calling with update after going to [place] ER yesterday. She thought she had UTI, but was told urine was negative and to f/u with OB provider. No u/s was done. Stated pain has lessened since yesterday, but she is still having constant pressure feeling like her bladder is full. She is having some brown discharge still from when she had bleeding on 08/29 (she went to [facility] ER for this and did have u/s [...] Status:Closed by KLARISSA BECKETT on 09/04/24 Normal [facility] ED NOTEon 09-03-2024 ED NOTE HNO ID: [id number] Author: SYLVIA SOOD, KATIE Service: ? Author [...] anything else to help you? No Normal [facility] ED NOTE HNO ID: [id number] Author: AMPARO BLAKE, KATIE Service: ? Author Type: Registered Nurse Type: ED Notes Filed: 09/03/2024 20:54 Note Text: Pt c/o pelvic and back pain that started this morning. States does not feel like normal uti pain. Pt states she is 12w . OB US last . States she is also having throat and ear pain. Normal [facility] ED PROV NOTEon 09-03-2024 ED PROV NOTE HNO ID: [id number] Author: VON LOZANO MD Service: Emergency Medicine [...] Range Bilirubin, Urine 1+ (*) Negative Specific [place], Ur >=1.030 (*) 1.005 - 1.030 Hemoglobin/Blood,Ur [...] she lovelace (more content not included)... Normal [facility] S pyo DNA Throat Ql JOSEFA+prob levi 09-03-2024 S. pyogenes DNA JOSEFA+probe Ql (Throat) Not detected Normal Not detected [facility] Comment on above: Order Comment: Speci men Type: SWAB [facility] Address: [address] [place] [address] Performed By: #### 6 0489-2 #### [facility] CLIA [id number] [address] [place] [address] [facility] Urinalysis complete panel (U )on 09-03-2024 Bacteria LM.HPF (Urine sed) [#/Area] Few Abnormal None Seen [facility] Comment on above: Order Comment: Speci men Type: URINE SPECIMEN [facility] Address: [address] [place] [address] Performed By: #### 2 4356-8 #### [facility] CLIA [id number] [address] [place] [address] Bilirubin Ql (U) 1+ Abnormal Negative [facility] Comment on above: Order Comment: Speci men Type: URINE SPECIMEN [facility] Address: [address] [place] [address] Result Comment: Sugg est correlation with clinical findings and serum bilirubin if clinically indicated. Performed By: #### 2 4356-8 #### [facility] CLIA [id number] [address] [place], [place] [id number] [facility] Clarity (Unsp spec) Clear Normal Clear [facility] Comment on above: Order Comment: Speci men Type: URINE SPECIMEN [facility] Address: [address] [place] [address] Performed By: #### 2 4356-8 #### [facility] CLIA [id number] [address] [place] [address] [facility] Color (U) Yellow Normal Yellow [facility] Comment on above: Order Comment: Speci men Type: URINE SPECIMEN [facility] Address: [address] [place] [address] Performed By: #### 2 4356-8 #### [facility] CLIA [id number] [address] [place] [address] [facility] [place] Epithelial cells LM.HPF (Urine sed) [#/Area] Few Normal [facility] Comment on above: Order Comment: Speci men Type: URINE SPECIMEN [facility] Address: [address] [place] [address] Performed By: #### 2 4356-8 #### [facility] CLIA [id number] [address] [place] [address] [facility] [place] Glucose Test strip (U) [Mass/Vol] Negative Normal Negative [facility] Comment on above: Order Comment: Speci men Type: URINE SPECIMEN [facility] Address: [address] [place] [address] Performed By: #### 2 4356-8 #### [facility] CLIA [id number] [address] [place] [address] [facility] Hemoglobin Ql (U) Trace Abnormal Negative [facility] Comment on above: Order Comment: Speci men Type: URINE SPECIMEN [facility] Address: [address] [place] [address] Performed By: #### 2 4356-8 #### [facility] CLIA [id number] [address] [place] [address] [place] Ketones Ql (U) Negative Normal Negative [facility] Comment on above: Order Comment: Speci men Type: URINE SPECIMEN [facility] Address: [address] [place] [address] Performed By: #### 2 4356-8 #### [facility] CLIA [id number] [address] [place] [address] [place] Leukocyte esterase Test strip Ql (U) Negative Normal Negative [facility] Comment on above: Order Comment: Speci men Type: URINE SPECIMEN [facility] Address: [address] [place] [address] Performed By: #### 2 4356-8 #### [facility] CLIA [id number] [address] [place] [address] [place] Nitrite Ql (U) Negative Normal Negative [facility] Comment on above: Order Comment: Speci men Type: URINE SPECIMEN [facility] Address: [address] [place] [address] Performed By: #### 2 4356-8 #### [facility] CLIA [id number] [address] [place] [address] [place] pH (U) 5.5 [pH] Normal 5.0-8.0 [facility] Comment on above: Order Comment: Speci men Type: URINE SPECIMEN [facility] Address: [address] [place] [address] Performed By: #### 2 4356-8 #### [facility] CLIA [id number] [address] [place] [address] [place] Protein (U) [Mass/Vol] Trace Abnormal Negative [facility] Comment on above: Order Comment: Speci men Type: URINE SPECIMEN [facility] Address: [address] [place] [address] Performed By: #### 2 4356-8 #### [facility] CLIA [id number] [address] [place] [address] [place] [facility] RBC LM.HPF (Urine sed) [#/Area] 0-3 /HPF Normal 0-3 /HPF [facility] Comment on above: Order Comment: Speci men Type: URINE SPECIMEN [facility] Address: [address] [place] [address] Performed By: #### 2 4356-8 #### [facility] CLIA [id number] [address] [place] [address] [place] Specific gravity (U) [Rel density] >=1.030 High 1.005-1.030 [facility] Comment on above: Order Comment: Speci men Type: URINE SPECIMEN [facility] Address: [address] [place] [address] Performed By: #### 2 4356-8 #### [facility] CLIA [id number] [address] [place] [address] [facility] Urobilinogen Ql (U) 0.2 EU/dL Normal 0.2-1.0 EU/dL [facility] Comment on above: Order Comment: Speci men Type: URINE SPECIMEN [facility] Address: [address] [place] [address] Performed By: #### 2 4356-8 #### [facility] CLIA [id number] [address] [place] WBC LM.HPF (Urine sed) [#/Area] 0-5 /HPF Normal 0-5 /HPF [facility] Comment on above: Order Comment: Speci men Type: URINE SPECIMEN [facility] Address: [address] [place] [address] Performed By: #### 2 4356-8 #### [facility] CLIA [id number] [address] [place] [address] [facility] Urine Cultureon 08-31-2024 URC Culture exhibits no growth. Normal [facility] Comment on above: Performed By: #### M 100.2200 #### [facility] [address] [place], [address] [facility] GABE VIERA ([id number]) 1995 F [facility] Date Time Provider Department 08/30/24 SUNITHA AGUILAR During your visit today, we recorded the following information about you: Rita Chairez, RN 08/30/2024 3:52 PM Signed 11w6d Patient went to [facility] ER yesterday for bleeding in . Was [...] Date Reviewed: 08/22/2024 Reviewed by: Freda Santillan APRN.[employer] - Fully Assessed Reason for Visit: ER [...] Status:Closed by RITA CHAIREZ on 08/30/24 Normal [facility] Transvaginal w/Preg USon Transvaginal w/Preg US [facility] Services [address] [place], [place] [id number] Transvaginal w/Preg US MR#: [id number] Acct: [id number] Name: GAEB VIERA Rep #: [id number] : 1995 F 28 From: Luis Boyce MD PCP: LAYLA Bartholomew Status: REG ER Study: Transvaginal w/Preg US Date of Exam: 08/30/24 Exam# [id number] Ordering Dr: Carlos Bliss DO PROCEDURE: TRANSVAGINAL [...] tones 174 beats per minute. Reading Location: [facility] CC: LAYLA Morgan; Dr. Carlos Bliss DO Offset Pressman: Signed Normal [facility] hCG Titer Quant., Serumon HCG QUANT. 46364 mIU/mL High <9 non-preg [facility] Comment on above: Result Comment: Gest ational Age 0.2-1 Week: 5-50 mIU/mL 1-2 Weeks: 50-500 mIU/mL 2-3 Weeks: 100-5000 mIU/mL 3-4 Weeks: 500-10,000 mIU/mL 4-5 Weeks:1000-50,000 mIU/mL 5-6 Weeks: 10,000-100,000 mIU/mL 6-8 Weeks: 15,000-200,000 mIU/mL 2-3 Months:10,000-100,000 mIU/mL Performed By: #### B 882-1, L700.8000 #### [facility] [address] [place], [address] W355-3sy 08-29-2024 ABO and Rh group Nom (Bld) Blood group O Rh(D) negative Normal [facility] Comment on above: Performed By: #### B 882-1, L700.8000 #### [facility] [address] [place], [address] Basic Metabolic Profile (BMP )on 08-29-2024 BUN/CRE 10.5 RATIO Normal 10-20 [facility] Comment on above: Performed By: #### L 500.2500, L100.0100 ####[facility] [address] [place], [address] Calcium [Mass/Vol] 8.9 mg/dL Normal 7.6-11.0 [facility] Comment on above: Performed By: #### L 500.2500, L100.0100 ####[facility] [address] [place], [address] Chloride [Moles/Vol] 102 mmol/L Normal 98-108 [facility] Comment on above: Performed By: #### L 500.2500, L100.0100 ####[facility] [address] [place], [address] CO2 [Moles/Vol] 23.1 mmol/L Normal 21.0-32.0 [facility] Comment on above: Performed By: #### L 500.2500, L100.0100 ####[facility] [address] [place], [address] Creatinine [Mass/Vol] 0.62 mg/dL Low 0.70-1.20 [facility] Comment on above: Performed By: #### L 500.2500, L100.0100 ####[facility] [address] [place], [address] ECRCL 129.75 ml/min Normal 50-250 [facility] Comment on above: Performed By: #### L 500.2500, L100.0100 ####[facility] [address] [place], [address] GAP 10 Normal 5-15 [facility] Comment on above: Performed By: #### L 500.2500, L100.0100 ####[facility] [address] [place], [address] GFR/1.73 sq M.predicted among non-blacks MDRD (S/P/Bld) [Vol rate/Area] 126 mL/min/{1.73_m2} Normal >60 [facility] Comment on above: Result Comment: mL/m in/1.73m2 CKD-EPI Creatinine Equation (2020) Performed By: #### L 500.2500, L100.0100 ####[facility] [address] [place], [address] Glucose [Mass/Vol] 83 mg/dL Normal 70-99 [facility] Comment on above: Performed By: #### L 500.2500, L100.0100 ####[facility] [address] [place], [address] Potassium [Moles/Vol] 3.8 mmol/L Normal 3.3-5.1 [facility] Comment on above: Performed By: #### L 500.2500, L100.0100 ####[facility] [address] [place], [address] Sodium [Moles/Vol] 135 mmol/L Normal 133-145 [facility] Comment on above: Performed By: #### L 500.2500, L100.0100 ####[facility] [address] [place], [address] Urea nitrogen [Mass/Vol] 7 mg/dL Normal 4-19 [facility] Comment on above: Performed By: #### L 500.2500, L100.0100 ####[facility] [address] [place], [address] CBC W/Diff, Automatedon 05-2 2-2024 Absolute Lymph 3.48 X10 3/uL Normal 0.83-4.51 [facility] Comment on above: Performed By: #### L 500.2500, L100.0100 #### [facility] [address] [place], [address] Absolute Neut 8.1 X10 3/uL High 2.0-7.7 [facility] Comment on above: Performed By: #### L 500.2500, L100.0100 #### [facility] [address] [place], [address] Basophils/100 WBC (Bld) 0.3 % Normal 0-1 [facility] Comment on above: Performed By: #### L 500.2500, L100.0100 #### [facility] [address] [place], [address] Eosinophils/100 WBC (Bld) 1.1 % Normal 0-5 [facility] Comment on above: Performed By: #### L 500.2500, L100.0100 #### [facility] [address] [place], [address] Erythrocyte distribution width (RBC) [Ratio] 12.9 % Normal 11.6-14.6 [facility] Comment on above: Performed By: #### L 500.2500, L100.0100 #### [facility] [address] [place], [address] Hematocrit (Bld) [Volume fraction] 35.6 % Low 37-47 [facility] Comment on above: Performed By: #### L 500.2500, L100.0100 #### [facility] [address] [place], [address] Hemoglobin (Bld) [Mass/Vol] 12.2 g/dL Normal 12.0-15.0 [facility] Comment on above: Performed By: #### L 500.2500, L100.0100 #### [facility] [address] [place], [address] IG% 0.200 Normal 0.0-0.9 [facility] Comment on above: Result Comment: IG% - Immature Granulocytes (promyelocytes, myelocytes and metamyelocytes) > 1% indicates that a LEFT SHIFT is Present. Performed By: #### L 500.2500, L100.0100 #### [facility] [address] [place], [address] Lymphocytes/100 WBC (Bld) 28.0 % Normal 19-41 [facility] Comment on above: Performed By: #### L 500.2500, L100.0100 #### [facility] [address] [place], [address] MCH (RBC) [Entitic mass] 31.9 pg Normal 27.0-32.0 [facility] Comment on above: Performed By: #### L 500.2500, L100.0100 #### [facility] [address] [place], [address] MCHC (RBC) [Mass/Vol] 34.3 g/dL Normal 32-36 [facility] Comment on above: Performed By: #### L 500.2500, L100.0100 #### [facility] [address] [place], [address] MCV (RBC) [Entitic vol] 93.2 fL Normal 81-99 [facility] Comment on above: Performed By: #### L 500.2500, L100.0100 #### [facility] [address] [place], [address] Monocytes/100 WBC (Bld) 5.0 % Normal 0-10 [facility] Comment on above: Performed By: #### L 500.2500, L100.0100 #### [facility] [address] [place], [address] Neutrophils/100 WBC (Bld) 65.4 % Normal 47-70 [facility] Comment on above: Performed By: #### L 500.2500, L100.0100 #### [facility] [address] [place], [address] Nucleated RBC (Bld) [#/Vol] 0 10*3/uL Normal 0-5 [facility] Comment on above: Performed By: #### L 500.2500, L100.0100 #### [facility] [address] [place], [address] Platelet mean volume (Bld) [Entitic vol] 10.0 fL Normal 6.2-12.0 [facility] Comment on above: Performed By: #### L 500.2500, L100.0100 #### [facility] [address] [place], [address] Platelets (Bld) [#/Vol] 242 10*3/uL Normal 150-450 [facility] Comment on above: Performed By: #### L 500.2500, L100.0100 #### [facility] [address] [place], [address] RBC (Bld) [#/Vol] 3.82 10*6/uL Low 4.2-5.4 [facility] Comment on above: Performed By: #### L 500.2500, L100.0100 #### [facility] [address] [place], [address] RDW SD 44.1 fl High 35.1-43.9 [facility] Comment on above: Performed By: #### L 500.2500, L100.0100 #### [facility] [address] [place], [address] WBC (Bld) [#/Vol] 12.4 10*3/uL High 4.4-11.0 [facility] Comment on above: Performed By: #### L 500.2500, L100.0100 #### [facility] [address] [place], [address] Emergency Department Summary on 08-29-2024 Emergency Department Summary [facility] Medical Records Department [address] [place] [address] Emergency Department Summary 08/29/24 MR#: [id number] Acct: [id number] Name: GABE VIERA Rep #: [id number] : 1995 28 From: Carlos Bliss DO [...] states that she followed up with her LYE BATH OPERATOR in outpatient setting they did an ultrasound [...] to come here for the evaluation management. [facility] Medical History Contact with and (suspected) exposure [...] Unknown Hi story estradiol 0.035 mg tablet ([place]) Allergy/AdvReac Type Severity Reaction Status Date / [...] follow commands knew that she was at [facility] year is 2024 Skin: Warm, dry, [...] advised to follow-up on this with her LYE BATH OPERATOR. Multiple people attempted to obtain heart tones including we called OB team down and they were unable to do so since this was the case we ordered a transvaginal ultrasound wa (more content not included)... Normal [facility] Urinalysis, Completeon 08-29 BACTERIA 1+ /hpf Normal None Seen [facility] Comment on above: Order Comment: CLEAN CATCH Performed By: #### L 400.0001 ####[facility] [address] [place], [address] RBC 0-5 SEEN Normal 0-5 [facility] Comment on above: Order Comment: CLEAN CATCH Performed By: #### L 400.0001 ####[facility] [address] [place], [address] EPI,SQUAMOUS 5-10 SEEN Normal 5-10 [facility] Comment on above: Order Comment: CLEAN CATCH Performed By: #### L 400.0001 ####[facility] [address] [place], [address] WBC 0-5 SEEN Normal 0-5 [facility] Comment on above: Order Comment: CLEAN CATCH Performed By: #### L 400.0001 ####[facility] [address] [place], [address] Mucus Ql (Urine sed) 0 SEEN Normal [facility] Comment on above: Order Comment: CLEAN CATCH Performed By: #### L 400.0001 ####[facility] [address] [place], [address] BACTERIAL VAGINOSIS NAATon 0 - Lactobacillus crispatus+gasseri+jense tanvir + Gardnerella vaginalis + Atopobium vaginae rRNA JOSEFA+probe Ql (Vag fld) Not detected Normal Not detected [facility] Comment on above: Order Comment: Speci men Type: SWABOrdering Facility: [facility] Address: [address] [place] [address] Performed By: #### C VTV, BVAMP ####[facility] LABCLIA [id number] [place] [address] [place] YOUSUF/TRICHOMONAS NAATon 0 - C. glabrata RNA JOSEFA+probe Ql (Vag fld) Not detected Normal Not detected [facility] Comment on above: Order Comment: Speci men Type: SWABOrdering Facility: [facility] Address: [address] [place] [address] Performed By: #### C VTV, BVAMP ####[facility] LABIA [id number] [address] [place] Yousuf sp DNA JOSEFA+probe Ql (Vag fld) Not detected Normal Not detected [facility] Comment on above: Order Comment: Speci men Type: SWABOrdering Facility: [facility] Address: [address] [place] [address] Result Comment: The Yousuf species group target includes C. albicans, C. tropicalis, C. parapsilosis, and C. dubliniensis. Performed By: #### C VTV, BVAMP ####[facility] LABIA [id number] [address] [place] T. vaginalis DNA JOSEFA+probe Ql (Unsp spec) Not detected Normal Not detected [facility] Comment on above: Order Comment: Speci men Type: SWABOrdering Facility: [facility] Address: [address] [place] [address] Performed By: #### C VTV, BVAMP ####[facility] [id number] [address] [place] [facility]ardo [facility]-2024 [facility] ---- GABE VIERA ([id number]) 1995 F [facility] Date Time Provider Department 08/21/24 FREDA [...] Date Reviewed: 08/15/2024 Reviewed by: Agustín Blackwell APRN.DRYWALL FINISHING FOREMAN - Fully Assessed Reason for Visit: Early [...] Encounter Status:Closed by KLARISSA BECKETT on 08/22/24 [facility] AYLINGABE Xavier ([id number]) 1995 F [facility] Date Time Provider Department 08/21/24 FREDA SANTILLAN During your visit today, we recorded the following information about you: Osmani Juarez MA 08/21/2024 2:25 PM Signed Patients intermittent [facility] paperwork has been completed and faxed back to employer. Patient notified. Osmani Juarez MA Allergies As of Date: 08/21/2024 Noted Allergy Reaction AMOXICILLIN 07/21/2014 7 - Swelling PENICILLINS 07/21/2014 7 - Swelling Date Reviewed: 08/15/2024 Reviewed by: Agustín Blackwell APRN.DRYWALL FINISHING FOREMAN - Fully Assessed Reason for Visit: [facility] Paperwork [4185] Prescriptions as of 08/21/2024 [...] Encounter Status:Closed by OSMANI JUAREZ on 08/21/24 [facility] CNOVon 08-15-2024 CNOV Office Visit (AGINTMLW) ---- GABE VIERA ([id number]) 1995 F [facility] Date Time Provider Department 08/15/24 2:20 PM AGUSTÍN BLACKWELL AGINTMLW During your visit today, we recorded the following information about you: Temperature Pulse Blood pressure Weight 98.5 degrees 76/minute 102/62 66 kg Height 1.626 m Agustín Blackwell, MAMMOGRAPHY TECHNICIAN.DRYWALL FINISHING FOREMAN 08/15/2024 3:33 PM Signed This note was created using [employer]. Subjective Gabe Viera is a 28 year old female patient of [facility] Queden here today for acute visit for [...] of High Risk in First Trimester, Antepartum ([facility]) Depression With Anxiety Nausea and Vomiting [...] of left (more content not included)... Normal [facility] CNPNon 08-06-2024 CNPN Telephone (AGPSYACC) ---- VIERAGABE Nayak ([id number]) 1995 [facility] Date Time Provider Department 08/06/24 TIANA [...] Date Reviewed: 08/01/2024 Reviewed by: Freda Santillan APRN.DRYWALL FINISHING FOREMAN - Fully Assessed Prescriptions as of 08/06/2024 [...] by QASIM WORRELL on 08/06/24 [facility]24 CNPN Telephone (PSYRMN) ---- GABE VIERA ([id number]) 1995 [facility] Date Time Provider Department 08/02/24 ARIEL RAWLS PSYRMN During your visit today, we recorded the following information about you: Ariel Rawls LISW 08/02/2024 12:23 PM Signed Review of referral with patient. Was patient aware of [facility] referral placement by provider?Yes Is the patient currently connected for care : No If not connected to Care are they agreeable to referral?Yes If agreeable to referral, are they:Internal Comment: [facility] psychiatry Assisted in making appt at: [facility] psychiatry Appointment date and time: 08/06/24 [...] off work a lot. Patient agreeable to [facility] psychiatry appointment: appointment scheduled. Patient declines interest in counseling at this time, but verbalized understanding that [facility] SW can assist patient in connecting with counseling in the future if needed/wanted. 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 Patient did not answer, left message. 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 - Other [3602] Cmt: WB Consult Follow [...] Status:Closed by ARIEL RAWLS on 08/02/24 Normal [facility] BACTERIAL VAGINOSIS NAATon 0 08-01-2024 Lactobacillus crispatus+gasseri+jense tanvir + Gardnerella vaginalis + Atopobium vaginae rRNA JOSEFA+probe Ql (Vag fld) Not detected Normal Not detected [facility] Comment on above: Order Comment: Speci men Type: BLOOD SPECIMEN [facility] Address: [address] [place] [address] [place] [address] Performed By: #### 5 195-3, 24634-3, 12178-1 #### [facility] CLIA [id number] [address] [place] [address] [place] Bacteria Ur Culton Bacteria identified Cx Nom (U) ORGANISM ID: 1 10,000 -<50,000 CFU/ml Normal urogenital david Normal [facility] Comment on above: Performed By: #### 6 30-4 ####[facility] LABCLIA [id number] [place] [address] [place] C. trachomatis+N. gonorrhoea e DNA JOSEFA+probe Ql (Unsp spec)on 08-01-2024 C. trachomatis rRNA JOSEFA+probe Ql (Unsp spec) Not detected Normal Not detected [facility] Comment on above: Order Comment: Speci men Type: BLOOD SPECIMEN [facility] Address: [address] [place] [address] Performed By: #### 5 195-3, 99973-8, 81719-1 #### [facility] CLIA [id number] [address] [place] [address] [place] N. gonorrhoeae rRNA JOSEFA+probe Ql (Unsp spec) Not detected Normal Not detected [facility] Comment on above: Order Comment: Speci men Type: BLOOD SPECIMEN [facility] Address: [address] [place] [address] Performed By: #### 5 195-3, 15058-2, 23659-3 #### [facility] CLIA [id number] [address] [place] [address] [place] YOUSUF/TRICHOMONAS NAATon 0 08-01-2024 C. glabrata RNA JOSEFA+probe Ql (Vag fld) Detected Abnormal Not detected [facility] Comment on above: Order Comment: Speci men Type: BLOOD SPECIMEN [facility] Address: [address] [place] [address] Performed By: #### 5 195-3, 65446-1, 73936-8 #### [facility] CLIA [id number] [address] [place] [address] [place] Yousuf sp DNA JOSEFA+probe Ql (Vag fld) Detected Abnormal Not detected [facility] Comment on above: Order Comment: Speci men Type: BLOOD SPECIMEN [facility] Address: [address] [place] [address] Result Comment: The Yousuf species group target includes C. albicans, C. tropicalis, C. parapsilosis, and C. dubliniensis. Performed By: #### 5 195-3, 40456-6, 40660-1 #### [facility] CLIA [id number] [address] [place] [address] [place] T. vaginalis DNA JOSEFA+probe Ql (Unsp spec) Not detected Normal Not detected [facility] Comment on above: Order Comment: Speci men Type: BLOOD SPECIMEN [facility] Address: [address] [place] [address] Performed By: #### 5 195-3, 18549-0, 49693-4 #### [facility] CLIA [id number] [address] [place] [address] [place] PAP TESTon 08-01-2024 ADEQUACY Normal [facility] Comment on above: Order Comment: Speci men Type: BLOOD SPECIMEN [facility] Address: [address] [place] [address] Result Comment: Sati sfactory for interpretation. Transformation zone present Performed By: #### 5 195-3, 64571-4, 39777-1 #### [facility] CLIA [id number] [address] [place] [address] [place] CASE REPORT Normal [facility] Comment on above: Order Comment: Speci men Type: BLOOD SPECIMEN [facility]ing [facility] Address: [address] [place] [address] Result Comment: Gyne cologic Cytology Report Case: [id number] Authorizing Provider: Freda Santillan APRN.DRYWALL FINISHING FOREMAN Collected: 08/01/2024 02:25 PM Ordering Location: OB/Gynecology Received: 08/01/2024 04:43 PM First Screen: Venessa Bunch, CT, ASCP Rescreen: Freda Burgos, CT, ASCP Specimen: Pap Test, ThinPrep, Cervix Performed By: #### 5 195-3, 19841-1, 73345-8 #### [facility] CLIA [id number] [address] [place] [address] [place] CLINICAL HISTORY, CYTOLOGY, WEB OPERATIONS SPECIALIST Routine Exam Normal [facility] Comment on above: Order Comment: Speci men Type: BLOOD SPECIMEN [facility] Address: [address] [place] [address] Performed By: #### 5 195-3, 30303-7, 61965-8 #### [facility] CLIA [id number] [address] [place] [address] [place] [facility] FINAL PERFORMING LAB Normal [facility] Comment on above: Order Comment: Speci men Type: BLOOD SPECIMEN [facility] Address: [address] [place] [address] Result Comment: Tech nical component, casing man screening performed at: [facility], [address] [place] [address] CLIA: [id number] Diagnostic interpretation performed at: [facility], [address] [place] [address] CLIA# [id number] Lead Web Developer: Sherry Winston MD Performed By: #### 5 195-3, 32466-9, 20528-2 #### [facility] CLIA [id number] [address] [place] [address] [place] INTERPRETATION, CYTOLOGY, WEB OPERATIONS SPECIALIST Normal [facility] Comment on above: Order Comment: Speci men Type: BLOOD SPECIMEN [facility] Address: [address] [place] [address] Result Comment: Nega tive for intraepithelial lesion or malignancy. at 0925 EDT Performed By: #### 5 195-3, 22801-8, 65912-3 #### [facility] CLIA [id number] [address] [place], [place] [address] [place] LMP 06/08/2024 Normal [facility] Comment on above: Order Comment: Speci men Type: BLOOD SPECIMEN [facility] Address: [address] [place] [address] Performed By: #### 5 195-3, 27340-5, 98099-2 #### [facility] CLIA [id number] [address] [place], [place] [address] [place] PAP DISCLAIMER COMMENT The Pap Smear is a screening test for cervical cancer. False negative results occur with all screening tests, emphasizing the need for rescreening at recommended intervals, and clinical correlation. Normal [facility] Comment on above: Order Comment: Speci men Type: BLOOD SPECIMEN [facility] Address: [address] [place] [address] Performed By: #### 5 195-3, 93309-5, 61726-9 #### [facility] CLIA [id number] [address] [place], [place] [address] [place] Absolute neutrophil countOrd ered By: ED PROVIDER on 07-15-2024 Neutrophils (Bld) [#/Vol] 6.2 10*3/uL 2.0-7.7 [facility] Anion gap in Serum or Plasma Ordered By: ED PROVIDER on 07-15-2024 Anion gap [Moles/Vol] 11 mmol/L 5-15 [facility] [id number] 07-15-2024 ABO and Rh group Nom (Bld) Blood group O Rh(D) negative Normal [facility] Comment on above: Performed By: #### B 882-1 #### [facility] [address] [place], [address] BUN/creatinine ratioOrdered By: ED PROVIDER on 07-15-2024 Urea nitrogen/Creatinine [Mass ratio] 5.7 mg/mg Low 10-20 [facility] Basophil percentageOrdered B y: ED PROVIDER on 07-15-2024 Basophils/100 WBC (Bld) 0.5 % 0-1 [facility] Beta HCG ( test) Ql Ordered By: ED PROVIDER on 07-15-2024 Serum Test, Qualitative Negative High [facility] Comment on above: TEST is *P OSITIVE* Bilirubin, totalOrdered By: ED PROVIDER on 07-15-2024 Bilirubin [Mass/Vol] 1.02 mg/dL 0.00-1.30 [facility] CBC W/Diff, Automatedon Absolute Lymph 2.69 X10 3/uL Normal 0.83-4.51 [facility] Comment on above: Performed By: #### L 100.0100, L700.6800, L500.4050, L501.2450 ####[facility] [address] [place], [address] Absolute Neut 6.2 X10 3/uL Normal 2.0-7.7 [facility] Comment on above: Performed By: #### L 100.0100, L700.6800, L500.4050, L501.2450 ####[facility] [address] [place], [address] Basophils/100 WBC (Bld) 0.5 % Normal 0-1 [facility] Comment on above: Performed By: #### L 100.0100, L700.6800, L500.4050, L501.2450 ####[facility] [address] [place], [address] Eosinophils/100 WBC (Bld) 1.0 % Normal 0-5 [facility] Comment on above: Performed By: #### L 100.0100, L700.6800, L500.4050, L501.2450 ####[facility] [address] [place], [address] Erythrocyte distribution width (RBC) [Ratio] 13.3 % Normal 11.6-14.6 [facility] Comment on above: Performed By: #### L 100.0100, L700.6800, L500.4050, L501.2450 ####[facility] [address] [place], [address] Hematocrit (Bld) [Volume fraction] 39.4 % Normal 37-47 [facility] Comment on above: Performed By: #### L 100.0100, L700.6800, L500.4050, L501.2450 ####[facility] [address] [place], [address] Hemoglobin (Bld) [Mass/Vol] 13.5 g/dL Normal 12.0-15.0 [facility] Comment on above: Performed By: #### L 100.0100, L700.6800, L500.4050, L501.2450 ####[facility] [address] [place], [address] IG% 0.400 Normal 0.0-0.9 [facility] Comment on above: Result Comment: IG% - Immature Granulocytes (promyelocytes, myelocytes and metamyelocytes) > 1% indicates that a LEFT SHIFT is Present. Performed By: #### L 100.0100, L700.6800, L500.4050, L501.2450 ####[facility] [address] [place], [address] Lymphocytes/100 WBC (Bld) 27.6 % Normal 19-41 [facility] Comment on above: Performed By: #### L 100.0100, L700.6800, L500.4050, L501.2450 ####[facility] [address] [place], [address] MCH (RBC) [Entitic mass] 31.9 pg Normal 27.0-32.0 [facility] Comment on above: Performed By: #### L 100.0100, L700.6800, L500.4050, L501.2450 ####[facility] [address] [place], [address] MCHC (RBC) [Mass/Vol] 34.3 g/dL Normal 32-36 [facility] Comment on above: Performed By: #### L 100.0100, L700.6800, L500.4050, L501.2450 ####[facility] [address] [place], [address] MCV (RBC) [Entitic vol] 93.1 fL Normal 81-99 [facility] Comment on above: Performed By: #### L 100.0100, L700.6800, L500.4050, L501.2450 ####[facility] [address] [place], [address] Monocytes/100 WBC (Bld) 6.7 % Normal 0-10 [facility] Comment on above: Performed By: #### L 100.0100, L700.6800, L500.4050, L501.2450 ####[facility] [address] [place], [address] Neutrophils/100 WBC (Bld) 63.8 % Normal 47-70 [facility] Comment on above: Performed By: #### L 100.0100, L700.6800, L500.4050, L501.2450 ####[facility] [address] [place], [address] Nucleated RBC (Bld) [#/Vol] 0 10*3/uL Normal 0-5 [facility] Comment on above: Performed By: #### L 100.0100, L700.6800, L500.4050, L501.2450 ####[facility] [address] [place], [address] Platelet mean volume (Bld) [Entitic vol] 9.8 fL Normal 6.2-12.0 [facility] Comment on above: Performed By: #### L 100.0100, L700.6800, L500.4050, L501.2450 ####[facility] [address] [place], [address] Platelets (Bld) [#/Vol] 277 10*3/uL Normal 150-450 [facility] Comment on above: Performed By: #### L 100.0100, L700.6800, L500.4050, L501.2450 ####[facility] [address] [place], [address] RBC (Bld) [#/Vol] 4.23 10*6/uL Normal 4.2-5.4 [facility] Comment on above: Performed By: #### L 100.0100, L700.6800, L500.4050, L501.2450 ####[facility] [address] [place], [address] RDW SD 45.8 fl High 35.1-43.9 [facility] Comment on above: Performed By: #### L 100.0100, L700.6800, L500.4050, L501.2450 ####[facility] [address] [place], [address] WBC (Bld) [#/Vol] 9.8 10*3/uL Normal 4.4-11.0 [facility] Comment on above: Performed By: #### L 100.0100, L700.6800, L500.4050, L501.2450 ####[facility] [address] [place], [address] CNPNon 07-15-2024 [facility] Telephone (OBGYWM) ---- VIERAGABE Nayak ([id number]) 1995 [facility] Date Time Provider Department 07/15/24 [place] [...] 07/10 for a ER follow up at [place] on 07/07. When she went to the [...] is actually already on her way to [place] ED. Patient states she has not had an increase in bleeding or pain/cramping since last call, but she is just feeling anxious and wants to be evaluated. Patient will call office tomorrow with update and schedule ultrasound if not done in ED. Will look for ER reports from [facility] tomorrow. KATIE Donis Trisha, RN 07/17/2024 9:37 AM Signed Patient did go to [facility] ER on 07/15/24. She did have labs and u/s. All records available under care everywhere. Copied some below. Should she get the repeat hcg done today at [facility]? This order was previously placed. US/Transvaginal w/Preg US IMPRESSION: Early intrauterine gestational sac with a yolk sac but no identifiable pole. Differential diagnosis includes an early intrauterine , or incomplete . Serial beta HCG measurements is recommended. [facility] hcg Result: HCG ( test) Ql Ordered [...] Fully Assessed Reason for Visit: Bleeding With [77025] Primary Visit Diagnosis:Pelvic pain in (HCC) [O26.899, R10.2] Other Visit Diagnosis:Bleeding in early (HCC) [O20.9] Order(s):PELVIC US WHI [[id number]] Order #: [id number]: 1 FUTURE HCG QUANTITATIVE [SQHCGQT] Order #: [id number] FUTURE Prescriptions as of 07/17/2024 - Vitamin [...] Status:Closed by SUNITHA AGUILAR on 07/17/24 Normal [facility] Carbon dioxide, total [Moles /volume] in Central venous bloodOrdered By: ED PROVIDER on 07-15-2024 CO2 [Moles/Vol] 23.8 mmol/L 21.0-32.0 [facility] Chloride assayOrdered By: ED PROVIDER on 07-15-2024 Chloride [Moles/Vol] 105 mmol/L 98-108 [facility] Comprehensive Metabolic Prof ilon 07-15-2024 Albumin [Mass/Vol] 4.3 g/dL Normal 3.5-5.0 [facility] Comment on above: Performed By: #### L 100.0100, L700.6800, L500.4050, L501.2450 ####[facility] [address] [place], [address] Albumin/Globulin [Mass ratio] 1.4 {ratio} Normal 0.9-2.4 [facility] [facility] Comment on above: Performed By: #### L 100.0100, L700.6800, L500.4050, L501.2450 ####[facility] [address] [place], [address] ALK PHOS 94 U/L Normal 35-104 [facility] Comment on above: Performed By: #### L 100.0100, L700.6800, L500.4050, L501.2450 ####[facility] [address] [place], [address] ALT [Catalytic activity/Vol] 7 U/L Normal <=34 [facility] Comment on above: Performed By: #### L 100.0100, L700.6800, L500.4050, L501.2450 ####[facility] [address] [place], [address] AST [Catalytic activity/Vol] 13 U/L Normal <=31 [facility] Comment on above: Performed By: #### L 100.0100, L700.6800, L500.4050, L501.2450 ####[facility] [address] [place], [address] Bilirubin [Mass/Vol] 1.02 mg/dL Normal 0.00-1.30 [facility] Comment on above: Performed By: #### L 100.0100, L700.6800, L500.4050, L501.2450 ####[facility] [address] [place], [address] BUN/CRE 5.7 RATIO Low 10-20 [facility] Comment on above: Performed By: #### L 100.0100, L700.6800, L500.4050, L501.2450 ####[facility] [address] [place], [address] Calcium [Mass/Vol] 9.3 mg/dL Normal 7.6-11.0 [facility] Comment on above: Performed By: #### L 100.0100, L700.6800, L500.4050, L501.2450 ####[facility] [address] [place], [address] Chloride [Moles/Vol] 105 mmol/L Normal 98-108 [facility] Comment on above: Performed By: #### L 100.0100, L700.6800, L500.4050, L501.2450 ####[facility] [address] [place], [address] CO2 [Moles/Vol] 23.8 mmol/L Normal 21.0-32.0 [facility] Comment on above: Performed By: #### L 100.0100, L700.6800, L500.4050, L501.2450 ####[facility] [address] [place], [address] Creatinine [Mass/Vol] 0.90 mg/dL Normal 0.70-1.20 [facility] Comment on above: Performed By: #### L 100.0100, L700.6800, L500.4050, L501.2450 ####[facility] [address] [place], [address] ECRCL 89.21 ml/min Normal 50-250 [facility] Comment on above: Performed By: #### L 100.0100, L700.6800, L500.4050, L501.2450 ####[facility] [address] [place], [address] GAP 11 Normal 5-15 [facility] Comment on above: Performed By: #### L 100.0100, L700.6800, L500.4050, L501.2450 ####[facility] [address] [place], [address] GFR/1.73 sq M.predicted among non-blacks MDRD (S/P/Bld) [Vol rate/Area] 91 mL/min/{1.73_m2} Normal >60 [facility] Comment on above: Result Comment: mL/m in/1.73m2 CKD-EPI Creatinine Equation (2020) Performed By: #### L 100.0100, L700.6800, L500.4050, L501.2450 ####[facility] [address] [place], [address] Globulin (S) [Mass/Vol] 3.2 g/dL Normal 2.2-4.2 [facility] Comment on above: Performed By: #### L 100.0100, L700.6800, L500.4050, L501.2450 ####[facility] [address] [place], [address] Glucose [Mass/Vol] 55 mg/dL Low 70-99 [facility] Comment on above: Performed By: #### L 100.0100, L700.6800, L500.4050, L501.2450 ####[facility] [address] [place], [address] Potassium [Moles/Vol] 4.0 mmol/L Normal 3.3-5.1 [facility] Comment on above: Performed By: #### L 100.0100, L700.6800, L500.4050, L501.2450 ####[facility] [address] [place], [address] Sodium [Moles/Vol] 139 mmol/L Normal 133-145 [facility] Comment on above: Performed By: #### L 100.0100, L700.6800, L500.4050, L501.2450 ####[facility] [address] [place], [address] T PROT 7.4 g/dL Normal 5.9-8.4 [facility] Comment on above: Performed By: #### L 100.0100, L700.6800, L500.4050, L501.2450 ####[facility] [address] [place], [address] Urea nitrogen [Mass/Vol] 5 mg/dL Normal 4-19 [facility] Comment on above: Performed By: #### L 100.0100, L700.6800, L500.4050, L501.2450 ####[facility] [address] [place], [address] Emergency Department Summary on 07-15-2024 Emergency Department Summary [facility] Medical Records Department [address] [place] [address] Emergency Department Summary 07/15/24 MR#: [id number] Acct: [id number] Name: GABE VIERA Rep #: [id number] : 1995 28 From: Jacinto Abarca DO [...] age. Recommended against Rhogam at this time. [facility] Narrative: The patient was initially hemodynamically stable, [...] with patient who agreed to follow with LYE BATH OPERATOR. Strict return precautions were discussed. Follow-up was [...] Discharge home This note was generated with Qiniu dictation software. It may contain incorrect words, spelling, and punctuation that were not noted in review of the chart prior to signing. 07/15/242054 Cosigner Signature (if applicable): cc: LAYLA Morgan * Signed HPI History of Present Illness Chief Complaint: Abd Pain [facility] Medical History (Updated 12/06/22 @ 15:33 by Amparo CHRISTIANSON, [place]) Contact with and (suspected) exposure to other viral communicable diseases Acute streptococcal pharyngitis COVID-19 URI (upper respi (more content not included)... Normal [facility] Eosinophil percentageOrdered By: ED PROVIDER on 07-15-2024 Eosinophils/100 WBC (Bld) 1.0 % 0-5 [facility] Erythrocyte distribution wid th (RBC) [Ratio]Ordered By: ED PROVIDER on 07-15-2024 Erythrocyte distribution width (RBC) [Entitic vol] 45.8 fL High 35.1-43.9 [facility] Erythrocyte distribution wid th ratioOrdered By: ED PROVIDER on 07-15-2024 Erythrocyte distribution width (RBC) [Ratio] 13.3 % 11.6-14.6 [facility] Estimation of creatinine livia aranceOrdered By: ED PROVIDER on 07-15-2024 Estimated Creatinine Clearance Calc 89.21 ml/min 50-250 [facility] GFR/1.73 sq M.predicted marilyn g non-blacks MDRD (S/P/Bld) [Vol rate/Area]Ordered By: ED PROVIDER on 07-15-2024 Estimated GFR (MDRD) Non-Af Amer 91 >60 [facility] [facility] Comment on above: mL/min/1.73m2 CKD-EP I Creatinine Equation (2020) HCG ( test) QlOrder ed By: Jacinto Abarca on 07-15-2024 Human Chorionic Gonadotropin, Quant 5000 mIU/mL High <9 [facility] Comment on above: Gestational Age0.2-1 Week: 5-50 mIU/mL1-2 Weeks: 50-500 mIU/mL2-3 Weeks: 100-5000 mIU/mL3-4 Weeks: 500-10,000 mIU/mL4-5 Weeks:1000-50,000 mIU/mL5-6 Weeks: 10,000-100,000 mIU/mL6-8 Weeks: 15,000-200,000 mIU/mL2-3 Months:10,000-100,000 mIU/mL Hematocrit Auto (Bld) [Volum e fraction]Ordered By: ED PROVIDER on 07-15-2024 Hematocrit (Bld) [Volume fraction] 39.4 % 37-47 [facility] Hemoglobin measurementOrdere d By: ED PROVIDER on 07-15-2024 Hemoglobin (Bld) [Mass/Vol] 13.5 g/dL 12.0-15.0 [facility] Immature granulocytes/100 WB C Auto (Bld)Ordered By: ED PROVIDER on 07-15-2024 Immature granulocytes/100 WBC (Bld) 0.400 % 0.0-0.9 [facility] Comment on above: IG% - Immature Granu locytes (promyelocytes, myelocytes and metamyelocytes) > 1% indicates that a LEFT SHIFT is Present. Laboratory - Chemistry and C hemistry - challengeOrdered By: ED PROVIDER on 07-15-2024 AST [Catalytic activity/Vol] 13 U/L <32 [facility] Lipaseon 07-15-2024 Lipase [Catalytic activity/Vol] 32 U/L Normal 13-75 [facility] Comment on above: Result Comment: Queenie jaquez note: LIPASE revised reference range effective 22. New Lipase methodology. Expected to produce lower values than the previous assay method. NEW Reference Range: 13 - 75 U/L Performed By: #### L 100.0100, L700.6800, L500.4050, L501.2450 ####[facility] [address] [place], [address] Lipase measurementOrdered By : ED PROVIDER on 07-15-2024 Lipase [Catalytic activity/Vol] 32 U/L 13-75 [facility] Comment on above: Please note:LIPASE r evised reference range effective 22. New Lipase methodology. Expected to produce lower values than the previous assay method. NEW Reference Range: 13 - 75 U/L Lymphocytes Auto (Unsp spec) [#/Vol]Ordered By: ED PROVIDER on 07-15-2024 Lymphocytes (Bld) [#/Vol] 2.69 10*3/uL 0.83-4.51 [facility] Lymphocytes/100 WBC Auto (Un sp spec)Ordered By: ED PROVIDER on 07-15-2024 Lymphocytes/100 WBC (Bld) 27.6 % 19-41 [facility] MCV (mean corpuscular volume ) determinationOrdered By: ED PROVIDER on 07-15-2024 MCV (RBC) [Entitic vol] 93.1 fL 81-99 [facility] Mean corpuscular hemoglobin (MCH) determinationOrdered By: ED PROVIDER on 07-15-2024 MCH (RBC) [Entitic mass] 31.9 pg 27.0-32.0 [facility] Mean corpuscular hemoglobin concentration (MCHC) determinationOrdered By: ED PROVIDER on 07-15-2024 MCHC (RBC) [Mass/Vol] 34.3 g/dL 32-36 [facility] Mean platelet volume determi nationOrdered By: ED PROVIDER on 07-15-2024 Platelet mean volume (Bld) [Entitic vol] 9.8 fL 6.2-12.0 [facility] Monocyte percentageOrdered B y: ED PROVIDER on 07-15-2024 Monocytes/100 WBC (Bld) 6.7 % 0-10 [facility] Neutrophil percentageOrdered By: ED PROVIDER on 07-15-2024 Neutrophils/100 WBC (Bld) 63.8 % 47-70 [facility] Nucleated red blood cell per centageOrdered By: ED PROVIDER on 07-15-2024 Nucleated RBC/100 WBC (Bld) [Ratio] 0 % 0-5 [facility] Platelet countOrdered By: ED PROVIDER on 07-15-2024 Platelets (Bld) [#/Vol] 277 10*3/uL 150-450 [facility] Potassium (Unsp spec) [Mass/ Vol]Ordered By: ED PROVIDER on 07-15-2024 Potassium [Moles/Vol] 4.0 mmol/L 3.3-5.1 [facility] ,Serum,hCG Quali.on 07-15-2024 HCG, SERUM QUAL Positive Abnormal [facility] Comment on above: Order Comment: CRITI ONOFRE VALUE CALLED TO [id number]/07/25 1720 Mally Black.RESULTS READ BACK BY SAME. Result Comment: PREG MIRANDA TEST is *POSITIVE* Performed By: #### L 100.0100, L700.6800, L500.4050, L501.2450 ####[facility] [address] [place], [place], [address] RBC Auto (Bld) [#/Vol]Ordere d By: ED PROVIDER on 07-15-2024 RBC (Bld) [#/Vol] 4.23 10*6/uL 4.2-5.4 [facility] Serum creatinine measurement (mass/volume)Ordered By: ED PROVIDER on 07-15-2024 Creatinine [Mass/Vol] 0.90 mg/dL 0.70-1.20 [facility] Serum globulin measurementOr dered By: ED PROVIDER on 07-15-2024 Globulin (S) [Mass/Vol] 3.2 g/dL 2.2-4.2 [facility] Serum glucose measurement (m ass/volume)Ordered By: ED PROVIDER on 07-15-2024 Glucose [Mass/Vol] 55 mg/dL Low 70-99 [facility] Serum or plasma alanine brennan otransferase (ALT) measurementOrdered By: ED PROVIDER on 07-15-2024 ALT [Catalytic activity/Vol] 7 U/L <35 [facility] Serum or plasma albumin mahesh urement (mass/volume)Ordered By: ED PROVIDER on 07-15-2024 Albumin [Mass/Vol] 4.3 g/dL 3.5-5.0 [facility] Serum or plasma albumin/glob ulin mass ratioOrdered By: ED PROVIDER on 07-15-2024 Albumin/Globulin [Mass ratio] 1.4 {ratio} 0.9-2.4 [facility] Serum or plasma alkaline vernon sphatase measurementOrdered By: ED PROVIDER on 07-15-2024 ALP [Catalytic activity/Vol] 94 U/L 35-104 [facility] Serum or plasma calcium mahesh urement (mass/volume)Ordered By: ED PROVIDER on 07-15-2024 Calcium [Mass/Vol] 9.3 mg/dL 7.6-11.0 [facility] Serum or plasma urea nitroge n measurement (mass/volume)Ordered By: ED PROVIDER on 07-15-2024 Urea nitrogen [Mass/Vol] 5 mg/dL 4-19 [facility] Sodium levelOrdered By: ED P ROVIDER on 07-15-2024 Sodium [Moles/Vol] 139 mmol/L 133-145 [facility] Total proteinOrdered By: ED PROVIDER on 07-15-2024 Protein [Mass/Vol] 7.4 g/dL 5.9-8.4 [facility] Transvaginal w/Preg USon Transvaginal w/Preg US [facility] Services [address] [place], [place] [address] Transvaginal w/Preg US MR#: [id number] Acct: [id number] Name: GABE VIERA Rep #: [id number] : 1995 F 28 From: Nick Jean MD PCP: Care Physician,No Primary Status: PRE ER Study: Transvaginal w/Preg US Date of Exam: 07/15/24 Exam# [id number] Ordering Dr: Jacinto Abarca DO PROCEDURE: TRANSVAGINAL [...] and unremarkable. DIMENSIONS: Parameter Measurement / EGA [place] Rump Length: Not visualized/ Gestational Sac: 7 [...] beta HCG measurements is recommended. Reading Location: [facility] CC: Dr. Jacinto Abarca DO; No Primary Care Physician Offset Pressman: Signed Normal [facility] White blood cell (WBC) count Ordered By: ED PROVIDER on 07-15-2024 WBC (Bld) [#/Vol] 9.8 10*3/uL 4.4-11.0 [facility] hCG Titer Quant., Serumon HCG QUANT. 5000 mIU/mL High <9 non-preg [facility] Comment on above: Result Comment: Gest ational Age 0.2-1 Week: 5-50 mIU/mL 1-2 Weeks: 50-500 mIU/mL 2-3 Weeks: 100-5000 mIU/mL 3-4 Weeks: 500-10,000 mIU/mL 4-5 Weeks:1000-50,000 mIU/mL 5-6 Weeks: 10,000-100,000 mIU/mL 6-8 Weeks: 15,000-200,000 mIU/mL 2-3 Months:10,000-100,000 mIU/mL Performed By: #### L 700.8000 #### [facility] [address] [place], [address] B-HCG SerPl-aCncon 5 HCG.beta subunit Qn 1045.0 m[IU]/mL High <5.0 [facility] Comment on above: Order Comment: Speci men Type: BLOOD SPECIMEN Ordering Facility: [facility] Address: [address] [place] [address] Result Comment: ADRIÁN TITATIVE HCG NORMAL RANGES Weeks of Gestation (Weeks Since LMP) 3 Weeks (5.8-71.2 mIU/mL) 4 Weeks (9.5-750 mIU/mL) 5 Weeks (217-7138 mIU/mL) 6 Weeks (158-12092 mIU/mL) 7 Weeks (3697-944804 mIU/mL) 8 Weeks (12094-185782 mIU/mL) 9 Weeks (96437-324602 mIU/mL) 10 Weeks (28145-996587 mIU/mL) 12 Weeks (96723-088154 mIU/mL) Referenced to 4th IS of [facility] Performed By: #### 5 195-3, 50300-9, 74396-1 #### [facility] CLIA [id number] [address] [place] [address] [facility] CNOVon 07-10-2024 CNOV Office Visit (OBGYWM) ---- GABE VIERA ([id number]) 1995 [facility] Date Time Provider Department 07/10/24 11:10 AM JOSE REESE OBGYWM During your visit today, we recorded the following information about you: Blood pressure Weight Last Period 124/70 67.8 kg 06/08/24 Jose Reese MD 07/10/2024 11:34 AM Signed Gabe Viera is a 28 year old female who presents for problem visit follow up [place], Emergency Room visit on 07/07/2024 for reported vaginal cramping requested additional Hcg lab order, last Hcg 07/07/2024 420.4. HPI:Patient see3n at [place] ER to confirm Quant. BHCG 420 Asked to repeat BHCG in 48 hrs and presents today for lab. Reports nausea w/o emesis and breast tenderness. 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5-750 mIU/mL) 5 Weeks (217-7138 mIU/mL) 6 Weeks (158-85733 mIU/mL) 7 Weeks (3697-912599 mIU/mL) 8 Weeks (09893-370231 mIU/mL) 9 Weeks (72170-674266 mIU/mL) 10 Weeks (60664-484626 mIU/mL) 12 Weeks (85358-156335 mIU/mL) Referenced to 4th IS of [facility] HCG.beta subunit Qnon 2024 Interpretation and review of laboratory results Abnormal [facility] ED NOTEon 07-08-2024 ED NOTE HNO ID: [id number] Author: RENETTA MAYES RN Service: Emergency Medicine [...] anything else to help you? No Normal [facility] ED NOTE HNO ID: [id number] Author: SILVIANO BROOKS RN Service: Emergency Medicine Author Type: Registered Nurse Type: ED Notes Filed: 07/08/2024 01:15 Note Text: Patient discharge instructions given to patient. Patient educated on discharge instructions and prescription. Patient denied having questions at this time regarding discharge instructions. Patient discharged home at this time. Normal [facility] ED PROV NOTEon 07-08-2024 ED PROV NOTE HNO ID: [id number] Author: GEOFFREY ARTHUR MD Service: Emergency Medicine [...] changes. Patient does not currently have a LYE BATH OPERATOR, and she does not take vitamins. Previously [...] cysts, pres (more content not included)... Normal [facility] B-HCG SerPl-aCncon 5 HCG.beta subunit Qn 420.4 m[IU]/mL High <5.[address] [facility] Comment on above: Order Comment: Speci men Type: BLOOD SPECIMEN Ordering Facility: [facility] Address: [address] [place] [address] Result Comment: ADRIÁN TITATIVE HCG NORMAL RANGES Weeks of Gestation (Weeks Since LMP) 3 Weeks (5.8-71.2 mIU/mL) 4 Weeks (9.5-750 mIU/mL) 5 Weeks (217-7138 mIU/mL) 6 Weeks (158-23178 mIU/mL) 7 Weeks (3697-418027 mIU/mL) 8 Weeks (10605-755546 mIU/mL) 9 Weeks (39918-544858 mIU/mL) 10 Weeks (79150-555340 mIU/mL) 12 Weeks (43812-189253 mIU/mL) Referenced to 4th IS of [facility] Performed By: #### 2 1198-7 #### [facility] CLIA [id number] [address] [place] [address] [place] CBC panel Auto (Bld)on 07-07 Erythrocyte distribution width (RBC) [Ratio] 13.5 % Normal 11.5-15.0 [facility] Comment on above: Order Comment: Speci men Type: URINE SPECIMEN Ordering Facility: [facility] Address: [address] [place] [address] Performed By: #### 2 4356-8 #### [facility] CLIA [id number] [address] [place] [address] [facility] Hematocrit (Bld) [Volume fraction] 43.3 % Normal 36.0-46.0 [facility] Comment on above: Order Comment: Speci men Type: URINE SPECIMEN Ordering Facility: [facility] Address: [address] [place] [address] Performed By: #### 2 4356-8 #### [facility] CLIA [id number] [address] [place] [address] [facility] [place] Hemoglobin (Bld) [Mass/Vol] 14.4 g/dL Normal 11.5-15.5 [facility] Comment on above: Order Comment: Speci men Type: URINE SPECIMEN Ordering Facility: [facility] Address: [address] [place] [address] Performed By: #### 2 4356-8 #### [facility] CLIA [id number] [address] [place] [address] [place] MCH (RBC) [Entitic mass] 31.2 pg Normal 26.0-34.0 [facility] Comment on above: Order Comment: Speci men Type: URINE SPECIMEN Ordering Facility: [facility] Address: [address] [place] [address] Performed By: #### 2 4356-8 #### [facility] CLIA [id number] [address] [place] [address] [place] MCHC (RBC) [Mass/Vol] 33.3 g/dL Normal 30.5-36.0 [facility] Comment on above: Order Comment: Speci men Type: URINE SPECIMEN Ordering Facility: [facility] Address: [address] [place] [address] Performed By: #### 2 4356-8 #### [facility] CLIA [id number] [address] [place] [address] [place] MCV (RBC) [Entitic vol] 93.9 fL Normal 80.0-100.0 [facility] Comment on above: Order Comment: Speci men Type: URINE SPECIMEN Ordering Facility: [facility] Address: [address] [place] [address] Performed By: #### 2 4356-8 #### [facility] CLIA [id number] [address] [place] [address] [place] Platelet mean volume (Bld) [Entitic vol] 9.9 fL Normal 9.0-12.7 [facility] Comment on above: Order Comment: Speci men Type: URINE SPECIMEN Ordering Facility: [facility] Address: [address] [place] [address] Performed By: #### 2 4356-8 #### [facility] CLIA [id number] [address] [place] [address] [place] Platelets (Bld) [#/Vol] 265 10*3/uL Normal 150-400 [facility] Comment on above: Order Comment: Speci men Type: URINE SPECIMEN Ordering Facility: [facility] Address: [address] [place] [address] Performed By: #### 2 4356-8 #### [facility] CLIA [id number] [address] [place] [address] [place] RBC (Bld) [#/Vol] 4.61 10*6/uL Normal 3.90-5.20 [facility] Comment on above: Order Comment: Speci men Type: URINE SPECIMEN Ordering Facility: [facility] Address: [address] [place] [address] Performed By: #### 2 4356-8 #### [facility] CLIA [id number] [address] [place] [address] [facility] WBC (Bld) [#/Vol] 11.65 10*3/uL High 3.70-11.00 [facility] Comment on above: Order Comment: Speci men Type: URINE SPECIMEN Ordering Facility: [facility] Address: [address] [place] [address] Performed By: #### 2 4356-8 #### [facility] CLIA [id number] [address] [place] [address] [facility] Comprehensive metabolic 2000 panelon 07-07-2024 Albumin [Mass/Vol] 4.3 g/dL Normal 3.9-4.9 [facility] Comment on above: Order Comment: Speci men Type: BLOOD SPECIMEN Ordering Facility: [facility] Address: [address] [place] [address] Performed By: #### 2 4323-8 #### [facility] CLIA [id number] [address] [place] [address] [facility] ALP [Catalytic activity/Vol] 94 U/L Normal 34-123 [facility] Comment on above: Order Comment: Speci men Type: BLOOD SPECIMEN Ordering Facility: [facility] Address: [address] [place] [address] Performed By: #### 2 4323-8 #### [facility] CLIA [id number] [address] [place] [address] [facility] ALT With P-5'-P [Catalytic activity/Vol] 7 U/L Normal 7-38 [facility] Comment on above: Order Comment: Speci men Type: BLOOD SPECIMEN Ordering Facility: [facility] Address: [address] [place] [address] Performed By: #### 2 4323-8 #### [facility] CLIA [id number] [address] [place] [address] [facility] Anion gap [Moles/Vol] 12 mmol/L Normal 8-15 [facility] Comment on above: Order Comment: Speci men Type: BLOOD SPECIMEN Ordering Facility: [facility] Address: [address] [place] [address] Performed By: #### 2 4323-8 #### [facility] CLIA [id number] [address] [place] [address] [place] AST With P-5'-P [Catalytic activity/Vol] 12 U/L Low 13-35 [facility] Comment on above: Order Comment: Speci men Type: BLOOD SPECIMEN Ordering Facility: [facility] Address: [address] [place] [address] Performed By: #### 2 4323-8 #### [facility] CLIA [id number] [address] [place] [address] [place] Bilirubin [Mass/Vol] 1.6 mg/dL High 0.2-1.3 [facility] Comment on above: Order Comment: Speci men Type: BLOOD SPECIMEN Ordering Facility: [facility] Address: [address] [place] [address] Performed By: #### 2 4323-8 #### [facility] [place] [facility] CLIA [id number] [address] [place] [address] [place] Calcium [Mass/Vol] 9.1 mg/dL Normal 8.5-10.2 [facility] Comment on above: Order Comment: Speci men Type: BLOOD SPECIMEN Ordering Facility: [facility] Address: [address] [place] [address] Performed By: #### 2 4323-8 #### [facility] CLIA [id number] [address] [place] [address] [place] Chloride [Moles/Vol] 103 mmol/L Normal 98-107 [facility] Comment on above: Order Comment: Speci men Type: BLOOD SPECIMEN Ordering Facility: [facility] Address: [address] [place] [address] Performed By: #### 2 4323-8 #### [facility] CLIA [id number] [address] [place] [address] [place] [facility] CO2 [Moles/Vol] 24 mmol/L Normal 22-30 [facility] Comment on above: Order Comment: Mich martinez Type: BLOOD SPECIMEN Ordering Facility: [facility] Address: [address] [place] [address] Performed By: #### 2 4323-8 #### [facility] [place] [facility] CLIA [id number] [address] [place] [address] [place] Creatinine [Mass/Vol] 0.80 mg/dL Normal 0.58-0.96 [facility] Comment on above: Order Comment: Speci men Type: BLOOD SPECIMEN Ordering Facility: [facility] Address: [address] [place] [address] Performed By: #### 2 4323-8 #### [facility] CLIA [id number] [address] Creatinine and Glomerular filtration rate.predicted panel (S/P/Bld) 104 mL/min/1.73m??? Normal >=60 [facility] Comment on above: Order Comment: Speci men Type: BLOOD SPECIMEN Ordering Facility: [facility] Address: [address] [place] [address] Result Comment: Beth mated Glomerular Filtration Rate [...] GFR. Performed By: #### 2 4323-8 #### [facility] [place] [facility] CLIA [id number] [address] [place] [id number] [place] [facility] Glucose [Mass/Vol] 69 mg/dL Low 74-99 [facility] Comment on above: Order Comment: Speci men Type: BLOOD SPECIMEN Ordering Facility: [facility] Address: [address] [place] [address] Result Comment: The [place] Diabetes Association (ADA) provides guidance for cutoff [...] Standards of Medical Care in Diabetes 2016, [place] [employer] Association. Diabetes Care. 2016.39(Suppl 1). Performed By: #### 2 4323-8 #### [facility] CLIA [id number] [address] [place], [place] [id number] [place] Potassium [Moles/Vol] 3.6 mmol/L Low 3.7-5.1 [facility] Comment on above: Order Comment: Mich martinez Type: BLOOD SPECIMEN Ordering Facility: [facility] Address: [address] [place] [address] Performed By: #### 2 4323-8 #### [facility] [place] [facility] CLIA [id number] [address] [place], [place] [id number] [place] Protein [Mass/Vol] 7.4 g/dL Normal 6.3-8.0 [facility] Comment on above: Order Comment: Mich martinez Type: BLOOD SPECIMEN Ordering Facility: [facility] Address: [address] [place] [address] Performed By: #### 2 4323-8 #### [facility] [place] [facility] CLIA [id number] [address] [place] [address] [place] Sodium [Moles/Vol] 139 mmol/L Normal 136-144 [facility] Comment on above: Order Comment: Mich martinez Type: BLOOD SPECIMEN Ordering Facility: [facility] Address: [address] [place] [address] Performed By: #### 2 4323-8 #### [facility] CLIA [id number] [address] [place] [address] [place] Urea nitrogen [Mass/Vol] 7 mg/dL Normal 7-21 [facility] Comment on above: Order Comment: Speci men Type: BLOOD SPECIMEN Ordering Facility: [facility] Address: [address] [place] [address] Performed By: #### 2 4323-8 #### [facility] CLIA [id number] [address] [place] [address] [place] HCG Preg Ur Qlon 07-07-2024 HCG ( test) Ql (U) Positive Abnormal Negative [facility] Comment on above: Order Comment: Speci men Type: URINE SPECIMEN Ordering Facility: [facility] Address: [address] [place] [address] Result Comment: This test is intended to aid in the early detection of . Very dilute urine samples, as indicated by a low specific gravity, may not contain patient care representative levels of hCG. This test detects [...] . Performed By: #### 2 106-3 #### [facility] CLIA [id number] [address] [place] [address] [place] Urinalysis complete panel (U )on 07-07-2024 Bacteria LM.HPF (Urine sed) [#/Area] Rare Abnormal None Seen [facility] Comment on above: Order Comment: Speci men Type: URINE SPECIMEN Ordering Facility: [facility] Address: [address] [place], [place] [address] Performed By: #### 2 4356-8 #### [facility] CLIA [id number] [address] [place] [address] [place] Bilirubin Ql (U) Negative Normal Negative [facility] Comment on above: Order Comment: Speci men Type: URINE SPECIMEN Ordering Facility: [facility] Address: [address] [place] [address] Performed By: #### 2 4356-8 #### [facility] CLIA [id number] [address] [place] [address] [facility] [place] Clarity (Unsp spec) Clear Normal Clear [facility] Comment on above: Order Comment: Speci men Type: URINE SPECIMEN Ordering Facility: [facility] Address: [address] [place] [address] Performed By: #### 2 4356-8 #### [facility] CLIA [id number] [address] [place] [address] [facility] Color (U) Yellow Normal Yellow [facility] Comment on above: Order Comment: Speci men Type: URINE SPECIMEN Ordering Facility: [facility] Address: [address] [place] [address] Performed By: #### 2 4356-8 #### [facility] CLIA [id number] [address] [place] [address] [facility] Epithelial cells LM.HPF (Urine sed) [#/Area] Few Normal [facility] Comment on above: Order Comment: Speci men Type: URINE SPECIMEN Ordering Facility: [facility] Address: [address] [place] [address] Performed By: #### 2 4356-8 #### [facility] CLIA [id number] [address] [place] [address] [facility] OF [place] Glucose Test strip (U) [Mass/Vol] Trace Abnormal Negative [facility] Comment on above: Order Comment: Speci men Type: URINE SPECIMEN Ordering Facility: [facility] Address: [address] [place] [address] Performed By: #### 2 4356-8 #### [facility] CLIA [id number] [address] [place] [address] [facility] OF [place] Hemoglobin Ql (U) Negative Normal Negative [facility] Comment on above: Order Comment: Speci men Type: URINE SPECIMEN Ordering Facility: [facility] Address: [address] [place] [address] Performed By: #### 2 4356-8 #### [facility] CLIA [id number] [address] [place] [address] [place] Ketones Ql (U) Negative Normal Negative [facility] Comment on above: Order Comment: Speci men Type: URINE SPECIMEN Ordering Facility: [facility] Address: [address] [place] [address] Performed By: #### 2 4356-8 #### [facility] CLIA [id number] [address] [place] [address] [place] Leukocyte esterase Test strip Ql (U) Negative Normal Negative [facility] Comment on above: Order Comment: Speci men Type: URINE SPECIMEN Ordering Facility: [facility] Address: [address] [place] [address] Performed By: #### 2 4356-8 #### [facility] CLIA [id number] [address] [place] [address] [place] Nitrite Ql (U) Negative Normal Negative [facility] Comment on above: Order Comment: Speci men Type: URINE SPECIMEN Ordering Facility: [facility] Address: [address] [place] [address] Performed By: #### 2 4356-8 #### [facility] CLIA [id number] [address] [place] [address] [place] pH (U) 6.5 [pH] Normal 5.0-8.0 [facility] Comment on above: Order Comment: Speci men Type: URINE SPECIMEN Ordering Facility: [facility] Address: [address] [place] [address] Performed By: #### 2 4356-8 #### [facility] CLIA [id number] [address] [place] [address] [place] Protein (U) [Mass/Vol] Negative Normal Negative [facility] Comment on above: Order Comment: Speci men Type: URINE SPECIMEN Ordering Facility: [facility] Address: [address] [place] [address] Performed By: #### 2 4356-8 #### [facility] [place] [facility] CLIA [id number] [address] [place] [address] RBC LM.HPF (Urine sed) [#/Area] 0-3 /HPF Normal 0-3 /HPF [facility] Comment on above: Order Comment: Speci men Type: URINE SPECIMEN Ordering Facility: [facility] Address: [address] [place] [address] Performed By: #### 2 4356-8 #### [facility] [place] [facility] CLIA [id number] [address] Specific gravity (U) [Rel density] 1.020 Normal 1.005-1.030 [facility] Comment on above: Order Comment: Speci men Type: URINE SPECIMEN Ordering Facility: [facility] Address: [address] [place] [address] Performed By: #### 2 4356-8 #### [facility] CLIA [id number] [address] [place] [address] Urobilinogen Ql (U) 2.0 EU/dL Abnormal 0.2-1.0 EU/dL [facility] Comment on above: Order Comment: Speci men Type: URINE SPECIMEN Ordering Facility: [facility] Address: [address] [place] [address] Performed By: #### 2 4356-8 #### [facility] [place] [facility] CLIA [id number] [address] [place] [address] [facility] WBC LM.HPF (Urine sed) [#/Area] 0-5 /HPF Normal 0-5 /HPF [facility] Comment on above: Order Comment: Speci men Type: URINE SPECIMEN Ordering Facility: [facility] Address: [address] [place] [address] Performed By: #### 2 4356-8 #### [facility] [place] [facility] CLIA [id number] [address] [place] [address] [place] CBC W Auto [...] (Bld) 0.3 % 0.0 - 2.0 % [facility] Interpretation and review of laboratory results Normal [facility] Lymphocytes (Bld) [#/Vol] 2.6 10*3/uL 1.0 - 4.3 10*3/uL [facility] Lymphocytes/100 WBC (Bld) 33.2 % 15.0 - 45.0 % [facility] MCH (RBC) [Entitic mass] 31.1 pg 26.0 - 34.0 pg [facility] MCHC (RBC) [Mass/Vol] 34.1 % 30.5 [...] (Bld) 59.1 % 38.0 - 82.0 % [facility] Nucleated RBC/100 WBC (Bld) [Ratio] 0 % [facility] Platelet mean volume (Bld) [Entitic vol] 9.9 fL 9.0 - 12.7 fL [facility] Comment on above: MPV is a calculated measurement using platelet volume ratio Platelets (Bld) [#/Vol] 255 10*3/uL 140 - 440 10*3/uL [facility] RBC (Bld) [#/Vol] 3.92 10*6/uL 3.80 - 5.2 0 10*6/uL [facility] WBC (Bld) [#/Vol] 7.7 10*3/uL 3.6 - 10.7 10*3/uL [facility] CBC WITH AUTO DIFFERENTIALon 06-12-2024 Basophils (Bld) [#/Vol] 0.0 10*3/uL Normal 0.0-0.2 [facility] Comment on above: Performed By: #### Drew [id number], [id number], LAB17 #### Fox Raiser: SCOTT WILLSON ([phone]) [facility] VICTOR MANUEL RITTMAN (SWRLAB) [address] [place] [address] [place] Basophils/100 WBC (Bld) 0.3 % Normal 0.0-2.0 [facility] Comment on above: Performed By: #### Drew [id number], [id number], LAB17 #### Fox Raiser: SCOTT WILLSON ([phone]) [facility]UEL [facility] (SWRL[facility]) [address] [place] [address] [place] Eosinophils (Bld) [#/Vol] 0.1 10*3/uL Normal 0.0-0.5 [facility] Comment on above: Performed By: #### Drew [id number], [id number], LAB17 #### Fox Raiser: SCOTT WILLSON ([phone]) [facility]CTOR MANUEL [facility] (SWRL[facility]) [address] [place] [address] [place] Eosinophils/100 WBC (Bld) 1.3 % Normal 0.0-6.0 [facility] Comment on above: Performed By: #### Drew [id number], [id number], LAB17 #### Fox Raiser: SCOTT WILLSON ([phone]) [facility] RUSH RITTMAN (SWRLAB) [address] [place] [address] Erythrocyte distribution width (RBC) [Ratio] 13.4 % Normal 11.5-15.0 [facility] Comment on above: Performed By: #### Drew [id number], [id number], LAB17 #### Fox Raiser: SCOTT WILLSON ([phone]) [facility] RUSH [facility] (SWRL[facility]) [address] [place] [address] Hematocrit (Bld) [Volume fraction] 35.8 % Normal 35.0-47.0 [facility] Comment on above: Performed By: #### Drew [id number], [id number], LAB17 #### Fox Raiser: SCOTT WILLSON ([phone]) [facility] RUSH R[facility] (SWRL[facility]) [address] [place] [address] Hemoglobin (Bld) [Mass/Vol] 12.2 g/dL Normal 11.7-16.0 [facility] Comment on above: Performed By: #### Drew [id number], [id number], LAB17 #### Fox Raiser: SCOTT WILLSON ([phone]) [facility] RUSH R[facility]TM[facility] (SWRL[facility]) [address] [place] [address] IMMATURE GRANS % 0.3 % Normal 0.0-2.0 [facility] Comment on above: Performed By: #### Drew [id number], [id number], LAB17 #### Fox Raiser: SCOTT WILLSON ([phone]) [facility] RUSH [facility] (SWRL[facility]) [address] [place] [address] IMMATURE GRANS ABSOLUTE 0.0 10*3/uL Normal <0.1 [facility] Comment on above: Performed By: #### Drew [id number], [id number], LAB17 #### Fox Raiser: SCOTT WILLSON ([phone]) SU[facility] RUSH RITTMAN (SWRLAB) [address] [place] [address] [place] Lymphocytes (Bld) [#/Vol] 2.6 10*3/uL Normal 1.0-4.3 [facility] Comment on above: Performed By: #### L [id number], [id number], LAB17 #### Fox Raiser: SCOTT WILLSON ([phone]) [facility] RUSH [facility] (SWRL[facility]) [address] [place] [address] Lymphocytes/100 WBC (Bld) 33.2 % Normal 15.0-45.0 [facility] Comment on above: Performed By: #### Drew [id number], [id number], LAB17 #### Fox Raiser: SCOTT WILLSON ([phone]) [facility] (SWRL[facility]) [address] [place] [address] MCH (RBC) [Entitic mass] 31.1 pg Normal 26.0-34.0 [facility] Comment on above: Performed By: #### Drew [id number], [id number], LAB17 #### Fox Raiser: SCOTT WILLSON ([phone]) [facility] (SWRL[facility]) [address] [place] [address] MCHC 34.1 % Normal 30.5-36.0 [facility] Comment on above: Performed By: #### Drew [id number], [id number], LAB17 #### Fox Raiser: SCOTT WILLSON ([phone]) [facility] RUSH R[facility] (SWRL[facility]) [address] [place] [address] MCV (RBC) [Entitic vol] 91.3 fL Normal 77.0-99.0 [facility] Comment on above: Performed By: #### L [id number], [id number], LAB17 #### Fox Raiser: SCOTT WILLSON ([phone]) [facility] RUSH R[facility] (SWRL[facility]) [address] [place] [address] Monocytes (Bld) [#/Vol] 0.5 10*3/uL Normal 0.0-0.9 [facility] Comment on above: Performed By: #### L [id number], [id number], LAB17 #### Fox Raiser: SCOTT WILLSON ([phone]) [facility] VICTOR MANUEL [facility]TM[facility] (SWRL[facility]) [address] [place] [address] [place] Monocytes/100 WBC (Bld) 5.8 % Normal 5.0-13.0 [facility] Comment on above: Performed By: #### L [id number], [id number], LAB17 #### Fox Raiser: SCOTT WILLSON ([phone]) [facility]UEL [facility] (SWRL[facility]) [address] [place] [address] [place] NEUTROPHILS ABSOLUTE 4.6 10*3/uL Normal 1.8-7.5 [facility] Comment on above: Performed By: #### Drew [id number], [id number], LAB17 #### Fox Raiser: SCOTT WILLSON ([phone]) [facility] RUSH R[facility] (SWRL[facility]) [address] [place] [address] [place] Neutrophils/100 WBC (Bld) 59.1 % Normal 38.0-82.0 [facility] Comment on above: Performed By: #### Drew [id number], [id number], LAB17 #### Fox Raiser: SCOTT WILLSON ([phone]) [facility] RUSH [facility] (SWRL[facility]) [address] [place] [address] [place] NRBC 0.0 /100 WBCs Normal 0.0-2.0 [facility] Comment on above: Performed By: #### L [id number], [id number], LAB17 #### Fox Raiser: SCOTT WILLSON ([phone]) [facility] WALLVICTOR MANUEL RITTMAN (SWRLAB) [address] [place] [address] Platelet mean volume (Bld) [Entitic vol] 9.9 fL Normal 9.0-12.7 [facility] Comment on above: Result Comment: MPV is a calculated measurement using platelet volume ratio Performed By: #### L [id number], [id number], LAB17 #### Fox Raiser: SCOTT WILLSON ([phone]) [facility] (SWRL[facility]) [address] [place] [address] Platelets (Bld) [#/Vol] 255 10*3/uL Normal 140-440 [facility] Comment on above: Performed By: #### Drew [id number], [id number], LAB17 #### Fox Raiser: SCOTT WILLSON ([phone]) [facility] (SWRL[facility]) [address] [place] [address] RBC (Bld) [#/Vol] 3.92 10*6/uL Normal 3.80-5.20 [facility] Comment on above: Performed By: #### Drew [id number], [id number], LAB17 #### Fox Raiser: SCOTT WILLSON ([phone]) [facility] RUSH [facility] (SWRL[facility]) [address] [place] [address] WBC (Bld) [#/Vol] 7.7 10*3/uL Normal 3.6-10.7 [facility] Comment on above: Performed By: #### Drew [id number], [id number], LAB17 #### Fox Raiser: SCOTT WILLSON ([phone]) [facility] (SWRL[facility]) [address] [place] [address] COMPREHENSIVE METABOLIC PANE Grayson 06-12-2024 Albumin [Mass/Vol] 3.7 g/dL Normal 3.5-5.0 [facility] Comment on above: Performed By: #### Drew [id number], [id number], LAB17 #### Fox Raiser: SCOTT WILLSON ([phone]) [facility]USH [facility] (SWRL[facility]) [address] [place] [address] ALP [Catalytic activity/Vol] 80 U/L Normal 40-150 [facility] Comment on above: Performed By: #### Drew [id number], [id number], LAB17 #### Fox Raiser: SCOTT WILLSON ([phone]) [facility]USH [facility] (SWRL[facility]) [address] [place] [address] ALT [Catalytic activity/Vol] 11 U/L Normal <30 [facility] Comment on above: Performed By: #### L [id number], [id number], LAB17 #### Fox Raiser: SCOTT WILLSON ([phone]) [facility] RUSH R[facility] (SWRL[facility]) [address] [place] [address] Anion gap [Moles/Vol] 7 mmol/L Normal 3-13 [facility] Comment on above: Performed By: #### L [id number], [id number], LAB17 #### Fox Raiser: SCOTT WILLSON ([phone]) [facility] RUSH R[facility] (SWRL[facility]) [address] [place] [address] AST [Catalytic activity/Vol] 16 U/L Normal <34 [facility] Comment on above: Performed By: #### Drew [id number], RKK595, LAB17 #### Fox Raiser: SCOTT WILLSON ([phone]) [facility] RUSH RITTM[facility] (SWRL[facility]) [address] [place] [address] [place] Bilirubin [Mass/Vol] 1.9 mg/dL High <1.2 [facility] Comment on above: Performed By: #### Drew [id number], [id number], LAB17 #### Fox Raiser: SCOTT WILLSON ([phone]) [facility] RUSH [facility] (SWRL[facility]) [address] [place] [address] Calcium [Mass/Vol] 8.8 mg/dL Normal 8.4-10.2 [facility] Comment on above: Performed By: #### L [id number], [id number], LAB17 #### Fox Raiser: SCOTT WILLSON ([phone]) [facility] RUSH RITTM[facility] (SWRL[facility]) [address] [place] [address] [place] Chloride [Moles/Vol] 110 mmol/L High 98-107 [facility] Comment on above: Performed By: #### L [id number], [id number], LAB17 #### Fox Raiser: SCOTT WILLSON ([phone]) [facility] RUSH R[facility] (SWRL[facility]) [address] [place] [address] CO2 [Moles/Vol] 25 mmol/L Normal 22-29 [facility] Comment on above: Performed By: #### L [id number], [id number], LAB17 #### Fox Raiser: SCOTT WILLSON ([phone]) [facility] RUSH R[facility] (SWRL[facility]) [address] [place] [address] Creatinine [Mass/Vol] 0.75 mg/dL Normal 0.57-1.11 [facility] Comment on above: Performed By: #### Drew [id number], [id number], LAB17 #### Fox Raiser: SCOTT WILLSON ([phone]) [facility] MORGANTMAN (SWRLAB) [address] [place] [address] GLOMERULAR FILTRATION RATE ML/MIN/1.73 SQ M.PREDICTED >90.0 Normal >60.0 [facility] Comment on above: Result Comment: Calc ulation based on the Chronic Kidney Disease Epidemiology Collaboration (CKD-EPI) equation refit without adjustment for race Performed By: #### L [id number], [id number], LAB17 #### Fox Raiser: SCOTT WILLSON ([phone]) [facility] MORGANTMAN (SWRL[facility]) [address] [place] [address] [place] Glucose [Mass/Vol] 91 mg/dL Normal 74-100 [facility] Comment on above: Performed By: #### L [id number], QYE886, LAB17 #### Fox Raiser: SCOTT WILLSON ([phone]) [facility] RUSH RITTM[facility] (SWRL[facility]) [address] [place] [address] [place] Potassium [Moles/Vol] 3.5 mmol/L Normal 3.5-5.1 [facility] Comment on above: Result Comment: [facility] potassium values may be up to 0.5 mmol/L lower than serum values. Performed By: #### L [id number], [id number], LAB17 #### Fox Raiser: SCOTT WILLSON ([phone]) [facility] MORGANTMAN (SWRLAB) [address] [place] [address] Protein [Mass/Vol] 6.7 g/dL Normal 6.4-8.3 [facility] Comment on above: Performed By: #### Drew [id number], [id number], [id number] #### [employer] Raiser: SCOTT WILLSON ([phone]) [facility] MORGANTMAN (SWRLAB) [address] [place] [address] Sodium [Moles/Vol] 142 mmol/L Normal 136-145 [facility] Comment on above: Performed By: #### Drew [id number], [id number], [id number] #### [employer] Raiser: SCOTT WILLSON ([phone]) [facility] MORGANTMAN (SWRLAB) [address] [place] [address] Urea nitrogen [Mass/Vol] 10 mg/dL Normal 8-21 [facility] [facility] [place] Comment on above: Performed By: #### Drew [id number], [id number], [id number] #### Fox Raiser: SCOTT WILLSON ([phone]) [facility]HABILITATIONFrancisco MORGANTMAN (SWRLAB) [address] [place] [address] Comprehensive metabolic 1998 panelon 06-12-2024 Albumin [Mass/Vol] 3.7 g/dL 3.5 - 5.0 g/dL [facility] ALP [Catalytic activity/Vol] 80 U/L 40 - 150 U/L [facility] ALT [Catalytic activity/Vol] 11 U/L NINF - 30 U/L [facility] Anion gap [Moles/Vol] 7 mmol/L 3 - 13 mmol/L [facility] AST [Catalytic activity/Vol] 16 U/L NINF - 34 U/L [facility] Bilirubin [Mass/Vol] 1.9 mg/dL High NINF - 1.2 mg/dL [facility] Calcium [Mass/Vol] 8.8 mg/dL 8.4 - 10. 2 mg/dL [facility] Chloride [Moles/Vol] 110 mmol/L High 98 - 10 7 mmol/L [facility] CO2 [Moles/Vol] 25 mmol/L 22 - 29 mmol/L [facility] Creatinine [Mass/Vol] 0.75 mg/dL 0.57 - 1.11 mg/dL [facility] GFR/1.73 sq M.predicted (S/P/Bld) [Vol rate/Area] - PINF [facility] Comment on above: Calculation based on the Chronic Kidney Disease Epidemiology Collaboration (CKD-EPI) equation refit without adjustment for race Glucose [Mass/Vol] 91 mg/dL 74 - 100 mg/dL [facility] Interpretation and review of laboratory results Abnormal [facility] Potassium [Moles/Vol] 3.5 mmol/L 3.5 - 5.1 mmol/L [facility] Comment on above: Plasma potassium lazarus ues may be up to 0.5 mmol/L lower than serum values. Protein [Mass/Vol] 6.7 g/dL 6.4 - 8.3 g/dL [facility] Sodium [Moles/Vol] 142 mmol/L 136 - 145 mmol/L [facility] Urea nitrogen [Mass/Vol] 10 mg/dL 8 - 21 mg/dL [facility] D-DIMER,QUANTITATIVEon 06-12 D-DIMER, INNOVANCE 0.26 mg/L Normal <0.50 [facility] Comment on above: Result Comment: AMIE Martins COMMENTS: [employer] D-Dimer values of <0.50 mg/L FEU can be used in combination with a pre-test probability model (e.g. Well's) to exclude pulmonary embolism (PE) disease, as well as an aid in the diagnosis of deep vein thrombosis (DVT). Performed By: #### L [id number], [id number], [id number] #### Fox Raiser: SCOTT WILLSON ([phone]) [facility]WOODSVICT[facility] MANUEL DANILO (SWLakshmiLAB) [address] [place] [address] ECG 12-LEADon 06-12-2024 ECG 12-LEAD IMPRESSION: EKG shows sinus arrhythmia, normal axis, normal ID QRS and QTC intervals. No STEMI, no SVT, no LVH. No old EKG. Electronically Signed On 06-12-2024 15:38:55 EST by Keyona Conrad Normal [facility] ED Nursing Noteon 06-12-2024 ED Nursing Note Since last night c/o chest pain with radiation down both arms, cough, shortness of breath and dizziness. 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 Normal [facility] Fibrin D-dimer FEU (PPP) [Ma ss/Vol]on 06-12-2024 Interpretation and review of laboratory results Normal [facility] D-Dimer values of <0.50 mg/L FEU can be used in combination with a pre-test probability model (e.g. Well's) to exclude pulmonary embolism (PE) disease, as well as an aid in the diagnosis of deep vein thrombosis (DVT). [facility] HCG QUALITATIVE URINEon Beta HCG ( test) Ql (U) Negative Normal Negative [facility] Comment on above: Result Comment: Plea se note: Very dilute urine specimens, as indicated by a low specific gravity, may not contain patient care representative levels of hCG. If is still suspected, a first morning urine specimen should be collected 48 hours later and tested. ORDER COMMENTS: is the most common reason for HCG in urine, although choriocarcinoma, hydatidiform mole, and certain nontrophoblastic malignancies also result in detectable urinary HCG levels. Sensitivity = 20mIU/mL. Performed By: #### L [id number], [id number], LAB17 #### Fox Raiser: SCOTT WILLSON ([phone]) [facility] DANILO (SWRLAB) [address] [place] [address] HIGH SENSITIVITY TROPONIN, S ERIAL BASELINEon 06-12-2024 TROPONIN HS SERIAL BASELINE <3 Normal <=14 [facility] Comment on above: Result Comment: In i ndividuals presenting with symptoms > 2h, a baseline troponin <= 5 ng/L suggests acute cardiac injury is unlikely and further serial testing is generally not indicated. Performed By: #### L [id number], [id number], LAB17 #### Fox Raiser: SCOTT WILLSON ([phone]) [facility] (SWRLAB) [address] [place] [address] HIGH SENSITIVITY TROPONIN, S ERIAL, SECOND TESTon 06-12-2024 2H TROPONIN HS (SERIAL 2ND TROPONIN) <3 Normal <=14 [facility] Comment on above: Result Comment: Delt a value was unable to be calculated as both baseline and serial troponin tests were below the level of quantitation. As both baseline and 2h troponin values are below the level of quantitation, acute cardiac injury is unlikely. Performed By: #### L [id number] #### Fox Raiser: SCOTT WILLSON ([phone]) [facility] (SWRLAB) [address] [place] [address] Laboratory - Chemistry and C hemistry - challengeOrdered By: Tutu Clark on 06-12-2024 Beta HCG ( test) Ql Negative Negative [facility] Comment on above: Please note: Very di lute urine specimens, as indicated by a low specific gravity, may not contain patient care representative levels of hCG. If is still suspected, a first morning urine specimen should be collected 48 hours later and tested. Beta HCG ( test) Ql (U) is the most common reason for HCG in urine, although choriocarcinoma, hydatidiform mole, and certain nontrophoblastic malignancies also result in detectable urinary HCG levels. Sensitivity = 20mIU/mL. [facility] Laboratory - Coagulationon 0 06-12-2024 Fibrin D-dimer FEU (PPP) [Mass/Vol] 0.26 mg/L NINF - 0.50 mg/L [facility] - Microbiology an d Antimicrobial susceptibilityon 06-12-2024 FLUAV RNA JOSEFA+probe Ql (Resp) Not detected Not Detected [facility] FLUBV RNA JOSEFA+probe Ql (Resp) Not detected Not Detected [facility] RSV RNA JOSEFA+probe Ql (Resp) Not detected Not Detected [facility] SARS-CoV-2 (COVID-19) RNA JOSEFA+probe Ql (Resp) Not detected Not Detected [facility] SARS-CoV-2 (COVID-19) RNA JOSEFA+probe Ql (Unsp spec) Methodology: real-time, RT-PCR The SARS-CoV-2, Flu A/B, and RSV Combo assay is intended for in vitro diagnostic use under the FDA Emergency Use Authorization (EUA). This test has not been FDA cleared or approved. In compliance with this authorization, please visit www.fda.gov/media/0 97768/download or www.fda.gov/media/ 78959/download to access the applicable information sheets. [facility] NT PRO BNPon 06-12-2024 Natriuretic peptide B (Bld) [Mass/Vol] 95 pg/mL Normal <125 [facility] Comment on above: Performed By: #### L [id number], [id number], LAB17 #### Fox Raiser: SCOTT WILLSON ([phone]) [facility] ([facility]) [address] [place] [address] Natriuretic peptide B [Mass/ Vol]on 06-12-2024 Interpretation and review of laboratory results Normal [facility] Natriuretic peptide B (Bld) [Mass/Vol] 95 pg/mL NINF - 125 pg/mL [facility] No Panel Informationon 06-12 2h Troponin HS (Serial 2nd Troponin) ng/L [facility] ng/L [facility] Comment on above: Delta value was unab le to be calculated as both baseline and serial troponin tests were below the level of quantitation. As both baseline and 2h troponin values are below the level of quantitation, acute cardiac injury is unlikely. Interpretation and review of laboratory results Normal [facility] Interpretation and review of laboratory results Normal [facility] Troponin HS Serial Baseline ng/L NINF - 14 ng/L [facility] Comment on above: In individuals prese nting with symptoms > 2h, a baseline troponin <= 5 ng/L suggests acute cardiac injury is unlikely and further serial testing is generally not indicated. [facility] P Mur[place] 21 degrees [facility] ID Interval 173 ms [facility] QRS [place] 70 degrees [facility] QRSD Interval 78 ms [facility] QT Interval 381 ms [facility] QTC Interval 397 ms [facility] T Wave [place] 31 degrees [facility] EKG shows sinus arrhythmia, normal axis, normal ID QRS and QTC intervals. No STEMI, no SVT, no LVH. No old EKG. Electronically Signed On 06-12-2024 15:38:55 EST by Keyona Conrad CV Keyona Murphy MD - 06/12/2024 IMPRESSION: EKG shows sinus arrhythmia, normal axis, normal ID QRS and QTC intervals. No STEMI, no SVT, no LVH. No old EKG. Electronically Signed On 06-12-2024 15:38:55 EST by Keyona Conrad [facility] No Panel InformationOrdered By: Tutu Clark on 06-12-2024 [facility] SARS-COV-2, FLU A/B, AND RSV COMBOon 06-12-2024 [...] compliance with this authorization, please visit www.fda.gov/media/ 81666/download or www.fda.gov/media/ 53055/download to access the applicable information sheets. Normal [facility] Comment on above: Performed By: #### L [id number] #### Fox Raiser: SCOTT WILLSON ([phone]) [facility] ([facility]) [address] [place] [address] SARS-CoV-2, Flu A/B, and RSV Comboon 06-12-2024 Interpretation and review of laboratory results Normal [facility] Vital signson 06-12-2024 Heart rate 65 /min bpm [facility] XR Chest 2 Viewson No focal consolidation or pulmonary edema. Report Dictated on Electronically Signed By: Rene Ruiz MD Electronically Signed Date/Time: 06/12/2024 4:41 PM [facility] Patient Name: GABE VIERA : [...] are normal. The osseous structures are unremarkable. [facility] Rene Ruiz MD - 06/12/2024 Patient [...] MD Electronically Signed Date/Time: 06/12/2024 4:41 PM [facility] Radiology Study observation (narrative) [facility] XR Chest 2 ViewsOrdered By: Rene Ruiz on 06-12-2024 [facility] [employer] Work Phone: CBC panel Auto (Bld)on 04-30 Erythrocyte distribution width (RBC) [Ratio] 12.5 % 11.5 - 15.0 % [facility] Hematocrit (Bld) [Volume fraction] 41.1 % 36.0 - 46.0 % [facility] Hemoglobin (Bld) [Mass/Vol] 13.5 g/dL 11.5 - 15.5 g/dL [facility] Interpretation and review of laboratory results Abnormal [facility] MCH (RBC) [Entitic mass] 30.7 pg 26.0 - 34.0 pg [facility] MCHC (RBC) [Mass/Vol] 32.8 g/dL 30.5 - 36.0 g/dL [facility] MCV (RBC) [Entitic vol] 93.4 fL 80.0 - 100.0 fL [facility] Platelet mean volume (Bld) [Entitic vol] 10.1 fL 9.0 - 12.7 fL [facility] Platelets (Bld) [#/Vol] 260 10*3/uL [facility] RBC (Bld) [#/Vol] 4.40 10*6/uL 3.90 - 5.2 0 m/uL [facility] WBC (Bld) [#/Vol] 11.96 10*3/uL [facility] Erythrocyte distribution width (RBC) [Ratio] 12.5 % Normal 11.5-15.0 [facility] Comment on above: Order Comment: Mich martinez Type: BLOOD SPECIMEN Ordering Facility: [facility] Address: [address] [place] [address] Performed By: #### 5 8410-2 #### [facility] CLIA [id number] [address] [place] [address] [place] Hematocrit (Bld) [Volume fraction] 41.1 % Normal 36.0-46.0 [facility] Comment on above: Order Comment: Mich martinez Type: BLOOD SPECIMEN Ordering Facility: [facility] Address: [address] [place] [address] Performed By: #### 5 8410-2 #### [facility] CLIA [id number] [address] [place] [address] [place] Hemoglobin (Bld) [Mass/Vol] 13.5 g/dL Normal 11.5-15.5 [facility] Comment on above: Order Comment: Mich martinez Type: BLOOD SPECIMEN Ordering Facility: [facility] Address: [address] [place] [address] Performed By: #### 5 8410-2 #### [facility] CLIA [id number] [address] [place] [address] [facility] MCH (RBC) [Entitic mass] 30.7 pg Normal 26.0-34.0 [facility] Comment on above: Order Comment: Speci men Type: BLOOD SPECIMEN Ordering Facility: [facility] Address: [address] [place] [address] Performed By: #### 5 8410-2 #### [facility] CLIA [id number] [address] [place] [address] [place] MCHC (RBC) [Mass/Vol] 32.8 g/dL Normal 30.5-36.0 [facility] Comment on above: Order Comment: Speci men Type: BLOOD SPECIMEN Ordering Facility: [facility] Address: [address] [place] [address] Performed By: #### 5 8410-2 #### [facility] CLIA [id number] [address] [place], [place] [address] [place] [address] [place] MCV (RBC) [Entitic vol] 93.4 fL Normal 80.0-100.0 [facility] Comment on above: Order Comment: Speci men Type: BLOOD SPECIMEN Ordering Facility: [facility] Address: [address] [place] [address] Performed By: #### 5 8410-2 #### [facility] CLIA [id number] [address] [place] [address] [place] Platelet mean volume (Bld) [Entitic vol] 10.1 fL Normal 9.0-12.7 [facility] Comment on above: Order Comment: Speci men Type: BLOOD SPECIMEN Ordering Facility: [facility] Address: [address] [place] [address] Performed By: #### 5 8410-2 #### [facility] CLIA [id number] [address] [place] [address] [facility] OF [place] Platelets (Bld) [#/Vol] 260 10*3/uL Normal 150-400 [facility] Comment on above: Order Comment: Speci men Type: BLOOD SPECIMEN Ordering Facility: [facility] Address: [address] [place], [place] [address] Performed By: #### 5 8410-2 #### [facility] CLIA [id number] [address] [place] [address] [facility] RBC (Bld) [#/Vol] 4.40 10*6/uL Normal 3.90-5.20 [facility] Comment on above: Order Comment: Speci men Type: BLOOD SPECIMEN Ordering Facility: [facility] Address: [address] [place] [address] Performed By: #### 5 8410-2 #### [facility] CLIA [id number] [address] [place] [address] [facility] WBC (Bld) [#/Vol] 11.96 10*3/uL High 3.70-11.00 [facility] Comment on above: Order Comment: Speci men Type: BLOOD SPECIMEN Ordering Facility: [facility] Address: [address] [place] [address] Performed By: #### 5 8410-2 #### [facility] CLIA [id number] [address] [place], [place] [id number] [facility] CNOVon 04-30-2024 CNOV Office Visit (CHARANFAMPLE) ---- GABE VIERA ([id number]) 1995 F ONOFRE Date Time Provider Department 04/30/24 9:00 AM [...] and Percepti (more content not included)... Normal [facility] Comprehensive metabolic 2000 panelon 04-30-2024 Albumin [Mass/Vol] 4.1 g/dL 3.9 - 4.9 g/dL [facility] ALP [Catalytic activity/Vol] 103 U/L 34 - 123 U/L [facility] ALT With P-5'-P [Catalytic activity/Vol] 7 U/L 7 - 38 U/L [facility] Anion gap [Moles/Vol] 9 mmol/L 8 - 15 mmol/L [facility] AST With P-5'-P [Catalytic activity/Vol] 13 U/L 13 - 35 U/L [facility] Bilirubin [Mass/Vol] 1.4 mg/dL High 0.2 - 1 .3 mg/dL [facility] Calcium [Mass/Vol] 9.5 mg/dL 8.5 - 10. 2 mg/dL [facility] Chloride [Moles/Vol] 103 mmol/L 98 - 10 7 mmol/L [facility] CO2 [Moles/Vol] 26 mmol/L 22 - 30 mmol/L [facility] Creatinine [Mass/Vol] 0.88 mg/dL 0.58 - 0.96 mg/dL [facility] GFR/1.73 sq M.predicted among non-blacks MDRD (S/P/Bld) [Vol rate/Area] 93 mL/min/{1.73_m2} - PINF [facility] Comment on above: Estimated Glomerular Filtration [...] [Mass/Vol] 94 mg/dL 74 - 99 mg/dL [facility] Comment on above: The [place] Diab[employer] s Association (ADA) provides guidance for [...] Standards of Medical Care in Diabetes 2016, [place] Diabetes Association. Diabetes Care. 2016.39(Suppl 1). Potassium [Moles/Vol] 4.0 mmol/L 3.7 - 5.1 mmol/L [facility] Protein [Mass/Vol] 7.3 g/dL 6.3 - 8.0 g/dL [facility] Sodium [Moles/Vol] 138 mmol/L 136 - 144 mmol/L [facility] Urea nitrogen [Mass/Vol] 13 mg/dL 7 - 21 mg/dL [facility] Albumin [Mass/Vol] 4.1 g/dL Normal 3.9-4.9 [facility] Comment on above: Order Comment: Speci men Type: BLOOD SPECIMEN Ordering Facility: [facility] Address: [address] [place] [address] Performed By: #### 3 016-3, 01028-8 #### [facility] CLIA [id number] [address] [place] [address] [place] ALP [Catalytic activity/Vol] 103 U/L Normal 34-123 [facility] Comment on above: Order Comment: Speci men Type: BLOOD SPECIMEN Ordering Facility: [facility] Address: [address] [place] [address] Performed By: #### 3 016-3, 21474-5 #### [facility] CLIA [id number] [address] [place] [address] [place] ALT With P-5'-P [Catalytic activity/Vol] 7 U/L Normal 7-38 [facility] Comment on above: Order Comment: Speci men Type: BLOOD SPECIMEN Ordering Facility: [facility] Address: [address] [place] [address] Performed By: #### 3 016-3, 06545-6 #### [employer] [facility] CLIA [id number] [address] [place] [address] [place] Anion gap [Moles/Vol] 9 mmol/L Normal 8-15 [facility] Comment on above: Order Comment: Speci men Type: BLOOD SPECIMEN Ordering Facility: [facility] Address: [address] [place] [address] Performed By: #### 3 016-3, 17411-8 #### [facility] CLIA [id number] [address] [place] [address] [place] AST With P-5'-P [Catalytic activity/Vol] 13 U/L Normal 13-35 [facility] Comment on above: Order Comment: Speci men Type: BLOOD SPECIMEN Ordering Facility: [facility] Address: [address] [place] [address] Performed By: #### 3 016-3, 54856-1 #### [facility] CLIA [id number] [address] [place] [address] [place] Bilirubin [Mass/Vol] 1.4 mg/dL High 0.2-1.3 [facility] Comment on above: Order Comment: Speci men Type: BLOOD SPECIMEN Ordering Facility: [facility] Address: [address] [place] [address] Performed By: #### 3 016-3, 65606-4 #### [facility] CLIA [id number] [address] [place] [address] [place] Calcium [Mass/Vol] 9.5 mg/dL Normal 8.5-10.2 [facility] Comment on above: Order Comment: Speci men Type: BLOOD SPECIMEN Ordering Facility: [facility] Address: [address] [place] [address] Performed By: #### 3 016-3, 23872-3 #### [facility] CLIA [id number] [address] [place] [address] [place] Chloride [Moles/Vol] 103 mmol/L Normal 98-107 [facility] Comment on above: Order Comment: Speci men Type: BLOOD SPECIMEN Ordering Facility: [facility] Address: [address] [place] [address] Performed By: #### 3 016-3, 11270-6 #### [facility] CLIA [id number] [address] [place] [address] [place] CO2 [Moles/Vol] 26 mmol/L Normal 22-30 [facility] Comment on above: Order Comment: Speci men Type: BLOOD SPECIMEN Ordering Facility: [facility] Address: [address] [place] [id number] Performed By: #### 3 016-3, 53424-4 #### [facility] CLIA [id number] [address] [place] [address] [place] [facility] Creatinine [Mass/Vol] 0.88 mg/dL Normal 0.58-0.96 [facility] Comment on above: Order Comment: Mich martinez Type: BLOOD SPECIMEN Ordering Facility: [facility] Address: [address] [place] [address] Performed By: #### 3 016-3, 24951-4 #### [facility] CLIA [id number] [address] [place] [address] [facility] Creatinine and Glomerular filtration rate.predicted panel (S/P/Bld) 93 mL/min/1.73m??? Normal >=60 [facility] Comment on above: Order Comment: Mich martinez Type: BLOOD SPECIMEN Ordering Facility: [facility] Address: [address] [place] [address] Result Comment: Beth mated Glomerular Filtration Rate [...] actual GFR. Performed By: #### 3 016-3, 37060-0 #### [facility] CLIA [id number] [address] [place] [address] [place] Glucose [Mass/Vol] 94 mg/dL Normal 74-99 [facility] Comment on above: Order Comment: Mich martinez Type: BLOOD SPECIMEN Ordering Facility: [facility] Address: [address] [place] [address] Result Comment: The [place] Diabetes Association (ADA) provides guidance for cutoff [...] Standards of Medical Care in Diabetes 2016, [place] Diabetes Association. Diabetes Care. 2016.39(Suppl 1). Performed By: #### 3 016-3, 81425-2 #### [facility] CLIA [id number] [address] [place] [address] [place] Potassium [Moles/Vol] 4.0 mmol/L Normal 3.7-5.1 [facility] Comment on above: Order Comment: Mich martinez Type: BLOOD SPECIMEN Ordering Facility: [facility] Address: [address] [place] [address] Performed By: #### 3 -, 47557-7 #### [facility] [facility] CLIA [id number] [address] [place] [address] [place] Protein [Mass/Vol] 7.3 g/dL Normal 6.3-8.0 [facility] Comment on above: Order Comment: Sharroni juan Type: BLOOD SPECIMEN Ordering Facility: [facility] Address: [address] [place] [address] Performed By: #### 3 -3, 29468-2 #### [facility] CLIA [id number] [address] [place] [address] [place] Sodium [Moles/Vol] 138 mmol/L Normal 136-144 [facility] Comment on above: Order Comment: Sharroni men Type: BLOOD SPECIMEN Ordering Facility: [facility] Address: [address] [place] [address] Performed By: #### 3 -3, 70195-3 #### [facility] CLIA [id number] [address] [place] [address] [place] Urea nitrogen [Mass/Vol] 13 mg/dL Normal 7-21 [facility] Comment on above: Order Comment: Speci men Type: BLOOD SPECIMEN Ordering Facility: [facility] Address: [address] [place], [place] [address] Performed By: #### 3 016-3, 33066-5 #### [facility] CLIA [id number] [address] [place] [id number] [place] ECG B/O W INTERP (MED OFFICE )on 04-30-2024 NSR Carolynn Humphrey, [facility] No Panel Informationon 04-30 Interpretation and review of laboratory results Abnormal [facility] THYROID STIMULATING HORMONEo n 04-30-2024 TSH Qn 4.210 m[IU]/L High [facility] Comment on above: If the patient [...] Gerardo et al. 2017 Guidelines of the [place] Thyroid Association for the Diagnosis and Management of Thyroid Disease during and the . Thyroid, 2017:27:3:315-389. TSH SerPl-aCncon 04-30-2024 TSH Qn 4.210 m[IU]/L High 0.270-4.200 [facility] Comment on above: Order Comment: Mich martinez Type: BLOOD SPECIMEN Ordering Facility: [facility] Address: [address] [place], [place] [address] [address] Result Comment: If t he patient is , TSH reference range varies by gestational period: First Trimester (weeks 9-12): 0.180-2.990 mIU/L Second Trimester: 0.110-3.980 mIU/L Third Trimester: 0.480-4.710 mIU/L Milo Russell, et al. A Practical Approach for the Verifications and Determination of Site- and Trimester-Specific Reference Intervals for Thyroid Function tests in . Thyroid, 2019:29:3:412-420. Inocencio E, et al. 2017 Guidelines of the [place] Thyroid Association for the Diagnosis and Management of Thyroid Disease during and the . Thyroid, 2017:27:3:315-389. Performed By: #### 3 016-3, 28544-9 #### [facility] CLIA [id number] [address] [place] [address] [address] [facility] 09-18-2023 36 [facility] sent Normal [facility] [facility] [facility] 09-16-2023 36 We have been unable to reach your patient to schedule their testing. Test Name: Physical Therapy 1st Attempt: 09/14/23 2nd Attempt: 09/16/23 Normal [facility] HbA1c (Bld)on 08-11-2023 Average glucose Estimated from glycated hemoglobin (Bld) [Mass/Vol] 123 mg/dL [facility] Comment on above: eAG: (Estimated aver age glucose) is a calculated value from HgbA1c and is patient care representative of the average blood glucose level in the last 2-3 month period. HbA1c (Bld) [Mass fraction] 5.9 % High 4.3 - 5.6 % [facility] Comment on above: [place] Diabetes As sociation guidelines indicate that patients with HgbA1c in the range 5.7-6.4% are at increased risk for development of diabetes, and intervention by lifestyle modification may be beneficial. HgbA1c greater or equal to 6.5% is considered diagnostic of diabetes. Interpretation and review of laboratory results Abnormal [facility] UA DIP, URINE (POC)on 2023 BILIRUBIN UA (POCT) Negative Negative Gato [facility] CLARITY UA (POCT) Clear [facility] COLOR UA (POCT) Yellow [facility] GLUCOSE UA (POCT) Negative Negative mg/dL [facility] Hemoglobin Ql (U) Negative Negative [facility] KETONE UA (POCT) Negative Negative mg/dL [facility] LEUKOCYTES UA (POCT) Negative Negative [facility] NITRITE UA (POCT) Negative Negative [facility] PH UA (POCT) 6.0 4.5 - 8.0 [facility] Protein Ql (U) Negative Negative mg/dL [facility] SPECIFIC GRAVITY UA (POCT) >=1.030 1.005 - 1.030 [facility] UROBILINOGEN UA (POCT) 1.0 Normal E.U./d L [facility] Location:[facility], [address] [place] [address], [address] [place] [address] POINT OF CARE [facility] CT Abdomen and Pelvis W cont rast Rosi 07-11-2023 [facility] CBC W Auto Differential pane l (Bld)on 07-10-2023 Basophils (Bld) [#/Vol] 0.03 10*3/uL <0.11 k/uL [facility] Basophils/100 WBC (Bld) 0.3 % C [facility] Differential cell count method Nom (Bld) Auto [facility] Eosinophils (Bld) [#/Vol] 0.11 10*3/uL <0.46 k/uL [facility] Eosinophils/100 WBC (Bld) 1.2 % [facility] Erythrocyte distribution width (RBC) [Ratio] 12.5 % 11.5 - 15.0 % [facility] Hematocrit (Bld) [Volume fraction] 43.1 % 36.0 - 46.0 % [facility] Hemoglobin (Bld) [Mass/Vol] 14.4 g/dL 11.5 - 15.5 g/dL [facility] Immature granulocytes (Bld) [#/Vol] <0.10 k/uL [facility] Immature granulocytes/100 WBC (Bld) 0.1 % [facility] Lymphocytes (Bld) [#/Vol] 3.12 10*3/uL 1.00 - 4.00 k/uL [facility] Lymphocytes/100 WBC (Bld) 33.8 % [facility] MCH (RBC) [Entitic mass] 30.7 pg 26.0 - 34.0 pg [facility] MCHC (RBC) [Mass/Vol] 33.4 g/dL 30.5 - 36.0 g/dL [facility] MCV (RBC) [Entitic vol] 91.9 fL 80.0 - 100.0 fL [facility] Monocytes (Bld) [#/Vol] 0.44 10*3/uL <0.87 k/uL [facility] Monocytes/100 WBC (Bld) 4.8 % C [facility] Neutrophils (Bld) [#/Vol] 5.52 10*3/uL 1.45 - 7.50 k/uL [facility] Neutrophils/100 WBC (Bld) 59.8 % [facility] Nucleated RBC (Bld) [#/Vol] [facility] Nucleated RBC/100 WBC (Bld) [Ratio] [facility] Platelet mean volume (Bld) [Entitic vol] 9.4 fL 9.0 - 12.7 fL [facility] Platelets (Bld) [#/Vol] 266 10*3/uL 150 - 400 k /uL [facility] RBC (Bld) [#/Vol] 4.69 10*6/uL 3.90 - 5.2 0 m/uL [facility] WBC (Bld) [#/Vol] 9.23 10*3/uL 3.70 - 11. 00 k/uL [facility] Comprehensive metabolic 2000 panelon 07-10-2023 Albumin [Mass/Vol] 4.3 g/dL 3.9 - 4.9 g/dL Cl [facility] ALP [Catalytic activity/Vol] 104 U/L 34 - 123 U/L [facility] ALT With P-5'-P [Catalytic activity/Vol] 14 U/L 7 - 38 U/L [facility] Anion gap [Moles/Vol] 10 mmol/L 9 - 18 mmol/L [facility] AST With P-5'-P [Catalytic activity/Vol] 14 U/L 13 - 35 U/L [facility] Bilirubin [Mass/Vol] 0.9 mg/dL 0.2 - 1 .3 mg/dL [facility] Calcium [Mass/Vol] 9.4 mg/dL 8.5 - 10. 2 mg/dL [facility] Chloride [Moles/Vol] 102 mmol/L 97 - 10 5 mmol/L [facility] CO2 [Moles/Vol] 25 mmol/L 22 - 30 mmol/L [facility] Creatinine [Mass/Vol] 0.86 mg/dL 0.58 - 0.96 mg/dL [facility] Estimated Glomerular Filtration Rate 96 mL/min/1.73m >=60 mL/min/1.73m [facility] Glucose [Mass/Vol] 103 mg/dL High 74 - 99 mg/dL [facility] Potassium [Moles/Vol] 4.2 mmol/L 3.7 - 5.1 mmol/L [facility] Protein [Mass/Vol] 7.9 g/dL 6.3 - 8.0 g/dL Cl [facility] Sodium [Moles/Vol] 137 mmol/L 136 - 144 mmol/L [facility] Urea nitrogen [Mass/Vol] 8 mg/dL 7 - 21 mg/dL [facility] LIPASE BLDon 07-10-2023 Lipase [Catalytic activity/Vol] 22 U/L 16 - 61 U/L [facility] UA DIP, URINE (POC)on 2023 BILIRUBIN UA (POCT) Negative Negative [facility] CLARITY UA (POCT) Clear [facility] COLOR UA (POCT) Yellow [facility] GLUCOSE UA (POCT) 100 mg/dL Abnormal Negative mg/dL [facility] Hemoglobin Ql (U) Negative Negative [facility] KETONE UA (POCT) Negative Negative mg/dL [facility] LEUKOCYTES UA (POCT) Negative Negative [facility] NITRITE UA (POCT) Negative Negative [facility] PH UA (POCT) 5.5 4.5 - 8.0 [facility] Protein Ql (U) Trace Abnormal Negative mg/dL [facility] SPECIFIC GRAVITY UA (POCT) >=1.030 1.005 - 1.030 [facility] UROBILINOGEN UA (POCT) 0.2 E.U./dL Normal E.U./ dL [facility] UA DIP,URINE HCG (POC)on Beta HCG ( test) Ql (U) Negative Negative [facility] Electric Plater (POCT) Internal QC OK [facility] Office Visiton 06-30-2023 Follow-up visit [id number] Gabe Viera 1995 F Date Provider Department Center 06/30/2023 [id number] VALLES [facility] OB Offi Family History Problem Relation Age of Onset Ovarian cancer Paternal Grandmother Breast cancer Paternal Great-Grandmother Colon cancer Neg Hx Uterine cancer Neg Hx Family Status - Relation Status Age at Paternal Grandfather Alive Paternal Grandmother Alive Maternal Grandmother Alive Maternal Grandfather Alive Father Alive Mother Alive Paternal Great-Grandmother Alive Neg Hx Level of Service:[id number] ID OFFICE/OUTPATIENT ESTABLISHED LOW MDM 20 MIN Reason for Visit and Comments: Follow-up [[id number]] - results Normal [facility] Progress Noteon 06-30-2023 Progress Note Gabe Viera 06/30/2023 Date Of : 1995 HPI: Gabe Viera is a 27 y.o. female The patient was seen today. She is here regarding [facility] for pelvic pain . Planning to go [...] No calf tenderness and No edema bilaterally Ulvtd reviewed with patient Assessment: Diagnosis Plan 1. Pelvic pain in female [facility] PLAN: Follow up for annual. Orders Placed This Encounter Procedures [facility] Standing Status: Future Standing Expiration Date: 06/29/2024 Referral Priority: Routine Referral Type: Therapy Referral Reason: Eval and Treat Requested Specialty: Physical Therapy Number of Visits Requested: 1 The encounter diagnosis was Pelvic pain in female. and Follow-up (results) as well as counseling on preventative health maintenance follow-up. Normal [facility] PELVIS TRANSVAGINALon PELVIS TRANSVAGINAL -- Gynecological Report (Signed Final 06/26/2023 03:32 pm) PATIENT INFO: ID #: [id number] : [birth year] (27 yrs)(F) Name: GABE VIERA Visit Date: 06/23/2023 03:29 pm PERFORMED BY: Attending: Jamir Wing MD Performed By: Rupa Nichols RDMS Referred By: MALIA VALLES MD Location: [facility] LYE BATH OPERATOR [place] Visit Type: [facility] LYE BATH OPERATOR SERVICE(S) PROVIDED: [employer]chat[employer] Transvaginal [id number] INDICATIONS: Pelvic and perineal pain R10.2 LMP: 06/13/2023 Transvaginal WEB OPERATIONS SPECIALIST TECHNIQUE/SCAN QUALITY: Technique: Transvaginal Approach COMPARISON: [facility] LYE BATH OPERATOR 11/08/2022 - Left ovarian hemorrhagic cyst 2.23 [...] 06/30/2023. *Ultrasound cannot detect all pelvic or WEB OPERATIONS SPECIALIST abnormalities and normal findings cannot guarantee the absence of a problem.* Normal [facility] US Pelvis transvaginalon The endometrium [...] 06/30/2023. *Ultrasound cannot detect all pelvic or WEB OPERATIONS SPECIALIST abnormalities and normal findings cannot guarantee the absence of a problem.* [address] [facility] Gynecological Report (Signed Final 06/26/2023 03:32 pm) PATIENT INFO: ID #: [id number] : [birth year] (27 yrs)(F) Name: GABE VIERA Visit Date: 06/23/2023 03:29 pm PERFORMED BY: Attending: Jamir Wing MD Performed By: Rupa Nichols [facility] Referred By: MALIA VALLES MD Location: [facility] LYE BATH OPERATOR [place] Visit Type: [facility] LYE BATH OPERATOR SERVICE(S) PROVIDED: Mechatronics Engineer Transvaginal [id number] INDICATIONS: Pelvic and perineal pain R10.2 LMP: 06/13/2023 Transvaginal WEB OPERATIONS SPECIALIST TECHNIQUE/SCAN QUALITY: Technique: Transvaginal Approach COMPARISON: [facility] LYE BATH OPERATOR 11/08/2022 - Left ovarian hemorrhagic cyst 2.23 [...] Electronically Signed Final Report 06/26/2023 03:32 pm [facility] EM[facility]GENC[facility]PART[facility] RADIOLOGY SYSTEM Maciej, Jamir Andrade MD - 06/26/2023 Gynecological Report (Signed Final 06/26/2023 03:32 pm) PATIENT INFO: ID #: [id number] : [birth year] (27 yrs)(F) Name: GABE VIERA Visit Date: 06/23/2023 03:29 pm PERFORMED BY: Attending: Jamir Wing MD Performed By: Rupa Nichols RDWY Referred By: MALIA VALLES MD Location: [facility] LYE BATH OPERATOR [place] Visit Type: [facility] LYE BATH OPERATOR SERVICE(S) PROVIDED: Mechatronics Engineer Transvaginal [id number] INDICATIONS: Pelvic and perineal pain R10.2 LMP: 06/13/2023 Transvaginal WEB OPERATIONS SPECIALIST TECHNIQUE/SCAN QUALITY: Technique: Transvaginal Approach COMPARISON: [facility] LYE BATH OPERATOR 11/08/2022 - Left ovarian hemorrhagic cyst 2.23 [...] 06/30/2023. *Ultrasound cannot detect all pelvic or WEB OPERATIONS SPECIALIST abnormalities and normal findings cannot guarantee the absence of a problem.* [employer] US Pelvis transvaginalOrdere d By: Jamir Wing on 06-26-2023 [employer] Work Phone: US Pelvis transvaginalon Radiology Study observation (narrative) [facility] alth Sureswab(R) Advanced Vaginit is Plus, TMA (Quest)on 06-10-2023 C. glabrata RNA JOSEFA+probe Ql (Vag fld) Not detected NOT DETECTED [facility] Comment on above: Yousuf species C. albicans, C. tropicalis, C. parapsilosis, and/or C. dubliniensis can be detected, but not differentiated, in the Yousuf spp. result. C. trachomatis rRNA JOSEFA+probe Ql (Unsp spec) Not detected NOT DETECTED [facility] Yousuf sp rRNA Probe Ql (Vag fld) Not detected NOT DETECTED [facility] Lactobacillus crispatus+gasseri+jense tanvir + Gardnerella vaginalis + Atopobium vaginae rRNA JOSEFA+probe Ql (Vag fld) Negative NEGATIVE [facility] N. gonorrhoeae rRNA JOSEFA+probe Ql (Unsp spec) Not detected NOT DETECTED [facility] Comment on above: For additional infor veronica, please refer to [email or web address] (This link is being provided for information/ educational purposes only.) T. vaginalis rRNA JOSEFA+probe Ql (Unsp spec) Not detected NOT DETECTED [facility] HCG ( test) Ql (U)o n 06-09-2023 Beta HCG ( test) Ql (U) . [facility] NEGATIVE QC Pass [facility] POSITIVE QC Pass [facility] Preg Test, Ur Negative Negative [facility] h [facility] Radiology Study observation (narrative) [facility] alth Urinalysis macro (dipstick) panel (U)on 06-09-2023 Bilirubin, UA Negative [facility] Blood, UA Negative [facility] Glucose, UA Negative [facility] Ketones, POC (mg/dL) Negative [facility] Leukocytes, UA Negative [facility] Nitrite, UA Negative [facility] pH, UA 5.5 [facility] Protein, UA Negative [facility] Spec Grav, UA 1.030 [facility] h Urobilinogen, UA 0.2 [facility] alth [facility] Radiology Study observation (narrative) [facility] alth Laboratory - Microbiology an d Antimicrobial susceptibilityon 12-06-2022 SARS-CoV-2 (COVID-19) RNA JOSEFA+probe Ql (Unsp spec) Not detected [facility] No Panel Informationon 12-06 Influenza Types A,B Rapid (Clinic) Not detected [facility] HCG ( test) Ql (U)o n 10-25-2022 Beta HCG ( test) Ql (U) . [facility] NEGATIVE QC Pass [facility] POSITIVE QC Pass [facility] [employer] Preg Test, Ur Negative Negative [facility] [employer] [facility] RAPID BACT VAGINOSIS (AK)on 08-09-2021 Bacterial sialidase Ql (Unsp spec) Negative Negative for the presence of bacterial vaginosis. [facility] TRICHOMONAS PREP/ANTIGENon 0 08-09-2021 T. vaginalis Ag IA Ql (Genital specimen) Negative Negative for Trichomonas Antigen [facility] CBC W Auto Differential pane l (Bld)on 07-12-2021 Basophils (Bld) [#/Vol] 0.03 10*3/uL <0.11 k/uL [facility] Basophils/100 WBC (Bld) 0.2 % [facility] Differential cell count method Nom (Bld) Auto [facility] Eosinophils (Bld) [#/Vol] 0.49 10*3/uL High <0.46 k/uL [facility] Eosinophils/100 WBC (Bld) 3.8 % [facility] Erythrocyte distribution width (RBC) [Ratio] 13.0 % 11.5 - 15.0 % [facility] Hematocrit (Bld) [Volume fraction] 42.3 % 36.0 - 46.0 % [facility] Hemoglobin (Bld) [Mass/Vol] 13.9 g/dL 11.5 - 15.5 g/dL [facility] Lymphocytes (Bld) [#/Vol] 4.79 10*3/uL High 1.00 - 4.00 k/uL [facility] Lymphocytes/100 WBC (Bld) 37.0 % [facility] MCH (RBC) [Entitic mass] 30.1 pg 26.0 - 34.0 pg [facility] MCHC (RBC) [Mass/Vol] 32.9 g/dL 30.5 - 36.0 g/dL [facility] MCV (RBC) [Entitic vol] 91.6 fL 80.0 - 100.0 fL [facility] Monocytes (Bld) [#/Vol] 0.77 10*3/uL <0.87 k/uL [facility] Monocytes/100 WBC (Bld) 6.0 % [facility] Neutrophils (Bld) [#/Vol] 6.86 10*3/uL 1.45 - 7.50 k/uL [facility] Neutrophils/100 WBC (Bld) 53.0 % [facility] Platelet mean volume (Bld) [Entitic vol] 10.6 fL 9.0 - 12.7 fL [facility] Platelets (Bld) [#/Vol] 280 10*3/uL 150 - 400 k /uL [facility] RBC (Bld) [#/Vol] 4.62 10*6/uL 3.90 - 5.2 0 m/uL [facility] WBC (Bld) [#/Vol] 12.94 10*3/uL High 3.70 - 11 .00 k/uL [facility] Comprehensive metabolic 2000 panelon 07-12-2021 Albumin [Mass/Vol] 4.2 g/dL 3.9 - 4.9 g/dL Cl [facility] ALP [Catalytic activity/Vol] 148 U/L High 34 - 123 U/L [facility] ALT With P-5'-P [Catalytic activity/Vol] 15 U/L 7 - 38 U/L [facility] Anion gap [Moles/Vol] 7 mmol/L Low 9 - 18 mmol/L [facility] AST With P-5'-P [Catalytic activity/Vol] 14 U/L 13 - 35 U/L [facility] Bilirubin [Mass/Vol] 0.2 mg/dL 0.2 - 1 .3 mg/dL [facility] Calcium [Mass/Vol] 9.1 mg/dL 8.5 - 10. 2 mg/dL [facility] Chloride [Moles/Vol] 105 mmol/L 97 - 10 5 mmol/L [facility] CO2 [Moles/Vol] 26 mmol/L 22 - 30 mmol/L [facility] Creatinine [Mass/Vol] 0.83 mg/dL 0.58 - 0.96 mg/dL [facility] Estimated Glomerular Filtration Rate 102 mL/min/1.73m >=60 mL/min/1.73m [facility] Glucose [Mass/Vol] 120 mg/dL High 74 - 99 mg/dL [facility] Potassium [Moles/Vol] 4.3 mmol/L 3.7 - 5.1 mmol/L [facility] Protein [Mass/Vol] 7.4 g/dL 6.3 - 8.0 g/dL [facility] Sodium [Moles/Vol] 138 mmol/L 136 - 144 mmol/L [facility] Urea nitrogen [Mass/Vol] 8 mg/dL 7 - 21 mg/dL [facility] TSH BLDon 07-12-2021 TSH Qn 4.130 m[IU]/L 0.270 - 4.200 mIU/L [facility] C GENITALon 12-21-[address] [facility] [address] [place] [id number] Name: GABE VIERA : 1995 Admitting Provider: Gender: Female Financial [phone] Number: Location: [facility]. Admit 12/18/2019 Date: Discharge 12/18/2019 Date: Microbiology [...] Print Date/ 12/23/2019 15:47 EDT Time: Normal [facility] Comment on above: Performed By: #### 1 [id number] #### [facility] [address] [place] [address] [place] Raiser: Julio Cabrera MD GP CHLAMon 12-20-2019 Genprobe Chlamydia Negative Normal [facility] Comment on above: Order Comment: Order ed on Fin# [id number] Result Comment: This Chlamydia assay is being performed via a second generation NAAT that utilizes target capture, senior marketing engineer mediated amplification and dual kenetic assay technologies. Performed By: #### 1 [id number], [id number] #### [facility] [address] [place] [address] [place] Raiser: Julio Cabrera MD GP GCon 12-20-2019 Genprobe GC Negative [facility] Comment on above: Order Comment: Order ed on Fin# [id number] Result Comment: This Gonorrhoea assay is being performed via a second generation NAAT that utilizes target capture, senior marketing engineer mediated amplification and dual kenetic assay technologies. Performed By: #### 1 [id number], [id number] #### [facility] [address] [place] [address] [place] Raiser: Julio Cabrera MD [facility] Physician Progress No brunilda 12-18-2019 [facility] Physician Progress Note Chief Complaint New pt, [...] recommendations within the defined date range Normal [facility] Cult Urineon 06-25-2019 Cult Urine Test performed at [facility] ORGANISM: *Staphylococcus saprophyticus (ID: 1) >100,000 CFU/ml Routine susceptibility testing of S. saprophyticus urine isolates is not performed because uncomplicated UTIs respond to urine concentrations of agents commonly used (e.g. nitrofurantion, TMP/SMX or a quinolone). Normal [facility] Comment on above: Performed By: #### C _URI #### [place] [address] Urinalysis Routineon 020 Appearance (U) 3+ (CLOUDY) Normal [facility] Comment on above: Performed By: #### L URIN #### [place] [address] Bilirubin Urine * Normal Negative [facility] Comment on above: Performed By: #### L URIN #### [place] [address] Color (U) RED Normal [facility] Comment on above: Performed By: #### L URIN #### [place] [address] Comment Urines See Below Normal [facility] Comment on above: Result Comment: [place] r abnormal-macroscopic not done. Performed By: #### L URIN #### [place] [address] Ep Cells Urine 2-5 Normal 0-5 [facility] Comment on above: Performed By: #### L URIN #### [place] [address] Glucose Ql (U) * Normal Negative [facility] Comment on above: Performed By: #### L URIN #### [facility] [address] [place] [address] Hemoglobin,Urine * Normal Negative [facility] Comment on above: Performed By: #### L URIN #### [facility] [address] [place] [address] Ketone Urine * Normal Negative [facility] Comment on above: Performed By: #### L URIN #### [facility] [address] [place] [address] Leukocytes Esterase * Normal Negative [facility] Comment on above: Performed By: #### L URIN #### [facility] [address] [place] [address] Nitrites Urine * Normal Negative [facility] Comment on above: Performed By: #### L URIN #### [place] [address] pH (U) * Normal 5.0-8.0 [facility] Comment on above: Performed By: #### L URIN #### [place] [address] Protein (U) [Mass/Vol] * Normal Negative [facility] Comment on above: Performed By: #### L URIN #### [facility] [address] [place] [address] RBC LM.HPF (Urine sed) [#/Area] /[HPF] Abnormal 0-3 [facility] Comment on above: Performed By: #### L URIN #### [facility] [address] [place] [address] Specific [place], Ur * Normal 1.005-1.030 [facility] Comment on above: Performed By: #### L URIN #### [place] [address] Urobilinogen,Ur * Normal 0.2-1.0 [facility] Comment on above: Performed By: #### L URIN #### [place] [address] WBC LM.HPF (Urine sed) [#/Area] 0-2 Normal 0-5 [facility] Comment on above: Performed By: #### L URIN #### [facility] [address] [place], [place] [address] Urine HCG, Qual.on 0 Beta HCG ( test) Ql (U) Negative Normal Negative [facility] Comment on above: Performed By: #### L HCG2 #### [facility] [address] [place] [id number] Chlamydia and GC PCR Panelon 11-06-2018 Chlamydia and GC PCR Panel Chlamydia trachomatis PCR --> Status: F NOT Detected Chlamydia trachomatis Nucleic Acid NOT Detected by DNA Amplification using the Youtopia System. Culture is the only recommended test in medical-legal cases such as suspected child abuse or molestation. Chlamydia trachomatis Nucleic Acid NOT Detected by DNA Amplification using the CepdiaDexusid System. Culture is the only recommended test in medical-legal cases such as suspected child abuse or molestation. Neisseria gonorrhoeae PCR --> Status: F NOT Detected Neisseria gonorrhoeae Nucleic Acid NOT Detected by DNA Amplification using the CepdiaDexusid System. Culture is the only recommended test in medical-legal cases such as suspected child abuse or molestation. Neisseria gonorrhoeae Nucleic Acid NOT Detected by DNA Amplification using the Quadro Dynamicsid System. Culture is the only recommended test in medical-legal cases such as suspected child abuse or molestation. Normal [facility] Comment on above: Order Comment: Speci men Source Comment:Cervix Performed By: #### C TNGP #### [facility] [address] [place] [address] Complete Urinalysison 2018 Appearance (U) Clear Normal [facility] Comment on above: Result Comment: Refe rence Range: Clear Performed By: #### H CGUR, CUA2 #### [facility] [address] [place] [address] Bacteria LM.HPF (Urine sed) [#/Area] Few (1-5) Normal [facility] Comment on above: Result Comment: Refe rence Range: Negative Performed By: #### H CGUR, CUA2 #### [facility] [address] [place] [address] Bilirubin,Urine 1 + mg/dL Normal [facility] Comment on above: Result Comment: Refe rence Range: Negative Performed By: #### H CGUR, CUA2 #### [facility] [address] [place] [address] Color (U) Yellow Normal [facility] Comment on above: Result Comment: Refe rence Range: Lt. Yellow Performed By: #### H CGUR, CUA2 #### [facility] [address] [place] [address] Glucose Ql (U) NEG (Normal) Normal [facility] Comment on above: Result Comment: Refe rence Range: Normal (<70) Performed By: #### H CGUR, CUA2 #### [facility] [address] [place] [address] Ketone,Urine 1+ (small) Normal [facility] Comment on above: Result Comment: Refe rence Range: Negative Performed By: #### H CGUR, CUA2 #### [facility] [address] [place] [address] Leukocytes,Urine Trace Normal [facility] Comment on above: Result Comment: Refe rence Range: Negative Performed By: #### H CGUR, CUA2 #### [facility] [address] [place] [address] Mucous Threads Moderate Normal [facility] Comment on above: Result Comment: Refe rence Range: Negative Performed By: #### H CGUR, CUA2 #### [place] [address] [place] [address] Nitrites,Urine Negative Normal [facility] Comment on above: Result Comment: Refe rence Range: Negative Performed By: #### H CGUR, CUA2 #### [facility] [address] [place] [address] Occult Blood,Urine Trace Normal [facility] Comment on above: Result Comment: Refe rence Range: Negative Performed By: #### H CGUR, CUA2 #### [facility] [address] [place] [address] pH (U) 5.0 Normal 5.0-8.0 [facility] Comment on above: Performed By: #### H CGUR, CUA2 #### [address] [address] Protein (U) [Mass/Vol] 1+ (30) Normal [facility] Comment on above: Result Comment: Refe rence Range: Negative Performed By: #### H CRISTIAN, CUA2 #### [address] [address] RBC LM.HPF (Urine sed) [#/Area] 0 - 2 Normal [facility] Comment on above: Result Comment: Refe rence Range: 0-2 Performed By: #### H CGLUCIO, CUA2 #### [address] [address] Specific [place],Urine 1.025 Normal 1.005-1.030 [facility] Comment on above: Performed By: #### H CRISTIAN, CUA2 #### [address] [address] Squamous Epithelial 11 - 25 Normal [facility] Comment on above: Result Comment: Refe rence Range: 3-5 Performed By: #### H CRISTIAN, CUA2 #### [address] [address] Urobilinogen,Urine 4.0 mg/dL Normal [facility] Comment on above: Result Comment: Refe rence Range: Normal (0-1) Performed By: #### H CRISTIAN, CUA2 #### [address] [address] VOLUME, URINE 12 ml Normal [facility] Comment on above: Performed By: #### H CRISTIAN, CUA2 #### [address] [address] WBC LM.HPF (Urine sed) [#/Area] 0 - 2 Normal [facility] Comment on above: Result Comment: Refe rence Range: 0-5 Performed By: #### H CGLUCIO, CUA2 #### [address] [address] HCG,Urine Qualon 11-05-2018 Beta HCG ( test) Ql (U) Negative Normal Negative [facility] Comment on above: Result Comment: Preg miranda is the most common reason for HCG in urine, although choriocarcinoma, hydatidiform mole, and certain nontropho- blastic malignancies also result in detectable urinary HCG levels. Sensitivity = 20mIU/mL. Performed By: #### H CGUR, CUA2 #### [email or web address] [address] [place] [address] Vaginitis Panel PCRon 2018 Vaginitis Panel PCR Bacterial Vaginosis Markers PCR --> Status: F Negative Yousuf spp. PCR --> Status: F Negative Yousuf glabrata PCR --> Status: F Negative Yousuf krusei PCR --> Status: F Negative Trichomonas vaginalis PCR --> Status: F Negative Expected Value: Negative Method: Real Time PCR by BD-MAX Expected Value: Negative Method: Real Time PCR by BD-MAX Normal [employer] Comment on above: Order Comment: Speci men Source Comment:Vaginal Use UVE Collection Kit Performed By: #### V GPCR #### [email or web address] [address] [place] [address] Chlamydia and GC PCR Panelon 08-03-2018 Chlamydia [...] as suspected child abuse or molestation. Normal [employer] Comment on above: Order Comment: Speci men Source Comment:Cervix Performed By: #### C TNGP #### [facility] [employer] [facility] [address] [place] [address] HCG,Urine Qualon 08-02-2018 Beta HCG ( test) Ql (U) Negative Normal Negative [facility] Comment on above: Result Comment: Preg miranda is the most common reason for HCG in urine, although choriocarcinoma, hydatidiform mole, and certain nontropho- blastic malignancies also result in detectable urinary HCG levels. Sensitivity = 20mIU/mL. Performed By: #### U AMAC, HCGUR, UAMIC #### [address] [address] Urinalysis,Macroon 9 Appearance (U) Clear Normal Clear [facility] Comment on above: Performed By: #### U AMAC, HCGUR, UAMIC #### [address] [address] Bilirubin,Ur Negative Normal Negative [facility] Comment on above: Performed By: #### U AMAC, HCGUR, UAMIC #### [address] [address] Color (U) Yellow Normal Lt. Yellow [facility] Comment on above: Performed By: #### U AMAC, HCGUR, UAMIC #### [address] [address] Glucose Ql (U) NEG (Normal) Normal Negative [facility] Comment on above: Performed By: #### U AMAC, HCGUR, UAMIC #### [address] [address] Ketone,Urine Negative Normal Negative [facility] Comment on above: Performed By: #### U AMAC, HCGUR, UAMIC #### [address] [address] Nitrite Ql (U) Negative Normal Negative [facility] Comment on above: Performed By: #### U AMAC, HCGUR, UAMIC #### [address] [address] Occult Blood,Ur Negative Normal Negative [facility] Comment on above: Performed By: #### U AMAC, HCGUR, UAMIC #### [address] [address] pH (U) 6.5 Normal 5.0-8.0 [facility] Comment on above: Performed By: #### U AMAC, HCGUR, UAMIC #### [address] [address] Protein (U) [Mass/Vol] Negative Normal Negative [facility] Comment on above: Performed By: #### U AMAC, HCGUR, UAMIC #### [address] [address] Specific [place],Urine 1.015 Normal 1.005-1.030 [facility] Comment on above: Performed By: #### U AMAC, HCGUR, UAMIC #### [address] [address] Urobilinogen Qn (U) Normal (0.2) Normal 0-1 [facility] Comment on above: Performed By: #### U AMAC, HCGUR, UAMIC #### [address] [address] WBC (Bld) [#/Vol] Trace Normal Negative [facility] Comment on above: Performed By: #### U AMAC, HCGUR, UAMIC #### [address] [address] Urinalysis,Microscopicon Bacteria LM.HPF (Urine sed) [#/Area] Few (1-5) Normal Negative [facility] Comment on above: Performed By: #### U AMAC, HCGUR, UAMIC #### [address] [address] Ca Oxylate Crystals Moderate (6-50) Normal Negative [facility] Comment on above: Performed By: #### U AMAC, HCGUR, UAMIC #### [address] [address] Epithelial cells LM.HPF (Urine sed) [#/Area] 6 - 10 Normal 3-5 [facility] Comment on above: Performed By: #### U AMAC, HCGUR, UAMIC #### [address] [address] Mucous Threads Few Normal Negative [facility] Comment on above: Performed By: #### U AMAC, HCGUR, UAMIC #### [address] [address] RBC LM.HPF (Urine sed) [#/Area] Negative Normal 0-2 [facility] Comment on above: Performed By: #### U AMAC, HCGUR, UAMIC #### [facility] [address] [place] [address] WBC LM.HPF (Urine sed) [#/Area] 0 - 2 Normal 0-5 [facility] Comment on above: Performed By: #### U AMAC, HCGUR, UAMIC #### [facility] [address] [place] [address] GC/CHLAMYDIA AMPLIFICATIONon 06-29-2018 GC/CHLAMYDIA AMPLIFICATION GC AMPLIFICATION: Negative CHLAMYDIA AMPLIFICATION: Negative Normal Negative [facility] Comment on above: Performed By: #### G CA #### [facility] [address] [place] [address] HIV1 HIV2 AGAB SCRNon 2018 HIV AG-AB SCREEN Non-Reactive Normal Non-Reactive [facility] Comment on above: Order Comment: HIV Information: ?[place] Rev. code 3701.243(E): This information has been [...] hiv2 agab scrn #### [facility] [address] [place] [address], HIV-1 AB Non-Reactive Normal Non-Reactive [facility] Comment on above: Order Comment: HIV Information: ?[place] Rev. code 3701.243(E): This information has been [...] hiv2 agab scrn #### [facility] [address] [place] [address], HIV-1 P24 ANTIGEN Non-Reactive Normal Non-Reactive [facility] Comment on above: Order Comment: HIV Information: ?[place] Rev. code 3701.243(E): This information has been [...] hiv2 agab scrn #### [facility] [address] [place] [address], HIV-2 AB Non-Reactive Normal Non-Reactive [facility] Comment on above: Order Comment: HIV Information: ?[place] Rev. code 3701.243(E): This information has been [...] #### h iv1 hiv2 agab scrn #### [facility] [address] [place] [address], URINALYSISon 06-29-2018 Bilirubin mass conc (U) Negative Normal Negative [facility] Comment on above: Order Comment: A negative [...] #### U AC #### [facility] [address] [place] [address], Color Nom (U) Yellow Normal Yellow [facility] Comment on above: Order Comment: A [...] 50%) Performed By: #### U AC #### [facility] [address] [place] [address], Glucose Ql (U) Negative Normal Negative [facility] Comment on above: Order Comment: A [...] 50%) Performed By: #### U AC #### [facility] [address] [place] [address], pH (U) 7.0 Normal 5.0-8.0 [facility] Comment on above: Order Comment: A [...] #### U AC #### [facility] [address] [place] [address], Protein mass conc (U) Negative Normal Negative [facility] Comment on above: Order Comment: A [...] 50%) Performed By: #### U AC #### [facility] [address] [place] [address], RBC #/vol (U) 0-2 Normal 0-2 [facility] Comment on above: Order Comment: A [...] 50%) Performed By: #### U AC #### [facility] [address] [place] [address], Specific gravity Relative Density (U) 1.014 Normal [facility] Comment on above: Order Comment: A [...] 50%) Performed By: #### U AC #### [facility] [address] [place] [address], SQUAMOUS EPITHELIAL 0-2 Normal 0-10 [facility] Comment on above: Order Comment: A [...] #### U AC #### [facility] [address] [place] [address], U APPEAR Clear Normal Clear [facility] Comment on above: Order Comment: A [...] 50%) Performed By: #### U AC #### [facility] [address] [place] [address], U BACTERIA Few Normal [facility] Comment on above: Order Comment: A [...] 50%) Performed By: #### U AC #### [facility] [address] [place] [address], U BLOOD Moderate Abnormal Negative [facility] Comment on above: Order Comment: A [...] 50%) Performed By: #### U AC #### [facility] [address] [place] [address], U KETONE Negative Normal Negative [facility] Comment on above: Order Comment: A [...] 50%) Performed By: #### U AC #### [facility] [address] [place] [address], U LEUK Negative Normal Negative [facility] Comment on above: Order Comment: A [...] 50%) Performed By: #### U AC #### [facility] [address] [place] [address], U NITRITE Negative Normal Negative [facility] Comment on above: Order Comment: A [...] #### U AC #### [facility] [address] [place] [address], U UROBILI Negative Normal 0.1 - 1.0 [facility] Comment on above: Order Comment: A [...] 50%) Performed By: #### U AC #### [facility] [address] [place] [address], WBC #/vol (U) 0-2 Normal 0-2 [facility] Comment on above: Order Comment: A [...] 50%) Performed By: #### U AC #### [facility] [address] [place] [address], URINALYSIS,AUTO-IN OFFICEon 06-29-2018 BILIRUBIN, URINE POC Negative Normal Negative [facility] Comment on above: Order Comment: TEST PERFORMED AT: [facility] [address] [place] [address] [place], [place] Performed By: #### 8 1003 #### [facility] [address] [place] [address] [place], [place] BLOOD, URINE POC Large Abnormal Negative [facility] Comment on above: Order Comment: TEST PERFORMED AT: [facility] [address] [place] [address] [place], [place] [address] Performed By: #### 8 1003 #### [facility] [address] [facility] [place], [place] CLARITY, POC Clear Normal [facility] Comment on above: Order Comment: TEST PERFORMED AT: [facility] Department [facility]OC [facility] [address] [facility] [place], [place] [address] Performed By: #### 8 1003 #### [facility] [address] [facility] [place], [place] COLOR, POC Yellow Normal [facility] Comment on above: Order Comment: TEST PERFORMED AT: Emergency Department [facility]OC Laboratory [address] [facility] [place], [place] [address] Performed By: #### 8 1003 #### [facility] [address] [facility] [place], [place] GLUCOSE, URINE POC Negative Normal Negative [facility] Comment on above: Order Comment: TEST PERFORMED AT: Emergency Department [facility]OC [facility] [address] [facility] [place], [place] [address] Performed By: #### 8 1003 #### [facility] [address] [place] [address] [place], [place] KETONES, URINE POC Negative Normal Negative [facility] Comment on above: Order Comment: TEST PERFORMED AT: [facility]OC [facility] [address] [facility] [place], [place] Performed By: #### 8 1003 #### [facility] [address] [place] [address] [place], [place] LEUKOCYTES, URINE POC Negative Normal Negative [facility] Comment on above: Order Comment: TEST PERFORMED AT: [facility] Department [facility]OC [facility] [address] [facility] [place], [place] [address] Performed By: #### 8 1003 #### [facility] [address] [facility] [place], [place] NITRITES, URINE POC Negative Normal Negative [facility] Comment on above: Order Comment: TEST PERFORMED AT: Emergency Department [facility]OC Laboratory [address] [facility] [place], [place] Performed By: #### 8 1003 #### [facility] [address] [facility] [place], [place] PH, URINE POC 7.0 Normal 5.0-8.[address] [facility] Comment on above: Order Comment: TEST PERFORMED AT: Emergency Department POC Laboratory [address] [facility] [place], [place] Performed By: #### 8 1003 #### [facility] [address] [facility] [address] [place] Protein mass conc (U) Negative Normal Negative [facility] Comment on above: Order Comment: TEST PERFORMED AT: Emergency Department POC Laboratory [address] [facility] [place], [place] Performed By: #### 8 1003 #### [facility] [address] [facility] [place], [place] SPECIFIC GRAVITY, POC 1.015 Normal 1.005 - 1.030 [facility] Comment on above: Order Comment: TEST PERFORMED AT: Emergency Department POC Laboratory [address] [facility] [place], [place] [address] Performed By: #### 8 1003 #### [facility] [address] [facility] [place], [place] UROBILINOGEN, URINE POC 0.2 Normal 0.2 - 1.0 T [facility] Comment on above: Order Comment: TEST PERFORMED AT: Emergency Department POC Laboratory [address] [facility] [place], [place] [address] Performed By: #### 8 1003 #### [facility] [address] [facility] [place], [place] WET MOUNT PREPARATIONon 06-09 WET MOUNT PREPARATION CLUE CELLS: Moderate (20-70%) WBC: 0-2 TRICHOMONAS REFLEX: None Seen YEAST: None Seen SPERM: None Seen Normal None Seen [facility] Comment on above: Performed By: #### C R WET #### [facility] [address] [place] [address] [place], [place] Vital Signs Date Time Vital Sign Value Performing Clinician Facility 01-01-2025 08:16-0400 Body mass index (BMI) [Ratio] 31.07 kg/m2 Yosvany Ramey PA-C Work Phone: [facility] 01-01-2025 08:16-0400 Body temperature 97.9 [degF] Yosvany Ramey PA-C Work Phone: [facility] 01-01-2025 08:16-040 Body weight 82.1 kg Yosvany Ramey PA-C Work Phone: [facility] 01-01-2025 08:16-0400 Diastolic blood pressure 71 mm[Hg] Yosvany Tanvir PA-C Work Phone: [facility] 01-01-2025 08:16-0400 Heart rate 84 /min Yosvany Ramey PA-C Work Phone: [facility] 01-01-2025 08:16-0400 Respiratory rate 18 /min Yosvany Ramey PA-C Work Phone: [facility] 01-01-2025 08:16-0400 SaO2% (BldA) [Mass fraction] 98 % Yosvany Ramey PA-C Work Phone: [facility] 01-01-2025 08:16-0400 Systolic blood pressure 106 mm[Hg] Yosvany Ramey PA-C Work Phone: [facility] 12-23-2024 14:16-0400 Body height 162.6 cm Mario Garcia MD Work Phone: [facility] 12-23-2024 14:16-0400 Body mass index (BMI) [Ratio] 31.07 kg/m2 Mario Garcia MD Work Phone: [facility] 12-23-2024 14:16-0400 Body temperature 98.01 [degF] Mario Garcia MD Work Phone: [facility] 12-23-2024 14:16-0400 Body weight 82.1 kg Mario Garcia MD Work Phone: [facility] 12-23-2024 14:16-0400 Diastolic blood pressure 72 mm[Hg] Mario Garcia MD Work Phone: [facility] 12-23-2024 14:16-0400 Heart rate 85 /min Mario Garcia MD Work Phone: [facility] 12-23-2024 14:16-0400 Respiratory rate 20 /min Mario Garcia MD Work Phone: [facility] 12-23-2024 14:16-0400 SaO2% (BldA) [Mass fraction] 98 % Mario Garcia MD Work Phone: [facility] 12-23-2024 14:16-0400 Systolic blood pressure 108 mm[Hg] Mario Garcia MD Work Phone: [facility] 12-04-2024 10:30-0400 Body mass index (BMI) [Ratio] 29.7 kg/m2 Jyotsna Guan MD Work Phone: [facility] 12-04-2024 10:30-0400 Body weight 78.47 kg Jyotsna Guan MD Work Phone: [facility] 12-04-2024 10:30-0400 Diastolic blood pressure 60 mm[Hg] Jyotsna Guan MD Work Phone: [facility] 12-04-2024 10:30-0400 Systolic blood pressure 120 mm[Hg] Jyotsna Guan MD Work Phone: [facility] 11-28-2024 14:23-0400 Body mass index (BMI) [Ratio] 29.59 kg/m2 Octavia Herzog MD Work Phone: [facility] 11-28-2024 14:23-0400 Body weight 78.2 kg Octavia Herzog MD Work Phone: [facility] 11-28-2024 14:23-0400 Diastolic blood pressure 78 mm[Hg] Octavia Herzog MD Work Phone: [facility] 11-28-2024 14:23-0400 Systolic blood pressure 110 mm[Hg] Octavia Herzog MD Work Phone: [facility] 10-31-2024 08:56-0400 Body mass index (BMI) [Ratio] 26.78 kg/m2 Klarissa Rain MD Work Phone: [facility] 10-31-2024 08:56-0400 Body weight 70.76 kg Klarissa Rain MD Work Phone: [facility] 10-31-2024 08:56-0400 Diastolic blood pressure 60 mm[Hg] Klarissa Rain MD Work Phone: [facility] 10-31-2024 08:56-0400 Systolic blood pressure 102 mm[Hg] Klarissa Rain MD Work Phone: [facility] 10-03-2024 10:23-0400 Body mass index (BMI) [Ratio] 25.16 kg/m2 Octavia Herzog MD Work Phone: [facility] 10-03-2024 10:23-0400 Body weight 66.5 kg Octavia Herzog MD Work Phone: [facility] 10-03-2024 10:23-0400 Diastolic blood pressure 70 mm[Hg] Octavia Herzog MD Work Phone: [facility] 10-03-2024 10:23-0400 Systolic blood pressure 100 mm[Hg] Octavia Herzog MD Work Phone: [facility] 09-11-2024 13:04-0400 Body mass index (BMI) [Ratio] 25.34 kg/m2 Sunitha Plotts MAMMOGRAPHY TECHNICIAN.CNM Work Phone: [facility] 09-11-2024 13:04-0400 Body weight 66.95 kg Sunitha Plotts MAMMOGRAPHY TECHNICIAN.CNM Work Phone: [facility] 09-11-2024 13:04-0400 Diastolic blood pressure 62 mm[Hg] Sunitha Plotts MAMMOGRAPHY TECHNICIAN.CNM Work Phone: [facility] 09-11-2024 13:04-0400 Systolic blood pressure 100 mm[Hg] Sunitha Plotts MAMMOGRAPHY TECHNICIAN.CNM Work Phone: [facility] 09-05-2024 14:33-0400 Body mass index (BMI) [Ratio] 24.72 kg/m2 Sudarshan Hong MD Work Phone: [facility] 09-05-2024 14:33-0400 Body weight 65.32 kg Sudarshan Hong MD Work Phone: [facility] 09-05-2024 14:33-0400 Diastolic blood pressure 62 mm[Hg] Sudarshan Hong MD Work Phone: [facility] 09-05-2024 14:33-0400 Systolic blood pressure 104 mm[Hg] Sudarshan Hong MD Work Phone: [facility] 08-22-2024 08:50-0400 Body mass index (BMI) [Ratio] 24.72 kg/m2 Freda Haury MAMMOGRAPHY TECHNICIAN.[employer] Work Phone: [facility] 08-22-2024 08:50-0400 Body weight 65.32 kg Freda Haury MAMMOGRAPHY TECHNICIAN.[employer] Work Phone: [facility] 08-22-2024 08:50-0400 Diastolic blood pressure 60 mm[Hg] Freda Haury MAMMOGRAPHY TECHNICIAN.[employer] Work Phone: [facility] 08-22-2024 08:50-0400 Systolic blood pressure 100 mm[Hg] Freda Haury MAMMOGRAPHY TECHNICIAN.[employer] Work Phone: [facility] 08-15-2024 14:46-0400 Body height 162.6 cm Agustín Danielle MAMMOGRAPHY TECHNICIAN.[employer] Work Phone: [facility] 08-15-2024 14:46-0400 Body mass index (BMI) [Ratio] 24.99 kg/m2 Agustín Danielle MAMMOGRAPHY TECHNICIAN.[employer] Work Phone: [facility] 08-15-2024 14:46-0400 Body temperature 98.49 [degF] Agustín Danielle MAMMOGRAPHY TECHNICIAN.[employer] Work Phone: [facility] 08-15-2024 14:46-0400 Body weight 66.04 kg Agustín Danielle MAMMOGRAPHY TECHNICIAN.[employer] Work Phone: [facility] 08-15-2024 14:46-0400 Diastolic blood pressure 62 mm[Hg] Agustín Danielle MAMMOGRAPHY TECHNICIAN.[employer] Work Phone: [facility] 08-15-2024 14:46-0400 Heart rate 76 /min Agustín Danielle MAMMOGRAPHY TECHNICIAN.[employer] Work Phone: [facility] 08-15-2024 14:46-0400 SaO2% (BldA) [Mass fraction] 98 % Agustín Blackwell MAMMOGRAPHY TECHNICIAN.[employer] Work Phone: [facility] 08-15-2024 14:46-0400 Systolic blood pressure 102 mm[Hg] Agustín Blackwell MAMMOGRAPHY TECHNICIAN.[employer] Work Phone: [facility] 07-15-2024 21:39-0400 Body temperature 97.7 [degF] Dr. Jacinto Abarca DO Work Phone: [facility] 07-15-2024 21:39-0400 Diastolic blood pressure 63 mm[Hg] Dr. Jacinto Abarca DO Work Phone: 4([phone])109-5501[address] [place] [address] 07-15-2024 21:39-0400 Heart rate 72 /min Dr. Jacinto Abarca DO Work Phone: 1(382)[phone] [place] [address] 07-15-2024 21:39-0400 Respiratory rate 15 /min Dr. Jacinto Abarca DO Work Phone: [facility] 07-15-2024 21:39-0400 SaO2% (BldA) [Mass fraction] 100 % Dr. Jacinto Abarca DO Work Phone: [facility] 07-15-2024 21:39-0400 Systolic blood pressure 100 mm[Hg] Dr. Jacinto Abarca DO Work Phone: [facility] 07-15-2024 16:36-0400 Body height 162.[address] Jacinto Abarca DO Work Phone: 2([phone])321-309995 [place] [address] 07-15-2024 16:36-0400 Body mass index (BMI) [Ratio] 25.4 kg/m2 Dr. Jacinto Abarca DO Work Phone: 0(083)129-644395 [place] [address] 07-15-2024 16:36-0400 Body weight 67.[address] Jacinto Abarca DO Work Phone: 7(081)025-864395 [place] [address] 07-10-2024 11:14-0400 Body mass index (BMI) [Ratio] 25.64 kg/m2 Jose Reese MD Work Phone: [facility] 07-10-2024 11:14-0400 Body weight 67.77 kg Jose Reese MD Work Phone: [facility] 07-10-2024 11:14-0400 Diastolic blood pressure 70 mm[Hg] Jose Reese MD Work Phone: [facility] 07-10-2024 11:14-0400 Systolic blood pressure 124 mm[Hg] Jose Reese MD Work Phone: [facility] 06-12-2024 17:33-0500 Diastolic blood pressure 56 mm[Hg] Keyona Conrad MD Work Phone: [facility] 06-12-2024 17:33-0500 Heart rate 80 /min Keyona Conrad MD Work Phone: [facility] 06-12-2024 17:33-0500 Respiratory rate 14 /min Keyona Conrad MD Work Phone: [facility] 06-12-2024 17:33-0500 SaO2% (BldA) [Mass fraction] 100 % Keyona Conrad MD Work Phone: [facility] 06-12-2024 17:33-0500 Systolic blood pressure 105 mm[Hg] Keyona Conrad MD Work Phone: [facility] 06-12-2024 14:52-0500 Body height 162.6 cm Keyona Conrad MD Work Phone: [facility] 06-12-2024 14:52-0500 Body mass index (BMI) [Ratio] 26.61 kg/m2 Keyona Conrad MD Work Phone: [facility] 06-12-2024 14:52-0500 Body weight 70.31 kg Keyona Conrad MD Work Phone: [facility] 06-12-2024 14:50-0500 Body temperature 97.81 [degF] Keyona Conrad MD Work Phone: [employer] 04-30-2024 08:39-0500 Body height 162.6 cm Carolynn Sheets DO Work Phone: [facility] 04-30-2024 08:39-0500 Body mass index (BMI) [Ratio] 27.46 kg/m2 Carolynn Sheets DO Work Phone: [facility] 04-30-2024 08:39-0500 Body temperature 97.59 [degF] Carolynn Sheets DO Work Phone: [facility] 04-30-2024 08:39-0500 Body weight 72.58 kg Carolynn Sheets DO Work Phone: [facility] 04-30-2024 08:39-0500 Diastolic blood pressure 64 mm[Hg] Carolynn Sheets DO Work Phone: [facility] 04-30-2024 08:39-0500 Heart rate 83 /min Carolynn Sheets DO Work Phone: [facility] 04-30-2024 08:39-0500 Respiratory rate 16 /min Carolynn Sheets DO Work Phone: [facility] 04-30-2024 08:39-0500 SaO2% (BldA) [Mass fraction] 93 % Carolynn Sheets DO Work Phone: [facility] 04-30-2024 08:39-0500 Systolic blood pressure 100 mm[Hg] Carolynn Sheets DO Work Phone: [facility] 08-11-2023 08:47-0400 Body height 162.6 cm Elisabet Queden MAMMOGRAPHY TECHNICIAN.[employer] Work Phone: [facility] 08-11-2023 08:47-0400 Body mass index (BMI) [Ratio] 32.08 kg/m2 Elisabet Queden MAMMOGRAPHY TECHNICIAN.[employer] Work Phone: [facility] 08-11-2023 08:47-0400 Body temperature 98.29 [degF] Elisabet Queden MAMMOGRAPHY TECHNICIAN.[employer] Work Phone: [facility] 08-11-2023 08:47-0400 Body weight 84.82 kg Elisabet Queden MAMMOGRAPHY TECHNICIAN.[employer] Work Phone: [facility] 08-11-2023 08:47-0400 Diastolic blood pressure 64 mm[Hg] Elisabet Queden MAMMOGRAPHY TECHNICIAN.[employer] Work Phone: [facility] 08-11-2023 08:47-0400 Heart rate 83 /min Elisabet Queden MAMMOGRAPHY TECHNICIAN.[employer] Work Phone: [facility] 08-11-2023 08:47-0400 Respiratory rate 18 /min Elisabet Queden MAMMOGRAPHY TECHNICIAN.[employer] Work Phone: [facility] 08-11-2023 08:47-0400 SaO2% (BldA) [Mass fraction] 97 % Elisabet Queden MAMMOGRAPHY TECHNICIAN.[employer] Work Phone: [facility] 08-11-2023 08:47-0400 Systolic blood pressure 122 mm[Hg] Elisabet Queden MAMMOGRAPHY TECHNICIAN.[employer] Work Phone: [facility] 07-10-2023 15:33-0400 Body height 162.6 cm Sylvia Trill MAMMOGRAPHY TECHNICIAN.[employer] Work Phone: [facility] 07-10-2023 15:33-0400 Body temperature 98.1 [degF] Sylvia Trill MAMMOGRAPHY TECHNICIAN.[employer]AN Work Phone: [facility] 07-10-2023 15:33-0400 Body weight 82.56 kg Sylvia Trill MAMMOGRAPHY TECHNICIAN.[employer] Work Phone: [facility] 07-10-2023 15:33-0400 Diastolic blood pressure 60 mm[Hg] Sylvia Trill MAMMOGRAPHY TECHNICIAN.[employer] Work Phone: [facility] 07-10-2023 15:33-0400 Heart rate 93 /min Sylvia Trill MAMMOGRAPHY TECHNICIAN.[employer] Work Phone: [facility] 07-10-2023 15:33-0400 Respiratory rate 18 /min Sylvia Trill MAMMOGRAPHY TECHNICIAN.[employer] Work Phone: [facility] 07-10-2023 15:33-0400 SaO2% (BldA) [Mass fraction] 97 % Sylvia Becker MAMMOGRAPHY TECHNICIAN.[employer] Work Phone: [facility] 07-10-2023 15:33-0400 Systolic blood pressure 110 mm[Hg] Sylvia Becker APRN.[employer] Work Phone: [facility] 06-30-2023 10:20-0400 Body height 162.6 cm Malia Valles MD Work Phone: [facility] 06-30-2023 10:20-0400 Body mass index (BMI) [Ratio] 32.44 kg/m2 Malia Valles MD Work Phone: [facility] 06-30-2023 10:20-0400 Body weight 85.73 kg Malia Valles MD Work Phone: [facility] 06-30-2023 10:20-0400 Diastolic blood pressure 83 mm[Hg] Malia Valles MD Work Phone: [facility] 06-30-2023 10:20-0400 Heart rate 94 /min Malia Valles MD Work Phone: [facility] 06-30-2023 10:20-0400 Systolic blood pressure 120 mm[Hg] Malia Valles MD Work Phone: [facility] 06-09-2023 09:18-0500 Body height 162.6 cm Malia Valles MD Work Phone: [facility] 06-09-2023 09:18-0500 Body mass index (BMI) [Ratio] 32.61 kg/m2 Malia Valles MD Work Phone: [facility] 06-09-2023 09:18-0500 Body weight 86.18 kg Malia Valles MD Work Phone: [facility] 06-09-2023 09:18-0500 Diastolic blood pressure 74 mm[Hg] Malia Valles MD Work Phone: [facility] 06-09-2023 09:18-0500 Heart rate 88 /min Malia Valles MD Work Phone: [facility] [place] 06-09-2023 09:18-0500 Systolic blood pressure 114 mm[Hg] Malia Valles MD Work Phone: [facility] [place] 12-06-2022 14:40-0400 Body temperature 98.4 [degF] No Primary Care Physician [facility] 12-06-2022 14:40-0400 Diastolic blood pressure 82 mm[Hg] No Primary Care Physician [facility] 12-06-2022 14:40-0400 Heart rate 100 /min No Primary Care Physician [facility] 12-06-2022 14:40-0400 Respiratory rate 16 /min No Primary Care Physician [facility] 12-06-2022 14:40-0400 SaO2% (BldA) [Mass fraction] 97 % No Primary Care Physician [facility] 12-06-2022 14:40-0400 Systolic blood pressure 112 mm[Hg] No Primary Care Physician [facility] 10-25-2022 07:47-0400 Body height 162.6 cm Malia Valles MD Work Phone: [facility] [place] 10-25-2022 07:47-0400 Body mass index (BMI) [Ratio] 32.1 kg/m2 Malia Valles MD Work Phone: [facility] 10-25-2022 07:47-0400 Body weight 84.82 kg Malia Valles MD Work Phone: [facility] 10-25-2022 07:47-0400 Diastolic blood pressure 71 mm[Hg] Malia Valles MD Work Phone: [facility] 10-25-2022 07:47-0400 Heart rate 90 /min Malia Valles MD Work Phone: [facility] 10-25-2022 07:47-0400 Systolic blood pressure 110 mm[Hg] Malia Valles MD Work Phone: [facility] 08-09-2021 09:39-0400 Body height 162.6 cm Elisabet Morgan APRN.CNP Work Phone: [facility] 08-09-2021 09:39-0400 Body temperature 97.5 [degF] Elisabet Queden MAMMOGRAPHY TECHNICIAN.[employer] Work Phone: [facility] 08-09-2021 09:39-0400 Body weight 87.09 kg Elisabet Queden MAMMOGRAPHY TECHNICIAN.[employer] Work Phone: [facility] 08-09-2021 09:39-0400 Diastolic blood pressure 70 mm[Hg] Elisabet Queden MAMMOGRAPHY TECHNICIAN.[employer]ISH[employer] Work Phone: [facility] 08-09-2021 09:39-0400 Heart rate 107 /min Elisabet Queden MAMMOGRAPHY TECHNICIAN.[employer] Work Phone: [facility] 08-09-2021 09:39-0400 SaO2% (BldA) [Mass fraction] 97 % Elisabet Queden MAMMOGRAPHY TECHNICIAN.[employer] FINISH[employer]EMAN Work Phone: [facility] 08-09-2021 09:39-0400 Systolic blood pressure 114 mm[Hg] Elisabet Queden MAMMOGRAPHY TECHNICIAN.[facility] Work Phone: [facility] 07-12-2021 08:15-0400 Body height 162.6 cm Elisabet Queden MAMMOGRAPHY TECHNICIAN.[employer]ISH[employer]AN Work Phone: [facility] 07-12-2021 08:15-0400 Body temperature 98.4 [degF] Elisabet Queden MAMMOGRAPHY TECHNICIAN.[employer] FINISH[employer]EMAN Work Phone: [facility] 07-12-2021 08:15-0400 Body weight 89.81 kg Elisabet Queden MAMMOGRAPHY TECHNICIAN.[employer]ISH[employer] Work Phone: [facility] 07-12-2021 08:15-0400 Diastolic blood pressure 74 mm[Hg] Elisabet Queden MAMMOGRAPHY TECHNICIAN.[employer]ISH[employer] Work Phone: [facility] 07-12-2021 08:15-0400 Heart rate 87 /min Elisabet Queden MAMMOGRAPHY TECHNICIAN.[employer] Work Phone: [facility] 07-12-2021 08:15-0400 SaO2% (BldA) [Mass fraction] 98 % Elisabet Morgan MAMMOGRAPHY TECHNICIAN.[employer]ISH[employer]AN Work Phone: [facility] 07-12-2021 08:15-0400 Systolic blood pressure 116 mm[Hg] Elisabet Morgan MAMMOGRAPHY TECHNICIAN.[employer] Work Phone: [facility] Encounters Encounter Date Encounter Type Care Provider Facility Start: 02-17-2025 End: 02-17-2025 ambulatory ELISABET MORGAN Facility:[facility] Start: 02-03-2025 End: 02-03-2025 ambulatory ELISABET MORGAN Facility:[facility] Start: 01-24-2025 End: 01-24-2025 Emergency department patient visit ELISABET MORGAN Facility:[facility] Start: 01-20-2025 End: 01-20-2025 ambulatory JYOTSNA GUAN Facility:[facility] Start: 01-10-2025 End: 01-10-2025 ambulatory ELISABETCHRISTOS MORGAN Facility:[facility] Start: 01-01-2025 End: 01-01-2025 Office outpatient visit 15 minutes Yosvany Ramey PA-C Work Phone: [facility] Comment on above: state, [facility] dental ([facility]) (Primary Dx); Close exposure to COVID-19 virus; Fatigue, unspecified type Start: 12-27-2024 End: 12-27-2024 ambulatory ELISABET MORGAN Facility:[facility] Start: 12-23-2024 End: 12-23-2024 Office outpatient new 30 minutes Mario Garcia MD Work Phone: [facility] Comment on above: Left arm pain (Prima ry Dx) Start: 12-04-2024 End: 12-04-2024 Patient encounter procedure Jyotsna Guan MD Work Phone: [facility]/Gy[facility]cology Comment on above: Encounter for superv ision of high risk in second trimester, antepartum (HCC) (Primary Dx); Decreased movements in second trimester, single or unspecified fetus (HCC); 25 weeks gestation of (HCC) Start: 12-04-2024 End: 12-04-2024 ambulatory Sunitha Aguilar MAMMOGRAPHY TECHNICIAN.CNM Work Phone: [facility] Comment on above: Baby movements Start: 11-28-2024 End: 11-28-2024 Patient encounter procedure Octavia Herzog MD Work Phone: [facility] Comment on above: Screening for diabet es mellitus (Primary Dx); 24 weeks gestation of (HCC); Encounter for supervision of high risk in second trimester, antepartum (HCC); Pain with urination; Vaginal discharge Start: 11-28-2024 End: 11-28-2024 ambulatory [facility] Facility:[facility] Start: 10-31-2024 End: 10-31-2024 Patient encounter procedure [employer] [facility] Comment on above: Encounter for superv ision of high risk in first trimester, antepartum (HCC) Encounter for superv ision of high risk in second trimester, antepartum (HCC) (Primary Dx); 20 weeks gestation of (HCC) Start: 10-31-2024 End: 10-31-2024 ambulatory [facility] Facility:[facility] Start: 10-03-2024 End: 10-15-2024 Telephone encounter Octavia Herzog MD Work Phone: [facility] Comment on above: Records Start: 10-03-2024 End: 10-03-2024 Patient encounter procedure Octavia Herzog MD Work Phone: [facility] Comment on above: Encounter for superv ision of high risk in second trimester, antepartum (HCC) (Primary Dx); 16 weeks gestation of ([facility]) Start: 10-03-2024 End: 10-03-2024 ambulatory [facility] Facility:[facility] Start: 09-18-2024 End: 11-18-2024 Follow-up encounter Sunitha Aguilar APRN.CNM Work Phone: [facility] Start: 09-11-2024 End: 09-11-2024 ambulatory [facility] Facility:[facility] Start: 09-11-2024 End: 09-11-2024 Patient encounter procedure [employer] [facility] Comment on above: Encounter for antena osuth screening for malformation using ultrasound (HCC) (Primary Dx); Encounter for (NT) nuchal translucency scan (HCC); 13 weeks gestation of (HCC) 13 weeks gestation o f (HCC) (Primary Dx); Encounter for supervision of high risk in first trimester, antepartum (HCC) Start: 09-11-2024 End: 09-11-2024 ambulatory ELISABET MORGAN Facility:[facility] Start: 09-09-2024 End: 11-09-2024 Follow-up encounter Marco East MD Work Phone: [facility] Start: 09-05-2024 End: 09-05-2024 ambulatory SUDARSHAN HONG Facility:[facility] Start: 09-05-2024 End: 09-05-2024 Patient encounter [...] 09-03-2024 Emergency department patient visit ELISABET MORGAN Facility:[facility] Start: 09-03-2024 End: 09-03-2024 ambulatory Elisabet Morgan MAMMOGRAPHY TECHNICIAN.[employer]ISH[employer] Work Phone: [facility] Start: 09-03-2024 End: 09-03-2024 Follow-up encounter Elisabet Morgan APRN.[employer]ISH[employer]EM[employer] Work Phone: [facility] Comment on above: ED Follow-up ([facility] 08/29/2024) Start: 08-29-2024 End: 08-30-2024 Emergency department patient visit Carlos Bliss Facility:[facility] Start: 08-23-2024 End: 10-23-2024 Follow-up encounter Freda Santillan APRN.CNP Work Phone: [facility]/Gy[facility]cology Start: 08-22-2024 End: 08-22-2024 Patient encounter procedure Freda Santillan APRN.[employer] Work Phone: [facility] Comment on above: Cramping affecting p regnancy, antepartum (HCC) (Primary Dx); Vaginal discharge; Vaginal spotting; 10 weeks gestation of ([facility]); Use of nicotine during ([facility]); Nausea and vomiting during ([facility]) Start: 08-22-2024 End: 08-22-2024 ambulatory [facility] Facility:[facility] Start: 08-21-2024 End: 08-22-2024 Telephone encounter Freda Santillan APRN.[employer] Work Phone: [facility] Comment on above: FMLA Paperwork Early OB Spotting Start: 08-18-2024 End: 08-19-2024 Follow-up encounter Agustín Blackwell APRN.CNP Work Phone: [facility] Comment on above: Results Start: 08-15-2024 End: 08-15-2024 Patient encounter procedure Agustín Blackwell APRN.[employer] Work Phone: [facility] Comment on above: Non-recurrent acute suppurative otitis media of left ear without spontaneous rupture of tympanic membrane (Primary Dx); Sore throat; First trimester (HCC) Start: 08-15-2024 End: 08-15-2024 ambulatory [facility] Facility:[facility] Start: 08-06-2024 End: 08-07-2024 ambulatory [facility] Facility:[facility] Start: 08-06-2024 End: 08-06-2024 Telephone encounter Tiana Carpenter MD Work Phone: [facility] Start: 08-02-2024 End: 10-02-2024 Follow-up encounter Freda Santillan APRN.[employer]ISH[employer] Work Phone: OB/Gynecology Start: 08-01-2024 End: 08-01-2024 ambulatory ELISABET MORGAN Facility:[facility] Start: 07-15-2024 End: 07-15-2024 Emergency department patient visit Dr. Jacinto Abarca DO Work Phone: -Emergency Department Work Phone: Start: 07-15-2024 End: 07-17-2024 Telephone encounter Brooklyn Villalpando APRN.CNM Work Phone: [facility]cology Comment on above: Bleeding With Pregna ncy Start: 07-12-2024 End: 09-11-2024 Follow-up encounter Freda Santillan APRN.[employer] Work Phone: [facility]/Gy[facility]cology Start: 07-10-2024 End: 07-10-2024 ambulatory ELISABET MORGAN Facility:[facility] Start: 07-10-2024 End: 07-10-2024 Patient encounter procedure Jose Reese MD Work Phone: OB/Gynecology Comment on above: 4 weeks gestation of (HCC) (Primary Dx) Start: 07-07-2024 End: 07-08-2024 Emergency department patient visit ELISABET MORGAN Facility:[facility] Start: 06-17-2024 End: 06-17-2024 ambulatory Elisabetchristos Morgan MAMMOGRAPHY TECHNICIAN.[employer] Work Phone: [facility] Start: 06-17-2024 End: 06-17-2024 Follow-up encounter Elisabet Francisco Eddie MAMMOGRAPHY TECHNICIAN.[employer] Work Phone: [facility] Comment on above: ED Follow-up ([facility] ED 06/12/2024) Start: 06-12-2024 End: 06-12-2024 Emergency department patient visit Keyona Conrad MD Work Phone: [facility] Comment on above: Pleuritic chest pain (Primary Dx); Acute cough Start: 04-30-2024 End: 04-30-2024 Patient encounter procedure Carolynn Humphrey DO Work Phone: [facility] Comment on above: Lightheadedness (Radha jeffry Dx); Screening for thyroid disorder; Vaginal irritation Start: 04-30-2024 End: 04-30-2024 ambulatory [facility] Francisco MORGNA Facility:[facility] Start: 02-28-2024 End: 02-28-2024 Emergency department patient visit ELISABET MORGAN Facility:[facility] Start: 08-11-2023 Telephone encounter Elisabet Morgan MAMMOGRAPHY TECHNICIAN.[employer] Work Phone: [facility] Comment on above: Results Start: 08-11-2023 End: 08-11-2023 Patient encounter procedure Elisabet Grijalvasamy MAMMOGRAPHY TECHNICIAN.[employer] Work Phone: [facility] Comment on above: Right lower quadrant abdominal pain (Primary Dx); Prediabetes; Glucose found in urine on examination; Proteinuria, unspecified type; Itching in the vaginal area Start: 08-10-2023 Telephone encounter Elisabet A Eddie BARR.DRYWALL FINISHING FOREMAN Work Phone: [facility] Comment on above: Lab Orders Start: 07-14-2023 Telephone encounter Elisabet Singh Eddie MAMMOGRAPHY TECHNICIAN.[employer]WALL FINISHING FOREMAN Work Phone: [facility] Comment on above: Results Start: 07-11-2023 End: 07-11-2023 Subsequent hospital visit by physician [facility] Work Phone: [facility] Comment on above: Right lower quadrant abdominal pain [R10.31] Start: 07-10-2023 End: 07-10-2023 Patient encounter procedure Sylvia Becker APRN.[employer] FINISHING FOREMAN Work Phone: [facility] Comment on above: Right lateral abdomi nal pain (Primary Dx); Right lower quadrant abdominal pain; Rectal bleeding; Dyspareunia in female Start: 07-10-2023 Telephone encounter Sylvia Becker APRN.[employer] FINISHING [employer]EM[employer] Work Phone: [facility] Comment on above: Results (Labs, UA) Start: 06-30-2023 End: 06-30-2023 Office outpatient visit 15 minutes Malia Valles MD Work Phone: [facility] Comment on above: Pelvic pain in femal e (Primary Dx) Start: 06-30-2023 End: 06-30-2023 ambulatory MALIA VALLES [facility] Start: 06-23-2023 End: 06-23-2023 ambulatory JOSELYNWESLEY LOVELACE [facility] Start: 06-09-2023 End: 06-09-2023 Office outpatient visit 15 minutes Malia Valles MD Work Phone: [facility] Comment on above: Pelvic pain in femal e (Primary Dx); Vaginal discharge Start: 12-06-2022 End: 12-06-2022 ambulatory No Primary Care Physician [facility] Work Phone: Start: 12-06-2022 End: 12-06-2022 Patient encounter procedure No Primary Care Physician [facility] Work Phone: Start: 12-02-2022 Telephone encounter Malia kwon MD Work Phone: [facility] Comment on above: myrisk Start: 11-15-2022 End: 11-15-2022 Office outpatient visit 10 minutes Malia Valles MD Work Phone: [facility] Comment on above: Pelvic pain in femal e (Primary Dx); Cyst of left ovary; Family history of ovarian cancer Start: 11-04-2022 ambulatory Jeffry Balbuena [facility] Comment on above: ed outreach (Ed outr each/) Start: 10-25-2022 End: 10-25-2022 Office outpatient new 30 minutes Malia Valles MD Work Phone: [facility] Comment on above: Pelvic pain in femal e (Primary Dx); Vaginal discharge Start: 08-16-2021 Telephone encounter Elisabet Morgan APRN.[employer] FINISHING FOREMAN Work Phone: [facility] Comment on above: Results Start: 08-11-2021 Telephone encounter Elisabet A Queden MAMMOGRAPHY TECHNICIAN.[employer]WALL FINISHING FOREMAN Work Phone: [facility] Comment on above: Lab Orders Start: 08-09-2021 End: 08-09-2021 Patient encounter procedure Elisabet Singh Eddie MAMMOGRAPHY TECHNICIAN.[employer] FINISHING FOREMAN Work Phone: [facility] Comment on above: Well woman exam with routine gynecological exam (Primary Dx); Screening for cervical cancer; Vaginal discharge; Bacterial vaginosis; Leukocytosis, unspecified type Start: 07-14-2021 Telephone encounter Elisabet Francisco Eddie MAMMOGRAPHY TECHNICIAN.[employer] FINISHING FOREMAN Work Phone: [facility] Comment on above: Results Start: 07-12-2021 ambulatory Elisabet Francisco Nahomi en MAMMOGRAPHY TECHNICIAN.[employer] FINISHING FOREMAN Work Phone: [facility] Comment on above: Diabetes test Start: 07-12-2021 Telephone encounter Elisabet Morgan MAMMOGRAPHY TECHNICIAN.[employer] FINISHING FOREMAN Work Phone: [facility] Comment on above: Rx Refills Start: 07-12-2021 End: 07-12-2021 Patient encounter procedure Elisabet Francisco Eddie MAMMOGRAPHY TECHNICIAN.[employer] FINISHING FOREMAN Work Phone: [facility] Comment on above: Well adult exam ([facility] jeffry Dx); Obesity, Class I, BMI 30-34.9; Bacterial vaginosis; Exposure to hepatitis C; Special screening examination for viral disease; Screening for HIV (human immunodeficiency virus); Screening for STD (sexually transmitted disease) Start: 07-12-2021 End: 07-12-2021 Patient encounter status Elisabet A Eddie MAMMOGRAPHY TECHNICIAN.[employer]WALL FINISHING FOREMAN Work Phone: [facility] Start: 06-29-2018 End: 06-29-2018 Emergency department patient visit UNKNOWN PROVIDER Facility:[facility] Procedures Date Procedure Procedure Detail Performing Clinician Start: 01-01-2025 Iadna respiratry pro be & rev trnscr 3-5 targets Gema Carmona PA-C Work Phone: Start: 12-27-2024 Antibody screen ELISABET MORGAN Comment on above: Order Comment: Speci men Type: BLOOD SPECIMEN Ordering Facility: [facility] Address: [address] [place] [address] Performed By: #### 5 [id number], [id number], [id number] #### [facility] CLIA [id number] [address] [place] [address] Start: 11-28-2024 Urnls dip stick/tabl et rgnt auto w/o microscopy Octavia Herzog MD Work Phone: Start: 10-31-2024 Us preg uterus after 1st trimest 04/10 gestation Freda Santillan APRN.[employer] FINISHING FOREMAN Work Phone: Start: 09-11-2024 Antibody screen ELISABET EDDIE Comment on above: Order Comment: Speci men Type: BLOOD SPECIMEN Ordering Facility: [facility] Address: [address] [place] [address] Performed By: #### 5 [id number], [id number], [id number] #### [facility] CLIA [id number] [address] [place] [address] [place] Start: 09-11-2024 Us preg uterus after 1st trimest 04/10 gestation Freda Santillan APRN.[employer] FINISHING [employer]EM[employer] Work Phone: Start: 09-05-2024 Urnls dip stick/tabl et rgnt auto w/o microscopy Marco East MD Work Phone: Start: 08-01-2024 Microscopic observat ion [Identifier] in Cervix by Cyto stain Mario Garcia MD Work Phone: Start: 07-15-2024 Transvaginal obstetr ic ultrasonography Dr. Jacinto Abarca DO Work Phone: Start: 06-12-2024 Assay of troponin quantitative Keyona Conrad MD Work Phone: Start: 06-12-2024 Radiologic [...] et rgnt auto w/o microscopy Elisabet Morgan MAMMOGRAPHY TECHNICIAN.[facility] Work Phone: Start: 07-11-2023 Ct abdomen & pelvis w/contrast material Sylvia Becker MAMMOGRAPHY TECHNICIAN.[employer] FINISHING FOREMAN Work Phone: Start: 07-10-2023 UA DIP,URINE HCG (POC) Sylvia Becker MAMMOGRAPHY TECHNICIAN.[employer] FINISHING FOREMAN Work Phone: Start: 07-10-2023 Urnls dip stick/tabl et rgnt auto w/o microscopy Sylvia Becker MAMMOGRAPHY TECHNICIAN.[employer] FINISHING FOREMAN Work Phone: Start: 06-09-2023 End: 06-09-2023 Urnls dip stick/tablet rgnt non-auto w/o micrscp Malia Valles MD Work Phone: Start: 06-09-2023 SURESWAB(R) ADVANCED VAGINITIS PLUS, TMA (QUEST) Malia Valles MD Work Phone: Start: 12-06-2022 Plain chest X-ray No Pr imary Care Physician Start: 10-25-2022 Urine test visual color cmprsn meths Malia Valles MD Work Phone: Start: 08-09-2021 Iaadiadoo trichomona s vaginalis Elisabet Morgan MAMMOGRAPHY TECHNICIAN.[employer] FINISHING FOREMAN Work Phone: Start: 08-09-2021 Adult depression scr eening assessment Elisabet Morgan MAMMOGRAPHY TECHNICIAN.[employer] FINISHING FOREMAN Work Phone: Start: 08-09-2021 Microscopic observat ion [Identifier] in Cervix by Cyto stain Keyona Conrad MD Work Phone: Start: 07-12-2021 Adult depression scr eening assessment Elisabet Morgan MAMMOGRAPHY TECHNICIAN.[employer] FINISHING FOREMAN Work Phone: Start: 06-29-2018 Antibody hiv-1&hiv-2 single [...] for Adults (1 - 1-dose 75+ series) [facility] Start: 2057 RSV Immunization age d 60 or older (1 - 1-dose 60+ series) RSV Immunization aged 60 or older (1 - 1-dose 60+ series) [facility] Start: 10-21-2047 Zoster Vaccines (1 of 2) Zoster Vacc david (1 of 2) [facility] Start: 08-02-2027 Screening for malign ant neoplasm of cervix [facility] Start: 01-18-2025 RSV Vaccine (1 - Ris k 1-dose series) RSV Vaccine (1 - Risk 1-dose series) [facility] Start: 12-29-2024 End: 03-30-2025 ANEMIA REFLEX PANEL ANEMIA REFLEX PANEL Lab Routine 24 weeks gestation of (HCC) Encounter for supervision of high risk in second trimester, antepartum (HCC) Expected: 12/29/2024 (Approximate), Expires: 03/30/2025 [facility] Comment on above: Expected: 12/29/2024 (Approximate), Expires: 03/30/2025 Start: 12-29-2024 End: 11-28-2025 GESTATIONAL GLUCOSE SCREEN, 1-HOUR, 50 GRAM, NON-FASTING GESTATIONAL GLUCOSE SCREEN, 1-HOUR, 50 GRAM, NON-FASTING Lab Routine Screening for diabetes mellitus Expected: 12/29/2024 (Approximate), Expires: 11/28/2025 [facility] Work Phone: Comment on above: Expected: 12/29/2024 (Approximate), Expires: 11/28/2025 Start: 12-29-2024 End: 11-28-2025 SYPHILIS TREPONEMAL W/REFLEX SYPHILIS TREPONEMAL W/REFLEX Lab Routine 24 weeks gestation of (HCC) Encounter for supervision of high risk in second trimester, antepartum (HCC) Expected: 12/29/2024 (Approximate), Expires: 11/28/2025 [facility] Comment on above: Expected: 12/29/2024 (Approximate), Expires: 11/28/2025 Start: 12-29-2024 End: 03-30-2025 TYPE + SCREEN TYPE + SCREEN Blood Bank Routine 24 weeks gestation of (HCC) Encounter for supervision of high risk in second trimester, antepartum (HCC) Expected: 12/29/2024 (Approximate), Expires: 03/30/2025 [facility] Comment on above: Expected: 12/29/2024 (Approximate), Expires: 03/30/2025 Start: 12-27-2024 End: 12-27-2024 Patient encounter procedure 12/27/2024 1:40 PM EDT Routine Office Visit OB/Gynecology [address] [place] [id number] Klarissa Rain MD [address] [place] [address] OB OB/Gynecology Comment on above: OB Start: 12-27-2024 End: 12-27-2024 ambulatory 12/27/2024 1:30 PM EDT Results Only [facility] [address] [place] [address] Glucose lab [facility] Comment on above: Glucose lab Start: 12-09-2024 COVID-19 Vaccine ( season) COVID-19 Vaccine ( season) [facility] Start: 12-09-2024 Influenza vaccination C [facility] [place] [facility] Start: 11-28-2024 End: 11-28-2024 Patient encounter procedure 11/28/2024 2:30 PM EDT Routine Office Visit OB/Gynecology [address] [place], [place] [address] Octavia Herzog MD [address] [place] [address] OB OB/Gynecology Comment on above: OB Start: 10-31-2024 End: 10-31-2024 Patient encounter procedure [facility] Comment on above: Anatomy Scan OB Routine Start: 2024 HPV Vaccine (1 - 3-d ose SCDM series) HPV Vaccine (1 - 3-dose SCDM series) [facility] Start: 2024 HPV Vaccines (1 - 3- dose standard series) HPV Vaccines (1 - 3-dose standard series) [facility] Start: 10-03-2024 End: 10-03-2024 Patient encounter procedure 10/03/2024 10:10 AM EDT Routine Office Visit OB/Gynecology [address] [place], [place] [phone] Octavia Herzog MD [address] [facility] [place], [place] [id number] OB Routine OB/Gynecology Comment on above: OB Routine Start: 09-11-2024 End: 12-11-2024 Chromosome 21 trisomy [Presence] in Blood or Tissue by Cytogenetics [facility] Work Phone: Comment on above: Expected: 09/11/2024 [...] Visit OB/Gynecology [address] [place] [address] Marco East MD [address] [place] [address] 1st OB - LMP 06/08/24 OB/Gynecology Comment on above: 1st OB - LMP 06/08/24 Start: 08-22-2024 End: 08-22-2024 Patient encounter procedure 08/22/2024 8:45 AM EDT Routine Office Visit OB/Gynecology [address] [place] [address] Freda Santillan, MAMMOGRAPHY TECHNICIAN.DRYWALL FINISHING FOREMAN [address] [place] [address] Early OB - spotting, cramping - see phone note OB/Gynecology Comment on above: Early OB - spotting, cramping - see phone note Start: 08-09-2024 PAP TESTING PAP TESTING [facility] Start: 08-09-2024 Screening for malign ant neoplasm of cervix [facility] Start: 08-01-2024 End: 08-01-2024 Patient encounter procedure 08/01/2024 1:45 PM EDT Initial Office Visit OB/Gynecology [address] [place] [address] Freda Santillan APRN.[employer]YWALL FINISHING FOREMAN [address] [place] [address] 1st OB - LMP 06/08/24 OB/Gynecology Comment on above: 1st OB - LMP 06/08/24 Start: 07-25-2024 End: 07-25-2024 Patient encounter procedure 07/25/2024 10:40 AM EDT Office Visit OB/Gynecology [address] [place] [address] Marco East MD [address] [place] [address] Early OB bleeding f/u OB/Gynecology Comment on above: Early OB bleeding f/ u Start: 07-25-2024 End: 07-25-2024 ambulatory 07/25/2024 10:00 AM EDT Procedure OB/Gynecology [address] [place] [address] [employer], [employer] [address] [place] [address] Bleeding in early OB/Gynecology Comment on above: Bleeding in early pr egnancy Start: 07-15-2024 [facility] Start: 07-15-2024 [facility] Start: 07-15-2024 End: 10-14-2024 Choriogonadotropin.beta subunit [Units/volume] in Serum or Plasma HCG QUANTITATIVE Lab Routine Pelvic pain in (HCC) Bleeding in early (HCC) Expected: 07/15/2024, Expires: 10/14/2024 [facility] Comment on above: Expected: 07/15/2024 , Expires: 10/14/2024 Start: 07-15-2024 End: 07-15-2025 US Pelvis PELVIC US [facility] Anc Imaging Routine Pelvic pain in (HCC) Expected: 07/15/2024, Expires: 07/15/2025 [facility] Work Phone: Comment on above: Expected: 07/15/2024 , Expires: 07/15/2025 Start: 05-28-2024 End: 05-28-2024 Patient encounter procedure 05/28/2024 9:20 AM EST Office Visit [facility] [address] [place], [place] [id number] Elisabet Morgan, MAMMOGRAPHY TECHNICIAN.[facility] [address] [place] [address] 4 WK F/U Lightheadedness [facility] Comment on above: 4 WK F/U Lightheaded ness Start: 12-10-2023 Covid-19 Vaccine ( season) Covid-19 Vaccine ( season) [facility] Start: 12-10-2023 Influenza vaccination C [facility] [place] [facility] Start: 08-11-2023 End: 08-11-2023 Patient encounter procedure 08/11/2023 8:40 AM EDT Office Visit [facility] [address] [place] [address] Elisabet Morgan, MAMMOGRAPHY TECHNICIAN.[employer] FINISHING [employer]EM[employer] [address], [place] [id number] 4-6 WK F/U Abdominal Pain [facility] Comment on above: 4-6 WK F/U Abdominal Pain Start: 06-30-2023 End: 06-30-2023 Patient encounter procedure 06/30/2023 10:00 AM EDT Office Visit [facility] [address] [place] [phone] Malia aVlles MD [address] [place] [address] [facility] Start: 04-10-2023 Behavioral Health Screening Behavioral Health Screening [facility] Start: 04-10-2023 Depression Assessment Depression Ass essment [facility] Start: 01-13-2023 End: 01-13-2023 Patient encounter procedure 01/13/2023 8:30 AM EDT Office Visit [facility] [address] [place] [phone] Malia Valles MD [address] [place] [address] [facility] Start: 12-09-2022 COVID-19 Vaccine ( season) COVID-19 Vaccine () [facility] Start: 12-09-2022 Influenza vaccination S [facility] Start: 12-02-2022 End: 12-02-2022 Patient encounter procedure 12/02/2022 9:30 AM EDT Office Visit [facility] [address] [place] [address] [facility] Start: 11-15-2022 End: 11-15-2022 Patient encounter procedure 11/15/2022 8:30 AM EDT Office Visit [facility] [address] [place] [address] Malia Valles MD [address] [place], [place] [phone] [facility] Start: 11-08-2022 End: 11-08-2022 Professional / ancillary services management 11/08/2022 8:00 AM EDT Ancillary Procedure [facility] [address] [place] [address] [facility] Start: 10-25-2022 End: 10-26-2023 US Pelvis transvaginal US pelvis transvaginal Imaging Routine Pelvic pain in female Expected: 10/25/2022, Expires: 10/26/2023 [facility] Work Phone: Comment on above: Expected: 10/25/2022 , Expires: 10/26/2023 Start: 08-09-2022 Adult depression screening assessment DEPRESSION SCREENING [facility] Start: 07-12-2022 Adult depression screening assessment DEPRESSION SCREENING [facility] Start: 07-12-2022 CHLAMYDIA SCREENING (18-24) CHLAMYDIA SCREENING (18-24) [facility] Start: 07-12-2022 COVID-19 VACCINE (#1) COVID-19 VACCI NE (#1) [facility] Comment on above: Postponed from 10/20 (Declined at this time) Start: 07-12-2022 COVID-19 VACCINE (1) COVID-19 VACCIN E (1) [facility] Comment on above: Postponed from 10/20 (Declined at this time) Start: 07-12-2022 GC (GONORRHEA) SCREE ABHI (18-24) GC (GONORRHEA) SCREENING (18-24) [facility] Start: 04-10-2022 DEPRESSION ASSESSMENT DEPRESSION ASS ESSMENT [facility] Start: 12-09-2021 Influenza vaccination INFLUENZA (Sea son Ended) [facility] Start: 08-09-2021 End: 10-09-2021 CBC W Auto Differential panel - Blood CBC + DIFF Lab Routine Leukocytosis, unspecified type Expected: 08/09/2021, Expires: 10/09/2021 [facility] Work Phone: Comment on above: Expected: 08/09/2021 , Expires: 10/09/2021 Start: 07-12-2021 End: 09-11-2021 Hemoglobin A1c/Hemoglobin.total in Blood [facility] Work Phone: Comment on above: Expected: 07/12/2021 , Expires: 09/11/2021 Start: 07-12-2021 End: 09-11-2021 Hepatitis C virus Ab [Presence] in Serum [facility] Work Phone: Comment on above: Expected: 07/12/2021 , Expires: 09/11/2021 Start: 07-12-2021 End: 09-11-2021 HIV 1+2 Ab [Presence] in Serum or Plasma by Immunoassay [facility] Work Phone: Comment on above: Expected: 07/12/2021 , Expires: 09/11/2021 Start: 11-15-2020 PAP TESTING PAP TESTING [facility] Start: 04-15-2020 CHLAMYDIA SCREENING (18-24) CHLAMYDIA SCREENING (18-24) [facility] Start: 04-15-2020 GC (GONORRHEA) SCREE ABHI (18-24) GC (GONORRHEA) SCREENING (18-24) [facility] Start: 10-24-2019 DTaP/Tdap/Td Vaccine s (7 - Td or Tdap) DTaP/Tdap/Td Vaccines (7 - Td or Tdap) [facility] Start: 10-24-2019 Urine microalbumin profile [facility] Start: 2018 Screening for malign ant neoplasm of cervix [facility] Start: 2016 Pneumococcal Vaccine : Pediatrics (0 to 5 Years) and At-Risk Patients (6 to 49 Years) (1 of 2 - PCV) Pneumococcal Vaccine: Pediatrics (0 to 5 Years) and At-Risk Patients (6 to 49 Years) (1 of 2 - PCV) [facility] Start: 10-21-2015 Anxiety Screening Anxiety Screening [facility] Start: 10-21-2015 Depression Screening Depression Scre ening [facility] Start: 10-21-2015 HEPATITIS C SCREENING HEPATITIS C [facility] Start: 10-21-2015 Hepatitis C screening Hepatitis C [facility] Start: 10-21-2015 HIV SCREENING HIV SCREENING [facility] Start: 2013 MENINGOCOCCAL B: Con corporate development officer based on risk (1 of 2 - Patient Seeks Protection) MENINGOCOCCAL B: Consider based on risk (1 of 2 - Patient Seeks Protection) [facility] Start: 2012 HPV Vaccine (1 - 3-d ose series) HPV Vaccine (1 - 3-dose series) [facility] Start: 2012 HPV Vaccines (1 - 3- dose series) HPV Vaccines (1 - 3-dose series) [facility] Start: 10-21-2011 PEDS TO ADULT TRANSI TION ANNUAL ASSESSMENT PEDS TO ADULT TRANSITION ANNUAL ASSESSMENT [facility] Start: 2009 Depression Screening Depression Scre ening [facility] Start: 2009 PEDS TO ADULT TRANSI TION INITIAL DISCUSSION PEDS TO ADULT TRANSITION INITIAL DISCUSSION [facility] Start: 2008 HPV VACCINE (1 - 2-d ose series) HPV VACCINE (1 - 2-dose series) [facility] Start: 2008 HPV Vaccines (1 - 2- dose series) HPV Vaccines (1 - 2-dose series) [facility] Start: 10-21-2007 MENINGOCOCCAL B: Con corporate development officer based on risk (1 of 2 - Risk Bexsero 2-dose series) MENINGOCOCCAL B: Consider based on risk (1 of 2 - Risk Bexsero 2-dose series) [facility] Start: 2006 HPV VACCINE (1 - 2-d ose series) HPV VACCINE (1 - 2-dose series) [facility] Start: 10-21-2003 PNEUMOCOCCAL (1 - PCV) PNEUMOCOCCAL (1 - PCV) [facility] Start: 10-21-2003 Pneumococcal Vaccine : Pediatrics (0 to 5 Years) and At-Risk Patients (6 to 64 Years) (1 - PCV) Pneumococcal Vaccine: Pediatrics (0 to 5 Years) and At-Risk Patients (6 to 64 Years) (1 - PCV) [facility] Start: 10-21-2003 Pneumococcal Vaccine : Pediatrics (0 to 5 Years) and At-Risk Patients (6 to 64 Years) (1 of 2 - PCV) Pneumococcal Vaccine: Pediatrics (0 to 5 Years) and At-Risk Patients (6 to 64 Years) (1 of 2 - PCV) [facility] Start: 12-16-2002 Varicella vaccination Varicell a Vaccines (2 of 2 - 2-dose childhood series) [facility] Start: 04-22-1998 COVID-19 Vaccine (#1) COVID-19 Vacci ne (#1) [facility] Start: 1997 HIV screening HIV Screening [facility] Start: 1997 Lipid panel Lipid Panel [facility] Start: 1997 Yearly Adult Physical Yearly Adult P [facility] Bacteria identified in Urine by Culture BACTERIAL CULTURE, URINE Microbiology Routine Cramping affecting , antepartum (HCC) Vaginal spotting 12 weeks gestation of ([facility]) Encounter for supervision of high risk in first trimester, antepartum ([facility]) 09/05/2024 2:55 PM EDT [facility] Work Phone: BACTERIAL VAGINOSIS NAAT BACTERI AL VAGINOSIS NAAT Lab Routine Vaginal discharge 08/22/2024 9:08 AM EDT [facility] Work Phone: BACTERIAL VAGINOSIS NAAT BACTERI AL VAGINOSIS NAAT Lab Routine Vaginal discharge 11/28/2024 3:19 PM EDT [facility] YOUSUF/TRICHOMONAS NAAT YOUSUF /TRICHOMONAS NAAT Lab Routine Vaginal discharge 08/22/2024 9:08 AM EDT [facility] YOUSUF/TRICHOMONAS NAAT YOUSUF /TRICHOMONAS NAAT Lab Routine Vaginal discharge 11/28/2024 3:19 PM EDT [facility] Chlamydia trachomatis+Neisseria gonorrhoeae DNA [Presence] in Urine by JOSEFA with probe detection GC/CHLAMYDIA AMPLIF, URINE Microbiology Routine Screening for STD (sexually transmitted disease) 07/12/2021 9:47 AM EDT [facility] Work Phone: COVID & INFLUENZA A/ B & RSV PCR, ROUTINE COVID & INFLUENZA A/B & RSV PCR, ROUTINE Microbiology Routine Sore throat 08/15/2024 3:23 PM EDT [facility] Work Phone: FUNGAL SMEAR FUNGAL SMEAR Microbiology Routine Vaginal discharge Bacterial vaginosis 08/09/2021 9:45 AM EDT [facility] Work Phone: PAP FLUID CERVICAL SCREENING PAP FLUID CERVICAL SCREENING Lab Routine Screening for cervical cancer Ordered: 08/09/2021 [facility] Work Phone: Comment on above: Ordered: 08/09/2021 Patient Education What Is Care? [facility] Work Phone: Patient referral [facility] Work Phone: SURESWAB(R) ADVANCED VAGINITIS PLUS, TMA ([facility]) Sureswab(R) Advanced Vaginitis Plus, TMA ([facility]) Lab Routine Pelvic pain in female Vaginal discharge Ordered: 10/25/2022 [facility] [facility] Comment on above: Ordered: 10/25/2022 T VAGINALIS AMPLIFICATION T VAGI NALIS AMPLIFICATION Lab Routine Screening for STD (sexually transmitted disease) 07/12/2021 9:47 AM EDT [facility] Work Phone: UA DIP B/O UA DIP B/O Lab R outine Proteinuria, unspecified type Glucose found in urine on examination Ordered: 08/11/2023 [facility] Work Phone: Comment on above: Ordered: 08/11/2023 UA DIP, URINE (POC) UA DIP, URIN E (POC) Lab Routine Right lower quadrant abdominal pain Dyspareunia in female Ordered: 07/10/2023 [facility] Work Phone: Comment on above: Ordered: 07/10/2023 Urine test visual color cmprsn meths HCG QUAL UR B/O Lab Routine Right lower quadrant abdominal pain Dyspareunia in female Ordered: 07/10/2023 [facility] Work Phone: Comment on above: Ordered: 07/10/2023 [facility] Immunizations Immunization Date Immunization Notes Care Provider Hanane faust 01-29-2016 influenza, seasonal, injectable Elisabet Queden MAMMOGRAPHY TECHNICIAN.DRYWALL FINISHING FOREMAN Work Phone: [facility] 01-29-2016 influenza virus vacc ine, unspecified formulation Malia Valles MD Work Phone: [facility] [place] 04-21-2015 tuberculin skin test ; purified protein derivative solution, intradermal Carolynn Sheets DO Work Phone: [facility] 04-07-2015 tuberculin skin test ; purified protein derivative solution, intradermal Carolynn Sheets DO Work Phone: [facility] 12-30-2014 influenza, injectabl e, quadrivalent, contains preservative Elisabet Queden MAMMOGRAPHY TECHNICIAN.DRYWALL FINISHING FOREMAN Work Phone: [facility] 12-30-2014 meningococcal polysaccharide (groups A, C, Y and W-135) diphtheria toxoid conjugate vaccine (MCV4P) Elisabet Queden MAMMOGRAPHY TECHNICIAN.DRYWALL FINISHING FOREMAN Work Phone: [facility] 10-23-2009 meningococcal polysaccharide (groups A, C, Y and W-135) diphtheria toxoid conjugate vaccine (MCV4P) Elisabet Queden MAMMOGRAPHY TECHNICIAN.DRYWALL FINISHING FOREMAN Work Phone: [facility] 10-23-2009 tetanus toxoid, redu garland diphtheria toxoid, and acellular pertussis vaccine, adsorbed Elisabet Queden MAMMOGRAPHY TECHNICIAN.DRYWALL FINISHING FOREMAN Work Phone: [facility] 11-18-2002 diphtheria, tetanus toxoids and acellular pertussis vaccine, 5 pertussis antigens Elisabet Queden MAMMOGRAPHY TECHNICIAN.DRYWALL FINISHING FOREMAN Work Phone: [facility] 11-18-2002 measles, mumps and rubella virus vaccine Elisabet Queden MAMMOGRAPHY TECHNICIAN.DRYWALL FINISHING FOREMAN Work Phone: [facility] 11-18-2002 poliovirus vaccine, inactivated Elisabet Queden MAMMOGRAPHY TECHNICIAN.DRYWALL FINISHING FOREMAN Work Phone: [facility] 04-06-1999 diphtheria, tetanus toxoids and acellular pertussis vaccine, 5 pertussis antigens Elisabet Queden MAMMOGRAPHY TECHNICIAN.DRYWALL FINISHING FOREMAN Work Phone: [facility] 04-06-1999 haemophilus influenz ae type b vaccine, HbOC conjugate Elisabet Queden MAMMOGRAPHY TECHNICIAN.DRYWALL FINISHING FOREMAN Work Phone: [facility] 04-06-1999 measles, mumps and rubella virus vaccine Elisabet Queden MAMMOGRAPHY TECHNICIAN.DRYWALL FINISHING FOREMAN Work Phone: [facility] 04-06-1999 varicella virus vaccine Brit tny Queden MAMMOGRAPHY TECHNICIAN.DRYWALL FINISHING FOREMAN Work Phone: [facility] 12-24-1998 haemophilus influenz ae type b vaccine, HbOC conjugate Elisabet Queden MAMMOGRAPHY TECHNICIAN.DRYWALL FINISHING FOREMAN Work Phone: [facility] 09-28-1998 hepatitis B vaccine, pediatric or pediatric/adolescent dosage Elisabet Queden MAMMOGRAPHY TECHNICIAN.DRYWALL FINISHING FOREMAN Work Phone: [facility] 09-28-1998 poliovirus vaccine, inactivated Elisabet Queden MAMMOGRAPHY TECHNICIAN.DRYWALL FINISHING FOREMAN Work Phone: [facility] 05-14-1998 diphtheria, tetanus toxoids and acellular pertussis vaccine, 5 pertussis antigens Elisabet Queden MAMMOGRAPHY TECHNICIAN.DRYWALL FINISHING FOREMAN Work Phone: [facility] 05-14-1998 haemophilus influenz ae type b vaccine, HbOC conjugate Elisabet Queden MAMMOGRAPHY TECHNICIAN.DRYWALL FINISHING FOREMAN Work Phone: [facility] 03-05-1998 diphtheria, tetanus toxoids and acellular pertussis vaccine, 5 pertussis antigens Elisabet Queden MAMMOGRAPHY TECHNICIAN.DRYWALL FINISHING FOREMAN Work Phone: [facility] 03-05-1998 haemophilus influenz ae type b vaccine, HbOC conjugate Elisabet Queden MAMMOGRAPHY TECHNICIAN.DRYWALL FINISHING FOREMAN Work Phone: [facility] 03-04-1998 poliovirus vaccine, inactivated Elisabet Queden MAMMOGRAPHY TECHNICIAN.DRYWALL FINISHING FOREMAN Work Phone: [facility] 1997 diphtheria, tetanus toxoids and acellular pertussis vaccine, 5 pertussis antigens Elisabet Queden MAMMOGRAPHY TECHNICIAN.DRYWALL FINISHING FOREMAN Work Phone: [facility] 1997 hepatitis B vaccine, pediatric or pediatric/adolescent dosage Elisabet Queden MAMMOGRAPHY TECHNICIAN.DRYWALL FINISHING FOREMAN Work Phone: [facility] 1997 poliovirus vaccine, inactivated Elisabet Queden MAMMOGRAPHY TECHNICIAN.DRYWALL FINISHING FOREMAN Work Phone: [facility] 1997 hepatitis B vaccine, pediatric or pediatric/adolescent dosage Elisabet Queden MAMMOGRAPHY TECHNICIAN.DRYWALL FINISHING FOREMAN Work Phone: [facility] Payers Date Payer Category Payer Medicaid [employer] [id number] 2024 Medicaid (Managed Care) [facility] [id number] 2024 Unknown [id number] 2024 Self-pay [id number] 2022 Commercial Managed C are - HMO MMO LOCAL [address] [facility] [id number] 2022 Private Health Insurance [id number] 2022 Unknown [id number] 2019 Unknown [employer] BLUE CARD PPO OOS [id number] 2019-Present [phone] [address] [place] [address] PPO [id number] 2019 Unknown [id number] 2019 Unknown [id number] 2018 Blue Cross Blue Shield [id number] 1997 Unknown [id number] Unknown SELF INS [facility] DMITRY DAVIDSON [id number] Unknown [id number] Unknown [id number] Social History Date Type Detail Facility Start: 06-25-2019 End: 07-15-2024 Tobacco smoking status WVIS Smokes tobacco daily [facility] History of tobacco use Cigarette Smoker C [facility] Start: 06-25-2019 End: 12-23-2024 Cigarettes smoked current (pack per day) - Reported 1 [facility] Start: 06-25-2019 End: 08-01-2024 Tobacco use and exposure Smokeless tobacco non-user [facility] Start: 07-12-2021 End: 11-28-2024 Alcohol intake Current non-drinker of alcohol (finding) [facility] Start: 1995 Sex Assigned At Not on file [facility] Start: 07-02-2021 End: 12-02-2022 Exposure to SARS-CoV-2 (event) Not sure [facility] Start: 10-25-2022 End: 06-12-2024 Alcohol intake Current drinker of alcohol (finding) [facility] Start: 10-25-2022 End: 12-23-2024 Humiliation, Afraid, Rape, and Kick questionnaire [HARK] [facility] Within the last year , have you been afraid of your partner or ex-partner? No [facility] Start: 03-11-2012 End: 12-23-2024 Frequency of Alcohol Consumption Not on file [facility] How often do you hav e 6 or more drinks on 1 occasion? Never [facility] How hard is it for y ou to pay for the very basics like food, housing, medical care, and heating Not very hard [facility] Do you feel stress - tense, restless, nervous, or anxious, or unable to sleep at night because your mind is troubled all the time - these days [OSQ] Not at all [facility] (I/We) worried wheth er (my/our) food would run out before (I/we) got money to buy more. Never true [facility] Start: 12-06-2022 Tobacco smoking status WVIS Unknown if ever smoked [facility] Start: 1995 Sex Assigned At Female [facility] Start: 03-30-2023 End: 09-15-2025 Tobacco smoking status NHIS Ex-smoker [facility] History of tobacco use Current smoker [facility] Start: 11-08-2021 End: 07-15-2024 Sex Female (finding) [facility] Start: 06-22-2024 [facility] Start: 07-31-2024 Gender identity Identifies as female gender (finding) [facility] Start: 07-31-2024 Sexual orientation Heterosexual (finding) [facility] Start: 12-23-2024 Tobacco use and exposure User of smokeless tobacco [facility] Work Phone: Start: 12-23-2024 End: 01-01-2025 Alcoholic beverage intake Ex-drinker (finding) [facility] Work Phone: Goals Date Patient Goal Desired Activity /State Personal health goal Functional Status Date Assessment Result Facility 01-01-2025 Functional status 106/ 025 8:16 AM EDT Brooklyn Pool MA [facility] Work Phone: 01-01-2025 Vital signs 84 01/01/2025 8: 16 AM EDT Brooklyn Pool MA [facility] Work Phone: 12-23-2024 Patient Health [facility] ionnaire 2 item (PHQ-2) [Reported] [facility] Work Phone: 07-21-2014 Are you deaf, or do you have serious difficulty hearing No 07/21/2014 3:47 PM EDT Senait Johns LPN No [facility] 07-21-2014 Are you blind, or do you have serious difficulty seeing, even when wearing glasses No 07/21/2014 3:47 PM EDT Senait Johns LPN No [facility] 07-21-2014 Do you have serious difficulty walking or climbing stairs No 07/21/2014 3:47 PM EDT Senait Johns LPN No [facility] 07-21-2014 Do you have difficul ty dressing or bathing No 07/21/2014 3:47 PM EDT Senait Johns LPN No [facility] 07-21-2014 Because of a physica l, mental, or emotional condition, do you have difficulty doing errands alone such as visiting a physician's office or shopping No 07/21/2014 3:47 PM EDT Senait Johns LPN No [facility] Mental Status Date Assessment Result Facility 07-21-2014 Because of a physica l, mental, or emotional condition, do you have serious difficulty concentrating, remembering, or making decisions No 07/21/2014 3:47 PM EDT Senait Johns LPN No [facility] Clinical Notes 07-12-2021 to 01-24-2025 Yosvany Ramey PA-C - 01/01/2025 8:20 AM EDTPatient Lilliam Garcia MD - 12/23/2024 2:10 PM EDTPatient Jyotsna Cardenas MD - 12/04/2024 10:54 AM EDT Note Date & Type Note Facility 01-24-2025 Note HNO ID: [id number] Author: FREDA MENDOZA DO Service: Obstetrics Author [...] Dept Phone 02/03/2025 9:40 AM JYOTSNA SINGER [phone] Precautions: preE s/s, DFM, PROM, PTL New or adjusted home medications: diflucan 150mg once Other recommendations/instructions: none Freda Mendoza DO 7:57 PM [facility] 01-24-2025 Note HNO ID: [id number] Author: ARNOLDO HEREDIA MD Service: Obstetrics Author [...] around 1130. 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 The patient or authorized patient care representative has agreed to proceed with the [...] movement today, la (more content not included)... [facility] 01-24-2025 Note HNO ID: [id number] Author: ARNOLDO HEREDIA MD Service: Obstetrics Author [...] DATE: January 24, 2025 TIME: 6:38 PM [facility] 01-01-2025 History of Presen t illness Narrative [...] history on file. documented in this encounter [facility] Work Phone: 01-01-2025 Instructions Yosvany Ramey PA-C - 01/01/2025 8:20 AM EDT Use ZYRTEC and FLONASE as needed for congestion and ear symptoms. Follow-up here for any significant worsening or new symptoms, or at the ER if severe symptoms outside of business hours. documented in this encounter [facility] Work Phone: 12-27-2024 Note HNO ID: [id number] Author: PERFECTO SANCHES LPN Service: ? Author [...] severely ill: Yes Patient denies history of Guillain-Gwinner Syndrome (a severe paralytic illness): Yes Tdap [...] is O-. Gabe Hubbard is Rhophylac Negative [facility] 95461-258-13, Lot [id number] Exp 2026 Rhophylac injection was given without incident. Provider Dr. Klarissa Rain was present in office at time of injection. Gabe Hubbard was given her Rhophylac pocket card. Patient denied having Rhophylac injection for current at hospital or another facility. Perfecto Sanches LPN [facility] 12-23-2024 History of Presen t illness Narrative [...] supportive care measures. Discussed ER precautions. 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 Will provide a work note. Orders [...] history on file. documented in this encounter [facility] Work Phone: 12-23-2024 Instructions Mario Garcia MD - 12/23/2024 2:10 PM EDT ER if your symptoms worsen (ex: worsening arm pain, chest pain, worsening shortness of breath) documented in this encounter [facility] Work Phone: 12-04-2024 Note HNO ID: [id number] Author: JYOTSNA SINGER MD Service: ? Author [...] I and Reactive SIGNATURE: Jyotsna Dorsey MD [facility] 12-04-2024 History of Presen t illness Narrative [...] Jyotsna Dorsey MD documented in this encounter [facility] 12-04-2024 Note HNO ID: [id number] Author: JYOTSNA SINGER MD Service: ? Author [...] (HCC) RTO as scheduled Jyotsna Dorsey MD [facility] 12-04-2024 Instructions Maty Victor MA - 12/04/2024 10:26 AM EDT SEQUENTIAL SCREENINGS The [facility] offers sequential screenings for women who [...] It will require an appointment with our pv design and installation technician. This is not an ultrasound performed [...] the above symptoms, contact our office at [phone] and ask to speak with a nurse. After hours, you can call doctors registry at [phone] OR call [facility] at [phone] and ask to have the doctor epic beacon analyst paged. If you consider this an emergency, dial or go to your nearest emergency department. NEED HELP? Are you dealing with a violent or abusive relationship? Are you a victim of rape or sexual assult? Call [facility] ([place]) 24 hour Crisis Hotline: 887.638.7593 or 957-037-0474. MANUAL Your Guide to a Healthy manual is now on-line. Visit [email or web address] Stacy to download your free copy documented in this encounter [facility] 12-04-2024 Miscellaneous Notes Patient scheduled Ob patient is 25w4d documented in this encounter [facility] 12-04-2024 Telephone encounter Note Patient scheduled [facility] 12-04-2024 Telephone encounter Note Ob patient is 25w4d [facility] 11-28-2024 Note Addended by: OCTAVIA HERZOG on: 11/28/2024 03:16 PM Modules accepted: Orders [facility] 11-28-2024 Miscellaneous Notes Addended by: OCTAVIA HERZOG on: 11/28/2024 03:16 PM Modules accepted: Orders Addended by: KARLY PARDO on: 11/28/2024 03:01 PM Modules accepted: Orders documented in this encounter [facility] 11-28-2024 Note Addended by: KARLY APRDO on: 11/28/2024 03:01 PM Modules accepted: Orders [facility] 11-28-2024 Note HNO ID: [id number] Author: OCTAVIA HERZOG MD Service: ? Author [...] - RTO 4 wks Octavia Herzog DO [facility] 11-28-2024 History of Presen t illness Narrative [...] Octavia Herzog DO documented in this encounter [facility] 11-28-2024 Instructions Karly Pardo MA - 11/28/2024 2:21 PM EDT SEQUENTIAL SCREENINGS The [facility] offers sequential screenings for women who [...] It will require an appointment with our pv design and installation technician. This is not an ultrasound performed [...] the above symptoms, contact our office at [phone] and ask to speak with a nurse. After hours, you can call doctors registry at [phone] OR call [facility] at [phone] and ask to have the doctor epic beacon analyst paged. If you consider this an emergency, dial 9-9- or go to your nearest emergency department. NEED HELP? Are you dealing with a violent or abusive relationship? Are you a victim of rape or sexual assult? Call [facility] ([facility] 24 hour Crisis Hotline: 413.371.9546 or 202-665-6844. MANUAL Your Guide to a Healthy manual is now on-line. Visit [email or web address] Stacy to download your free copy documented in this encounter [facility] 10-31-2024 Progress note Formatting of t his note might be different from the original. S: Gaeb Hubbard is a 29 year [...] to decrease use. 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 ASSESSMENT/PLAN: 1. Encounter for supervision of high risk in second trimester, antepartum (HCC) - ICD9: V23.9, ICD10: O09.92 (primary diagnosis) 2. 20 weeks gestation of (HCC) - ICD9: V22.2, ICD10: Z3A.20 Klarissa Rain MD [facility] 10-31-2024 Miscellaneous Notes S: Gabe Hubbard is a 29 year [...] to decrease use. 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 ASSESSMENT/PLAN: 1. Encounter for supervision of high risk in second trimester, antepartum (HCC) - ICD9: V23.9, ICD10: O09.92 (primary diagnosis) 2. 20 weeks gestation of (HCC) - ICD9: V22.2, ICD10: Z3A.20 Klarissa Rain MD documented in this encounter [facility] 10-31-2024 Instructions Maty Victor MA - 10/31/2024 8:34 AM EDT SEQUENTIAL SCREENINGS The [facility] offers sequential screenings for women who [...] It will require an appointment with our pv design and installation technician. This is not an ultrasound performed [...] the above symptoms, contact our office at [phone] and ask to speak with a nurse. After hours, you can call doctors registry at [phone] OR call [facility] at [phone] and ask to have the doctor epic beacon analyst paged. If you consider this an emergency, dial 5-1-7 or go to your nearest emergency department. NEED HELP? Are you dealing with a violent or abusive relationship? Are you a victim of rape or sexual assult? Call [facility] ([place]) 24 hour Crisis Hotline: 177.546.5312 or 023-739-7052. MANUAL Your Guide to a Healthy manual is now on-line. Visit [email or web address] Stacy to download your free copy documented in this encounter [facility] 10-15-2024 Telephone encounter Note Patient called in and will pick paperwork up. All to front end developer front end developer binder. Rita Chairez RN [facility] 10-15-2024 Miscellaneous Notes Patient called in and will pick paperwork up. All to front end developer front end developer binder. Rita Chairez RN SW asked that Pt's FMLA, work restrictions letter, & list of patient appointments be printed out for patient. Pt will call back and picker tender. All are printed out with patient label and at nurses desk. Breanna Gillette RN documented in this encounter [facility] 10-03-2024 Telephone encounter Note SW asked that Pt's FMLA, work restrictions letter, & list of patient appointments be printed out for patient. Pt will call back and picker tender. All are printed out with patient label and at nurses desk. Breanna Gillette RN [facility] 10-03-2024 Progress note Formatting of t his note might be different from the original. SW- pt doing well. No pain, vb, lof. PE: Gen- NAD, well appearing Abd- Soft, NT See flowsheet A/p 16 wk gestation - Cont LDA - Completed NIPT and NOB labs - Schedule anatomy US - RTO 4 wks Octavia Herzog DO [facility] 10-03-2024 Miscellaneous Notes SW- pt doing well. No pain, vb, lof. PE: Gen- NAD, well appearing Abd- Soft, NT See flowsheet A/p 16 wk gestation - Cont LDA - Completed NIPT and NOB labs - Schedule anatomy US - RTO 4 wks Octavia Herzog DO documented in this encounter [facility] 10-03-2024 Instructions Karly Pardo MA - 10/03/2024 10:20 AM EDT SEQUENTIAL SCREENINGS The [facility] offers sequential screenings for women who [...] It will require an appointment with our pv design and installation technician. This is not an ultrasound performed [...] the above symptoms, contact our office at [phone] and ask to speak with a nurse. After hours, you can call doctors registry at [phone] OR call [facility] at [phone] and ask to have the doctor epic beacon analyst paged. If you consider this an emergency, dial 9-1-1 or go to your nearest emergency department. NEED HELP? Are you dealing with a violent or abusive relationship? Are you a victim of rape or sexual assult? Call [facility] ([place]) 24 hour Crisis Hotline: 476.293.3907 or 999-010-5713. MANUAL Your Guide to a Healthy manual is now on-line. Visit [email or web address] Stacy to download your free copy documented in this encounter [facility] 09-11-2024 Progress note Formatting of t [...] of high risk in first trimester - [id number] PLUS - labs today- concern over FOB has hx of +HepC. She has never tested positive - Letter for lifting restrictions for work provided - Start ASA PO nightly - Increase fluids - RTO 4 weeks or sooner if needed Sunitha Aguilar APRN.CNM [facility] 09-11-2024 Miscellaneous Notes S: Gabe Viera [...] of high risk in first trimester - [id number] PLUS - labs today- concern over FOB has hx of +HepC. She has never tested positive - Letter for lifting restrictions for work provided - Start ASA PO nightly - Increase fluids - RTO 4 weeks or sooner if needed Sunitha Aguilar APRN.CNM documented in this encounter [facility] 09-11-2024 Instructions Karly Pardo MA - 09/11/2024 1:01 PM EDT SEQUENTIAL SCREENINGS The [facility] offers sequential screenings for women who [...] It will require an appointment with our pv design and installation technician. This is not an ultrasound performed [...] the above symptoms, contact our office at [phone] and ask to speak with a nurse. After hours, you can call doctors registry at [phone] OR call [facility] at [phone] and ask to have the doctor epic beacon analyst paged. If you consider this an emergency, dial 7-0-9 or go to your nearest emergency department. NEED HELP? Are you dealing with a violent or abusive relationship? Are you a victim of rape or sexual assult? Call [facility] ([place]) 24 hour Crisis Hotline: 760.849.3328 or 886-009-4406. MANUAL Your Guide to a Healthy manual is now on-line. Visit [email or web address] Stacy to download your free copy documented in this encounter [facility] 09-05-2024 Progress note Formatting of t his note might be different from the original. KJ S: Patient presents with bladder pressure. Also she reports having spotting last week that has become scant brown spotting. She reports ED visits for both of these concerns. O: 12w5d, see flow sheet SENSITIVE EXAM: Sensitive exam not performed. A/P: Assessment & Plan Cramping affecting , antepartum ([facility]) Orders: UA DIP, URINE (POC) BACTERIAL CULTURE, URINE Vaginal spotting Orders: UA DIP, URINE (POC) BACTERIAL CULTURE, URINE 12 weeks gestation of ([facility]) Orders: UA DIP, URINE (POC) BACTERIAL CULTURE, URINE Encounter for supervision of high risk in first trimester, antepartum ([facility]) Orders: UA DIP, URINE (POC) BACTERIAL CULTURE, URINE Bedside TAUS shows active fetus with FCA. Follow up next week for NT as scheduled. Sudarshan Hong MD [facility] 09-05-2024 Miscellaneous Notes KJ S: Patient presents with bladder pressure. Also she reports having spotting last week that has become scant brown spotting. She reports ED visits for both of these concerns. O: 12w5d, see flow sheet SENSITIVE EXAM: Sensitive exam not performed. A/P: Assessment & Plan Cramping affecting , antepartum ([facility]) Orders: UA DIP, URINE (POC) BACTERIAL CULTURE, URINE Vaginal spotting Orders: UA DIP, URINE (POC) BACTERIAL CULTURE, URINE 12 weeks gestation of ([facility]) Orders: UA DIP, URINE (POC) BACTERIAL CULTURE, URINE Encounter for supervision of high risk in first trimester, antepartum ([facility]) Orders: UA DIP, URINE (POC) BACTERIAL CULTURE, URINE Bedside TAUS shows active fetus with FCA. Follow up next week for NT as scheduled. Sudarshan Hong MD documented in this encounter [facility] 09-05-2024 Instructions Ashlyn Vasques MA - 09/05/2024 2:11 PM EDT SEQUENTIAL SCREENINGS The [facility] offers sequential screenings for women who [...] It will require an appointment with our pv design and installation technician. This is not an ultrasound performed [...] the above symptoms, contact our office at [phone] and ask to speak with a nurse. After hours, you can call doctors registry at [phone] OR call [facility] at [phone] and ask to have the doctor epic beacon analyst paged. If you consider this an emergency, dial 9-1-8 or go to your nearest emergency department. NEED HELP? Are you dealing with a violent or abusive relationship? Are you a victim of rape or sexual assult? Call [facility] 24 hour Crisis Hotline: 711.501.3297 or 353-960-7924. MANUAL Your Guide to a Healthy manual is now on-line. Visit [email or web address] Stacy to download your free copy documented in this encounter [facility] 09-04-2024 Telephone encounter Note ER records are in CareEverywhere. Appointment scheduled for tomorrow with RR. Klarissa Beckett, KATIE [facility] 09-04-2024 Miscellaneous Notes ER records are in CareEverywhere. Appointment scheduled for tomorrow with TIARA. Klarissa Beckett, RN Can schedule for appointment this week. Get both ED records. Thanks, Brooklyn Villalpando APRN.CNM 12w4d Patient calling with update after going to [place] ER yesterday. She thought she had UTI, but was told urine was negative and to f/u with OB provider. No u/s was done. Stated pain has lessened since yesterday, but she is still having constant pressure feeling like her bladder is full. She is having some brown discharge still from when she had bleeding on 08/29 (she went to [facility] ER for this and did have u/s then). No cramping, but does still have some discomfort with moving especially that causes a cramp like feeling at times. Please advise. Rita Chairez RN documented in this encounter [facility] 09-04-2024 Telephone encounter Note Can schedule for appointment this week. Get both ED records. Thanks, Brooklyn Villalpando APRN.CNM [facility] Work Phone: 09-04-2024 Telephone encounter Note 12w4d Patient calling with update after going to [place] ER yesterday. She thought she had UTI, but was told urine was negative and to f/u with OB provider. No u/s was done. Stated pain has lessened since yesterday, but she is still having constant pressure feeling like her bladder is full. She is having some brown discharge still from when she had bleeding on 08/29 (she went to [facility] ER for this and did have u/s then). No cramping, but does still have some discomfort with moving especially that causes a cramp like feeling at times. Please advise. Rita Chairez RN [facility] 09-03-2024 Note HNO ID: [id number] Author: WENDY TREVIZO LPN Service: ? Author [...] seen in the Emergency Department (ED) Location: [place] Date: 08/29/2024 Reason for ED Visit: Vaginal [...] transferred to call center. Wendy Trevizo LPN [facility] 09-03-2024 History of Presen t illness Narrative [...] Wendy Trevizo LPN documented in this encounter [facility] 09-03-2024 Note Patient Outreach (AG FAMPLE) GABE VIERA ([id number]) 1995 F ONOFRE Date Time Provider Department [...] seen in the Emergency Department (ED) Location: [place] Date: 08/29/2024 Reason for ED Visit: Vaginal [...] Date Reviewed: 08/22/2024 Reviewed by: Freda Santillan APRN.DRYWALL FINISHING FOREMAN - Fully Assessed Reason for Visit: ED Follow-up [821] Cmt: [place] [facility] 08/29/2024 Prescriptions as of 09/03/2024 - [...] Penicillin allergy [Z88.0] 08/01/2024 Encounter Status:Closed by WNEDY TREVIZO on 09/03/24 [facility] 08-22-2024 Instructions Freda Santillan APRN.DRYWALL FINISHING FOREMAN - 08/22/2024 8:59 AM EDT MORNING SICKNESS IN by Teresa Zhou M.D. for [employer]™ Audio As you may already know, morning sickness can often be more appropriately called evening sickness or ciixz-bnhwki-vi-the-day sickness. While there are the ni few, [...] prevent nausea from starting. vitamins and nausea: Pre-luis vitamins can sometimes worsen nausea in . [...] medication, Doxylamine, is currently marketed as an pqcu-xbr-pkyfafj sleeping pill. Ask your practitioner if creating a vitamin B6/Doxylamine combination with vsng-oqp-hghrevk medications would be safe for you. Prescription [...] Phenergan, Compazine, Reglan documented in this encounter [facility] 08-22-2024 Note HNO ID: [id number] Author: FREDA SANTILLAN APRN.DRYWALL FINISHING FOREMAN Service: ? Author Type: Nurse Practitioner Type: Progress Notes Filed: 08/22/2024 09:10 Note Text: Pickle Water Pump Operator offered: Patient declines. Gabe Viera is a [...] Living0 SAB0 IAB0 Ectopic0 Multiple0 Live Births0 Mechatronics Engineer History LMP: 06/08/2024 (Approximate), Age at Menarche: 14 Age at First : 28 Age at Menopause: Mechatronics Engineer History Comments: Sexual Activity: Yes; Male Contraception: [...] diarrhea, or constipation. + nausea Expanded ROS: WEB OPERATIONS SPECIALIST: + vaginal spotting/discharge Allergies and current medication updated:Yes SENSITIVE EXAM: The sensitive examination was discussed with the Patient or Patient's Authorized Sanitation Manager. As applicable, any other physician, advance practice provider, medical student, or other health professional student that will be observing or involved in the sensitive examination for educational or training purposes was discussed with the Patient or Authorized Sanitation Manager. The Patient or Authorized Sanitation Manager has agreed to proceed with the sensitive examination. (Sensitive examination includes inspection and/or palpation of the breasts, pelvis, prostate and anorectal regions). EXAM: BP 100/60 Wt 144 lb (65.3kg) LMP 06/08/2024 GENERAL: pleasant, female in no apparent distress HEENT: Normocephalic, atraumatic, mucus membranes moist, and no lesions CHEST: Normal inspiratory effort PELVIC: external genitalia normal, normal Bartholin's glands, urethra, [place]'s glands, no vulvar lesions, no cervical lesions, good vaginal support, + brown discharge noted, normal appearing perineal body and perianal region NEURO: alert and oriented x3,exam grossly non-focal EXTREMITIES: normal ASSESSMENT AND PLAN: 1. Cramping affecting , antepartum ([facility]) - ICD9: 646.83, 789.00, ICD10: O26.899, R10.9 (primary diagnosis) - Recommend decreasing caffeine/sugary drink consumption - Increase water intake 2. Vaginal discharge - ICD9: 623.5, ICD10: N89.8 3. Vaginal spotting - ICD9: 623.8, ICD10: N93.9 - BV/yeast culture obtained - Avoid intercourse at this time 4. 10 weeks gestation of ([facility]) - ICD9: V22.2, ICD10: Z3A.10 - Cardiac activity confirmed 5. Use of nicotine during ([facility]) - ICD9: 649.00, ICD10: O99.330 - Discussed this will contribute to nausea and recommend cessation to decrease risks to mom and baby 6. Nausea and vomiting during ([facility]) - ICD9: 643.90, ICD10: O21.9 - Start [...] Medical Decision Making Level: 3 - Low [facility] 08-22-2024 History of Presen t illness Narrative Pickle Water Pump Operator offered: Patient declines. Gabe Viera is a [...] Living0 SAB0 IAB0 Ectopic0 Multiple0 Live Births0 Mechatronics Engineer History LMP: 06/08/2024 (Approximate), Age at Menarche: 14 Age at First : 28 Age at Menopause: Mechatronics Engineer History Comments: Sexual Activity: Yes; Male Contraception: [...] diarrhea, or constipation. + nausea Expanded ROS: WEB OPERATIONS SPECIALIST: + vaginal spotting/discharge Allergies and current medication updated:Yes SENSITIVE EXAM: The sensitive examination was discussed with the Patient or Patient's Authorized Sanitation Manager. As applicable, any other physician, advance practice provider, medical student, or other health professional student that will be observing or involved in the sensitive examination for educational or training purposes was discussed with the Patient or Authorized Sanitation Manager. The Patient or Authorized Sanitation Manager has agreed to proceed with the sensitive examination. (Sensitive examination includes inspection and/or palpation of the breasts, pelvis, prostate and anorectal regions). EXAM: BP 100/60 Wt 144 lb (65.3kg) LMP 06/08/2024 GENERAL: pleasant, female in no apparent distress HEENT: Normocephalic, atraumatic, mucus membranes moist, and no lesions CHEST: Normal inspiratory effort PELVIC: external genitalia normal, normal Bartholin's glands, urethra, [place]'s glands, no vulvar lesions, no cervical lesions, [...] 3 - Low documented in this encounter [facility] 08-21-2024 Telephone encounter Note 10w4d Patient [...] to ER for evaluation. DIEGO Beckett RN [facility] 08-21-2024 Miscellaneous Notes 10w4d Patient called [...] DIEGO Beckett, RN documented in this encounter [facility] 08-21-2024 Telephone encounter Note Patients intermittent FMLA paperwork has been completed and faxed back to employer. Patient notified. Osmani Juarez MA [facility] 08-21-2024 Miscellaneous Notes Patients intermittent FMLA paperwork has been completed and faxed back to employer. Patient notified. Osmani Juarez MA documented in this encounter [facility] 08-19-2024 Telephone encounter Note Patient informed of results. Marilyn Campos MA [facility] 08-19-2024 Telephone encounter Note ----- Message from Agustín Blackwell APRN.DRYWALL FINISHING FOREMAN sent at 08/18/2024 7:42 PM EDT ----- Negative covid flu and rsv [facility] 08-19-2024 Miscellaneous Notes Patient informed of results. Marilyn Campos MA ----- Message from Agustín Blackwell APRN.DRYWALL FINISHING FOREMAN sent at 08/18/2024 7:42 PM EDT ----- Negative covid flu and rsv documented in this encounter [facility] 08-15-2024 Note SARS-COV-2 (AGENT OF COVID-19) RNA: Not detected INFLUENZA A RNA: Not detected INFLUENZA B RNA: Not detected RESPIRATORY SYNCYTIAL VIRUS (RSV) RNA: Not detected [facility] Comment on above: Performed By: #### 2 [id number] #### [facility] CLIA [id number] [address] [place] [address] STATES OF [facility] 08-15-2024 History of Presen t illness Narrative This note was created using CookItFor.Uster. Subjective Gabe Viera is a 28 year old female patient of [facility] Queden here today for acute visit for [...] persist or worsen. documented in this encounter [facility] 08-15-2024 Note HNO ID: [id number] Author: AGUSTÍN BLACKWELL APRN.DRYWALL FINISHING FOREMAN Service: ? Author Type: Nurse Practitioner Type: Progress Notes Filed: 08/15/2024 15:33 Note Text: This note was created using NoteWriter. Subjective Gabe Viera is a 28 year old female patient of [facility]BEAR[facility] Queden here today for acute visit for [...] ACTIVE PROBLEM LIST Use of Nicotine During ([facility]) Vaginal Discharge Encounter for Supervision of High Risk in First Trimester, Antepartum ([facility]) Depression With Anxiety Nausea and Vomiting During ([facility]) Fall Penicillin Allergy PAST MEDICAL HISTORY Diagnosis Date Anxiety Asthma ([facility]) childhood Bronchitis Depression Personality disorder ([facility]) PAST SURGICAL HISTORY Procedure Laterality Date NONE [...] based on available (more content not included)... [facility] 08-07-2024 Note HNO ID: [id number] Author: TIANA CARPENTER MD Service: ? Author Type: Physician Type: Progress Notes Filed: 08/07/2024 09:22 Note Text: The appointment was cancelled for this patient. Tiana Carpenter MD [facility] 08-06-2024 Telephone encounter Note No Show Documentation [...] Qasim Worrell August 06, 2024 11:02 AM [facility] 08-06-2024 Miscellaneous Notes No Show Documentation [...] 2024 11:02 AM documented in this encounter [facility] 07-31-2024 Note HNO ID: [id number] Author: FREDA SANTILLAN APRN.DRYWALL FINISHING FOREMAN Service: ? Author Type: Nurse Practitioner Type: Progress Notes Filed: 08/01/2024 14:39 Note Text: Pickle Water Pump Operator offered: Patient declines. INITIAL OB ASSESSMENT HPI: [...] for delivery: Have you had a prior alfaro between 20w and 36w6d? No How many [...] harming myself has occurred to me. Never [place] Depression Scale Total 17 Feeling nervous, anxious [...] employed Gender: Male (more content not included)... [facility] 07-17-2024 Telephone encounter Note Called patient. Scheduled for viability US and f/u visit with RR on 07/25. Patient reports having a yeast infection. Vaginal itching and thick white discharge. Discussed OTC Monistat 7 day. She has not had any more bleeding since ER visit. Occasional right sided sharp pain continues. Klarissa Beckett RN [facility] 07-17-2024 Miscellaneous Notes Called patient. Scheduled [...] Sunitha Aguilar APRN.CNM Patient did go to [facility] ER on 07/15/24. She did have labs and u/s. All records available under care everywhere. Copied some below. Should she get the repeat hcg done today at [facility]? This order was previously placed. US/Transvaginal w/Preg US IMPRESSION: Early intrauterine gestational sac with a yolk sac but no identifiable pole. Differential diagnosis includes an early intrauterine , or incomplete . Serial beta HCG measurements is recommended. [facility] hcg Result: HCG ( test) Ql Ordered By: Jacinto Abarca on 07-15-2024 Human Chorionic Gonadotropin, Quant 5000 mIU/mL Previous [facility] results: hCG Quantitative, Blood (mIU/mL) Date Value 07/10/2024 1,045.0 07/07/2024 420.4 Patient called and notified of below instructions. Patient states she is actually already on her way to [place] ED. Patient states she has not had an increase in bleeding or pain/cramping since last call, but she is just feeling anxious and wants to be evaluated. Patient will call office tomorrow with update and schedule ultrasound if not done in ED. Will look for ER reports from [facility] tomorrow. Cristobal Smiley RN Formal ultrasound soonest [...] 07/10 for a ER follow up at [place] on 07/07. When she went to the ER she did not have any bleeding only cramping. Currently rating abdominal cramping at a 4-5 out of 10, occasional stabbing. LMP was 06/08, making her approximately 5w2d. blee hCG Quantitative, Blood (mIU/mL) Date Value 07/10/2024 1,045.0 07/07/2024 420.4 Cristobal Smiley RN documented in this encounter [facility] 07-17-2024 Telephone encounter Note I would recommend a visit in office prior to NOB due to cramping and spotting. I would recommend a formal ultrasound here as well. Next week is fine. Sunitha Aguilar APRN.CNM T [facility] Work Phone: 07-17-2024 Telephone encounter Note She doesn't have an appointment until her NOB on 08/01/24. Does she need one this week? Rita Chairez RN [facility] 07-17-2024 Telephone encounter Note We can discuss ordering HCG levels at her appointment. Thank you! Sunitha Aguilar APRN.CNM T [facility] 07-17-2024 Telephone encounter Note Patient did go to [facility] ER on 07/15/24. She did have labs and u/s. All records available under care everywhere. Copied some below. Should she get the repeat hcg done today at [facility]? This order was previously placed. US/Transvaginal w/Preg US IMPRESSION: Early intrauterine gestational sac with a yolk sac but no identifiable pole. Differential diagnosis includes an early intrauterine , or incomplete . Serial beta HCG measurements is recommended. [facility] hcg Result: HCG ( test) Ql Ordered By: Jacinto Abarca on 07-15-2024 Human Chorionic Gonadotropin, Quant 5000 mIU/mL Previous [facility] results: hCG Quantitative, Blood (mIU/mL) Date Value 07/10/2024 1,045.0 07/07/2024 420.4 [facility] 07-15-2024 Discharge summary [facility] 07-15-2024 Radiology Diagnostic study note [facility] Imaging Services [address] [place] [address] [id number] Transvaginal w/Preg US MR#: [id number] Acct: [id number] Name: GABE VIERA Rep #: [id number] : 1995 F 28 From: Luan Jean MD PCP: Care Physician,No Primary Status: PRE ER Study:Transvaginal w/Preg US Date of Exam: 07/15/24 Exam# [id number] Ordering Dr: Charo Abarca DO PROCEDURE: TRANSVAGINAL [...] and unremarkable. DIMENSIONS: Parameter Measurement / EGA [place] Rump Length: Not visualized/ Gestational Sac: 7 [...] Serial beta HCG measurements isrecommended. Reading Location: [id number] CC: Dr. Jacinto Abarca, DO; No Primary Care Physician ~ Offset Pressman: Signed [facility] 07-15-2024 Telephone encounter Note Patient called and notified of below instructions. Patient states she is actually already on her way to [place] ED. Patient states she has not had an increase in bleeding or pain/cramping since last call, but she is just feeling anxious and wants to be evaluated. Patient will call office tomorrow with update and schedule ultrasound if not done in ED. Will look for ER reports from [facility] tomorrow. Cristobal Smiley RN [facility] 07-15-2024 Telephone encounter Note Formal ultrasound soonest appointment please. Thanks, Brooklyn Villalpando APRN.CNM [facility] 07-15-2024 Telephone encounter Note Patient called back. Are you wanting patient to have a formal US or bedside? No pelvic US openings until . Also need HCG orders signed. Klarissa Beckett RN [facility] 07-15-2024 Telephone encounter Note Left message to call office. Please file pended HCG quant level. Cristobal Smiley RN [facility] 07-15-2024 Telephone encounter Note I can order another hCG and pelvic ultrasound. Can she have an US and follow up visit tomorrow due to no prior US and confirm IUP. Brooklyn Villalpando APRN.CNM [facility] 07-15-2024 Discharge summary Note Date/Time July 15, 2024 8:55pm [facility] Medical Records Department [address] [place] [address] Emergency Department Summary 07/15/24 MR#: [id number] Acct: [id number] Name: GABE VIERA Rep #:[id number] : 1995 28 From: Jacinto Zambrano PCP: [...] with patient who agreed to follow with LYE BATH OPERATOR. Strict return precautions were discussed. Follow-up was [...] Discharge home This note was generated with Qiniu dictation software. It may contain incorrectwords, spelling, and punctuation that were not noted in review of the chart prior to signing. 07/15/242054<Electronically signed by Jacinto Abarca DO> Cosigner Signature (if applicable): cc: LAYLA Morgan ~* Signed HPI History of Present Illness Chief Complaint: Abd Pain [facility] Medical History (Updated 12/06/22 @ 15:33 by Amparo CHRISTIANSON, PA) Contact with and (suspected) exposure to other viral communicable diseases Acute streptococcal pharyngitis COVID-19 URI (upper respiratory infection) Home Medications ?Medication ?Instructions ?Recorded ?Last Taken ?Type llqcrfbbtgkvmbj-rquiuvtsgpgjggu-MM 10 ml PO Q4H PRN Unknown History 2 mg-30 mg-10 mg/5 mL oral syrup clindamycin HCl 300 mg capsule 300 mg PO Q8H 12/06/22 Unknown History methylprednisolone 4 mg tablets in See Rx Instructions PO PER PKG DIR 12/06/22 Unknown Rx a dose pack (Medrol ([place])) #21 tabs norgestimate 0.25 mg-ethinyl 1 tab PO DAILY 12/06/22 U nknown History estradiol 35 mcg tablet ([place]) Allergy/AdvReac Type Severity Reaction Status Date / [...] History obtained from others: none Consults: none [facility] Narrative: The patient was initially hemodynamically stable, [...] with patient who agreed to follow with LYE BATH OPERATOR. Strict return precautions were discussed. Follow-up was [...] Discharge home This note was generated with Qiniu dictation software. It may contain incorrectwords, spelling, [...] % (Auto) 63.8 Lymph % (Auto) 27.6 [place] % (Auto) 6.7 Eos % (Auto) 1.0 [...] Serial beta HCG measurements isrecommended. Reading Location: [id number] Discharge Plan Triage Chief Complaint: Abd Pain ED Provider: Jacinto Abarca Dx/Rx/DC Orders Prescriptions: No Action xzxuckwrdqpzowm-ylawwfogu-BZ 2-30-10 mg/5 mL syrup 10 ml PO Q4H PRN Patient Comments: take TEN ml BY MOUTH EVERY 4 HOURS BY MOUTH NEEDED FOR 5 DAYS clindamycin HCl 300 mg capsule 300 mg PO Q8H Patient Comments: TAKE 1 CAPSULE BY MOUTH EVERY 8 HOURS FOR 10 DAYS norgestimate-ethinyl estradiol [[place]] 0.25-35 mg-mcg tablet 1 tab PO DAILY Patient Comments: Take 1 tablet by mouth daily. methylprednisolone [Medrol ([place]ry)] 4 mg tablets,dose pack See Rx Instructions PO PER PKG DIR Qty: 21 0RF Rx Instructions: PO PER PKG DIR Primary Care Provider: Elisabet Morgan NP Referrals: Elisabet Morgan NP, [facility]BEARER-C [Primary Care Provider] - Print Language: Marshallese What to do if you have Problems For any increased pain, shortness of breath, bleeding, nausea or vomiting, chestpain, or any unexpected problems, contact your Primary Care Provider. Call [facility] ([phone]) or report to the closest Emergency Room. Call 911 if necessary. 07/15/241921 <Electronically signed by Jacinto Abarca DO> Cosigner Signature (if applicable): CC: GREEN CHAIN OFFBEARER-C Elisabet Morgan ~ Signed [facility] Work Phone: 1(220) 393-207004-07-2025 Telephone encounter Note* Telephone Encounter - Cristobal [...] 07/10 for a ER follow up at [place] on 07/07. When she went to the ER she did not have any bleeding only cramping. Currently rating abdominal cramping at a 4-5 out of 10, occasional stabbing. LMP was 3/1, making her approximately 5w2d. blee hCG Quantitative, Blood (mIU/mL) Date Value 07/10/2024 1,045.0 07/07/2024 420.4 Cristobal Smiley RN [facility]04-02-2025 History of Present illness Narrative* Jose Reese MD - 07/10/2024 11:10 AM EDT Gabe Viera is a 28 year old female who presents for problem visit follow up [place], Emergency Room visit on 07/07/2024 for reported vaginal cramping requested additional Hcg lab order, last Hcg 07/07/2024 420.4. HPI:Patient see3n at [place] ER to confirm Quant. BHCG 420 Asked to repeat BHCG in 48 hrs and presents today for lab. Reports nausea w/o emesis and breast tenderness. 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 Author Type: Physician Type: Progress Notes Filed: 07/10/2024 11:34 Note Text: Gabe Viera is a 28 year old female who presents for problem visit follow up [place], Emergency Room visit on 07/07/2024 for reported vaginal cramping requested additional Hcg lab order, last Hcg 07/07/2024 420.4. HPI:Patient see3n at [place] ER to confirm Quant. BHCG 420 Asked to repeat BHCG in 48 hrs and presents today for lab. Reports nausea w/o emesis and breast tenderness. 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 Author [...] seen in the Emergency Department (ED) Location: [facility] Date: 06/12/2024 Reason for ED Visit: Pleuritic [...] at this time. [facility] History of Present illness Narrative* Wendy Trevizo LPN - 06/17/2024 2:54 PM EDT ED Follow-Up Note Provider Action / FYI: Call completed by: JAMMIE Patient seen in ED: Out of Network ED Contact made with Patient: Yes The patient was identified by Name and Date of . Discussed Care with: patient Patient was seen in the Emergency Department (ED) Location: [facility] Date: 06/12/2024 Reason for ED Visit: Pleuritic [...] time. Wendy Trevizo LPN documented in this encounterKettering [facility] Hospital03-10-2025 NotePatient Outreach (AGFAMPLE) VIERAGABE Nayak ([id number]) 1995 F ONOFRE Date Time Provider Department [...] seen in the Emergency Department (ED) Location: [facility] Date: 06/12/2024 Reason for ED Visit: Pleuritic [...] Reason for Visit: ED Follow-up [821] Cmt: [facility] ED 06/12/2024 Meds Comments as of 12/14/2015: Pt states she takes control pill, unable to recall which one Problem List As Of Date 06/17/2024 Noted Resolved Obesity, Class I, BMI 30-34.9 [E66.811] 07/12/2021 Bacterial vaginosis [N76.0, B96.89] 07/12/2021 Encounter Status:Closed by WENDY TREVIZO on 06/17/24[facility] 06-12-2024 Hospital Discharge instructions* Discharge Instructions* Keyona [...] Everywhere. * Pleuritic Chest Pain Discharge Instructions ([place]) * Cough, Adult ED ([place]) * Muscle Spasm ED ([place]) documented in this [facility]03-05-2025 Emergency department Note* Keyona Conrad MD - [...] following with Dr. Ramires for as an LYE BATH OPERATOR outpatient, but there is no actual history [...] min Stress: No Stress Concern Present (10/25/2022) [employer] [place] [employer] - Occupational Stress Questionnaire [...] able to answer questions and follow commands harp action assembler II-XII normal Normal 5/5 strength and normal [...] In compliance with this authorization, please visit www.fda.gov/media/589103/download or www.fda.gov/media/135993/download to access the applicable information sheets. D-DIMER,QUANTITATIVE [...] chest x-ray is normal she has a [facility] thoracic aortic dissection CMT score of 0 [...] or greater than the risk of discharge. [id number] SHARED DECISION MAKING: I discussed my risk assessment with the patient. The patient understands and consents to the risk of disposition/plan, as well as the risk of uncertainty in estimating outcomes. [id number] PROCEDURES: Unless otherwise noted below, none Procedures EKG: I read and interpreted this EKG. My interpretation can be found in the [facility] EKG system. EKG shows sinus arrhythmia, normal axis, normal ID QRS and QTC intervals. No STEMI, no [...] Morgan, by the end of this w [place] to ensure she is feeling better. If [...] EKG done on arrival documented in this [facility]03-05-2025 Emergency department Triage note* Elisa Melton RN - 06/12/2024 2:43 PM EST Since last night c/o chest pain with radiation down both arms, cough, shortness of breath and dizziness. EKG done on arrival [id number] Physician Emergency department Note* Keyona Conrad MD [...] following with Dr. Ramires for as an LYE BATH OPERATOR outpatient, but there is no actual history [...] min Stress: No Stress Concern Present (10/25/2022) [employer] [place] [employer]ational [employer] - Occupational Stress Questionnaire [...] able to answer questions and follow commands harp action assembler II-XII normal Normal 5/5 strength and normal [...] In compliance with this authorization, please visit www.fda.gov/media/169544/download or www.fda.gov/media/872051/download to access the applicable information sheets. D-DIMER,QUANTITATIVE [...] chest x-ray is normal she has a [facility] thoracic aortic dissection CMT score of 0 [...] or greater than the risk of discharge. [id number] SHARED DECISION MAKING: I discussed my risk assessment with the patient. The patient understands and consents to the risk of disposition/plan, as well as the risk of uncertainty in estimating outcomes. [id number] PROCEDURES: Unless otherwise noted below, none Procedures EKG: I read and interpreted this EKG. My interpretation can be found in the [facility] EKG system. EKG shows sinus arrhythmia, normal axis, normal ID QRS and QTC intervals. No STEMI, no [...] Morgan, by the end of this w [place] to ensure she is feeling better. If [...] Emergency Medicine Provider Keyona Conrad MD 06/12/241943 [facility]01-21-2025 NoteHNO ID: [id number] Author: CAROLYNN HUMPHREY, DO Service: ? Author [...] ICD9: 780.4, ICD10: R42 (more content not included)...[facility]01-21-2025 History of Present illness Narrative* YvetteCarolynn - [...] nights Carolynn Humphrey DO documented in this encounterKet[facility]05-[facility]24 Telephone encounter Note * Telephone Encounter - Jeffry Balbuena MA - 08/11/2023 1:07 PM EDT Patient received her my chart message. Jeffry Balbuena MA [facility]05-03-2024 Miscellaneous Notes* Telephone Encounter - Jeffry Balbuena MA - 08/11/2023 1:07 PM EDT Patient received her my chart message. Jeffry Balbuena MA * Telephone Encounter - Jeffry Balbuena MA - 08/11/2023 1:05 PM EDT ----- Message from Elisabet Morgan APRN.DRYWALL FINISHING FOREMAN sent at 08/11/2023 11:34 AM EDT ----- Please let patient know their results are WNL. Thank you. documented in this encounterKettering [facility] Hospital05-03-2024 Telephone encounter Note * Telephone Encounter - Jeffry Balbuena MA - 08/11/2023 1:05 PM EDT ----- Message from Elisabet Morgan APRN.DRYWALL FINISHING FOREMAN sent at 08/11/2023 11:34 AM EDT ----- Please let patient know their results are WNL. Thank you. [facility]05-03-2024 History of Present illness Narrative* Elisabet [...] Monocytes % 07/10/2023 4.8 % Final Abs [place] 07/10/2023 0.44 <0.87 k/uL Final Eosinophils % [...] (H) 74 - 99 mg/dL Final The [place] Diabetes Association (ADA) provides guidance for cutoff [...] Standards of Medical Care in Diabetes 2016, [place] [employer]. Diabetes Care. 2016.39(Suppl 1). BUN [...] DATE OF EXAM: Jul 11 2023 10:14AM [facility] 0530 - CT ABD/PEL W IVCON / [...] side - Increase fiber in diet - [place] low residue diet 2. Prediabetes - ICD9: [...] requirements were given to patient. Elisabet Morgan APRN.DRYWALL FINISHING FOREMAN documented in this encounterKettering [facility] Hospital05-02-2024 Telephone encounter Note * Telephone Encounter - Avani Ragsdale MA - 08/10/2023 7:42 AM EDT ----- Message from Jeffry Balbuena MA sent at 07/11/2023 7:16 AM EDT ----- Remind pt. Time to recheck UA. Jeffry Balbuena MA [facility]05-02-2024 Miscellaneous Notes* Telephone Encounter - Avani Ragsdale MA - 08/10/2023 7:42 AM EDT ----- Message from Jeffry Balbuena MA sent at 07/11/2023 7:16 AM EDT ----- Remind pt. Time to recheck UA. Jeffry Balbuena MA documented in this encounterKettering [facility] Hospital04-05-2024 Miscellaneous Notes* Telephone Encounter - Jeffry Balbuena MA - 07/14/2023 1:20 PM EDT Patient notified. .Jeffry Balbuena MA * Telephone Encounter - Jeffry Balbuena MA - 07/14/2023 1:19 PM EDT ----- Message from Sylvia Becker APRN.DRYWALL FINISHING FOREMAN sent at 07/14/2023 12:57 PM EDT ----- Normal besides mild elevated of sugar. Sylvia Becker APRN.DRYWALL FINISHING FOREMAN documented in this encounterKettering [facility] Hospital04-05-2024 Miscellaneous Notes* Telephone Encounter - Avani Ragsdale MA - 07/14/2023 7:48 AM EDT Patient is informed Avani Ragsdale MA * Telephone Encounter - Avani Ragsdale MA - 07/14/2023 7:48 AM EDT ----- Message from Sylvia Becker APRN.DRYWALL FINISHING FOREMAN sent at 07/13/2023 11:54 PM EDT ----- Please notify patient results are normal. Thank you. Sylvia Becker APRN.DRYWALL FINISHING FOREMAN documented in this encounterKettering [facility] Hospital04-02-2024 Miscellaneous Notes* Telephone Encounter - Jeffry Balbuena MA - 07/11/2023 8:35 AM EDT Patient received her my chart message. Jeffry Balbuena MA * Telephone Encounter - Jeffry Balbuena MA - 07/11/2023 7:16 AM EDT Reminder placed. Jeffry Balbuena MA * Telephone Encounter - Sylvia Becker APRN.DRYWALL FINISHING FOREMAN - 07/10/2023 10:46 PM EDT Urine test is negative UA shows some protein and glucose Blood sugar was slightly elevated at 103, prediabetes range Liver, kidney, pancreas levels normal Cbc normal Recheck urinalysis in 1 month, please add reminder Sylvia Becker APRN.DRYWALL FINISHING FOREMAN documented in this encounterKettering [facility] Hospital04-01-2024 History of Present illness Narrative* Sylvia [...] was August 2021 = Normal She saw WEB OPERATIONS SPECIALIST, Dr Valles, has had 2 pelvic US done She would like to see a new WEB OPERATIONS SPECIALIST Hx of LEFT ovary cyst She has [...] She is not toxic-appearing. HENT: Mouth/Throat: Lips: [place]. Mouth: Mucous membranes are moist. Pharynx: Oropharynx [...] ICD9: 625.0, ICD10: N94.10 - CONSULT TO LYE BATH OPERATOR Sylvia Becker APRN.DRYWALL FINISHING FOREMAN documented in this encounterKettering [facility] Hospital03-22-2024 History of Present illness Narrative* Malia [...] Diagnosis Plan 1. Pelvic pain in female [facility] PLAN: Follow up for annual. Orders Placed This Encounter Procedures [facility] [place] Standing Status: Future Standing Expiration Date: 06/29/2024 Referral Priority: Routine Referral Type: Therapy Referral Reason: Eval and Treat Requested Specialty: Physical Therapy Number of Visits Requested: 1 The encounter diagnosis was Pelvic pain in female. and Follow-up (results) as well as counseling on preventative health maintenance follow-up. documented in this [facility]03-01-2024 History of Present illness Narrative* Malia Valles MD - 06/09/2023 9:15 AM EST Gabe Viera 06/29/2023 Date Of : 1995 HPI: Gabe Viera is a 27 y.o. female The patient was seen today. She is here regarding Pelvic pain 2 wks. Ho hem cyst. Off ocp for the last 3 wks. Menses jockey's agent and cramping less with ocp. Ran out [...] in about 2 weeks (around 06/23/2023) for youth corrections officer ulsd and fu. Wants to go back [...] preventative health maintenance follow-up. documented in this [facility]08-25-2023 Telephone encounter Note* Telephone Encounter - Judy Moctezuma - 12/02/2022 9:51 AM EDT Patient seen in office for the myrisk testing today. Scanned all documents into media. Called [employer]@ and s/w Adam. Provided [address] for picker tender. To be pickedup before 3pm. Reference # [id number]. [id number] Miscellaneous Notes* Telephone Encounter - Judy Moctezuma - 12/02/2022 9:51 AM EDT Patient seen in office for the myrisk testing today. Scanned all documents into media. Called [employer]@ and s/w Adam. Provided [address] for picker tender. To be pickedup before 3pm. Reference # [id number]. documented in this encounterSChillicothe VA Medical [id number] History of Present illness Narrative* Malia Valles [...] that they are currently in the state [facility]. If the patient is a minor, permission has been obtained by the parent or guardian for the patient to receive medical care at this visit. [facility] reviewed with patient Assessment: Diagnosis Plan 1. [...] preventative health maintenance follow-up. documented in this [facility]07-28-2023 History of Present illness Narrative* Jeffry Balbuena MA - 11/04/2022 11:45 AM EDT ED Follow Up: Patient discharged from [facility] ED on 11/01/2022. 1. How are [...] you able to contact the office or epic beacon analyst provider prior to your ED visit? Not applicable 5. Is there anything else I can do for you today? No Patient declined apt. Feels better. Jeffry Balbuena MA documented in this encounterKettering [facility] Hospital07-18-2023 History of Present illness Narrative* Malia [...] in about 2 weeks (around 11/08/2022) for youth corrections officer ulsd and fu. Pelvic floor pt will [...] preventative health maintenance follow-up. documented in this encounterSChillicothe VA Medical [id number] Miscellaneous Notes* Telephone Encounter - Jeffry Balbuena MA - 08/16/2021 2:56 PM EDT Patient notified. Jeffry Balbuena MA * Telephone Encounter - Jeffry Balbuena MA - 08/16/2021 2:56 PM EDT ----- Message from Elisabet Morgan APRN.CNP sent at 08/16/2021 2:46 PM EDT ----- Pap was normal. Negative for BV, Trich, yeast documented in this encounterKettering [facility] Hospital05-04-2022 Miscellaneous Notes* Telephone Encounter - Elisabet Morgan APRN.CNP - 08/11/2021 2:49 PM EDT Already addressed. * Telephone Encounter - Avani Ragsdale MA - 08/11/2021 8:58 AM EDT ----- Message from Avani Ragsdale MA sent at 07/14/2021 1:39 PM EDT ----- Regarding: BQ Pt Recheck CBC in 4 weeks. Avani Ragsdale MA documented in this encounterKettering [facility] Hospital05-02-2022 History of Present illness Narrative* Elisabet Morgan APRN.CNP - 08/09/2021 9:50 AM EDT Images from the original note were not included. [place] [id number] Date of Evaluation: 08/09/2021 Patient Name: Gabe Viera : 1995 Chief Complaint: Patient presents with: Mechatronics Engineer Exam Nursing Intake: There are no exam [...] adnexa normal and left adnexa normal. Comments: Pickle Water Pump Operator offered but patient declined. Neurological: Mental Status: [...] plans. Elisabet Morgan APRN.CNP documented in this encounterKettering [facility] Hospital04-07-2022 Miscellaneous Notes* Telephone Encounter - Marilyn [...] but she can buy it OTC at [facility].. This was addressed in a [...] waiting for trich results documented in this encounterKettering [facility] Hospital04-06-2022 Miscellaneous Notes* Telephone Encounter - Elisabet Morgan APRN.CNP - 07/14/2021 12:31 PM EDT Addressed in result encounter. documented in this encounterKettering Memorial Hospital04-04-2022 Miscellaneous Notes* Telephone Encounter - Za [...] suppositories. If not, she can check at [facility]. * Telephone Encounter - Za Jimenez MA - 07/12/2021 11:41 AM EDT Pharmacy called left a vm stating they cannot prescribe the boric acid vaginal suppository since itis a compound. Please advise Za Jimenez MA documented in this encounterKettering Memorial Hospital04-04-2022 Instructions* Patient Instructions* Elisabet Morgan APRN.CNP [...] increased risk of pelvic inflammatory disease (PID). 1211-1907 [employer], [address] [place] [address], [place] [address]. All rights reserved. This information is not intended as a substitute for professional medical care. Always follow your health care provider's instructions. documented in this encounterKettering Memorial Hospital04-04-2022 History of Present illness Narrative* Elisabet Francisco oMrgan, MAMMOGRAPHY TECHNICIAN.DRYWALL FINISHING FOREMAN - 07/12/2021 8:20 AM EDT Images from the original note were not included. [facility] Elisabet Morgan MAMMOGRAPHY TECHNICIAN-DRYWALL FINISHING FOREMAN [address] [place] [address] Dept Dept. Visit Date: July 12, 2021 Ms.Anastasia Morenita Viera Date of : 1995 MRN/E #: [id number] Chief Complaint: Patient presents with: Establish Care [...] history is provided by the patient. No dough mixing machine operator was used. PAST MEDICAL HISTORY Diagnosis Date [...] 12, 2021 8:20 AM [facility]* Diagnosis Well adult exam- Primary Routine [...] for venereal disease documented in this encounter [facility] note* Diagnosis BV (bacterial vaginosis) Vaginitis and vulvovaginitis, unspecified documented in this encounter [facility]* Diagnosis Well woman exam with routine gynecological exam- Primary Routine gynecological examination Screening for cervical cancer Screening for malignant neoplasm of the cervix Vaginal discharge Leukorrhea, not specified as infective Bacterial vaginosis Vaginitis and vulvovaginitis, unspecified Leukocytosis, unspecified type documented in this encounter [facility] note* Diagnosis Pelvic pain in female- Primary Unspecified symptom associated with female genital organs Vaginal discharge Leukorrhea, not specified as infective documented in this encounter [facility]* Diagnosis Pelvic pain in female- Primary Unspecified symptom associated with female genital organs Cyst of left ovary Other and unspecified ovarian cyst Family history of ovarian cancer Family history of malignant neoplasm of ovary documented in this encounter [facility] note* Diagnosis Onset Date Resolution Status Acute streptococcal pharyngitis acute Contact with and (suspected) exposure to other viral communicable diseases acute Cough acute [facility] Work Phone: Evaluation note* Diagnosis Pelvic pain in female- Primary Unspecified symptom associated with female genital organs Vaginal discharge Leukorrhea, not specified as infective Pelvic pain in female Unspecified symptom associated with female genital organs documented in this encounter [facility] note* Diagnosis Pelvic pain in female- Primary Unspecified symptom associated with female genital organs documented in this encounter [facility] note* Diagnosis Right lateral abdominal pain- Primary Abdominal pain, unspecified site Right lower quadrant abdominal pain Abdominal pain, right lower quadrant Rectal bleeding Hemorrhage of rectum and anus Dyspareunia in female documented in this encounter [facility] note* Diagnosis Right lower quadrant abdominal pain Abdominal pain, right lower quadrant documented in this encounter [facility] note* Diagnosis Right lower quadrant abdominal pain- Primary Abdominal pain, right lower quadrant Prediabetes Other abnormal glucose Glucose found in urine on examination Glycosuria Proteinuria, unspecified type Itching in the vaginal area Pruritus of genital organs documented in this encounter [facility] note* Diagnosis Lightheadedness- Primary Dizziness and giddiness Screening for thyroid disorder Vaginal irritation Unspecified noninflammatory disorder of vagina documented in this encounter [facility] note* Diagnosis Pleuritic chest pain- Primary Painful respiration Acute cough documented in this encounter [facility] note* Diagnosis 4 weeks gestation of (HCC)- Primary state, incidental documented in this encounter [facility] noteNo assessment information availableWAdena Pike Medical Center Work Phone: Evaluation note* Diagnosis Pelvic pain in (HCC)- Primary Other specified complication of , unspecified as to episode of care Bleeding in early ([facility]) Unspecified hemorrhage in early , unspecified as to episode of care documented in this encounter [facility] note* Diagnosis Non-recurrent acute suppurative otitis media of left ear without spontaneous rupture of tympanic membrane- Primary Sore throat Acute pharyngitis First trimester (HCC) state, incidental documented in this encounter [facility] note* Diagnosis Cramping affecting , antepartum ([facility])- Primary Vaginal discharge Leukorrhea, not specified as infective Vaginal spotting Other specified noninflammatory disorder of vagina 10 weeks gestation of (HCC) state, incidental Use of nicotine during ([facility]) Nausea and vomiting during ([facility]) [facility]* Diagnosis Encounter for supervision of high risk in first trimester, antepartum (HCC)- Primary Cramping affecting , antepartum (HCC) Vaginal spotting Other specified noninflammatory disorder of vagina 12 weeks gestation of ([facility]) state, incidental * Assessment & Plan Note - Sudarshan Hong MD - 09/05/2024 2:47 PM EDTAssociated Problem(s): Encounter for supervision of high risk in first trimester, antepartum ([facility]) Orders: UA DIP, URINE (POC) BACTERIAL CULTURE, URINE documented in this encounter [facility] note* Diagnosis Encounter for supervision of high risk in first trimester, antepartum (HCC)- Primary Cramping affecting , antepartum (HCC) Vaginal spotting Other specified noninflammatory disorder of vagina 12 weeks gestation of ([facility]) state, incidental Encounter for screening for malformation using ultrasound ([facility])- Primary Encounter for (NT) nuchal translucency scan ([facility]) Other specified screening 13 weeks gestation of ([facility]) state, incidental documented in this encounter [facility] note* Diagnosis Encounter for supervision of high risk in first trimester, antepartum (HCC)- Primary Cramping affecting , antepartum (HCC) Vaginal spotting Other specified noninflammatory disorder of vagina 12 weeks gestation of (HCC) state, incidental 13 weeks gestation of ([facility])- Primary state, incidental Encounter for supervision of high risk in first trimester, antepartum (HCC) documented in this encounter [facility] note* Diagnosis Encounter for supervision of high risk in first trimester, antepartum (HCC)- Primary Cramping affecting , antepartum (HCC) Vaginal spotting Other specified noninflammatory disorder of vagina 12 weeks gestation of ([facility]) state, incidental Encounter for supervision of high risk in second trimester, antepartum (HCC)- Primary 16 weeks gestation of ([facility]) state, incidental [facility] Encounter for supervision of high risk in first trimester, antepartum (HCC)- Primary Cramping affecting , antepartum (HCC) Vaginal spotting Other specified noninflammatory disorder of vagina 12 weeks gestation of (HCC) state, incidental Encounter for supervision of high risk in first trimester, antepartum (HCC) [facility] Diagnosis Encounter for supervision of high risk in first trimester, antepartum (HCC)- Primary Cramping affecting , antepartum (HCC) Vaginal spotting Other specified noninflammatory disorder of vagina 12 weeks gestation of (HCC) state, incidental Encounter for supervision of high risk in second trimester, antepartum (HCC)- Primary 20 weeks gestation of ([facility]) state, incidental [facility] Diagnosis Encounter for supervision of high risk in first trimester, antepartum (HCC)- Primary Cramping affecting , antepartum (HCC) Vaginal spotting Other specified noninflammatory disorder of vagina 12 weeks gestation of ([facility]) state, incidental Screening for diabetes mellitus- Primary 24 weeks gestation of ([facility]) state, incidental Encounter for supervision of high risk in second trimester, antepartum (HCC) Pain with urination Renal colic Vaginal discharge Leukorrhea, not specified as infective documented [facility] this [facility] Diagnosis Encounter for supervision of high risk in first trimester, antepartum (HCC)- Primary Cramping affecting , antepartum (HCC) Vaginal spotting Other specified noninflammatory disorder of vagina 12 weeks gestation of ([facility]) state, incidental Encounter for supervision of high risk in second trimester, antepartum (HCC)- Primary Decreased movements in second trimester, single or unspecified fetus ([facility]) 25 weeks gestation of ([facility]) state, incidental documented [facility]* Diagnosis Left arm pain- Primary Pain in soft tissues of limb documented in this encounter [facility] Work Phone: Evaluation note* Diagnosis state, incidental ([facility])- Primary state, incidental Close exposure to COVID-19 virus Fatigue, unspecified type documented in this encounter [facility] Work Phone: Hospital Discharge instructions Additional Instructions Thank you for trusting us with your care today! Please take Tylenol (2 pills, 650 mg)every 6 hours as needed for pain and fever control. Please return to the emergency department if your symptoms change or worsen. Please follow with your primary care physician for further outpatient evaluation and management.[facility] Work Phone: Reason for referral (narrative)No reason for referral information availableWAdena Pike [facility] Work Phone: Summary Purpose Family History No Family History Records FoundNo Family History Records FoundNo Family History Records FoundNo Family History Records FoundNo Family History Records FoundNo Family History Records FoundNo Family History Records FoundNo Family History Records Found Advance Directives No Advanced Directives Records FoundDocuments on File Type Date Recorded Patient Sanitation Manager Expl anation Advance Directive(s) 11/24/2020 5:15 PM Advance Directive(s) 06/25/2019 3:57 AM Advance Directive(s) 11/22/2016 9:14 PM Advance Directive(s) 06/14/2016 10:05 PM Advance Directive(s) 04/13/2016 1:43 AM Advance Directive(s) 12/14/2015 6:42 PM Advance Directive Response Recorded Date/ Time Advance Directives No May 04, 2017 12:50pm Living Will No May 04 12:50pm Power of Cable Placer No May 04, 2017 12:50pm Advance Directive Response Recorded Date/ Time Living Will No July 15, 2024 6:55pm Do you have a Healthcare Power of Cable Placer? No July 15, 2024 6:55pm Advance Directives [...] Therapy Diagnoses Pelvic pain in female Procedures ID OFFICE/OUTPATIENT NEW HIGH MDM 60 MINUTES Malia Valles MD [address] [place] [address] [facility] [address] [place] [address] Referral ID Status Reason Start Date Expiration Date Visits Requested Visits Authorized [id number] Pending Review Eval and Treat 06/30/2023 06/24/2024 99 99 Specialty Diagnoses / Procedures Referred By Contac t Referred To Contact [facility] Diagnoses Dyspareunia in female Procedures CONSULT TO LYE BATH OPERATOR OFFICE/OUTPATIENT NEW HIGH MDM 60 MINUTES Sylvia Becker, MAMMOGRAPHY TECHNICIAN.[employer]ISH[employer] [address] [place] [address] [facility] [place] [address] Referral ID Status Reason Start Date Expiration Date Visits Requested Visits Authorized [id number] Authorized PCP Requested Referral Auto-Generate d Referral 07/10/2023 07/09/2024 1 1 Specialty Diagnoses / Procedures Referred By Contac t Referred To Contact CT IMAGING Diagnoses Right lower quadrant abdominal pain Procedures CT ABD/PEL W IVCON CT ABD & PELVIS W/CONTRAST Sylvia Becker, MAMMOGRAPHY TECHNICIAN.[employer] FINISHING FOREMAN [address] [place] [address] [place] [address] Referral ID Status Reason Start Date Expiration Date V isits Requested Visits Authorized [id number] Closed Auto-Generate d Referral 07/10/2023 08/08/2024 1 1 Additional Source Comments INFORMATION SOURCE (unrecogn ized section and content) DATE CREATED AUTHOR 07/08/2018 [employer] DATE CREATED AUTHOR AUTHOR'S ORGANIZ ATION 11/09/2018 [employer] DATE CREATED AUTHOR AUTHOR'S ORGANIZ ATION 06/27/2019 [facility] DATE CREATED AUTHOR AUTHOR'S ORGANIZ ATION 12/24/2019 [facility] DATE CREATED AUTHOR AUTHOR'S ORGANIZ ATION 06/14/2024 [employer] [facility] DATE CREATED AUTHOR AUTHOR'S ORGANIZ ATION 09/05/2024 [facility] DATE CREATED AUTHOR AUTHOR'S ORGANIZ ATION 01/26/2025 [facility] DATE CREATED AUTHOR AUTHOR'S ORGANIZ ATION 02/20/2025 [facility] Source Comments (unrecognize d section and content) In the event this informatio n is protected by the Federal Confidentiality of Alcohol and Drug Abuse Patient Records regulations: The Federal rules restrict any use of the information to criminally investigate or prosecute any alcohol or drug abuse patient.[facility] the event this information is protected by the Federal Confidentiality of Alcohol and Drug Abuse Patient Records regulations: The Federal rules restrict any use of the information to criminally investigate or prosecute any alcohol or drug abuse patient.[facility] HospitalIn the event this information is protected by the Federal Confidentiality of Alcohol and Drug Abuse Patient Records regulations: The Federal rules restrict any use of the information to criminally investigate or prosecute any alcohol or drug abuse patient.[facility] HospitalIn the event this information is protected by the Federal Confidentiality of Alcohol and Drug Abuse Patient Records regulations: The Federal rules restrict any use of the information to criminally investigate or prosecute any alcohol or drug abuse patient.[facility] HospitalIn the event this information is protected by the Federal Confidentiality of Alcohol and Drug Abuse Patient Records regulations: The Federal rules restrict any use of the information to criminally investigate or prosecute any alcohol or drug abuse patient.[facility] HospitalIn the event this information is protected by the Federal Confidentiality of Alcohol and Drug Abuse Patient Records regulations: The Federal rules restrict any use of the information to criminally investigate or prosecute any alcohol or drug abuse patient.[facility] HospitalIn the event this information is protected by the Federal Confidentiality of Alcohol and Drug Abuse Patient Records regulations: The Federal rules restrict any use of the information to criminally investigate or prosecute any alcohol or drug abuse patient.[facility] HospitalIn the event this information is protected by the Federal Confidentiality of Alcohol and Drug Abuse Patient Records regulations: The Federal rules restrict any use of the information to criminally investigate or prosecute any alcohol or drug abuse patient.[facility] HospitalIn the event this information is protected by the Federal Confidentiality of Alcohol and Drug Abuse Patient Records regulations: The Federal rules restrict any use of the information to criminally investigate or prosecute any alcohol or drug abuse patient.[facility] HospitalIn the event this information is protected by the Federal Confidentiality of Alcohol and Drug Abuse Patient Records regulations: The Federal rules restrict any use of the information to criminally investigate or prosecute any alcohol or drug abuse patient.[facility] HospitalIn the event this information is protected by the Federal Confidentiality of Alcohol and Drug Abuse Patient Records regulations: The Federal rules restrict any use of the information to criminally investigate or prosecute any alcohol or drug abuse patient.[facility] HospitalIn the event this information is protected by the Federal Confidentiality of Alcohol and Drug Abuse Patient Records regulations: The Federal rules restrict any use of the information to criminally investigate or prosecute any alcohol or drug abuse patient.[facility] HospitalIn the event this information is protected by the Federal Confidentiality of Alcohol and Drug Abuse Patient Records regulations: The Federal rules restrict any use of the information to criminally investigate or prosecute any alcohol or drug abuse patient.[facility] HospitalIn the event this information is protected by the Federal Confidentiality of Alcohol and Drug Abuse Patient Records regulations: The Federal rules restrict any use of the information to criminally investigate or prosecute any alcohol or drug abuse patient.[facility] HospitalIn the event this information is protected by the Federal Confidentiality of Alcohol and Drug Abuse Patient Records regulations: The Federal rules restrict any use of the information to criminally investigate or prosecute any alcohol or drug abuse patient.[facility] HospitalIn the event this information is protected by the Federal Confidentiality of Alcohol and Drug Abuse Patient Records regulations: The Federal rules restrict any use of the information to criminally investigate or prosecute any alcohol or drug abuse patient.[facility] HospitalIn the event this information is protected by the Federal Confidentiality of Alcohol and Drug Abuse Patient Records regulations: The Federal rules restrict any use of the information to criminally investigate or prosecute any alcohol or drug abuse patient.[facility] HospitalIn the event this information is protected by the Federal Confidentiality of Alcohol and Drug Abuse Patient Records regulations: The Federal rules restrict any use of the information to criminally investigate or prosecute any alcohol or drug abuse patient.[facility] HospitalIn the event this information is protected by the Federal Confidentiality of Alcohol and Drug Abuse Patient Records regulations: The Federal rules restrict any use of the information to criminally investigate or prosecute any alcohol or drug abuse patient.[facility] HospitalIn the event this information is protected by the Federal Confidentiality of Alcohol and Drug Abuse Patient Records regulations: The Federal rules restrict any use of the information to criminally investigate or prosecute any alcohol or drug abuse patient.[facility] HospitalIn the event this information is protected by the Federal Confidentiality of Alcohol and Drug Abuse Patient Records regulations: The Federal rules restrict any use of the information to criminally investigate or prosecute any alcohol or drug abuse patient.[facility] HospitalIn the event this information is protected by the Federal Confidentiality of Alcohol and Drug Abuse Patient Records regulations: The Federal rules restrict any use of the information to criminally investigate or prosecute any alcohol or drug abuse patient.[facility] HospitalIn the event this information is protected by the Federal Confidentiality of Alcohol and Drug Abuse Patient Records regulations: The Federal rules restrict any use of the information to criminally investigate or prosecute any alcohol or drug abuse patient.[facility] HospitalIn the event this information is protected by the Federal Confidentiality of Alcohol and Drug Abuse Patient Records regulations: The Federal rules restrict any use of the information to criminally investigate or prosecute any alcohol or drug abuse patient.[facility] HospitalIn the event this information is protected by the Federal Confidentiality of Alcohol and Drug Abuse Patient Records regulations: The Federal rules restrict any use of the information to criminally investigate or prosecute any alcohol or drug abuse patient.[facility] HospitalIn the event this information is protected by the Federal Confidentiality of Alcohol and Drug Abuse Patient Records regulations: The Federal rules restrict any use of the information to criminally investigate or prosecute any alcohol or drug abuse patient.[facility] HospitalIn the event this information is protected by the Federal Confidentiality of Alcohol and Drug Abuse Patient Records regulations: The Federal rules restrict any use of the information to criminally investigate or prosecute any alcohol or drug abuse patient.[facility] HospitalIn the event this information is protected by the Federal Confidentiality of Alcohol and Drug Abuse Patient Records regulations: The Federal rules restrict any use of the information to criminally investigate or prosecute any alcohol or drug abuse patient.[facility] HospitalIn the event this information is protected by the Federal Confidentiality of Alcohol and Drug Abuse Patient Records regulations: The Federal rules restrict any use of the information to criminally investigate or prosecute any alcohol or drug abuse patient.[facility] HospitalIn the event this information is protected by the Federal Confidentiality of Alcohol and Drug Abuse Patient Records regulations: The Federal rules restrict any use of the information to criminally investigate or prosecute any alcohol or drug abuse patient.[facility] HospitalIn the event this information is protected by the Federal Confidentiality of Alcohol and Drug Abuse Patient Records regulations: The Federal rules restrict any use of the information to criminally investigate or prosecute any alcohol or drug abuse patient.[facility] HospitalIn the event this information is protected by the Federal Confidentiality of Alcohol and Drug Abuse Patient Records regulations: The Federal rules restrict any use of the information to criminally investigate or prosecute any alcohol or drug abuse patient.[facility] HospitalIn the event this information is protected by the Federal Confidentiality of Alcohol and Drug Abuse Patient Records regulations: The Federal rules restrict any use of the information to criminally investigate or prosecute any alcohol or drug abuse patient.[facility] HospitalIn the event this information is protected by the Federal Confidentiality of Alcohol and Drug Abuse Patient Records regulations: The Federal rules restrict any use of the information to criminally investigate or prosecute any alcohol or drug abuse patient.[facility] HospitalIn the event this information is protected by the Federal Confidentiality of Alcohol and Drug Abuse Patient Records regulations: The Federal rules restrict any use of the information to criminally investigate or prosecute any alcohol or drug abuse patient.[facility] HospitalIn the event this information is protected by the Federal Confidentiality of Alcohol and Drug Abuse Patient Records regulations: The Federal rules restrict any use of the information to criminally investigate or prosecute any alcohol or drug abuse patient.[facility] HospitalIn the event this information is protected by the Federal Confidentiality of Alcohol and Drug Abuse Patient Records regulations: The Federal rules restrict any use of the information to criminally investigate or prosecute any alcohol or drug abuse patient.[facility] HospitalIn the event this information is protected by the Federal Confidentiality of Alcohol and Drug Abuse Patient Records regulations: The Federal rules restrict any use of the information to criminally investigate or prosecute any alcohol or drug abuse patient.[facility] HospitalIn the event this information is protected by the Federal Confidentiality of Alcohol and Drug Abuse Patient Records regulations: The Federal rules restrict any use of the information to criminally investigate or prosecute any alcohol or drug abuse patient.[facility] HospitalIn the event this information is protected by the Federal Confidentiality of Alcohol and Drug Abuse Patient Records regulations: The Federal rules restrict any use of the information to criminally investigate or prosecute any alcohol or drug abuse patient.[facility] HospitalIn the event this information is protected by the Federal Confidentiality of Alcohol and Drug Abuse Patient Records regulations: The Federal rules restrict any use of the information to criminally investigate or prosecute any alcohol or drug abuse patient.[facility] HospitalIn the event this information is protected by the Federal Confidentiality of Alcohol and Drug Abuse Patient Records regulations: The Federal rules restrict any use of the information to criminally investigate or prosecute any alcohol or drug abuse patient.[facility] HospitalIn the event this information is protected by the Federal Confidentiality of Alcohol and Drug Abuse Patient Records regulations: The Federal rules restrict any use of the information to criminally investigate or prosecute any alcohol or drug abuse patient.[facility] HospitalIn the event this information is protected by the Federal Confidentiality of Alcohol and Drug Abuse Patient Records regulations: The Federal rules restrict any use of the information to criminally investigate or prosecute any alcohol or drug abuse patient.[facility] Reason for Visit (unrecogniz ed section and content) Reason Comments Establish Care Reason Comments Rx Refills Reason Comments Results 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 Reason Comments Lab Orders Reason Comments [...] CT ABD & PELVIS W/CONTRAST Sylvia Becker, MAMMOGRAPHY TECHNICIAN.DRYWALL FINISHING FOREMAN [address] [place] [address] [place] [address] Referral ID Status Reason Start Date Expiration Date V isits Requested Visits Authorized [id number] Closed Auto-Generate d Referral 07/10/2023 08/08/2024 1 [...] Reason Onset Date Comments [facility] Comments Problem Visit Reason Comments [...] Reason Onset Date Comments ED Follow-up 08/29/2024 [facility] 2024 Reason Comments ER F/U Reason Onset Date Comments Care 09/05/2024 Reason Comments US Specialty Diagnoses / Procedures Referred By Cathy mejia Referred To Contact [facility] Diagnoses Encounter for supervision of high risk in first trimester, antepartum (HCC) Procedures OBSTETRIC ULTRASOUND WHI US PREG UTERUS AFTER 1ST TRIMEST GESTATION Freda Santillan APRN.DRYWALL FINISHING FOREMAN [address] [place] [address] Phone: tel: fax: [facility] [place] [address] [place] [address] Referral ID Status Reason Start Date Expiration Date V isits Requested Visits Authorized [id number] Closed Auto-Generate d Referral 08/01/2024 08/01/2025 1 1 Reason Onset Date Comments Care 09/11/2024 Reason Onset Date Comments Care 10/03/2024 Reason Comments Records Referral ID Status Reason Start Date Expiration Date V isits Requested Visits Authorized [id number] Closed Auto-Generate d Referral 08/01/2024 08/01/2025 1 1 Reason Onset Date Comments Care 10/31/2024 Reason Onset Date Comments Care 11/28/2024 Reason Onset Date Comments Care 12/04/2024 Reason Comments Numbness Reason Comments Illness Care Teams (unrecognized sec tion and content) Restaurant Inspector Relationship Specialty Start Date End Date Elisabet Morgan, MAMMOGRAPHY TECHNICIAN.DRYWALL FINISHING FOREMAN [address], [place] [phone] PCP - General Family Practice 07/12/21 Restaurant Inspector Relationship Specialty Start Date End Date Elisabet Morgan, MAMMOGRAPHY TECHNICIAN.DRYWALL FINISHING FOREMAN [address], [place] [phone] PCP - General Family Practice 07/12/21 Restaurant Inspector Relationship Specialty Start Date End Date Elisabet Morgan, MAMMOGRAPHY TECHNICIAN.DRYWALL FINISHING FOREMAN [address], [place] [phone] PCP - General Family Practice 07/12/21 Restaurant Inspector Relationship Specialty Start Date End Date Elisabet Morgan, MAMMOGRAPHY TECHNICIAN.DRYWALL FINISHING FOREMAN [address], [place] [phone] PCP - General Family Practice 07/12/21 Restaurant Inspector Relationship Specialty Start Date End Date Elisabet Morgan, MAMMOGRAPHY TECHNICIAN.DRYWALL FINISHING FOREMAN [address] [place] [address] PCP - General Family Practice 07/12/21 Restaurant Inspector Relationship Specialty Start Date End Date Joselyn Lovelace MD [address] [place] [address], [address] [place], [place] [phone] PCP - General 11/15/18 Restaurant Inspector Relationship Specialty Start Date End Date Elisabet Morgan, MAMMOGRAPHY TECHNICIAN.DRYWALL FINISHING FOREMAN [address], [place] [phone] PCP - General Family Medicine 07/12/21 Restaurant Inspector Relationship Specialty Start Date End Date Joselyn Lovelace MD [address] [place] [address], [address] [place], [place] [phone] PCP - General 11/15/18 Team Status: Active [...] PA Attending Provider, Referring Pr ovider Active Restaurant Inspector Relationship Specialty Start Date End Date Joselyn Lovelace MD [address] [place] [address] [address] [place], [place] [phone] PCP - General 11/15/18 Restaurant Inspector Relationship Specialty Start Date End Date Joselyn Lovelace MD [address] [place] [address] [address] [place], [place] [phone] PCP - General 11/15/18 Restaurant Inspector Relationship Specialty Start Date End Date Elisabet Morgan, MAMMOGRAPHY TECHNICIAN.DRYWALL FINISHING FOREMAN [address] [place] [place] [address] PCP - General Family Medicine 07/12/21 Restaurant Inspector Relationship Specialty Start Date End Date Elisabet Morgan, MAMMOGRAPHY TECHNICIAN.DRYWALL FINISHING FOREMAN [address] [facility] [place] [place] [address] PCP - General Family Medicine 07/12/21 Restaurant Inspector Relationship Specialty Start Date End Date Elisabet Morgan, MAMMOGRAPHY TECHNICIAN.DRYWALL FINISHING FOREMAN [address] [facility] [place] [place] [address] PCP - General Family Medicine 07/12/21 Restaurant Inspector Relationship Specialty Start Date End Date Elisabet Morgan, MAMMOGRAPHY TECHNICIAN.DRYWALL FINISHING FOREMAN [address] [place] [address] PCP - General Family Medicine 07/12/21 Restaurant Inspector Relationship Specialty Start Date End Date Elisabet Morgan, MAMMOGRAPHY TECHNICIAN.DRYWALL FINISHING FOREMAN [address] [place], [place] [phone] PCP - General Family Medicine 07/12/21 Restaurant Inspector Relationship Specialty Start Date End Date Elisabet Morgan, MAMMOGRAPHY TECHNICIAN.DRYWALL FINISHING FOREMAN [address] [place], [place] [phone] PCP - General Family Medicine 07/12/21 Restaurant Inspector Relationship Specialty Start Date End Date Elisabet Morgan, MAMMOGRAPHY TECHNICIAN.DRYWALL FINISHING FOREMAN [address] [place] [address] PCP - General Family Medicine 07/12/21 Restaurant Inspector Relationship Specialty Start Date End Date Elisabet Morgan, MAMMOGRAPHY TECHNICIAN - DRYWALL FINISHING FOREMAN [address] [place] [address] PCP - General Family Medicine 07/12/21 Team Status: Active Member Role Status Dates Elisabet Morgan GREEN CHAIN OFFBEARER, GREEN CHAIN OFFBEARER-C Primary Care Provider Active Team Status: Inactive Member Role Status Dates Dr. Jacinto Abarca , DO Emergency Provider Active Start: July 15, 2024 End: July 15, 2024 Elisabet Morgan GREEN CHAIN OFFBEARER, GREEN CHAIN OFFBEARER-C Primary Care Provider Active Start: July 15, 2024 End: July 15, 2024 Restaurant Inspector Relationship Specialty Start Date End Date Elisabet Morgan, MAMMOGRAPHY TECHNICIAN.DRYWALL FINISHING FOREMAN [address] [place] [address] PCP - General Family Medicine 07/12/21 Restaurant Inspector Relationship Specialty Start Date End Date QuedenElisabet A, MAMMOGRAPHY TECHNICIAN.DRYWALL FINISHING FOREMAN [address] [place] [address] PCP - General Family Medicine 07/12/21 Restaurant Inspector Relationship Specialty Start Date End Date QueElisabet pablo A, MAMMOGRAPHY TECHNICIAN.DRYWALL FINISHING FOREMAN [address] [place] [address] PCP - General Family Medicine 07/12/21 Restaurant Inspector Relationship Specialty Start Date End Date QuedenElisabet A, MAMMOGRAPHY TECHNICIAN.DRYWALL FINISHING FOREMAN [address] [place] [address] PCP - General Family Medicine 07/12/21 Restaurant Inspector Relationship Specialty Start Date End Date QueElisabet pablo A, MAMMOGRAPHY TECHNICIAN.DRYWALL FINISHING FOREMAN [address] [place] [address] PCP - General Family Medicine 07/12/21 Restaurant Inspector Relationship Specialty Start Date End Date Elisabet Morgan A, MAMMOGRAPHY TECHNICIAN.DRYWALL FINISHING FOREMAN [address] [place] [address] PCP - General Family Medicine 07/12/21 Restaurant Inspector Relationship Specialty Start Date End Date QueElisabet pablo A, MAMMOGRAPHY TECHNICIAN.DRYWALL FINISHING FOREMAN [address] [place] [address] PCP - General Family Medicine 07/12/21 Restaurant Inspector Relationship Specialty Start Date End Date QueElisabet pablo A, MAMMOGRAPHY TECHNICIAN.DRYWALL FINISHING FOREMAN [address] [place] [address] PCP - General Family Medicine 07/12/21 Restaurant Inspector Relationship Specialty Start Date End Date QuedenElisabet A, MAMMOGRAPHY TECHNICIAN.DRYWALL FINISHING FOREMAN [address] [place] [address] PCP - General Family Medicine 07/12/21 Restaurant Inspector Relationship Specialty Start Date End Date Eilsabet Morgan, MAMMOGRAPHY TECHNICIAN.DRYWALL FINISHING FOREMAN [address] [place] [address] PCP - General [facility] Medicine 07/12/21 Restaurant Inspector Relationship Specialty Start Date End Date Elisabet Morgan, MAMMOGRAPHY TECHNICIAN.DRYWALL FINISHING FOREMAN [address] [place] [address] [address] - [facility] Medicine 07/12/21 Restaurant Inspector Relationship Specialty Start Date End Date Elisabet Morgan, MAMMOGRAPHY TECHNICIAN.DRYWALL FINISHING FOREMAN [address] [place], [place] [id number] PCP - [facility] Medicine 07/12/21 Restaurant Inspector Relationship Specialty Start Date End Date Elisabet Morgan, MAMMOGRAPHY TECHNICIAN.DRYWALL FINISHING FOREMAN [address] [place] [address] PCP - General [facility] Medicine 07/12/21 Goals (unrecognized section and [...] BE BASED ON THE PRIMARY CLINICAL RECORDS. [facility]. provides no warranty or guarantee of the accuracy or completeness of information in this document.
--- NOTE | 2025-03-18 08:12 | PCM.HP.OB ---
HPI - General General Date of Admission: 03/18/25 Date of Service: 03/18/25 Chief Complaint: Induction HPI Narrative GABE DONALDSON, is a 29 F who presents induction of labor. Plan for cytotec and chung. Epidural prn Maternal Data Information Final TORRI: 03/15/25 Gestational age: 40+3 PFSH PFSH Medical History Contact with and (suspected) exposure to other viral communicable diseases Acute streptococcal pharyngitis COVID-19 URI (upper respiratory infection) Home Medications ?Medication ?Instructions ?Recorded ?Last Taken ?Type xvdukeuxwilvxlk-wpzjsobmplvwrbi-SD 10 ml PO Q4H PRN 12/06/22 Unknown History 2 mg-30 mg-10 mg/5 mL oral syrup clindamycin HCl 300 mg capsule 300 mg PO Q8H 12/06/22 Unknown History methylprednisolone 4 mg tablets in See Rx Instructions PO PER PKG DIR 12/06/22 Unknown Rx a dose pack (Medrol (Landry)) #21 tabs norgestimate 0.25 mg-ethinyl 1 tab PO DAILY 12/06/22 Unknown History estradiol 0.035 mg tablet ([place]) ferrous sulfate 325 mg (65 mg 325 mg PO DAILY 03/09/25 03/08/25 23:00 History iron) tablet (Feosol) vit no.95-ferrous 1 tab PO DAILY 03/09/25 03/08/25 23:00 History fumarate 28 mg-folic acid 800 mcg tablet () Allergy/AdvReac Type Severity Reaction Status Date / Time amoxicillin Allergy Angioedema Verified 03/09/25 03:34 Penicillins (PCN) Allergy Angioedema Verified 03/09/25 03:34 Social History Smoking Status: Current every day smoker tobacco type: e-cigarettes alcohol intake: never ROS Constitutional Constitutional: Denies fatigue, fever(s) or malaise Eyes Eyes: Denies change in vision ENT HEENT: Denies dizziness or headache(s) Cardiovascular Cardiovascular: Denies chest pain, dyspnea or lightheadedness Respiratory/Chest Respiratory/Chest: Denies cough or dyspnea Gastrointestinal Gastrointestinal: Denies change in bowel habits Genitourinary Genitourinary: Denies burning urination or genital lesions Integumentary Integumentary: Denies rash Neurologic Neurologic: Denies confusion, dizziness, headache(s), numbness or weakness Vital Signs Vital Signs Vital Signs: 03/18/25 08:05 03/18/25 08:05 03/18/25 08:05 Temperature Temperature Source Temporal Pulse Rate 89 Respiratory Rate Blood Pressure 136/82 H BP Systolic 136 BP Diastolic 82 03/18/25 08:05 03/18/25 08:05 Temperature 98.4 F Temperature Source Pulse Rate Respiratory Rate 16 Blood Pressure BP Systolic BP Diastolic Weight Weight: 95.6 kg Body Mass Index (BMI) 36.1 Physical Exam Const alert and no apparent distress General Appearance: cooperative HEENT normocephalic Resp normal respiratory effort Cardio regular rate GI soft to palpation GI Narrative: gravid, nontender, appropriate for gestational age Extremity no calf tenderness General Extremity: edema Skin no wounds Rashes: No rashes noted Psych activity/motor behavior normal Labs Labs Labs: Blood Type O NEGATIVE Antibody Screen Pending Hct, (37-47) 35.6 % L Hgb, (12.0-15.0) 12.2 g/dL Obstetrics Ultrasound Syphilis Total Ab Pending Assessment & Plan (1) 40 weeks gestation of : (2) Elective induction of labor planned: PLAN: Plan GBS negative EPidural prn Cytotec/chung AROM/Pit prn
[2025-03-18 08:31] LABS: Hematocrit 33.3 % (37-47); Hemoglobin 11.4 g/dL (12.0-15.0); Mean Corp Hgb Conc 34.2 g/dL (32-36); Mean Corpuscular Volume 97.4 fL (81-99); Platelet Count 182 K/mm3 (150-450); RBC Distribution Width CV 14.8 % (11.6-14.6); RBC Distribution Width SD 51.1 fl (35.1-43.9); Red Blood Count 3.42 M/mm3 (4.2-5.4); White Blood Count 10.9 K/mm3 (4.4-11.0)
[2025-03-18 08:32] LABS: Immature Granulocytes Count 0.050 X10^3/uL (0.0-0.0); Mean Platelet Vol. 12.3 fl (6.2-12.0)
[2025-03-18 10:32] LABS: Syphilis Antibodies Nonreactive (Nonreactive)
[2025-03-18] MEDS: 0.9% Saline Lock 10 ML Syringe IV (16:11)
[2025-03-18] MEDS: Lactated Ringers 1,000 ML 200 ML IV ×2 (16:12→19:42)
[2025-03-18] MEDS: LACTATED RINGERS 500 ML 999 ML IV ×2 (17:30→19:43)
--- NOTE | 2025-03-18 20:06 | PN.OBGYN_ITS ---
Subjective Subjective /-2. Discussed chung bulb placement. Patient requests to walk for a little bit first. Very uncomfortable with exams. Objective Data Objective Data Vital Signs: Vital Signs Temp Pulse Resp BP Pulse Ox 98.3 F 60 18 124/58 H 97 03/18/25 19:21 03/18/25 19:22 03/18/25 19:21 03/18/25 19:22 03/18/25 19:21 Weight: 95.6 kg Body Mass Index (BMI) 36.1 Intake & Output: Intake and Output for Last 24 Hours 03/16/25 03/17/25 03/18/25 23:59 23:59 23:59 Intake Total 1200 / 1200 Output Total 300 / 300 Balance 900 / 900 Lab / Micro Data 03/18/25 08:00 Labs: Laboratory Results - last 24 hr 03/18/25 08:00: WBC 10.9, RBC 3.42 L, Hgb 11.4 L, Hct 33.3 L, MCV 97.4, MCH 33.3 H, MCHC 34.2, RDW Std Deviation 51.1 H, RDW Coeff of Jodi 14.8 H, Plt Count 182, MPV 12.3 H, Immature Gran % (Auto) 0.500, Neut % (Auto) 66.0, Lymph % (Auto) 27.1, [place] % (Auto) 5.3, Eos % (Auto) 0.8, Baso % (Auto) 0.3, Absolute Neuts (auto) 7.2, Absolute Lymphs (auto) 2.94, Syphilis Total Ab Nonreactive, Blood Type O NEGATIVE, Antibody Screen NEGATIVE NST FHR Rate Baby A Baseline: 135 Variability:: Moderate Accelerations:: 15 x 15 Decelerations:: None NST Reactive:: Yes FHR Category:: Category I Uterine Activity:: irritable Assessment & Plan (1) Elective induction of labor planned: (2) 40 weeks gestation of : PLAN: Plan Possible chung vs pitocin
[2025-03-18] MEDS: 0.9% Normal Saline Single 100 ML IV.SOLN. INTRA-UTER (20:58)
--- NOTE | 2025-03-18 21:03 | PN.OBGYN_ITS ---
Subjective Subjective [place] bulb placed without difficulty. 1.5/70/-2. Will plan for pitocin when able Objective Data Objective Data Vital Signs: Vital Signs Temp Pulse Resp BP Pulse Ox 98.3 F 60 18 124/58 H 97 03/18/25 19:21 03/18/25 19:22 03/18/25 19:21 03/18/25 19:22 03/18/25 19:21 Weight: 95.6 kg Body Mass Index (BMI) 36.1 Intake & Output: Intake and Output for Last 24 Hours 03/16/25 03/17/25 03/18/25 23:59 23:59 23:59 Intake Total 1700 / 1700 Output Total 300 / 300 Balance 1400 / 1400 Lab / Micro Data 03/18/25 08:00 Labs: Laboratory Results - last 24 hr 03/18/25 08:00: WBC 10.9, RBC 3.42 L, Hgb 11.4 L, Hct 33.3 L, MCV 97.4, MCH 33.3 H, MCHC 34.2, RDW Std Deviation 51.1 H, RDW Coeff of Jodi 14.8 H, Plt Count 182, MPV 12.3 H, Immature Gran % (Auto) 0.500, Neut % (Auto) 66.0, Lymph % (Auto) 27.1, [place] % (Auto) 5.3, Eos % (Auto) 0.8, Baso % (Auto) 0.3, Absolute Neuts (auto) 7.2, Absolute Lymphs (auto) 2.94, Syphilis Total Ab Nonreactive, Blood Type O NEGATIVE, Antibody Screen NEGATIVE NST FHR Rate Baby A Baseline: 120 Variability:: Moderate Accelerations:: 15 x 15 Decelerations:: None FHR Category:: Category I Uterine Activity:: irregular Assessment & Plan (1) Elective induction of labor planned: (2) 40 weeks gestation of : PLAN: Plan pitocin and arom when able
[2025-03-18] MEDS: Lactated Ringers 1,000 ML 999 ML IV (22:05)
[2025-03-18] MEDS: fentaNYL-bupivacaine (epidural) 100 ML BAG EPIDURAL (22:45)
[2025-03-19] VITALS (26 sets, daily range): BP systolic 107–172; BP diastolic 55–79; PULSE 52–98; RESP 15–18; TEMP 36.1–37.8; O2SAT 93–100
[2025-03-19] MEDS: Lactated Ringers 1,000 ML 200 ML IV ×2 (02:14→07:30)
[2025-03-19] MEDS: fentaNYL-bupivacaine (epidural) 100 ML BAG EPIDURAL ×2 (03:00→07:43)
[2025-03-19] MEDS: LACTATED RINGERS 500 ML 999 ML IV (06:18)
--- NOTE | 2025-03-19 07:25 | PCM.PN.OB ---
Subjective Subjective 9 cm. + scalp stim. Has had no pitocin. Comfortable with epidural. Objective Data Objective Data Vital Signs: Vital Signs Temp Pulse Resp BP Pulse Ox 98.1 F 59 L 16 133/65 H 97 03/19/25 06:28 03/19/25 06:47 03/19/25 06:28 03/19/25 06:47 03/19/25 06:28 Weight: 95.6 kg Body Mass Index (BMI) 36.1 Intake & Output: Intake and Output for Last 24 Hours 03/17/25 03/18/25 03/19/25 23:59 23:59 23:59 Intake Total 2700 / 2700 1000 / 1000 Output Total 300 / 300 1600 / 1600 Balance 2400 / 2400 -600 / -600 Lab / Micro Data 03/18/25 08:00 Labs: Laboratory Results - last 24 hr 03/18/25 08:00: WBC 10.9, RBC 3.42 L, Hgb 11.4 L, Hct 33.3 L, MCV 97.4, MCH 33.3 H, MCHC 34.2, RDW Std Deviation 51.1 H, RDW Coeff of Jodi 14.8 H, Plt Count 182, MPV 12.3 H, Immature Gran % (Auto) 0.500, Neut % (Auto) 66.0, Lymph % (Auto) 27.1, [place] % (Auto) 5.3, Eos % (Auto) 0.8, Baso % (Auto) 0.3, Absolute Neuts (auto) 7.2, Absolute Lymphs (auto) 2.94, Syphilis Total Ab Nonreactive, Blood Type O NEGATIVE, Antibody Screen NEGATIVE NST FHR Rate Baby A Baseline: 130 Variability:: Moderate Accelerations:: 15 x 15 Decelerations:: Late and Variable FHR Category:: Category II Uterine Activity:: q4 Assessment & Plan (1) Elective induction of labor planned: (2) 40 weeks gestation of : PLAN: Plan FHR tracing improved with IVF and position changes. 9 cm. anticipate vaginal delivery
--- NOTE | 2025-03-19 08:39 | PCM.PN.CNM ---
Subjective Subjective Patient seen at bedside. Comfortable with epidural. Denies any pain. Objective Data Objective Data Vital Signs: Vital Signs Temp Pulse Resp BP Pulse Ox 97.1 F L 58 L 18 144/66 H 97 03/19/25 07:35 03/19/25 07:36 03/19/25 07:35 03/19/25 07:36 03/19/25 06:28 Weight: 210 lb 12.191 oz Body Mass Index (BMI) 36.1 Intake & Output: Intake and Output for Last 24 Hours 03/17/25 03/18/25 03/19/25 23:59 23:59 23:59 Intake Total 2700 / 2700 2000 / 2000 Output Total 300 / 300 1600 / 1600 Balance 2400 / 2400 400 / 400 Lab / Micro Data 03/18/25 08:00 Labs: Laboratory Results - last 24 hr 03/18/25 08:00: Syphilis Total Ab Nonreactive, Blood Type O NEGATIVE, Antibody Screen NEGATIVE Assessment & Plan (1) Elective induction of labor planned: (2) 40 weeks gestation of : (3) Obesity affecting : (4) Anxiety and depression: (5) Anemia affecting in third trimester: PLAN: Plan CE complete dilation Practice pushing - difficult to feel due to epidural- will decrease rate Cat. [address] Alanis notified and is collaborating physician
[2025-03-19] MEDS: Oxytocin 15 Units/NS 250ml 15 UNITS/250 ML IV.SOLN 2 UNITS IV (09:22)
--- NOTE | 2025-03-19 11:11 | OB.VAGDELI_ITS ---
Maternal Data Information Gestational age: 40.4 Vaginal Delivery Maternal Presentation Maternal Presentation: Elective Induction Type of Induction: Cytotec Vaginal Delivery Information Procedure Performed: Vacuum Assisted Vaginal Delivery Station at time of placement: +3 Number of vacuum pulls: 2 Number of vacuum pop offs: 0 Surgeon/Practitioner: Jyotsna Dorsey Date of Procedure: 03/19/25 Pre-Procedure Diagnosis: Obesity in , 40 weeks gestation, anemia in Post-Procedure Diagnosis: same, live female Type of anesthesia: Epidural Estimated Blood Loss: 250 Time of Delivery: 10:35 Findings Description of procedure: Patient was complete and pushing. I was notified of deep variables with pushing. I came to evaluate patient head was at +3 station with pushing. There was mild caput noted. At this time decision made to use vacuum for expedited delivery. Patient had an epidural with good pain management. Farias catheter was in and draining. I discussed the risks and benefits of the vacuum delivery with the patient including but not limited to scalp lacerations of the head, vaginal lacerations, brain bleed for the fetus. After discussion patient was agreeable to proceed with vacuum use. The patient pushed 1 more time without vacuum. The vacuum was then placed at 550 mmHg-vacuum was placed at the flexion point on the head. At this time with contractions and good maternal pushing efforts total of 2 pulls with the vacuum before delivery of the head. Once the head was delivered the vacuum was removed and the rest the infant's body delivered without delay. The was then placed on the maternal chest for immediate skin to skin and stimulation. Delayed cord clamping was performed. At this time Pitocin was started and placenta was delivered intact without complication. Evaluation of the perineum and the vagina revealed a left sulcus tear and a 3 a laceration. Rectal exam was performed prior to the start of the repair and did not reveal any damage to the rectal mucosa. Part of the anal sphincter was grasped with Allises and the anal sphincter was repaired using 2-0 Vicryl suture in an overlapping fashion. At this time the sulcus on the left was reapproximate using 2-0 Vicryl. The remainder of the laceration was reapproximated using 2-0 Vicryl in a standard fashion. Skin was closed using 3-0 Vicryl. Rectal exam performed after repair no palpable sutures through the rectal mucosa were appreciated. Patient tolerated the procedure well. Presentation: Vertex Amniotic Membrane Rupture Type: Spontaneous Amniotic Fluid Description: Clear and Other (Terminal meconium at the time of delivery) Placental Delivery Description: Spontaneous Placenta Disposition: [facility] Specimen collected: No Cord Vessel Description: 3 Vessels Cord Entanglement: None Infant A Gender: Female (1 minute): 7 (5 minute): 9 Delayed Cord Clamping: Yes Chair Lift Operator olive grower: No Post Vaginal Deli Medications given after delivery: IV Pitocin Episiotomy Description: None Laceration: Midline, Vaginal Extension/lac (Left sulcus tear) and 3rd degree Complication Complications: No
[2025-03-19] MEDS: Oxytocin 15 Units/NS 250ml 15 UNITS/250 ML IV.SOLN 83 UNITS IV (11:12)
[2025-03-19] MEDS: Vancomycin HCl 1,500 MG in 0.9% Normal Saline (500mL Bag) 500 ML 250 MG IV (12:02)
[2025-03-19] MEDS: Ketorolac 30 MG/ML Syringe IV (14:22)
[2025-03-19] MEDS: GLYCERIN/WITCH HAZEL (TUCKS) MED..PAD 1 EACH TOPICAL (23:27)
[2025-03-20 06:20] LABS: Hematocrit 27.0 % (37-47); Hemoglobin 9.1 g/dL (12.0-15.0); Immature Granulocytes Count 0.060 X10^3/uL (0.0-0.0); Mean Corp Hgb Conc 33.7 g/dL (32-36); Mean Corpuscular Volume 97.8 fL (81-99); Mean Platelet Vol. 11.8 fl (6.2-12.0); NRBC Flagged by Analyzer 0 % (0-5); Platelet Count 138 K/mm3 (150-450); RBC Distribution Width CV 15.3 % (11.6-14.6); RBC Distribution Width SD 53.0 fl (35.1-43.9); Red Blood Count 2.76 M/mm3 (4.2-5.4); White Blood Count 12.5 K/mm3 (4.4-11.0)
--- NOTE | 2025-03-20 07:04 | PCM.PN.CNM ---
Subjective Subjective Patient seen at bedside. Denies any pain. Ambulating and voiding without difficulty. Pain controlled with medication. Objective Data Objective Data Vital Signs: Vital Signs Temp Pulse Resp BP Pulse Ox O2 Del Method 97.8 F 54 L 16 131/79 H 98 Room Air 03/19/25 23:21 03/19/25 23:21 03/19/25 23:21 03/19/25 23:21 03/19/25 23:21 03/19/25 23:21 Oxygen Delivery Method Room Air Weight: 210 lb 12.191 oz Body Mass Index (BMI) 36.1 Intake & Output: Intake and Output for Last 24 Hours 03/18/25 03/19/25 03/20/25 23:59 23:59 23:59 Intake Total 2700 / 2700 4530.00 / 4530.00 Output Total 300 / 300 2650 / 2650 Balance 2400 / 2400 1880.00 / 1880.00 Lab / Micro Data Attestation: I reviewed the patient's lab results. 03/20/25 06:05 Labs: Laboratory Results - last 24 hr 03/20/25 06:05: WBC 12.5 H, RBC 2.76 L, Hgb 9.1 L, Hct 27.0 L, MCV 97.8, MCH 33.0 H, MCHC 33.7, RDW Std Deviation 53.0 H, RDW Coeff of Jodi 15.3 H, Plt Count 138 L, MPV 11.8, Immature Gran % (Auto) 0.500, Neut % (Auto) 75.0 H, Lymph % (Auto) 18.2 L, [place] % (Auto) 5.3, Eos % (Auto) 0.8, Baso % (Auto) 0.2, Absolute Neuts (auto) 9.4 H, Absolute Lymphs (auto) 2.28, Nucleated RBC % 0 ROS Eyes Eyes: Denies blurry vision, change in vision or spots in vision ENT HEENT: Denies dizziness or headache(s) Cardiovascular Cardiovascular: Denies abdominal pain, chest pain or dyspnea Respiratory/Chest Respiratory/Chest: Denies cough, dyspnea, shortness of breath at rest or shortness of breath with exertion Gastrointestinal Gastrointestinal: Denies abdominal pain, diarrhea or vomiting Genitourinary Genitourinary: Denies change in urinary stream, difficulty urinating or dysuria Musculoskeletal Musculoskeletal: Reports none Integumentary Integumentary: Denies rash Neurologic Neurologic: Denies dizziness, headache(s), memory loss or weakness Physical Exam Const alert and no apparent distress General Appearance: cooperative and comfortable Exam Limitations: no limitations HEENT normocephalic Eyes General Eye: normal appearance of both eyes Neck full ROM General: normal visual inspection Chest Chest: symmetrical chest wall rise Resp normal respiratory effort and normal air movement Effort and Inspection: symmetric chest movement Auscultation: clear to auscultation bilaterally Cardio regular rate and regular rhythm GI normal to inspection, nondistended, normoactive bowel sounds Back/Spine normal ROM Extremity full ROM and no calf tenderness General Extremity: normal exam except as noted Skin no rashes or lesions noted Neuro oriented x3 Speech: speech normal Psych mental status grossly normal Thought Process: normal thought process Assessment & Plan (1) Anemia affecting in third trimester: (2) Anxiety and depression: (3) (spontaneous vaginal delivery): (4) Third degree laceration of perineum during delivery, : PLAN: Plan PPD 1 VAVD- 3rd degree Pain controlled with medications Hgb. 9.1 down from 11- start oral iron Has changed to formula feeding Increase ambulation Sitz baths today Anticipate D/C tomorrow
[2025-03-20 08:30] VITALS: BP 128/71; PULSE 74; RESP 16; O2SAT 97
[2025-03-20] MEDS: Prenatal Vits Tablet 1 TABLET PO (11:09)
[2025-03-20] MEDS: GLYCERIN/WITCH HAZEL (TUCKS) MED..PAD 1 EACH TOPICAL (11:16)
[2025-03-20] MEDS: Benzocaine/Lanolin/Aloe Vera 85 GM Spray 1 SPRAY TOPICAL (11:16)
[2025-03-20] MEDS: SELF ADMINISTRATION OF MEDS 1 EACH NOTE (13:09)
[2025-03-20 14:35] VITALS: BP 133/69; PULSE 66; RESP 16
--- NOTE | 2025-03-20 15:57 | PCM.PN.OB ---
Subjective Subjective Patient is doing well. She notes some vaginal soreness. Otherwise offers no complaints. She denies chest pain, shortness of breath, lightness, dizziness, leg pain. Lochia is normal. She is tolerating regular diet without nausea or vomiting. She is ambulating voiding without difficulty. Objective Data Objective Data Vital Signs: Vital Signs Temp Pulse Resp BP Pulse Ox O2 Del Method 97.8 F 66 16 133/69 H 97 Room Air 03/19/25 23:21 03/20/25 14:35 03/20/25 14:35 03/20/25 14:35 03/20/25 08:30 03/20/25 08:30 Oxygen Delivery Method Room Air Weight: 210 lb 12.191 oz Body Mass Index (BMI) 36.1 Intake & Output: Intake and Output for Last 24 Hours 03/18/25 03/19/25 03/20/25 23:59 23:59 23:59 Intake Total 2700 / 2700 4530.00 / 4530.00 Output Total 300 / 300 2650 / 2650 Balance 2400 / 2400 1880.00 / 1880.00 Lab / Micro Data 03/20/25 06:05 Labs: Laboratory Results - last 24 hr 03/20/25 06:05: WBC 12.5 H, RBC 2.76 L, Hgb 9.1 L, Hct 27.0 L, MCV 97.8, MCH 33.0 H, MCHC 33.7, RDW Std Deviation 53.0 H, RDW Coeff of Jodi 15.3 H, Plt Count 138 L, MPV 11.8, Immature Gran % (Auto) 0.500, Neut % (Auto) 75.0 H, Lymph % (Auto) 18.2 L, [place] % (Auto) 5.3, Eos % (Auto) 0.8, Baso % (Auto) 0.2, Absolute Neuts (auto) 9.4 H, Absolute Lymphs (auto) 2.28, Nucleated RBC % 0 03/20/25 12:55: Screen NEGATIVE, Baby's Blood Type O POSITIVE, Baby's FABIAN NEGATIVE Physical Exam Const alert and no apparent distress General Appearance: comfortable Resp normal respiratory effort GI soft to palpation, non-tender and non-distended GI Narrative: FF@U Assessment & Plan (1) Third degree laceration of perineum during delivery, : (2) (spontaneous vaginal delivery): PLAN: Patient is day 1 from a vaginal delivery. She is doing well. Routine care.
[2025-03-20] MEDS: Rho(D) Immune Globulin 300 MCG (1500 Unit) Syringe IV (17:03)
[2025-03-20] MEDS: Senna/Docusate Sodium 1 Tablet PO (17:18)
[2025-03-20 19:25] VITALS: BP 140/67; PULSE 60; RESP 16; TEMP 36.6; O2SAT 98
[2025-03-21 02:00] VITALS: BP 130/78; PULSE 80; RESP 17; TEMP 36.6; O2SAT 97
[2025-03-21] MEDS: SELF ADMINISTRATION OF MEDS 1 EACH NOTE ×2 (05:28→10:05)
[2025-03-21 07:59] VITALS: BP 129/74; PULSE 64; RESP 16; TEMP 36.4
--- NOTE | 2025-03-21 08:59 | PCM.PN.OB ---
Subjective Subjective Doing well per patient and nursing staff. Ambulating and taking PO without difficulty. Voiding and passing flatus. Pain controlled. , services for assistance. Denies headache, visual changes, chest pain, shortness of breath, leg pain or increased bleeding. Lochia normal. Objective Data Objective Data Vital Signs: Vital Signs Temp Pulse Resp BP Pulse Ox O2 Del Method 97.5 F L 64 16 129/74 H 97 Room Air 03/21/25 07:59 03/21/25 07:59 03/21/25 07:59 03/21/25 07:59 03/21/25 02:00 03/21/25 02:00 Oxygen Delivery Method Room Air Weight: 210 lb 12.191 oz Body Mass Index (BMI) 36.1 Intake & Output: Intake and Output for Last 24 Hours 03/19/25 03/20/25 03/21/25 23:59 23:59 23:59 Intake Total 4530.00 / 4530.00 Output Total 2650 / 2650 Balance 1880.00 / 1880.00 Lab / Micro Data 03/20/25 06:05 Labs: Laboratory Results - last 24 hr 03/20/25 12:55: Screen NEGATIVE, Baby's Blood Type O POSITIVE, Baby's FABIAN NEGATIVE ROS Constitutional Constitutional: Reports systems reviewed and no addt'l complaints, except as documented; Denies headache(s) Eyes Eyes: Denies acute decrease in peripheral vision, blurry vision or change in vision ENT HEENT: Reports systems reviewed and no addt'l complaints, except as documented Cardiovascular Cardiovascular: Denies chest pain or dizziness Respiratory/Chest Respiratory/Chest: Denies cough, dyspnea, dyspnea on exertion, shortness of breath at rest or shortness of breath with exertion Gastrointestinal Gastrointestinal: Denies abdominal pain, diarrhea, nausea or vomiting Genitourinary Genitourinary: Denies abdominal discomfort Musculoskeletal Musculoskeletal: Denies limited range of motion Integumentary Integumentary: Reports systems reviewed and no addt'l complaints, except as documented Neurologic Neurologic: Reports systems reviewed and no addt'l complaints, except as documented Psychiatric Psychiatric: Reports systems reviewed and no addt'l complaints, except as documented Endocrine Endocrinology: Reports systems reviewed and no addt'l complaints, except as documented Hematologic/Lymphatic Hematologic/Lymphatic: Reports systems reviewed and no addt'l complaints, except as documented Allergic/Immunologic Allergic/Immunologic: Reports systems reviewed and no addt'l complaints, except as documented Physical Exam Const alert and oriented x3 General Appearance: cooperative Orientation / Consciousness: awake, oriented to person, oriented to place and oriented to time Exam Limitations: no limitations HEENT normocephalic Head and Scalp: normal to inspection, normocephalic and atraumatic Face and Sinus: normal facial exam Eyes General Eye: normal appearance of both eyes Neck full ROM Chest Chest: symmetrical chest wall rise Resp normal respiratory effort and normal air movement Auscultation: clear to auscultation bilaterally Cardio regular rate, regular rhythm, S1 normal heart sound, S2 normal heart sound, no murmurs, no rub, no gallops and no clicks GI normal to inspection, nondistended, normoactive bowel sounds and non-tender GI Narrative: Fundus firm 2 below U appearance of the vagina normal Narrative: Normal lochia rubra Bladder / Kidney Exam: no CVA tenderness Back/Spine normal ROM Extremity normal to inspection and full ROM Skin no rashes or lesions noted Neuro oriented x3, CN's II-XII intact bilaterally and moves all extremities Sensorium / Orientation: awake, alert and oriented to person Motor Exam: clonus absent Deep Tendon Reflexes: Rt Patellar (L4): 2+ and Lt Patellar (L4): 2+ Assessment & Plan (1) Third degree laceration of perineum during delivery, : (2) (spontaneous vaginal delivery): (3) Anxiety and depression: PLAN: Plan 1) Routine care 2) Vitals signs stable 3) Pain controlled 4) , services PRN 5) D/C home 6) Follow up in 2 weeks and 6 weeks
--- NOTE | 2025-03-21 08:59 | PCM.DC.SUM ---
Providers Date of Admission: 03/18/25 Primary Care Physician: LAYLA Bartholomew Reason For Visit: VAGINAL Diagnosis Discharge Diagnosis (1) Third degree laceration of perineum during delivery, : Status: Acute Code(s): O70.20 - Third degree perineal laceration during delivery, unspecified (2) (spontaneous vaginal delivery): Status: Acute Code(s): O80 - Encounter for full-term uncomplicated delivery Medications at Discharge Home Medications ferrous sulfate 325 mg (65 mg iron) tablet (Feosol) 325 mg PO DAILY 03/09/25 vit no.95-ferrous fumarate 28 mg-folic acid 800 mcg tablet () 1 tab PO DAILY 03/09/25 acetaminophen 500 mg tablet 1,000 mg (2 x 500 mg) PO Q6H PRN PRN Pain 1-10 Or Fever #0 tabs 03/21/25 ibuprofen 600 mg tablet 600 mg PO Q6H PRN PRN Pain Score 1-10 #30 tabs 03/21/25 oxycodone 5 mg tablet 5 mg PO Q6H 7 days #10 tabs 03/21/25 sennosides 8.6 mg-docusate sodium 50 mg tablet (Stimulant Laxative Plus) 1 tab-cap PO DAILY #30 tabs 03/21/25 Hospital Course Summary of Care Provided Minutes Spent on Discharge: 15 Weight / BMI Weight Weight: 210 lb 12.191 oz Body Mass Index (BMI) 36.1 PRE- weight 142 lb PRE- Body Mass Index 24.2 (BMI) ABG / Lab / Microbiology Data 03/20/25 06:05 Laboratory: Laboratory Results - last 24 hr 03/20/25 12:55: Screen NEGATIVE, Baby's Blood Type O POSITIVE, Baby's FABIAN NEGATIVE D/C Instructions Discharge Activity: Return to Normal Activity, May Drive, May Shower and May Take a Tub Bath May resume sexual activity in: 6 weeks Weight Bearing Status: Full weight bearing Call your doctor if you observe: Fever of 101 or Higher, Inability to urinate, Using more than 1 pad per hour, Shortness of breath, Chest pain, Increased palpitations (irregular heartbeat), Calf discomfort and Uncontrolled pain DC O2, CPAP, BIPAP Needs Home O2 Discharge instructions: No Please Follow Up With: Villalpando,[place], CNM When: 2 week virtual visit and 6 week visit Meaningful Use Info Meaningful Use Meaningful Use Diagnoses (Choose all that apply): None applicable Discharge Plan Admission Admit Date/Time: 03/18/25 07:38 Primary Reason for Your Visit: Vaginal Delivery, 3rd degree laceration Attending Provider: Jyotsna Dorsey Primary Care Provider: Elisabet Morgan CLINICAL STAFF PHARMACIST Discharge Orders/Prescriptions Prescriptions: New sennosides-docusate sodium [Stimulant Laxative Plus] 8.6-50 mg Tablet 1 tab-cap PO DAILY Qty: 30 0RF acetaminophen 500 mg Tablet 1,000 mg PO Q6H PRN PRN (Reason: Pain 1-10 Or Fever) Qty: 0 0RF ibuprofen 600 mg Tablet 600 mg PO Q6H PRN PRN (Reason: Pain Score 1-10) Qty: 30 0RF oxycodone 5 mg Tablet 5 mg PO Q6H 7 Days Qty: 10 0RF Continued PNV no.95-ferrous fumarate-FA [] 28 mg iron- 800 mcg tablet 1 tab PO DAILY ferrous sulfate [Feosol] 325 mg (65 mg iron) tablet 325 mg PO DAILY Referrals / Follow Up: Elisabet Morgan CLINICAL STAFF PHARMACIST, CLINICAL STAFF PHARMACIST-C [Primary Care Provider, Family Practice] Disposition Disposition (needs filled in before D/C Order can be placed): Home, Self Care
[2025-03-21] MEDS: Prenatal Vits Tablet 1 TABLET PO (10:01)
[2025-03-21] MEDS: GLYCERIN/WITCH HAZEL (TUCKS) MED..PAD 1 EACH TOPICAL (10:01)
[2025-03-21] MEDS: Senna/Docusate Sodium 1 Tablet PO (10:01)
[2025-03-21 14:45] VITALS: BP 121/72; PULSE 74; RESP 16; TEMP 37.1
--- NOTE | 2025-03-25 10:20 | CASEMGMT ---
Social Work Assessment Labor and Delivery Unit Patient Address: [address] [place] [id number] Phone number: [phone] Date of Referral: 03/19/25 Time of Referral:? 1344 Referred By: Dr. Alanis Date of Intervention: ??03/20/25 Time of Intervention:? 9745 Reason for Referral:? mental health Sw completed chart review and acknowledges social work consult. Sw presented to bedside and introduced self to mother of baby, ANGEL Arizmendi. Sw explained reason for sw involvement and completed psychosocial assessment. History obtained from: medical records, MOB. ESTRELLITA stated that ATIF went home and will be back later. Household composition: Currently residing in the home is MOB and FOB. [place] baby to be included in residence when ready for discharge. Family planning on being discharged tomorrow. MOB denies any housing concerns stating that their home is safe and secure. Patient's parent/guardian status:?ESTRELLITA states that she and ATIF have been together for 6 years, they are . baby is first baby for both of them. ESTRELLITA denies any domestic violence or intimate partner violence, stating that she is safe at home. ? Medical History: ESTRELLITA is 29 year old female who is 1, para 0- now 1 following labor and delivery of . ESTRELLITA received routine care during with [facility]. ESTRELLITA presented to hospital and delivered baby via vaginal delivery on 03/19/25 at 40 weeks gestation. Baby girl, named Dena, was born weighing 8lbs 2oz and had apgars of 7 and 9 at one and five minutes of life, respectfully. ESTRELLITA is working on breast feeding and states that baby will be followed by Dr. Robb for pediatric care and follow up. ? Educational Status:?ESTRELLITA reports that she graduated from high school and [employer] obtained his GED. No problems with reading, learning or comprehension reported. Financial Status: ESTRELLITA states that neither parent is working at this time. 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 ESTRELLITA states that ATIF also stopped working to help care for her prior to her delivery. ESTRELLITA states that he has applied for several jobs, and is hopeful that several opportunities will luna out soon. Supplies:??All necessary baby supplies obtained, including: car seat, safe sleep space, clothes, diapers and wipes. Childcare/Caregiver(s): ESTRELLITA will be the primary caregiver to baby? Transportation:?? ESTRELLITA reports that she has her drivers license and reliable means of transportation, she helps ATIF get where he needs to go. Programs/Agencies Involved: ESTRELLITA is connected to [facility] for insurance and WIC. ??? Children Services/Legal Issues:?No history of children services involvement, no issues or concerns warranting referral to be made at this time. ?? Behavioral Health Issues: ??Mental Health History: ESTRELLITA reports that ATIF may have undiagnosed anxiety, but states that it is managed and it does not prevent him from functioning or completing daily tasks. ESTRELLITA reports that she has been diagnosed with anxiety and depression. ESTRELLITA admits that her anxiety has been less lately, reporting that her depression is what has caused her more distress than her anxiety. ESTRELLITA states that she is not prescribed medication and is not connected to any community mental health resources. ESTRELLITA states that she felt okay during her and reports to feeling okay since delivery. ??? Substance Use History:?ESTRELLITA denies substance use prior to and during . ? Family History:?No family history of addiction or significant mental health history. ? Drug Screens: ?No drug screens observed while completing chart review. ? Family/Social Stressors:? ESTRELLITA denies any issues, stressors or concerns at this time. Support Systems: ESTRELLITA reports that ATIF, her mom, her step mom, her grandma and her sister in laws are her biggest supports Depression/Shaken Baby/Safe Sleeping:? Ashley educated ESTRELLITA on signs and symptoms of baby blues and mood and anxiety disorders to be mindful of during this period. Ashley explained to ESTRELLITA that due to her mental health history of anxiety and depression she is more at risk to experience these symptoms during her period. Sw asked ESTRELLITA what she would do if she were to struggle during this time, and who she would feel comfortable talking to. ESTRELLITA stated that if she felt as though she were struggling she would talk to her aunt. MOB stated that she is a talker, and people would be able to notice if she is struggling. ESTRELLITA states that she feels okay, but also feels more comfortable holding baby and keeping her close opposed to putting her down since delivery. Ashley explained to MOB that holding baby is not going to be sustainable 100% of the time going forward, and MOB is going to need to get some rest. MOB stated that she knows that, and she has gotten some rest here and there. MOB states that she is also in a lot of pain following delivery, so it is easier to just hold baby, opposed to having to get up to care for her. MOB denies feeling down, sad, tearful or anxious at this time. Sw expressed importance of safe sleep inside and outside of the bedroom. Sw educated MOB on always placing baby in bedside bassinet and not sleeping with baby in bed with her. Sw explained that baby's bassinet should be free of any blankets, pillows or stuffed animals. And baby should be sleeping in a onsie and a sleep sack/ swaddle sack for sleep. MOB expressed understanding. Sw discouraged sleeping with baby on a couch or in a reclining chair explaining that sleep accidents also happen in those areas as well. Sw educated MOB on shaken baby prevention. MOB expressed understanding. ASSESSMENT:?MOB and baby admitted following delivery. MOB with mental health history of anxiety and depression, reporting that she struggles more with depression. MOB states that historically when she feels depressed, she tends to isolate herself and cry. MOB states that going forward, she understands the importance of talking about her feelings, and telling someone how she is feeling, specifically during this time. MOB states that so far, she is feeling like herself, denies feeling anxious, down, tearful or sad. MOB was observed sitting on bed and holding baby. MOB made and maintained eye contact with sw during completion of assessment. MOB reports to have supports in place who would be able to recognize if she were struggling with her mental health and who would be able to know how to help and support her. MOB states that she feels a connection to baby and feels a rodriguez with her. MOB looked at baby frequently while talking with sw and was observed to provide appropriate hands on care. PLAN:? No other services requested or indicated. MOB and baby to be discharged when medically ready. Parents were provided literature regarding: signs and symptoms of baby blues and mood and anxiety disorders, Help Me Grow, shaken baby prevention, ABCs of safe sleep and a list of county resources that are available for them should any needs present themselves. Stefania Marti, GLOBAL PROCESS OWNER, CONTROL TOWER OPERATOR
== END 2025-03-21 17:35 | disposition home or self-care (01) | DRG 542 ==
PROVIDERS: Obstetrics & Gynecology; Admitting Provider Obstetrics & Gynecology; PCP Nurse Practitioner Family; Referring Provider Obstetrics & Gynecology; Visit Provider Obstetrics & Gynecology
DX: O76 Abnormality in fetal heart rate and rhythm complicating labor and delivery (principal); Z37.0 Single live birth; O70.20 Third degree perineal laceration during delivery, unspecified; F17.290 Nicotine dependence, other tobacco product, uncomplicated; F32.A Depression, unspecified; F41.9 Anxiety disorder, unspecified; O99.344 Other mental disorders complicating childbirth; Z86.16 Personal history of COVID-19; Z3A.40 40 weeks gestation of pregnancy; O99.02 Anemia complicating childbirth; O77.0 Labor and delivery complicated by meconium in amniotic fluid; O99.334 Smoking (tobacco) complicating childbirth
CPT/HCPCS: 59025; 59050; 85025; 85461; 86780; 86850; 86900; 86901; 90384; 99221; A4216; G0378; J2790; J2791